=== PATIENT | female | born 1945 | race Caucasian/White ===

== ENCOUNTER 2020-10-11 10:13 | Outpatient (REF) | payer MEDICARE, SELFPAY ==
[2020-10-11 10:51] LABS: MANUAL DIFF FLAG NO
[2020-10-11 10:55] LABS: Basophils Absolute Auto 0.1 X10*3/uL (0.0-0.2); Eosinophils Absolute Auto 0.8 X10*3/uL (0.0-0.4); Eosinophils Percent Auto 13.7 % (0-4); Hematocrit 35.3 % (37-47); Hemoglobin 10.9 g/dl (12.0-16.0); Imm Gran Abs Auto 0.01 X10*3/uL (0.00-0.03); Imm Gran Pct Auto 0.2 % (0.0-0.4); Lymphocytes Absolute Auto 1.3 X10*3/uL (1.2-4.9); Lymphocytes Percent Auto 21.6 % (20-40); Mean Corpuscular HGB Conc 30.9 g/dl (31.0-35.0); Mean Corpuscular Hemoglobin 29.8 pg (27.0-33.0); Mean Corpuscular Volume 96.4 fL (80-98); Mean Platelet Volume 10.7 fL (9.4-12.3); Monocytes Absolute Auto 0.5 X10*3/uL (0.1-1.2); Neutrophils Absolute Auto 3.3 X10*3/uL (2.0-8.3); Neutrophils Percent Auto 55.5 % (45-73); Platelet Count 317 X10*3/uL (160-400); Red Blood Count 3.66 X10*6/uL (4.20-5.50)
[2020-10-11 11:16] LABS: Estimated Average Glucose 131 mg/dL; Hemoglobin A1c % 6.2 %
[2020-10-11 11:54] LABS: Alanine Aminotransferase 11 U/L (0-31); Albumin Level 4.2 g/dL (3.5-5.0); Alkaline Phosphatase 26 U/L (39-117); Anion Gap 15 (12-20); Aspartate Amino Transferase 14 U/L (5-31); Bilirubin Direct 0.2 mg/dL (0.0-0.5); Bilirubin Total 0.4 mg/dL (0.0-1.0); Blood Urea Nitrogen 42 mg/dL (9-16); Carbon Dioxide 32 mmol/L (22-29); Chloride 99 mmol/L (96-108); Estimated Glomerular Filt Rate 32; Glucose Random 95 mg/dL (60-115); Potassium 5.2 mmol/l (3.3-5.1); Sodium 141 mmol/L (135-145); Total Protein 6.9 g/dL (6.5-8.0)
[2020-10-11 11:59] LABS: TSH reflex Free T4 1.69 mIU/mL (0.32-4.0)
[2020-10-11 12:01] LABS: Creatinine Urine 69.08 mg/dL; Microalbum/Creatinine Ratio Ur 11.5 ug/mg cr
[2020-10-11 12:15] LABS: Syphilis Screen Nonreactive (Nonreactive)
[2020-10-12 13:02] LABS: Absolute CD3 Count 889 cells/uL (840-3060); Absolute CD4 Count 614 cells/uL (490-1740); Absolute CD8 Count 286 cells/uL (180-1170); Absolute Lymphocytes 1379 cells/uL (850-3900); CD4 CD8 Ratio 2.15 (0.86-5.00); Percent CD3 Cells 64 % (57-85); Percent CD4 Cells 45 % (30-61); Percent CD8 Cells 21 % (12-42)
== END 2020-10-11 10:14 | disposition home or self-care (01) ==
LOC: HO.LAB 10:13
PROVIDERS: PCP Pediatrics; Visit Provider Pediatrics
DX: D64.9 Anemia, unspecified (principal); E11.22 Type 2 diabetes mellitus with diabetic chronic kidney disease; E78.5 Hyperlipidemia, unspecified; I10 Essential (primary) hypertension; I48.0 Paroxysmal atrial fibrillation
CPT/HCPCS: 36415; 80053; 80076; 82043; 82248; 83036; 84443; 85025; 86359; 86360; 86780

== ENCOUNTER → 2020-11-27 13:59 | Outpatient (BNVA) | payer MEDICARE, SELFPAY | PROVIDERS: PCP Pediatrics; Visit Provider Internal Medicine | DX: I42.8 Other cardiomyopathies (principal); I48.0 Paroxysmal atrial fibrillation; I10 Essential (primary) hypertension; R55 Syncope and collapse; E11.8 Type 2 diabetes mellitus with unspecified complications | CPT/HCPCS: 93005; 99212 ==

== ENCOUNTER 2021-01-03 15:37 | Outpatient (REF) | payer MEDICARE, SELFPAY ==
--- NOTE | ~2021-01-03 | XR_ITS ---
EXAMINATION: XR BILATERAL HIPS WITH AP PELVIS CLINICAL INFORMATION: Bilateral hip pain COMPARISON: Left hip x-ray October 2018 TECHNIQUE: AP view of the pelvis and single views of each hip were obtained. FINDINGS: Bone alignment is normal. No fracture or dislocation is seen. There is moderate bilateral hip arthritis with joint space narrowing and osteophyte formation. There is a soft tissue calcification adjacent to the right greater trochanter. Bones of the pelvis are normal. There are degenerative changes of the spine. There is evidence of atherosclerotic disease. XR/XR hip BI w PEL1V IMPRESSION: Moderate bilateral hip arthritis.
== END 2021-01-03 15:38 | disposition home or self-care (01) ==
LOC: HO.XRAY 15:37
PROVIDERS: PCP Pediatrics; Visit Provider Pediatrics
DX: M25.551 Pain in right hip (principal); M25.552 Pain in left hip
CPT/HCPCS: 73521

== ENCOUNTER 2021-01-22 12:26 | Outpatient (REF) | payer MEDICARE, SELFPAY ==
--- NOTE | ~2021-01-22 | MM_ITS ---
EXAMINATION: MM DIAGNOSTIC DIGITAL BREAST TOMOSYNTHESIS, BILATERAL CLINICAL INFORMATION: Probable benign bilateral calcifications. Due for yearly. The lifetime risk of breast cancer based on the Tyrer-Cuzick Model is 2%. COMPARISON: Mammography: 11/04/2019, 10/30/2018, 04/29/2018, 10/29/2017, 10/23/2017 (new baseline). TECHNIQUE: Digital breast tomosynthesis is performed in both the craniocaudal and mediolateral oblique views along with computer-aided detection (CAD). Synthesized 2D images are generated from the tomosynthesis. FINDINGS: There are scattered areas of fibroglandular density (ACR BI-RADS breast composition Category b). Parenchymal pattern is similar to prior studies. There is no developing density or interval mass or architectural abnormality. Again, there are multiple bilateral vascular and coarse calcifications. The grouped coarse calcifications central 1:00 left breast and central 3:00 right breast are bilaterally similar, predominantly coarse and likely fibroadenomatous changes. There are no suspicious changes. The axilla and skin contours are unremarkable. Results are provided to the patient at time of visit by the technologist. MM/MM tomosynthesis diagnostic BI IMPRESSION: No significant changes from prior exams. ASSESSMENT: BI-RADS 2: Benign RECOMMENDATION: Routine annual mammography screening. This patient's information was entered into a reminder system with a target due date for their next mammogram.
== END 2021-01-22 12:27 | disposition home or self-care (01) ==
LOC: HO.MAMMO 12:26
PROVIDERS: Visit Provider Pediatrics
DX: R92.1 Mammographic calcification found on diagnostic imaging of breast (principal)
CPT/HCPCS: 77062; 77066

== ENCOUNTER 2021-04-18 10:45 | Outpatient (REF) | payer MEDICARE, SELFPAY ==
[2021-04-18 11:38] LABS: MANUAL DIFF FLAG NO
[2021-04-18 11:44] LABS: Basophils Percent Auto 0.4 % (0-2); Eosinophils Absolute Auto 0.8 X10*3/uL (0.0-0.4); Eosinophils Percent Auto 13.5 % (0-4); Hemoglobin 11.1 g/dl (12.0-16.0); Imm Gran Abs Auto 0.01 X10*3/uL (0.00-0.03); Imm Gran Pct Auto 0.2 % (0.0-0.4); Lymphocytes Absolute Auto 1.4 X10*3/uL (1.2-4.9); Lymphocytes Percent Auto 24.5 % (20-40); Mean Corpuscular HGB Conc 30.8 g/dl (31.0-35.0); Mean Corpuscular Hemoglobin 29.9 pg (27.0-33.0); Mean Platelet Volume 10.4 fL (9.4-12.3); Monocytes Absolute Auto 0.4 X10*3/uL (0.1-1.2); Monocytes Percent Auto 7.6 % (2-11); Neutrophils Percent Auto 53.8 % (45-73); Platelet Count 278 X10*3/uL (160-400); Red Blood Count 3.71 X10*6/uL (4.20-5.50); Red Cell Distribution Width 15.6 % (11.0-16.0); White Blood Count 5.6 X10*3/uL (4.8-10.8)
[2021-04-18 12:10] LABS: Alanine Aminotransferase 6 U/L (0-31); Alkaline Phosphatase 32 U/L (39-117); Anion Gap 13 (12-20); Aspartate Amino Transferase 13 U/L (5-31); Bilirubin Total 0.4 mg/dL (0.0-1.0); Blood Urea Nitrogen 46 mg/dL (9-16); Calcium 9.4 mg/dL (8.4-10.2); Carbon Dioxide 31 mmol/L (22-29); Chloride 103 mmol/L (96-108); Cholesterol 259 mg/dL; Estimated Glomerular Filt Rate 27; Glucose Random 81 mg/dL (60-115); HDL Cholesterol 57 mg/dL; LDL Cholesterol Calculated 179 mg/dl; Potassium 5.2 mmol/L (3.3-5.1); Sodium 142 mmol/L (135-145); Total Protein 6.9 g/dL (6.5-8.0); Triglycerides 118 mg/dL
[2021-04-18 12:24] LABS: TSH reflex Free T4 1.81 uIU/mL (0.32-4.0)
[2021-04-18 12:28] LABS: Vitamin B12 1244 pg/mL (200-900)
[2021-04-18 12:38] LABS: Erythrocyte Sedimentation Rate 21 MM/HR (0-20)
[2021-04-18 13:21] LABS: Creatinine Urine 86.81 mg/dL; Microalbum/Creatinine Ratio Ur 18.4 ug/mg cr
== END 2021-04-18 10:46 | disposition home or self-care (01) ==
LOC: HO.LAB 10:45
PROVIDERS: PCP Pediatrics; Visit Provider Pediatrics
DX: I48.0 Paroxysmal atrial fibrillation (principal); I10 Essential (primary) hypertension; E78.5 Hyperlipidemia, unspecified; E11.9 Type 2 diabetes mellitus without complications; D64.9 Anemia, unspecified; D63.8 Anemia in other chronic diseases classified elsewhere
CPT/HCPCS: 36415; 80053; 80061; 82043; 82306; 82550; 82607; 84443; 85025; 85652

== ENCOUNTER → 2021-08-06 15:06 | Outpatient (BNVA) | payer MEDICARE, SELFPAY | PROVIDERS: PCP Pediatrics; Referring Provider Pediatrics; Visit Provider Internal Medicine | DX: I42.8 Other cardiomyopathies (principal); I48.0 Paroxysmal atrial fibrillation; I10 Essential (primary) hypertension; E11.8 Type 2 diabetes mellitus with unspecified complications; R55 Syncope and collapse | CPT/HCPCS: 99212 ==

== ENCOUNTER 2021-12-24 14:50 | Outpatient (REF) | payer OTHER, SELFPAY ==
--- NOTE | 2021-12-24 | PFT_ITS ---
Post test, the patient is unable to complete maneuvers, both the spirometry, could not complete the lung volume maneuvers, and also could not complete the diffusion capacity maneuvers. The patient was very tired throughout the test. Therefore, the numbers cannot be interpreted correctly. Also to note, the patient became very dizzy after attempting the maneuvers. Therefore, I would not recommend the patient try to undergo pulmonary function studies again. This study was suboptimal. MD SHELBIE [place]/LIAM / [phone]
== END 2021-12-24 14:51 | disposition home or self-care (01) ==
LOC: HO.RESP 14:50
PROVIDERS: PCP Pediatrics; Visit Provider Internal Medicine
DX: Z13.89 Encounter for screening for other disorder (principal)

== ENCOUNTER 2022-01-28 02:27 | Emergency (ER) | payer OTHER, SELFPAY ==
--- NOTE | ~2022-01-28 | XR_ITS ---
EXAMINATION: XR CHEST CLINICAL INFORMATION: Wheezing, dyspnea, rule out pneumonia or CHF COMPARISON: 06/07/2020 TECHNIQUE: Frontal view of the chest was obtained. FINDINGS: Lung volumes are symmetric. No focal consolidation is seen. Central peribronchial thickening is noted. No evidence of pneumothorax, significant pleural effusion, or overt pulmonary edema. The cardiomediastinal contour is unremarkable. No acute osseous findings are seen. XR/XR chest 1V IMPRESSION: No focal consolidation or overt edema. Central peribronchial thickening suggesting airways disease which may be chronic.
[2022-01-28 02:38] VITALS: BP 198/75; PULSE 77; RESP 20; TEMP 36; O2SAT 98; BMI 32.8
[2022-01-28 02:58] LABS: Hematocrit 33.7 % (37.0-47.0); Hemoglobin 10.3 g/dl (12.0-16.0); Mean Corpuscular HGB Conc 30.6 g/dl (31.0-35.0); Mean Corpuscular Hemoglobin 28.8 pg (27.0-33.0); Mean Corpuscular Volume 94.1 fL (80.0-98.0); Mean Platelet Volume 10.8 fL (9.4-12.3); Platelet Count 288 X10*3/uL (160-400); Red Blood Count 3.58 X10*6/uL (4.20-5.50); Red Cell Distribution Width 15.9 % (11.0-16.0); White Blood Count 7.7 X10*3/uL (4.8-10.8)
--- NOTE | 2022-01-28 03:06 | ECG_ITS ---
Test Reason : SOB Blood Pressure : / mmHG Vent. Rate : 077 BPM Atrial Rate : 000 BPM P-R Int : 000 ms QRS Dur : 074 ms QT Int : 426 ms P-R-T Axes : 000 058 085 degrees QTc Int : 482 ms Normal sinus rhythm Normal ECG When compared with ECG of 26-SEP-2019 16:25, No significant changes seen Referred By: Jeronimo Landis Electronically Signed By:MARQUES BELLE MD
--- NOTE | 2022-01-28 03:06 | ED.ASTHMA ---
HPI - Asthma General Chief Complaint: Asthma Stated Complaint: COPD, wheeze/cough Time Seen by Provider: 01/28/22 02:55 Source: patient and family (Granddaughter) Mode of arrival: ambulatory Limitations: language barrier (Patient speaks Tristanian, granddaughter speaks Tristanian and Kittitian, lamp stack developer was used) History of Present Illness HPI Narrative: 76-year-old female who was brought to the emergency department by her granddaughter for evaluation of shortness of breath and wheezing. According to the daughter, they had a very long day today celebrating mother's Day. The patient did eat ice cream and cake as well as other food at home. When the granddaughter was getting ready to put the patient to bed she noted that the patient was wheezing and appeared to be short of breath. This concerned the granddaughter and she brought the patient to the emergency department for evaluation. The patient has had a slight cough which is occasionally productive of white phlegm. She denied headache, nausea, vomiting, chest pain, abdominal pain, change in bowel movements, frequency, urgency, dysuria. She does feel short of breath and states she does feel short of breath when she walks around. MD complaint: wheezing Onset (ago): hour(s) (3) Severity: moderate Context: none known Associated symptoms: dry cough (The occasional nonproductive) and leg edema (Unchanged from baseline) Asthma History: other (History of asthma and COPD) Related Data Current Asthma Therapy: inhaled bronchodilator Home Medications Medication Instructions Recorded Confirmed acetaminophen 300 mg-codeine 30 mg 1 tab PO DAILY PRN 11/27/20 08/06/21 tablet alendronate 70 mg tablet 70 mg PO QWEEK 11/27/20 08/06/21 amlodipine 10 mg tablet 10 mg PO DAILY 11/27/20 08/06/21 atorvastatin 40 mg tablet 40 mg PO BEDTIME 11/27/20 08/06/21 candesartan 16 mg tablet 16 mg PO DAILY 11/27/20 08/06/21 cholecalciferol (vitamin D3) 50 50 mcg PO DAILY 11/27/20 08/06/21 mcg (2,000 unit) tablet docusate sodium 100 mg capsule 100 mg PO BID PRN 11/27/20 08/06/21 duloxetine 60 mg capsule,delayed 60 mg PO DAILY 11/27/20 08/06/21 release ferrous sulfate 325 mg (65 mg 325 mg PO TID 11/27/20 08/06/21 iron) tablet gabapentin 100 mg capsule 100 mg PO DAILY 11/27/20 08/06/21 hydralazine 25 mg tablet 25 mg PO BID 11/27/20 08/06/21 insulin glargine 100 unit/mL 15 unit SUBCUT BEDTIME 11/27/20 08/06/21 subcutaneous solution lidocaine-prilocaine 2.5 %-2.5 % 2.5 g TOPICAL DAILY 11/27/20 08/06/21 topical cream metformin 1,000 mg tablet 1,000 mg PO BID 11/27/20 08/06/21 omega-3 fatty acids-fish oil 340 1 cap PO BID 11/27/20 08/06/21 mg-1,000 mg capsule pantoprazole 40 mg tablet,delayed 40 mg PO DAILY 11/27/20 08/06/21 release simethicone 180 mg capsule 180 mg PO TID PRN 11/27/20 08/06/21 glipizide 10 mg tablet 10 mg PO BID 08/06/21 08/06/21 Previous Rx's Medication Instructions Recorded furosemide 40 mg tablet 40 mg PO DAILY #90 tab 01/23/21 apixaban 5 mg tablet (Eliquis) 5 mg PO BID #180 tab 08/06/21 metoprolol tartrate 50 mg tablet 50 mg PO BID 90 Days #180 tab 08/06/21 Allergies Allergy/AdvReac Type Severity Reaction Status Date / Time faviola [FAVIOLA] AdvReac Intermediate NAUSEA & Verified 08/06/21 15:34 VOMITING Penicillins [PENICILLINS] AdvReac Unknown NAUSEA & Verified 08/06/21 15:34 VOMITING YUCA Allergy Unknown NAUSEA & Uncoded 08/06/21 15:34 VOMITING SARDINES AdvReac Intermediate NAUSEA & Uncoded 08/06/21 15:34 VOMITING Review of Systems Review of Systems: Yes all other systems are reviewed and are negative [facility] Past Medical History [facility] Narrative: Social history: The patient lives at home with her daughter. She does not smoke cigarettes. She does not drink alcohol. She does not use drugs. Medical History Cardiomyopathy Essential hypertension PAF (paroxysmal atrial fibrillation) Type 2 diabetes mellitus with unspecified complications Vasovagal syncope Surgical History No pertinent past surgical history Family History Family History Father No problems noted. Mother No problems noted. Social History Social History Alcohol intake: never Patient Tobacco Use Status: Never used Tobacco Use of substances other than those prescribed or required for medical reasons: No Advance Directives: No Advance Directives Information Provided: Yes Physical Exam Vital Signs: Vital Signs: Last Vital Signs Temp 97.9 F 01/28/22 03:08 Pulse 77 01/28/22 03:08 Resp 15 01/28/22 03:08 BP 174/68 H 01/28/22 03:08 Pulse Ox 99 01/28/22 03:08 BMI result Body Mass Index 32.8 Const: Other: Awake, alert, female patient, she is very pleasant and cooperative, she does not appear to be in distress. HEENT: Head: Yes normal to inspection, Yes normocephalic and Yes atraumatic Ears: external ears normal General nose exam: Normal external nose present Face and sinus: Yes normal facial exam Mouth: Normal oral and palatal mucosa present Throat: Yes posterior oropharynx normal Eyes: General: appearance normal, both eyes and all related structures Pupils: Equal, round and reactive pupils present Neck: Neck: Yes normal visual inspection, Yes no lymphadenopathy, Yes trachea midline and Yes supple Chest: Chest palpation & inspection: normal inspection of the chest and normal palpation of entire chest wall Resp: Effort & Inspection: normal respiratory effort and able to speak in complete sentences Auscultation: wheezes (Diffuse wheezing) Cardio: Rate: regular rate Rhythm: regular rhythm Heart sounds: S1 normal heart sound present, S2 normal heart sound present and no murmurs GI: Inspection: Yes normal to inspection Palpation (GI): Soft to palpation, nontender and no guarding Auscultation: normal bowel sounds : General: Yes no CVA tenderness Back/Spine/Pelvis: Back: no CVA tenderness Skin: General skin exam: no rashes or lesions noted Neuro: Cranial nerves: Yes CN's II-XII intact bilaterally and Yes Equal, round and reactive pupils present Cognition (Neuro): normal cognition Motor exam (neuro): 5/5 motor strength present throughout Extrem: Other: Trace to 1+ pitting edema, bilaterally symmetric Psych: Appearance: grossly normal Speech and movement: Normal speech and movement present Affect: normal affect Attitude: cooperative Thought process: Normal thought process present Thought content: Normal thought content present Course Course Course Narrative: 76-year-old female brought emergency department by her family for evaluation of wheezing, shortness of breath and a cough which is mainly nonproductive occasionally productive of white phlegm. Patient does have a history asthma, COPD, cardiomyopathy. Vital signs revealed an elevated systolic blood pressure of 174/68 otherwise unremarkable. Examination did reveal diffuse wheezing and trace to 1+ lower extremity pitting edema which is symmetric. Differential includes but is not limited to COPD exacerbation, bronchitis with bronchospasm, pulmonary edema, pneumonia. I did order laboratory evaluation includes CBC, CMP, troponin, BNP. I will check a chest x-ray and EKG on the patient as well. Patient was ordered to get a DuoNeb for her wheezing. 0454: Laboratory evaluation: Anemia I H&H of 10.3 and 33.7, chronic. Elevated BUN and creatinine of 48 and 1.84, chronic. High sensitivity troponin I was detectable but not elevated at 6.7. BNP was elevated 237. Radiology evaluation: Chest x-ray revealed no congestive heart failure or pneumonia. Impression is that the patient may be slightly fluid overloaded causing her to have wheezing and possibly an asthma exacerbation as well. The patient did get improvement with the DuoNeb and she has only slight expiratory wheezing at the bases. The patient was given furosemide 80 mg IV and discharged home. I did discuss this plan with the patient's granddaughter and the patient as well. Patient is to restrict fluid today and then resume her normal dose of Lasix tomorrow. MDM - Asthma Lab Data Result diagrams: 01/28/22 02:53 01/28/22 02:53 Labs: Lab Results 01/28/22 01/28/22 01/28/22 Range/Units 02:53 02:53 02:53 WBC 7.7 (4.8-10.8) X10*3/uL RBC 3.58 L (4.20-5.50) X10*6/uL Hgb 10.3 L (12.0-16.0) g/dl Hct 33.7 L (37.0-47.0) % MCV 94.1 (80.0-98.0) fL MCH 28.8 (27.0-33.0) pg MCHC 30.6 L (31.0-35.0) g/dl RDW 15.9 (11.0-16.0) % Plt Count 288 (160-400) X10*3/uL MPV 10.8 (9.4-12.3) fL Absolute Nucleated RBC 0.000 (0.0-0.012) X10*3/uL Nucleated RBC % (auto) 0.0 (0.0-0.2) /100WBC Sodium 142 (135-145) mmol/L Potassium 4.8 (3.3-5.1) mmol/L Chloride 104 (96-108) mmol/L Carbon Dioxide 26 (22-29) mmol/L Anion Gap 17 (12-20) BUN 48 H (9-16) mg/dL Creatinine 1.89 H (0.5-1.4) mg/dL Estim Creat Clear Calc 25.5 Estimated GFR 26 Random Glucose 170 H (60-115) mg/dL Calcium 9.4 (8.4-10.2) mg/dL Total Bilirubin 0.2 (0.0-1.0) mg/dL AST 21 D (5-31) U/L ALT 11 (0-31) U/L Alkaline Phosphatase 34 L (39-117) U/L Troponin I High Sens 6.7 (<3.5-17.0) ng/L B-Natriuretic Peptide 237 H (<100) pg/mL Total Protein 7.0 (6.5-8.0) g/dL Albumin 4.1 (3.5-5.0) g/dL ECG Data Attestation: I personally reviewed and interpreted this ECG as follows: Interpretation: 0310: Normal sinus rhythm with a rate of 77, normal DC, QRS and QTC intervals, no ST segment elevation, no ST segment depression, no significant T-wave abnormalities, no PVCs, no PACs. Discharge Plan Discharge Clinical Impression: Pulmonary edema Qualifiers: Chronicity: acute Qualified Code(s): J81.0 - Acute pulmonary edema Asthma exacerbation Qualifiers: Asthma severity: mild Patient Disposition: Home, Self-Care Instructions: Fluid Restriction (ED) Additional Instructions: Your chest x-ray was unremarkable, there was no pneumonia and there was no evidence for a large amount of fluid in your lungs (congestive heart failure). Your high sensitivity troponin I (marker for heart damage) was not elevated. Your BNP (marker of fluid in the lung) is was elevated at 237 (less than 100 is normal). Given these findings I believe that you may have drank too much fluid yesterday and you now have some small amount of fluid in your lungs that are making you short of breath and this is also causing you to have an asthma exacerbation. Your given Lasix (furosemide) 80 mg IV prior to being discharged from the emergency department. This should make you urinate approximately 1-2 L and hopefully will improve your symptoms. You should restrict the amount of fluid that you drink today. Take your next dose of oral Lasix (furosemide) tomorrow. Follow-up with your doctor in 2 days. Please return to the emergency department if your symptoms get worse or if you develop any symptoms that are concerning to you. Prescriptions: No Action furosemide 40 mg tablet 40 mg PO DAILY Qty: 90 3RF duloxetine 60 mg capsule,delayed release(DR/EC) 60 mg PO DAILY 0RF amlodipine 10 mg tablet 10 mg PO DAILY 0RF lidocaine-prilocaine 2.5-2.5 % cream 2.5 g topical DAILY 0RF gabapentin 100 mg capsule 100 mg PO DAILY 0RF pantoprazole 40 mg tablet,delayed release (DR/EC) 40 mg PO DAILY 0RF hydralazine 25 mg tablet 25 mg PO BID 0RF candesartan 16 mg tablet 16 mg PO DAILY 0RF Fish Oil 340-1,000 mg capsule 1 cap PO BID 0RF docusate sodium 100 mg capsule 100 mg PO BID PRN (Reason: constipation) 0RF alendronate 70 mg tablet 70 mg PO QWEEK 0RF atorvastatin 40 mg tablet 40 mg PO BEDTIME 0RF ferrous sulfate 325 mg (65 mg iron) tablet 325 mg PO TID 0RF simethicone 180 mg capsule 180 mg PO TID PRN (Reason: Constipation) 0RF Lantus U-100 Insulin 100 unit/mL solution 15 unit subcut BEDTIME 0RF metformin 1,000 mg tablet 1,000 mg PO BID 0RF acetaminophen-codeine 300-30 mg tablet 1 tab PO DAILY PRN (Reason: Pain) 0RF cholecalciferol (vitamin D3) 50 mcg (2,000 unit) tablet 50 mcg PO DAILY 0RF glipizide 10 mg tablet 10 mg PO BID 0RF Eliquis 5 mg tablet 5 mg PO BID Qty: 180 3RF metoprolol tartrate 50 mg tablet 50 mg PO BID 90 Days Qty: 180 3RF
[2022-01-28 03:08] VITALS: BP 174/68; PULSE 77; RESP 15; TEMP 36.6; O2SAT 99
[2022-01-28 03:21] LABS: Alanine Aminotransferase 11 U/L (0-31); Albumin Level 4.1 g/dL (3.5-5.0); Alkaline Phosphatase 34 U/L (39-117); Anion Gap 17 (12-20); Aspartate Amino Transferase 21 U/L (5-31); Bilirubin Total 0.2 mg/dL (0.0-1.0); Blood Urea Nitrogen 48 mg/dL (9-16); Calcium 9.4 mg/dL (8.4-10.2); Carbon Dioxide 26 mmol/L (22-29); Chloride 104 mmol/L (96-108); Creatinine Clr Calc Pharmacy 25.5; Estimated Glomerular Filt Rate 26; Glucose Random 170 mg/dL (60-115); Potassium 4.8 mmol/L (3.3-5.1); Sodium 142 mmol/L (135-145)
[2022-01-28 03:32] LABS: B Type Natriuretic Peptide 237 pg/mL (<100); Troponin-I High Sensitivity 6.7 ng/L (<3.5-17.0)
[2022-01-28] MEDS: Furosemide 100 MG/10 ML VIAL 80 MG IVPUSH (05:12)
== END 2022-01-28 05:32 | disposition home or self-care (01) ==
PROVIDERS: Emergency Provider Emergency Medicine Emergency Medical Services
DX: J45.901 Unspecified asthma with (acute) exacerbation (principal); J81.0 Acute pulmonary edema; R06.02 Shortness of breath; I48.0 Paroxysmal atrial fibrillation; I10 Essential (primary) hypertension; E11.9 Type 2 diabetes mellitus without complications
CPT/HCPCS: 36415; 71045; 80053; 83880; 84484; 85027; 93005; 96374; 99284; 99285; J1940

== ENCOUNTER → 2022-02-04 15:50 | Outpatient (BNVA) | payer OTHER, SELFPAY | PROVIDERS: PCP Pediatrics; Referring Provider Pediatrics; Visit Provider Internal Medicine | DX: I48.0 Paroxysmal atrial fibrillation (principal); I11.0 Hypertensive heart disease with heart failure; I50.33 Acute on chronic diastolic (congestive) heart failure; R55 Syncope and collapse; E11.8 Type 2 diabetes mellitus with unspecified complications | CPT/HCPCS: 99212 ==

== ENCOUNTER → 2022-03-12 09:39 | Outpatient (REF) | payer OTHER, SELFPAY ==
--- NOTE | ~2022-03-12 | NM_ITS ---
Myocardial perfusion study Indication: Diastolic heart failure to evaluate for myocardial ischemia Technique: The patient was brought in for a Lexiscan perfusion study on 03/12/2022. Patient performed low-level exercise and was injected 0.4 mg of Lexiscan intravenously. Within a minute of injection, 30 mCi of sestamibi was given intravenously. Images were obtained using the SPECT gamma camera interlaced with the gating device. Images were obtained in supine position. Resting perfusion study was performed on 03/13/2022. Patient was administered 30 mCi of sestamibi intravenously at rest. Images were then obtained in supine position. Images obtained with and without CT attenuation. Total DLP 136 mGy-cm. Images were processed with the software and compared side to side in short axis, horizontal long axis and vertical long axis views. Findings: The stress perfusion study showed non attenuated images show mildly reduced uptake in the basal septum of the LV myocardium. Remainder of the LV myocardium is normally perfused. Attenuation corrected images show minimally reduced/thinning of the apical septal wall of the LV myocardium. The gated study shows low normal LV systolic function with calculated LVEF of 51%. LV cavity is normal in size. The gated study shows normal systolic wall thickening and contraction of segments. Resting study shows no significant change in perfusion pattern compared to stress perfusion study. Gating at rest reveals normal systolic wall motion with ejection fraction at 46%. The findings are consistent with no clear reversible defect suggestive of ischemia. NM/NM cardiolite stress test Impression: 1. Myocardial perfusion imaging study shows likely normal myocardial perfusion 2. Gated LVEF is 51% 3. Transient ischemic dilatation not present EKG is nondiagnostic for ischemia
--- NOTE | 2022-03-12 09:42 | CA_ITS ---
Acquisition Time: 2022-03-12 10:17:16 Total Exercise Time: 00:02:00 Test Indications: Syncope HEART FAILURE Medications: SEE H Protocol: LEXISCAN Max HR: 096 BPM 67% of Pred: 143 BPM Max BP: 146/072 mmHG Max Work Load: 1.0 METS Pharmacological stress test with Lexiscan injection, while sitting and moving left arm, with mild sob, no chest discomfort, with isolated PVC, with normotensive response to injection, with nondiagnostic EKG for ischemia. In recovery she reported abdominal discomfort and was treated with Aminophylline 75mg IVP to reverse Lexiscan with resolution of symptom. Nuclear images pending. Test reviewed with Dr Vaughan. Referred By: Josemanuel Wheeler Overread By: PADMAJA ALATORRE
== END ==
LOC: HO.CARD 09:39
PROVIDERS: Visit Provider Internal Medicine
DX: I50.33 Acute on chronic diastolic (congestive) heart failure (principal)
CPT/HCPCS: 78452; 93017; A9500; J0280; J2785

== ENCOUNTER → 2022-04-12 07:15 | Outpatient (REF) | payer OTHER, SELFPAY ==
--- NOTE | 2022-04-12 07:22 | CA_ITS ---
Transthoracic Echocardiogram Patient (Last, First, Middle): Belen Lemus, Gender: Female Date of : 1945 Age: 76 Procedure Date: 04/12/2022 Procedure Type: Transthoracic Echocardiogram Location: OP Height: 154.94 cm Weight: 84.37 kg BSA: 1.83 m2 Heart Rate: 76 bpm BP: 152 / 76 mmHg Business Intern: SB Referring MD: Josemanuel Wheeler MD Symptoms: I50.33 - Acute on chronic diastolic (congestive) heart fa... Study Quality: Adequate ECG Rhythm: Sinus Conclusions: - Normal left ventricular size, thickness, and systolic function. The visually estimated ejection fraction is between 55-60%. - Mildly increased right ventricular cavity size. There is normal right ventricular systolic function. - Moderately elevated right atrial pressure. Severe pulmonary hypertension is present. Findings Left Ventricle Normal left ventricular size, thickness, and systolic function. The visually estimated ejection fraction is between 55-60%. There is no evidence of regional wall motion abnormalities. Abnormal diastolic function is noted. Spectral Doppler is indicative of a pseudonormal filling pattern. E/E prime ratio is >15, consistent with elevated filling pressures. Right Ventricle Mildly increased right ventricular cavity size. There is normal right ventricular systolic function. Atria The left atrium is mildly dilated. Aortic Valve There is a normal trileaflet aortic valve. There is no aortic valve stenosis. There is no aortic valve regurgitation. Mitral Valve There is mild mitral annular calcification. There is no mitral valve regurgitation. There is no mitral valve stenosis. Pulmonic Valve Normal pulmonic valve structure and function. There is trace pulmonic valve regurgitation. Tricuspid Valve Normal tricuspid valve structure and function. There is trace tricuspid valve regurgitation. Moderately elevated right atrial pressure. Severe pulmonary hypertension is present. Great Vessels All visible segments of the aorta are normal in size. The visualized portions of the pulmonary artery and branches are normal. Venous The inferior vena cava is dilated and collapses less than 50% with inspiration. Pericardium/Pleural There is no evidence of pericardial effusion. Prior Study Comparison Changes noted compared to prior study dated: 10/25/2019. RV mildly dilated. Severe pulmonary hypertension. Measurements 2D Linear Measurements IVSd: 1.04 0.6-0.9/0.6-1.0 cm LVIDd: 4.36 3.9-5.3/4.2-5.9 cm LVIDd Index: 2.38 2.4-3.2/2.2-3.1 cm/m2 LVIDs: 2.92 2.0-3.6 cm LVPWd: 0.88 0.7-1.1 cm LA Diam: 3.90 2.7-3.8/3.0-4.0 cm LAIDs Index: 2.13 1.5-2.3 cm/m2 LV Mass: 171.14 67-162/88-224 g LV Mass Index: 93.52 43-95/49-115 g/m2 LVOT Diam: 2.20 3.0+(-)1.3 cm 2D Systolic Function EF 4C: 50.00 >55% EF 2C: 47.80 >55% EF BiP: 48.80 >55% Mitral Valve MV Pk E: 1.48 MV PK A: 0.81 MV Decel Time: 199.00 E/A: 1.80 E'Lateral: 6.15 E'Medial: 4.58 E/E' Med: 32.30 E/E' Lat: 24.10 PHT: 58.00 MVA PHT: 3.79 Decel [place]: 7.45 Aortic Valve AoV Pk Son: 1.21 AoV Mn Son: 0.83 AoV VTI: 0.27 AoV Pk Grad: 6.00 Aov Mn Grad: 3.00 GERSON Cont.VTI: 2.62 LVOT LVOT Pk Son: 0.84 LVOT Mn Son: 0.62 LVOT VTI: 0.18 LVOT Pk Grad: 3.00 LVOT Mn Grad: 2.00 LVOT Diam: 2.20 LVOT Area: 3.80 Diastolic Function MV Pk E: 1.48 MV Pk A: 0.81 E/A: 1.80 E'Medial: 4.58 E/E' Med: 32.30 E' Laterial: 6.15 E/E' Lat: 24.10 Right Ventricle TAPSE (mm): 17.40 TVS' Son: 9.17 Tricuspid Valve TR Pk Son: 4.09 TR Pk Grad: 67.00 RA Press: 8.00 RVSP: 75.00 Great Vessels Aorta Sinus of Valsalva: 2.60 2.0-3.5 cm Ao Asc: 3.10 2.1-3.4 cm Pulmonary Veins Pulm Vein S/D 0.80 Pulmonary Valve PV Pk Son: 0.91 Peak PV Grad: 3.00 Updated in Other Vendor System with Status of Final Pee Borges MD electronically signed on 04/13/2022 8:42:03 PM with status of Final
== END ==
LOC: HO.CARD 07:15
PROVIDERS: Visit Provider Internal Medicine
DX: I50.33 Acute on chronic diastolic (congestive) heart failure (principal)
CPT/HCPCS: 93306

== ENCOUNTER → 2022-05-14 13:04 | Outpatient (BNVA) | payer OTHER, SELFPAY | PROVIDERS: PCP Pediatrics; Visit Provider Hospitalist | DX: I27.20 Pulmonary hypertension, unspecified (principal); J45.909 Unspecified asthma, uncomplicated; G47.33 Obstructive sleep apnea (adult) (pediatric) | CPT/HCPCS: 99202 ==

== ENCOUNTER → 2022-05-20 14:42 | Outpatient (BNVA) | payer OTHER, SELFPAY | PROVIDERS: PCP Pediatrics; Referring Provider Pediatrics; Visit Provider Internal Medicine | DX: I11.0 Hypertensive heart disease with heart failure (principal); I50.32 Chronic diastolic (congestive) heart failure; I48.0 Paroxysmal atrial fibrillation; I27.20 Pulmonary hypertension, unspecified; E11.8 Type 2 diabetes mellitus with unspecified complications | CPT/HCPCS: 93005; 99212 ==

== ENCOUNTER → 2022-06-03 13:31 | Outpatient (REF) | payer OTHER, SELFPAY | LOC: HO.SL 13:31 | PROVIDERS: PCP Pediatrics; Visit Provider Hospitalist | DX: G47.33 Obstructive sleep apnea (adult) (pediatric) (principal); I27.20 Pulmonary hypertension, unspecified | CPT/HCPCS: 95806 ==

== ENCOUNTER → 2022-06-06 13:50 | Outpatient (REF) | payer OTHER, SELFPAY ==
--- NOTE | ~2022-06-06 | NM_ITS ---
EXAMINATION: PULMONARY PERFUSION STUDY CLINICAL INFORMATION: Pulmonary hypertension, cardiomyopathy. COMPARISON: No previous lung scan is available for comparison. Radiographs of the chest dated 06/06/2022, the same date as this lung scan, are available for comparison. TECHNIQUE: Following the intravenous injection of 1.0 mCi Tc-99m MAA, the lungs were imaged in the anterior and posterior, left and right lateral and PAKISTANI, LEBRON, LPO, and RPO projections using a gamma scintillation camera. FINDINGS: No segmental perfusion defects are present. There is mild heterogeneity present bilaterally. There are no focal anatomic appearing perfusion defects present. NM/NM pul perfusion IMPRESSION: Very low probability of pulmonary embolism.
--- NOTE | ~2022-06-06 | XR_ITS ---
EXAMINATION: XR CHEST 2 VIEWS CLINICAL INFORMATION: Hypertension. COMPARISON: Prior chest radiographs, most recently 01/28/2022. TECHNIQUE: Frontal and lateral views of the chest were obtained. FINDINGS: The heart, great vessels, pulmonary vasculature and mediastinum are normal. The lungs show no focal infiltrate, effusion or pneumothorax. There is no acute osseous abnormality. There is a mild thoracic dextroscoliosis. There is multi-level thoracic spondylosis. XR/XR chest 2V IMPRESSION: No active cardiopulmonary disease.
== END ==
LOC: HO.NUCMED 13:50
PROVIDERS: Visit Provider Hospitalist
DX: I27.20 Pulmonary hypertension, unspecified (principal)
CPT/HCPCS: 71046; 78580; A9540

== ENCOUNTER → 2022-07-29 14:51 | Outpatient (REF) | payer OTHER, SELFPAY ==
--- NOTE | 2022-07-29 14:53 | CA_ITS ---
Transthoracic Echocardiogram Patient (Last, First, Middle): Belen Lemus, Gender: Female Date of : 1945 Age: 76 Procedure Date: 07/29/2022 Procedure Type: Transthoracic Echocardiogram Location: OP Height: 154. cm Weight: 84. kg BSA: 1.82 m2 Heart Rate: 79 bpm BP: 130 / 64 mmHg Roller Shop Utility Worker: CHELSEA Referring MD: Josemanuel Wheeler MD Metal Smelter: Skyler Vaughan MD Symptoms: I27.20 - Pulmonary hypertension, unspecified Study Quality: Adequate ECG Rhythm: Sinus Conclusions: - Moderately elevated right ventricular systolic pressure Findings Left Ventricle Normal left ventricular size, thickness, and systolic function. The visually estimated ejection fraction is between 55-60%. Tricuspid Valve Normal right atrial pressure. Moderate pulmonary hypertension is present. Venous The inferior vena cava is normal in size and collapses greater than 50% with inspiration. Pericardium/Pleural There is no evidence of pericardial effusion. Prior Study Comparison Changes noted compared to prior study dated: 04/12/2022. RV systolic pressure has improved Measurements 2D Linear Measurements IVSd: 1.11 0.6-0.9/0.6-1.0 cm LVIDd: 4.43 3.9-5.3/4.2-5.9 cm LVIDd Index: 2.43 2.4-3.2/2.2-3.1 cm/m2 LVIDs: 3.28 2.0-3.6 cm LVPWd: 0.88 0.7-1.1 cm LV Mass: 184.91 67-162/88-224 g LV Mass Index: 101.60 43-95/49-115 g/m2 Tricuspid Valve TR Pk Son: 3.56 TR Pk Grad: 51.00 RA Press: 3.00 RVSP: 54.00 Updated in Other Vendor System with Status of Final Skyler Vaughan MD electronically signed on 07/29/2022 3:53:47 PM with status of Final
== END ==
LOC: HO.CARD 14:51
PROVIDERS: Visit Provider Internal Medicine
DX: I27.20 Pulmonary hypertension, unspecified (principal)
CPT/HCPCS: 93308

== ENCOUNTER → 2022-08-14 14:13 | Outpatient (BNVA) | payer OTHER, SELFPAY | PROVIDERS: PCP Pediatrics; Referring Provider Pediatrics; Visit Provider Internal Medicine | DX: I11.0 Hypertensive heart disease with heart failure (principal); I50.32 Chronic diastolic (congestive) heart failure; I48.0 Paroxysmal atrial fibrillation; I27.20 Pulmonary hypertension, unspecified; E11.8 Type 2 diabetes mellitus with unspecified complications | CPT/HCPCS: 99212 ==

== ENCOUNTER → 2022-08-19 13:01 | Outpatient (BNVA) | payer OTHER, SELFPAY | PROVIDERS: Visit Provider Hospitalist | DX: J45.909 Unspecified asthma, uncomplicated (principal); G47.33 Obstructive sleep apnea (adult) (pediatric); I27.20 Pulmonary hypertension, unspecified | CPT/HCPCS: Q3014 ==

== ENCOUNTER → 2023-01-29 13:13 | Outpatient (REF) | payer OTHER, SELFPAY ==
--- NOTE | 2023-01-29 13:16 | CA_ITS ---
Transthoracic Echocardiogram Patient (Last, First, Middle): Belen Lemus, Gender: Female Date of : 1945 Age: 77 Procedure Date: 01/29/2023 Procedure Type: Transthoracic Echocardiogram Location: OP Height: 154.94 cm Weight: 85.28 kg BSA: 1.84 m2 Heart Rate: 72 bpm BP: 150 / 65 mmHg Field Advisor: DUNG Referring MD: Josemanuel Wheeler MD Symptoms: I27.20 - Pulmonary hypertension, unspecified Study Quality: Adequate ECG Rhythm: Atrial Fibrillation Conclusions: - The left ventricular systolic function is normal. The calculated ejection fraction is 55% by biplane method. - Evidence suggests grade II (moderate) diastolic dysfunction. - The basal inferior segment is hypokinetic. - No obvious valvular pathology seen on this study. - There is no evidence of pulmonary hypertension. Findings Left Ventricle Normal left ventricular cavity size. There is normal left ventricular wall thickness. The left ventricular systolic function is normal. The calculated ejection fraction is 55% by biplane method. E/E prime ratio is >15, consistent with elevated filling pressures. Evidence suggests grade II (moderate) diastolic dysfunction. LV peak GLS -12.4%. Wall Motion Rest Echo Findings The basal inferior segment is hypokinetic. Right Ventricle Normal right ventricular cavity size and systolic function. Atria The left atrium is mildly dilated. The right atrium is normal in size. Aortic Valve There is a normal trileaflet aortic valve. There is no aortic valve stenosis. There is no aortic valve regurgitation. Mitral Valve There is mild mitral annular calcification. There is trace mitral valve regurgitation. There is no mitral valve stenosis. Pulmonic Valve The pulmonic valve is likely normal. Tricuspid Valve There is trace tricuspid valve regurgitation. There is no evidence of pulmonary hypertension. Great Vessels The asc aorta is normal in size. Small plaque is seen in the sino tubular ridge. Venous The inferior vena cava is mildly dilated and collapses greater than 50% with inspiration. Pericardium/Pleural There is no evidence of pericardial effusion. Prior Study Comparison Changes noted compared to prior study dated: 07/29/2022. Improved RVSP. Recommendations, Care & Conclusions No obvious valvular pathology seen on this study. Measurements 2D Linear Measurements IVSd: 0.84 0.6-0.9/0.6-1.0 cm LVIDd: 4.60 3.9-5.3/4.2-5.9 cm LVIDd Index: 2.50 2.4-3.2/2.2-3.1 cm/m2 LVIDs: 3.50 2.0-3.6 cm LVPWd: 1.16 0.7-1.1 cm LA Diam: 3.90 2.7-3.8/3.0-4.0 cm LAIDs Index: 2.12 1.5-2.3 cm/m2 LV Mass: 198.31 67-162/88-224 g LV Mass Index: 107.78 43-95/49-115 g/m2 LVOT Diam: 2.20 3.0+(-)1.3 cm 2D Systolic Function EF 4C: 51.30 >55% EF 2C: 56.90 >55% EF BiP: 54.60 >55% Mitral Valve MV Pk E: 1.44 MV PK A: 0.84 MV Decel Time: 230.00 E/A: 1.70 E'Lateral: 6.92 E'Medial: 5.26 E/E' Med: 27.40 E/E' Lat: 20.80 PHT: 67.00 MVA PHT: 3.28 Decel [place]: 6.28 Aortic Valve AoV Pk Son: 1.27 AoV Mn Son: 0.93 AoV VTI: 0.32 AoV Pk Grad: 6.00 Aov Mn Grad: 4.00 GERSON Cont.VTI: 2.69 LVOT LVOT Pk Son: 1.01 LVOT Mn Son: 0.68 LVOT VTI: 0.23 LVOT Pk Grad: 4.00 LVOT Mn Grad: 2.00 LVOT Diam: 2.20 LVOT Area: 3.80 Diastolic Function MV Pk E: 1.44 MV Pk A: 0.84 E/A: 1.70 E'Medial: 5.26 E/E' Med: 27.40 E' Laterial: 6.92 E/E' Lat: 20.80 Right Ventricle TAPSE (mm): 21.70 TVS' Son: 9.14 Tricuspid Valve TR Pk Son: 2.22 TR Pk Grad: 20.00 RA Press: 8.00 RVSP: 28.00 Great Vessels Aorta Sinus of Valsalva: 3.20 2.0-3.5 cm Ao Asc: 3.00 2.1-3.4 cm Pulmonary Valve PV Pk Son: 0.81 Peak PV Grad: 3.00 Updated in Other Vendor System with Status of Final Josemanuel Wheeler MD electronically signed on 01/31/2023 2:40:21 PM with status of Final
== END ==
LOC: HO.CARD 13:13
PROVIDERS: PCP Pediatrics; Visit Provider Internal Medicine
DX: I27.20 Pulmonary hypertension, unspecified (principal)
CPT/HCPCS: 93306; 93356

== ENCOUNTER 2023-02-11 15:24 | Outpatient (REF) | payer OTHER, SELFPAY ==
[2023-02-11 16:50] LABS: MANUAL DIFF FLAG NO
[2023-02-11 18:49] LABS: Basophils Percent Auto 0.8 % (0-2); Eosinophils Absolute Auto 0.5 X10*3/uL (0.0-0.4); Eosinophils Percent Auto 10.4 % (0-4); Hematocrit 35.5 % (37.0-47.0); Imm Gran Abs Auto 0.02 X10*3/uL (0.00-0.03); Imm Gran Pct Auto 0.4 % (0.0-0.4); Lymphocytes Absolute Auto 0.9 X10*3/uL (1.2-4.9); Lymphocytes Percent Auto 18.3 % (20-40); Mean Corpuscular Hemoglobin 29.1 pg (27.0-33.0); Mean Corpuscular Volume 93.9 fL (80.0-98.0); Mean Platelet Volume 11.3 fL (9.4-12.3); Monocytes Absolute Auto 0.4 X10*3/uL (0.1-1.2); Monocytes Percent Auto 7.7 % (2-11); Neutrophils Absolute Auto 3.1 x10*3/uL (2.0-8.3); Neutrophils Percent Auto 62.4 % (45-73); Platelet Count 244 X10*3/uL (160-400); Red Blood Count 3.78 X10*6/uL (4.20-5.50); Red Cell Distribution Width 14.8 % (11.0-16.0); White Blood Count 4.9 X10*3/uL (4.8-10.8)
[2023-02-11 19:07] LABS: Alanine Aminotransferase 8 U/L (0-31); Alkaline Phosphatase 30 U/L (39-117); Anion Gap 15 (12-20); Aspartate Amino Transferase 13 U/L (5-31); Bilirubin Total 0.4 mg/dL (0.0-1.0); Blood Urea Nitrogen 36 mg/dL (9-16); Carbon Dioxide 26 mmol/L (22-29); Chloride 104 mmol/L (96-108); Estimated Glomerular Filt Rate 29; Glucose Random 129 mg/dL (60-115); Potassium 4.2 mmol/L (3.3-5.1); Sodium 141 mmol/L (135-145); Total Protein 6.8 g/dL (6.5-8.0)
[2023-02-11 19:09] LABS: B Type Natriuretic Peptide 524 pg/mL (<100)
== END 2023-02-11 15:25 | disposition home or self-care (01) ==
LOC: HO.LAB 15:24
PROVIDERS: PCP Pediatrics; Referring Provider Pediatrics; Visit Provider Nurse Practitioner Family
DX: I50.32 Chronic diastolic (congestive) heart failure (principal); I27.20 Pulmonary hypertension, unspecified; I48.0 Paroxysmal atrial fibrillation; I42.9 Cardiomyopathy, unspecified; G47.33 Obstructive sleep apnea (adult) (pediatric); J45.909 Unspecified asthma, uncomplicated; R07.89 Other chest pain; E11.9 Type 2 diabetes mellitus without complications; Z79.84 Long term (current) use of oral hypoglycemic drugs; Z79.899 Other long term (current) drug therapy
CPT/HCPCS: 36415; 80053; 83880; 85025; 93005; 99212

== ENCOUNTER 2023-03-21 15:54 | Outpatient (REF) | payer OTHER, SELFPAY ==
[2023-03-21 16:50] LABS: Anion Gap 16 (12-20); Blood Urea Nitrogen 35 mg/dL (9-16); Calcium 9.6 mg/dL (8.4-10.2); Carbon Dioxide 22 mmol/L (22-29); Chloride 108 mmol/L (96-108); Estimated Glomerular Filt Rate 28; Glucose Random 179 mg/dL (60-115); Potassium 4.4 mmol/L (3.3-5.1); Sodium 142 mmol/L (135-145)
== END 2023-03-21 15:55 | disposition home or self-care (01) ==
LOC: HO.LAB 15:54
PROVIDERS: Visit Provider Nurse Practitioner Family
DX: R06.02 Shortness of breath (principal)
CPT/HCPCS: 36415; 80048

== ENCOUNTER 2023-04-01 15:02 | Outpatient (AMB) | payer OTHER, SELFPAY ==
--- NOTE | 2023-04-01 15:10 | A.OFFVIS_ITS ---
Intake Vital Signs 04/01/23 15:12 Height 5 ft 2 in Weight 176 lb 5.917 oz BMI 32.3 BP 160/60 H Blood Pressure Location Lt brachial Position Sitting Pulse 79 Pulse Oximetry (%) 96 Intake Visit Reasons: 6-8 WEEK FUP PER DC Intake Note: 6- 8 week f/u per dc Box Blank Machine Feeder Required: No Information Interpreted: clinical only Grain Mill Products Inspector: Grain Mill Products Inspector Present Accompanied by: Grand Child Allergies faviola [FAVIOLA] Adverse Reaction (Intermediate, Verified 04/01/23 15:20) NAUSEA & VOMITING Penicillins [PENICILLINS] Adverse Reaction (Unknown, Verified 04/01/23 15:20) NAUSEA & VOMITING [facility] Allergy (Unknown, Uncoded 02/11/23 15:40) NAUSEA & VOMITING SARDINES Adverse Reaction (Intermediate, Uncoded 02/11/23 15:40) NAUSEA & VOMITING Medication List - Last Reconciled 04/01/23 by Rebeca Ortiz CONSUMER LOAN OFFICER-C acetaminophen-codeine 300-30 mg 1 tab PO DAILY PRN albuterol sulfate 90 mcg/actuation (Ventolin HFA) 2 puffs inhalation Q4H PRN albuterol sulfate 2.5 mg (3 mL) inhalation Q4H PRN alendronate 70 mg PO QWEEK amlodipine 10 mg PO DAILY apixaban (Eliquis) 5 mg PO BID atorvastatin 40 mg PO BEDTIME candesartan 16 mg PO DAILY cholecalciferol (vitamin D3) 50 mcg PO DAILY dexlansoprazole (Dexilant) 60 mg PO DAILY docusate sodium 100 mg PO BID PRN duloxetine 60 mg PO DAILY ferrous sulfate 325 mg PO TID fluticasone propionate 220 mcg/actuation (Flovent HFA) 2 puffs inhalation BID jwlbhovpxxi-ouqhjcbqi-aqnlwkhy 100-62.5-25 mcg (Trelegy Ellipta) 1 inh inhalation DAILY 30 days furosemide 40 mg PO DAILY furosemide (Lasix) 20 mg PO .PRN gabapentin 100 mg PO DAILY glipizide 10 mg PO BID hydralazine 50 mg PO TID 90 days inhalational spacing device (Vortex Holding Chamber) As directed lidocaine-prilocaine 2.5-2.5 % 2.5 grams topical DAILY metformin 1,000 mg PO BID metoprolol tartrate 50 mg PO BID omega-3 fatty acids-fish oil 340-1,000 mg 1 cap PO BID pantoprazole 40 mg PO DAILY prednisone 20 mg PO BID sildenafil (pulm.hypertension) 20 mg PO TID 30 days simethicone 180 mg PO TID PRN HPI 6-8 WEEK FUP PER NC HPI Details Belen is a 77-year-old female past medical history diabetes, pulmonary hypertension, paroxysmal AFib, cardiomyopathy, diastolic heart failure, obstructive sleep apnea who presents for follow-up. Today she presents with her granddaughter who assists with Pakistani Interpretation at their request. Patient is sitting in a wheelchair. She reports chronic issues with daily pain mostly in her back, upper chest and legs. This causes her to breathe shallow. She has history of fibromyalgia and her body as well as these areas are very tender to touch. She is very sedentary at home. No clear PND, orthopnea. She has trace lower leg edema at present. No report of heart palpitations, presyncope, syncope, falls. Taking all meds as directed. Periodic home blood pressure checks obtained. Hydralazine mid day dose is taken if blood pressure is elevated. [facility] Medical History Asthma Cardiomyopathy Essential hypertension ANKIT (obstructive sleep apnea) PAF (paroxysmal atrial fibrillation) Pulmonary hypertension Type 2 diabetes mellitus with unspecified complications Vasovagal syncope Surgical History No pertinent past surgical history Family History Father No problems noted. Mother No problems noted. Social History Alcohol intake: never Patient Tobacco Use Status: Never used Tobacco Review of Systems Const Details: constant pain, currently back, chest, legs Reports body aches and Reports fatigue Resp Details: pain with taking a deep inspiration Denies chest congestion and Denies cough GI Reports belching Musc Reports as per HPI and Reports back pain Psych Details: seems appropriate, granddaughter reports dementia Endo Reports fatigue Physical Exam Vital Signs: Last Vital Signs Pulse 79 04/01/23 15:12 BP 160/60 H 04/01/23 15:12 Pulse Ox 96 04/01/23 15:12 BMI result Body Mass Index 32.3 Const Other: sitting in wheelchair moaning, tenderness to palpation of most areas on body, worse with back, chest, legs General: no acute distress Orientation/consciousness: patient oriented x3 Neck Neck: Yes normal visual inspection Resp Effort & Inspection: normal respiratory effort Auscultation: clear to auscultation bilaterally, no rales, no rhonchi and no wheezes Cardio Jugular venous distension: no JVD Rate: regular rate Rhythm: regular rhythm Heart sounds: S1 normal heart sound present, S2 normal heart sound present, no murmurs and no rubs GI Inspection: Yes normal to inspection Neuro General: patient oriented x3 Extrem General: Yes normal to inspection Psych Appearance: grossly normal Mental Status: mental status grossly normal Speech and movement: Normal speech and movement present Assessment & Plan Assessment & Plan (1) Chronic diastolic (congestive) heart failure: Code(s): I50.32 - Chronic diastolic (congestive) heart failure Plan: History of diastolic heart failure. Last echocardiogram done 01/29/2023 showed normal EF, 55% with grade 2 diastolic dysfunction, basal inferior hypokinetic. Nuclear stress test done 03/13/2022 showed normal myocardial perfusion imaging. today she is reporting chronic pain and soreness with deep inspiration. Because of this she has been breathing shallow. She has a pulmonary evaluation tomorrow. Her back, chest and legs are very tender to palpation. This symptom could be related to her underlying fibromyalgia. No wheezes or rales noted on examination, no evidence of fluid overload noted. She will continue on current Lasix. signs and symptoms of heart failure reviewed with her and granddaughter. Granddaughter reports patient has increasing dementia. Card f/u in 4 mo sooner if needed (2) Shortness of breath: Code(s): R06.02 - Shortness of breath (3) PAF (paroxysmal atrial fibrillation): Code(s): I48.0 - Paroxysmal atrial fibrillation Plan: History of paroxysmal atrial fibrillation. No reports of heart palpitations in recent months. EKG done last visit showing normal sinus rhythm, rate 73. pulse is regular on examination today without concern for AFib. She is on metoprolol for heart rate control. She is on Eliquis for anticoagulation. labs done 03/21/2023 shows crit 3. For her age and weight the dose of 5 mg b.i.d. is appropriate. she is reported to have dementia. She is not ambulating independently at home. She is mostly sedentary and no falls reported. (4) Pulmonary hypertension: Code(s): I27.20 - Pulmonary hypertension, unspecified Plan: RVSP improved on last echo (5) ANKIT (obstructive sleep apnea): Code(s): G47.33 - Obstructive sleep apnea (adult) (pediatric) Plan: Moderate to severe obstructive sleep apnea. Following with Dr. Johnson (6) Essential hypertension: Code(s): I10 - Essential (primary) hypertension Plan: Blood pressure elevated today. granddaughter states she is due for her mid day dose of hydralazine. She does have significant discomfort noted with any movement in her wheelchair. Pain is likely contributing to her elevated blood pressure readings. Meds reviewed but no changes made. (7) Chest discomfort: Code(s): R07.89 - Other chest pain Plan: Very Atypical sounding chest discomfort, worse with palpation, with frequent belching. Echocardiogram does mention basal inferior hypokinesis. Nuclear stress test last year was normal. In the absence of anginal sounding symptoms no further cardiac testing will be performed at this time. Coding Level of Care Code Est Pt Level 4 (81170) Diagnoses Chronic diastolic (congestive) heart failure I50.32 Shortness of breath R06.02 PAF (paroxysmal atrial fibrillation) I48.0 Pulmonary hypertension I27.20 ANKIT (obstructive sleep apnea) G47.33 Essential hypertension I10 Chest discomfort R07.89 Time Spent (min) 28 Comment chart review, documentation, interview, assessment
[2023-04-01 15:12] VITALS: BP 160/60; PULSE 79; O2SAT 96; BMI 32.3
== END 2023-04-01 15:52 | disposition home or self-care (01) ==
PROVIDERS: Visit Provider Nurse Practitioner Family
DX: I50.32 Chronic diastolic (congestive) heart failure (principal); R06.02 Shortness of breath; I48.0 Paroxysmal atrial fibrillation; I27.20 Pulmonary hypertension, unspecified; G47.33 Obstructive sleep apnea (adult) (pediatric); I10 Essential (primary) hypertension; R07.89 Other chest pain
CPT/HCPCS: 99214

== ENCOUNTER → 2023-04-01 15:02 | Outpatient (BNVA) | payer OTHER, SELFPAY | PROVIDERS: Visit Provider Nurse Practitioner Family | DX: I11.0 Hypertensive heart disease with heart failure (principal); I50.32 Chronic diastolic (congestive) heart failure; I48.0 Paroxysmal atrial fibrillation; I27.20 Pulmonary hypertension, unspecified; R06.02 Shortness of breath; R07.89 Other chest pain; G47.33 Obstructive sleep apnea (adult) (pediatric) | CPT/HCPCS: 99212 ==

== ENCOUNTER 2023-04-02 10:45 | Outpatient (AMB) | payer OTHER, SELFPAY ==
--- NOTE | 2023-04-02 10:55 | A.OFFVIS_ITS ---
Intake Vital Signs 04/02/23 10:56 Height 5 ft 1 in Weight 180 lb BMI 34.0 Pulse 76 Pulse Source Pulse Oximeter Pulse Oximetry (%) 96 Oxygen Delivery Method Room Air Intake Visit Reasons: Difficulty Breathing Selvage Machine Operator Required: No Allergies faviola [FAVIOLA] Adverse Reaction (Intermediate, Verified 04/02/23 10:56) NAUSEA & VOMITING Penicillins [PENICILLINS] Adverse Reaction (Unknown, Verified 04/02/23 10:56) NAUSEA & VOMITING [facility] Allergy (Unknown, Uncoded 04/02/23 10:56) NAUSEA & VOMITING SARDINES Adverse Reaction (Intermediate, Uncoded 04/02/23 10:56) NAUSEA & VOMITING HPI HPI Comments History of Present Illness Details The patient is a 77-year-old woman with a known history of cardiomyopathy and diastolic dysfunction. She continues to have significant shortness of breath. Moderate to severe. Today she did come in with her daughter but we did have to get her wheelchair to go back to the car because her shortness of breath. The patient also feels very fatigued. She has daytime drowsiness and sleeps throughout the day. She typically sleeps on the sofa because she feels she is more comfortable when she is has not choked up so much. Her [place] score is elevated 16/24. The patient has not had a sleep study. Will have to request a home sleep study at this time. In the meantime the patient had an echocardiogram and I did review the family. It appears that she has a severely dilated right ventricle and severe pulmonary hypertension. In part this is likely due to her diastolic dysfunction. However, additional testing is warranted. Will go ahead and request blood work in addition to a V/Q scan to rule out thromboembolic disease and also a sleep study. the patient does take Eliquis for anticoagulation. However, chronic thromboembolic disease is still in differential. 08/19/2022 the visit. The patient overall is doing well overall. She still having dyspnea on exertion. Moderate severity. She recently was started on sildenafil for pulmonary hypertension. She continues to have daytime drowsiness with an elevated [place] score of 12/24. She did have a sleep study done which we requested. Demonstrates that her AHI is elevated at 21 and oxygen did desaturate down to about 78% the lowest. Therefore the patient has moderate to severe sleep apnea. She has other cardiovascular risk factors. At this point she needs to start PAP therapy as soon as possible. I did talk to the patient also her daughter about using CPAP at nighttime. Her daughter also uses CPAP sure she will be able to help her mother get use to get her oriented on the therapy. The patient will come back to see me in 3 months and we will have her bring the machine in to downloaded into adjusted accordingly. 04/02/2023 the patient is here for a pulmonary follow-up visit. The patient has been complaining of increasing dyspnea on exertion. She has been getting more short of breath. She did respond well to the sildenafil when she continues use it. She also has been using her CPAP. The CPAP therapy continues to be affecting beneficial. She does have a hard time trying to get used to it but she is trying to use it at least 4 hours a night. She understand that is helping heart and her lungs overall. In the meantime the patient did have a brief walking oximetry. The patient maintain a pulse ox of 95% although she was visibly dyspneic with a dyspnea score of 7/10. she does have diminished breath sounds. I have her get a chest x-ray at this time. I will call her with the results. [facility] Medical History Asthma Cardiomyopathy Essential hypertension ANKIT (obstructive sleep apnea) PAF (paroxysmal atrial fibrillation) Pulmonary hypertension Type 2 diabetes mellitus with unspecified complications Vasovagal syncope Surgical History No pertinent past surgical history Family History Father No problems noted. Mother No problems noted. Social History Alcohol intake: never Patient Tobacco Use Status: Never used Tobacco Review of Systems Const Denies chills, Denies fatigue, Denies fever(s), Denies frequent falls and Denies weakness ENT Denies dizziness Card Denies chest pain, Denies leg edema, Denies lightheadedness, Denies palpitations, Reports dyspnea on exertion, Reports orthopnea and Denies other (Loss of consciousness) Resp Denies cough and Reports dyspnea on exertion GI Denies hematochezia and Denies change in bowel habits Musc Denies abnormal gait, Denies muscle weakness, Denies numbness, Denies radiating pain into limb and Denies tingling Neuro Denies abnormal gait, Denies dizziness, Denies frequent falls, Denies numbness, Denies tingling and Denies weakness Endo Denies fatigue and Denies palpitations Physical Exam Vital Signs: Last Vital Signs Pulse 76 04/02/23 10:56 Pulse Ox 96 04/02/23 10:56 Oxygen Delivery Method Room Air 04/02/23 10:56 BMI result Body Mass Index 34.0 Const General: comfortable and tired appearing Orientation/consciousness: patient oriented x3 HEENT Other: Unremarkable Head: Yes normal to inspection Eyes General: appearance normal, both eyes and all related structures Neck Neck: Yes normal visual inspection Chest Chest palpation & inspection: normal inspection of the chest Resp Auscultation: no crackles, no wheezes and diminished lung sounds Cardio Jugular venous distension: no JVD Palpation: normal PMI Heart sounds: S1 normal heart sound present, S2 normal heart sound present, no gallops, no murmurs and no rubs GI Palpation (GI): Soft to palpation Back/Spine/Pelvis Other: unremarkable Skin General skin exam: no rashes or lesions noted Neuro General: patient oriented x3 Extrem General: Yes no clubbing, cyanosis or edema Psych Mental Status: mental status grossly normal Assessment & Plan Assessment & Plan (1) Pulmonary hypertension: Code(s): I27.20 - Pulmonary hypertension, unspecified (2) ANKIT (obstructive sleep apnea): Code(s): G47.33 - Obstructive sleep apnea (adult) (pediatric) (3) Asthma: Code(s): J45.909 - Unspecified asthma, uncomplicated (4) Shortness of breath: Code(s): R06.02 - Shortness of breath Plan continue APAP continue Sildanefil CXR today continue diuresis as tolerated continue Trelegy 1 inhalation daily follow-up in 3-4 weeks Orders: Orders XR chest 2V Today R06.02 - Shortness of breath, R07.89 - Other chest pain Coding Level of Care Code Est Pt Level 4 (28486) Diagnoses Pulmonary hypertension I27.20 ANKIT (obstructive sleep apnea) G47.33 Asthma J45.909 Shortness of breath R06.02 Time Spent (min) 19
[2023-04-02 10:56] VITALS: PULSE 76; O2SAT 96; BMI 34.0
== END 2023-04-02 11:14 | disposition home or self-care (01) ==
PROVIDERS: PCP Pediatrics; Visit Provider Hospitalist
DX: I27.20 Pulmonary hypertension, unspecified (principal); G47.33 Obstructive sleep apnea (adult) (pediatric); J45.909 Unspecified asthma, uncomplicated; R06.02 Shortness of breath
CPT/HCPCS: 99214

== ENCOUNTER 2023-04-02 10:45 | Outpatient (REF) | payer OTHER, SELFPAY ==
--- NOTE | ~2023-04-02 | XR_ITS ---
EXAMINATION: XR CHEST CLINICAL INFORMATION: Shortness of breath COMPARISON: None available. TECHNIQUE: 2 views of the chest were obtained. FINDINGS: Cardiac silhouette is prominent. Aortic calcifications are seen. Vascularity is prominent. No consolidations or effusions. Degenerative changes. XR/XR chest 2V IMPRESSION: Mild vascular congestion.
== END 2023-04-02 10:46 | disposition home or self-care (01) ==
LOC: HO.HMGCX 10:45
PROVIDERS: PCP Pediatrics; Visit Provider Hospitalist
DX: R07.89 Other chest pain (principal); I27.20 Pulmonary hypertension, unspecified; R06.02 Shortness of breath; J45.909 Unspecified asthma, uncomplicated
CPT/HCPCS: 71046; 99212

== ENCOUNTER 2023-04-21 14:53 | Outpatient (REF) | payer OTHER, SELFPAY ==
[2023-04-21 16:10] LABS: MANUAL DIFF FLAG NO
[2023-04-21 16:19] LABS: Basophils Absolute Auto 0.1 X10*3/uL (0.0-0.2); Basophils Percent Auto 0.9 % (0-2); Eosinophils Absolute Auto 0.6 X10*3/uL (0.0-0.4); Eosinophils Percent Auto 10.8 % (0-4); Hematocrit 36.4 % (37.0-47.0); Hemoglobin 11.1 g/dl (12.0-16.0); Imm Gran Abs Auto 0.02 X10*3/uL (0.00-0.03); Imm Gran Pct Auto 0.4 % (0.0-0.4); Lymphocytes Absolute Auto 0.8 X10*3/uL (1.2-4.9); Lymphocytes Percent Auto 14.1 % (20-40); Mean Corpuscular HGB Conc 30.5 g/dl (31.0-35.0); Mean Corpuscular Hemoglobin 28.6 pg (27.0-33.0); Mean Corpuscular Volume 93.8 fL (80.0-98.0); Mean Platelet Volume 11.5 fL (9.4-12.3); Monocytes Absolute Auto 0.4 X10*3/uL (0.1-1.2); Monocytes Percent Auto 8.1 % (2-11); Neutrophils Absolute Auto 3.6 x10*3/uL (2.0-8.3); Neutrophils Percent Auto 65.7 % (45-73); Platelet Count 275 X10*3/uL (160-400); Red Blood Count 3.88 X10*6/uL (4.20-5.50); Red Cell Distribution Width 15.9 % (11.0-16.0); White Blood Count 5.5 X10*3/uL (4.8-10.8)
[2023-04-21 16:45] LABS: B Type Natriuretic Peptide 224 pg/mL (<100)
[2023-04-21 16:47] LABS: Anion Gap 21 (12-20); Blood Urea Nitrogen 43 mg/dL (9-16); Calcium 9.3 mg/dL (8.4-10.2); Carbon Dioxide 24 mmol/L (22-29); Chloride 104 mmol/L (96-108); Estimated Glomerular Filt Rate 22; Glucose Random 164 mg/dL (60-115); Magnesium 1.8 mg/dL (1.6-2.6); Potassium 4.3 mmol/L (3.3-5.1); Sodium 145 mmol/L (135-145)
== END 2023-04-21 14:54 | disposition home or self-care (01) ==
LOC: HO.HMGCLDS 14:53
PROVIDERS: PCP Pediatrics; Visit Provider Hospitalist
DX: I50.32 Chronic diastolic (congestive) heart failure (principal)
CPT/HCPCS: 36415; 80048; 83735; 83880; 85025

== ENCOUNTER 2023-04-30 12:00 | Outpatient (REF) | payer OTHER, SELFPAY ==
[2023-04-30 13:05] LABS: Anion Gap 16 (12-20); Blood Urea Nitrogen 42 mg/dL (9-16); Calcium 9.1 mg/dL (8.4-10.2); Carbon Dioxide 26 mmol/L (22-29); Chloride 105 mmol/L (96-108); Estimated Glomerular Filt Rate 22; Glucose Random 140 mg/dL (60-115); Potassium 3.9 mmol/L (3.3-5.1); Sodium 143 mmol/L (135-145)
== END 2023-04-30 12:01 | disposition home or self-care (01) ==
LOC: HO.LAB 12:00
PROVIDERS: Visit Provider Hospitalist
DX: R06.02 Shortness of breath (principal)
CPT/HCPCS: 36415; 80048

== ENCOUNTER 2023-05-09 14:23 | Outpatient (AMB) | payer OTHER, SELFPAY ==
[2023-05-09 14:27] VITALS: PULSE 75; O2SAT 94; BMI 31.2
--- NOTE | 2023-05-09 14:27 | A.OFFVIS_ITS ---
Intake Vital Signs 05/09/23 14:27 Height 5 ft 1 in Weight 165 lb BMI 31.2 Pulse 75 Pulse Source Pulse Oximeter Pulse Oximetry (%) 94 Oxygen Delivery Method Room Air Intake Visit Reasons: ankit Predictive Maintenance Specialist Required: No Allergies faviola [FAVIOLA] Adverse Reaction (Intermediate, Verified 05/09/23 14:28) NAUSEA & VOMITING Penicillins [PENICILLINS] Adverse Reaction (Unknown, Verified 05/09/23 14:28) NAUSEA & VOMITING [facility] Allergy (Unknown, Uncoded 05/09/23 14:28) NAUSEA & VOMITING SARDINES Adverse Reaction (Intermediate, Uncoded 05/09/23 14:28) NAUSEA & VOMITING HPI HPI Comments History of Present Illness Details The patient is a 77-year-old woman with a known history of cardiomyop athy and diastolic dysfunction. She continues to have significant shortness of breath. Moderate to severe. Today she did come in with her daughter but we did have to get her wheelchair to go back to the car because her shortness of breath. The patient also feels very fatigued. She has daytime drowsiness and sleeps throughout the day. She typically sleeps on the sofa because she feels she is more comfortable when she is has not choked up so much. Her [place] score is elevated 16/24. The patient has not had a sleep study. Will have to request a home sleep study at this time. In the meantime the patient had an echocardiogram and I did review the family. It appears that she has a severely dilated right ventricle and severe pulmonary hypertension. In part this is likely due to her diastolic dysfunction. However, additional testing is warranted. Will go ahead and request blood work in addition to a V/Q scan to rule out thromboembolic disease and also a sleep study. the patient does take Eliquis for anticoagulation. However, chronic thromboembolic disease is still in differential. 08/19/2022 the visit. The patient overall is doing well overall. She still having dyspnea on exertion. Moderate severity. She recently was started on sildenafil for pulmonary hypertension. She continues to have daytime drowsiness with an elevated [place] score of 12/24. She did have a sleep study done which we requested. Demonstrates that her AHI is elevated at 21 and oxygen did desaturate down to about 78% the lowest. Therefore the patient has moderate to severe sleep apnea. She has other cardiovascular risk factors. At this point she needs to start PAP therapy as soon as possible. I did talk to the patient also her daughter about using CPAP at nighttime. Her daughter also uses CPAP sure she will be able to help her mother get use to get her oriented on the therapy. The patient will come back to see me in 3 months and we will have her bring the machine in to downloaded into adjusted accordingly. 04/02/2023 the patient is here for a pulmonary follow-up visit. The patient has been complaining of increasing dyspnea on exertion. She has been getting more short of breath. She did respond well to the sildenafil when she continues use it. She also has been using her CPAP. The CPAP therapy continues to be affecting beneficial. She does have a hard time trying to get used to it but she is trying to use it at least 4 hours a night. She understand that is helping heart and her lungs overall. In the meantime the patient did have a brief walking oximetry. The patient maintain a pulse ox of 95% although she was visibly dyspneic with a dyspnea score of 7/10. she does have diminished breath sounds. I have her get a chest x-ray at this time. I will call her with the results. 05/09/2023 the patient is here for pulmonary follow-up visit. The patient is feeling better. She did respond well to the additional diuresis. Although her renal function is slightly worse. I did send her laboratory data out to her primary care doctor. she has started to get lower extremity edema again. She started to have worsening shortness of breath. I did review her last chest x- ray demonstrating mild pulmonary vascular congestion. [facility] Medical History Asthma Cardiomyopathy Essential hypertension ANKIT (obstructive sleep apnea) PAF (paroxysmal atrial fibrillation) Pulmonary hypertension Type 2 diabetes mellitus with unspecified complications Vasovagal syncope Surgical History No pertinent past surgical history Family History Father No problems noted. Mother No problems noted. Social History Alcohol intake: never Patient Tobacco Use Status: Never used Tobacco Review of Systems Const Denies chills, Denies fatigue, Denies fever(s), Denies frequent falls and Denies weakness ENT Denies dizziness Card Denies chest pain, Denies leg edema, Denies lightheadedness, Denies palpitations, Reports dyspnea on exertion, Reports orthopnea and Denies other (Loss of consciousness) Resp Denies cough and Reports dyspnea on exertion GI Denies hematochezia and Denies change in bowel habits Musc Denies abnormal gait, Denies muscle weakness, Denies numbness, Denies radiating pain into limb and Denies tingling Neuro Denies abnormal gait, Denies dizziness, Denies frequent falls, Denies numbness, Denies tingling and Denies weakness Endo Denies fatigue and Denies palpitations Physical Exam Vital Signs: Last Vital Signs Pulse 75 05/09/23 14:27 Pulse Ox 94 05/09/23 14:27 Oxygen Delivery Method Room Air 05/09/23 14:27 BMI result Body Mass Index 31.2 Const General: comfortable and tired appearing Orientation/consciousness: patient oriented x3 HEENT Other: Unremarkable Head: Yes normal to inspection Eyes General: appearance normal, both eyes and all related structures Neck Neck: Yes normal visual inspection Chest Chest palpation & inspection: normal inspection of the chest Resp Auscultation: no crackles, no wheezes and diminished lung sounds Cardio Jugular venous distension: no JVD Palpation: normal PMI Heart sounds: S1 normal heart sound present, S2 normal heart sound present, no gallops, no murmurs and no rubs GI Palpation (GI): Soft to palpation Back/Spine/Pelvis Other: unremarkable Skin General skin exam: no rashes or lesions noted Neuro General: patient oriented x3 Extrem General: Yes no clubbing, cyanosis or edema Psych Mental Status: mental status grossly normal Results Reviewed Results Reviewed: [facility] [address] [place] [address] XRay Report Signed Patient: Belen Lemus MR#: [id number] : 1945 Acct:[id number] Age/Sex: 77 / F ADM Date: 04/02/23 Loc: HO.HMGCX Attending Dr: Alexandre Johnson MD Ordering Physician: Alexandre Johnson MD Date of Service: 04/02/23 Procedure(s): XR chest 2V Accession Number(s): [id number] cc: Alexandre Johnson MD~ EXAMINATION: XR CHEST CLINICAL INFORMATION: Shortness of breath COMPARISON: None available. TECHNIQUE: 2 views of the chest were obtained. FINDINGS: Cardiac silhouette is prominent. Aortic calcifications are seen. Vascularity is prominent. No consolidations or effusions. Degenerative changes. XR/XR chest 2V IMPRESSION: Mild vascular congestion. Dictated By: Angela Rizzo MD Signed By: <Electronically signed by Angela Rizzo MD in OV> 04/02/23 1423 DD/ 1321 TD/TT:? 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
== END 2023-05-09 14:56 | disposition home or self-care (01) ==
PROVIDERS: PCP Pediatrics; Visit Provider Hospitalist
DX: I27.20 Pulmonary hypertension, unspecified (principal); G47.33 Obstructive sleep apnea (adult) (pediatric); J45.909 Unspecified asthma, uncomplicated; R06.02 Shortness of breath
CPT/HCPCS: 99214

== ENCOUNTER → 2023-05-09 14:23 | Outpatient (BNVA) | payer OTHER, SELFPAY | PROVIDERS: PCP Pediatrics; Visit Provider Hospitalist | DX: R06.02 Shortness of breath (principal); J45.909 Unspecified asthma, uncomplicated; G47.33 Obstructive sleep apnea (adult) (pediatric); I27.20 Pulmonary hypertension, unspecified; R60.0 Localized edema | CPT/HCPCS: 99212 ==

== ENCOUNTER 2023-08-04 14:14 | Emergency (ER) | payer OTHER, SELFPAY ==
--- NOTE | ~2023-08-04 | CT_ITS ---
EXAMINATION: CT ABDOMEN AND PELVIS WITHOUT CONTRAST CLINICAL INFORMATION: Epigastric pain with question of pancreatitis or gallstones COMPARISON: Abdominal ultrasound 05/04/2019, MRI abdomen 02/26/2018 TECHNIQUE: Multidetector volumetric imaging was performed from the superior aspect of the liver through the pubic symphysis. Sagittal and coronal reformatted images were obtained on the technologist's workstation. This CT examination was performed using dose optimization techniques as appropriate, variously including the following: *Automated exposure control *Adjustment of mA and/or kV according to patient size (this includes techniques or standardized protocols for targeted exams where dose is matched to indication/reason for exam; i.e. extremities or head) *Use of iterative reconstruction technique DLP: 829 mGy-cm FINDINGS: LUNG BASES: The visualized lung bases are unremarkable. LIVER, GALLBLADDER, AND BILIARY TREE: The liver is normal in size, shape, and attenuation. No focal hepatic lesion or biliary ductal dilatation is present. The gallbladder is unremarkable with no evidence of radiopaque gallstones, gallbladder wall thickening, or obvious pericholecystic inflammatory changes. PANCREAS: Unremarkable. SPLEEN: Unremarkable. ADRENAL GLANDS: Unremarkable. KIDNEYS AND URETERS: The kidneys are normal in size, shape, and attenuation. No hydronephrosis, hydroureter, or calculi seen. No perinephric stranding. BLADDER: Unremarkable. GASTROINTESTINAL TRACT: The small and large bowel are unremarkable. The appendix is unremarkable. ABDOMINAL WALL: No significant hernia is appreciated. LYMPH NODES: No retroperitoneal lymphadenopathy. VASCULAR: Calcific plaque present in the aorta and iliofemoral vessels without aneurysm. PELVIC VISCERA: An anteverted uterus is present. There is a 3.4 x 2.7 x 2.8 cm cyst involving the left ovary which also contains some punctate calcifications. The right ovary is unremarkable. No free pelvic fluid is seen. OSSEOUS STRUCTURES: Degenerative changes are present spine most marked at L3-L4. No bony destructive lesions. CT/CT abdomen pelvis wo IV con IMPRESSION: 1. A cause for the patient's epigastric pain has not been found. 2. No evidence of pancreatitis. 3. Left ovarian 3.4 cm cyst. Given the patient's postmenopausal state, the recommendation for a simple appearing cyst between 3.1- 9.9 cm is a follow-up ultrasound in 6-12 months. 4. Degenerative changes in the spine. Fleischner guidelines were followed.
--- NOTE | 2023-08-04 14:16 | ED.GENADULT ---
HPI - General Adult General Chief complaint: Nausea/Vomiting/Diarrhea Stated complaint: Severe acid reflux Time Seen by Provider: 08/04/23 16:36 Source: patient Mode of arrival: ambulatory Limitations: no limitations History of Present Illness HPI narrative: 77 yold female with pmh of CKD, DM, HTN, and GERD presents to the ED for acid burning sensation in epigastric area raditing to the esophagus for 2 days withi nausea. patient states no lower abdominal pain, fever, chills, shortness of breath, chest pain, hematuria, or dysuria. Related Data Home Medications Medication Instructions Recorded Confirmed acetaminophen 300 mg-codeine 30 mg 1 tab PO DAILY PRN Pain 11/27/20 08/05/23 tablet alendronate 70 mg tablet 70 mg PO QWEEK 11/27/20 08/05/23 atorvastatin 40 mg tablet 40 mg PO BEDTIME 11/27/20 08/05/23 cholecalciferol (vitamin D3) 50 50 mcg PO DAILY 11/27/20 08/05/23 mcg (2,000 unit) tablet docusate sodium 100 mg capsule 100 mg PO BID PRN constipation 11/27/20 08/05/23 duloxetine 60 mg capsule,delayed 60 mg PO DAILY 11/27/20 08/05/23 release ferrous sulfate 325 mg (65 mg 325 mg PO TID 11/27/20 08/05/23 iron) tablet gabapentin 100 mg capsule 100 mg PO DAILY 11/27/20 08/05/23 lidocaine-prilocaine 2.5 %-2.5 % 2.5 g topical DAILY 11/27/20 08/05/23 topical cream metformin 1,000 mg tablet 1,000 mg PO BID 11/27/20 08/05/23 omega-3 fatty acids-fish oil 340 1 cap PO BID 11/27/20 08/05/23 mg-1,000 mg capsule pantoprazole 40 mg tablet,delayed 40 mg PO DAILY 11/27/20 08/05/23 release simethicone 180 mg capsule 180 mg PO TID PRN Constipation 11/27/20 08/05/23 glipizide 10 mg tablet 10 mg PO BID 08/06/21 08/05/23 albuterol sulfate 90 mcg/actuation 2 puff inhalation Q4H PRN 05/14/22 08/05/23 aerosol inhaler (Ventolin HFA) dexlansoprazole 60 mg 60 mg PO DAILY 05/14/22 08/05/23 capsule,biphase delayed release (Dexilant) fluticasone propionate 220 2 puff inhalation BID 05/14/22 08/05/23 mcg/actuation HFA aerosol inhaler (Flovent HFA) nebulizers 04/02/23 08/05/23 Previous Rx's Medication Instructions Recorded furosemide 40 mg tablet 40 mg PO DAILY #90 tabs 01/23/21 fluticasone fur. 100 mcg-umeclid 1 inh inhalation DAILY 30 days #60 05/15/22 62.5 mcg-vilant 25 mcg ea inhalat.powder (Trelegy Ellipta) inhalational spacing device #1 ea 06/18/22 (Vortex Holding Chamber) apixaban 5 mg tablet (Eliquis) 5 mg PO BID #180 tabs 07/02/22 metoprolol tartrate 50 mg tablet 50 mg PO BID #180 tabs 08/12/22 amlodipine 10 mg tablet 10 mg PO DAILY #90 tabs 09/30/22 albuterol sulfate 2.5 mg/3 mL 2.5 mg (3 mL) inhalation Q4H PRN 11/18/22 (0.083 %) solution for nebulization for wheezing #180 mL hydralazine 50 mg tablet 50 mg PO TID 90 days #270 tabs 02/11/23 furosemide 20 mg tablet (Lasix) 20 mg PO DAILY PRN weight gain 14 05/09/23 days #14 tabs candesartan 16 mg tablet 16 mg PO DAILY 90 days #90 tabs 07/08/23 sildenafil (pulm.hypertension) 20 20 mg PO TID 90 days #270 tabs 07/21/23 mg tablet famotidine 20 mg tablet (Pepcid) 20 mg PO BID 10 days #20 tabs 08/04/23 Allergies Allergy/AdvReac Type Severity Reaction Status Date / Time faviola [FAVIOLA] AdvReac Intermediate NAUSEA & Verified 08/05/23 13:40 VOMITING Penicillins [PENICILLINS] AdvReac Unknown NAUSEA & Verified 08/05/23 13:40 VOMITING YUCA Allergy Unknown NAUSEA & Uncoded 05/09/23 14:28 VOMITING SARDINES AdvReac Intermediate NAUSEA & Uncoded 05/09/23 14:28 VOMITING Review of Systems Review of Systems: acid burning epigastric pain Yes all other systems are reviewed and are negative [facility] Past Medical History Medical History Chest discomfort Shortness of breath ANKIT (obstructive sleep apnea) Asthma Pulmonary hypertension Vasovagal syncope Type 2 diabetes mellitus with unspecified complications Essential hypertension PAF (paroxysmal atrial fibrillation) Cardiomyopathy Surgical History No pertinent past surgical history Family History Family History Father No problems noted. Mother No problems noted. Social History Social History Alcohol intake: never Patient Tobacco Use Status: Never used Tobacco Physical Exam ED Vital Signs: Vital Signs - 24 hr 08/04/23 14:17 08/04/23 16:39 08/04/23 18:28 Temperature 98.6 F 97.8 F Pulse Rate 83 69 67 Respiratory Rate 18 23 H 16 Blood Pressure 121/71 129/49 L 157/63 H Pulse Oximetry 96 98 98 Oxygen Delivery Method Room Air Room Air Room Air BMI result Body Mass Index 32.1 Const General: cooperative, healthy appearing, comfortable, no acute distress, well developed, alert, awake and Physically active Orientation/consciousness: oriented to person, oriented to place, oriented to time and patient oriented x3 HENMT Head: Yes normal to inspection, Yes No palpable skull fracture present, Yes normocephalic and Yes atraumatic Eyes General: appearance normal, both eyes and all related structures Neck Neck: Yes normal visual inspection, Yes full ROM, Yes no lymphadenopathy, Yes no meningeal signs, Yes trachea midline, Yes supple, No anterior neck swelling and No tender Chest Chest palpation & inspection: normal inspection of the chest and normal palpation of entire chest wall Resp Effort & Inspection: normal respiratory effort and able to speak in complete sentences Auscultation: clear to auscultation bilaterally Cardio Jugular venous distension: no JVD Heart sounds: S1 normal heart sound present and S2 normal heart sound present GI Inspection: Yes normal to inspection and No abdominal wall ecchymosis Palpation (GI): Soft to palpation, not firm, Tenderness to palpation present (GI) in the epigastrum, no guarding and not rigid General: No CVA tenderness and Yes no CVA tenderness Back/Spine/Pelvis Back: no CVA tenderness, No CVA tenderness and No back tenderness Skin General skin exam: no rashes or lesions noted, elasticity normal and turgor normal Neuro General: oriented to person, oriented to place, oriented to time, patient oriented x3, gait normal, tone normal, moves all extremities, Normal light touch and pain sensation, no meningeal signs, no focal motor deficits, CN's II-XI intact bilaterally and normal sensation to monofilament Extrem General: Yes normal to inspection and Yes full ROM Psych Appearance: grossly normal, well kempt and not disheveled Course Course Course Narrative: RME performed by Linda Adan PA-C. Patient is a 77 year old assigned female at presenting to the emergency department with acid reflux. Labs, imaging, and swabs ordered. Patient placed back in the waiting room pending room availability and results. Medications Administered Discontinued Medications Generic Name Dose Route Start Last Admin Trade Name Freq PRN Reason Stop Dose Admin Al Hydroxide/Mg Hydroxide 30 ml 08/04/23 17:25 08/04/23 18:19 Magnesium Hydrox/Alum Hydrox 30 Ml Oral.Susp PO 08/04/23 17:26 30 ml ONCE ONE Administration Belladonna Alkaloids/Phenobarbital 10 ml 08/04/23 17:25 08/04/23 18:18 Phenobarb/Hyoscy/Atropine/Scop 10 Ml Elixir PO 08/04/23 17:26 10 ml ONCE ONE Administration Famotidine 20 mg 08/04/23 17:25 08/04/23 18:19 Famotidine 20 Mg Tablet PO 08/04/23 17:26 20 mg ONCE ONE Administration Lidocaine HCl 15 ml 08/04/23 17:25 08/04/23 18:19 Lidocaine Hcl Viscous 2 % 15 Ml Solution MUCOUS MEM 08/04/23 17:26 15 ml ONCE ONE Administration Medical Decision Making Medical Decision Making [facility] Narrative: 75 yold femalae with pmh of GERD, DM, HTN, CKD presents to the ED for epigastric pain. described as acid burning sensation. Patient deneies any lower abdominal pain. Patietn states no symptoms. Labs ordered. patient sent for Dry CT scan. 8:49pm: 2nd troponin came back negative. EKG negative STEMI. Abdominal CT scan negative for any acute abdominal etiology. Patient and daughter informed to follow-up with primary care provided for GERD exacerbation. Patient informed to continue taking pantoprazole for acid reflux. Differential Diagnosis Differential Diagnoses: The differential diagnosis associated with the presentation includes ( NV, pancreatitis, cholecystitis, acid reflux) Admission/Observation Consideration of admission/observation: Escalation of care including admission/observation considered Lab Data MDM Lab Attestation statement: I reviewed the patient's lab results. 08/04/23 14:56 08/04/23 14:56 Labs: Lab Results 08/04/23 08/04/23 08/04/23 Range/Units 14:56 17:50 18:26 WBC 4.4 L (4.8-10.8) X10*3/uL RBC 3.59 L (4.20-5.50) X10*6/uL Hgb 10.9 L (12.0-16.0) g/dl Hct 34.3 L (37.0-47.0) % MCV 95.5 (80.0-98.0) fL MCH 30.4 (27.0-33.0) pg MCHC 31.8 (31.0-35.0) g/dl RDW 14.4 (11.0-16.0) % Plt Count 254 (160-400) X10*3/uL MPV 11.3 (9.4-12.3) fL Immature Gran % (Auto) 0.5 H (0.0-0.4) % Neut % (Auto) 65.8 (45-73) % Lymph % (Auto) 16.5 L (20-40) % Edgar % (Auto) 6.8 (2-11) % Eos % (Auto) 9.5 H (0-4) % Baso % (Auto) 0.9 (0-2) % Lymph # (Auto) 0.7 L (1.2-4.9) X10*3/uL Edgar # (Auto) 0.3 (0.1-1.2) X10*3/uL Eos # (Auto) 0.4 (0.0-0.4) X10*3/uL Baso # (Auto) 0.0 (0.0-0.2) X10*3/uL Abs Immat Gran (auto) 0.02 (0.00-0.03) X10*3/uL Absolute Neuts (auto) 2.9 (2.0-8.3) x10*3/uL Absolute Nucleated RBC 0.000 (0.0-0.012) X10*3/uL Nucleated RBC % (auto) 0.0 (0.0-0.2) /100WBC PT 12.1 (11.1-13.3) SEC INR 1.0 (0.9-1.1) APTT 30.1 (26.0-36.4) SEC Sodium 136 (135-145) mmol/L Potassium 4.5 (3.3-5.1) mmol/L Chloride 96 (96-108) mmol/L Carbon Dioxide 29 (22-29) mmol/L Anion Gap 16 (12-20) BUN 89 H (9-16) mg/dL Creatinine 2.66 H (0.5-1.4) mg/dL Estim Creat Clear Calc 16.3 Estimated GFR 17 Random Glucose 267 H (60-115) mg/dL Calcium 9.7 D (8.4-10.2) mg/dL Magnesium 2.0 (1.6-2.6) mg/dL Total Bilirubin 0.3 (0.0-1.0) mg/dL AST 10 (5-31) U/L ALT 5 (0-31) U/L Alkaline Phosphatase 27 L (39-117) U/L Troponin I High Sens 8.0 8.1 (<3.5-17.0) ng/L B-Natriuretic Peptide 154 H (<100) pg/mL Total Protein 6.7 (6.5-8.0) g/dL Albumin 3.8 (3.5-5.0) g/dL Lipase 37 (8-78) U/L Urine Color Yellow Urine Appearance Clear Urine pH 5.5 (5.0-9.0) Ur Specific [place] 1.010 (1.005-1.025) Urine Protein Negative (Neg-Trace) mg/dL Urine Glucose (UA) Negative (Negative) mg/dL Urine Ketones Negative (Negative) mg/dL Urine Blood Negative (Negative) Urine Nitrite Negative (Negative) Ur Leukocyte Esterase Moderate (2+) H (Negative) Urine RBC 0-2 (0-2) /HPF Urine WBC 0-5 (0-5) /HPF Ur Squamous Epith Cells 0-2 (0-2) /HPF Urine Bacteria None Seen (None Seen) Hyaline Casts 0-2 (0-2) /LPF Influenza Type A (PCR) NEGATIVE (Negative) Influenza Type B (PCR) NEGATIVE (Negative) RSV RNA Qual (PCR) NEGATIVE (Negative) SARS-CoV-2 RNA (RT-PCR) NEGATIVE (Negative) Independent Interpretation I performed an independent interpretation of an: EKG ( normal sinus rhythm. Negative STEMI) and CT Scan Radiology Impression Discussion of test interpretation with radiology: I have reviewed the radiologist's reading. Independent Historian Clinical information obtained from an independent historian. History obtained from or confirmed by: Other ( granddaughter) External Record Review External record reviewed: Other ( prior visit) Prescription Management I considered prescription management with: Other ( Pepcid) Discharge Plan Discharge Clinical Impression: Gastroesophageal reflux disease Patient Disposition: Home, Self-Care Instructions: Gastroesophageal Reflux Disease (ED) Additional Instructions: your EKG and blood work came back negative for heart attack. CT scan came back negative for any life-threatening or emergent abdominal etiology. CT scan abdomen pelvis does show left ovarian cyst which will need re-evaluation in 6 months as per radiologist. Return to the ED immediately for any worsening abdominal pain, nausea, vomiting, vomiting blood, rectal bleeding, flank pain, fever, chills, dysuria, hematuria, chest pain, shortness of breath, or any other concerning symptoms. 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 Wright electrocardiograma y an?lisis de luke resultaron negativos para un ataque card?aco. La tomograf?a computarizada result? negativa para cualquier etiolog?a abdominal emergente o potencialmente mortal. La tomograf?a computarizada del abdomen y la pelvis muestra un quiste de ovario ingrid que necesitar? zarina reevaluaci?n en 6 meses seg?n el radi?logo. Regrese al servicio de urgencias de inmediato si el dolor abdominal, n?useas, v?mitos, v?mitos con luke, sangrado rectal, dolor en el costado, fiebre, escalofr?os, disuria, hematuria, dolor en el pecho, dificultad para respirar o cualquier otro s?ntoma preocupante empeoran. Por favor rick seguimiento con wright proveedor de atenci?n primaria y gastroenter?logo. Prescriptions: New famotidine [Pepcid] 20 mg tablet 20 mg PO BID 10 Days Qty: 20 0RF No Action furosemide 40 mg tablet 40 mg PO DAILY Qty: 90 3RF (DME) Vortex Holding Chamber Spacer See Rx Instructions .Route Qty: 1 0RF Rx Instructions: As directed Eliquis 5 mg tablet 5 mg PO BID Qty: 180 3RF metoprolol tartrate 50 mg tablet 50 mg PO BID Qty: 180 3RF amlodipine 10 mg tablet 10 mg PO DAILY Qty: 90 2RF albuterol sulfate 2.5 mg /3 mL (0.083 %) solution for nebulization 2.5 mg inhalation Q4H PRN (Reason: for wheezing) Qty: 180 0RF hydralazine 50 mg tablet 50 mg PO TID 90 Days Qty: 270 3RF candesartan 16 mg tablet 16 mg PO DAILY 90 Days Qty: 90 3RF sildenafil (pulm.hypertension) 20 mg tablet 20 mg PO TID 90 Days Qty: 270 3RF Rx Instructions: administer doses at least 4-6 hours apart duloxetine 60 mg capsule,delayed release(DR/EC) 60 mg PO DAILY lidocaine-prilocaine 2.5-2.5 % cream 2.5 g topical DAILY gabapentin 100 mg capsule 100 mg PO DAILY pantoprazole 40 mg tablet,delayed release (DR/EC) 40 mg PO DAILY Fish Oil 340-1,000 mg capsule 1 cap PO BID docusate sodium 100 mg capsule 100 mg PO BID PRN (Reason: constipation) alendronate 70 mg tablet 70 mg PO QWEEK atorvastatin 40 mg tablet 40 mg PO BEDTIME ferrous sulfate 325 mg (65 mg iron) tablet 325 mg PO TID simethicone 180 mg capsule 180 mg PO TID PRN (Reason: Constipation) metformin 1,000 mg tablet 1,000 mg PO BID acetaminophen-codeine 300-30 mg tablet 1 tab PO DAILY PRN (Reason: Pain) cholecalciferol (vitamin D3) 50 mcg (2,000 unit) tablet 50 mcg PO DAILY glipizide 10 mg tablet 10 mg PO BID dexlansoprazole [Dexilant] 60 mg capsule,biphase delayed releas 60 mg PO DAILY fluticasone propionate [Flovent HFA] 220 mcg/actuation HFA aerosol inhaler 2 puff inhalation BID albuterol sulfate [Ventolin HFA] 90 mcg/actuation HFA aerosol inhaler 2 puff inhalation Q4H PRN Trelegy Ellipta 100-62.5-25 mcg blister with device 1 inh inhalation DAILY 30 Days Qty: 60 11RF furosemide [Lasix] 20 mg tablet 20 mg PO DAILY PRN (Reason: weight gain) 14 Days Qty: 14 0RF (DME) nebulizers Misc See Rx Instructions .Route Rx Instructions: As directed Interventions: ED Discharge Assessment Last Done: 08/04/23 21:03 Discharge Date/Time: 08/04/23 21:04 Print Language: Hebrew
[2023-08-04 14:17] VITALS: BP 121/71; PULSE 83; RESP 18; TEMP 37; O2SAT 96; BMI 32.1
--- NOTE | 2023-08-04 14:17 | ECG_ITS ---
Test Reason : epigastric pain Blood Pressure : / mmHG Vent. Rate : 072 BPM Atrial Rate : 072 BPM P-R Int : 166 ms QRS Dur : 082 ms QT Int : 418 ms P-R-T Axes : 090 054 095 degrees QTc Int : 457 ms Normal sinus rhythm Normal ECG When compared with ECG of 28-JAN-2022 03:10, No significant change was found Referred By: Linda Adan Electronically Signed By:MARKELL GERMAN MD
[2023-08-04 15:02] LABS: MANUAL DIFF FLAG NO
[2023-08-04 15:10] LABS: Prothrombin Time 12.1 SEC (11.1-13.3)
[2023-08-04 15:11] LABS: Basophils Percent Auto 0.9 % (0-2); Eosinophils Absolute Auto 0.4 X10*3/uL (0.0-0.4); Eosinophils Percent Auto 9.5 % (0-4); Hematocrit 34.3 % (37.0-47.0); Hemoglobin 10.9 g/dl (12.0-16.0); Imm Gran Abs Auto 0.02 X10*3/uL (0.00-0.03); Imm Gran Pct Auto 0.5 % (0.0-0.4); Lymphocytes Absolute Auto 0.7 X10*3/uL (1.2-4.9); Lymphocytes Percent Auto 16.5 % (20-40); Mean Corpuscular HGB Conc 31.8 g/dl (31.0-35.0); Mean Corpuscular Hemoglobin 30.4 pg (27.0-33.0); Mean Corpuscular Volume 95.5 fL (80.0-98.0); Mean Platelet Volume 11.3 fL (9.4-12.3); Monocytes Absolute Auto 0.3 X10*3/uL (0.1-1.2); Monocytes Percent Auto 6.8 % (2-11); Neutrophils Absolute Auto 2.9 x10*3/uL (2.0-8.3); Neutrophils Percent Auto 65.8 % (45-73); Platelet Count 254 X10*3/uL (160-400); Red Blood Count 3.59 X10*6/uL (4.20-5.50); Red Cell Distribution Width 14.4 % (11.0-16.0); White Blood Count 4.4 X10*3/uL (4.8-10.8)
[2023-08-04 15:13] LABS: Partial Thromboplastin Time 30.1 SEC (26.0-36.4)
[2023-08-04 15:19] LABS: Alanine Aminotransferase 5 U/L (0-31); Albumin Level 3.8 g/dL (3.5-5.0); Alkaline Phosphatase 27 U/L (39-117); Anion Gap 16 (12-20); Aspartate Amino Transferase 10 U/L (5-31); Bilirubin Total 0.3 mg/dL (0.0-1.0); Blood Urea Nitrogen 89 mg/dL (9-16); Calcium 9.7 mg/dL (8.4-10.2); Carbon Dioxide 29 mmol/L (22-29); Chloride 96 mmol/L (96-108); Creatinine Clr Calc Pharmacy 16.3; Estimated Glomerular Filt Rate 17; Glucose Random 267 mg/dL (60-115); Potassium 4.5 mmol/L (3.3-5.1); Sodium 136 mmol/L (135-145); Total Protein 6.7 g/dL (6.5-8.0)
[2023-08-04 15:24] LABS: B Type Natriuretic Peptide 154 pg/mL (<100)
[2023-08-04 15:41] LABS: Influenza A PCR NEGATIVE (Negative); Influenza B PCR NEGATIVE (Negative); Resp Syncy Virus RNA Qual PCR NEGATIVE (Negative); SARS COV2 PCR INHOUSE NEGATIVE (Negative)
[2023-08-04 16:39] VITALS: BP 129/49; PULSE 69; RESP 23; TEMP 36.6; O2SAT 98
[2023-08-04 16:52] LABS: Lipase 37 U/L (8-78)
[2023-08-04 18:15] LABS: Troponin-I High Sensitivity 8.1 ng/L (<3.5-17.0)
[2023-08-04] MEDS: PHENobarb/Hyoscy/Atropine/Scop 10 ML ELIXIR PO (18:18)
[2023-08-04] MEDS: Lidocaine HCl Viscous 2 % 15 ML SOLUTION MUCOUS MEM (18:19)
[2023-08-04] MEDS: Famotidine 20 MG TABLET PO (18:19)
[2023-08-04] MEDS: Magnesium Hydrox/Alum Hydrox 30 ML ORAL.SUSP PO (18:19)
[2023-08-04 18:28] VITALS: BP 157/63; PULSE 67; RESP 16; O2SAT 98
--- NOTE | 2023-08-04 18:29 | PC.NURSE ---
pt has remained comfortable for mostnof her stay. pt reports increased epigastric pain when she swallows water, this discomfort resolves on its own. pt has remained in ns in lead [address] report and repeatb trop.
[2023-08-04 18:33] LABS: Appearance Urine Clear; Color Urine Yellow; Glucose Urine UA Negative (Negative); Leukocyte Esterase Urine Moderate (2+) (Negative); Nitrite Urine Negative (Negative); PH 5.5 (5.0-9.0); UMIC TRIGGER UACC YES; Urine Blood Negative (Negative); Urine Ketones Negative (Negative); Urine Protein Negative (Neg-Trace)
[2023-08-04 18:48] LABS: Bacteria Urine None Seen (None Seen); Hyaline Casts Urine 0-2 /LPF (0-2); RBC Urine 0-2 /HPF (0-2); Squamous Epithelial Cell Urine 0-2 /HPF (0-2); WBC Urine 0-5 /HPF (0-5)
== END 2023-08-04 21:04 | disposition home or self-care (01) ==
PROVIDERS: Physician Assistant; Physician Assistant Medical; Emergency Provider Internal Medicine; PCP Pediatrics
DX: K21.9 Gastro-esophageal reflux disease without esophagitis (principal); R11.0 Nausea; E11.22 Type 2 diabetes mellitus with diabetic chronic kidney disease; I12.9 Hypertensive chronic kidney disease with stage 1 through stage 4 chronic kidney disease, or unspecified chronic kidney disease; N18.9 Chronic kidney disease, unspecified; R20.8 Other disturbances of skin sensation; Z20.822 Contact with and (suspected) exposure to COVID-19; Z20.828 Contact with and (suspected) exposure to other viral communicable diseases
CPT/HCPCS: 0241U; 36415; 74176; 80053; 81001; 83690; 83735; 83880; 84484; 85025; 85610; 85730; 93005; 99284

== ENCOUNTER 2023-08-05 13:34 | Outpatient (AMB) | payer OTHER, SELFPAY ==
[2023-08-05 13:36] VITALS: BP 114/62; BMI 31.4
--- NOTE | 2023-08-05 13:36 | A.OFFVIS_ITS ---
Intake Vital Signs 08/05/23 13:36 Height 5 ft 1 in Weight 166 lb 3.657 oz BMI 31.4 BP 114/62 Blood Pressure Location Lt brachial Position Sitting Intake Visit Reasons: 4 mth f/up Brush Material Preparer Required: Yes Brush Material Preparer Language: Heat And Frost Insulator Helper Name: dyllan todd [id number] Geographic Information Systems Engineer: Geographic Information Systems Engineer Present Accompanied by: hija Allergies faviola [FAVIOLA] Adverse Reaction (Intermediate, Verified 08/05/23 13:40) NAUSEA & VOMITING Penicillins [PENICILLINS] Adverse Reaction (Unknown, Verified 08/05/23 13:40) NAUSEA & VOMITING [facility] Allergy (Unknown, Uncoded 05/09/23 14:28) NAUSEA & VOMITING SARDINES Adverse Reaction (Intermediate, Uncoded 05/09/23 14:28) NAUSEA & VOMITING Medication List - Last Reconciled 08/05/23 by Rebeca Ortiz UNDERGROUND CONDUIT INSTALLER-C acetaminophen-codeine 300-30 mg 1 tab PO DAILY PRN albuterol sulfate 90 mcg/actuation (Ventolin HFA) 2 puffs inhalation Q4H PRN albuterol sulfate 2.5 mg (3 mL) inhalation Q4H PRN alendronate 70 mg PO QWEEK amlodipine 10 mg PO DAILY apixaban (Eliquis) 5 mg PO BID atorvastatin 40 mg PO BEDTIME candesartan 16 mg PO DAILY 90 days cholecalciferol (vitamin D3) 50 mcg PO DAILY dexlansoprazole (Dexilant) 60 mg PO DAILY docusate sodium 100 mg PO BID PRN duloxetine 60 mg PO DAILY famotidine (Pepcid) 20 mg PO BID 10 days ferrous sulfate 325 mg PO TID fluticasone propionate 220 mcg/actuation (Flovent HFA) 2 puffs inhalation BID gpmyygzolza-fwjstkpkg-bpogxytw 100-62.5-25 mcg (Trelegy Ellipta) 1 inh inhalation DAILY 30 days furosemide 40 mg PO DAILY furosemide (Lasix) 20 mg PO DAILY PRN 14 days gabapentin 100 mg PO DAILY glipizide 10 mg PO BID hydralazine 50 mg PO TID 90 days inhalational spacing device (Vortex Holding Chamber) As directed lidocaine-prilocaine 2.5-2.5 % 2.5 grams topical DAILY metformin 1,000 mg PO BID metoprolol tartrate 50 mg PO BID nebulizers As directed omega-3 fatty acids-fish oil 340-1,000 mg 1 cap PO BID pantoprazole 40 mg PO DAILY sildenafil (pulm.hypertension) 20 mg PO TID 90 days simethicone 180 mg PO TID PRN HPI 4 mth f/up HPI Details Belen is a 77-year-old female past medical history diabetes, pulmonary hypertension, paroxysmal AFib, cardiomyopathy, diastolic heart failure, obstructive sleep apnea who presents for follow-up. Today she reports that she does have some shortness of breath with activity which is not new. She follows with Dr. Johnson for pulmonary hypertension. She denies any chest discomfort brought on by activity. No concerning heart palpitations. No presyncope, syncope, falls. No PND, orthopnea or edema. She does have fibromyalgia and various muscle and joint discomfort. She is mostly sedentary. Daughter is present. 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 Mother No problems noted. Social History Alcohol intake: never Patient Tobacco Use Status: Never used Tobacco Review of Systems Const All systems reviewed & are unremarkable except as noted in HPI and below ENT Denies dizziness Card Denies chest pain, Denies chest pain at rest, Denies chest pain with activity, Denies rapid heart rate, Denies pedal edema, Denies edema, Denies leg edema, Denies lightheadedness, Denies palpitations, Denies dyspnea, Denies dyspnea on exertion and Denies orthopnea Resp Denies cough, Denies dyspnea and Denies dyspnea on exertion GI Details: GERD Denies hematochezia and Denies change in stool character Musc Reports abnormal gait, Denies limited range of motion, Denies muscle cramps, Denies muscle weakness, Denies numbness, Denies radiating pain into limb, Denies stiffness and Denies tingling Neuro Reports abnormal gait, Denies dizziness, Denies numbness and Denies tingling Endo Denies palpitations Physical Exam Vital Signs: Last Vital Signs BP 114/62 08/05/23 13:36 BMI result Body Mass Index 31.4 Const General: cooperative, comfortable and no acute distress Orientation/consciousness: patient oriented x3 Neck Neck: Yes normal visual inspection Resp Effort & Inspection: normal respiratory effort Auscultation: clear to auscultation bilaterally, no rales, no rhonchi and no wheezes Cardio Jugular venous distension: no JVD Rate: regular rate Rhythm: regular rhythm Heart sounds: S1 normal heart sound present, S2 normal heart sound present, no murmurs and no rubs Neuro General: patient oriented x3 Extrem General: Yes normal to inspection and No no pedal edema Psych Appearance: grossly normal Mental Status: mental status grossly normal Speech and movement: Normal speech and movement present Assessment & Plan Assessment & Plan (1) Chronic diastolic (congestive) heart failure: Code(s): I50.32 - Chronic diastolic (congestive) heart failure Plan: History of diastolic heart failure. Last echocardiogram done 01/29/2023 showed normal EF, 55% with grade 2 diastolic dysfunction, basal inferior hypokinetic. Nuclear stress test done 03/13/2022 showed normal myocardial perfusion imaging. Today she reports shortness of breath with activity which is not new. She also has chronic pain which causes her breathing to be shallow. She follows with Dr. Johnson for pulmonology. She has known pulmonary hypertension. No evidence of fluid overloaded on examination. She will continue on current Lasix. Signs and symptoms of heart failure reviewed with her and daughter. Cardiology follow-up in 4 months, sooner if needed (2) Shortness of breath: Code(s): R06.02 - Shortness of breath (3) PAF (paroxysmal atrial fibrillation): Code(s): I48.0 - Paroxysmal atrial fibrillation Plan: History of paroxysmal atrial fibrillation. No reports of heart palpitations in recent months. Last EKG showing normal sinus rhythm, rate 73. pulse is regular on examination today without concern for AFib. She is on metoprolol for heart rate control. She is on Eliquis for anticoagulation. Labs done 08/04/2023 shows creatinine 2.66. She has a known history of chronic kidney disease. This result is mildly higher than last known creatinine. She has note no recent cardiac medication changes. For her age and weight the Eliquis dose of 5 mg b.i.d. is appropriate. she is reported to have dementia. She is not ambulating independently at home. She is mostly sedentary and no falls reported. (4) Pulmonary hypertension: Code(s): I27.20 - Pulmonary hypertension, unspecified Plan: Following with Dr. Johnson (5) ANKIT (obstructive sleep apnea): Code(s): G47.33 - Obstructive sleep apnea (adult) (pediatric) Plan: Moderate to severe obstructive sleep apnea. Following with Dr. Johnson (6) Essential hypertension: Code(s): I10 - Essential (primary) hypertension Plan: Blood pressure normal range today. Continue current med management. (7) Chest discomfort: Code(s): R07.89 - Other chest pain Plan: On last visit she had Very Atypical sounding chest discomfort, worse with palpation, with frequent belching. Echocardiogram does mention basal inferior hypokinesis. Nuclear stress test last year was normal. In the absence of anginal sounding symptoms no further cardiac testing was be performed at this time. She was seen in the emergency room yesterday for epigastric type discomfort. She ruled out for ACS. She was determined to have GERD. She was referred back to GI. Coding Level of Care Code Est Pt Level 4 (84506) Diagnoses Chronic diastolic (congestive) heart failure I50.32 Shortness of breath R06.02 PAF (paroxysmal atrial fibrillation) I48.0 Pulmonary hypertension I27.20 ANKIT (obstructive sleep apnea) G47.33 Essential hypertension I10 Chest discomfort R07.89 Time Spent (min) 26
== END 2023-08-05 14:06 | disposition home or self-care (01) ==
PROVIDERS: PCP Pediatrics; Visit Provider Nurse Practitioner Family
DX: I50.32 Chronic diastolic (congestive) heart failure (principal); R06.02 Shortness of breath; I48.0 Paroxysmal atrial fibrillation; I27.20 Pulmonary hypertension, unspecified; G47.33 Obstructive sleep apnea (adult) (pediatric); I10 Essential (primary) hypertension; R07.89 Other chest pain
CPT/HCPCS: 99214

== ENCOUNTER → 2023-08-05 13:34 | Outpatient (BNVA) | payer OTHER, SELFPAY | PROVIDERS: PCP Pediatrics; Visit Provider Nurse Practitioner Family | DX: I11.0 Hypertensive heart disease with heart failure (principal); I50.32 Chronic diastolic (congestive) heart failure; I48.0 Paroxysmal atrial fibrillation; I27.20 Pulmonary hypertension, unspecified; G47.33 Obstructive sleep apnea (adult) (pediatric); R06.02 Shortness of breath; R07.89 Other chest pain | CPT/HCPCS: 99212 ==

== ENCOUNTER 2023-08-08 14:10 | Outpatient (AMB) | payer OTHER, SELFPAY ==
[2023-08-08 14:15] VITALS: PULSE 71; O2SAT 97; BMI 50.8
--- NOTE | 2023-08-08 14:15 | A.OFFVIS_ITS ---
Intake Vital Signs 08/08/23 14:15 Height 5 ft 1 in Weight 269 lb BMI 50.8 Pulse 71 Pulse Source Pulse Oximeter Pulse Oximetry (%) 97 Oxygen Delivery Method Room Air Intake Visit Reasons: ankit Marketing Intelligence Analyst Required: No Allergies faviola [FAVIOLA] Adverse Reaction (Intermediate, Verified 08/08/23 14:16) NAUSEA & VOMITING Penicillins [PENICILLINS] Adverse Reaction (Unknown, Verified 08/08/23 14:16) NAUSEA & VOMITING [facility] Allergy (Unknown, Uncoded 08/08/23 14:16) NAUSEA & VOMITING SARDINES Adverse Reaction (Intermediate, Uncoded 08/08/23 14:16) NAUSEA & VOMITING HPI HPI Comments History of Present Illness Details The patient is a 77-year-old woman with a known history of cardiomyop athy and diastolic dysfunction. She continues to have significant shortness of breath. Moderate to severe. Today she did come in with her daughter but we did have to get her wheelchair to go back to the car because her shortness of breath. The patient also feels very fatigued. She has daytime drowsiness and sleeps throughout the day. She typically sleeps on the sofa because she feels she is more comfortable when she is has not choked up so much. Her [place] score is elevated 16/24. The patient has not had a sleep study. Will have to request a home sleep study at this time. In the meantime the patient had an echocardiogram and I did review the family. It appears that she has a severely dilated right ventricle and severe pulmonary hypertension. In part this is likely due to her diastolic dysfunction. However, additional testing is warranted. Will go ahead and request blood work in addition to a V/Q scan to rule out thromboembolic disease and also a sleep study. the patient does take Eliquis for anticoagulation. However, chronic thromboembolic disease is still in differential. 08/19/2022 the visit. The patient overa ll is doing well overall. She still having dyspnea on exertion. Moderate severity. She recently was started on sildenafil for pulmonary hypertension. She continues to have daytime drowsiness with an elevated [place] score of 12/24. She did have a sleep study done which we requested. Demonstrates that her AHI is elevated at 21 and oxygen did desaturate down to about 78% the lowest. Therefore the patient has moderate to severe sleep apnea. She has other cardiovascular risk factors. At this point she needs to start PAP therapy as soon as possible. I did talk to the patient also her daughter about using CPAP at nighttime. Her daughter also uses CPAP sure she will be able to help her mother get use to get her oriented on the therapy. The patient will come back to see me in 3 months and we will have her bring the machine in to downloaded into adjusted accordingly. 04/02/2023 the patient is here for a pulmonary follow-up visit. The patient has been complaining of increasing dyspnea on exertion. She has been getting more short of breath. She did respond well to the sildenafil when she continues use it. She also has been using her CPAP. The CPAP therapy continues to be affecting beneficial. She does have a hard time trying to get used to it but she is trying to use it at least 4 hours a night. She understand that is helping heart and her lungs overall. In the meantime the patient did have a brief walking oximetry. The patient maintain a pulse ox of 95% although she was visibly dyspneic with a dyspnea score of 7/10. she does have diminished breath sounds. I have her get a chest x-ray at this time. I will call her with the results. 05/09/2023 the patient is here for pulmonary follow-up visit. The patient is feeling better. She did respond well to the additional diuresis. Although her renal function is slightly worse. I did send her laboratory data out to her primary care doctor. she has started to get lower extremity edema again. She started to have worsening shortness of breath. I did review her last chest x- ray demonstrating mild pulmonary vascular congestion. 08/08/2023 the patient is here for a pulmonary follow-up visit. The patient is very groggy this morning. Her daughter's states that she is been sleeping a lot during the daytime. The patient feels tired right now. She has been using her respiratory medications. In addition to that she has been using her positive airway pressure therapy. She is reluctant to use it but her daughter helps her with the and she does use it for more than 4 hours a night. She continues with diuresis. Will go ahead and request additional blood work in addition to a blood gas to assess her CO2 to make sure that she is not developing hypercapnia. [facility] Medical History Chest discomfort Shortness of breath ANKIT (obstructive sleep apnea) Asthma Pulmonary hypertension Vasovagal syncope Type 2 diabetes mellitus with unspecified complications Essential hypertension PAF (paroxysmal atrial fibrillation) Cardiomyopathy Surgical History No pertinent past surgical history Family History Father No problems noted. Mother No problems noted. Social History Alcohol intake: never Patient Tobacco Use Status: Never used Tobacco Review of Systems Const Denies chills, Reports daytime sleepiness, Reports fatigue, Denies fever(s), Denies frequent falls and Reports weakness ENT Denies dizziness Card Denies chest pain, Denies leg edema, Denies lightheadedness, Denies palpitations, Reports dyspnea on exertion, Reports orthopnea and Denies other (Loss of consciousness) Resp Denies cough and Reports dyspnea on exertion GI Denies hematochezia and Denies change in bowel habits Musc Reports abnormal gait, Denies muscle weakness, Denies numbness, Denies radiating pain into limb and Denies tingling Neuro Reports abnormal gait, Denies dizziness, Denies frequent falls, Denies numbness, Denies tingling and Reports weakness Endo Reports fatigue and Denies palpitations Physical Exam Vital Signs: Last Vital Signs Pulse 71 08/08/23 14:15 Pulse Ox 97 08/08/23 14:15 Oxygen Delivery Method Room Air 08/08/23 14:15 BMI result Body Mass Index 50.8 Const General: comfortable and tired appearing Orientation/consciousness: patient oriented x3 HEENT Other: Unremarkable Head: Yes normal to inspection Eyes General: appearance normal, both eyes and all related structures Neck Neck: Yes normal visual inspection Chest Chest palpation & inspection: normal inspection of the chest Resp Auscultation: no crackles, no wheezes and diminished lung sounds Cardio Jugular venous distension: no JVD Palpation: normal PMI Heart sounds: S1 normal heart sound present, S2 normal heart sound present, no gallops, no murmurs and no rubs GI Palpation (GI): Soft to palpation Back/Spine/Pelvis Other: unremarkable Skin General skin exam: no rashes or lesions noted Neuro General: patient oriented x3 Extrem General: Yes no clubbing, cyanosis or edema Psych Mental Status: mental status grossly normal Assessment & Plan Assessment & Plan (1) Pulmonary hypertension: Code(s): I27.20 - Pulmonary hypertension, unspecified (2) ANKIT (obstructive sleep apnea): Code(s): G47.33 - Obstructive sleep apnea (adult) (pediatric) (3) Asthma: Code(s): J45.909 - Unspecified asthma, uncomplicated Qualifiers: Asthma severity: moderate Asthma persistence: persistent Asthma complication type: uncomplicated Qualified Code(s): J45.40 - Moderate persistent asthma, uncomplicated (4) Shortness of breath: Code(s): R06.02 - Shortness of breath Plan continue APAP continue Sildanefil continue diuresis as tolerated bloodwork and bloodgas continue Trelegy 1 inhalation daily F/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 follow-up in 3-4 months Orders: Orders Erythrocyte Sedimentation Rate 08/08/23 I27.20 - Pulmonary hypertension, unspecified, J45.909 - Unspecified asthma, uncomplicated DAYANARA Reflex Titer and Pattern 08/08/23 I27.20 - Pulmonary hypertension, unspecified, J45.909 - Unspecified asthma, uncomplicated Complete Blood Count Auto Diff 08/08/23 I27.20 - Pulmonary hypertension, unspecified, J45.909 - Unspecified asthma, uncomplicated Basic Metabolic Panel 08/08/23 I27.20 - Pulmonary hypertension, unspecified, J45.909 - Unspecified asthma, uncomplicated Cyclic Citrullinated Peptide 08/08/23 I27.20 - Pulmonary hypertension, unspecified, J45.909 - Unspecified asthma, uncomplicated Venous Blood Gas 08/08/23 I27.20 - Pulmonary hypertension, unspecified, J45.909 - Unspecified asthma, uncomplicated Coding Level of Care Code Est Pt Level 4 (55176) Diagnoses Pulmonary hypertension I27.20 ANKIT (obstructive sleep apnea) G47.33 Moderate persistent asthma without complication J45.40 Asthma severity: moderate Asthma persistence: persistent Asthma complication type: uncomplicated Shortness of breath R06.02 Time Spent (min) 16
== END 2023-08-08 14:54 | disposition home or self-care (01) ==
PROVIDERS: PCP Pediatrics; Visit Provider Hospitalist
DX: I27.20 Pulmonary hypertension, unspecified (principal); G47.33 Obstructive sleep apnea (adult) (pediatric); J45.40 Moderate persistent asthma, uncomplicated; R06.02 Shortness of breath
CPT/HCPCS: 99214

== ENCOUNTER → 2023-08-08 14:10 | Outpatient (BNVA) | payer OTHER, SELFPAY | PROVIDERS: PCP Pediatrics; Visit Provider Hospitalist | DX: J45.40 Moderate persistent asthma, uncomplicated (principal); G47.33 Obstructive sleep apnea (adult) (pediatric); I27.20 Pulmonary hypertension, unspecified; R06.02 Shortness of breath | CPT/HCPCS: 99212 ==

== ENCOUNTER 2023-08-20 13:43 | Outpatient (REF) | payer OTHER, SELFPAY ==
[2023-08-20 13:56] LABS: MANUAL DIFF FLAG NO
[2023-08-20 14:02] LABS: Basophils Percent Auto 0.9 % (0-2); Eosinophils Absolute Auto 0.3 X10*3/uL (0.0-0.4); Eosinophils Percent Auto 6.9 % (0-4); Hematocrit 35.1 % (37.0-47.0); Imm Gran Abs Auto 0.01 X10*3/uL (0.00-0.03); Imm Gran Pct Auto 0.2 % (0.0-0.4); Lymphocytes Absolute Auto 0.5 X10*3/uL (1.2-4.9); Lymphocytes Percent Auto 10.8 % (20-40); Mean Corpuscular HGB Conc 31.3 g/dl (31.0-35.0); Mean Corpuscular Hemoglobin 30.3 pg (27.0-33.0); Mean Corpuscular Volume 96.7 fL (80.0-98.0); Mean Platelet Volume 10.5 fL (9.4-12.3); Monocytes Absolute Auto 0.2 X10*3/uL (0.1-1.2); Neutrophils Absolute Auto 3.5 x10*3/uL (2.0-8.3); Neutrophils Percent Auto 76.2 % (45-73); Platelet Count 255 X10*3/uL (160-400); Red Blood Count 3.63 X10*6/uL (4.20-5.50); Red Cell Distribution Width 14.6 % (11.0-16.0); White Blood Count 4.6 X10*3/uL (4.8-10.8)
[2023-08-20 14:14] LABS: VBG Base Excess -1.8 mmol/L; VBG HCO3 23 mmol/L (22-26); VBG pCO2 43 mmHg; VBG pH 7.34 (7.32-7.43); VBG pO2 54 mmHg
[2023-08-20 14:15] LABS: Venous Blood Gas Refer to POC result
[2023-08-20 14:30] LABS: Anion Gap 14 (12-20); Blood Urea Nitrogen 48 mg/dL (9-16); Calcium 9.2 mg/dL (8.4-10.2); Carbon Dioxide 23 mmol/L (22-29); Chloride 104 mmol/L (96-108); Estimated Glomerular Filt Rate 19; Glucose Random 234 mg/dL (60-115); Potassium 5.1 mmol/L (3.3-5.1); Sodium 136 mmol/L (135-145)
[2023-08-20 14:43] LABS: Erythrocyte Sedimentation Rate 25 MM/HR (0-20)
[2023-08-21 13:43] LABS: Cyclic Citrullinated Peptide <16 UNITS
[2023-08-25 15:38] LABS: Anti Nuclear Antibody Pattern Nuclear, Homogeneous; Anti Nuclear Antibody Screen POSITIVE (NEGATIVE)
== END 2023-08-20 13:44 | disposition home or self-care (01) ==
LOC: HO.LAB 13:43
PROVIDERS: PCP Pediatrics; Visit Provider Hospitalist
DX: I27.20 Pulmonary hypertension, unspecified (principal); J45.909 Unspecified asthma, uncomplicated
CPT/HCPCS: 36415; 80048; 82803; 85025; 85652; 86038; 86039; 86200

== ENCOUNTER 2023-10-13 15:27 | Outpatient (REF) | payer OTHER, SELFPAY ==
[2023-10-13 15:57] LABS: MANUAL DIFF FLAG NO
[2023-10-13 16:46] LABS: Basophils Absolute Auto 0.1 X10*3/uL (0.0-0.2); Basophils Percent Auto 0.8 % (0-2); Eosinophils Absolute Auto 0.6 X10*3/uL (0.0-0.4); Eosinophils Percent Auto 9.6 % (0-4); Hematocrit 35.7 % (37.0-47.0); Hemoglobin 11.4 g/dl (12.0-16.0); Imm Gran Abs Auto 0.01 X10*3/uL (0.00-0.03); Imm Gran Pct Auto 0.2 % (0.0-0.4); Lymphocytes Absolute Auto 0.9 X10*3/uL (1.2-4.9); Lymphocytes Percent Auto 14.5 % (20-40); Mean Corpuscular HGB Conc 31.9 g/dl (31.0-35.0); Mean Corpuscular Hemoglobin 30.7 pg (27.0-33.0); Mean Corpuscular Volume 96.2 fL (80.0-98.0); Mean Platelet Volume 11.3 fL (9.4-12.3); Monocytes Absolute Auto 0.3 X10*3/uL (0.1-1.2); Monocytes Percent Auto 4.4 % (2-11); Neutrophils Absolute Auto 4.2 x10*3/uL (2.0-8.3); Neutrophils Percent Auto 70.5 % (45-73); Platelet Count 237 X10*3/uL (160-400); Red Blood Count 3.71 X10*6/uL (4.20-5.50); Red Cell Distribution Width 13.5 % (11.0-16.0); White Blood Count 5.9 X10*3/uL (4.8-10.8)
[2023-10-13 16:47] LABS: Appearance Urine Clear; Color Urine Yellow; Glucose Urine UA Negative (Negative); Leukocyte Esterase Urine Trace (Negative); Nitrite Urine Negative (Negative); UMIC TRIGGER UA YES; Urine Blood Negative (Negative); Urine Ketones Negative (Negative); Urine Protein Negative (Neg-Trace)
[2023-10-13 16:54] LABS: Bacteria Urine None Seen (None Seen); Hyaline Casts Urine 0-2 /LPF (0-2); RBC Urine 0-2 /HPF (0-2); Squamous Epithelial Cell Urine 0-2 /HPF (0-2); WBC Urine 0-5 /HPF (0-5)
[2023-10-13 18:07] LABS: Alanine Aminotransferase 8 U/L (0-31); Alkaline Phosphatase 24 U/L (39-117); Anion Gap 20 (12-20); Aspartate Amino Transferase 10 U/L (5-31); Bilirubin Total 0.3 mg/dL (0.0-1.0); Blood Urea Nitrogen 84 mg/dL (9-16); Calcium 9.7 mg/dL (8.4-10.2); Carbon Dioxide 26 mmol/L (22-29); Chloride 102 mmol/L (96-108); Estimated Glomerular Filt Rate 16; Glucose Random 175 mg/dL (60-115); Iron 80 mcg/dL (30-160); Percent Iron Saturation 47 % (15-50); Sodium 143 mmol/L (135-145); Total Iron Binding Capacity 169 mcg/dL (228-428); Total Protein 7.1 g/dL (6.5-8.0); Unsaturated Iron Binding 89 ug/dL
[2023-10-13 18:22] LABS: TSH reflex Free T4 1.75 uIU/mL (0.32-4.0)
[2023-10-13 18:35] LABS: Folate 17.4 ng/mL (> or = 4.0); Vitamin B12 751 pg/mL (200-900)
== END 2023-10-13 15:28 | disposition home or self-care (01) ==
LOC: HO.LAB 15:27
PROVIDERS: Absent Provider Pediatrics; PCP Pediatrics; Visit Provider Internal Medicine
DX: I10 Essential (primary) hypertension (principal)
CPT/HCPCS: 36415; 80053; 81001; 82607; 82746; 83540; 84443; 85025

== ENCOUNTER 2023-11-21 14:18 | Outpatient (REF) | payer OTHER, SELFPAY ==
[2023-11-21 15:24] LABS: Hematocrit 32.9 % (37.0-47.0); Hemoglobin 10.4 g/dl (12.0-16.0); Mean Corpuscular HGB Conc 31.6 g/dl (31.0-35.0); Mean Corpuscular Hemoglobin 30.8 pg (27.0-33.0); Mean Corpuscular Volume 97.3 fL (80.0-98.0); Mean Platelet Volume 11.2 fL (9.4-12.3); Platelet Count 239 X10*3/uL (160-400); Red Blood Count 3.38 X10*6/uL (4.20-5.50); Red Cell Distribution Width 13.3 % (11.0-16.0); White Blood Count 6.6 X10*3/uL (4.8-10.8)
[2023-11-21 15:42] LABS: Parathyroid Hormone Intact 122.2 pg/mL (8.7-77.1)
[2023-11-21 15:45] LABS: Anion Gap 17 (12-20); Blood Urea Nitrogen 74 mg/dL (9-16); Calcium 9.3 mg/dL (8.4-10.2); Carbon Dioxide 26 mmol/L (22-29); Chloride 103 mmol/L (96-108); Estimated Glomerular Filt Rate 18; Iron 69 mcg/dL (30-160); Percent Iron Saturation 43 % (15-50); Phosphorus 3.9 mg/dL (2.7-4.5); Potassium 4.5 mmol/L (3.3-5.1); Sodium 141 mmol/L (135-145); Total Iron Binding Capacity 161 mcg/dL (228-428); Unsaturated Iron Binding 92 ug/dL
[2023-11-21 16:01] LABS: Ferritin 374 ng/mL (10-250)
== END 2023-11-21 14:19 | disposition home or self-care (01) ==
LOC: HO.LAB 14:18
PROVIDERS: PCP Pediatrics; Visit Provider Internal Medicine Nephrology
DX: E11.22 Type 2 diabetes mellitus with diabetic chronic kidney disease (principal); D63.1 Anemia in chronic kidney disease; N18.32 Chronic kidney disease, stage 3b; E61.1 Iron deficiency
CPT/HCPCS: 36415; 80051; 82310; 82565; 82728; 83540; 83970; 84100; 84520; 85027

== ENCOUNTER 2023-11-26 15:47 | Outpatient (REF) | payer OTHER, SELFPAY ==
[2023-11-26 16:24] LABS: Appearance Urine Clear; Color Urine Yellow; Glucose Urine UA Negative (Negative); Leukocyte Esterase Urine Small (1+) (Negative); Nitrite Urine Negative (Negative); PH 6.5 (5.0-9.0); UMIC TRIGGER UA YES; Urine Blood Negative (Negative); Urine Ketones Negative (Negative); Urine Protein Negative (Neg-Trace)
[2023-11-26 16:34] LABS: Creatinine Urine 40.62 mg/dL; Total Protein Urine Random < 7 mg/dL (<12)
[2023-11-26 16:39] LABS: Bacteria Urine None Seen (None Seen); Hyaline Casts Urine 0-2 /LPF (0-2); RBC Urine 0-2 /HPF (0-2); WBC Urine 0-5 /HPF (0-5)
== END 2023-11-26 15:48 | disposition home or self-care (01) ==
LOC: HO.LNP 15:47
PROVIDERS: Visit Provider Internal Medicine Nephrology
DX: E11.22 Type 2 diabetes mellitus with diabetic chronic kidney disease (principal); N18.32 Chronic kidney disease, stage 3b; D63.1 Anemia in chronic kidney disease; E61.1 Iron deficiency
CPT/HCPCS: 81001; 82570; 84156

== ENCOUNTER 2023-12-02 15:08 | Outpatient (AMB) | payer OTHER, SELFPAY ==
--- NOTE | 2023-12-02 15:14 | A.OFFVIS_ITS ---
Intake Vital Signs 12/02/23 15:15 Height 5 ft 1 in Weight 162 lb 11.218 oz BMI 30.7 BP 166/70 H Blood Pressure Location Rt brachial Position Sitting Pulse 72 Pulse Source Pulse Oximeter Intake Visit Reasons: chronic gastritis w/o hemorrhage Intake Note: Pt presents to the office today for chronic gastritis w/o hemorrage. Pts daughter states she has been having issues with stomach pain, nausea, vomiting, and diarrhea for years. Allergies faviola [FAVIOLA] Adverse Reaction (Intermediate, Verified 12/02/23 15:17) NAUSEA & VOMITING Penicillins [PENICILLINS] Adverse Reaction (Unknown, Verified 12/02/23 15:17) NAUSEA & VOMITING [facility] Allergy (Unknown, Uncoded 12/02/23 15:17) NAUSEA & VOMITING SARDINES Adverse Reaction (Intermediate, Uncoded 12/02/23 15:17) NAUSEA & VOMITING HPI chronic gastritis w/o hemorrhage HPI Details 77-year-old female with past medical his tory of chronic diastolic heart failure, ANKIT, asthma, pulmonary hypertension, anemia, PAF, cardiomyopathy, CKD, diabetes is here today for initial consultation. Patient was sent to us by her PCP for ongoing GI symptoms that are getting worse. Patient reports to for epigastric discomfort postprandially. Patient reports feeling nauseous occasionally no vomiting. Patient is taking Dexilant at bedtime and reports that she continues to have symptoms. Patient used to take Nexium as well as pantoprazole. Patient does not remember if it worked or not. Patient is having these symptoms for few years. Patient reports coming from [place] about a year ago or so, however she states that she has had these symptoms before coming here. Patient reports that she has postprandial diarrhea, however she does not feel like she empties her bowels completely. Patient denies any melena, hematochezia, unintentional weight loss or ribbon like stools. Patient mostly eats [place] food is not on any particular diet. Patient is not eating much of fiber. Patient continues to have worsening kidney function. 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 Patient also has cardiomyopathy with chronic diastolic heart failure and pulmonary hypertension. Patient had colonoscopy about 5 years ago or so in [facility]. Will ask for report. [facility] Medical History Chest discomfort Shortness of breath ANKIT (obstructive sleep apnea) Asthma Pulmonary hypertension Vasovagal syncope Type 2 diabetes mellitus with unspecified complications Essential hypertension PAF (paroxysmal atrial fibrillation) Cardiomyopathy Surgical History No pertinent past surgical history Family History Father No problems noted. Mother No problems noted. Social History Alcohol intake: never Patient Tobacco Use Status: Never used Tobacco Review of Systems Const Denies weight gain and Denies weight loss ENT Reports no additional complaints, Denies dysphagia and Denies odynophagia Card Reports no additional complaints Resp Reports no additional complaints GI Reports abdominal pain (epigastric), Denies belching, Denies melena, Reports bloating, Denies change in bowel habits, Reports constipation, Denies dysphagia, Denies excessive flatus, Reports dyspepsia, Reports heartburn, Denies diarrhea, Reports loose stools, Denies nausea, Denies odynophagia and Denies vomiting Reports no additional complaints Musc Reports no additional complaints Neuro Reports no additional complaints Psych Reports no additional complaints Endo Reports no additional complaints Physical Exam Vital Signs: Last Vital Signs Pulse 72 12/02/23 15:15 BP 166/70 H 12/02/23 15:15 BMI result Body Mass Index 30.7 Const General: healthy appearing, no acute distress and well developed Nutritional Appearance: obese Orientation/consciousness: patient oriented x3 Resp Effort & Inspection: normal respiratory effort, able to speak in complete sentences, no tracheal deviation and symmetric chest movement Auscultation: clear to auscultation bilaterally Cardio Rate: regular rate GI Inspection: Yes normal to inspection, No distended and Yes obesity Palpation (GI): Soft to palpation, not firm, nontender and No hepatosplenomegaly present Auscultation: normal bowel sounds General: Yes no CVA tenderness Back/Spine/Pelvis Back: no CVA tenderness Skin General skin exam: elasticity normal, turgor normal and dry skin Neuro General: patient oriented x3 Psych Appearance: grossly normal Mental Status: mental status grossly normal Assessment & Plan Assessment & Plan (1) Postprandial epigastric pain: Code(s): R10.13 - Epigastric pain (2) GERD (gastroesophageal reflux disease): Code(s): K21.9 - Gastro-esophageal reflux disease without esophagitis Qualifiers: Esophagitis presence: esophagitis presence not specified Qualified Code(s): K21.9 - Gastro-esophageal reflux disease without esophagitis (3) IBS (irritable bowel syndrome): Code(s): K58.9 - Irritable bowel syndrome without diarrhea Qualifiers: Irritable bowel syndrome type: with both diarrhea and constipation Qualified Code(s): K58.2 - Mixed irritable bowel syndrome Plan Patient will start taking pantoprazole in the morning and sucralfate at bedtime. Patient was encouraged to avoid dietary triggers and late night snacking. Staying upright for minimum 3 hours after meals discussed with patient. Will check for H pylori, transglutaminase and lipase. We will rule out pancreatic insufficiency. Patient will be sent for abdominal ultrasound. Patient does reports right upper quadrant and left upper quadrant pain. Patient will take Citrucel to help her bulk her stools. I will see patient in 3 weeks, sooner on as needed basis. We will get the records from [facility] last colonoscopy. Patient has lot of comorbidities and we will hold off on sending her for procedure at this time. We will re-evaluate and discussed with patient and her daughter next visit. Both patient and her daughter are agreeable to plan of care and verbalizes understanding of instructions. They were given the opportunity to ask questions and all questions answered. Thank you for allowing me to participate in her care Orders: Orders H pylori Ag Stool Today K21.9 - Gastro-esophageal reflux disease without esophagitis Transglutaminase Ab IgG Today R10.9 - Unspecified abdominal pain TSH reflex Free T4 Today K59.00 - Constipation, unspecified Lipase Today R10.9 - Unspecified abdominal pain US abdomen complete Today R10.9 - Unspecified abdominal pain Pancreatic Elastase-1 Today R10.9 - Unspecified abdominal pain Transglutaminase IgA Today R10.9 - Unspecified abdominal pain Medications: New pantoprazole 40 mg PO DAILY 30 tabs 2RF methylcellulose (laxative) (Citrucel) 500 mg PO DAILY 30 tabs 2RF K59.00 - Constipation, unspecified sucralfate 1 g PO BEDTIME 30 tabs 4RF R19.7 - Diarrhea, unspecified Discontinued famotidine (Pepcid) Discontinued Reason: Doctor's Order 20 mg PO BID 10 days 20 tabs 0RF Patient Instructions: Deje de debbi Dexilant antes de acostarse. Comenzar? a debbi pantoprazol 40 mg media hora antes del desayuno. A la hora de acostarse puedes debbi sucralfato. Puedes triturar ralph medicamento y un poco de agua y beberlo maryann antes de ir a dormir. Despu?s del desayuno debbi Citrucel 500 mg con agua. Despu?s de la second mate, tome 2 comprimidos de sen cada noche. Coding Level of Care Code New Pt Level 4 (00537) Diagnoses Postprandial epigastric pain R10.13 Gastroesophageal reflux disease, unspecified whether esophagitis present K21.9 Esophagitis presence: esophagitis presence not specified Irritable bowel syndrome with both constipation and diarrhea K58.2 Irritable bowel syndrome type: with both diarrhea and constipation Time Spent (min) 45 Comment 30 minutes spent with patient and additional 15 minutes spent reviewing her records
[2023-12-02 15:15] VITALS: BP 166/70; PULSE 72; BMI 30.7
== END 2023-12-02 16:03 | disposition home or self-care (01) ==
PROVIDERS: PCP Pediatrics; Visit Provider Nurse Practitioner Family
DX: R10.13 Epigastric pain (principal); K21.9 Gastro-esophageal reflux disease without esophagitis; K58.2 Mixed irritable bowel syndrome
CPT/HCPCS: 99204

== ENCOUNTER → 2023-12-02 15:08 | Outpatient (BNVA) | payer OTHER, SELFPAY | PROVIDERS: PCP Pediatrics; Visit Provider Nurse Practitioner Family | DX: R10.13 Epigastric pain (principal); K21.9 Gastro-esophageal reflux disease without esophagitis; K58.2 Mixed irritable bowel syndrome | CPT/HCPCS: 99202 ==

== ENCOUNTER 2023-12-04 13:50 | Outpatient (REF) | payer OTHER, SELFPAY ==
[2023-12-04 16:11] LABS: Lipase 31 U/L (8-78)
[2023-12-04 16:29] LABS: Free T4 (Free Thyroxine) 1.26 ng/dL (0.71-1.85); Thyroid Stimulating Hormone 1.35 uIU/mL (0.32-4.0)
[2023-12-05 14:08] LABS: Transglutaminase Ab IgG <1.0 U/mL; Transglutaminase IgA <1.0 U/mL
== END 2023-12-04 13:51 | disposition home or self-care (01) ==
LOC: HO.LAB 13:50
PROVIDERS: Absent Provider Nurse Practitioner Family; PCP Pediatrics; Visit Provider Nurse Practitioner Family
DX: R10.9 Unspecified abdominal pain (principal); K59.00 Constipation, unspecified; I27.20 Pulmonary hypertension, unspecified; I48.0 Paroxysmal atrial fibrillation; I42.9 Cardiomyopathy, unspecified; I11.0 Hypertensive heart disease with heart failure; I50.32 Chronic diastolic (congestive) heart failure; G47.33 Obstructive sleep apnea (adult) (pediatric); Z79.899 Other long term (current) drug therapy
CPT/HCPCS: 36415; 83690; 84439; 84443; 86364; 93005; 99212

== ENCOUNTER 2023-12-04 13:50 | Outpatient (AMB) | payer OTHER, SELFPAY ==
[2023-12-04 13:53] VITALS: BP 140/68; PULSE 79; BMI 31.2
--- NOTE | 2023-12-04 13:53 | A.OFFVIS_ITS ---
Intake Vital Signs 12/04/23 13:53 Height 5 ft 1 in Weight 165 lb 5.547 oz BMI 31.2 BP 140/68 H Blood Pressure Location Lt brachial Position Sitting Pulse 79 Pulse Source Pulse Oximeter Intake Visit Reasons: 4 mth f/up Hydraulic Plumber Helper Required: Yes Hydraulic Plumber Helper Language: Blind Eyeletter Name: dyllan delarosa [id number] Signaling Design Engineer: Signaling Design Engineer Present Allergies faviola [FAVIOLA] Adverse Reaction (Intermediate, Verified 12/04/23 13:57) NAUSEA & VOMITING Penicillins [PENICILLINS] Adverse Reaction (Unknown, Verified 12/04/23 13:57) NAUSEA & VOMITING [facility] Allergy (Unknown, Uncoded 12/04/23 13:57) NAUSEA & VOMITING SARDINES Adverse Reaction (Intermediate, Uncoded 12/04/23 13:57) NAUSEA & VOMITING Medication List - Last Reconciled 12/04/23 by Rebeca Ortiz CHAINSTITCH TUNNEL ELASTIC OPERATOR-C acetaminophen-codeine 300-30 mg 1 tab PO DAILY PRN albuterol sulfate 90 mcg/actuation (Ventolin HFA) 2 puffs inhalation Q4H PRN albuterol sulfate 2.5 mg (3 mL) inhalation Q4H PRN alendronate 70 mg PO QWEEK amlodipine 10 mg PO DAILY ammonium lactate 12% 1 appl topical DAILY apixaban (Eliquis) 5 mg PO BID atorvastatin 40 mg PO BEDTIME candesartan 16 mg PO DAILY 90 days cholecalciferol (vitamin D3) 50 mcg PO DAILY cholecalciferol (vitamin D3) 50 mcg PO DAILY docusate sodium 100 mg PO BID PRN duloxetine 60 mg PO DAILY ferrous sulfate 325 mg PO TID fluticasone propionate 220 mcg/actuation (Flovent HFA) 2 puffs inhalation BID [id number]-kymqbgdgu-jysvvalq 100-62.5-25 mcg (Trelegy Ellipta) 1 inh inhalation DAILY 30 days furosemide 40 mg PO DAILY furosemide (Lasix) 20 mg PO DAILY PRN 14 days gabapentin 100 mg PO DAILY glipizide 10 mg PO BID hydralazine 50 mg PO TID 90 days inhalational spacing device (Vortex Holding Chamber) As directed lidocaine-prilocaine 2.5-2.5 % 2.5 grams topical DAILY meclizine 25 mg PO DAILY PRN metformin 1,000 mg PO BID methylcellulose (laxative) (Citrucel) 500 mg PO DAILY metoprolol tartrate 50 mg PO BID 90 days nebulizers As directed omega 8-ood-ase-fish oil 300 mg (120 mg- 180mg)-1,000 mg caps PO omega-3 fatty acids-fish oil 340-1,000 mg 1 cap PO BID pantoprazole 40 mg PO DAILY peg [id number]-xltvnvpk 1-0.2-0.2 % (Artificial Tears ([id number])) drps ophthalmic (eye) sildenafil (pulm.hypertension) 20 mg PO TID 90 days simethicone 180 mg PO TID PRN sucralfate 1 g PO BEDTIME HPI 4 mth f/up HPI Details Belen is a 77-year-old female with past medical history of diabetes, pulmonary hypertension, paroxysmal atrial fibrillation, cardiomyopathy, diastolic heart failure, obstructive sleep apnea who presents for follow-up. Today she reports that she has been experiencing much fatigue. She is actually falling asleep at this visit. Her daughter is present tells me she has not been wearing her CPAP mask consistently. She does not like the way it fits. She does have shortness of breath with activity which is not new. She does follow with pulmonology. She does have some intermittent epigastric discomfort and she describes a pain in the chest that occurs randomly. She is mostly sedentary. No PND, orthopnea or edema. No palpitations, presyncope, syncope, falls. Taking meds as directed. Certified pyrometer operator used. [facility] Medical History Chest discomfort Shortness of breath ANKIT (obstructive sleep apnea) Asthma Pulmonary hypertension Vasovagal syncope Type 2 diabetes mellitus with unspecified complications Essential hypertension PAF (paroxysmal atrial fibrillation) Cardiomyopathy Surgical History No pertinent past surgical history Family History Father No problems noted. Mother No problems noted. Social History Alcohol intake: never Patient Tobacco Use Status: Never used Tobacco Review of Systems Const All systems reviewed & are unremarkable except as noted in HPI and below ENT Denies dizziness Card Reports chest pain, Denies chest pain at rest, Denies chest pain with activity, Denies rapid heart rate, Denies pedal edema, Denies edema, Denies leg edema, Denies lightheadedness, Denies palpitations, Reports dyspnea, Reports dyspnea on exertion and Denies orthopnea Resp Denies cough, Reports dyspnea and Reports dyspnea on exertion GI Denies hematochezia and Denies change in stool character Musc Denies abnormal gait, Denies limited range of motion, Denies muscle cramps, Denies muscle weakness, Denies numbness, Denies radiating pain into limb, Denies stiffness and Denies tingling Neuro Denies abnormal gait, Denies dizziness, Denies numbness and Denies tingling Endo Denies palpitations Physical Exam Vital Signs: Last Vital Signs Pulse 79 12/04/23 13:53 BP 140/68 H 12/04/23 13:53 BMI result Body Mass Index 31.2 Const General: cooperative, healthy appearing, comfortable and no acute distress Orientation/consciousness: patient oriented x3 Neck Neck: Yes normal visual inspection Resp Effort & Inspection: normal respiratory effort Auscultation: clear to auscultation bilaterally, no crackles, no rales, no rhonchi and no wheezes Cardio Jugular venous distension: no JVD Rate: regular rate Rhythm: regular rhythm Heart sounds: S1 normal heart sound present, S2 normal heart sound present, no murmurs and no rubs Neuro General: patient oriented x3 Extrem General: Yes normal to inspection, No no pedal edema and No calf tenderness Psych Appearance: grossly normal Mental Status: mental status grossly normal Speech and movement: Normal speech and movement present Office Procedures EKG Details: Today, read by me, normal sinus rhythm, no acute ST or T-wave abnormalities, rate 72, QTC 455 milliseconds [id number], Complete Assessment & Plan Assessment & Plan (1) Chronic diastolic (congestive) heart failure: Code(s): I50.32 - Chronic diastolic (congestive) heart failure Plan: History of diastolic heart failure. Last echocardiogram done 01/29/2023 showed normal EF, 55% with grade 2 diastolic dysfunction, basal inferior hypokinetic. Nuclear stress test done 03/13/2022 showed normal myocardial perfusion imaging. Today she reports shortness of breath with activity which is not new. She also has chronic pain which causes her breathing to be shallow and random discomfort in the chest. She follows with Dr. Johnson for pulmonology. She has known pulmonary hypertension. No evidence of fluid overloaded on examination. EKG done today showing normal sinus rhythm with no acute ST or T-wave abnormalities, rate 72. Instructed to call if chest discomfort is occurring with activity or worsens. Nuclear stress test could be repeated at that time. Overall sounds atypical for angina. She will continue on current Lasix. Signs and symptoms of heart failure reviewed with her and daughter. Cardiology follow-up in 4 months, sooner if needed (2) Shortness of breath: Code(s): R06.02 - Shortness of breath Plan: As above (3) PAF (paroxysmal atrial fibrillation): Code(s): I48.0 - Paroxysmal atrial fibrillation Plan: History of paroxysmal atrial fibrillation. No reports of heart palpitations in recent months. EKG today confirms sinus rhythm, rate 72. She is on metoprolol for heart rate control. She is on Eliquis for anticoagulation. Labs done 11/21/2023 shows creatinine 2.56, hematocrit 32.6. She has a known history of chronic kidney disease. For her age and weight the Eliquis dose of 5 mg b.i.d. is appropriate. She is reported to have dementia. She ambulates with a walker. No recent falls reported. (4) Pulmonary hypertension: Code(s): I27.20 - Pulmonary hypertension, unspecified Plan: Following with Dr. Johnson (5) ANKIT (obstructive sleep apnea): Code(s): G47.33 - Obstructive sleep apnea (adult) (pediatric) Plan: Moderate to severe obstructive sleep apnea. She tells me she has not been wearing her mask consistently. I do see her falling asleep at this visit. She is reporting much fatigue in the daytime. She currently has a nasal mask and does not like the way it fits. Will forward this message to Dr. Johnson for his review. (6) Essential hypertension: Code(s): I10 - Essential (primary) hypertension Plan: Blood pressure initially 140/68, recheck done by me 120/52. Continue current meds without change. (7) Chest discomfort: Code(s): R07.89 - Other chest pain Plan: Atypical sounding chest discomfort previously reported and again reported today. EKG done today is normal. Also reporting epigastric area discomfort. Previously determined to have GERD and has been evaluated by GI. She has no known history of CAD. Echocardiogram does mention basal inferior hypokinesis. Nuclear stress test last year was normal. Her current symptom does not sound anginal. Signs and symptoms of angina reviewed with her and daughter. If symptoms change, worsen then nuclear stress test can be repeated. Emergency care if needed for symptoms. Continue atorvastatin, metoprolol, amlodipine. Plan Time spent on chart review, documentation, interview and assessment Coding Level of Care Code Est Pt Level 4 (02589) Diagnoses Chronic diastolic (congestive) heart failure I50.32 Shortness of breath R06.02 PAF (paroxysmal atrial fibrillation) I48.0 Pulmonary hypertension I27.20 ANKIT (obstructive sleep apnea) G47.33 Essential hypertension I10 Chest discomfort R07.89 CPT Codes EKG - CPT: [id number], Complete ([id number]) Time Spent (min) 28
== END 2023-12-04 14:31 | disposition home or self-care (01) ==
PROVIDERS: PCP Pediatrics; Visit Provider Nurse Practitioner Family
DX: I50.32 Chronic diastolic (congestive) heart failure (principal); R06.02 Shortness of breath; I48.0 Paroxysmal atrial fibrillation; I27.20 Pulmonary hypertension, unspecified; G47.33 Obstructive sleep apnea (adult) (pediatric); I10 Essential (primary) hypertension; R07.89 Other chest pain
CPT/HCPCS: 93010; 99214

== ENCOUNTER 2023-12-12 11:37 | Outpatient (REF) | payer OTHER, SELFPAY ==
[2023-12-19 01:44] LABS: Pancreatic Elastase-1 66 mcg/g
== END 2023-12-12 11:38 | disposition home or self-care (01) ==
LOC: HO.LNP 11:37
PROVIDERS: Visit Provider Nurse Practitioner Family
DX: R10.9 Unspecified abdominal pain (principal); K21.9 Gastro-esophageal reflux disease without esophagitis
CPT/HCPCS: 82656; 87338

== ENCOUNTER 2023-12-17 08:17 | Outpatient (REF) | payer OTHER, SELFPAY ==
--- NOTE | ~2023-12-17 | US_ITS ---
EXAMINATION: US ABDOMEN COMPLETE CLINICAL INFORMATION: Unspecified abdominal pain. COMPARISON: CT abdomen and pelvis 08/04/2023. Ultrasound abdomen complete 05/04/2019. X-ray KUB 11/18/2018. MRI abdomen 02/26/2018. Renal ultrasound 02/04/2018. TECHNIQUE: Real-time imaging of the abdominal viscera. Limited visualization due to bowel gas. FINDINGS: PANCREAS: Limited visualization of pancreatic tail and head. Imaged portion of pancreatic body is unremarkable. ABDOMINAL AORTA: Nonaneurysmal. INFERIOR VENA CAVA: Visualized portions are normal. LIVER: Hepatomegaly, 17.9 cm. Increased hepatic parenchymal heterogeneity and echogenicity could be associated with hepatocellular disease/hepatic steatosis and substantially limits visualization. Correlation with liver function tests and clinical exam recommended to determine further management. GALLBLADDER: No gallbladder wall thickening. No gallstones. COMMON BILE DUCT: Normal in caliber measuring 0.5 cm in diameter. RIGHT KIDNEY: Increased renal echogenicity. No hydronephrosis. No renal calculi. Severely limited visualization. The kidney measures 8.6 cm in maximum dimension. LEFT KIDNEY: Increased renal echogenicity. No hydronephrosis. No renal calculi. Severely limited visualization. The kidney measures 9.6 cm in maximum dimension. SPLEEN: Normal. The spleen measures 7.4 cm in maximum dimension. FREE FLUID: None. US/US abdomen complete IMPRESSION: 1. Hepatomegaly, 17.9 cm. Increased hepatic parenchymal heterogeneity and echogenicity could be associated with hepatocellular disease/hepatic steatosis and substantially limits visualization. Correlation with liver function tests and clinical exam recommended to determine further management. 2. Bilateral increased renal echogenicity is characteristic of medical renal disease.
== END 2023-12-17 08:18 | disposition home or self-care (01) ==
LOC: HO.US 08:17
PROVIDERS: PCP Pediatrics; Visit Provider Nurse Practitioner Family
DX: R10.9 Unspecified abdominal pain (principal)
CPT/HCPCS: 76700

== ENCOUNTER 2023-12-31 11:50 | Outpatient (REF) | payer OTHER, SELFPAY ==
[2023-12-31 14:38] LABS: MANUAL DIFF FLAG NO
[2023-12-31 14:46] LABS: Basophils Percent Auto 0.4 % (0-2); Eosinophils Absolute Auto 0.4 X10*3/uL (0.0-0.4); Eosinophils Percent Auto 7.6 % (0-4); Hematocrit 32.6 % (37.0-47.0); Hemoglobin 10.2 g/dl (12.0-16.0); Imm Gran Abs Auto 0.02 X10*3/uL (0.00-0.03); Imm Gran Pct Auto 0.4 % (0.0-0.4); Lymphocytes Absolute Auto 1.1 X10*3/uL (1.2-4.9); Lymphocytes Percent Auto 22.7 % (20-40); Mean Corpuscular HGB Conc 31.3 g/dl (31.0-35.0); Mean Corpuscular Hemoglobin 30.7 pg (27.0-33.0); Mean Corpuscular Volume 98.2 fL (80.0-98.0); Mean Platelet Volume 11.6 fL (9.4-12.3); Monocytes Absolute Auto 0.4 X10*3/uL (0.1-1.2); Neutrophils Percent Auto 60.9 % (45-73); Platelet Count 211 X10*3/uL (160-400); Red Blood Count 3.32 X10*6/uL (4.20-5.50); Red Cell Distribution Width 13.5 % (11.0-16.0)
[2023-12-31 15:10] LABS: Alanine Aminotransferase 6 U/L (0-31); Albumin Level 3.9 g/dL (3.5-5.0); Alkaline Phosphatase 25 U/L (39-117); Anion Gap 17 (12-20); Aspartate Amino Transferase 11 U/L (5-31); Bilirubin Direct 0.1 mg/dL (0.0-0.5); Bilirubin Total 0.3 mg/dL (0.0-1.0); Blood Urea Nitrogen 64 mg/dL (9-16); Calcium 8.9 mg/dL (8.4-10.2); Carbon Dioxide 24 mmol/L (22-29); Chloride 107 mmol/L (96-108); Estimated Glomerular Filt Rate 21; Glucose Fasting 119 mg/dL (60-99); Potassium 4.4 mmol/L (3.3-5.1); Sodium 144 mmol/L (135-145); Total Protein 6.8 g/dL (6.5-8.0)
== END 2023-12-31 11:51 | disposition home or self-care (01) ==
LOC: HO.CHCLDS 11:50
PROVIDERS: Visit Provider Pediatrics
DX: R17 Unspecified jaundice (principal)
CPT/HCPCS: 36415; 80048; 80076; 85025

== ENCOUNTER 2024-01-01 14:02 | Outpatient (AMB) | payer OTHER, SELFPAY ==
[2024-01-01 14:07] VITALS: BMI 32.0
--- NOTE | 2024-01-01 14:07 | MHC.OFFVIS ---
Vital Signs 01/01/24 14:07 Height 5 ft 1 in Weight 169 lb 5.04 oz BMI 32.0 Intake Visit Reasons: 3 week follow up GERD, abd. pain Intake Note: Patient in office today in follow up of labs and US. CC: Patient's daughter states that Pt's PCP d/c'd the pantoprazole yesterday because the patient's skin was getting yellowish. PCP recommended to find medications that do not affect PT's kidneys or pancreas. She states that Belen's kidney function is on a 10%. Patient c/o really bad acid reflux . Manager Of Financial Required: Yes Accompanied by: Daughter Allergies faviola [FAVIOLA] Adverse Reaction (Intermediate, Verified 01/01/24 14:13) NAUSEA & VOMITING Penicillins [PENICILLINS] Adverse Reaction (Unknown, Verified 01/01/24 14:13) NAUSEA & VOMITING [facility] Allergy (Unknown, Uncoded 12/04/23 13:57) NAUSEA & VOMITING SARDINES Adverse Reaction (Intermediate, Uncoded 12/04/23 13:57) NAUSEA & VOMITING HPI HPI 3 week follow up GERD, abd. pain: Details: LAST VISIT Postprandial epigastric pain GERD (gastroesophageal reflux disease) IBS (irritable bowel syndrome) Plan Patient will start taking pantoprazole in the morning and sucralfate at bedtime. Patient was encouraged to avoid dietary triggers and late night snacking. Staying upright for minimum 3 hours after meals discussed with patient. Will check for H pylori, transglutaminase and lipase. We will rule out pancreatic insufficiency. Patient will be sent for abdominal ultrasound. Patient does reports right upper quadrant and left upper quadrant pain. Patient will take Citrucel to help her bulk her stools. I will see patient in 3 weeks, sooner on as needed basis. We will get the records from [facility] last colonoscopy. Patient has lot of comorbidities and we will hold off on sending her for procedure at this time. We will re-evaluate and discussed with patient and her daughter next visit. Both patient and her daughter are agreeable to plan of care and verbalizes understanding of instructions. They were given the opportunity to ask questions and all questions answered. ? Thank you for allowing me to participate in her care Orders Orders H pylori Ag Stool Today K21.9 Transglutaminase Ab IgG Today R10.9 TSH reflex Free T4 Today K59.00 Lipase Today R10.9 US abdomen complete Today R10.9 Pancreatic Elastase-1 Today R10.9 Transglutaminase IgA Today R10.9 Medications New pantoprazole 40 mg PO DAILY 30 tabs 2RF methylcellulose (laxative) (Citrucel) 500 mg PO DAILY 30 tabs 2RF K59.00 sucralfate 1 g PO BEDTIME 30 tabs 4RF R19.7 Discontinued famotidine (Pepcid) Discontinued Reason: Doctor's Order 20 mg PO BID 10 days 20 tabs 0RF TODAY'S VISIT Patient is here today for follow-up and to discuss lab results. Patient had normal lipase and normal liver function tests. Abdominal ultrasound showed increased echogenicity of the liver as well as bilateral kidney. CKD and pantoprazole was stopped. Patient continues to have epigastric discomfort postprandially. Reports postprandial abdominal bloating. Pancreatic insufficiency found and patient was started on enzymes. Will increase enzymes today as patient reports that she is tolerating them and reports that her symptoms are better specially after eating. Patient denies any nausea or vomiting. Denies any dyspepsia, dysphagia or odynophagia. Denies melena, hematochezia, unintentional weight loss or ribbon like stools. [facility] Medical History (Updated 01/12/24 @ 21:17 by Nani Elkins [facility]) Exocrine pancreatic insufficiency Chest discomfort Shortness of breath ANKIT (obstructive sleep apnea) Asthma Pulmonary hypertension Vasovagal syncope Type 2 diabetes mellitus with unspecified complications Essential hypertension PAF (paroxysmal atrial fibrillation) Cardiomyopathy Surgical History No pertinent past surgical history Family History Father No problems noted. Mother No problems noted. Social History Alcohol intake: never Patient Tobacco Use Status: Never used Tobacco Review of Systems Const Denies weight gain and Denies weight loss ENT Reports no additional complaints, Denies dysphagia and Denies odynophagia Card Reports no additional complaints Resp Reports no additional complaints GI Reports abdominal pain (epigastric), Reports belching, Denies melena, Reports bloating, Denies change in bowel habits, Denies dysphagia, Denies excessive flatus, Denies dyspepsia, Reports heartburn, Denies diarrhea, Denies loose stools, Reports nausea, Denies odynophagia and Denies vomiting Reports no additional complaints Musc Reports no additional complaints Neuro Reports no additional complaints Psych Reports no additional complaints Endo Reports no additional complaints Physical Exam Vital Signs: BMI result Body Mass Index 32.0 Const General: healthy appearing, no acute distress and well developed Nutritional Appearance: obese Orientation/consciousness: patient oriented x3 Resp Effort & Inspection: normal respiratory effort, able to speak in complete sentences, no tracheal deviation and symmetric chest movement Auscultation: clear to auscultation bilaterally Cardio Rate: regular rate GI Inspection: Yes normal to inspection, No distended and Yes obesity Palpation (GI): Soft to palpation, not firm, nontender and No hepatosplenomegaly present Auscultation: normal bowel sounds General: Yes no CVA tenderness Back/Spine/Pelvis Back: no CVA tenderness Skin General skin exam: elasticity normal, turgor normal and dry skin Neuro General: patient oriented x3 Psych Appearance: grossly normal Mental Status: mental status grossly normal Results Reviewed Results Reviewed: Laboratory Tests 12/04/23 12/12/23 15:24 10:00 Lipase 31 TSH 1.35 Free T4 1.26 Stool Pancreat Elastase 66 L Assessment & Plan Assessment & Plan (1) Exocrine pancreatic insufficiency: Code(s): K86.81 - Exocrine pancreatic insufficiency Category: Medical (2) Postprandial epigastric pain: Code(s): R10.13 - Epigastric pain (3) GERD (gastroesophageal reflux disease): Code(s): K21.9 - Gastro-esophageal reflux disease without esophagitis Qualifiers: Esophagitis presence: esophagitis presence not specified Qualified Code(s): K21.9 - Gastro-esophageal reflux disease without esophagitis (4) IBS (irritable bowel syndrome): Code(s): K58.9 - Irritable bowel syndrome without diarrhea Qualifiers: Irritable bowel syndrome type: without diarrhea Qualified Code(s): K58.9 - Irritable bowel syndrome without diarrhea Plan Continue avoiding dietary triggers. Continue avoiding late night snacking. Staying upright for minimum 3 hours after meals discussed with patient. Will increase Creon and patient is to take with meals. Meds reviewed with patient and her daughter. Patient's daughter believes that she is no longer taking alendronate if she is patient should probably stop taking it and start alternative treatment for osteoporosis. Please request colonoscopy report from [facility]. I will see patient in 4 weeks, sooner on as needed basis. Patient is agreeable to this plan and verbalizes understanding of instructions. She was given the opportunity to ask questions and all questions answered. Thank you for allowing me to participate in her care Medications: New csohvx-yxwlzyjr-[id number] 36,000-114,000- 180,000 unit (Creon) administer with meals and/or snacks 1 cap PO QID 120 caps 3RF K86.89 - Other specified diseases of pancreas
== END 2024-01-01 15:17 | disposition home or self-care (01) ==
PROVIDERS: PCP Pediatrics; Visit Provider Nurse Practitioner Family
DX: K86.81 Exocrine pancreatic insufficiency (principal); R10.13 Epigastric pain; K21.9 Gastro-esophageal reflux disease without esophagitis; K58.9 Irritable bowel syndrome, unspecified
CPT/HCPCS: 99214

== ENCOUNTER → 2024-01-01 14:02 | Outpatient (BNVA) | payer OTHER, SELFPAY | PROVIDERS: PCP Pediatrics; Visit Provider Nurse Practitioner Family | DX: K86.81 Exocrine pancreatic insufficiency (principal); K21.9 Gastro-esophageal reflux disease without esophagitis; K58.9 Irritable bowel syndrome, unspecified; R10.13 Epigastric pain | CPT/HCPCS: 99212 ==

== ENCOUNTER 2024-02-09 14:09 | Outpatient (AMB) | payer OTHER, SELFPAY ==
--- NOTE | 2024-02-09 14:16 | A.OFFVIS_ITS ---
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 She continues to have significant shortness of breath. Moderate to severe. Today she did come in with her daughter but we did have to get her wheelchair to go back to the car because her shortness of breath. The patient also feels very fatigued. She has daytime drowsiness and sleeps throughout the day. She typically sleeps on the sofa because she feels she is more comfortable when she is has not choked up so much. Her [place] score is elevated . The patient has not had a sleep study. Will have to request a home sleep study at this time. In the meantime the patient had an echocardiogram and I did review the family. It appears that she has a severely dilated right ventricle and severe pulmonary hypertension. In part this is likely due to her diastolic dysfunction. However, additional testing is warranted. Will go ahead and request blood work in addition to a V/Q scan to r ule out thromboembolic disease and also a sleep study. the patient does take Eliquis for anticoagulation. However, chronic thromboembolic disease is still in differential. 08/08/2023 the patient is here for a pulmonary follow-up visit. The patient is very groggy this morning. Her daughter's states that she is been sleeping a lot during the daytime. The patient feels tired right now. She has been using her respiratory medications. In addition to that she has been using her positive airway pressure therapy. She is reluctant to use it but her daughter helps her with the and she does use it for more than 4 hours a night. She continues with diuresis. Will go ahead and request additional blood work in addition to a blood gas to assess her CO2 to make sure that she is not developing hypercapnia. 02/09/2024 the patient is here for a pulmonary follow-up visit. She is complaining of significant sinus congestion and nasal congestion. She has a hard time using her CPAP because of the significant sinus and nasal passage obstruction. She has been sick now for about 3 days. The patient also has been having significant allergies. She has been taking allergy medications [id number]. She also has diabetes so therefore prednisone it is difficult for her to tolerate. I did provide her with a different mask see if she did tolerate the CPAP a little better once her nasal congestion this better, N30i small. Hopefully she tolerates this better. In addition to that patient be using the Afrin nasal spray. 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 She can also start doxycycline to treat her for sinusitis. [facility] Medical History (Updated 02/09/24 @ 23:01 by Alexandre Johnson MD) Exocrine pancreatic insufficiency Chest discomfort Shortness of breath ANKIT (obstructive sleep apnea) Asthma Pulmonary hypertension Vasovagal syncope Type 2 diabetes mellitus with unspecified complications Essential hypertension PAF (paroxysmal atrial fibrillation) Cardiomyopathy Surgical History No pertinent past surgical history Family History Father No problems noted. Mother No problems noted. Social History Alcohol intake: never Patient Tobacco Use Status: Never used Tobacco Review of Systems Const Denies chills, Reports daytime sleepiness, Reports fatigue, Denies fever(s), Denies frequent falls and Reports weakness ENT Denies dizziness, Reports nasal congestion, Reports nasal discharge, Reports nasal obstruction and Reports sinus pressure Card Denies chest pain, Denies leg edema, Denies lightheadedness, Denies palpitations, Reports dyspnea on exertion, Reports orthopnea and Denies other (Loss of consciousness) Resp Denies cough and Reports dyspnea on exertion GI Denies hematochezia and Denies change in bowel habits Musc Reports abnormal gait, Denies muscle weakness, Denies numbness, Denies radiating pain into limb and Denies tingling Neuro Reports abnormal gait, Denies dizziness, Denies frequent falls, Denies numbness, Denies tingling and Reports weakness Endo Reports fatigue and Denies palpitations Physical Exam Vital Signs: Last Vital Signs Pulse 71 02/09/24 14:21 Pulse Ox 97 02/09/24 14:21 Oxygen Delivery Method Room Air 02/09/24 14:21 BMI result Body Mass Index 31.2 Const General: comfortable and tired appearing Orientation/consciousness: patient oriented x3 HEENT Other: Unremarkable Head: Yes normal to inspection Eyes General: appearance normal, both eyes and all related structures Neck Neck: Yes normal visual inspection Chest Chest palpation & inspection: normal inspection of the chest Resp Effort & Inspection: normal respiratory effort Auscultation: no crackles, no wheezes and diminished lung sounds Cardio Jugular venous distension: no JVD Palpation: normal PMI Heart sounds: S1 normal heart sound present, S2 normal heart sound present, no gallops, no murmurs and no rubs GI Palpation (GI): Soft to palpation Back/Spine/Pelvis Other: unremarkable Skin General skin exam: no rashes or lesions noted Neuro General: patient oriented x3 Extrem General: Yes no clubbing, cyanosis or edema Psych Mental Status: mental status grossly normal Assessment & Plan Assessment & Plan (1) Pulmonary hypertension: Code(s): I27.20 - Pulmonary hypertension, unspecified Category: Medical (2) ANKIT (obstructive sleep apnea): Code(s): G47.33 - Obstructive sleep apnea (adult) (pediatric) Category: Medical (3) Asthma: Code(s): J45.909 - Unspecified asthma, uncomplicated Category: Medical Qualifiers: Asthma complication type: uncomplicated Asthma persistence: persistent Asthma severity: moderate Qualified Code(s): J45.40 - Moderate persistent asthma, uncomplicated (4) Shortness of breath: Code(s): R06.02 - Shortness of breath Category: Medical (5) Sinusitis: Code(s): J32.9 - Chronic sinusitis, unspecified Category: Medical Qualifiers: Sinusitis location: other Chronicity: subacute Qualified Code(s): J01.80 - Other acute sinusitis Plan continue APAP, trial N30i mask continue Sildanefil continue diuresis as tolerated continue Trelegy 1 inhalation daily start Doxycycline Afrin x 3-5 days follow-up in 6-8 months Coding Level of Care Code Est Pt Level 4 (81464) Diagnoses Pulmonary hypertension I27.20 ANKIT (obstructive sleep apnea) G47.33 Moderate persistent asthma without complication J45.40 Asthma complication type: uncomplicated Asthma persistence: persistent Asthma severity: moderate Shortness of breath R06.02 Other subacute sinusitis J01.80 Sinusitis location: other Chronicity: subacute Time Spent (min) 17
[2024-02-09 14:21] VITALS: PULSE 71; O2SAT 97; BMI 31.2
== END 2024-02-09 14:37 | disposition home or self-care (01) ==
PROVIDERS: PCP Pediatrics; Visit Provider Hospitalist
DX: I27.20 Pulmonary hypertension, unspecified (principal); G47.33 Obstructive sleep apnea (adult) (pediatric); J45.40 Moderate persistent asthma, uncomplicated; R06.02 Shortness of breath; J01.80 Other acute sinusitis
CPT/HCPCS: 99214

== ENCOUNTER → 2024-02-09 14:09 | Outpatient (BNVA) | payer OTHER, SELFPAY | PROVIDERS: PCP Pediatrics; Visit Provider Hospitalist | DX: I27.20 Pulmonary hypertension, unspecified (principal); G47.33 Obstructive sleep apnea (adult) (pediatric); J45.40 Moderate persistent asthma, uncomplicated; R06.02 Shortness of breath; J01.80 Other acute sinusitis | CPT/HCPCS: 99212 ==

== ENCOUNTER 2024-03-16 15:10 | Outpatient (REF) | payer OTHER, SELFPAY ==
--- NOTE | ~2024-03-16 | XR_ITS ---
EXAMINATION: XR SHOULDER, RIGHT CLINICAL INFORMATION: Pain after falling COMPARISON: None available. TECHNIQUE: AP external rotation, Grashey, scapular Y, and axillary views of the right shoulder. FINDINGS: There is advanced degenerative change at the first AC joint and spurring along the undersurface of the acromion. No evidence though for fracture, dislocation or destructive process. XR/XR shoulder RT min 2V IMPRESSION: Degenerative changes observed. No fracture.
--- NOTE | ~2024-03-16 | XR_ITS ---
EXAMINATION: XR BILATERAL HIPS WITH AP PELVIS CLINICAL INFORMATION: Pain after falling COMPARISON: None available. TECHNIQUE: AP view of the pelvis and single views of each hip were obtained. FINDINGS: Pelvis intact. SI joints symmetric. Advanced degenerative change in the lumbar spine. The hips are intact. No fracture or destructive process. Productive calcification projects off of the right greater trochanter. There is acetabular subchondral cystic change in both hips right greater than left. Vascular calcifications are observed. XR/XR hip BI w PEL1V IMPRESSION: Multifocal arthritic change but no acute findings or fracture.
== END 2024-03-16 15:11 | disposition home or self-care (01) ==
LOC: HO.XRAY 15:10
PROVIDERS: PCP Pediatrics; Visit Provider Pediatrics
DX: M25.511 Pain in right shoulder (principal); M25.551 Pain in right hip; M25.552 Pain in left hip; Z91.81 History of falling
CPT/HCPCS: 73030; 73521

== ENCOUNTER 2024-03-17 15:00 | Outpatient (REF) | payer OTHER, SELFPAY ==
[2024-03-17 16:45] LABS: Ammonia 31 umol/L (13-55)
[2024-03-17 17:41] LABS: Hematocrit 33.5 % (37.0-47.0); Hemoglobin 10.9 g/dl (12.0-16.0); Mean Corpuscular HGB Conc 32.5 g/dl (31.0-35.0); Mean Corpuscular Hemoglobin 30.9 pg (27.0-33.0); Mean Corpuscular Volume 94.9 fL (80.0-98.0); Mean Platelet Volume 11.2 fL (9.4-12.3); Platelet Count 251 X10*3/uL (160-400); Red Blood Count 3.53 X10*6/uL (4.20-5.50); White Blood Count 5.8 X10*3/uL (4.8-10.8)
[2024-03-17 18:28] LABS: Alanine Aminotransferase 10 U/L (0-31); Albumin Level 3.9 g/dL (3.5-5.0); Alkaline Phosphatase 27 U/L (39-117); Anion Gap 20 (12-20); Aspartate Amino Transferase 23 U/L (5-31); Bilirubin Total 0.2 mg/dL (0.0-1.0); Blood Urea Nitrogen 71 mg/dL (9-16); Calcium 9.5 mg/dL (8.4-10.2); Carbon Dioxide 19 mmol/L (22-29); Chloride 105 mmol/L (96-108); Estimated Glomerular Filt Rate 15; Glucose Random 208 mg/dL (60-115); Iron 85 mcg/dL (30-160); Percent Iron Saturation 50 % (15-50); Potassium 5.9 mmol/L (3.3-5.1); Sodium 138 mmol/L (135-145); Total Iron Binding Capacity 170 mcg/dL (228-428); Total Protein 7.5 g/dL (6.5-8.0); Unsaturated Iron Binding 85 ug/dL
[2024-03-17 18:41] LABS: Ferritin 542 ng/mL (10-250)
== END 2024-03-17 15:01 | disposition home or self-care (01) ==
LOC: HO.LAB 15:00
PROVIDERS: PCP Pediatrics; Visit Provider Nurse Practitioner Family
DX: K21.9 Gastro-esophageal reflux disease without esophagitis (principal); K58.2 Mixed irritable bowel syndrome; R10.13 Epigastric pain; K86.81 Exocrine pancreatic insufficiency; N18.9 Chronic kidney disease, unspecified; R74.8 Abnormal levels of other serum enzymes; D64.9 Anemia, unspecified; R53.1 Weakness; R53.83 Other fatigue
CPT/HCPCS: 36415; 80053; 82140; 82728; 83540; 85027; 99212

== ENCOUNTER 2024-03-17 15:00 | Outpatient (AMB) | payer OTHER, SELFPAY ==
--- NOTE | 2024-03-17 15:04 | MHC.OFFVIS ---
Vital Signs 03/17/24 15:12 Height 5 ft 1 in Weight 163 lb 2.273 oz BMI 30.8 BP 134/62 Blood Pressure Location Rt brachial Position Sitting Pulse 76 Pulse Source Pulse Oximeter Pulse Oximetry (%) 97 Oxygen Delivery Method Room Air Intake Visit Reasons: 4 week follow up GERD, epigastric pain Intake Note: Belen presents in office today for a scheduled 4 week FUV. CC; Belen was rx'd Creon at her last visit. Pt had been taking the rx'd medication but has stopped because they did not feel that the medication was therapeutic for their sx. Pt has been having constant reflux and has noticed it has been slightly worse since her last visit. 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 Continue avoiding late night snacking. Staying upright for minimum 3 hours after meals discussed with patient. Will increase Creon and patient is to take with meals. Meds reviewed with patient and her daughter. Patient's daughter believes that she is no longer taking alendronate if she is patient should probably stop taking it and start alternative treatment for osteoporosis. Please request colonoscopy report from [facility]. I will see patient in 4 weeks, sooner on as needed basis. Patient is agreeable to this plan and verbalizes understanding of instructions. She was given the opportunity to ask questions and all questions answered. ? Thank you for allowing me to participate in her care Medications New mqffdt-uztknssk-mcdcfrg 36,000-114,000- 180,000 unit (Creon) administer with meals and/or snacks 1 cap PO QID 120 caps 3RF K86.89 TODAY'S VISIT: Patient is here today for follow-up. Patient reports that she started taking Creon, however she stopped it because she did feel like it was helping her. Patient reports that there was no change in her diet. She continue to eat same food. Patient reports postprandial epigastric pain and abdominal bloating. Patient states that she is moving her bowels better now that she is taking senna. Lab work from December showed high BUN and creatinine. Patient reports that she does not remember following up with Nephrology. Will send referral. Patient denies any nausea or vomiting. Denies any dyspepsia, dysphagia or odynophagia. Denies any melena, hematochezia, unintentional weight loss or ribbon like stools. [facility] Medical History Exocrine pancreatic insufficiency Chest discomfort Shortness of breath ANKIT (obstructive sleep apnea) Asthma Pulmonary hypertension Vasovagal syncope Type 2 diabetes mellitus with unspecified complications Essential hypertension PAF (paroxysmal atrial fibrillation) Cardiomyopathy Surgical History No pertinent past surgical history Family History Father No problems noted. Mother No problems noted. Social History Alcohol intake: never Patient Tobacco Use Status: Never used Tobacco Review of Systems Const Denies weight gain and Denies weight loss ENT Reports no additional complaints, Denies dysphagia and Denies odynophagia Card Reports no additional complaints Resp Reports no additional complaints GI Reports abdominal pain (epigastric), Denies belching, Denies melena, Reports bloating, Denies change in bowel habits, Denies dysphagia, Denies excessive flatus, Denies dyspepsia, Reports heartburn, Denies diarrhea, Denies loose stools, Denies nausea, Denies odynophagia and Denies vomiting Musc Reports no additional complaints Neuro Reports no additional complaints Psych Reports no additional complaints Endo Reports no additional complaints Physical Exam Vital Signs: Last Vital Signs Pulse 76 03/17/24 15:12 BP 134/62 03/17/24 15:12 Pulse Ox 97 03/17/24 15:12 Oxygen Delivery Method Room Air 03/17/24 15:12 BMI result Body Mass Index 30.8 Const General: healthy appearing, no acute distress and well developed Nutritional Appearance: obese Orientation/consciousness: patient oriented x3 Resp Effort & Inspection: normal respiratory effort, able to speak in complete sentences, no tracheal deviation and symmetric chest movement Auscultation: clear to auscultation bilaterally Cardio Rate: regular rate GI Inspection: Yes normal to inspection, No distended and Yes obesity Palpation (GI): Soft to palpation, not firm, nontender and No hepatosplenomegaly present Auscultation: normal bowel sounds General: Yes no CVA tenderness Back/Spine/Pelvis Back: no CVA tenderness Skin General skin exam: elasticity normal, turgor normal and dry skin Neuro General: patient oriented x3 Psych Appearance: grossly normal Mental Status: mental status grossly normal Assessment & Plan Assessment & Plan (1) Exocrine pancreatic insufficiency: Code(s): K86.81 - Exocrine pancreatic insufficiency Category: Medical (2) Postprandial epigastric pain: Code(s): R10.13 - Epigastric pain (3) GERD (gastroesophageal reflux disease): Code(s): K21.9 - Gastro-esophageal reflux disease without esophagitis Qualifiers: Esophagitis presence: esophagitis presence not specified Qualified Code(s): K21.9 - Gastro-esophageal reflux disease without esophagitis (4) IBS (irritable bowel syndrome): Code(s): K58.9 - Irritable bowel syndrome without diarrhea Qualifiers: Irritable bowel syndrome type: with both diarrhea and constipation Qualified Code(s): K58.2 - Mixed irritable bowel syndrome (5) CKD (chronic kidney disease): Code(s): N18.9 - Chronic kidney disease, unspecified Category: Medical Qualifiers: Chronic kidney disease stage: unspecified stage Qualified Code(s): N18.9 - Chronic kidney disease, unspecified Plan Referral to Nephrology. History of anemia, will repeat lab work, CBC, CMP, ferritin, iron profile. Patient was encouraged to avoid dietary triggers and late night snacking. Staying upright for minimum 3 hours discussed with patient. Patient will continue taking Creon before meals. Patient was taking the medication after meals. I will see patient in 4 weeks, sooner on as needed basis. Patient is agreeable to this plan and verbalizes understanding of instructions. She was given the opportunity to ask questions and all questions answered. Thank you for allowing me to participate in her care Orders: Orders Ferritin 03/17/24 R74.8 - Abnormal levels of other serum enzymes IRON PROFILE 03/17/24 D64.9 - Anemia, unspecified Complete Blood Count no Diff 03/17/24 K21.9 - Gastro-esophageal reflux disease without esophagitis Comprehensive Met. Panel 03/17/24 K21.9 - Gastro-esophageal reflux disease without esophagitis Ammonia 03/17/24 R53.1 - Weakness, R53.83 - Other fatigue Referrals Nephrology Referral N18.9 - Chronic kidney disease, unspecified Medications: Discontinued sucralfate Discontinued Reason: Duplicate 1 g PO BEDTIME 30 tabs 4RF R19.7 - Diarrhea, unspecified Coding Level of Care Code Est Pt Level 4 (70710) Diagnoses Exocrine pancreatic insufficiency K86.81 Postprandial epigastric pain R10.13 Gastroesophageal reflux disease, unspecified whether esophagitis present K21.9 Esophagitis presence: esophagitis presence not specified Irritable bowel syndrome with both constipation and diarrhea K58.2 Irritable bowel syndrome type: with both diarrhea and constipation Chronic kidney disease, unspecified CKD stage N18.9 Chronic kidney disease stage: unspecified stage Time Spent (min) 35 Comment 20 minutes spent with patient and additional 15 minutes spent reviewing her records
[2024-03-17 15:12] VITALS: BP 134/62; PULSE 76; O2SAT 97; BMI 30.8
== END 2024-03-17 16:03 | disposition home or self-care (01) ==
PROVIDERS: PCP Pediatrics; Visit Provider Nurse Practitioner Family
DX: K86.81 Exocrine pancreatic insufficiency (principal); R10.13 Epigastric pain; K21.9 Gastro-esophageal reflux disease without esophagitis; K58.2 Mixed irritable bowel syndrome; N18.9 Chronic kidney disease, unspecified
CPT/HCPCS: 99214

== ENCOUNTER 2024-03-29 15:51 | Outpatient (AMB) | payer OTHER, SELFPAY ==
[2024-03-29 15:55] VITALS: BP 132/62; PULSE 79; O2SAT 98; BMI 31.4
--- NOTE | 2024-03-29 15:55 | HO.NEPHOV ---
Vital Signs 03/29/24 15:55 Height 5 ft 1 in Weight 166 lb 2 oz BMI 31.4 BP 132/62 Blood Pressure Location Lt brachial Position Sitting Pulse 79 Pulse Source Pulse Oximeter Pulse Oximetry (%) 98 Oxygen Delivery Method Room Air Intake Visit Reasons: CKD Store Sales Manager Required: Yes Store Sales Manager Services: Store Sales Manager Present Store Sales Manager Name: Afshin [id number] Accompanied by: Daughter Allergies faviola [FAVIOLA] Adverse Reaction (Intermediate, Verified 03/29/24 15:58) NAUSEA & VOMITING Penicillins [PENICILLINS] Adverse Reaction (Unknown, Verified 03/29/24 15:58) NAUSEA & VOMITING [facility] Allergy (Unknown, Uncoded 02/09/24 14:16) NAUSEA & VOMITING SARDINES Adverse Reaction (Intermediate, Uncoded 02/09/24 14:16) NAUSEA & VOMITING HPI Comments Details: . Elderly woman with a history of longstanding hypertension along with diabetes mellitus , pancreatic insufficiency, moderate to severe obstructive sleep apnea and chronic kidney disease with a baseline creatinine about 2.5 mg/dL. She was previously seen by another research and development director but has been lost to follow-up. She was recently found to have serum creatinine of more than 3 with a potassium of 5.6. Kayexalate has been prescribed by Gastroenterology and she would and referred for further evaluation and management. Today she was accompanied by her daughter. No specific complaints like difficulty urination or hematuria. No nausea or vomiting. No shortness of breath. She has asthma but uses inhalers regularly. [facility], [facility] Medical History Exocrine pancreatic insufficiency Chest discomfort Shortness of breath ANKIT (obstructive sleep apnea) Asthma Pulmonary hypertension Vasovagal syncope Type 2 diabetes mellitus with unspecified complications Essential hypertension PAF (paroxysmal atrial fibrillation) Cardiomyopathy Surgical History No pertinent past surgical history Family History Father No problems noted. Mother No problems noted. Social History Alcohol intake: never Patient Tobacco Use Status: Never used Tobacco Physical Exam Vital Signs: Last Vital Signs Pulse 79 03/29/24 15:55 BP 132/62 03/29/24 15:55 Pulse Ox 98 03/29/24 15:55 Oxygen Delivery Method Room Air 03/29/24 15:55 BMI result Body Mass Index 31.4 Const General: comfortable; No acute distress Orientation/consciousness: patient oriented x3 Eyes General: appearance normal, both eyes and all related structures Visual Mckeon: normal visual mckeon by confrontation Neck Neck: Yes supple and Yes no JVD Resp Effort & Inspection: normal respiratory effort and respiratory effort not decreased Auscultation: rhonchi Cardio Palpation: no palpable S3 and no palpable S4 Heart sounds: no rubs GI Inspection: Yes normal to inspection Palpation (GI): Soft to palpation Percussion: Yes normal to percussion Auscultation: normal bowel sounds General: Yes no CVA tenderness Back/Spine/Pelvis Back: no CVA tenderness Skin General skin exam: no petechiae and no purpura Neuro General: patient oriented x3 and no focal motor deficits Extrem General: No clubbing and No edema Results Reviewed Nephrology Results: Hgb 10.9 g/dl (12.0-16.0) L 03/17/24 WBC 5.8 X10*3/uL (4.8-10.8) 03/17/24 Plt Count 251 X10*3/uL (160-400) 03/17/24 Sodium 138 mmol/L (135-145) 03/17/24 Potassium 5.9 mmol/L (3.3-5.1) H 03/17/24 Chloride 105 mmol/L (96-108) 03/17/24 Carbon Dioxide 19 mmol/L (22-29) L 03/17/24 BUN 71 mg/dL (9-16) H 03/17/24 Creatinine 3.00 mg/dL (0.5-1.4) H 03/17/24 Calcium 9.5 mg/dL (8.4-10.2) 03/17/24 Assessment & Plan Assessment & Plan (1) CKD (chronic kidney disease): Code(s): N18.9 - Chronic kidney disease, unspecified Category: Medical (2) Chronic diastolic (congestive) heart failure: Code(s): I50.32 - Chronic diastolic (congestive) heart failure Category: Medical (3) Anemia: Code(s): D64.9 - Anemia, unspecified Category: Medical (4) Essential hypertension: Code(s): I10 - Essential (primary) hypertension Category: Medical (5) Type 2 diabetes mellitus with unspecified complications: Code(s): E11.8 - Type 2 diabetes mellitus with unspecified complications Category: Medical Plan Elderly woman with stage IV CKD most likely due to longstanding hypertension and diabetes mellitus. She has no significant proteinuria at this time. No clinical evidence of obstruction. Based on the bland urine sediments I do not believe she is any active glomerular nephritis or interstitial disease at this time. She is significant hyperkalemia. This is probably due to decreased potassium excretion in the setting of advanced CKD. Hypertension blood pressure is well controlled. Anemia multifactorial. Erythropoietin deficiency could be playing a significant role. Recommendations Low-potassium diet I have discussed this with the patient and her daughter. Agree with Kayexalate. Recheck potassium levels. Obtain renal ultrasonogram to check echogenicity of the kidneys and to rule out hydronephrosis. No changes made to the antihypertensive medications. She she has no significant proteinuria I will hold off on using any MORGAN inhibitors or ARB use especially since she has hyperkalemia. Goal is to slow the progression of disease Continue overt nephrotoxic agents including NSAIDs. She will follow along with the team. Orders: Orders Protein, 24 Hr Urine Group 03/29/24 N18.9 - Chronic kidney disease, unspecified Parathyroid Hormone Intact 03/29/24 N18.9 - Chronic kidney disease, unspecified Creatinine, 24 Hr Group 03/29/24 N18.9 - Chronic kidney disease, unspecified Phosphorus 03/29/24 N18.9 - Chronic kidney disease, unspecified Basic Metabolic Panel 2 Weeks N18.9 - Chronic kidney disease, unspecified Coding Level of Care Code New Pt Level 5 (57751) Diagnoses CKD (chronic kidney disease) N18.9 Chronic diastolic (congestive) heart failure I50.32 Anemia D64.9 Essential hypertension I10 Type 2 diabetes mellitus with unspecified complications E11.8
== END 2024-03-29 16:14 | disposition home or self-care (01) ==
PROVIDERS: PCP Pediatrics; Referring Provider Pediatrics; Visit Provider Internal Medicine Hypertension Specialist
DX: I13.0 Hypertensive heart and chronic kidney disease with heart failure and stage 1 through stage 4 chronic kidney disease, or unspecified chronic kidney disease (principal); I50.32 Chronic diastolic (congestive) heart failure; E11.22 Type 2 diabetes mellitus with diabetic chronic kidney disease; N18.4 Chronic kidney disease, stage 4 (severe); D63.1 Anemia in chronic kidney disease
CPT/HCPCS: 99204

== ENCOUNTER → 2024-03-29 15:51 | Outpatient (BNVA) | payer OTHER, SELFPAY | PROVIDERS: PCP Pediatrics; Referring Provider Pediatrics; Visit Provider Internal Medicine Hypertension Specialist | DX: E11.22 Type 2 diabetes mellitus with diabetic chronic kidney disease (principal); I13.0 Hypertensive heart and chronic kidney disease with heart failure and stage 1 through stage 4 chronic kidney disease, or unspecified chronic kidney disease; N18.4 Chronic kidney disease, stage 4 (severe); I50.32 Chronic diastolic (congestive) heart failure; D63.1 Anemia in chronic kidney disease | CPT/HCPCS: 99202 ==

== ENCOUNTER 2024-03-31 18:07 | Outpatient (REF) | payer OTHER, SELFPAY ==
[2024-03-31 19:13] LABS: Creatinine, mg/dL 47.22
[2024-03-31 19:22] LABS: Creatinine, mg/dL 47.37; Protein mg/dL < 7 mg/dL
[2024-03-31 19:53] LABS: Creatinine, 24Hr Urine 0.9 G/Day (1.0-2.0)
[2024-03-31 19:54] LABS: Creatinine, 24Hr Urine 0.9 G/Day (1.0-2.0); Protein 24 Hr Urine < 128 mg/Day (<150); Total Volume 24 Hour Urine 1825 mL
== END 2024-03-31 18:08 | disposition home or self-care (01) ==
LOC: HO.LNP 18:07
PROVIDERS: Visit Provider Internal Medicine Hypertension Specialist
DX: N18.9 Chronic kidney disease, unspecified (principal)
CPT/HCPCS: 82570; 84156

== ENCOUNTER 2024-04-06 13:57 | Outpatient (AMB) | payer OTHER, SELFPAY ==
--- NOTE | 2024-04-06 14:02 | MHC.OFFVIS ---
Vital Signs 04/06/24 14:03 Height 5 ft 1 in Weight 168 lb 6.931 oz BMI 31.8 BP 142/64 H Blood Pressure Location Lt brachial Position Sitting Pulse 75 Pulse Source Monitor Intake Visit Reasons: 4 month fu + clear for endo/colonoscopy Automatic Grinder Operator Required: Yes Automatic Grinder Operator Language: Ceramic Coater Name: hima [id number] 0rlando Nuclear Medicine Chief Technologist: Nuclear Medicine Chief Technologist Present Allergies faviola [FAVIOLA] Adverse Reaction (Intermediate, Verified 04/06/24 14:06) NAUSEA & VOMITING Penicillins [PENICILLINS] Adverse Reaction (Unknown, Verified 04/06/24 14:06) NAUSEA & VOMITING [facility] Allergy (Unknown, Uncoded 04/06/24 14:06) NAUSEA & VOMITING SARDINES Adverse Reaction (Intermediate, Uncoded 04/06/24 14:06) NAUSEA & VOMITING Medication List - Last Reconciled 04/06/24 by Rebeca Ortiz WRAPPER SELECTOR-C albuterol sulfate 90 mcg/actuation (Ventolin HFA) 2 puffs inhalation Q4H PRN albuterol sulfate 2.5 mg (3 mL) inhalation Q4H PRN alendronate 70 mg PO QWEEK amlodipine 10 mg PO DAILY ammonium lactate 12% 1 appl topical DAILY apixaban (Eliquis) 5 mg PO BID atorvastatin 40 mg PO BEDTIME candesartan 16 mg PO DAILY 90 days cholecalciferol (vitamin D3) 50 mcg PO DAILY cyanocobalamin (vitamin B-12) 1,000 mcg PO DAILY dexlansoprazole (Dexilant) 60 mg PO DAILY docusate sodium 100 mg PO BID PRN duloxetine 60 mg PO DAILY famotidine 20 mg PO DAILY ferrous sulfate 325 mg PO DAILY fluticasone propionate 220 mcg/actuation (Flovent HFA) 2 puffs inhalation BID wxuwznknsys-wnbmwaoif-hhhfbwzc 100-62.5-25 mcg (Trelegy Ellipta) 1 inh inhalation DAILY 30 days furosemide 40 mg PO DAILY gabapentin 100 mg PO DAILY glipizide 10 mg PO DAILY hydralazine 50 mg PO TID 90 days inhalational spacing device (Vortex Holding Chamber) As directed ketorolac 0.5% drps ophthalmic (eye) lidocaine-prilocaine 2.5-2.5 % 2.5 grams topical DAILY iewuae-nabpdddi-tuowvzi 36,000-114,000- 180,000 unit (Creon) 1 cap PO QID meclizine 25 mg PO DAILY PRN metformin 1,000 mg PO BID methylcellulose (laxative) (Citrucel) 500 mg PO DAILY metoprolol tartrate 50 mg PO BID 90 days nebulizers As directed omega 4-gei-cma-fish oil 300 mg (120 mg- 180mg)-1,000 mg caps PO peg 211-nukkoockxcmd-rgpyrwzn 1-0.2-0.2 % (Artificial Tears ([id number])) drps ophthalmic (eye) sennosides (senna) 17.2 mg PO DAILY sildenafil (pulm.hypertension) 20 mg PO TID 90 days simethicone 180 mg PO TID PRN sitagliptin phosphate (Januvia) 25 mg PO DAILY sodium polystyrene sulfonate 15 grams PO DAILY witch james 50% (Medi-Pads) pad topical HPI HPI 4 month fu + clear for endo/colonoscopy: Details: Belen is a 78-year-old female with past medical history of diabetes, pulmonary hypertension, paroxysmal atrial fibrillation, cardiomyopathy, diastolic heart failure, obstructive sleep apnea who presents for follow-up. Today she reports that she has been experiencing discomfort in her chest which occurs randomly. She recalls it happening yesterday. It is not brought on by physical activity. She finds that if she belches she will feel better. She is not aware of any food items that affect her symptoms. She does have a history of reflux which can contribute to this symptom. She does have issues with fatigue. She is not wearing her CPAP mask and states that she will not due to claustrophobia. She has some shortness of breath with activity but admits to being mostly sedentary. She ambulates only short distances with a walker. No PND, orthopnea or edema. No palpitations, presyncope, syncope, falls. Taking meds as directed. Daughter is present. Certified interpreter deaf used. [facility] Medical History (Updated 04/06/24 @ 16:38 by DENILSON Palma) Chest discomfort Exocrine pancreatic insufficiency Shortness of breath ANKIT (obstructive sleep apnea) Asthma Pulmonary hypertension Vasovagal syncope Type 2 diabetes mellitus with unspecified complications Essential hypertension PAF (paroxysmal atrial fibrillation) Cardiomyopathy Surgical History No pertinent past surgical history Family History Father No problems noted. Mother No problems noted. Social History Alcohol intake: never Patient Tobacco Use Status: Never used Tobacco Review of Systems Const All systems reviewed & are unremarkable except as noted in HPI and below Reports fatigue ENT Denies dizziness Card Reports chest pain (pressure from gas that improves with belching), Denies chest pain at rest, Denies chest pain with activity, Denies rapid heart rate, Denies pedal edema, Denies edema, Denies leg edema, Denies lightheadedness, Denies palpitations, Denies dyspnea, Denies dyspnea on exertion and Denies orthopnea Resp Denies cough, Denies dyspnea and Denies dyspnea on exertion GI Denies hematochezia and Denies change in stool character Musc Details: using walker Reports abnormal gait, Reports limited range of motion, Denies muscle cramps, Denies muscle weakness, Denies numbness, Denies radiating pain into limb, Denies stiffness and Denies tingling Neuro Reports abnormal gait, Denies dizziness, Denies numbness and Denies tingling Endo Reports fatigue and Denies palpitations Physical Exam Vital Signs: Last Vital Signs Pulse 75 04/06/24 14:03 BP 142/64 H 04/06/24 14:03 BMI result Body Mass Index 31.8 Const General: cooperative, healthy appearing, comfortable and no acute distress Orientation/consciousness: patient oriented x3 Neck Neck: Yes normal visual inspection Resp Effort & Inspection: normal respiratory effort Auscultation: clear to auscultation bilaterally, no crackles, no rales, no rhonchi and no wheezes Cardio Jugular venous distension: no JVD Rate: regular rate Rhythm: regular rhythm Heart sounds: S1 normal heart sound present, S2 normal heart sound present, no murmurs and no rubs Neuro General: patient oriented x3 Extrem General: Yes normal to inspection, No no pedal edema and No calf tenderness Psych Appearance: grossly normal Mental Status: mental status grossly normal Speech and movement: Normal speech and movement present Office Procedures EKG Details: Today, read by me, normal sinus rhythm, no acute ST or T-wave abnormalities, rate 75, QTC 464 milliseconds [id number], Complete Assessment & Plan Assessment & Plan (1) Chest discomfort: Code(s): R07.89 - Other chest pain Category: Medical Plan: Atypical sounding chest discomfort previously reported and again reported today. EKG done today is normal. Also has reported epigastric area discomfort in the past.. Previously determined to have GERD and has been evaluated by GI. She has no known history of CAD. Last Echocardiogram does mention basal inferior hypokinesis. Nuclear stress test 2 years ago was normal. Her current symptom continues to be atypical sounding however with her cardiac risk factors of hypertension, diabetes, chronic kidney disease, age -will re-evaluate for ischemia with a pharmacological nuclear stress test. She has a follow-up with GI next week. Will ask that they also evaluate her symptoms. Signs and symptoms of angina reviewed with her and daughter. Emergency care if needed. Continue atorvastatin, metoprolol, amlodipine. Cardiology follow-up in 2 months, sooner if needed (2) Chronic diastolic (congestive) heart failure: Code(s): I50.32 - Chronic diastolic (congestive) heart failure Category: Medical Plan: History of diastolic heart failure. Last echocardiogram done 01/29/2023 showed normal EF, 55% with grade 2 diastolic dysfunction, basal inferior hypokinetic. Nuclear stress test done 03/13/2022 showed normal myocardial perfusion imaging. Today she reports some shortness of breath with activity which is not new. She also reports discomfort in her chest which occurs randomly and does have improvement with belching. She is mostly sedentary and is not noticing exertional symptoms. EKG done today showing normal sinus rhythm with no acute ST or T-wave abnormalities, rate 75. She follows with Dr. Johnson for pulmonology. She has known pulmonary hypertension. No evidence of fluid overloaded on examination. Will continue on current Lasix. Signs and symptoms of heart failure reviewed with her and daughter. (3) Shortness of breath: Code(s): R06.02 - Shortness of breath Category: Medical Plan: As above (4) PAF (paroxysmal atrial fibrillation): Code(s): I48.0 - Paroxysmal atrial fibrillation Category: Medical Plan: History of paroxysmal atrial fibrillation. No reports of heart palpitations in recent months. EKG today confirms sinus rhythm, rate 75. She is on metoprolol for heart rate control. She is on Eliquis for anticoagulation. Labs done today shows creatinine 2.55.. She has a known history of chronic kidney disease and follows with Nephrology.. For her age and weight the Eliquis dose of 5 mg b.i.d. is appropriate. She is reported to have dementia. She ambulates with a walker. No recent falls reported. (5) Pulmonary hypertension: Code(s): I27.20 - Pulmonary hypertension, unspecified Category: Medical Plan: Following with Dr. Johnson (6) ANKIT (obstructive sleep apnea): Code(s): G47.33 - Obstructive sleep apnea (adult) (pediatric) Category: Medical Plan: Moderate to severe obstructive sleep apnea. She tells me she has not been wearing her mask . She is reporting much fatigue in the daytime. She follows with Dr. Johnson. Encouraged her to wear mask and reviewed the risks of untreated sleep apnea. (7) Essential hypertension: Code(s): I10 - Essential (primary) hypertension Category: Medical Plan: Blood pressure 142/64. Mildly elevated. Recent labs do show creatinine up to 3 and potassium 5.9. Has been seen by Nephrology. Recommends that all [place]/arbs be stopped. Will have her stop her candesartan and will increase hydralazine to 100 mg b.i.d.. Unclear if she is actually taking the current dose of 50 mg t.i.d. or if she is using it b.i.d.. Enter to the lab today. Labs are available prior to the completion of this note and showed potassium 5.0, creatinine 2.55. Will forward this note to Dr. Mccartney. Plan Time spent on chart review, documentation, interview and assessment Orders: Orders NM cardiolite stress test Today R07.89 - Other chest pain CA lexiscan stress w nyla Today R07.89 - Other chest pain Medications: New hydralazine dose change 100 mg PO BID 60 tabs 5RF Discontinued hydralazine Discontinued Reason: Doctor's Order 50 mg PO TID 90 days 270 tabs 2RF candesartan Discontinued Reason: Doctor's Order 16 mg PO DAILY 90 days 90 tabs 3RF Coding Level of Care Code Est Pt Level 4 (37800) Diagnoses Chest discomfort R07.89 Chronic diastolic (congestive) heart failure I50.32 Shortness of breath R06.02 PAF (paroxysmal atrial fibrillation) I48.0 Pulmonary hypertension I27.20 ANKIT (obstructive sleep apnea) G47.33 Essential hypertension I10 CPT Codes EKG - CPT: 36870-[id number], Complete ([id number]) Time Spent (min) 30
[2024-04-06 14:03] VITALS: BP 142/64; PULSE 75; BMI 31.8
== END 2024-04-06 14:42 | disposition home or self-care (01) ==
PROVIDERS: PCP Pediatrics; Visit Provider Nurse Practitioner Family
DX: R07.89 Other chest pain (principal); I50.32 Chronic diastolic (congestive) heart failure; R06.02 Shortness of breath; I48.0 Paroxysmal atrial fibrillation; I27.20 Pulmonary hypertension, unspecified; G47.33 Obstructive sleep apnea (adult) (pediatric); I10 Essential (primary) hypertension
CPT/HCPCS: 93010; 99214

== ENCOUNTER 2024-04-06 13:57 | Outpatient (REF) | payer OTHER, SELFPAY ==
[2024-04-06 16:13] LABS: INTERNATIONAL NORM RATIO 1.2 (0.9-1.1); Prothrombin Time 14.6 SEC (11.1-13.3)
[2024-04-06 16:36] LABS: Anion Gap 16 (12-20); Blood Urea Nitrogen 54 mg/dL (9-16); Calcium 9.6 mg/dL (8.4-10.2); Carbon Dioxide 27 mmol/L (22-29); Chloride 103 mmol/L (96-108); Estimated Glomerular Filt Rate 18; Glucose Random 198 mg/dL (60-115); Magnesium 2.1 mg/dL (1.6-2.6); Phosphorus 3.1 mg/dL (2.7-4.5); Sodium 141 mmol/L (135-145)
[2024-04-07 06:06] LABS: Parathyroid Hormone Intact 76.9 pg/mL (8.7-77.1)
== END 2024-04-06 13:58 | disposition home or self-care (01) ==
LOC: HO.LAB 13:57
PROVIDERS: Absent Provider Nurse Practitioner Family; PCP Pediatrics; Referring Provider Internal Medicine Hypertension Specialist; Visit Provider Nurse Practitioner Family
DX: I13.0 Hypertensive heart and chronic kidney disease with heart failure and stage 1 through stage 4 chronic kidney disease, or unspecified chronic kidney disease (principal); N18.9 Chronic kidney disease, unspecified; I50.32 Chronic diastolic (congestive) heart failure; R74.8 Abnormal levels of other serum enzymes; R79.89 Other specified abnormal findings of blood chemistry; R07.89 Other chest pain; R06.02 Shortness of breath; I48.0 Paroxysmal atrial fibrillation; I27.20 Pulmonary hypertension, unspecified; G47.33 Obstructive sleep apnea (adult) (pediatric)
CPT/HCPCS: 36415; 80048; 83735; 83970; 84100; 85610; 93005; 99212

== ENCOUNTER 2024-04-13 16:10 | Outpatient (AMB) | payer OTHER, SELFPAY ==
--- NOTE | 2024-04-13 16:21 | MHC.OFFVIS ---
Vital Signs 04/13/24 16:24 Height 5 ft 1 in Weight 168 lb 6.931 oz BMI 31.8 BP 138/60 Blood Pressure Location Lt brachial Position Sitting Pulse 66 Pulse Source Pulse Oximeter Pulse Oximetry (%) 98 Oxygen Delivery Method Room Air Intake Visit Reasons: 4 week follow up Intake Note: Belen presents to the office today for a scheduled 4 week progress FUV. CC; Pt reports that they are feeling more or less stable since their last visit. Pt denies any new concerns or sx at this time. Electrical Technology Instructor Required: Yes Electrical Technology Instructor Services: Electrical Technology Instructor Offered & Declined Information Interpreted: non-clinical & clinical Accompanied by: Family/Other Allergies faviola [FAVIOLA] Adverse Reaction (Intermediate, Verified 04/19/24 14:00) NAUSEA & VOMITING Penicillins [PENICILLINS] Adverse Reaction (Unknown, Verified 04/19/24 14:00) NAUSEA & VOMITING [facility] Allergy (Unknown, Uncoded 04/06/24 14:06) NAUSEA & VOMITING SARDINES Adverse Reaction (Intermediate, Uncoded 04/06/24 14:06) NAUSEA & VOMITING HPI HPI 4 week follow up: Details: LAST VISIT: Exocrine pancreatic insufficiency Postprandial epigastric pain GERD (gastroesophageal reflux disease) IBS (irritable bowel syndrome) CKD (chronic kidney disease) Plan Referral to Nephrology. History of anemia, will repeat lab work, CBC, CMP, ferritin, iron profile. Patient was encouraged to avoid dietary triggers and late night snacking. Staying upright for minimum 3 hours discussed with patient. Patient will continue taking Creon before meals. Patient was taking the medication after meals. I will see patient in 4 weeks, sooner on as needed basis. Patient is agreeable to this plan and verbalizes understanding of instructions. She was given the opportunity to ask questions and all questions answered. ? Thank you for allowing me to participate in her care Orders Orders Ferritin 03/17/24 R74.8 IRON PROFILE 03/17/24 D64.9 Complete Blood Count no Diff 03/17/24 K21.9 Comprehensive Met. Panel 03/17/24 K21.9 Ammonia 03/17/24 R53.1, R53.83 Referrals Nephrology Referral N18.9 Medications Discontinued sucralfate Discontinued Reason: Duplicate 1 g PO BEDTIME 30 tabs 4RF TODAY'S VISIT Patient is here today for follow-up. Patient is accompanied by her daughter who will interpret for us per patient's request. Refusal of continuing education dean paperwork signed by patient, myself and the daughter. Patient reports that she has been feeling little better. Moves her bowels well, however she continues to have abdominal bloating. Patient reports that the bloating is very uncomfortable, often feels her stomach very distended like she is having trouble taking a breath. Saw Nephrology after being referred and patient will be monitor. Patient reports that she is taking senna and her symptoms are better. Patient is taking Creon before meals. Denies dyspepsia, dysphagia or odynophagia. Occasional acid reflux as postprandial abdominal bloating [facility] Medical History Chest discomfort Exocrine pancreatic insufficiency Shortness of breath ANKIT (obstructive sleep apnea) Asthma Pulmonary hypertension Vasovagal syncope Type 2 diabetes mellitus with unspecified complications Essential hypertension PAF (paroxysmal atrial fibrillation) Cardiomyopathy Surgical History No pertinent past surgical history Family History Father No problems noted. Mother No problems noted. Social History Alcohol intake: never Patient Tobacco Use Status: Never used Tobacco Review of Systems Const Denies weight gain and Denies weight loss ENT Reports no additional complaints, Denies dysphagia and Denies odynophagia Card Reports no additional complaints Resp Reports no additional complaints GI Denies abdominal pain, Denies belching, Denies melena, Denies bloating, Denies change in bowel habits, Reports constipation (Improved), Denies dysphagia, Denies excessive flatus, Denies dyspepsia, Reports heartburn, Denies diarrhea, Denies loose stools, Denies nausea, Denies odynophagia and Denies vomiting Reports no additional complaints Musc Reports no additional complaints Neuro Reports no additional complaints Psych Reports no additional complaints Endo Reports no additional complaints Physical Exam Vital Signs: Last Vital Signs Pulse 66 04/13/24 16:24 BP 138/60 04/13/24 16:24 Pulse Ox 98 04/13/24 16:24 Oxygen Delivery Method Room Air 04/13/24 16:24 BMI result Body Mass Index 31.8 Const General: healthy appearing, no acute distress and well developed Nutritional Appearance: obese Orientation/consciousness: patient oriented x3 Resp Effort & Inspection: normal respiratory effort, able to speak in complete sentences, no tracheal deviation and symmetric chest movement Auscultation: clear to auscultation bilaterally Cardio Rate: regular rate GI Inspection: Yes normal to inspection, No distended and Yes obesity Palpation (GI): Soft to palpation, not firm, nontender and No hepatosplenomegaly present Auscultation: normal bowel sounds General: Yes no CVA tenderness Back/Spine/Pelvis Back: no CVA tenderness Skin General skin exam: elasticity normal, turgor normal and dry skin Neuro General: patient oriented x3 Psych Appearance: grossly normal Mental Status: mental status grossly normal Assessment & Plan Assessment & Plan (1) Exocrine pancreatic insufficiency: Code(s): K86.81 - Exocrine pancreatic insufficiency Category: Medical (2) CKD (chronic kidney disease): Code(s): N18.9 - Chronic kidney disease, unspecified Category: Medical Qualifiers: Chronic kidney disease stage: unspecified stage Qualified Code(s): N18.9 - Chronic kidney disease, unspecified (3) Postprandial epigastric pain: Code(s): R10.13 - Epigastric pain (4) GERD (gastroesophageal reflux disease): Code(s): K21.9 - Gastro-esophageal reflux disease without esophagitis Qualifiers: Esophagitis presence: esophagitis presence not specified Qualified Code(s): K21.9 - Gastro-esophageal reflux disease without esophagitis (5) IBS (irritable bowel syndrome): Code(s): K58.9 - Irritable bowel syndrome without diarrhea Qualifiers: Irritable bowel syndrome type: without diarrhea Qualified Code(s): K58.9 - Irritable bowel syndrome without diarrhea Plan Patient can take lansoprazole will check magnesium and calcium levels. We will watch carefully her kidney functions if they increase will stop lansoprazole and put her on Dexilant. Patient was encouraged to avoid dietary triggers. Continue Creon before meals. Ideally you would like to send patient for upper endoscopy and colonoscopy, however she will be going for nuclear stress test with Lexiscan. Cardiology will is following with her. Potassium levels are being followed by Nephrology. Cardiology and nephrology notes reviewed, lab work reviewed. Patient will return in 4 weeks, sooner on as needed basis. She is agreeable to this plan and verbalizes understanding of instructions. She was given the opportunity to ask questions and all questions answered. Thank you for allowing me to participate in her care Orders: Orders Magnesium 04/19/24 N18.9 - Chronic kidney disease, unspecified Calcium 04/19/24 K21.9 - Gastro-esophageal reflux disease without esophagitis, R10.13 - Epigastric pain Medications: New lansoprazole 30 mg PO DAILY 30 caps 3RF K21.9 - Gastro-esophageal reflux disease without esophagitis Coding Level of Care Code Est Pt Level 4 (22435) Diagnoses Exocrine pancreatic insufficiency K86.81 Chronic kidney disease, unspecified CKD stage N18.9 Chronic kidney disease stage: unspecified stage Postprandial epigastric pain R10.13 Gastroesophageal reflux disease, unspecified whether esophagitis present K21.9 Esophagitis presence: esophagitis presence not specified Irritable bowel syndrome without diarrhea K58.9 Irritable bowel syndrome type: without diarrhea Time Spent (min) 35 Comment 20 minutes spent with patient and additional 15 minutes spent reviewing her records
[2024-04-13 16:24] VITALS: BP 138/60; PULSE 66; O2SAT 98; BMI 31.8
== END 2024-04-13 17:10 | disposition home or self-care (01) ==
PROVIDERS: PCP Pediatrics; Visit Provider Nurse Practitioner Family
DX: K86.81 Exocrine pancreatic insufficiency (principal); N18.9 Chronic kidney disease, unspecified; R10.13 Epigastric pain; K21.9 Gastro-esophageal reflux disease without esophagitis; K58.9 Irritable bowel syndrome, unspecified
CPT/HCPCS: 99214

== ENCOUNTER → 2024-04-13 16:10 | Outpatient (BNVA) | payer OTHER, SELFPAY | PROVIDERS: PCP Pediatrics; Visit Provider Nurse Practitioner Family | DX: K86.81 Exocrine pancreatic insufficiency (principal); N18.9 Chronic kidney disease, unspecified; R10.13 Epigastric pain; K21.9 Gastro-esophageal reflux disease without esophagitis; K58.9 Irritable bowel syndrome, unspecified | CPT/HCPCS: 99212 ==

== ENCOUNTER 2024-04-19 13:54 | Outpatient (AMB) | payer OTHER, SELFPAY ==
[2024-04-19 13:57] VITALS: BP 164/60; PULSE 75; O2SAT 95; BMI 31.9
--- NOTE | 2024-04-19 13:57 | HO.NEPHOV ---
Vital Signs 04/19/24 13:57 04/19/24 14:11 Height 5 ft 1 in Weight 169 lb BMI 31.9 BP 164/60 H 150/60 H Blood Pressure Location Lt brachial Lt brachial Position Sitting Sitting Pulse 75 Pulse Source Pulse Oximeter Pulse Oximetry (%) 95 Oxygen Delivery Method Room Air Intake Visit Reasons: 3 wks follow up Cassandra Architect Required: Yes Cassandra Architect Name: [id number] Accompanied by: Daughter Allergies faviola [FAVIOLA] Adverse Reaction (Intermediate, Verified 04/19/24 14:00) NAUSEA & VOMITING Penicillins [PENICILLINS] Adverse Reaction (Unknown, Verified 04/19/24 14:00) NAUSEA & VOMITING [facility] Allergy (Unknown, Uncoded 04/06/24 14:06) NAUSEA & VOMITING SARDINES Adverse Reaction (Intermediate, Uncoded 04/06/24 14:06) NAUSEA & VOMITING HPI Comments Details: . Elderly woman with a history of longstanding hypertension along with diabetes mellitus , pancreatic insufficiency, moderate to severe obstructive sleep apnea and chronic kidney disease with a baseline creatinine about 2.5 mg/dL. She was previously seen by another accountant supervisor but has been lost to follow-up. She was recently found to have serum creatinine of more than 3 with a potassium of 5.6. Kayexalate has been prescribed by Gastroenterology and she would and referred for further evaluation and management. Today she was accompanied by her daughter. No specific complaints like difficulty urination or hematuria. No nausea or vomiting. No shortness of breath. She has asthma but uses inhalers regularly. 04/19/24 Feels better Blood sugars in 200s Still on Metformin On Kayexalate daily [facility] Medical History Chest discomfort Exocrine pancreatic insufficiency Shortness of breath ANKIT (obstructive sleep apnea) Asthma Pulmonary hypertension Vasovagal syncope Type 2 diabetes mellitus with unspecified complications Essential hypertension PAF (paroxysmal atrial fibrillation) Cardiomyopathy Surgical History No pertinent past surgical history Family History Father No problems noted. Mother No problems noted. Social History Alcohol intake: never Patient Tobacco Use Status: Never used Tobacco Physical Exam Vital Signs: Last Vital Signs Pulse 75 04/19/24 13:57 BP 150/60 H 04/19/24 14:11 Pulse Ox 95 04/19/24 13:57 Oxygen Delivery Method Room Air 04/19/24 13:57 BMI result Body Mass Index 31.9 Const General: comfortable; No acute distress Orientation/consciousness: patient oriented x3 Eyes General: appearance normal, both eyes and all related structures Visual Lion: normal visual lion by confrontation Neck Neck: Yes supple and Yes no JVD Resp Effort & Inspection: normal respiratory effort and respiratory effort not decreased Auscultation: rhonchi Cardio Palpation: no palpable S3 and no palpable S4 Heart sounds: no rubs GI Inspection: Yes normal to inspection Palpation (GI): Soft to palpation Percussion: Yes normal to percussion Auscultation: normal bowel sounds General: Yes no CVA tenderness Back/Spine/Pelvis Back: no CVA tenderness Skin General skin exam: no petechiae and no purpura Neuro General: patient oriented x3 and no focal motor deficits Extrem General: No clubbing and No edema Results Reviewed Nephrology Results: Hgb 10.9 g/dl (12.0-16.0) L 03/17/24 WBC 5.8 X10*3/uL (4.8-10.8) 03/17/24 Plt Count 251 X10*3/uL (160-400) 03/17/24 Sodium 141 mmol/L (135-145) 04/06/24 Potassium 5.0 mmol/L (3.3-5.1) 04/06/24 Chloride 103 mmol/L (96-108) 04/06/24 Carbon Dioxide 27 mmol/L (22-29) 04/06/24 BUN 54 mg/dL (9-16) H 04/06/24 Creatinine 2.55 mg/dL (0.5-1.4) H 04/06/24 Calcium 9.6 mg/dL (8.4-10.2) 04/06/24 Phosphorus 3.1 mg/dL (2.7-4.5) 04/06/24 PTH Intact 76.9 pg/mL (8.7-77.1) 04/06/24 Assessment & Plan Assessment & Plan (1) CKD (chronic kidney disease): Code(s): N18.9 - Chronic kidney disease, unspecified Category: Medical Qualifiers: Chronic kidney disease stage: unspecified stage Qualified Code(s): N18.9 - Chronic kidney disease, unspecified (2) Chronic diastolic (congestive) heart failure: Code(s): I50.32 - Chronic diastolic (congestive) heart failure Category: Medical (3) Anemia: Code(s): D64.9 - Anemia, unspecified Category: Medical (4) Essential hypertension: Code(s): I10 - Essential (primary) hypertension Category: Medical (5) Type 2 diabetes mellitus with unspecified complications: Code(s): E11.8 - Type 2 diabetes mellitus with unspecified complications Category: Medical Plan Elderly woman with stage IV CKD most likely due to longstanding hypertension and diabetes mellitus. She has no significant proteinuria at this time. No clinical evidence of obstruction. Based on the bland urine sediments I do not believe she is any active glomerular nephritis or interstitial disease at this time. She is a h/o significant hyperkalemia. This is probably due to decreased potassium excretion in the setting of advanced CKD. Hypertension blood pressure is well controlled. Anemia multifactorial. Erythropoietin deficiency could be playing a significant role. Recommendations Low-potassium diet I have discussed this with the patient and her daughter. Agree with Kayexalate. Recheck potassium levels today and adjust dose No changes made to the antihypertensive medications. She she has no significant proteinuria I will hold off on using any MORGAN inhibitors or ARB use especially since she has hyperkalemia. Goal is to slow the progression of disease Continue to avoid nephrotoxic agents including NSAIDs. Give the eGFR of 18 ml/mt, would recommend to discontinue MEtformin due the risk of lactice acidosis Orders: Orders Basic Metabolic Panel Today N18.9 - Chronic kidney disease, unspecified US renal BI Today N18.9 - Chronic kidney disease, unspecified Coding Level of Care Code Est Pt Level 4 (60434) Diagnoses Chronic kidney disease, unspecified CKD stage N18.9 Chronic kidney disease stage: unspecified stage Chronic diastolic (congestive) heart failure I50.32 Anemia D64.9 Essential hypertension I10 Type 2 diabetes mellitus with unspecified complications E11.8
[2024-04-19 14:11] VITALS: BP 150/60
== END 2024-04-19 14:22 | disposition home or self-care (01) ==
PROVIDERS: PCP Pediatrics; Visit Provider Internal Medicine Hypertension Specialist
DX: I12.9 Hypertensive chronic kidney disease with stage 1 through stage 4 chronic kidney disease, or unspecified chronic kidney disease (principal); N18.9 Chronic kidney disease, unspecified; I50.32 Chronic diastolic (congestive) heart failure; D64.9 Anemia, unspecified; E11.8 Type 2 diabetes mellitus with unspecified complications
CPT/HCPCS: 99214

== ENCOUNTER 2024-04-19 13:54 | Outpatient (REF) | payer OTHER, SELFPAY ==
[2024-04-19 16:12] LABS: Anion Gap 17 (12-20); Blood Urea Nitrogen 55 mg/dL (9-16); Calcium 9.8 mg/dL (8.4-10.2); Carbon Dioxide 31 mmol/L (22-29); Chloride 105 mmol/L (96-108); Estimated Glomerular Filt Rate 17; Glucose Random 195 mg/dL (60-115); Magnesium 1.8 mg/dL (1.6-2.6); Potassium 4.5 mmol/L (3.3-5.1); Sodium 148 mmol/L (135-145)
== END 2024-04-19 13:55 | disposition home or self-care (01) ==
LOC: HO.LAB 13:54
PROVIDERS: Absent Provider Nurse Practitioner Family; PCP Pediatrics; Visit Provider Internal Medicine Hypertension Specialist
DX: I13.0 Hypertensive heart and chronic kidney disease with heart failure and stage 1 through stage 4 chronic kidney disease, or unspecified chronic kidney disease (principal); E11.22 Type 2 diabetes mellitus with diabetic chronic kidney disease; N18.9 Chronic kidney disease, unspecified; I50.32 Chronic diastolic (congestive) heart failure; D64.9 Anemia, unspecified
CPT/HCPCS: 36415; 80048; 83735; 99212

== ENCOUNTER 2024-04-30 13:16 | Outpatient (REF) | payer OTHER, SELFPAY ==
--- NOTE | ~2024-04-30 | US_ITS ---
EXAMINATION: US RETROPERITONEAL COMPLETE (RENAL) CLINICAL INFORMATION: Chronic kidney disease. COMPARISON: Abdominal ultrasound December 17, 2023 TECHNIQUE: Real-time imaging of the kidneys and bladder. FINDINGS: RIGHT KIDNEY: 8.9 x 3.1 x 4.5 cm (SAG x AP x TRV). Renal cortical thickness is normal. No calculi or focal parenchymal lesions. No hydronephrosis. LEFT KIDNEY: 9.6 x 4.6 x 4.3 cm (SAG x AP x TRV). Renal cortical thickness is normal. No calculi or focal parenchymal lesions. No hydronephrosis. US/US renal BI IMPRESSION: Unremarkable sonographic imaging of the kidneys. Specifically, no renal calculi or hydronephrosis bilaterally. Electronically signed by: Dillon Espinosa MD 05/20/2024 07:03 AM EDT
== END 2024-04-30 13:17 | disposition home or self-care (01) ==
LOC: HO.US 13:16
PROVIDERS: PCP Pediatrics; Visit Provider Internal Medicine Hypertension Specialist
DX: N18.9 Chronic kidney disease, unspecified (principal)
CPT/HCPCS: 76775

== ENCOUNTER → 2024-05-06 07:54 | Outpatient (REF) | payer OTHER, SELFPAY ==
--- NOTE | ~2024-05-06 | NM_ITS ---
Lexiscan Myocardial perfusion study Indication: Chest pain Technique: The patient was brought in for a Lexiscan perfusion study on 05/06/2024 and was injected 0.4 mg of Lexiscan intravenously. Within a minute of this injection 25 mCi of sestamibi was given intravenously. Images were obtained using the SPECT gamma camera interlaced with the gating device. Images were obtained in supine position. Resting perfusion study was performed on 05/07/2024. Patient was administered 25 mCi of sestamibi intravenously at rest. Images were then obtained in supine position. Images were processed with the software and compared side to side in short axis, horizontal long axis and vertical long axis views. Total DLP 132mGy-cm. Findings: Raw acquisition reviewed. Arms by the patient's side. The stress perfusion study showed no significant perfusion abnormality. Both uncorrected as well as CT attenuation corrected images were reviewed. The gated study shows normal LV systolic function with calculated LVEF of 59%. LV cavity is normal in size. The gated study shows normal wall thickening and contraction of segments. Resting study shows no significant perfusion abnormality. Gating at rest reveals normal wall motion with ejection fraction at 58%. The findings are consistent with no reversible or fixed perfusion abnormality. NM/NM cardiolite stress test Impression: 1. Myocardial perfusion imaging study shows normal myocardial perfusion. 2. Gated LVEF is 59% during stress and 58% during rest. 3. Transient ischemic dilatation not present. EKG component of the test reported separately.
--- NOTE | 2024-05-06 08:02 | CA_ITS ---
Acquisition Time: 2024-05-06 08:04:22 Total Exercise Time: 00:02:00 Test Indications: Dyspnea CP Medications: SEE H Protocol: LEXISCAN Max HR: 107 BPM 75% of Pred: 141 BPM Max BP: 134/070 mmHG Max Work Load: 1.0 METS Pharmacological stress test with Lexiscan injection, with moderate SOB, no chest discomfort, without arrhythmais, with normotensive response to injection, with nondiagnoistic EKGs. Aminophylline 75mg IVP given to reverse Lexiscan. Breathing returned to baseline. Nuclear images pending. Test reviewed with Dr. Wheeler. Referred By: Rebeca Ortiz Overread By: Akanksha Apple
== END ==
LOC: HO.CARD 07:54
PROVIDERS: PCP Pediatrics; Visit Provider Nurse Practitioner Family
DX: R07.89 Other chest pain (principal)
CPT/HCPCS: 78452; 93017; A9500; J0280; J2785

== ENCOUNTER → 2024-05-06 08:02 | Outpatient (BNV) | payer OTHER, SELFPAY | PROVIDERS: PCP Pediatrics; Visit Provider Nurse Practitioner | DX: R07.9 Chest pain, unspecified (principal) | CPT/HCPCS: 78452; 93016; 93018 ==

== ENCOUNTER 2024-05-10 15:06 | Outpatient (AMB) | payer OTHER, SELFPAY ==
--- NOTE | 2024-05-10 15:09 | A.OFFVIS_ITS ---
Vital Signs 05/10/24 15:11 Height 5 ft 1 in Weight 167 lb 8.821 oz BMI 31.7 BP 154/80 H Blood Pressure Location Lt brachial Position Sitting Pulse 78 Pulse Source Pulse Oximeter Pulse Oximetry (%) 97 Oxygen Delivery Method Room Air Intake Visit Reasons: 4 week follow uip Intake Note: Belen presents in office today for a scheduled 4 week FUV. CC; Pt reports that they are still regular since their last visit. Pt reports that they are still experiencing frequent diarrhea. Pt also still reports having epigastric pain. Pt states that it is stable but not improved. Pt is having concerns about the effect of their metformin on their system and had requested that their provider change the medication, however; the medication was not changed at that time. Pt states that they have another appt coming up with that provider and they are going to request that it be changed again. Informatics Physician Liaison Required: Yes Accompanied by: Family/Other Allergies faviola [FAVIOLA] Adverse Reaction (Intermediate, Verified 05/10/24 15:10) NAUSEA & VOMITING Penicillins [PENICILLINS] Adverse Reaction (Unknown, Verified 05/10/24 15:10) NAUSEA & VOMITING [facility] Allergy (Unknown, Uncoded 04/06/24 14:06) NAUSEA & VOMITING SARDINES Adverse Reaction (Intermediate, Uncoded 04/06/24 14:06) NAUSEA & VOMITING HPI HPI 4 week follow uip: Details: LAST VISIT Exocrine pancreatic insufficiency CKD (chronic kidney disease) Postprandial epigastric pain GERD (gastroesophageal reflux disease) IBS (irritable bowel syndrome) Plan Patient can take lansoprazole will check magnesium and calcium levels. We will watch carefully her kidney functions if they increase will stop lansoprazole and put her on Dexilant. Patient was encouraged to avoid dietary triggers. Continue Creon before meals. Ideally you would like to send patient for upper endoscopy and colonoscopy, however she will be going for nuclear stress test with Lexiscan. Cardiology will is following with her. Potassium levels are being foll owed by Nephrology. Cardiology and nephrology notes reviewed, lab work reviewed. Patient will return in 4 weeks, sooner on as needed basis. She is agreeable to this plan and verbalizes understanding of instructions. She was given the opportunity to ask questions and all questions answered. ? Thank you for allowing me to participate in her care Orders Orders Magnesium 04/19/24 N18.9 Calcium 04/19/24 K21.9, R10.13 Medications New lansoprazole 30 mg PO DAILY 30 caps 3RF K21.9 TODAY'S VISIT Patient is here today for follow-up. Patient's daughter answered most of her questions for her. sales outfitter used during this appointment. Patient continues to have loose stools. Reports that lansoprazole is helpful. Patient takes it in the morning. Denies dyspepsia, dysphagia or odynophagia. Postprandial loose stools. Patient continues to drink milk. No change in her diet. Patient's daughter reports that patient is very stopping when it comes to food. Patient has been eating mostly [place] food, however is trying to incorporate more vegetables. Patient is taking fiber supplement daily. Kidney functions are monitored by her oracle drm consultant as well as potassium levels. Patient had Radha scan test and came back normal. Has appointment with her psych therapist next month. Patient denies any nausea or vomiting. Denies melena, hematochezia, unintentional weight loss or ribbon like stools. [facility] Medical History Chest discomfort Exocrine pancreatic insufficiency Shortness of breath ANKIT (obstructive sleep apnea) Asthma Pulmonary hypertension Vasovagal syncope Type 2 diabetes mellitus with unspecified complications Essential hypertension PAF (paroxysmal atrial fibrillation) Cardiomyopathy Surgical History No pertinent past surgical history Family History Father No problems noted. Mother No problems noted. Social History Alcohol intake: never Patient Tobacco Use Status: Never used Tobacco Review of Systems Const Denies weight gain and Denies weight loss ENT Reports no additional complaints, Denies dysphagia and Denies odynophagia Card Reports no additional complaints Resp Reports no additional complaints GI Denies abdominal pain, Denies belching, Denies melena, Denies bloating, Denies change in bowel habits, Denies constipation, Denies dysphagia, Denies excessive flatus, Denies dyspepsia, Reports heartburn, Denies diarrhea, Reports loose stools, Denies nausea, Denies odynophagia and Denies vomiting Reports no additional complaints Musc Reports no additional complaints Neuro Reports no additional complaints Psych Reports no additional complaints Endo Reports no additional complaints Physical Exam Vital Signs: Last Vital Signs Pulse 78 05/10/24 15:11 BP 154/80 H 05/10/24 15:11 Pulse Ox 97 05/10/24 15:11 Oxygen Delivery Method Room Air 05/10/24 15:11 BMI result Body Mass Index 31.7 Const General: healthy appearing and no acute distress Nutritional Appearance: obese Orientation/consciousness: patient oriented x3 Resp Effort & Inspection: normal respiratory effort, able to speak in complete sentences, no tracheal deviation and symmetric chest movement Auscultation: clear to auscultation bilaterally Cardio Rate: regular rate GI Inspection: Yes normal to inspection, No distended and Yes obesity Palpation (GI): Soft to palpation, not firm, nontender and No hepatosplenomegaly present Auscultation: normal bowel sounds General: Yes no CVA tenderness Back/Spine/Pelvis Back: no CVA tenderness Skin General skin exam: elasticity normal, turgor normal and dry skin Neuro General: patient oriented x3 Psych Appearance: grossly normal Mental Status: mental status grossly normal Assessment & Plan Assessment & Plan (1) Exocrine pancreatic insufficiency: Code(s): K86.81 - Exocrine pancreatic insufficiency Category: Medical (2) CKD (chronic kidney disease): Code(s): N18.9 - Chronic kidney disease, unspecified Category: Medical Qualifiers: Chronic kidney disease stage: stage 4 (severe) Qualified Code(s): N18.4 - Chronic kidney disease, stage 4 (severe) (3) Postprandial epigastric pain: Code(s): R10.13 - Epigastric pain (4) GERD (gastroesophageal reflux disease): Code(s): K21.9 - Gastro-esophageal reflux disease without esophagitis Qualifiers: Esophagitis presence: esophagitis presence not specified Qualified Code(s): K21.9 - Gastro-esophageal reflux disease without esophagitis (5) IBS (irritable bowel syndrome): Code(s): K58.9 - Irritable bowel syndrome without diarrhea Qualifiers: Irritable bowel syndrome type: with diarrhea Qualified Code(s): K58.0 - Irritable bowel syndrome with diarrhea Plan Patient will increase fiber. Continue taking lansoprazole for now. Patient had normal stress test and has appointment with Cardiology in May. Await for final clearance. Patient continues with loose stools postprandially. Will send to check GI panel. Avoid dietary triggers and late night snacking. Discussed with patient avoiding milk. Again discussed with patient and her daughter low FODMAP diet. List of food recommended given to her again. Patient will return in 3 months to discuss going for colonoscopy and upper endoscopy. Orders: Orders GI Panel Today R19.7 - Diarrhea, unspecified Coding Level of Care Code Est Pt Level 4 (60387) Diagnoses Exocrine pancreatic insufficiency K86.81 Stage 4 chronic kidney disease N18.4 Chronic kidney disease stage: stage 4 (severe) Postprandial epigastric pain R10.13 Gastroesophageal reflux disease, unspecified whether esophagitis present K21.9 Esophagitis presence: esophagitis presence not specified Irritable bowel syndrome with diarrhea K58.0 Irritable bowel syndrome type: with diarrhea Time Spent (min) 35 Comment 20 minutes spent with patient and additional 15 minutes spent reviewing her records
[2024-05-10 15:11] VITALS: BP 154/80; PULSE 78; O2SAT 97; BMI 31.7
== END 2024-05-10 16:02 | disposition home or self-care (01) ==
PROVIDERS: PCP Pediatrics; Visit Provider Nurse Practitioner Family
DX: K86.81 Exocrine pancreatic insufficiency (principal); N18.4 Chronic kidney disease, stage 4 (severe); R10.13 Epigastric pain; K21.9 Gastro-esophageal reflux disease without esophagitis; K58.0 Irritable bowel syndrome with diarrhea
CPT/HCPCS: 99214

== ENCOUNTER → 2024-05-10 15:06 | Outpatient (BNVA) | payer OTHER, SELFPAY | PROVIDERS: PCP Pediatrics; Visit Provider Nurse Practitioner Family | DX: K21.9 Gastro-esophageal reflux disease without esophagitis (principal); K58.0 Irritable bowel syndrome with diarrhea; K86.81 Exocrine pancreatic insufficiency; R10.13 Epigastric pain | CPT/HCPCS: 99212 ==

== ENCOUNTER → 2024-05-27 14:31 | Outpatient (RCR) | payer MEDICARE, SELFPAY ==
[2021-03-12 16:07] VITALS: BP 142/74; PULSE 73; RESP 14; TEMP 36.7; O2SAT 97
--- NOTE | 2021-03-12 16:07 | PM.HEMONCPN ---
Medical Summary - Medical Summary Date of Service: 03/12/21 Chief complaint: Follow-up Medical Summary: Diagnosis chronic anemia, chronic kidney disease stage 3 Hemoglobin ranging from 8.8-12 gram/dL dating back to 2017. Mild iron deficiency in 2017 with a transferrin saturation of 12%. Normal vitamin B12, folate, TSH, negative serum immunofixation in the past. Followed by planning supervisor and is on Procrit. Interval History Interval history: Patient is here in follow-up. Her main complaint today is left shoulder pain, this has been ongoing for about 2 weeks. She has difficulty lifting her arm above her shoulder. She is going to see her PCP in a few days. She is not sure if she hurt it. There is no swelling. She denies excess fatigue, no fever or chills. She has routine follow-up with her planning supervisor. She was supposed to get Procrit a few weeks ago but that was deferred as she could not make it for the appointment. Review of Systems - Constitutional Reports as per HPI, Reports no additional constitutional complaints [facility] Medical History: Medical History (Last Updated 11/27/20 @ 16:26 by Josemanuel Wheeler MD) Cardiomyopathy Essential hypertension PAF (paroxysmal atrial fibrillation) Type 2 diabetes mellitus with unspecified complications Vasovagal syncope Family History: Family History (Last Updated 11/27/20 @ 14:06 by BELLE Landeros) Father No problems noted. Mother No problems noted. Surgical History: Surgical History (Last Updated 11/27/20 @ 14:06 by BELLE Landeros) No pertinent past surgical history Social History: Social History (Last Updated 03/12/21 @ 16:10 by Nabila Celeste) Alcohol History: Alcohol intake: former Alcohol History Details: Alcohol intake frequency: does not drink Tobacco History: Patient Tobacco Use Status: Never used Tobacco Substance Use History: Use of substances other than those prescribed or required for medical reasons: No Home Medications and Allergies Home Medications Medication Instructions Recorded Confirmed Type acetaminophen 300 mg-codeine 30 mg 1 tab PO DAILY PRN 11/27/20 03/12/21 History tablet alendronate 70 mg tablet 70 mg PO QWEEK 11/27/20 03/12/21 History amlodipine 10 mg tablet 10 mg PO DAILY 11/27/20 03/12/21 History atorvastatin 40 mg tablet 40 mg PO BEDTIME 11/27/20 03/12/21 History candesartan 16 mg tablet 16 mg PO DAILY 11/27/20 03/12/21 History cholecalciferol (vitamin D3) 50 50 mcg PO DAILY 11/27/20 03/12/21 History mcg (2,000 unit) tablet docusate sodium 100 mg capsule 100 mg PO BID PRN 11/27/20 03/12/21 History duloxetine 60 mg capsule,delayed 60 mg PO DAILY 11/27/20 03/12/21 History release ferrous sulfate 325 mg (65 mg 325 mg PO TID 11/27/20 03/12/21 History iron) tablet gabapentin 100 mg capsule 100 mg PO DAILY 11/27/20 03/12/21 History hydralazine 25 mg tablet 25 mg PO BID 11/27/20 03/12/21 History insulin glargine 100 unit/mL 15 unit SUBCUT BEDTIME 11/27/20 03/12/21 History subcutaneous solution lidocaine-prilocaine 2.5 %-2.5 % 2.5 g TOPICAL DAILY 11/27/20 03/12/21 History topical cream metformin 1,000 mg tablet 1,000 mg PO BID 11/27/20 03/12/21 History omega-3 fatty acids-fish oil 340 1 cap PO BID 11/27/20 03/12/21 History mg-1,000 mg capsule pantoprazole 40 mg tablet,delayed 40 mg PO DAILY 11/27/20 03/12/21 History release simethicone 180 mg capsule 180 mg PO TID PRN 11/27/20 03/12/21 History Allergies Allergy/AdvReac Type Severity Reaction Status Date / Time faviola [FAVIOLA] AdvReac Intermediate NAUSEA & Verified 11/27/20 14:06 VOMITING Penicillins [PENICILLINS] AdvReac Unknown NAUSEA & Verified 11/27/20 14:06 VOMITING YUCA Allergy Unknown NAUSEA & Uncoded 11/27/20 14:06 VOMITING SARDINES AdvReac Intermediate NAUSEA & Uncoded 11/27/20 14:06 VOMITING Exam Vital signs: Vital Signs Temp Pulse Resp BP Pulse Ox 03/12/21 16:07 98.0 F 73 14 142/74 H 97 Intake and Output 03/12/21 03/13/21 03/13/21 22:59 06:59 14:59 Other: Weight 72.1 kg Weight in Grams 36077 - Constitutional Present: no acute distress - Routine HEENT Exam Head: Present: normal inspection Eye: Present: EOMI - Routine Neck Exam Present: normal inspection - Routine Respiratory Exam Present: CTAB - Routine Cardiovascular Exam Cardiovascular: Present: S1, S2 Data - Labs CBC & Chem 7: 03/12/21 16:32 03/12/21 16:32 Progress Note: A/P (1) Anemia Status: Chronic Assessment and plan: 1. This is a 75-year-old woman with chronic normocytic anemia and peripheral blood eosinophilia. Anemia is related to chronic kidney disease. She is on iron supplementation as well as HAZEL therapy. S Workup for peripheral blood eosinophilia showed negative flow cytometry, BCR-ABL, serum protein electrophoresis and immunofixation. She has vitamin B12 deficiency based on elevated methylmalonic acid levels and normal vitamin B12. Her folate levels is over 20. She is on oral vitamin B12 supplementation. She was encouraged to follow-up with her planning supervisor to receive her Procrit dose. Follow-up in 6 months. - Time Spent With Patient 15 - 24 minutes
[2021-03-12 16:36] LABS: MANUAL DIFF FLAG NO
[2021-03-12 16:44] LABS: Basophils Absolute Auto 0.1 X10*3/uL (0.0-0.2); Basophils Percent Auto 0.9 % (0-2); Eosinophils Absolute Auto 1.7 X10*3/uL (0.0-0.4); Hematocrit 33.8 % (37-47); Hemoglobin 10.5 g/dl (12.0-16.0); Imm Gran Abs Auto 0.01 X10*3/uL (0.00-0.03); Imm Gran Pct Auto 0.1 % (0.0-0.4); Lymphocytes Absolute Auto 1.6 X10*3/uL (1.2-4.9); Lymphocytes Percent Auto 23.8 % (20-40); Mean Corpuscular HGB Conc 31.1 g/dl (31.0-35.0); Mean Corpuscular Hemoglobin 29.2 pg (27.0-33.0); Mean Corpuscular Volume 94.2 fL (80-98); Monocytes Absolute Auto 0.4 X10*3/uL (0.1-1.2); Neutrophils Percent Auto 44.2 % (45-73); Platelet Count 238 X10*3/uL (160-400); Red Blood Count 3.59 X10*6/uL (4.20-5.50); Red Cell Distribution Width 15.1 % (11.0-16.0); White Blood Count 6.7 X10*3/uL (4.8-10.8)
[2021-03-12 17:21] LABS: Alanine Aminotransferase 11 U/L (0-31); Albumin Level 4.1 g/dL (3.5-5.0); Alkaline Phosphatase 34 U/L (39-117); Anion Gap 13 (12-20); Aspartate Amino Transferase 16 U/L (5-31); Bilirubin Total 0.3 mg/dL (0.0-1.0); Blood Urea Nitrogen 63 mg/dL (9-16); Calcium 9.2 mg/dL (8.4-10.2); Carbon Dioxide 30 mmol/L (22-29); Chloride 104 mmol/L (96-108); Creatinine Clr Calc Pharmacy 22.4; Estimated Glomerular Filt Rate 25; Glucose Random 147 mg/dL (60-115); Potassium 5.1 mmol/L (3.3-5.1); Sodium 142 mmol/L (135-145); Total Protein 6.8 g/dL (6.5-8.0)
== END | disposition home or self-care (01) ==
LOC: HO.ONC 03-12 16:03
PROVIDERS: PCP Pediatrics; Visit Provider Internal Medicine
DX: N18.30 Chronic kidney disease, stage 3 unspecified (principal); D63.1 Anemia in chronic kidney disease; D72.10 Eosinophilia, unspecified; E53.8 Deficiency of other specified B group vitamins; Z79.899 Other long term (current) drug therapy
CPT/HCPCS: 36415; 80053; 85025; 99213

== ENCOUNTER 2024-06-08 15:11 | Outpatient (AMB) | payer OTHER, SELFPAY ==
[2024-06-08 15:19] VITALS: BP 134/52; PULSE 67; BMI 31.7
--- NOTE | 2024-06-08 15:19 | MHC.OFFVIS ---
Vital Signs 06/08/24 15:19 Height 5 ft 1 in Weight 167 lb 8.821 oz BMI 31.7 BP 134/52 L Blood Pressure Location Lt brachial Position Sitting Pulse 67 Pulse Source Pulse Oximeter Intake Visit Reasons: 8 wk f/up labs/ nuc Training And Development Professional Required: No Training And Development Professional Services: Training And Development Professional Offered & Declined Training And Development Professional Name: Jony Belt Maker: Belt Maker Present Accompanied by: Grand Child Allergies faviola [FAVIOLA] Adverse Reaction (Intermediate, Verified 06/08/24 15:22) NAUSEA & VOMITING Penicillins [PENICILLINS] Adverse Reaction (Unknown, Verified 06/08/24 15:22) NAUSEA & VOMITING [facility] Allergy (Unknown, Uncoded 06/08/24 15:22) NAUSEA & VOMITING SARDINES Adverse Reaction (Intermediate, Uncoded 06/08/24 15:22) NAUSEA & VOMITING Medication List - Last Reconciled 06/08/24 by DENILSON Palma acetaminophen mg PO albuterol sulfate 90 mcg/actuation (Ventolin HFA) 2 puffs inhalation Q4H PRN albuterol sulfate 2.5 mg (3 mL) inhalation Q4H PRN alendronate 70 mg PO QWEEK amlodipine 10 mg PO DAILY ammonium lactate 12% 1 appl topical DAILY apixaban (Eliquis) 5 mg PO BID atorvastatin 40 mg PO BEDTIME blood sugar diagnostic (FreeStyle Lite Strips) As directed calcium polycarbophil (Fiber (calcium polycarbophil)) mg PO cholecalciferol (vitamin D3) 50 mcg PO DAILY cyanocobalamin (vitamin B-12) 1,000 mcg PO DAILY docusate sodium 100 mg PO BID PRN duloxetine 60 mg PO DAILY famotidine 20 mg PO DAILY ferrous sulfate 325 mg PO DAILY fluticasone propionate 220 mcg/actuation (Flovent HFA) 2 puffs inhalation BID fagkbmgpsem-ebmwttowo-qntugous 100-62.5-25 mcg (Trelegy Ellipta) 1 inh inhalation DAILY 30 days furosemide 40 mg PO DAILY gabapentin 100 mg PO DAILY glipizide 10 mg PO DAILY hydralazine 100 mg PO BID inhalational spacing device (Vortex Holding Chamber) As directed ketorolac 0.5% drps ophthalmic (eye) lansoprazole 30 mg PO DAILY lidocaine-prilocaine 2.5-2.5 % 2.5 grams topical DAILY wbgdse-makaxzmm-fcgvddu 36,000-114,000- 180,000 unit (Creon) 1 cap PO QID meclizine 25 mg PO DAILY PRN metformin 1,000 mg PO BID methylcellulose (laxative) (Citrucel) 500 mg PO DAILY metoprolol tartrate 50 mg PO BID 90 days nebulizers As directed omega 3-iyi-vzt-fish oil 300 mg (120 mg- 180mg)-1,000 mg caps PO peg [id number]-vibhcamichqu-szpcykrg 1-0.2-0.2 % (Artificial Tears ([id number])) drps ophthalmic (eye) polyethylene glycol 3350 (Miralax) 17 grams PO BID PRN 30 days sennosides (senna) 17.2 mg PO DAILY sildenafil (pulm.hypertension) 20 mg PO TID 90 days simethicone 180 mg PO TID PRN sitagliptin phosphate (Januvia) 25 mg PO DAILY sodium polystyrene sulfonate 15 grams PO DAILY sucralfate PO DAILY witch james 50% (Medi-Pads) pad topical HPI HPI 8 wk f/up labs/ nuc: Details: Belen is a 78-year-old female with past medical history of diabetes, pulmonary hypertension, paroxysmal atrial fibrillation, cardiomyopathy, diastolic heart failure, obstructive sleep apnea who reported chest discomfort last visit and underwent a nuclear stress test. She now presents for follow-up. Today she reports that she still gets discomfort in her chest which occurs randomly. This symptom is not getting any worse and is not brought on by physical activity. She still finds that if she belches she will feel better. She is not aware of any food items that affect her symptoms. She does have a history of reflux which can contribute to this symptom. She does have issues with fatigue. She is not wearing her CPAP mask and states that she will not due to claustrophobia. She has some shortness of breath with activity but admits to being mostly sedentary. Granddaughter is present tells me that she is in bed 20 hours a day. She ambulates only short distances with a walker. No palpitations, presyncope, syncope, falls. Taking meds as directed. Granddaughter is assisting with translation at their request. [facility] [place] Medical History Chest discomfort Exocrine pancreatic insufficiency Shortness of breath ANKIT (obstructive sleep apnea) Asthma Pulmonary hypertension Vasovagal syncope Type 2 diabetes mellitus with unspecified complications Essential hypertension PAF (paroxysmal atrial fibrillation) Cardiomyopathy Surgical History No pertinent past surgical history Family History Father No problems noted. Mother No problems noted. Social History Alcohol intake: never Patient Tobacco Use Status: Never used Tobacco Review of Systems Const All systems reviewed & are unremarkable except as noted in HPI and below Reports fatigue ENT Denies dizziness Card Reports chest pain, Denies chest pain at rest, Denies chest pain with activity, Denies rapid heart rate, Denies pedal edema, Denies edema, Denies leg edema, Denies lightheadedness, Denies palpitations, Denies dyspnea, Reports dyspnea on exertion and Denies orthopnea Resp Denies cough, Denies dyspnea and Reports dyspnea on exertion GI Denies hematochezia and Denies change in stool character Musc Denies abnormal gait (Needs support and assistance), Denies limited range of motion, Denies muscle cramps, Reports muscle weakness, Denies numbness, Denies radiating pain into limb, Denies stiffness and Denies tingling Neuro Denies abnormal gait (Needs support and assistance), Denies dizziness, Denies numbness and Denies tingling Endo Reports fatigue and Denies palpitations Physical Exam Vital Signs: Last Vital Signs Pulse 67 06/08/24 15:19 BP 134/52 L 06/08/24 15:19 BMI result Body Mass Index 31.7 Const General: cooperative, healthy appearing, comfortable and no acute distress Orientation/consciousness: patient oriented x3 Neck Neck: Yes normal visual inspection Resp Effort & Inspection: normal respiratory effort Auscultation: clear to auscultation bilaterally, no crackles, no rales, no rhonchi and no wheezes Cardio Jugular venous distension: no JVD Rate: regular rate Rhythm: regular rhythm Heart sounds: S1 normal heart sound present, S2 normal heart sound present, no murmurs and no rubs Neuro General: patient oriented x3 Extrem General: Yes normal to inspection, No no pedal edema and No calf tenderness Psych Appearance: grossly normal Mental Status: mental status grossly normal Speech and movement: Normal speech and movement present Assessment & Plan Assessment & Plan (1) Chest discomfort: Code(s): R07.89 - Other chest pain Category: Medical Plan: Atypical sounding chest discomfort. She has no known history of CAD. EKG done last visit was normal. Last Echocardiogram does mention basal inferior hypokinesis. Nuclear stress test 2 years ago was normal. Her current symptom was atypical sounding however with her cardiac risk factors of hypertension, diabetes, chronic kidney disease, age I did repeat a nuclear stress test on her. She underwent [facility] nuclear stress test on 05/07/2024 again showing normal myocardial perfusion imaging. Spent time reviewing results with her and explaining that even though she has discomfort in her chest region there is no evidence that it is cardiac in nature. Her symptom could be GI related. She has a history of GERD and does follow with GI. Continue atorvastatin, metoprolol, amlodipine. (2) Chronic diastolic (congestive) heart failure: Code(s): I50.32 - Chronic diastolic (congestive) heart failure Category: Medical Plan: History of diastolic heart failure. Last echocardiogram done 01/29/2023 showed normal EF, 55% with grade 2 diastolic dysfunction, basal inferior hypokinetic. Nuclear stress test just repeated is normal. Today she reports some shortness of breath with activity which is not new. She is very sedentary and this likely contributes to her symptom. He does not appear fluid overloaded on examination today. She follows with Dr. Johnson for pulmonology. She has known pulmonary hypertension. Will continue on current Lasix. Signs and symptoms of heart failure reviewed with her and grand daughter. (3) PAF (paroxysmal atrial fibrillation): Code(s): I48.0 - Paroxysmal atrial fibrillation Category: Medical Plan: History of paroxysmal atrial fibrillation. No reports of heart palpitations in recent months. EKG last visit confirmed sinus rhythm, rate 75. Pulse is very regular on exam today, clinically in sinus rhythm. She is on metoprolol for heart rate control. She is on Eliquis for anticoagulation. Labs done 04/19/2024 shows creatinine 2.68.. She has a known history of chronic kidney disease and follows with Nephrology. For her age and weight the Eliquis dose of 5 mg b.i.d. is appropriate. If her weight drops below 60 kg or when she turns 79 her dose should be reduced down to 2.5 mg b.i.d.. She is reported to have dementia. No recent falls reported. (4) Pulmonary hypertension: Code(s): I27.20 - Pulmonary hypertension, unspecified Category: Medical Plan: Following with Dr. Johnson (5) ANKIT (obstructive sleep apnea): Code(s): G47.33 - Obstructive sleep apnea (adult) (pediatric) Category: Medical Plan: Moderate to severe obstructive sleep apnea. She tells me she has not been wearing her mask . She is reporting much fatigue in the daytime. She follows with Dr. Johnson. Encouraged her to wear mask and reviewed the risks of untreated sleep apnea. (6) Essential hypertension: Code(s): I10 - Essential (primary) hypertension Category: Medical Plan: Blood pressure 134/52. No med changes made. Plan Time spent on chart review, documentation, interview and assessment Coding Level of Care Code Est Pt Level 4 (98223) Diagnoses Chest discomfort R07.89 Chronic diastolic (congestive) heart failure I50.32 PAF (paroxysmal atrial fibrillation) I48.0 Pulmonary hypertension I27.20 ANKIT (obstructive sleep apnea) G47.33 Essential hypertension I10 Time Spent (min) 28
== END 2024-06-08 15:48 | disposition home or self-care (01) ==
PROVIDERS: PCP Pediatrics; Visit Provider Nurse Practitioner Family
DX: R07.89 Other chest pain (principal); I50.32 Chronic diastolic (congestive) heart failure; I48.0 Paroxysmal atrial fibrillation; I27.20 Pulmonary hypertension, unspecified; G47.33 Obstructive sleep apnea (adult) (pediatric); I10 Essential (primary) hypertension
CPT/HCPCS: 99214

== ENCOUNTER → 2024-06-08 15:11 | Outpatient (BNVA) | payer OTHER, SELFPAY | PROVIDERS: PCP Pediatrics; Visit Provider Nurse Practitioner Family | DX: I11.0 Hypertensive heart disease with heart failure (principal); I50.32 Chronic diastolic (congestive) heart failure; I27.20 Pulmonary hypertension, unspecified; R07.89 Other chest pain; I48.0 Paroxysmal atrial fibrillation; I42.9 Cardiomyopathy, unspecified; G47.33 Obstructive sleep apnea (adult) (pediatric) | CPT/HCPCS: 99212 ==

== ENCOUNTER 2024-06-14 15:19 | Outpatient (AMB) | payer OTHER, SELFPAY ==
[2024-06-14 15:20] VITALS: BP 136/52; PULSE 68; O2SAT 98; BMI 32.5
--- NOTE | 2024-06-14 15:20 | HO.NEPHOV ---
Vital Signs 06/14/24 15:20 Height 5 ft 1 in Weight 172 lb BMI 32.5 BP 136/52 L Blood Pressure Location Lt brachial Position Sitting Pulse 68 Pulse Source Pulse Oximeter Pulse Oximetry (%) 98 Oxygen Delivery Method Room Air Intake Visit Reasons: 2 mo fu w/labs/ Conf It Support Technician Required: Yes It Support Technician Name: [id number] laura Accompanied by: Daughter Allergies faviola [FAVIOLA] Adverse Reaction (Intermediate, Verified 06/14/24 15:23) NAUSEA & VOMITING Penicillins [PENICILLINS] Adverse Reaction (Unknown, Verified 06/14/24 15:23) NAUSEA & VOMITING [facility] Allergy (Unknown, Uncoded 06/08/24 15:22) NAUSEA & VOMITING SARDINES Adverse Reaction (Intermediate, Uncoded 06/08/24 15:22) NAUSEA & VOMITING Medication List - Last Reviewed 06/14/24 by BELLE Mathis acetaminophen mg PO albuterol sulfate 90 mcg/actuation (Ventolin HFA) 2 puffs inhalation Q4H PRN albuterol sulfate 2.5 mg (3 mL) inhalation Q4H PRN alendronate 70 mg PO QWEEK amlodipine 10 mg PO DAILY ammonium lactate 12% 1 appl topical DAILY apixaban (Eliquis) 5 mg PO BID atorvastatin 40 mg PO BEDTIME blood sugar diagnostic (FreeStyle Lite Strips) As directed calcium polycarbophil (Fiber (calcium polycarbophil)) mg PO cholecalciferol (vitamin D3) 50 mcg PO DAILY cyanocobalamin (vitamin B-12) 1,000 mcg PO DAILY docusate sodium 100 mg PO BID PRN duloxetine 60 mg PO DAILY famotidine 20 mg PO DAILY ferrous sulfate 325 mg PO DAILY fluticasone propionate 220 mcg/actuation (Flovent HFA) 2 puffs inhalation BID hinxsebjblw-ptnalykmb-drdzbmap 100-62.5-25 mcg (Trelegy Ellipta) 1 inh inhalation DAILY 30 days furosemide 40 mg PO DAILY gabapentin 100 mg PO DAILY glipizide 10 mg PO DAILY hydralazine 100 mg PO BID inhalational spacing device (Vortex Holding Chamber) As directed insulin aspart U-100 (Novolog FlexPen U-100 Insulin aspart) subcut ketorolac 0.5% drps ophthalmic (eye) lansoprazole 30 mg PO DAILY lidocaine-prilocaine 2.5-2.5 % 2.5 grams topical DAILY ecoxeo-xernzilq-rgtogln 36,000-114,000- 180,000 unit (Creon) 1 cap PO QID meclizine 25 mg PO DAILY PRN metformin 1,000 mg PO BID methylcellulose (laxative) (Citrucel) 500 mg PO DAILY metoprolol tartrate 50 mg PO BID 90 days nebulizers As directed omega 4-ytx-rwq-fish oil 300 mg (120 mg- 180mg)-1,000 mg caps PO peg [id number]-mshxclrg 1-0.2-0.2 % (Artificial Tears ([id number])) drps ophthalmic (eye) polyethylene glycol 3350 (Miralax) 17 grams PO BID PRN 30 days sennosides (senna) 17.2 mg PO DAILY sildenafil (pulm.hypertension) 20 mg PO TID 90 days simethicone 180 mg PO TID PRN sitagliptin phosphate (Januvia) 25 mg PO DAILY sodium polystyrene sulfonate 15 grams PO DAILY sucralfate PO DAILY witch james 50% (Medi-Pads) pad topical HPI Comments Details: . Elderly woman with a history of longstanding hypertension along with diabetes mellitus , pancreatic insufficiency, moderate to severe obstructive sleep apnea and chronic kidney disease with a baseline creatinine about 2.5 mg/dL. She was previously seen by another slate mixer but has been lost to follow-up. She was recently found to have serum creatinine of more than 3 with a potassium of 5.6. Kayexalate has been prescribed by Gastroenterology and she would and referred for further evaluation and management. Today she was accompanied by her daughter. No specific complaints like difficulty urination or hematuria. No nausea or vomiting. No shortness of breath. She has asthma but uses inhalers regularly. 04/19/24 Feels better Blood sugars in 200s; Still on Metformin On Kayexalate daily 06/14/24 c/o weakness c/o Asthma [facility] Medical History Chest discomfort Exocrine pancreatic insufficiency Shortness of breath ANKIT (obstructive sleep apnea) Asthma Pulmonary hypertension Vasovagal syncope Type 2 diabetes mellitus with unspecified complications Essential hypertension PAF (paroxysmal atrial fibrillation) Cardiomyopathy Surgical History No pertinent past surgical history Family History Father No problems noted. Mother No problems noted. Social History Alcohol intake: never Patient Tobacco Use Status: Never used Tobacco Physical Exam Vital Signs: Last Vital Signs Pulse 68 06/14/24 15:20 BP 136/52 L 06/14/24 15:20 Pulse Ox 98 06/14/24 15:20 Oxygen Delivery Method Room Air 06/14/24 15:20 BMI result Body Mass Index 32.5 Results Reviewed Nephrology Results: Sodium 148 mmol/L (135-145) H 04/19/24 Potassium 4.5 mmol/L (3.3-5.1) 04/19/24 Chloride 105 mmol/L (96-108) 04/19/24 Carbon Dioxide 31 mmol/L (22-29) H 04/19/24 BUN 55 mg/dL (9-16) H 04/19/24 Creatinine 2.68 mg/dL (0.5-1.4) H 04/19/24 Calcium 9.8 mg/dL (8.4-10.2) 04/19/24 Phosphorus 3.1 mg/dL (2.7-4.5) 04/06/24 PTH Intact 76.9 pg/mL (8.7-77.1) 04/06/24 Renal US 04/30/24 Assessment & Plan Assessment & Plan (1) CKD (chronic kidney disease): Code(s): N18.9 - Chronic kidney disease, unspecified Category: Medical Qualifiers: Chronic kidney disease stage: stage 4 (severe) Qualified Code(s): N18.4 - Chronic kidney disease, stage 4 (severe) (2) Chronic diastolic (congestive) heart failure: Code(s): I50.32 - Chronic diastolic (congestive) heart failure Category: Medical (3) Anemia: Code(s): D64.9 - Anemia, unspecified Category: Medical (4) Essential hypertension: Code(s): I10 - Essential (primary) hypertension Category: Medical (5) Type 2 diabetes mellitus with unspecified complications: Code(s): E11.8 - Type 2 diabetes mellitus with unspecified complications Category: Medical Plan Elderly woman with stage IV CKD most likely due to longstanding hypertension and diabetes mellitus. She has no significant proteinuria at this time. No clinical evidence of obstruction. Based on the bland urine sediments I do not believe she is any active glomerular nephritis or interstitial disease at this time. She is a h/o significant hyperkalemia. This is probably due to decreased potassium excretion in the setting of advanced CKD. Hypertension blood pressure is well controlled. Anemia multifactorial. Erythropoietin deficiency could be playing a significant role. Recommendations Low-potassium diet I have discussed this with the patient and her daughter. Agree with Kayexalate. Recheck potassium levels today and adjust dose No changes made to the antihypertensive medications. She she has no significant proteinuria I will hold off on using any MORGAN inhibitors or ARB use especially since she has hyperkalemia. Goal is to slow the progression of disease Continue to avoid nephrotoxic agents including NSAIDs. Orders: Orders Complete Blood Count Auto Diff Today N18.4 - Chronic kidney disease, stage 4 (severe) Phosphorus Today N18.4 - Chronic kidney disease, stage 4 (severe) Basic Metabolic Panel Today N18.4 - Chronic kidney disease, stage 4 (severe) Parathyroid Hormone Intact Today N18.4 - Chronic kidney disease, stage 4 (severe) Coding Level of Care Code Est Pt Level 4 (61131) Diagnoses Stage 4 chronic kidney disease N18.4 Chronic kidney disease stage: stage 4 (severe) Chronic diastolic (congestive) heart failure I50.32 Anemia D64.9 Essential hypertension I10 Type 2 diabetes mellitus with unspecified complications E11.8
== END 2024-06-14 15:44 | disposition home or self-care (01) ==
PROVIDERS: PCP Pediatrics; Visit Provider Internal Medicine Hypertension Specialist
DX: I13.0 Hypertensive heart and chronic kidney disease with heart failure and stage 1 through stage 4 chronic kidney disease, or unspecified chronic kidney disease (principal); E11.22 Type 2 diabetes mellitus with diabetic chronic kidney disease; N18.4 Chronic kidney disease, stage 4 (severe); I50.32 Chronic diastolic (congestive) heart failure; D63.1 Anemia in chronic kidney disease
CPT/HCPCS: 99214

== ENCOUNTER 2024-06-14 15:19 | Outpatient (REF) | payer OTHER, SELFPAY ==
[2024-06-14 16:15] LABS: MANUAL DIFF FLAG NO
[2024-06-14 16:26] LABS: Basophils Absolute Auto 0.1 X10*3/uL (0.0-0.2); Basophils Percent Auto 0.9 % (0-2); Eosinophils Absolute Auto 0.4 X10*3/uL (0.0-0.4); Eosinophils Percent Auto 7.1 % (0-4); Hematocrit 28.5 % (37.0-47.0); Hemoglobin 8.7 g/dl (12.0-16.0); Imm Gran Abs Auto 0.02 X10*3/uL (0.00-0.03); Imm Gran Pct Auto 0.4 % (0.0-0.4); Lymphocytes Absolute Auto 0.8 X10*3/uL (1.2-4.9); Mean Corpuscular HGB Conc 30.5 g/dl (31.0-35.0); Mean Corpuscular Hemoglobin 30.4 pg (27.0-33.0); Mean Corpuscular Volume 99.7 fL (80.0-98.0); Mean Platelet Volume 10.3 fL (9.4-12.3); Monocytes Absolute Auto 0.4 X10*3/uL (0.1-1.2); Monocytes Percent Auto 7.1 % (2-11); Neutrophils Absolute Auto 3.8 x10*3/uL (2.0-8.3); Neutrophils Percent Auto 70.5 % (45-73); Platelet Count 221 X10*3/uL (160-400); Red Blood Count 2.86 X10*6/uL (4.20-5.50); Red Cell Distribution Width 14.9 % (11.0-16.0); White Blood Count 5.4 X10*3/uL (4.8-10.8)
[2024-06-14 17:21] LABS: Parathyroid Hormone Intact 101.2 pg/mL (8.7-77.1)
[2024-06-14 17:50] LABS: Anion Gap 15 (12-20); Blood Urea Nitrogen 60 mg/dL (9-16); Calcium 9.2 mg/dL (8.4-10.2); Carbon Dioxide 25 mmol/L (22-29); Chloride 109 mmol/L (96-108); Estimated Glomerular Filt Rate 12; Glucose Random 136 mg/dL (60-115); Phosphorus 5.1 mg/dL (2.7-4.5); Potassium 6.1 mmol/L (3.3-5.1); Sodium 143 mmol/L (135-145)
== END 2024-06-14 15:20 | disposition home or self-care (01) ==
LOC: HO.LAB 15:19
PROVIDERS: PCP Pediatrics; Visit Provider Internal Medicine Hypertension Specialist
DX: N18.4 Chronic kidney disease, stage 4 (severe) (principal); I50.32 Chronic diastolic (congestive) heart failure; D64.9 Anemia, unspecified; I10 Essential (primary) hypertension; E11.8 Type 2 diabetes mellitus with unspecified complications
CPT/HCPCS: 36415; 80048; 83970; 84100; 85025; 99212

== ENCOUNTER 2024-06-16 14:40 | Outpatient (REF) | payer OTHER, SELFPAY ==
[2024-06-16 16:25] LABS: Calcium 9.4 mg/dL (8.4-10.2)
[2024-06-16 16:36] LABS: Anion Gap 16 (12-20); Blood Urea Nitrogen 61 mg/dL (9-16); Calcium 9.2 mg/dL (8.4-10.2); Carbon Dioxide 24 mmol/L (22-29); Chloride 106 mmol/L (96-108); Estimated Glomerular Filt Rate 13; Glucose Random 210 mg/dL (60-115); Iron 49 mcg/dL (30-160); Percent Iron Saturation 28 % (15-50); Potassium 5.7 mmol/L (3.3-5.1); Sodium 140 mmol/L (135-145); Total Iron Binding Capacity 178 mcg/dL (228-428); Unsaturated Iron Binding 129 ug/dL
[2024-06-16 16:52] LABS: Ferritin 355 ng/mL (10-250)
== END 2024-06-16 14:41 | disposition home or self-care (01) ==
LOC: HO.LAB 14:40
PROVIDERS: Nurse Practitioner Family; PCP Pediatrics; Visit Provider Internal Medicine Hypertension Specialist
DX: N18.4 Chronic kidney disease, stage 4 (severe) (principal); D64.9 Anemia, unspecified; K21.9 Gastro-esophageal reflux disease without esophagitis; R10.13 Epigastric pain
CPT/HCPCS: 36415; 80048; 82310; 82728; 83540

== ENCOUNTER 2024-07-02 13:21 | Outpatient (AMB) | payer OTHER, SELFPAY ==
--- NOTE | 2024-07-02 13:24 | HO.NEPHOV_ITS ---
Vital Signs 07/02/24 13:27 Height 5 ft 1 in Weight 181 lb 8 oz BMI 34.3 BP 114/50 L Blood Pressure Location Rt brachial Position Sitting Pulse 65 Pulse Source Pulse Oximeter Pulse Oximetry (%) 95 Oxygen Delivery Method Room Air Intake Visit Reasons: Retacrit/ Conf Caseworker Required: Yes Caseworker Language: Technician'S Helper Services: Caseworker Offered & Declined [place] [place] Pt accompanied by daughter Iris) Accompanied by: Daughter Allergies faviola [FAVIOLA] Adverse Reaction (Intermediate, Verified 07/02/24 13:30) NAUSEA & VOMITING Penicillins [PENICILLINS] Adverse Reaction (Unknown, Verified 07/02/24 13:30) NAUSEA & VOMITING [facility] Allergy (Unknown, Uncoded 06/08/24 15:22) NAUSEA & VOMITING SARDINES Adverse Reaction (Intermediate, Uncoded 06/08/24 15:22) NAUSEA & VOMITING Medication List - Last Reconciled 07/02/24 by Sergio Mccartney MD acetaminophen mg PO albuterol sulfate 90 mcg/actuation (Ventolin HFA) 2 puffs inhalation Q4H PRN albuterol sulfate 2.5 mg (3 mL) inhalation Q4H PRN alendronate 70 mg PO QWEEK amlodipine 10 mg PO DAILY ammonium lactate 12% 1 appl topical DAILY apixaban (Eliquis) 5 mg PO BID atorvastatin 40 mg PO BEDTIME blood sugar diagnostic (FreeStyle Lite Strips) As directed calcium polycarbophil (Fiber (calcium polycarbophil)) mg PO cholecalciferol (vitamin D3) 50 mcg PO DAILY cyanocobalamin (vitamin B-12) 1,000 mcg PO DAILY docusate sodium 100 mg PO BID PRN duloxetine 60 mg PO DAILY famotidine 20 mg PO DAILY ferrous sulfate 325 mg PO DAILY fluticasone propionate 220 mcg/actuation (Flovent HFA) 2 puffs inhalation BID horzpkbkmdh-llersrpoq-yysgntsp 100-62.5-25 mcg (Trelegy Ellipta) 1 inh inhalation DAILY 30 days furosemide 40 mg PO DAILY gabapentin 100 mg PO DAILY glipizide 10 mg PO DAILY hydralazine 100 mg PO BID inhalational spacing device (Vortex Holding Chamber) As directed insulin aspart U-100 (Novolog FlexPen U-100 Insulin aspart) subcut ketorolac 0.5% drps ophthalmic (eye) lansoprazole 30 mg PO DAILY lidocaine-prilocaine 2.5-2.5 % 2.5 grams topical DAILY lfycka-jsopcypr-qesmdla 36,000-114,000- 180,000 unit (Creon) 1 cap PO QID meclizine 25 mg PO DAILY PRN methylcellulose (laxative) (Citrucel) 500 mg PO DAILY metoprolol tartrate 50 mg PO BID 90 days nebulizers As directed omega 3-rvb-eyr-fish oil 300 mg (120 mg- 180mg)-1,000 mg caps PO peg [id number]-raqskxyw 1-0.2-0.2 % (Artificial Tears ([id number])) drps ophthalmic (eye) polyethylene glycol 3350 (Miralax) 17 grams PO BID PRN 30 days sennosides (senna) 17.2 mg PO DAILY sildenafil (pulm.hypertension) 20 mg PO TID 90 days simethicone 180 mg PO TID PRN sitagliptin phosphate (Januvia) 25 mg PO DAILY sodium polystyrene sulfonate 15 grams PO DAILY sucralfate PO DAILY witch james 50% (Medi-Pads) pad topical HPI Comments Details: . Elderly woman with a history of longstanding hypertension along with diabetes mellitus , pancreatic insufficiency, moderate to severe obstructive sleep apnea and chronic kidney disease with a baseline creatinine about 2.5 mg/dL. She was previously seen by another curam developer but has been lost to follow-up. She was recently found to have serum creatinine of more than 3 with a potassium of 5.6. Kayexalate has been prescribed by Gastroenterology and she would and referred for further evaluation and management. Today she was accompanied by her daughter. No specific complaints like difficulty urination or hematuria. No nausea or vomiting. No shortness of breath. She has asthma but uses inhalers regularly. 04/19/24 Feels better Blood sugars in 200s; Still on Metformin On Kayexalate daily 06/14/24 c/o weakness ;c/o Asthma [facility] Medical History Chest discomfort Exocrine pancreatic insufficiency Shortness of breath ANKIT (obstructive sleep apnea) Asthma Pulmonary hypertension Vasovagal syncope Type 2 diabetes mellitus with unspecified complications Essential hypertension PAF (paroxysmal atrial fibrillation) Cardiomyopathy Surgical History No pertinent past surgical history Family History Father No problems noted. Mother No problems noted. Social History Alcohol intake: never Patient Tobacco Use Status: Never used Tobacco Physical Exam Vital Signs: Last Vital Signs Pulse 65 07/02/24 13:27 BP 114/50 L 07/02/24 13:27 Pulse Ox 95 07/02/24 13:27 Oxygen Delivery Method Room Air 07/02/24 13:27 BMI result Body Mass Index 34.3 Const General: comfortable; No acute distress Orientation/consciousness: patient oriented x3 Eyes General: appearance normal, both eyes and all related structures Visual Lion: normal visual lion by confrontation Neck Neck: Yes supple and Yes no JVD Resp Effort & Inspection: normal respiratory effort and respiratory effort not decreased Auscultation: rhonchi Cardio Palpation: no palpable S3 and no palpable S4 Heart sounds: no rubs GI Inspection: Yes normal to inspection Palpation (GI): Soft to palpation Percussion: Yes normal to percussion Auscultation: normal bowel sounds General: Yes no CVA tenderness Back/Spine/Pelvis Back: no CVA tenderness Skin General skin exam: no petechiae and no purpura Neuro General: patient oriented x3 and no focal motor deficits Extrem General: No clubbing and No edema Office Meds epoetin alesia-epbx 20,000 unit/mL injection solution Performing Provider: Sergio Mccartney MD [place] [facility] [place] [facility] Administered by: Sergio Mccartney MD on 07/02/24 13:36 Dose Route Admin Location Dispensed Lot Number Expiration Date [facility] [place] [employer] Super[employer] 20,000 unit subcut right arm 1 mL [id number] 08/22/25 5487-4387-08 [employer] Results Reviewed Nephrology Results: Hgb 8.7 g/dl (12.0-16.0) L 06/14/24 WBC 5.4 X10*3/uL (4.8-10.8) 06/14/24 Plt Count 221 X10*3/uL (160-400) 06/14/24 Sodium 140 mmol/L (135-145) 06/16/24 Potassium 5.7 mmol/L (3.3-5.1) H 06/16/24 Chloride 106 mmol/L (96-108) 06/16/24 Carbon Dioxide 24 mmol/L (22-29) 06/16/24 BUN 61 mg/dL (9-16) H 06/16/24 Creatinine 3.46 mg/dL (0.5-1.4) H 06/16/24 Calcium 9.2 mg/dL (8.4-10.2) 06/16/24 Phosphorus 5.1 mg/dL (2.7-4.5) H 06/14/24 PTH Intact 101.2 pg/mL (8.7-77.1) H 06/14/24 Renal US 04/30/24 Assessment & Plan Assessment & Plan (1) CKD (chronic kidney disease): Code(s): N18.9 - Chronic kidney disease, unspecified Category: Medical Qualifiers: Chronic kidney disease stage: stage 4 (severe) Qualified Code(s): N18.4 - Chronic kidney disease, stage 4 (severe) (2) Chronic diastolic (congestive) heart failure: Code(s): I50.32 - Chronic diastolic (congestive) heart failure Category: Medical (3) Anemia: Code(s): D64.9 - Anemia, unspecified Category: Medical (4) Essential hypertension: Code(s): I10 - Essential (primary) hypertension Category: Medical (5) Type 2 diabetes mellitus with unspecified complications: Code(s): E11.8 - Type 2 diabetes mellitus with unspecified complications Category: Medical Plan Elderly woman with stage IV CKD most likely due to longstanding hypertension and diabetes mellitus. She has no significant proteinuria at this time. No clinical evidence of obstruction. Based on the bland urine sediments I do not believe she is any active glomerular nephritis or interstitial disease at this time. She is a h/o significant hyperkalemia. This is probably due to decreased potassium excretion in the setting of advanced CKD. Hypertension blood pressure is well controlled. Recommendations Low-potassium diet I have discussed this with the patient and her daughter. Agree with Kayexalate daily Recheck potassium levels today and adjust dose No changes made to the antihypertensive medications. She she has no significant proteinuria I will hold off on using any MORGAN inhibitors or ARB use especially since she has hyperkalemia. Goal is to slow the progression of disease Continue to avoid nephrotoxic agents including NSAIDs. 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 Administered Retacrit 84663 units subcutaneously injury tolerated well. Next dose has been 3-4 weeks Orders: Orders Total Protein Urine Random 3 Weeks N18.4 - Chronic kidney disease, stage 4 (severe) Creatinine Urine 3 Weeks N18.4 - Chronic kidney disease, stage 4 (severe) Basic Metabolic Panel 3 Weeks N18.4 - Chronic kidney disease, stage 4 (severe) Complete Blood Count Auto Diff 3 Weeks N18.4 - Chronic kidney disease, stage 4 (severe) UA and rflx microscopic 3 Weeks N18.4 - Chronic kidney disease, stage 4 (severe) AMB Epoetin Injection Practice Supplied Today N40.1 - Benign prostatic hy perplasia with lower urinary tract symptoms Protein Electrophoresis, Serum 3 Weeks N18.4 - Chronic kidney disease, stage 4 (severe) Coding Level of Care Code Est Pt Level 4 (08397) Diagnoses Stage 4 chronic kidney disease N18.4 Chronic kidney disease stage: stage 4 (severe) Chronic diastolic (congestive) heart failure I50.32 Anemia D64.9 Essential hypertension I10 Type 2 diabetes mellitus with unspecified complications E11.8
[2024-07-02 13:27] VITALS: BP 114/50; PULSE 65; O2SAT 95; BMI 34.3
== END 2024-07-02 13:41 | disposition home or self-care (01) ==
PROVIDERS: PCP Pediatrics; Visit Provider Internal Medicine Hypertension Specialist
DX: I13.0 Hypertensive heart and chronic kidney disease with heart failure and stage 1 through stage 4 chronic kidney disease, or unspecified chronic kidney disease (principal); E11.22 Type 2 diabetes mellitus with diabetic chronic kidney disease; N18.4 Chronic kidney disease, stage 4 (severe); I50.32 Chronic diastolic (congestive) heart failure; D63.1 Anemia in chronic kidney disease; N40.1 Benign prostatic hyperplasia with lower urinary tract symptoms
CPT/HCPCS: 99214

== ENCOUNTER → 2024-07-02 13:21 | Outpatient (BNVA) | payer OTHER, SELFPAY | PROVIDERS: PCP Pediatrics; Visit Provider Internal Medicine Hypertension Specialist | DX: I13.0 Hypertensive heart and chronic kidney disease with heart failure and stage 1 through stage 4 chronic kidney disease, or unspecified chronic kidney disease (principal); E11.22 Type 2 diabetes mellitus with diabetic chronic kidney disease; N18.4 Chronic kidney disease, stage 4 (severe); I50.32 Chronic diastolic (congestive) heart failure; D63.1 Anemia in chronic kidney disease; K86.89 Other specified diseases of pancreas | CPT/HCPCS: 96372; 99212; Q5106 ==

== ENCOUNTER 2024-07-09 09:51 | Outpatient (REF) | payer OTHER, SELFPAY ==
[2024-07-09 10:22] LABS: MANUAL DIFF FLAG NO
[2024-07-09 10:55] LABS: Basophils Percent Auto 0.7 % (0-2); Eosinophils Absolute Auto 0.5 X10*3/uL (0.0-0.4); Eosinophils Percent Auto 11.1 % (0-4); Hematocrit 27.1 % (37.0-47.0); Hemoglobin 8.1 g/dl (12.0-16.0); Imm Gran Abs Auto 0.02 X10*3/uL (0.00-0.03); Imm Gran Pct Auto 0.5 % (0.0-0.4); Lymphocytes Absolute Auto 0.4 X10*3/uL (1.2-4.9); Lymphocytes Percent Auto 9.3 % (20-40); Mean Corpuscular HGB Conc 29.9 g/dl (31.0-35.0); Mean Corpuscular Hemoglobin 30.3 pg (27.0-33.0); Mean Corpuscular Volume 101.5 fL (80.0-98.0); Mean Platelet Volume 10.4 fL (9.4-12.3); Monocytes Absolute Auto 0.3 X10*3/uL (0.1-1.2); Monocytes Percent Auto 6.3 % (2-11); Neutrophils Absolute Auto 3.2 x10*3/uL (2.0-8.3); Neutrophils Percent Auto 72.1 % (45-73); Platelet Count 211 X10*3/uL (160-400); Red Blood Count 2.67 X10*6/uL (4.20-5.50); White Blood Count 4.4 X10*3/uL (4.8-10.8)
[2024-07-09 10:58] LABS: Appearance Urine Clear; Color Urine Yellow; Glucose Urine UA Negative (Negative); Leukocyte Esterase Urine Trace (Negative); Nitrite Urine Negative (Negative); PH 7.5 (5.0-9.0); UMIC TRIGGER UA YES; Urine Blood Negative (Negative); Urine Ketones Negative (Negative); Urine Protein Trace mg/dL (Neg-Trace)
[2024-07-09 11:01] LABS: Bacteria Urine None Seen (None Seen); Hyaline Casts Urine 0-2 /LPF (0-2); RBC Urine 0-2 /HPF (0-2); Squamous Epithelial Cell Urine 0-2 /HPF (0-2); WBC Urine 0-5 /HPF (0-5)
[2024-07-09 11:34] LABS: Anion Gap 18 (12-20); Blood Urea Nitrogen 60 mg/dL (9-16); Calcium 8.8 mg/dL (8.4-10.2); Carbon Dioxide 29 mmol/L (22-29); Chloride 103 mmol/L (96-108); Estimated Glomerular Filt Rate 14; Glucose Random 132 mg/dL (60-115); Potassium 4.2 mmol/L (3.3-5.1); Sodium 146 mmol/L (135-145)
[2024-07-09 12:16] LABS: Creatinine Urine 58.32 mg/dL; Total Protein Urine Random 15 mg/dL (<12)
[2024-07-12 22:04] LABS: Prot Elec - Alpha1 0.3 g/dL (0.2-0.3); Prot Elec - Alpha2 0.6 g/dL (0.5-0.9); Prot Elec - Beta 1 0.3 g/dL (0.4-0.6); Prot Elec - Beta 2 0.3 g/dL (0.2-0.5); Prot Elec - Total Protein 6.5 g/dL (6.1-8.1)
== END 2024-07-09 09:52 | disposition home or self-care (01) ==
LOC: HO.LAB 09:51
PROVIDERS: Absent Provider Internal Medicine Hypertension Specialist; PCP Pediatrics; Visit Provider Student in an Organized Health Care Education/Training Program
DX: N18.4 Chronic kidney disease, stage 4 (severe) (principal)
CPT/HCPCS: 36415; 80048; 81001; 82570; 84156; 84165; 85025

== ENCOUNTER 2024-07-12 14:26 | Outpatient (AMB) | payer OTHER, SELFPAY ==
--- NOTE | 2024-07-12 14:29 | HO.NEPHOV ---
Vital Signs 07/12/24 14:31 Height 5 ft 1 in Weight 180 lb BMI 34.0 BP 142/58 H Blood Pressure Location Lt brachial Position Sitting Pulse 72 Pulse Source Pulse Oximeter Pulse Oximetry (%) 90 L Oxygen Delivery Method Room Air Intake Visit Reasons: edema on legs/feet/face PCP ask for pt to be seen [employer] Required: Yes [employer] Name: paco [id number] Accompanied by: Daughter Allergies faviola [FAVIOLA] Adverse Reaction (Intermediate, Verified 07/12/24 14:34) NAUSEA & VOMITING Penicillins [PENICILLINS] Adverse Reaction (Unknown, Verified 07/12/24 14:34) NAUSEA & VOMITING [facility] Allergy (Unknown, Uncoded 06/08/24 15:22) NAUSEA & VOMITING SARDINES Adverse Reaction (Intermediate, Uncoded 06/08/24 15:22) NAUSEA & VOMITING Medication List - Last Reconciled 07/12/24 by Sergio Mccartney MD acetaminophen mg PO albuterol sulfate 90 mcg/actuation (Ventolin HFA) 2 puffs inhalation Q4H PRN albuterol sulfate 2.5 mg (3 mL) inhalation Q4H PRN alendronate 70 mg PO QWEEK amlodipine 10 mg PO DAILY ammonium lactate 12% 1 appl topical DAILY apixaban (Eliquis) 5 mg PO BID atorvastatin 40 mg PO BEDTIME blood sugar diagnostic (FreeStyle Lite Strips) As directed calcium polycarbophil (Fiber (calcium polycarbophil)) mg PO cholecalciferol (vitamin D3) 50 mcg PO DAILY cyanocobalamin (vitamin B-12) 1,000 mcg PO DAILY docusate sodium 100 mg PO BID PRN duloxetine 60 mg PO DAILY famotidine 20 mg PO DAILY ferrous sulfate 325 mg PO DAILY fluticasone propionate 220 mcg/actuation (Flovent HFA) 2 puffs inhalation BID hwwyrjvzifd-sznvwqflu-nykzoytv 100-62.5-25 mcg (Trelegy Ellipta) 1 inh inhalation DAILY 30 days furosemide 40 mg PO DAILY furosemide 20 mg PO DAILY gabapentin 100 mg PO DAILY glipizide 10 mg PO DAILY hydralazine 100 mg PO BID inhalational spacing device (Vortex Holding Chamber) As directed insulin aspart U-100 (Novolog FlexPen U-100 Insulin aspart) subcut ketorolac 0.5% drps ophthalmic (eye) lansoprazole 30 mg PO DAILY lidocaine-prilocaine 2.5-2.5 % 2.5 grams topical DAILY hhsdpa-rntheqpr-nyvosdy 36,000-114,000- 180,000 unit (Creon) 1 cap PO QID meclizine 25 mg PO DAILY PRN methylcellulose (laxative) (Citrucel) 500 mg PO DAILY metoprolol tartrate 50 mg PO BID 90 days nebulizers As directed omega 0-dkk-qld-fish oil 300 mg (120 mg- 180mg)-1,000 mg caps PO peg [id number]-zpddoxwf 1-0.2-0.2 % (Artificial Tears ([id number])) drps ophthalmic (eye) polyethylene glycol 3350 (Miralax) 17 grams PO BID PRN 30 days sennosides (senna) 17.2 mg PO DAILY sildenafil (pulm.hypertension) 20 mg PO TID 90 days simethicone 180 mg PO TID PRN sitagliptin phosphate (Januvia) 25 mg PO DAILY sucralfate PO DAILY witch james 50% (Medi-Pads) pad topical HPI Comments Details: . Elderly woman with a history of longstanding hypertension along with diabetes mellitus , pancreatic insufficiency, moderate to severe obstructive sleep apnea and chronic kidney disease with a baseline creatinine about 2.5 mg/dL. She was previously seen by another finishing range feeder but has been lost to follow-up. She was recently found to have serum creatinine of more than 3 with a potassium of 5.6. Kayexalate has been prescribed by Gastroenterology and she would and referred for further evaluation and management. Today she was accompanied by her daughter. No specific complaints like difficulty urination or hematuria. No nausea or vomiting. No shortness of breath. She has asthma but uses inhalers regularly. 04/19/24 Feels better Blood sugars in 200s; Still on Metformin On Kayexalate daily 06/14/24 c/o weakness ;c/o Asthma 07/12/24 Comes in with increasing edema and shortness of breath Gained 13 lbs in 1 month On LAsix 40 mg QD and additional 20mg has been added PFSH Medical History Chest discomfort Exocrine pancreatic insufficiency Shortness of breath ANKIT (obstructive sleep apnea) Asthma Pulmonary hypertension Vasovagal syncope Type 2 diabetes mellitus with unspecified complications Essential hypertension PAF (paroxysmal atrial fibrillation) Cardiomyopathy Surgical History No pertinent past surgical history Family History Father No problems noted. Mother No problems noted. Social History Alcohol intake: never Patient Tobacco Use Status: Never used Tobacco Physical Exam Vital Signs: Last Vital Signs Pulse 72 07/12/24 14:31 BP 142/58 H 07/12/24 14:31 Pulse Ox 90 L 07/12/24 14:31 Oxygen Delivery Method Room Air 07/12/24 14:31 BMI result Body Mass Index 34.0 Results Reviewed Nephrology Results: Hgb 8.1 g/dl (12.0-16.0) L 07/09/24 WBC 4.4 X10*3/uL (4.8-10.8) L 07/09/24 Plt Count 211 X10*3/uL (160-400) 07/09/24 Sodium 146 mmol/L (135-145) H 07/09/24 Potassium 4.2 mmol/L (3.3-5.1) 07/09/24 Chloride 103 mmol/L (96-108) 07/09/24 Carbon Dioxide 29 mmol/L (22-29) 07/09/24 BUN 60 mg/dL (9-16) H 07/09/24 Creatinine 3.10 mg/dL (0.5-1.4) H 07/09/24 Calcium 8.8 mg/dL (8.4-10.2) 07/09/24 Phosphorus 5.1 mg/dL (2.7-4.5) H 06/14/24 PTH Intact 101.2 pg/mL (8.7-77.1) H 06/14/24 Urine Protein Trace mg/dL (Neg-Trace) 07/09/24 Urine Creatinine 58.32 mg/dL 07/09/24 Renal US 04/30/24 Assessment & Plan Assessment & Plan (1) CKD (chronic kidney disease): Code(s): N18.9 - Chronic kidney disease, unspecified Category: Medical Qualifiers: Chronic kidney disease stage: stage 4 (severe) Qualified Code(s): N18.4 - Chronic kidney disease, stage 4 (severe) (2) Chronic diastolic (congestive) heart failure: Code(s): I50.32 - Chronic diastolic (congestive) heart failure Category: Medical (3) Anemia: Code(s): D64.9 - Anemia, unspecified Category: Medical (4) Essential hypertension: Code(s): I10 - Essential (primary) hypertension Category: Medical (5) Type 2 diabetes mellitus with unspecified complications: Code(s): E11.8 - Type 2 diabetes mellitus with unspecified complications Category: Medical Plan Elderly woman with stage IV CKD most likely due to longstanding hypertension and diabetes mellitus. She has no significant proteinuria at this time. No clinical evidence of obstruction. Based on the bland urine sediments I do not believe she is any active glomerular nephritis or interstitial disease at this time. She is a h/o significant hyperkalemia. This is probably due to decreased potassium excretion in the setting of advanced CKD. Hypertension blood pressure is well controlled. Recommendations Low-potassium diet I have discussed this with the patient and her daughter. HOLD Kayexalate due to mild Hypernatremia and ramiro Keep LASIX 40 mg QD Add Metalozone 2.5 mg QOD for 5 doses She she has no significant proteinuria I will hold off on using any MORGAN inhibitors or ARB use especially since she has hyperkalemia. Goal is to slow the progression of disease Continue to avoid nephrotoxic agents including NSAIDs. 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 Retacrit 15528 PRN for anemia Orders: Orders Basic Metabolic Panel 2 Weeks N18.4 - Chronic kidney disease, stage 4 (severe) Complete Blood Count Auto Diff 2 Weeks N18.4 - Chronic kidney disease, stage 4 (severe) Medications: New metolazone 2.5 mg PO Q OTHER DAY 5 tabs 0RF Discontinued sodium polystyrene sulfonate Discontinued Reason: Doctor's Order 15 grams PO DAILY 15 grams 0RF Hyperkalemia E87.5 - Hyperkalemia Coding Level of Care Code Est Pt Level 4 (89823) Diagnoses Stage 4 chronic kidney disease N18.4 Chronic kidney disease stage: stage 4 (severe) Chronic diastolic (congestive) heart failure I50.32 Anemia D64.9 Essential hypertension I10 Type 2 diabetes mellitus with unspecified complications E11.8
[2024-07-12 14:31] VITALS: BP 142/58; PULSE 72; O2SAT 90; BMI 34.0
== END 2024-07-12 14:52 | disposition home or self-care (01) ==
PROVIDERS: PCP Pediatrics; Visit Provider Internal Medicine Hypertension Specialist
DX: I13.0 Hypertensive heart and chronic kidney disease with heart failure and stage 1 through stage 4 chronic kidney disease, or unspecified chronic kidney disease (principal); E11.22 Type 2 diabetes mellitus with diabetic chronic kidney disease; N18.4 Chronic kidney disease, stage 4 (severe); I50.32 Chronic diastolic (congestive) heart failure; D63.1 Anemia in chronic kidney disease
CPT/HCPCS: 99214

== ENCOUNTER → 2024-07-12 14:26 | Outpatient (BNVA) | payer OTHER, SELFPAY | PROVIDERS: PCP Pediatrics; Visit Provider Internal Medicine Hypertension Specialist | DX: E11.22 Type 2 diabetes mellitus with diabetic chronic kidney disease (principal); I13.0 Hypertensive heart and chronic kidney disease with heart failure and stage 1 through stage 4 chronic kidney disease, or unspecified chronic kidney disease; I50.32 Chronic diastolic (congestive) heart failure; N18.4 Chronic kidney disease, stage 4 (severe); D63.1 Anemia in chronic kidney disease; R60.0 Localized edema | CPT/HCPCS: 99212 ==

== ENCOUNTER 2024-07-27 15:19 | Outpatient (REF) | payer OTHER, SELFPAY ==
[2024-07-27 15:46] LABS: Basophils Absolute Auto 0.1 X10*3/uL (0.0-0.2); Eosinophils Absolute Auto 1.2 X10*3/uL (0.0-0.4); Hematocrit 30.5 % (37.0-47.0); Hemoglobin 9.5 g/dl (12.0-16.0); Imm Gran Abs Auto 0.01 X10*3/uL (0.00-0.03); Imm Gran Pct Auto 0.2 % (0.0-0.4); Lymphocytes Absolute Auto 0.8 X10*3/uL (1.2-4.9); Lymphocytes Percent Auto 15.2 % (20-40); MANUAL DIFF FLAG SCAN; Mean Corpuscular HGB Conc 31.1 g/dl (31.0-35.0); Mean Corpuscular Volume 96.2 fL (80.0-98.0); Mean Platelet Volume 10.7 fL (9.4-12.3); Monocytes Absolute Auto 0.5 X10*3/uL (0.1-1.2); Monocytes Percent Auto 9.8 % (2-11); Neutrophils Absolute Auto 2.5 x10*3/uL (2.0-8.3); Neutrophils Percent Auto 49.8 % (45-73); Platelet Count 255 X10*3/uL (160-400); Red Blood Count 3.17 X10*6/uL (4.20-5.50); Red Cell Distribution Width 14.7 % (11.0-16.0); SCAN SMEAR FLAG 1
[2024-07-27 16:04] LABS: SLIDE REVIEW VERIFIED
[2024-07-27 16:21] LABS: Anion Gap 17 (12-20); Blood Urea Nitrogen 108 mg/dL (9-16); Calcium 9.1 mg/dL (8.4-10.2); Carbon Dioxide 21 mmol/L (22-29); Chloride 107 mmol/L (96-108); Estimated Glomerular Filt Rate 11; Glucose Random 192 mg/dL (60-115); Potassium 5.1 mmol/L (3.3-5.1); Sodium 140 mmol/L (135-145)
== END 2024-07-27 15:20 | disposition home or self-care (01) ==
LOC: HO.LAB 15:19
PROVIDERS: PCP Pediatrics; Visit Provider Internal Medicine Hypertension Specialist
DX: N18.4 Chronic kidney disease, stage 4 (severe) (principal)
CPT/HCPCS: 36415; 80048; 85025

== ENCOUNTER 2024-07-28 12:32 | Outpatient (REF) | payer OTHER, SELFPAY ==
[2024-07-28 14:57] LABS: Cholesterol 177 mg/dL (<200); HDL Cholesterol 52 mg/dL (>40); LDL Cholesterol Calculated 115 mg/dL (<100); Triglycerides 52 mg/dL (<150)
[2024-07-28 16:55] LABS: Appearance Urine Clear; Color Urine Yellow; Glucose Urine UA Negative (Negative); Leukocyte Esterase Urine Trace (Negative); Nitrite Urine Negative (Negative); PH 5.5 (5.0-9.0); UMIC TRIGGER UA YES; Urine Blood Negative (Negative); Urine Ketones Negative (Negative); Urine Protein Negative (Neg-Trace)
[2024-07-28 17:02] LABS: Bacteria Urine None Seen (None Seen); Hyaline Casts Urine 0-2 /LPF (0-2); RBC Urine 0-2 /HPF (0-2); Squamous Epithelial Cell Urine 0-2 /HPF (0-2); WBC Urine 0-5 /HPF (0-5)
== END 2024-07-28 12:33 | disposition home or self-care (01) ==
LOC: HO.CHCLDS 12:32
PROVIDERS: Internal Medicine Hypertension Specialist; Visit Provider Pediatrics
DX: E78.5 Hyperlipidemia, unspecified (principal)
CPT/HCPCS: 36415; 80061; 81001

== ENCOUNTER 2024-08-02 13:34 | Outpatient (AMB) | payer OTHER, SELFPAY ==
--- NOTE | 2024-08-02 12:04 | HO.NEPHOV ---
Intake Visit Reasons: Acute kidney failure/ Conf Allergies faviola [FAVIOLA] Adverse Reaction (Intermediate, Verified 07/12/24 14:34) NAUSEA & VOMITING Penicillins [PENICILLINS] Adverse Reaction (Unknown, Verified 07/12/24 14:34) NAUSEA & VOMITING [facility] Allergy (Unknown, Uncoded 06/08/24 15:22) NAUSEA & VOMITING SARDINES Adverse Reaction (Intermediate, Uncoded 06/08/24 15:22) NAUSEA & VOMITING HPI Comments Details: Elderly woman with a history of longstanding hypertension along with diabetes mellitus, pancreatic insufficiency, moderate to severe ANKIT, afib, cardiomyopathy, CHF and chronic kidney disease with a baseline creatinine about 2.5 mg/dL. She was found to have serum creatinine of more than 3 with a potassium of 5.6 in February 2024 Kayexalate has been prescribed by Gastroenterology and she would and referred for further evaluation and management. accompanied by her daughter. No specific complaints like difficulty urination or hematuria. No nausea or vomiting. No shortness of breath. She has asthma but uses inhalers regularly. 04/19/24 Feels better Blood sugars in 200s; Still on Metformin On Kayexalate daily 06/14/24 c/o weakness ;c/o Asthma 07/12/24 Comes in with increasing edema and shortness of breath Gained 13 lbs in 1 month On Lasix 40 mg QD and additional 20mg has been added 08/02/24 taking amlodipine 10mg daily, furosemide 40mg daily, hydralazine 100mg PO BID, metolazone 5mg PO BID, metoprolol 50mg PO BID for blood pressure control creatinine 3.90 on 07/27, previously 3.1 on 07/09 (06/16 3.46, 06/14 3.55, 04/19 2.68) UA on 07/27 negative for protein, blood, WBCs. trace leukocyte esterace. renal ultrasound on 04/30/24 unremarkable without cortical thinning/increased echogenicity, no hydronephrosis/calculi. [facility] Medical History Chest discomfort Exocrine pancreatic insufficiency Shortness of breath ANKIT (obstructive sleep apnea) Asthma Pulmonary hypertension Vasovagal syncope Type 2 diabetes mellitus with unspecified complications Essential hypertension PAF (paroxysmal atrial fibrillation) Cardiomyopathy Surgical History No pertinent past surgical history Family History Father No problems noted. Mother No problems noted. Social History Alcohol intake: never Patient Tobacco Use Status: Never used Tobacco Results Reviewed Nephrology Results: Hgb 9.5 g/dl (12.0-16.0) L 07/27/24 WBC 5.0 X10*3/uL (4.8-10.8) 07/27/24 Plt Count 255 X10*3/uL (160-400) 07/27/24 Sodium 140 mmol/L (135-145) 07/27/24 Potassium 5.1 mmol/L (3.3-5.1) 07/27/24 Chloride 107 mmol/L (96-108) 07/27/24 Carbon Dioxide 21 mmol/L (22-29) L 07/27/24 BUN 108 mg/dL (9-16) H 07/27/24 Creatinine 3.90 mg/dL (0.5-1.4) H 07/27/24 Calcium 9.1 mg/dL (8.4-10.2) 07/27/24 Phosphorus 5.1 mg/dL (2.7-4.5) H 06/14/24 PTH Intact 101.2 pg/mL (8.7-77.1) H 06/14/24 Urine Protein Negative mg/dL (Neg-Trace) 07/28/24 Urine Creatinine 58.32 mg/dL 07/09/24 Assessment & Plan Assessment & Plan (1) CKD (chronic kidney disease): Code(s): N18.9 - Chronic kidney disease, unspecified Category: Medical Qualifiers: Chronic kidney disease stage: stage 4 (severe) Qualified Code(s): N18.4 - Chronic kidney disease, stage 4 (severe) (2) Chronic diastolic (congestive) heart failure: Code(s): I50.32 - Chronic diastolic (congestive) heart failure Category: Medical (3) Anemia: Code(s): D64.9 - Anemia, unspecified Category: Medical (4) Essential hypertension: Code(s): I10 - Essential (primary) hypertension Category: Medical (5) Type 2 diabetes mellitus with unspecified complications: Code(s): E11.8 - Type 2 diabetes mellitus with unspecified complications Category: Medical Plan Elderly woman with stage IV CKD most likely due to longstanding hypertension and diabetes mellitus. She has no significant proteinuria at this time. No clinical evidence of obstruction. Based on the bland urine sediments I do not believe she is any active glomerular nephritis or interstitial disease at this time. She is a h/o significant hyperkalemia. This is probably due to decreased potassium excretion in the setting of advanced CKD. Hypertension blood pressure is well controlled. Recommendations Low-potassium diet I have discussed this with the patient and her daughter. HOLD Kayexalate due to mild Hypernatremia and edema Keep LASIX 40 mg QD Add Metalozone 2.5 mg QOD for 5 doses She she has no significant proteinuria I will hold off on using any MORGAN inhibitors or ARB use especially since she has hyperkalemia. Goal is to slow the progression of disease Continue to avoid nephrotoxic agents including NSAIDs. 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 Retacrit 42761 PRN for anemia Coding Diagnoses Stage 4 chronic kidney disease N18.4 Chronic kidney disease stage: stage 4 (severe) Chronic diastolic (congestive) heart failure I50.32 Anemia D64.9 Essential hypertension I10 Type 2 diabetes mellitus with unspecified complications E11.8
--- NOTE | 2024-08-02 13:34 | HO.NEPHOV_ITS ---
Vital Signs 08/02/24 13:35 Height 5 ft 1 in Weight 171 lb BMI 32.3 BP 140/52 H Blood Pressure Location Lt brachial Position Sitting Pulse 69 Pulse Source Pulse Oximeter Pulse Oximetry (%) 97 Oxygen Delivery Method Room Air Intake Visit Reasons: Acute kidney failure/ Conf Position Classification Manager Required: Yes Position Classification Manager Name: Tiffanie [id number] Accompanied by: Daughter Allergies faviola [FAVIOLA] Adverse Reaction (Intermediate, Verified 08/02/24 13:38) NAUSEA & VOMITING Penicillins [PENICILLINS] Adverse Reaction (Unknown, Verified 08/02/24 13:38) NAUSEA & VOMITING [facility] Allergy (Unknown, Uncoded 06/08/24 15:22) NAUSEA & VOMITING SARDINES Adverse Reaction (Intermediate, Uncoded 06/08/24 15:22) NAUSEA & VOMITING Medication List - Last Reconciled 08/02/24 by Sergio Mccartney MD acetaminophen mg PO albuterol sulfate 90 mcg/actuation (Ventolin HFA) 2 puffs inhalation Q4H PRN albuterol sulfate 2.5 mg (3 mL) inhalation Q4H PRN alendronate 70 mg PO QWEEK amlodipine 10 mg PO DAILY ammonium lactate 12% 1 appl topical DAILY apixaban (Eliquis) 5 mg PO BID atorvastatin 40 mg PO BEDTIME blood sugar diagnostic (FreeStyle Lite Strips) As directed calcium polycarbophil (Fiber (calcium polycarbophil)) mg PO cholecalciferol (vitamin D3) 50 mcg PO DAILY cyanocobalamin (vitamin B-12) 1,000 mcg PO DAILY docusate sodium 100 mg PO BID PRN duloxetine 60 mg PO DAILY famotidine 20 mg PO DAILY ferrous sulfate 325 mg PO DAILY fluticasone propionate 220 mcg/actuation (Flovent HFA) 2 puffs inhalation BID dointhocbiz-xlnlrdjgn-xgnioczg 100-62.5-25 mcg (Trelegy Ellipta) 1 inh inhalation DAILY 30 days furosemide 40 mg PO DAILY gabapentin 100 mg PO DAILY glipizide 10 mg PO DAILY hydralazine 100 mg PO BID inhalational spacing device (Vortex Holding Chamber) As directed insulin aspart U-100 (Novolog FlexPen U-100 Insulin aspart) subcut ketorolac 0.5% drps ophthalmic (eye) lansoprazole 30 mg PO DAILY lidocaine-prilocaine 2.5-2.5 % 2.5 grams topical DAILY blmlfe-audxeoxf-jopywdq 36,000-114,000- 180,000 unit (Creon) 1 cap PO QID meclizine 25 mg PO DAILY PRN methylcellulose (laxative) (Citrucel) 500 mg PO DAILY metolazone 2.5 mg PO Q OTHER DAY metoprolol tartrate 50 mg PO BID 90 days nebulizers As directed omega 3-rsx-rlu-fish oil 300 mg (120 mg- 180mg)-1,000 mg caps PO peg [id number]-buyabhhg 1-0.2-0.2 % (Artificial Tears ([id number])) drps ophthalmic (eye) polyethylene glycol 3350 (Miralax) 17 grams PO BID PRN 30 days sennosides (senna) 17.2 mg PO DAILY sildenafil (pulm.hypertension) 20 mg PO TID 90 days simethicone 180 mg PO TID PRN sitagliptin phosphate (Januvia) 25 mg PO DAILY sucralfate PO DAILY witch james 50% (Medi-Pads) pad topical HPI Comments Details: . Elderly woman with a history of longstanding hypertension along with diabetes mellitus , pancreatic insufficiency, moderate to severe obstructive sleep apnea and chronic kidney disease with a baseline creatinine about 2.5 mg/dL. She was previously seen by another latex caster but has been lost to follow-up. She was recently found to have serum creatinine of more than 3 with a potassium of 5.6. Kayexalate has been prescribed by Gastroenterology and she would and referred for further evaluation and management. Today she was accompanied by her daughter. No specific complaints like difficulty urination or hematuria. No nausea or vomiting. No shortness of breath. She has asthma but uses inhalers regularly. 04/19/24 Feels better Blood sugars in 200s; Still on Metformin On Kayexalate daily 06/14/24 c/o weakness ;c/o Asthma 07/12/24 Comes in with increasing edema and shortness of breath Gained 13 lbs in 1 month On Lasix 40 mg QD and additional 20mg has been added 08/02/24 Lost 10 lbs with additional diuretics Still tired and dyspneic on exertion BUN and creatinine of significantly increased. [facility] Medical History Chest discomfort Exocrine pancreatic insufficiency Shortness of breath ANKIT (obstructive sleep apnea) Asthma Pulmonary hypertension Vasovagal syncope Type 2 diabetes mellitus with unspecified complications Essential hypertension PAF (paroxysmal atrial fibrillation) Cardiomyopathy Surgical History No pertinent past surgical history Family History Father No problems noted. Mother No problems noted. Social History Alcohol intake: never Patient Tobacco Use Status: Never used Tobacco Physical Exam Vital Signs: Last Vital Signs Pulse 69 08/02/24 13:35 BP 140/52 H 08/02/24 13:35 Pulse Ox 97 08/02/24 13:35 Oxygen Delivery Method Room Air 08/02/24 13:35 BMI result Body Mass Index 32.3 Results Reviewed Nephrology Results: Hgb 9.5 g/dl (12.0-16.0) L 07/27/24 WBC 5.0 X10*3/uL (4.8-10.8) 07/27/24 Plt Count 255 X10*3/uL (160-400) 07/27/24 Sodium 140 mmol/L (135-145) 07/27/24 Potassium 5.1 mmol/L (3.3-5.1) 07/27/24 Chloride 107 mmol/L (96-108) 07/27/24 Carbon Dioxide 21 mmol/L (22-29) L 07/27/24 BUN 108 mg/dL (9-16) H 07/27/24 Creatinine 3.90 mg/dL (0.5-1.4) H 07/27/24 Calcium 9.1 mg/dL (8.4-10.2) 07/27/24 Phosphorus 5.1 mg/dL (2.7-4.5) H 06/14/24 PTH Intact 101.2 pg/mL (8.7-77.1) H 06/14/24 Urine Protein Negative mg/dL (Neg-Trace) 07/28/24 Urine Creatinine 58.32 mg/dL 07/09/24 Assessment & Plan Assessment & Plan (1) CKD (chronic kidney disease): Code(s): N18.9 - Chronic kidney disease, unspecified Category: Medical Qualifiers: Chronic kidney disease stage: stage 4 (severe) Qualified Code(s): N18.4 - Chronic kidney disease, stage 4 (severe) (2) Chronic diastolic (congestive) heart failure: Code(s): I50.32 - Chronic diastolic (congestive) heart failure Category: Medical (3) Anemia: Code(s): D64.9 - Anemia, unspecified Category: Medical (4) Essential hypertension: Code(s): I10 - Essential (primary) hypertension Category: Medical (5) Type 2 diabetes mellitus with unspecified complications: Code(s): E11.8 - Type 2 diabetes mellitus with unspecified complications Category: Medical Plan Elderly woman with advanced CKD approaching end stage renal disease most likely due to longstanding hypertension and diabetes mellitus. Currently with significant fluid overload She has no significant proteinuria at this time. No clinical evidence of obstruction. Based on the bland urine sediments I do not believe she is any active glomerular nephritis or interstitial disease at this time. She is a h/o significant hyperkalemia. This is probably due to decreased potassium excretion in the setting of advanced CKD. Hypertension blood pressure is well controlled. Recommendations Daily has advanced renal failure approaching end-stage renal disease. With high dose of Lasix renal function has worsened. She is still has fluid overload. I believe she has reached end stage renal disease. I have discussed this with the patient and her daughter. And her granddaughter over the phone. I will suggested to come into the hospital for further management. Plan would be to hold Eliquis and transition to heparin prior to inserting dialysis catheter. While in hospital we will attempt IV diuretics to see if there is any improvement in respiratory status. She she has no significant proteinuria I will hold off on using any MORGAN inhibitors or ARB use especially since she has hyperkalemia. Continue to avoid nephrotoxic agents including NSAIDs. 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 Retacrit [id number] PRN for anemia Coding Level of Care Code Est Pt Level 4 (93009) Diagnoses Stage 4 chronic kidney disease N18.4 Chronic kidney disease stage: stage 4 (severe) Chronic diastolic (congestive) heart failure I50.32 Anemia D64.9 Essential hypertension I10 Type 2 diabetes mellitus with unspecified complications E11.8
[2024-08-02 13:35] VITALS: BP 140/52; PULSE 69; O2SAT 97; BMI 32.3
== END 2024-08-02 14:16 | disposition home or self-care (01) ==
PROVIDERS: PCP Pediatrics; Visit Provider Nurse Practitioner Family
DX: I13.0 Hypertensive heart and chronic kidney disease with heart failure and stage 1 through stage 4 chronic kidney disease, or unspecified chronic kidney disease (principal); E11.22 Type 2 diabetes mellitus with diabetic chronic kidney disease; N18.4 Chronic kidney disease, stage 4 (severe); I50.32 Chronic diastolic (congestive) heart failure; D63.1 Anemia in chronic kidney disease
CPT/HCPCS: 99214

== ENCOUNTER → 2024-08-02 13:34 | Outpatient (BNVA) | payer OTHER, SELFPAY | PROVIDERS: PCP Pediatrics; Visit Provider Nurse Practitioner Family | DX: I13.0 Hypertensive heart and chronic kidney disease with heart failure and stage 1 through stage 4 chronic kidney disease, or unspecified chronic kidney disease (principal); E11.22 Type 2 diabetes mellitus with diabetic chronic kidney disease; N18.4 Chronic kidney disease, stage 4 (severe); I50.32 Chronic diastolic (congestive) heart failure; D63.1 Anemia in chronic kidney disease | CPT/HCPCS: 99212 ==

== ENCOUNTER 2024-08-03 10:46 | Inpatient (IN) | payer OTHER, SELFPAY ==
--- NOTE | ~2024-08-03 | XR_ITS ---
EXAMINATION: XR CHEST CLINICAL INFORMATION: Chest pain COMPARISON: 04/02/2023 TECHNIQUE: 2 views of the chest were obtained. FINDINGS: Mildly prominent cardiac silhouette. Aortic calcifications. Mediastinum within normal limits. No gross vascular congestion. Linear atelectasis in the right upper lobe. No consolidations or effusions. Demineralization and degenerative changes. XR/XR chest 2V IMPRESSION: Right upper lobe atelectasis. Electronically signed by: Angela Rizzo MD 08/03/2024 11:58 AM [facility]
--- NOTE | ~2024-08-03 | IR_ITS ---
CLINICAL HISTORY: End-stage renal disease. The patient presents to interventional radiology for placement of a tunneled central venous catheter for hemodialysis. PROCEDURES: 1. Real-time ultrasound-guided access into the right internal jugular vein after documentation of selected vessel patency, and permanent imaging storing in the patient record. 2. Placement of a 14.5 fr 23 cm tunneled, dual-lumen hemodialysis catheter. Clinician: Julien Oleary PA-C MEDICATIONS: -Fentanyl 25 mcg, Lidocaine 1% 10 mL SQ. -Antibiotics: Ancef -For additional details, please see nursing flowsheet. COMPLICATIONS: None. ESTIMATED BLOOD LOSS: <5 ml SPECIMENS: None FLUOROSCOPY TIME: 0.8 min PROCEDURE NOTE: The procedure, risks, benefits, and alternatives were carefully explained to patient's granddaughter, and informed consent was obtained. The patient was placed supine on the fluoroscopy table. A timeout was performed. The right neck and chest was prepped and draped in usual sterile fashion. Local anesthesia was administered to the access site with lidocaine. Under ultrasound guidance, the right internal jugular vein was accessed with a 5 Fr micropuncture set. A 0.035 in wire was advanced to the IVC to maintain access during the tunneling process. Next, subcutaneous lidocaine was administered to the chest. Using blunt dissection, a subcutaneous tunnel was created that connects from the upper chest to the venotomy site. The dialysis catheter was pulled through the tunnel. The tract in the vein was dilated and a peel-away sheath was advanced over the wire. The catheter was advanced through the sheath, which was subsequently peeled away. The catheter was tested, flushed, and sutured to the skin with its tip in the high right atrium. A permanent fluoroscopic image of the chest was saved to PACS. The catheter ports were packed with heparin per routine protocol. FINDINGS: 1. Patent right internal jugular vein. 2. Placement of a tunneled, dual-lumen hemodialysis catheter as above. 3. Catheter flushes and aspirates very well with a 10 mL syringe. No pneumothorax. IR/IR cvc insert central tunnel IMPRESSION: Placement of a tunneled hemodialysis catheter in the right internal jugular vein. PLAN: -The catheter may be used immediately. This procedure was performed by Julien Oleary PA-C, and directly supervised by Dr. Alvarado. Electronically signed by: Sanket Alvarado MD 08/05/2024 01:29 PM EST
--- NOTE | ~2024-08-03 | IR_ITS ---
CLINICAL HISTORY: End-stage renal disease. The patient presents to interventional radiology for placement of a tunneled central venous catheter for hemodialysis. PROCEDURES: 1. Real-time ultrasound-guided access into the right internal jugular vein after documentation of selected vessel patency, and permanent imaging storing in the patient record. 2. Placement of a 14.5 fr 23 cm tunneled, dual-lumen hemodialysis catheter. Clinician: Julien Oleary PA-C MEDICATIONS: -Fentanyl 25 mcg, Lidocaine 1% 10 mL SQ. -Antibiotics: Ancef -For additional details, please see nursing flowsheet. COMPLICATIONS: None. ESTIMATED BLOOD LOSS: <5 ml SPECIMENS: None FLUOROSCOPY TIME: 0.8 min PROCEDURE NOTE: The procedure, risks, benefits, and alternatives were carefully explained to patient's granddaughter, and informed consent was obtained. The patient was placed supine on the fluoroscopy table. A timeout was performed. The right neck and chest was prepped and draped in usual sterile fashion. Local anesthesia was administered to the access site with lidocaine. Under ultrasound guidance, the right internal jugular vein was accessed with a 5 Fr micropuncture set. A 0.035 in wire was advanced to the IVC to maintain access during the tunneling process. Next, subcutaneous lidocaine was administered to the chest. Using blunt dissection, a subcutaneous tunnel was created that connects from the upper chest to the venotomy site. The dialysis catheter was pulled through the tunnel. The tract in the vein was dilated and a peel-away sheath was advanced over the wire. The catheter was advanced through the sheath, which was subsequently peeled away. The catheter was tested, flushed, and sutured to the skin with its tip in the high right atrium. A permanent fluoroscopic image of the chest was saved to PACS. The catheter ports were packed with heparin per routine protocol. FINDINGS: 1. Patent right internal jugular vein. 2. Placement of a tunneled, dual-lumen hemodialysis catheter as above. 3. Catheter flushes and aspirates very well with a 10 mL syringe. No pneumothorax. IR/IR us guide venous access IMPRESSION: Placement of a tunneled hemodialysis catheter in the right internal jugular vein. PLAN: -The catheter may be used immediately. This procedure was performed by Julien Oleary PA-C, and directly supervised by Dr. Alvarado. Electronically signed by: Sanket Alvarado MD 08/05/2024 01:29 PM [facility]
[2024-08-03 10:54] VITALS: BP 136/95; PULSE 66; RESP 18; TEMP 36.7; O2SAT 99; BMI 32.2
--- NOTE | 2024-08-03 11:05 | ED.GENADULT ---
HPI - General Adult General Chief complaint: General Medical Stated complaint: sent for dialysis Time Seen by Provider: 08/03/24 18:16 Source: family Mode of arrival: wheelchair Limitations: altered mental status History of Present Illness ED Provider: Bev Fry NP HPI narrative: Patient is a 78-year-old female history of dementia, patient's granddaughter at bedside provides majority of history. Patient's daughter is in fact healthcare proxy. Patient has been having increasing fatigue, decreased urinary output. Per the granddaughter she Was advised by textile colorist dyer that she should come to the [facility] [place] [facility] to have a dialysis catheter placed in that she may receive her first dialysis treatment. She states that patient was recently oral Lasix but was discontinued. Related Data Home Medications ?Medication ?Instructions ?Recorded ?Confirmed alendronate 70 mg tablet 70 mg PO MO 11/27/20 08/03/24 atorvastatin 40 mg tablet 40 mg PO BEDTIME 11/27/20 08/03/24 docusate sodium 100 mg capsule 100 mg PO BID PRN constipation 11/27/20 08/03/24 gabapentin 100 mg capsule 200 mg PO BEDTIME 11/27/20 08/03/24 simethicone 180 mg capsule 180 mg PO TID PRN Constipation 11/27/20 08/03/24 albuterol sulfate 90 mcg/actuation 2 puff inhalation Q4H PRN 05/14/22 08/03/24 aerosol inhaler (Ventolin HFA) Wheezing/SOB nebulizers 04/02/23 08/02/24 ammonium lactate 12 % topical cream 1 appl topical DAILY 12/02/23 08/03/24 meclizine 25 mg tablet 25 mg PO DAILY PRN Dizziness 12/02/23 08/03/24 peg [id number]-[id number]-[id number] 1 1 drp ophthalmic (eye) DAILY PRN 12/02/23 08/03/24 %-0.2 %-0.2 % eye drops Dry Eye(S) (Artificial Tears ([id number])) cholecalciferol (vitamin D3) 50 50 mcg PO DAILY 12/04/23 08/03/24 mcg (2,000 unit) capsule omega-3 300 mg-dha 120 mg-epa 180 1 cap PO DAILY 12/04/23 08/03/24 mg-fish oil 1,000 mg capsule famotidine 20 mg tablet 20 mg PO DAILY 01/01/24 08/03/24 sennosides 8.6 mg tablet (senna) 8.6 - 17.2 mg PO DAILY 01/01/24 08/03/24 cyanocobalamin (vitamin B-12) 1,000 mcg PO DAILY 02/09/24 08/03/24 1,000 mcg tablet ketorolac 0.5 % eye drops 1 drp ophthalmic (eye) DAILY PRN 02/09/24 08/03/24 Dry Eye(S) ferrous sulfate 325 mg (65 mg 325 mg PO DAILY 03/29/24 08/03/24 iron) tablet acetaminophen 325 mg tablet 650 mg PO DAILY PRN Pain (Scale 04/13/24 08/03/24 Score 1-3) blood sugar diagnostic (FreeStyle #10 ea 04/13/24 08/02/24 Lite Strips) calcium polycarbophil 625 mg 625 mg PO DAILY 04/13/24 08/03/24 tablet (Fiber (calcium polycarbophil)) sucralfate 1 gram tablet 1 g PO DAILY 04/13/24 08/03/24 insulin aspart U-100 100 unit/mL See Protocol subcut .TIDPC 06/14/24 08/03/24 (3 mL) subcutaneous pen (Novolog FlexPen U-100 Insulin aspart) hydrocortisone 1 % topical ointment 1 appl topical DAILY PRN itch 08/03/24 08/03/24 [id number]-ukgbmsas-hssidar 2 cap PO DAILY 08/03/24 08/03/24 36,000-114,000-180,000 unit capsule,delay rel (Creon) metolazone 2.5 mg tablet 2.5 mg PO DAILY PRN Dizziness 08/03/24 08/03/24 multivitamin-ferrous 1 tab PO DAILY 08/03/24 08/03/24 fumarate-folic acid 18 mg-400 mcg tablet (Centrum Women) sitagliptin phosphate 50 mg tablet 50 mg DAILY 08/03/24 08/03/24 (Januvia) sodium polystyrene sulfonate 15 g PO BEDTIME PRN Hyperkalemia 08/03/24 08/03/24 vit C 250 mg-E 90 mg-zinc 40 1 tab PO BID 08/03/24 08/03/24 mg-copper 1 nx-gjehgv-xgposz chew tablet (PreserVision AREDS-2) Previous Rx's ?Medication ?Instructions ?Recorded furosemide 40 mg tablet 40 mg PO DAILY #90 tabs 01/23/21 fluticasone fur. 100 mcg-umeclid 1 inh inhalation DAILY 30 days #60 05/15/22 62.5 mcg-vilant 25 mcg ea inhalat.powder (Trelegy Ellipta) inhalational spacing device #1 ea 06/18/22 (Vortex Holding Chamber) apixaban 5 mg tablet (Eliquis) 5 mg PO BID #180 tabs 07/02/22 amlodipine 10 mg tablet 10 mg PO DAILY #90 tabs 09/30/22 albuterol sulfate 2.5 mg/3 mL 2.5 mg (3 mL) inhalation Q4H PRN 11/18/22 (0.083 %) solution for nebulization for wheezing #180 mL sildenafil (pulm.hypertension) 20 20 mg PO TID 90 days #270 tabs 07/21/23 mg tablet metoprolol tartrate 50 mg tablet 50 mg PO BID 90 days #180 tabs 10/23/23 hydralazine 100 mg tablet 100 mg PO BID #60 tabs 04/06/24 lansoprazole 30 mg capsule,delayed 30 mg PO DAILY #30 caps 04/13/24 release polyethylene glycol 3350 17 17 g PO BID PRN constipation 30 05/21/24 gram/dose oral powder (Miralax) days #1,020 grams Allergies Allergy/AdvReac Type Severity Reaction Status Date / Time faviola [FAVIOLA] AdvReac Intermediate NAUSEA & Verified 08/03/24 10:55 VOMITING Penicillins [PENICILLINS] AdvReac Unknown NAUSEA & Verified 08/03/24 10:55 VOMITING YUCA Allergy Unknown NAUSEA & Uncoded 06/08/24 15:22 VOMITING SARDINES AdvReac Intermediate NAUSEA & Uncoded 06/08/24 15:22 VOMITING Review of Systems Review of Systems: Yes Unobtainable due to mental status PMFSH Past Medical History Attestation statement: The following information was validated with the patient. Source: old records reviewed Medical History Chest discomfort Exocrine pancreatic insufficiency Shortness of breath ANKIT (obstructive sleep apnea) Asthma Pulmonary hypertension Vasovagal syncope Type 2 diabetes mellitus with unspecified complications Essential hypertension PAF (paroxysmal atrial fibrillation) Cardiomyopathy Surgical History No pertinent past surgical history Family History Family History Father No problems noted. Mother No problems noted. Social History Social History Alcohol intake: never Patient Tobacco Use Status: Never used Tobacco Advance Directives: No Advance Directives Information Provided: Yes Do you have a plan to hurt others: No Plan Physical Exam ED Vital Signs: Vital Signs - 24 hr 08/03/24 10:54 08/03/24 19:25 Temperature 98.1 F 97.6 F Pulse Rate 66 63 Respiratory Rate 18 16 Blood Pressure 136/95 H 171/62 H Pulse Oximetry 99 97 Oxygen Delivery Method Room Air Room Air BMI result Body Mass Index 32.2 Appearance: Alert.? No acute distress.?Normal affect. Eyes: Pupils equal, round and reactive to light.? ENT: Pharynx normal.?? Neck: Normal inspection.? Neck supple.?? CVS: Heart sounds normal. Normal heart rate and rhythm.? Pulses normal.?? Respiratory: No respiratory distress.? Lung sounds rales bilaterally Abdomen: Soft and non-tender. Normoactive bowel sounds. Skin: Skin warm and dry.? Normal skin color.? Extremities: No lower extremity edema.? No calf ttp? Neuro: Moves all extremities spontaneously. Sensation intact bilaterally. No focal neuro deficits. Course Course Course Narrative: This is a rapid medical exam performed by Jagdeep Acosta NP: Additional HPI, ROS, PE not included below will be deferred to primary provider. Patient is a 78-year-old Ukrainian speaking female with history of CKD, T2DM, paroxysmal afib on Eliquis, exocrine pancreatic insufficiency, CHF, asthma, ANKIT, pulmonary HTN, anemia, HTN, cardiomyopathy presenting to the ED stating the she was referred by at yesterday's visit. She complains of chronic chest pain and fatigue. Dr. Mccartney called ED, states patient is fluid overloaded, needs IV lasix before dialysis, he cannot manage outpt. Call or tiger text him when she is in a room. Plan: EKG, labs, CXR Reevaluation(s) Reevaluation #1: I spoke with patient's textile colorist dyer, Dr. Mccartney who advises that patient has advancing chronic kidney disease and clinically appears significantly fluid volume overloaded, unfortunately she has failed outpatient diuretic she is making minimal urinary output. He felt that she would be best suited to come into the hospital so that she can receive IV diuresis while her Eliquis is on hold, a dialysis catheter may be placed and she will have her 1st few dialysis treatment so that she may be monitored closely. He advises that she also received Epogen tomorrow as the granddaughter expressed concern that she missed her dosing today. All the above information was discussed with granddaughter who was at bedside as well as her healthcare proxy Mckenna Hobbs by phone with use of the field underwriter. All questions were answered. Time: 18:46 Medications Administered Generic Name Dose Route Start Last Admin Trade Name Freq PRN Reason Stop Dose Admin Enoxaparin Sodium 80 mg 08/03/24 21:00 08/03/24 21:31 Enoxaparin Sodium 80 Mg/0.8 Ml Syringe 1 mg/kg (80 mg) 80 mg SUBCUT Administration Q24H [facility] Insulin Human Lispro 0 unit 08/03/24 21:00 08/03/24 21:27 Insulin Lispro 100 Unit/Ml 3 Ml Vial SUBCUT 4 unit QIDACHS [facility] Administration Protocol Discontinued Medications Generic Name Dose Route Start Last Admin Trade Name Freq PRN Reason Stop Dose Admin Furosemide 40 mg 08/03/24 19:04 08/03/24 19:52 Furosemide 40 Mg/4 Ml Vial IVPUSH 08/03/24 19:05 40 mg ONCE ONE Administration Protocol Furosemide 40 mg 08/03/24 20:14 08/03/24 21:30 Furosemide 40 Mg/4 Ml Vial IVPUSH 08/03/24 20:15 40 mg ONCE ONE Administration Protocol Medical Decision Making Medical Decision Making [facility] Narrative: Patient is a 78-year-old Ukrainian speaking female with history of CKD, T2DM, paroxysmal afib on Eliquis, exocrine pancreatic insufficiency, CHF, asthma, ANKIT, pulmonary HTN, anemia, HTN, cardiomyopathy who presents emergency department for evaluation as per HPI. Overall she appears fatigued, she answers some basic questions but majority of history is provided by her granddaughter who is at bedside. Will obtain CBC to evaluate for leukocytosis/ anemia, CMP and lipase to evaluate for abnormal electrolytes /abnormal renal function/ abnormal hepatic/biliary function, BNP, Chest x-ray to evaluate for consolidation/ infiltrate/ mass/ pulmonary congestion and Urinalysis. Differential Diagnosis Differential Diagnoses: The differential diagnosis associated with the presentation includes (See narrative above and course narrative for further detail) Admission/Observation Consideration of admission/observation: Escalation of care including admission/observation considered Consult Healthcare Provider Management of the patient was discussed with: Hospitalist (Dr. Loera who accepts patient for admission to medicine service) and Chief Catalyst Operator (See course narrative) Lab Data MDM Lab Attestation statement: I reviewed the patient's lab results. No leukocytosis, chronic anemia, no thrombocytopenia. Hyperkalemia 5.5, DENI on CKD, up trending BNP; 516. Urinalysis without evidence of infection. Viral serologies negative. 08/03/24 11:43 08/03/24 11:43 Labs: Lab Results 08/03/24 08/03/24 Range/Units 11:43 15:58 WBC 5.1 (4.8-10.8) X10*3/uL RBC 3.10 L (4.20-5.50) X10*6/uL Hgb 9.1 L (12.0-16.0) g/dl Hct 30.0 L (37.0-47.0) % MCV 96.8 (80.0-98.0) fL MCH 29.4 (27.0-33.0) pg MCHC 30.3 L (31.0-35.0) g/dl RDW 14.9 (11.0-16.0) % Plt Count 206 (160-400) X10*3/uL MPV 10.8 (9.4-12.3) fL Immature Gran % (Auto) 0.2 (0.0-0.4) % Neut % (Auto) 51.2 (45-73) % Lymph % (Auto) 14.8 L (20-40) % [place] % (Auto) 5.9 (2-11) % Eos % (Auto) 27.1 H (0-4) % Baso % (Auto) 0.8 (0-2) % Lymph # (Auto) 0.8 L (1.2-4.9) X10*3/uL [place] # (Auto) 0.3 (0.1-1.2) X10*3/uL Eos # (Auto) 1.4 H (0.0-0.4) X10*3/uL Baso # (Auto) 0.0 (0.0-0.2) X10*3/uL Abs Immat Gran (auto) 0.01 (0.00-0.03) X10*3/uL Absolute Neuts (auto) 2.6 (2.0-8.3) x10*3/uL Absolute Nucleated RBC 0.000 (0.0-0.012) X10*3/uL Nucleated RBC % (auto) 0.0 (0.0-0.2) /100WBC Smear Tech's Comments VERIFIED PT 12.9 H (10.9-12.4) SEC INR 1.1 (0.9-1.1) APTT 35.1 (26.0-36.8) SEC Sodium 140 (135-145) mmol/L Potassium 5.5 H (3.3-5.1) mmol/L Chloride 108 (96-108) mmol/L Carbon Dioxide 22 (22-29) mmol/L Anion Gap 16 (12-20) BUN 115 H (9-16) mg/dL Creatinine 3.78 H (0.5-1.4) mg/dL Estim Creat Clear Calc 11.3 Estimated GFR 12 POC Glucose 102 (60-115) mg/dL Random Glucose 264 H (60-115) mg/dL Calcium 9.6 (8.4-10.2) mg/dL Magnesium 2.9 H (1.6-2.6) mg/dL Total Bilirubin 0.3 (0.0-1.0) mg/dL AST 15 (5-31) U/L ALT 10 (0-31) U/L Alkaline Phosphatase 43 (39-117) U/L Troponin I High Sens 8.6 (<3.5-17.0) ng/L B-Natriuretic Peptide 516 H (<100) pg/mL Total Protein 7.3 (6.5-8.0) g/dL Albumin 4.0 (3.5-5.0) g/dL Influenza Type A (PCR) NEGATIVE (Negative) Influenza Type B (PCR) NEGATIVE (Negative) RSV RNA Qual (PCR) NEGATIVE (Negative) SARS-CoV-2 RNA (RT-PCR) NEGATIVE (Negative) Independent Interpretation I performed an independent interpretation of an: EKG and Plain X-Ray (No Pleural effusions or pulmonary vascular congestion) Interpretation: EKG reveals a normal sinus rhythm with ventricular rate of 63, QTC 458, no ST elevation, no ST depression, no acute ischemic changes. Radiology Impression Discussion of test interpretation with radiology: I have reviewed the radiologist's reading. Radiologist Impression: XR/XR chest 2V IMPRESSION: Right upper lobe atelectasis. Independent Historian Clinical information obtained from an independent historian. History obtained from or confirmed by: Other (Daughter and granddaughter) External Record Review External record reviewed: Outpatient record Chronic Conditions Patient?s care impacted by: Other (See narrative above) Discharge Plan Discharge Clinical Impression: Chronic kidney disease, Congestive heart failure Patient Disposition: Admitted As Inpatient
--- NOTE | 2024-08-03 11:13 | ECG_ITS ---
Test Reason : chest pain Blood Pressure : / mmHG Vent. Rate : 063 BPM Atrial Rate : 063 BPM P-R Int : 180 ms QRS Dur : 082 ms QT Int : 448 ms P-R-T Axes : 080 056 073 degrees QTc Int : 458 ms Normal sinus rhythm with sinus arrhythmia Cannot rule out Anterior infarct , age undetermined Abnormal ECG When compared with ECG of 04-AUG-2023 14:46, No significant change was found Referred By: Maricel Acosta Electronically Signed By:Pee Borges
[2024-08-03 11:57] LABS: Basophils Percent Auto 0.8 % (0-2); Eosinophils Absolute Auto 1.4 X10*3/uL (0.0-0.4); Eosinophils Percent Auto 27.1 % (0-4); Hemoglobin 9.1 g/dl (12.0-16.0); Imm Gran Abs Auto 0.01 X10*3/uL (0.00-0.03); Imm Gran Pct Auto 0.2 % (0.0-0.4); Lymphocytes Absolute Auto 0.8 X10*3/uL (1.2-4.9); Lymphocytes Percent Auto 14.8 % (20-40); MANUAL DIFF FLAG SCAN; Mean Corpuscular HGB Conc 30.3 g/dl (31.0-35.0); Mean Corpuscular Hemoglobin 29.4 pg (27.0-33.0); Mean Corpuscular Volume 96.8 fL (80.0-98.0); Mean Platelet Volume 10.8 fL (9.4-12.3); Monocytes Absolute Auto 0.3 X10*3/uL (0.1-1.2); Monocytes Percent Auto 5.9 % (2-11); Neutrophils Absolute Auto 2.6 x10*3/uL (2.0-8.3); Neutrophils Percent Auto 51.2 % (45-73); Platelet Count 206 X10*3/uL (160-400); Red Cell Distribution Width 14.9 % (11.0-16.0); SCAN SMEAR FLAG 1; White Blood Count 5.1 X10*3/uL (4.8-10.8)
[2024-08-03 12:04] LABS: INTERNATIONAL NORM RATIO 1.1 (0.9-1.1); Prothrombin Time 12.9 SEC (10.9-12.4)
[2024-08-03 12:07] LABS: Partial Thromboplastin Time 35.1 SEC (26.0-36.8)
[2024-08-03 12:09] LABS: Alanine Aminotransferase 10 U/L (0-31); Alkaline Phosphatase 43 U/L (39-117); Anion Gap 16 (12-20); Aspartate Amino Transferase 15 U/L (5-31); Bilirubin Total 0.3 mg/dL (0.0-1.0); Blood Urea Nitrogen 115 mg/dL (9-16); Calcium 9.6 mg/dL (8.4-10.2); Carbon Dioxide 22 mmol/L (22-29); Chloride 108 mmol/L (96-108); Creatinine Clr Calc Pharmacy 11.3; Estimated Glomerular Filt Rate 12; Glucose Random 264 mg/dL (60-115); Magnesium 2.9 mg/dL (1.6-2.6); Potassium 5.5 mmol/L (3.3-5.1); Sodium 140 mmol/L (135-145); Total Protein 7.3 g/dL (6.5-8.0)
[2024-08-03 12:14] LABS: B Type Natriuretic Peptide 516 pg/mL (<100)
[2024-08-03 12:16] LABS: Troponin-I High Sensitivity 8.6 ng/L (<3.5-17.0)
[2024-08-03 12:20] LABS: SLIDE REVIEW VERIFIED
[2024-08-03 12:43] LABS: Influenza A PCR NEGATIVE (Negative); Influenza B PCR NEGATIVE (Negative); Resp Syncy Virus RNA Qual PCR NEGATIVE (Negative); SARS COV2 PCR INHOUSE NEGATIVE (Negative)
[2024-08-03 16:05] LABS: Glucose, Whole Blood 102 mg/dL (60-115)
[2024-08-03 19:25] VITALS: BP 171/62; PULSE 63; RESP 16; TEMP 36.4; O2SAT 97
--- NOTE | 2024-08-03 19:41 | P.HPHOSP_ITS ---
History of Present Illness Date of Service: 08/03/24 Chief Complaint: Dyspnea This is a 78-year-old female with pertinent history of advanced CKD approaching ESRD, hypertension, mixed hyperlipidemia, mood disorder, insulin-dependent diabetes mellitus, gastroesophageal reflux disease, chronic pancreatic insufficiency, paroxysmal atrial fibrillation on Eliquis, pulmonary hypertension, congestive heart failure with preserved ejection fraction who was sent to the emergency department from supervisor brine's office for IV diuresis. History obtained with the help of heating and cooling technician. Patient does have mild cognitive impairment and history obtained with the help of granddaughter at bedside. Patient has been following up with outpatient Nephrology and continues to have dyspnea which is worse with exertion. Also admits orthopnea. Her outpatient p.o. Lasix dosage increased but her symptoms continue. Also noted to have worsening of her creatinine and BUN. Patient was sent to the ER for IV diuresis and possible need for dialysis. No fever, chills, chest pain, palpitations, abdominal pain, changes in bowel habits. In the emergency department, BNP found to be elevated and patient was initiated on IV diuresis. Review of Systems 2 Constitutional: Constitutional: Reports fatigue, Reports malaise and Reports weakness Cardiovascular: Cardiovascular: Reports dyspnea on exertion and Reports orthopnea Respiratory: Respiratory: Reports dyspnea on exertion Gastrointestinal: Gastrointestinal: Reports no additional gastrointestinal complaints Genitourinary: Genitourinary: Reports no additional female genitourinary complaints Neurologic: Reports weakness Endocrine: Endocrine: Reports fatigue [facility] Medical History Chest discomfort Exocrine pancreatic insufficiency Shortness of breath ANKIT (obstructive sleep apnea) Asthma Pulmonary hypertension Vasovagal syncope Type 2 diabetes mellitus with unspecified complications Essential hypertension PAF (paroxysmal atrial fibrillation) Cardiomyopathy Family History Father No problems noted. Mother No problems noted. Surgical History No pertinent past surgical history Social History Alcohol intake: never Patient Tobacco Use Status: Never used Tobacco Advance Directives: No Advance Directives Information Provided: Yes Do you have a plan to hurt others: No Plan Meds Allergies Allergy/AdvReac Type Severity Reaction Status Date / Time faviola [FAVIOLA] AdvReac Intermediate NAUSEA & Verified 08/03/24 10:55 VOMITING Penicillins [PENICILLINS] AdvReac Unknown NAUSEA & Verified 08/03/24 10:55 VOMITING YUCA Allergy Unknown NAUSEA & Uncoded 06/08/24 15:22 VOMITING SARDINES AdvReac Intermediate NAUSEA & Uncoded 06/08/24 15:22 VOMITING Home Medications ?Medication ?Instructions ?Recorded ?Confirmed ?Last Taken ?Type alendronate 70 mg tablet 70 mg PO QWEEK 11/27/20 08/02/24 Unknown History atorvastatin 40 mg tablet 40 mg PO BEDTIME 11/27/20 08/02/24 Unknown History docusate sodium 100 mg capsule 100 mg PO BID PRN constipation 11/27/20 08/02/24 Unknown History duloxetine 60 mg capsule,delayed 60 mg PO DAILY 11/27/20 08/02/24 Unknown History release gabapentin 100 mg capsule 100 mg PO DAILY 11/27/20 08/02/24 Unknown History lidocaine-prilocaine 2.5 %-2.5 % 2.5 g topical DAILY 11/27/20 08/02/24 Unknown History topical cream simethicone 180 mg capsule 180 mg PO TID PRN Constipation 11/27/20 08/02/24 Unknown History albuterol sulfate 90 mcg/actuation 2 puff inhalation Q4H PRN 05/14/22 08/02/24 Unknown History aerosol inhaler (Ventolin HFA) fluticasone propionate 220 2 puff inhalation BID 05/14/22 08/02/24 Unknown History mcg/actuation HFA aerosol inhaler (Flovent HFA) nebulizers 04/02/23 08/02/24 Unknown History ammonium lactate 12 % topical cream 1 appl topical DAILY 12/02/23 08/02/24 Unknown History meclizine 25 mg tablet 25 mg PO DAILY PRN 12/02/23 08/02/24 Unknown History peg [id number]-[id number]-fdkiswak 1 drp ophthalmic (eye) 12/02/23 08/02/24 Unknown History %-0.2 %-0.2 % eye drops (Artificial Tears ([id number])) cholecalciferol (vitamin D3) 50 50 mcg PO DAILY 12/04/23 08/02/24 Unknown History mcg (2,000 unit) capsule omega-3 300 mg-dha 120 mg-epa 180 cap PO 12/04/23 08/02/24 Unknown History mg-fish oil 1,000 mg capsule famotidine 20 mg tablet 20 mg PO DAILY 01/01/24 08/02/24 Unknown History sennosides 8.6 mg tablet (senna) 17.2 mg PO DAILY 01/01/24 08/02/24 Unknown History cyanocobalamin (vitamin B-12) 1,000 mcg PO DAILY 02/09/24 08/02/24 Unknown History 1,000 mcg tablet ketorolac 0.5 % eye drops drp ophthalmic (eye) 02/09/24 08/02/24 Unknown History sitagliptin phosphate 25 mg tablet 25 mg PO DAILY 02/09/24 08/02/24 Unknown History (Januvia) witch james 50 % topical pads pad topical 02/09/24 08/02/24 Unknown History (Medi-Pads) ferrous sulfate 325 mg (65 mg 325 mg PO DAILY 03/29/24 08/02/24 Unknown History iron) tablet glipizide 10 mg tablet 10 mg PO DAILY 03/29/24 08/02/24 Unknown History acetaminophen 325 mg tablet mg PO 04/13/24 08/02/24 Unknown History blood sugar diagnostic (FreeStyle #10 ea 04/13/24 08/02/24 Unknown History Lite Strips) calcium polycarbophil 625 mg mg PO 04/13/24 08/02/24 Unknown History tablet (Fiber (calcium polycarbophil)) sucralfate 1 gram tablet PO DAILY 04/13/24 08/02/24 Unknown History insulin aspart U-100 100 unit/mL subcut 06/14/24 08/02/24 Unknown History (3 mL) subcutaneous pen (Novolog FlexPen U-100 Insulin aspart) Physical Exam 2 Vital Signs and Narrative: Vital Signs: Last Vital Signs Temp 97.6 F 08/03/24 19:25 Pulse 63 08/03/24 19:25 Resp 16 08/03/24 19:25 BP 171/62 H 08/03/24 19:25 Pulse Ox 97 08/03/24 19:25 O2 Del Method Room Air 08/03/24 19:25 BMI result Body Mass Index 32.2 Elderly female lying in bed in mild distress Neck supple, no JVD Regular rate and rhythm, S1-S2 heard Bilateral crackles appreciated Abdomen soft nontender, no guarding, no rigidity Patient is awake, alert and oriented to self, place, disoriented to time and person ; no focal motor deficit Psych: Normal mood No pedal edema Results Labs 08/03/24 11:43 08/03/24 11:43 Labs: Laboratory Results - last 24 hr 08/03/24 08/03/24 11:43 15:58 MCV 96.8 MCH 29.4 MCHC 30.3 L RDW 14.9 Plt Count 206 MPV 10.8 Immature Gran % (Auto) 0.2 Neut % (Auto) 51.2 Lymph % (Auto) 14.8 L [place] % (Auto) 5.9 Eos % (Auto) 27.1 H Baso % (Auto) 0.8 Lymph # (Auto) 0.8 L [place] # (Auto) 0.3 Eos # (Auto) 1.4 H Baso # (Auto) 0.0 Abs Immat Gran (auto) 0.01 Absolute Neuts (auto) 2.6 Absolute Nucleated RBC 0.000 Nucleated RBC % (auto) 0.0 Smear Tech's Comments VERIFIED PT 12.9 H INR 1.1 APTT 35.1 Anion Gap 16 Estim Creat Clear Calc 11.3 Estimated GFR 12 POC Glucose 102 Random Glucose 264 H Calcium 9.6 Magnesium 2.9 H Total Bilirubin 0.3 AST 15 ALT 10 Alkaline Phosphatase 43 Troponin I High Sens 8.6 B-Natriuretic Peptide 516 H Total Protein 7.3 Albumin 4.0 Influenza Type A (PCR) NEGATIVE Influenza Type B (PCR) NEGATIVE RSV RNA Qual (PCR) NEGATIVE SARS-CoV-2 RNA (RT-PCR) NEGATIVE Imaging Radiologist's Impressions: Impressions Chest X-Ray 08/03/24 11:13 IMPRESSION: Right upper lobe atelectasis. Electronically signed by: Angela Rizzo MD 08/03/2024 11:58 AM [facility] Assessment and Plan (1) Congestive heart failure: Status: Acute (2) Acute kidney injury: Status: Acute Plan This is a 78-year-old female with pertinent history of advanced CKD approaching ESRD, hypertension, mixed hyperlipidemia, mood disorder, insulin-dependent diabetes mellitus, gastroesophageal reflux disease, chronic pancreatic insufficiency, paroxysmal atrial fibrillation on Eliquis, pulmonary hypertension, congestive heart failure with preserved ejection fraction who was sent to the emergency department from supervisor brine's office for IV diuresis. #. Acute on chronic congestive heart failure with preserved ejection fraction: Will admit patient with IV diuresis. Strict I's and O's. Low-salt diet. #. Acute kidney injury on advanced CKD: In the setting of above. Monitor creatinine urine output with IV diuresis. May need possible dialysis, hold Eliquis and transition to therapeutic Lovenox in case patient needs dialysis catheter. Consulted Nephrology, appreciate assistance #. Anemia of chronic kidney disease #. Hypertension: Continue home antihypertensives #. Mixed hyperlipidemia: On statin #. Mood disorder: Continue home mood stabilizers #. Insulin-dependent diabetes mellitus with hyperglycemia: Initiating Accu- Cheks with sliding scale insulin #. Gastroesophageal reflux disease: On PPI #. Chronic pancreatic insufficiency: On enzyme supplementation Med rec pending DVT prophylaxis: Lovenox Full code Admit as inpatient and will require two night minimum hospital stay for IV diuresis, monitoring of kidney function (as above), which is not possible in a lesser acute setting. Specialist consult pending Quality Stroke Does the patient have a stroke diagnosis?: No VTE Prior VTE?: No VTE Risk Level:: Medical - moderate - high VTE Device Contraindication: N/A - Device Ordered VTE Drug Contraindication: Treatment Not Indicated
[2024-08-03] MEDS: Furosemide 40 MG/4 ML VIAL IVPUSH ×2 (19:52→21:30)
[2024-08-03 19:58] LABS: Appearance Urine Clear; Color Urine Yellow; Glucose Urine UA Negative (Negative); Leukocyte Esterase Urine Negative (Negative); Nitrite Urine Negative (Negative); Urine Blood Negative (Negative); Urine Ketones Negative (Negative); Urine Protein Negative (Neg-Trace)
[2024-08-03 21:25] LABS: Glucose, Whole Blood 205 mg/dL (60-115)
[2024-08-03] MEDS: Insulin Lispro 100 UNIT/ML 3 ML VIAL SUBCUT (21:27)
--- NOTE | 2024-08-03 21:29 | PHA.MEDREC ---
Addendum entered by Sanket Garza RPh 08/03/24 22:07: Med rec reviewed Original Note: Pharmacy Consult ? Medication Reconciliation Pharmacy has completed the medication reconciliation. Confirmed medications with patient granddaughter and list brought from home. Patient granddaughter confirmed her Novolog and states it is per a sliding scale but her grandmother doesn't take it that much unless her sugar levels are off. The granddaughter stated they gave it to the patient this morning at 10:21. They confirmed the patient Dr just stopped the Duloxetine 60mg tabs yesterday after her appointment. They confirmed she gets an Alendronate 70mg tablet once a week and she confirmed her grandmother takes it on Mondays and she took it last Thursday 08/02. they confirmed the grandmother takes her Creon 2 tabs BID since its easier to take it like that instead of QID. The granddaughter confirmed her grandmother took her morning medications this morning.
[2024-08-03] MEDS: Enoxaparin Sodium 80 MG/0.8 ML SYRINGE SUBCUT (21:31)
[2024-08-03 22:55] VITALS: BP 136/60; PULSE 58; RESP 14; O2SAT 98
--- NOTE | 2024-08-04 04:50 | PC.NURSE ---
pt had no output via purewick and stated has no urge to urinate. no incontinence noted. bladder scan obtained at >776 mL. pt helped to bedside commode. able to urinate 900mL clear yellow urine. pt felt slightly sob with exertion, educated to use bed farrell next time and pt in agreement. pt helped back to stretcher 98% on RA. daughter at bedside. call clark within reach.
[2024-08-04 04:54] VITALS: BP 135/57; PULSE 61; RESP 18; TEMP 36.4; O2SAT 98
[2024-08-04 06:28] LABS: Basophils Percent Auto 0.9 % (0-2); Eosinophils Absolute Auto 1.3 X10*3/uL (0.0-0.4); Eosinophils Percent Auto 29.8 % (0-4); Hemoglobin 9.1 g/dl (12.0-16.0); Imm Gran Abs Auto 0.01 X10*3/uL (0.00-0.03); Imm Gran Pct Auto 0.2 % (0.0-0.4); Lymphocytes Absolute Auto 0.7 X10*3/uL (1.2-4.9); MANUAL DIFF FLAG SCAN; Mean Corpuscular HGB Conc 30.3 g/dl (31.0-35.0); Mean Corpuscular Hemoglobin 29.2 pg (27.0-33.0); Mean Corpuscular Volume 96.2 fL (80.0-98.0); Mean Platelet Volume 10.6 fL (9.4-12.3); Monocytes Absolute Auto 0.4 X10*3/uL (0.1-1.2); Monocytes Percent Auto 8.8 % (2-11); Neutrophils Percent Auto 45.3 % (45-73); Platelet Count 206 X10*3/uL (160-400); Red Blood Count 3.12 X10*6/uL (4.20-5.50); Red Cell Distribution Width 14.8 % (11.0-16.0); SCAN SMEAR FLAG 1; White Blood Count 4.3 X10*3/uL (4.8-10.8)
[2024-08-04 06:38] LABS: Anion Gap 17 (12-20); Blood Urea Nitrogen 112 mg/dL (9-16); Calcium 9.5 mg/dL (8.4-10.2); Carbon Dioxide 21 mmol/L (22-29); Chloride 107 mmol/L (96-108); Creatinine Clr Calc Pharmacy 10.5; Estimated Glomerular Filt Rate 11; Glucose Random 99 mg/dL (60-115); Potassium 5.3 mmol/L (3.3-5.1); Sodium 140 mmol/L (135-145)
[2024-08-04 07:21] LABS: Glucose, Whole Blood 101 mg/dL (60-115)
[2024-08-04] MEDS: 0.9 % Sodium Chloride Flush 3 ML SYRINGE IVFLUSH ×2 (08:18→17:51)
[2024-08-04 08:20] VITALS: BP 141/54
[2024-08-04] MEDS: Furosemide 100 MG/10 ML VIAL 80 MG IVPUSH (08:20)
[2024-08-04 08:45] LABS: SLIDE REVIEW VERIFIED
--- NOTE | 2024-08-04 10:13 | PM.CNNEP ---
History of Present Illness Reason for Consult Consult date: 08/04/24 Chief Complaint Chief complaint: Dyspnea History of Present Illness Narrative: 78 y/o female with HTN, DMII, pancreatic insufficiency, ANKIT, afib, CHF, CKD, pulmonary hypertension, asthma. Followed by Dr Mccartney, Nephrology, as outpatient, whom recommended admission due to advanced renal failure approaching end-stage renal disease, renal function worsened despite high dose lasix, and remained fluid-overloaded as outpatient- had discussed HD inpatient with patient, daughter and granddaughter as outpatient. Eliquis has been held (last dose Friday morning, 08/02 per granddaughter). Plan for IV diuretics to see if improvement in respiratory status Plan for permacath placement Patient reports she is short of breath intermittently has some mild lower extremity swelling, ongoing denies abdominal pain, chest pain denies flank pain denies dysuria, reports she is voiding comfortably/easily denies other concerns Review of Systems Constitutional: Reports fatigue, Denies headache(s) and Reports weakness Denies dizziness and Denies headache(s) Cardiovascular: Denies chest pain, Reports leg edema, Denies lightheadedness and Reports dyspnea Respiratory: Denies cough and Reports dyspnea Gastrointestinal: Denies abdominal pain, Denies constipation, Denies diarrhea, Denies nausea and Denies vomiting Genitourinary: Denies hematuria, Denies difficulty voiding, Denies dysuria, Denies flank pain and Denies urinary incontinence Musculoskeletal: Denies arthralgias and Reports muscle cramps (reports lower extremity muscle cramping ongoing) Skin/Breast: Denies rash Denies dizziness, Denies headache(s) and Reports weakness Endocrine: Reports fatigue PMFSH Past Medical History Medical History (Updated 08/04/24 @ 10:30 by Leanne Rubio, SHAI, POSTBED STITCHER-BC) Shortness of breath Chest discomfort Exocrine pancreatic insufficiency ANKIT (obstructive sleep apnea) Asthma Pulmonary hypertension Vasovagal syncope Type 2 diabetes mellitus with unspecified complications Essential hypertension PAF (paroxysmal atrial fibrillation) Cardiomyopathy Family History Family History Father No problems noted. Mother No problems noted. Surgical History Surgical History No pertinent past surgical history Social History Social History Alcohol intake: never Patient Tobacco Use Status: Never used Tobacco Smoked in Last 30 Days: No Use of substances other than those prescribed or required for medical reasons: No Advance Directives: No Advance Directives Information Provided: Yes Do you have a plan to hurt others: No Plan Nutrition Risks: No Nutritional Risk Meds Allergies Allergy/AdvReac Type Severity Reaction Status Date / Time faviola [FAVIOLA] AdvReac Intermediate NAUSEA & Verified 08/03/24 10:55 VOMITING Penicillins [PENICILLINS] AdvReac Unknown NAUSEA & Verified 08/03/24 10:55 VOMITING YUCA Allergy Unknown NAUSEA & Uncoded 06/08/24 15:22 VOMITING SARDINES AdvReac Intermediate NAUSEA & Uncoded 06/08/24 15:22 VOMITING Active Medications: Current Medications Acetaminophen (Acetaminophen 325 Mg Tablet) 650 mg PO Q6H PRN PRN Reason: Pain, Mild (Pain Scale 1-3), fever or headache Acetaminophen (Acetaminophen 325 Mg Tablet) 650 mg PO DAILY PRN PRN Reason: Pain (Scale Score 1-3) Albuterol Sulfate (Albuterol Sulfate 90 Mcg 8 Gm Inhaler) 2 puff INHALE Q4H PRN PRN Reason: Wheezing/SOB Albuterol Sulfate (Albuterol Sulfate (0.083%) 2.5 Mg/3 Ml Vial.Neb) 2.5 mg INHALE Q4H PRN PRN Reason: for wheezing Lipase/Protease/Amylase (Lipase/Prot/Amylase 24/76/120k [address]Dr) 3 cap PO DAILY PATRICIA Artificial Tears (Artificial Tears 15 Ml Drops) 1 drop EYE-BOTH DAILY PRN PRN Reason: Dry Eye(S) Atorvastatin Calcium (Atorvastatin Calcium 40 Mg Tablet) 40 mg PO BEDTIME PATRICIA Calcium Carbonate (Calcium Carbonate 750 Mg Tab.Chew) 750 mg PO Q4H PRN PRN Reason: Heartburn Calcium Polycarbophil (Calcium Polycarbophil Tablet) 2 tab PO DAILY PATRICIA Cyanocobalamin (Cyanocobalamin (Vitamin B-12) 1,000 Mcg Tablet) 1,000 mcg PO DAILY PATRICIA Docusate Sodium (Docusate Sodium 100 Mg Capsule) 100 mg PO BID PRN PRN Reason: constipation Enoxaparin Sodium (Enoxaparin Sodium 80 Mg/0.8 Ml Syringe) 80 mg 1 mg/kg (80 mg) SUBCUT Q24H [facility] Last Admin: 08/03/24 21:31 Dose: 80 mg Famotidine (Famotidine 20 Mg Tablet) 20 mg PO DAILY [facility] Fluticasone/Umeclidinium/Vilanterol (Fluticasone/Umeclidinium/Vilanterol 100/62.5/25 Blst.W.Dev) 1 puff INHALE RDAILY [facility] Furosemide (Furosemide 100 Mg/10 Ml Vial) 120 mg IVPUSH BID@0900,1800 [facility]; Protocol Gabapentin (Gabapentin 100 Mg Capsule) 200 mg PO BEDTIME [facility] Glucose (Glucose Gel 15 Gm Gel..Gram.) 15 gm PO Q15M PRN; Protocol PRN Reason: per Hypoglycemia Standing Ord. Dextrose (D10) 250 mls @ 750 mls/hr IV Q15M PRN; Protocol PRN Reason: per Hypoglycemia Standing Ord. Insulin Human Lispro (Insulin Lispro 100 Unit/Ml 3 Ml Vial) 0 unit SUBCUT QIDACHS [facility]; Protocol Last Admin: 08/04/24 07:32 Dose: Not Given Magnesium Hydroxide (Milk Of Magnesia 30 Ml Oral.Susp) 30 ml PO DAILY PRN PRN Reason: Constipation Meclizine HCl (Meclizine Hcl 25 Mg Tablet) 25 mg PO DAILY PRN PRN Reason: Dizziness Melatonin (Melatonin 3 Mg Tablet) 6 mg PO BEDTIME PRN PRN Reason: Insomnia Metoprolol Tartrate (Metoprolol Tartrate 50 Mg Tablet) 50 mg PO BID [facility]; Protocol Ondansetron HCl (Ondansetron Hcl 4 Mg/2 Ml Vial) 4 mg IVPUSH Q8H PRN PRN Reason: Nausea and Vomiting Polyethylene Glycol (Polyethylene Glycol 3350 17 Gm Powd.Pack) 17 gm PO BID PRN PRN Reason: constipation Senna (Sennosides 8.6 Mg Tablet) 8.6 - 17.2 mg PO DAILY [facility] Sodium Chloride (0.9 % Sodium Chloride Flush 3 Ml Syringe) 3 ml IVFLUSH QSHIFT [facility] Last Admin: 08/04/24 08:18 Dose: 3 ml Sucralfate (Sucralfate 1 Gm Tablet) 1 gm PO DAILY [facility] Vitamin D (Cholecalciferol (Vitamin D3) 25 Mcg Tablet) 50 mcg PO DAILY [facility] Home Medications ?Medication ?Instructions ?Recorded ?Confirmed ?Last Taken ?Type alendronate 70 mg tablet 70 mg PO MO 11/27/20 08/03/24 08/02/24 History atorvastatin 40 mg tablet 40 mg PO BEDTIME 11/27/20 08/03/24 08/02/24 History docusate sodium 100 mg capsule 100 mg PO BID PRN constipation 11/27/20 08/03/24 Unknown History gabapentin 100 mg capsule 200 mg PO BEDTIME 11/27/20 08/03/24 08/03/24 10:21 History simethicone 180 mg capsule 180 mg PO TID PRN Constipation 11/27/20 08/03/24 Unknown History albuterol sulfate 90 mcg/actuation 2 puff inhalation Q4H PRN 05/14/22 08/03/24 Unknown History aerosol inhaler (Ventolin HFA) Wheezing/SOB nebulizers 04/02/23 08/02/24 Unknown History ammonium lactate 12 % topical cream 1 appl topical DAILY 12/02/23 08/03/24 08/03/24 10:21 History meclizine 25 mg tablet 25 mg PO DAILY PRN Dizziness 12/02/23 08/03/24 Unknown History peg [id number] 1 1 drp ophthalmic (eye) DAILY PRN 12/02/23 08/03/24 Unknown History %-0.2 %-0.2 % eye drops Dry Eye(S) (Artificial Tears ([id number])) cholecalciferol (vitamin D3) 50 50 mcg PO DAILY 12/04/23 08/03/24 08/03/24 10:21 History mcg (2,000 unit) capsule omega-3 300 mg-dha 120 mg-epa 180 1 cap PO DAILY 12/04/23 08/03/24 08/03/24 10:21 History mg-fish oil 1,000 mg capsule famotidine 20 mg tablet 20 mg PO DAILY 01/01/24 08/03/24 08/03/24 10:21 History sennosides 8.6 mg tablet (senna) 8.6 - 17.2 mg PO DAILY 01/01/24 08/03/24 08/03/24 10:21 History cyanocobalamin (vitamin B-12) 1,000 mcg PO DAILY 02/09/24 08/03/24 08/03/24 10:21 History 1,000 mcg tablet ketorolac 0.5 % eye drops 1 drp ophthalmic (eye) DAILY PRN 02/09/24 08/03/24 Unknown History Dry Eye(S) ferrous sulfate 325 mg (65 mg 325 mg PO DAILY 03/29/24 08/03/24 08/03/24 10:21 History iron) tablet acetaminophen 325 mg tablet 650 mg PO DAILY PRN Pain (Scale 04/13/24 08/03/24 Unknown History Score 1-3) blood sugar diagnostic (FreeStyle #10 ea 04/13/24 08/02/24 Unknown History Lite Strips) calcium polycarbophil 625 mg 625 mg PO DAILY 04/13/24 08/03/24 08/03/24 10:21 History tablet (Fiber (calcium polycarbophil)) sucralfate 1 gram tablet 1 g PO DAILY 04/13/24 08/03/24 08/03/24 10:21 History insulin aspart U-100 100 unit/mL See Protocol subcut .TIDPC 06/14/24 08/03/24 08/03/24 10:21 History (3 mL) subcutaneous pen (Novolog FlexPen U-100 Insulin aspart) hydrocortisone 1 % topical ointment 1 appl topical DAILY PRN itch 08/03/24 08/03/24 Unknown History [id number]-[id number]-[id number] 2 cap PO DAILY 08/03/24 08/03/24 08/03/24 10:21 History 36,000-114,000-180,000 unit capsule,delay rel (Creon) metolazone 2.5 mg tablet 2.5 mg PO DAILY PRN Dizziness 08/03/24 08/03/24 Unknown History multivitamin-ferrous 1 tab PO DAILY 08/03/24 08/03/24 Unknown History fumarate-folic acid 18 mg-400 mcg tablet (Centrum Women) sitagliptin phosphate 50 mg tablet 50 mg DAILY 08/03/24 08/03/24 08/03/24 History (Januvia) sodium polystyrene sulfonate 15 g PO BEDTIME PRN Hyperkalemia 08/03/24 08/03/24 Unknown History vit C 250 mg-E 90 mg-zinc 40 1 tab PO BID 08/03/24 08/03/24 08/03/24 10:21 History mg-copper 1 [id number] chew tablet (PreserVision AREDS-2) Physical Exam Vital Signs: Last Vital Signs Temp 97.6 F 08/04/24 04:54 Pulse 61 08/04/24 04:54 Resp 18 08/04/24 04:54 BP 141/54 H 08/04/24 08:20 Pulse Ox 98 08/04/24 04:54 O2 Del Method Room Air 08/04/24 04:54 BMI result Body Mass Index 32.2 Const Other: pt poor historian; discusses with her daughter at bedside who also provides history (wheelchair van operator first responder utilized as both are primarily Khmer-speaking). General: no acute distress, alert and awake Orientation/consciousness: oriented to person, oriented to place and No oriented to time Resp Effort & Inspection: normal respiratory effort, able to speak in complete sentences and no cough Auscultation: crackles Cardio Jugular venous distension: no JVD Rate: regular rate Rhythm: regular rhythm Heart sounds: S1 normal heart sound present and S2 normal heart sound present GI Palpation (GI): Soft to palpation and nontender General: Yes no CVA tenderness Back/Spine/Pelvis Back: no CVA tenderness Skin Rashes: no rashes Neuro General: oriented to person, oriented to place, No oriented to time and other (oriented vaguely to situation- states she is in hospital for her kidneys) Extrem General: Yes edema (trace/+1 BLE pitting edema) Results Lab Results 08/04/24 06:03 08/04/24 06:03 Lab results: Chemistry 08/03/24 08/04/24 11:43 06:03 Sodium 140 140 Potassium 5.5 H 5.3 H Carbon Dioxide 22 21 L BUN 115 H 112 H Creatinine 3.78 H 4.05 H* Calcium 9.6 9.5 Hematology 08/03/24 08/04/24 11:43 06:03 WBC 5.1 4.3 L Hgb 9.1 L 9.1 L Plt Count 206 206 Urinalysis 08/03/24 19:45 Urine Color Yellow Urine Appearance Clear Urine pH 5.0 Ur Specific [place] 1.010 Urine Protein Negative Urine Glucose (UA) Negative Urine Ketones Negative Urine Blood Negative Urine Nitrite Negative Ur Leukocyte Esterase Negative Assessment and Plan (1) Renal failure: Qualifiers: Acute renal failure type: unspecified Chronic kidney disease stage: stage 5, not on chronic dialysis Renal failure chronicity: acute on chronic Qualified Code(s): N17.9 - Acute kidney failure, unspecified; N18.5 - Chronic kidney disease, stage 5 Status: Acute (2) Volume overload: Qualifiers: Hypervolemia type: other Qualified Code(s): E87.79 - Other fluid overload Status: Acute (3) Essential hypertension: Status: Acute (4) Shortness of breath: Status: Acute Plan Advanced renal failure approaching end-stage renal disease worsening labs reviewed- renal function worsened despite high dose lasix outpatient remains hypervolemic recommend IVP furosemide 120mg BID - Plan for IV diuresis to see if improvement in respiratory status; will place permacath 08/05 for anticipation of HD Eliquis has been held (last dose Friday morning, 08/02 per granddaughter). ordered DDAVP 08/05 morning to prevent bleeding given blood urea over 100 to prevent uremic bleeding from perm cath insertion site Continue to monitor blood pressures continue to avoid nephrotoxic substances will continue to follow Discussed with Dr Julien Robins Date of Service Date of Service: 08/04/24
[2024-08-04] MEDS: calcium polycarbophiL TABLET 2 TAB PO (11:55)
[2024-08-04] MEDS: Lipase/Prot/Amylase 24/76/120K 1 CAP CAPSULE.DR 3 CAP PO (11:55)
[2024-08-04] MEDS: polyethylene glycoL 3350 17 GM POWD.PACK PO (11:59)
[2024-08-04] MEDS: Docusate Sodium 100 MG CAPSULE PO (11:59)
[2024-08-04] MEDS: Acetaminophen 325 MG TABLET 650 MG PO (12:02)
[2024-08-04 12:21] LABS: Glucose, Whole Blood 149 mg/dL (60-115)
--- NOTE | 2024-08-04 14:54 | MHC.CM.PN ---
PT LIVES WITH [facility] HAS A HOTEL ASSISTANT MANAGER FAMILY TO TRANSPORT HOME
--- NOTE | 2024-08-04 17:12 | P.PNIM_ITS ---
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 Review of Systems As per granddaughter all other system reviewed and are negative. Physical Exam 2 Vital Signs: Vital Signs: Last Vital Signs Temp 97.6 F 08/04/24 04:54 Pulse 61 08/04/24 04:54 Resp 18 08/04/24 04:54 BP 141/54 H 08/04/24 08:20 Pulse Ox 98 08/04/24 04:54 O2 Del Method Room Air 08/04/24 04:54 BMI result Body Mass Index 32.2 Const: Other: General awake alert in no acute distress Neck supple, no JVD Regular rate and rhythm, S1-S2 heard Lungs diminished with Bilateral crackles Abdomen soft, non tender, no guarding, no rigidity Neuro awake, alert and oriented to self, place, disoriented to time and person, no focal motor deficit Extremities no edema Psych: Normal mood Skin no rash Objective Data Active Medications Acetaminophen (Acetaminophen 325 Mg Tablet) 650 mg PO Q6H PRN PRN Reason: Pain, Mild (Pain Scale 1-3), fever or headache Acetaminophen (Acetaminophen 325 Mg Tablet) 650 mg PO DAILY PRN PRN Reason: Pain (Scale Score 1-3) Last Admin: 08/04/24 12:02 Dose: 650 mg Documented By: SEVERIANO Albuterol Sulfate (Albuterol Sulfate 90 Mcg 8 Gm Inhaler) 2 puff INHALE Q4H PRN PRN Reason: Wheezing/SOB Albuterol Sulfate (Albuterol Sulfate (0.083%) 2.5 Mg/3 Ml Vial.Neb) 2.5 mg INHALE Q4H PRN PRN Reason: for wheezing Lipase/Protease/Amylase (Lipase/Prot/Amylase 24/76/120k 1 Cap Capsule.) 3 cap PO DAILY [facility] Last Admin: 08/04/24 11:55 Dose: 3 cap Documented By: SEVERIANO Artificial Tears (Artificial Tears 15 Ml Drops) 1 drop EYE-BOTH DAILY PRN PRN Reason: Dry Eye(S) Atorvastatin Calcium (Atorvastatin Calcium 40 Mg Tablet) 40 mg PO BEDTIME [facility] Calcium Carbonate (Calcium Carbonate 750 Mg Tab.Chew) 750 mg PO Q4H PRN PRN Reason: Heartburn Calcium Polycarbophil (Calcium Polycarbophil Tablet) 2 tab PO DAILY [facility] Last Admin: 08/04/24 11:55 Dose: 2 tab Documented By: SEVERIANO Cyanocobalamin (Cyanocobalamin (Vitamin B-12) 1,000 Mcg Tablet) 1,000 mcg PO DAILY [facility] Docusate Sodium (Docusate Sodium 100 Mg Capsule) 100 mg PO BID PRN PRN Reason: constipation Last Admin: 08/04/24 11:59 Dose: 100 mg Documented By: SEVERIANO Enoxaparin Sodium (Enoxaparin Sodium 80 Mg/0.8 Ml Syringe) 80 mg 1 mg/kg (80 mg) SUBCUT Q24H [facility] Last Admin: 08/03/24 21:31 Dose: 80 mg Documented By: EDDIETOMILLIE Famotidine (Famotidine 20 Mg Tablet) 20 mg PO DAILY [facility] Fluticasone/Umeclidinium/Vilanterol (Fluticasone/Umeclidinium/Vilanterol 100/62.5/25 Blst.W.Dev) 1 puff INHALE RDAILY [facility] Furosemide (Furosemide 100 Mg/10 Ml Vial) 120 mg IVPUSH BID@0900,1800 [facility]; Protocol Gabapentin (Gabapentin 100 Mg Capsule) 200 mg PO BEDTIME [facility] Glucose (Glucose Gel 15 Gm Gel..Gram.) 15 gm PO Q15M PRN; Protocol PRN Reason: per Hypoglycemia Standing Ord. Dextrose (D10) 250 mls @ 750 mls/hr IV Q15M PRN; Protocol PRN Reason: per Hypoglycemia Standing Ord. Desmopressin Acetate 20 mcg/ (Sodium Chloride) 55 mls @ 100 mls/hr IV ONCE ONE Stop: 08/05/24 07:32 Insulin Human Lispro (Insulin Lispro 100 Unit/Ml 3 Ml Vial) 0 unit SUBCUT QIDACHS [facility]; Protocol Last Admin: 08/04/24 13:13 Dose: Not Given Documented By: SEVERIANO Non-Admin Reason: [id number] Magnesium Hydroxide (Milk Of Magnesia 30 Ml Oral.Susp) 30 ml PO DAILY PRN PRN Reason: Constipation Meclizine HCl (Meclizine Hcl 25 Mg Tablet) 25 mg PO DAILY PRN PRN Reason: Dizziness Melatonin (Melatonin 3 Mg Tablet) 6 mg PO BEDTIME PRN PRN Reason: Insomnia Metoprolol Tartrate (Metoprolol Tartrate 50 Mg Tablet) 50 mg PO BID [facility]; Protocol Ondansetron HCl (Ondansetron Hcl 4 Mg/2 Ml Vial) 4 mg IVPUSH Q8H PRN PRN Reason: Nausea and Vomiting Polyethylene Glycol (Polyethylene Glycol 3350 17 Gm Powd.Pack) 17 gm PO BID PRN PRN Reason: constipation Last Admin: 08/04/24 11:59 Dose: 17 gm Documented By: SEVERIANO Senna (Sennosides 8.6 Mg Tablet) 8.6 - 17.2 mg PO DAILY [facility] Sodium Chloride (0.9 % Sodium Chloride Flush 3 Ml Syringe) 3 ml IVFLUSH QSHIFT [facility] Last Admin: 08/04/24 08:18 Dose: 3 ml Documented By: SEVERIANO Sucralfate (Sucralfate 1 Gm Tablet) 1 gm PO DAILY [facility] Vitamin D (Cholecalciferol (Vitamin D3) 25 Mcg Tablet) 50 mcg PO DAILY [facility] Labs 08/04/24 06:03 08/04/24 06:03 Labs: Laboratory Results - last 24 hr 08/03/24 08/03/24 08/03/24 15:58 19:45 21:20 MCV MCH MCHC RDW Plt Count MPV Immature Gran % (Auto) Neut % (Auto) Lymph % (Auto) Blaine % (Auto) Eos % (Auto) Baso % (Auto) Lymph # (Auto) Blaine # (Auto) Eos # (Auto) Baso # (Auto) Abs Immat Gran (auto) Absolute Neuts (auto) Absolute Nucleated RBC Nucleated RBC % (auto) Smear Tech's Comments Anion Gap Estim Creat Clear Calc Estimated GFR POC Glucose 102 205 H Random Glucose Calcium Urine Color Yellow Urine Appearance Clear Urine pH 5.0 Ur Specific Valdez 1.010 Urine Protein Negative Urine Glucose (UA) Negative Urine Ketones Negative Urine Blood Negative Urine Nitrite Negative Ur Leukocyte Esterase Negative 08/04/24 08/04/24 08/04/24 06:03 07:18 12:18 MCV 96.2 MCH 29.2 MCHC 30.3 L RDW 14.8 Plt Count 206 MPV 10.6 Immature Gran % (Auto) 0.2 Neut % (Auto) 45.3 Lymph % (Auto) 15.0 L Blaine % (Auto) 8.8 Eos % (Auto) 29.8 H Baso % (Auto) 0.9 Lymph # (Auto) 0.7 L Blaine # (Auto) 0.4 Eos # (Auto) 1.3 H Baso # (Auto) 0.0 Abs Immat Gran (auto) 0.01 Absolute Neuts (auto) 2.0 Absolute Nucleated RBC 0.000 Nucleated RBC % (auto) 0.0 Smear Tech's Comments VERIFIED Anion Gap 17 Estim Creat Clear Calc 10.5 Estimated GFR 11 POC Glucose 101 149 H Random Glucose 99 Calcium 9.5 Urine Color Urine Appearance Urine pH Ur Specific Valdez Urine Protein Urine Glucose (UA) Urine Ketones Urine Blood Urine Nitrite Ur Leukocyte Esterase Assessment and Plan (1) Volume overload: Status: Acute (2) Renal failure: Status: Acute Plan 78-year-old female with pertinent history of advanced CKD approaching ESRD, hypertension, mixed hyperlipidemia, mood disorder, insulin-dependent diabetes mellitus, gastroesophageal reflux disease, chronic pancreatic insufficiency, paroxysmal atrial fibrillation on Eliquis, pulmonary hypertension, congestive heart failure with preserved ejection fraction sent 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 #. Acute on chronic congestive heart failure with preserved ejection fraction: Likely due to volume overload from worsening kidney disease Case discussed with Nephrology will increase Lasix to 120 mg b.i.d. follow Strict I's and O's, daily weight and Low-salt diet. #. Acute kidney injury on advanced CKD stage 5: Renal functioning worsening despite high-dose Lasix outpatient, patient appears hypervolemic case discussed with Nephrology they recommend Lasix 120 mg b.i.d. PermCath scheduled for 08/05 for anticipation of hemodialysis hold Eliquis for dialysis catheter. DDAVP scheduled for tomorrow morning to prevent uremic bleeding Follow BMP #. Chronic normocytic anemia due to chronic kidney disease stable H&H #. Hypertension: On amlodipine 10 mg, hydralazine 100 mg b.i.d., metoprolol 50 mg b.i.d. and Viagra 20 mg t.i.d. for pulmonary hypertension Will resume metoprolol 50 mg b.i.d. and hold all other home medications , follow BP and resume medications as needed #. Mixed hyperlipidemia: Continue Lipitor #. Neuropathy continue gabapentin # paroxysmal atrial fibrillation hold Eliquis, resume metoprolol 50 mg b.i.d. #. Insulin-dependent diabetes mellitus with hyperglycemia: Initiating Accu- Cheks with sliding scale insulin #. Gastroesophageal reflux disease: On PPI #. Chronic pancreatic insufficiency: On enzyme supplementation DVT prophylaxis: Hold Eliquis/Lovenox placed on compression boots. Full code Patient will require continued inpatient hospitalization for IV diuresis, monitoring of kidney function (as above), which is not possible in a lesser acute setting and for PermCath placement. Quality Stroke Does the patient have a stroke diagnosis?: No VTE Prior VTE?: No VTE Risk Level:: Medical - moderate - high VTE Device Contraindication: N/A - Device Ordered VTE Drug Contraindication: Treatment Not Indicated
[2024-08-04 17:57] LABS: Glucose, Whole Blood 166 mg/dL (60-115)
[2024-08-04] MEDS: Furosemide 100 MG/10 ML VIAL 120 MG IVPUSH (18:11)
[2024-08-04 18:12] VITALS: BP 170/82; PULSE 68; RESP 18; TEMP 36.7; O2SAT 97
[2024-08-04] MEDS: Insulin Lispro 100 UNIT/ML 3 ML VIAL SUBCUT (18:12)
[2024-08-04 20:14] VITALS: BP 141/75; PULSE 75; RESP 18; TEMP 36.6; O2SAT 97
[2024-08-04 20:24] LABS: Glucose, Whole Blood 146 mg/dL (60-115)
[2024-08-04 22:06] VITALS: BMI 32.2
[2024-08-04 22:41] VITALS: BP 169/73; PULSE 77
[2024-08-04 22:45] VITALS: BP 169/73; PULSE 77
[2024-08-04] MEDS: Atorvastatin Calcium 40 MG TABLET PO (22:45)
[2024-08-04] MEDS: Gabapentin 100 MG CAPSULE 200 MG PO (22:45)
[2024-08-04] MEDS: Simethicone 80 MG TAB.CHEW 160 MG PO (22:45)
[2024-08-04] MEDS: Metoprolol Tartrate 50 MG TABLET PO (22:45)
[2024-08-05] VITALS (14 sets, daily range): BP systolic 118–179; BP diastolic 48–74; PULSE 67–95; RESP 12–21; TEMP 36–36.5; O2SAT 93–100
[2024-08-05 07:37] LABS: Glucose, Whole Blood 143 mg/dL (60-115)
[2024-08-05] MEDS: Desmopressin Acetate 20 MCG in 0.9 % Sodium Chloride 50 ML 100 MCG IV (08:35)
--- NOTE | 2024-08-05 08:35 | PM.PNNEP ---
Subjective Subjective Date of Service: 08/05/24 Interval history: 78 y/o female with HTN, DMII, pancreatic insufficiency, ANKIT, afib, CHF, CKD, pulmonary hypertension, asthma. Followed by Dr Mccartney, Nephrology, as outpatient, whom recommended admission due to advanced renal failure approaching end-stage renal disease, renal function worsened despite high dose lasix, and remained fluid-overloaded as outpatient- had discussed HD inpatient with patient, daughter and granddaughter as outpatient. Eliquis has been held (last dose Friday morning, 08/02 per granddaughter). Plan for IV diuretics to see if improvement in respiratory status Plan for permacath placement Patient reports she has been short of breath all night and this a.m. has some mild lower extremity swelling, ongoing reports she has some nausea but thinks it is from the breakfast she ate reports muscle cramping mostly in lower extremities denies tremors/abnormal movements denies abdominal pain, chest pain denies flank pain denies dysuria, reports she is voiding comfortably/easily denies other concerns Physical Exam Vital Signs: Vital Signs: Last Vital Signs Temp 97.7 F 08/05/24 07:23 Pulse 71 08/05/24 09:55 Resp 14 08/05/24 09:55 BP 118/49 L 08/05/24 09:55 Pulse Ox 97 08/05/24 09:55 O2 Del Method Room Air 08/05/24 09:55 BMI result Body Mass Index 32.2 Const: Other: pt poor historian; discusses with her daughter at bedside who also provides history (educational sign language interpreter utilized as both are primarily [place] Citizen-speaking). General: no acute distress, alert and awake Orientation/consciousness: oriented to person, oriented to place and No oriented to time Resp: Effort & Inspection: normal respiratory effort, able to speak in complete sentences and no cough Auscultation: crackles Cardio: Jugular venous distension: no JVD Rate: regular rate Rhythm: regular rhythm Heart sounds: S1 normal heart sound present and S2 normal heart sound present GI: Palpation (GI): Soft to palpation and nontender : General: Yes no CVA tenderness Back/Spine/Pelvis: Back: no CVA tenderness Skin: Rashes: no rashes Neuro: General: oriented to person, oriented to place, No oriented to time and other (oriented vaguely to situation- states she is in hospital for her kidneys) Extrem: General: Yes edema (trace/+1 BLE pitting edema) Objective Data Labs 08/04/24 06:03 08/05/24 08:19 Labs: Laboratory Results - last 24 hr 08/04/24 08/04/24 08/04/24 12:18 17:53 20:16 Hold Purple Top Sodium Potassium Chloride Carbon Dioxide Anion Gap BUN Creatinine Estim Creat Clear Calc Estimated GFR POC Glucose 149 H 166 H 146 H Random Glucose Calcium 08/05/24 08/05/24 07:26 08:19 Hold Purple Top SEE NOTE Sodium 139 Potassium 5.7 H Chloride 102 Carbon Dioxide 25 Anion Gap 18 BUN 117 H Creatinine 4.00 H* Estim Creat Clear Calc 10.7 Estimated GFR 11 POC Glucose 143 H Random Glucose 150 H Calcium 9.0 Procedures Date of Service Date of Service: 08/05/24 Assessment & Plan Assessment and plan (1) Renal failure: Status: Acute (2) Volume overload: Status: Acute (3) Shortness of breath: Status: Acute Plan Advanced renal failure approaching end-stage renal disease worsening labs reviewed- renal function worsened despite high dose lasix outpatient pateint remains hypervolemic, symptomatic with complaints of dyspnea at rest potassium is elevated at 5.7 today; BUN 117 permacath placement planned for today (DDAVP prior to insertion to reduce risk of uremic bleeding at catheter site with BUN>100)- pt uremic symptoms, hyperkalemia and volume overloaded with inadequate response to diuresis plan for HD today after catheter placement, will also plan for Friday and Friday, then HD break on Friday. Will re-evaluation on Friday discussed plan with patient and family (granddaughter present on facetime phone call with daughter/patient in room), they are all agreeable to this plan Continue IVP 120mg BID lasix as ordered Continue to monitor blood pressures continue to avoid nephrotoxic substances will continue to follow Discussed with Dr Victoria Time Spent With Patient Time: Total time managing care of this patient today ____ minutes. Progress Note: Quality Stroke Does the patient have a stroke diagnosis?: No
[2024-08-05 09:37] LABS: Anion Gap 18 (12-20); Blood Urea Nitrogen 117 mg/dL (9-16); Carbon Dioxide 25 mmol/L (22-29); Chloride 102 mmol/L (96-108); Creatinine Clr Calc Pharmacy 10.7; Estimated Glomerular Filt Rate 11; Glucose Random 150 mg/dL (60-115); Potassium 5.7 mmol/L (3.3-5.1); Sodium 139 mmol/L (135-145)
[2024-08-05] MEDS: fentaNYL citrate/PF 100 MCG/2 ML VIAL 25 MCG IVPUSH (09:42)
--- NOTE | 2024-08-05 10:08 | PM.PROC ---
Brief Operative Note Date of procedure: 08/05/24 Pre-op diagnosis: ESRD Post-op diagnosis: same Procedure: Right IJ 23 cm Permacath placed using US and FL. Tip in right atrium. OK for use. Anesthesia: local
[2024-08-05] MEDS: 0.9 % Sodium Chloride Flush 3 ML SYRINGE IVFLUSH ×3 (10:55→21:35)
[2024-08-05] MEDS: Acetaminophen 325 MG TABLET 650 MG PO ×2 (11:03→16:24)
[2024-08-05 11:07] LABS: Glucose, Whole Blood 248 mg/dL (60-115)
--- NOTE | 2024-08-05 14:38 | HO.PM.IMPN ---
Subjective Subjective Date of Service: 08/05/24 Interval History: Seen and examined this morning Follow-up for DENI Got PermCath this morning history obtained with assistance of daughter at the bedside Review of Systems Review of Systems: Yes all other systems are reviewed and are negative Constitutional Constitutional: Denies fever(s) Cardiovascular Cardiovascular: Denies chest pain Gastrointestinal Gastrointestinal: Denies abdominal pain Physical Exam Vital Signs: Vital Signs: Last Vital Signs Temp 96.8 F 08/05/24 10:58 Pulse 71 08/05/24 10:58 Resp 16 08/05/24 10:58 BP 179/74 H 08/05/24 10:58 Pulse Ox 97 08/05/24 10:58 O2 Del Method Room Air 08/05/24 10:58 BMI result Body Mass Index 32.2 Const: General: comfortable, alert and awake Nutritional Appearance: overweight Chest: Other: right side permcath in place Resp: Effort & Inspection: normal respiratory effort, able to speak in complete sentences, no respiratory distress and no use of accessory muscles Cardio: Rate: regular rate GI: Inspection: No distended Palpation (GI): Soft to palpation Neuro: General: moves all extremities and CN's II-XI intact bilaterally Extrem: General: Yes no pedal edema Objective Data Active Medications Acetaminophen (Acetaminophen 325 Mg Tablet) 650 mg PO Q6H PRN PRN Reason: Pain, Mild (Pain Scale 1-3), fever or headache Last Admin: 08/05/24 11:03 Dose: 650 mg Documented By: JOHNY Albuterol Sulfate (Albuterol Sulfate 90 Mcg 8 Gm Inhaler) 2 puff INHALE Q4H PRN PRN Reason: Wheezing/SOB Albuterol Sulfate (Albuterol Sulfate (0.083%) 2.5 Mg/3 Ml Vial.Neb) 2.5 mg INHALE Q4H PRN PRN Reason: for wheezing Lipase/Protease/Amylase (Lipase/Prot/Amylase 24/76/120k 1 Cap Capsule.) 3 cap PO DAILY [facility] Last Admin: 08/05/24 10:56 Dose: Not Given Documented By: JOHNY Non-Admin Reason: NPO Artificial Tears (Artificial Tears 15 Ml Drops) 1 drop EYE-BOTH DAILY PRN PRN Reason: Dry Eye(S) Atorvastatin Calcium (Atorvastatin Calcium 40 Mg Tablet) 40 mg PO BEDTIME [facility] Last Admin: 08/04/24 22:45 Dose: 40 mg Documented By: EARLENE Calcium Carbonate (Calcium Carbonate 750 Mg Tab.Chew) 750 mg PO Q4H PRN PRN Reason: Heartburn Calcium Polycarbophil (Calcium Polycarbophil Tablet) 2 tab PO DAILY [facility] Last Admin: 08/05/24 10:55 Dose: Not Given Documented By: JOHNY Non-Admin Reason: NPO Cyanocobalamin (Cyanocobalamin (Vitamin B-12) 1,000 Mcg Tablet) 1,000 mcg PO DAILY [facility] Last Admin: 08/05/24 10:55 Dose: Not Given Documented By: JOHNY Non-Admin Reason: NPO Docusate Sodium (Docusate Sodium 100 Mg Capsule) 100 mg PO BID PRN PRN Reason: constipation Last Admin: 08/04/24 11:59 Dose: 100 mg Documented By: SEVERIANO Famotidine (Famotidine 20 Mg Tablet) 20 mg PO DAILY [facility] Last Admin: 08/05/24 10:56 Dose: Not Given Documented By: JOHNY Non-Admin Reason: NPO Fluticasone/Umeclidinium/Vilanterol (Fluticasone/Umeclidinium/Vilanterol 100/62.5/25 Blst.W.Dev) 1 puff INHALE RDAILY [facility] Last Admin: 08/05/24 09:03 Dose: Not Given Documented By: MILI Non-Admin Reason: See Note Furosemide (Furosemide 100 Mg/10 Ml Vial) 120 mg IVPUSH BID@0900,1800 [facility]; Protocol Last Admin: 08/05/24 10:56 Dose: Not Given Documented By: JOHNY Non-Admin Reason: dialysis Gabapentin (Gabapentin 100 Mg Capsule) 200 mg PO BEDTIME [facility] Last Admin: 08/04/24 22:45 Dose: 200 mg Documented By: EARLENE Glucose (Glucose Gel 15 Gm Gel..Gram.) 15 gm PO Q15M PRN; Protocol PRN Reason: per Hypoglycemia Standing Ord. Heparin Sodium (Porcine) (Heparin Sodium,Porcine 5,000 Unit/Ml Vial) 5,000 unit INTRACATH ONCE ONE Stop: 08/06/24 13:01 Heparin Sodium (Porcine) (Heparin Sodium,Porcine 5,000 Unit/Ml Vial) 5,000 unit INTRACATH ONCE ONE Stop: 08/07/24 13:01 Dextrose (D10) 250 mls @ 750 mls/hr IV Q15M PRN; Protocol PRN Reason: per Hypoglycemia Standing Ord. Insulin Human Lispro (Insulin Lispro 100 Unit/Ml 3 Ml Vial) 0 unit SUBCUT QIDACHS [facility]; Protocol Last Admin: 08/05/24 12:01 Dose: Not Given Documented By: JOHNY Non-Admin Reason: npo. went to dialysis. Magnesium Hydroxide (Milk Of Magnesia 30 Ml Oral.Susp) 30 ml PO DAILY PRN PRN Reason: Constipation Meclizine HCl (Meclizine Hcl 25 Mg Tablet) 25 mg PO DAILY PRN PRN Reason: Dizziness Melatonin (Melatonin 3 Mg Tablet) 6 mg PO BEDTIME PRN PRN Reason: Insomnia Metoprolol Tartrate (Metoprolol Tartrate 50 Mg Tablet) 50 mg PO BID [facility]; Protocol Last Admin: 08/05/24 10:56 Dose: Not Given Documented By: JOHNY Non-Admin Reason: NPO Ondansetron HCl (Ondansetron Hcl 4 Mg/2 Ml Vial) 4 mg IVPUSH Q8H PRN PRN Reason: Nausea and Vomiting Polyethylene Glycol (Polyethylene Glycol 3350 17 Gm Powd.Pack) 17 gm PO BID PRN PRN Reason: constipation Last Admin: 08/04/24 11:59 Dose: 17 gm Documented By: SEVERIANO Senna (Sennosides 8.6 Mg Tablet) 8.6 - 17.2 mg PO DAILY [facility] Last Admin: 08/05/24 10:56 Dose: Not Given Documented By: JOHNY Non-Admin Reason: NPO Simethicone (Simethicone 80 Mg Tab.Chew) 160 mg PO QIDWMHS PRN PRN Reason: Gas Last Admin: 08/04/24 22:45 Dose: 160 mg Documented By: EARLENE Sodium Chloride (0.9 % Sodium Chloride Flush 3 Ml Syringe) 3 ml IVFLUSH QSHIFT [facility] Last Admin: 08/05/24 10:55 Dose: 3 ml Documented By: JOHNY Sucralfate (Sucralfate 1 Gm Tablet) 1 gm PO DAILY [facility] Last Admin: 08/05/24 10:56 Dose: Not Given Documented By: JOHNY Non-Admin Reason: NPO Vitamin D (Cholecalciferol (Vitamin D3) 25 Mcg Tablet) 50 mcg PO DAILY [facility] Last Admin: 08/05/24 10:55 Dose: Not Given Documented By: JOHNY Non-Admin Reason: NPO Labs 08/04/24 06:03 08/05/24 08:19 Labs: Laboratory Results - last 24 hr 08/04/24 08/04/24 08/05/24 17:53 20:16 07:26 Hold Purple Top Anion Gap Estim Creat Clear Calc Estimated GFR POC Glucose 166 H 146 H 143 H Random Glucose Calcium 08/05/24 08/05/24 08:19 11:03 Hold Purple Top SEE NOTE Anion Gap 18 Estim Creat Clear Calc 10.7 Estimated GFR 11 POC Glucose 248 H Random Glucose 150 H Calcium 9.0 Assessment and Plan (1) Renal failure: Status: Acute Plan 78-year-old female with pertinent history of advanced CKD approaching ESRD, hypertension, mixed hyperlipidemia, mood disorder, insulin-dependent diabetes mellitus, gastroesophageal reflux disease, chronic pancreatic insufficiency, paroxysmal atrial fibrillation on Eliquis, pulmonary hypertension, congestive heart failure with preserved ejection fraction sent to the 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 Acute on chronic congestive heart failure with preserved ejection fraction: due to volume overload from worsening kidney disease Case discussed with Nephrology, continue Lasix to 120 mg b.i.d. follow Strict I's and O's, daily weight and Low-salt diet. Acute kidney injury on advanced CKD stage 5: Renal functioning worsening despite high-dose Lasix outpatient, patient appears hypervolemic case discussed with Nephrology they recommend Lasix 120 mg b.i.d. PermCath placed 08/05, plan for HD today, tomorrow and Friday Eliquis on hold for dialysis catheter placement, will discuss with IR when safe to resume s/p DDAVP to prevent uremic bleeding Follow BMP Hyperkalemia due to above plan for dialysis today follow BMP Chronic normocytic anemia due to chronic kidney disease stable H&H Hypertension: At baseline, On amlodipine 10 mg, hydralazine 100 mg b.i.d., metoprolol 50 mg b.i.d. and Viagra 20 mg t.i.d. for pulmonary hypertension continue metoprolol 50 mg b.i.d. and hold all other home medications , follow BP and resume medications as needed Mixed hyperlipidemia: Continue Lipitor Neuropathy continue gabapentin paroxysmal atrial fibrillation hold Eliquis, continue metoprolol 50 mg b.i.d. Insulin-dependent diabetes mellitus with hyperglycemia: Initiating Accu-Cheks with sliding scale insulin Gastroesophageal reflux disease: On PPI Chronic pancreatic insufficiency: On enzyme supplementation DVT prophylaxis: Hold Eliquis/Lovenox placed on compression boots. Full code Patient requires continued inpatient hospitalization for IV diuresis, monitoring of kidney function (as above), placement of PermCath and initiation of hemodialysis Quality Stroke Does the patient have a stroke diagnosis?: No VTE Prior VTE?: No VTE Risk Level:: Medical - moderate - high VTE Device Contraindication: N/A - Device Ordered VTE Drug Contraindication: Treatment Not Indicated
[2024-08-05 15:17] LABS: Glucose, Whole Blood 209 mg/dL (60-115)
[2024-08-05] MEDS: Insulin Lispro 100 UNIT/ML 3 ML VIAL SUBCUT ×2 (16:25→21:35)
[2024-08-05] MEDS: Furosemide 100 MG/10 ML VIAL 120 MG IVPUSH (16:25)
[2024-08-05] MEDS: Simethicone 80 MG TAB.CHEW 160 MG PO (16:31)
[2024-08-05 20:16] LABS: Glucose, Whole Blood 208 mg/dL (60-115)
[2024-08-05] MEDS: Metoprolol Tartrate 50 MG TABLET PO (21:34)
[2024-08-05] MEDS: Apixaban 5 MG TABLET PO (21:35)
[2024-08-05] MEDS: Atorvastatin Calcium 40 MG TABLET PO (21:35)
[2024-08-05] MEDS: Gabapentin 100 MG CAPSULE 200 MG PO (21:35)
[2024-08-06 03:11] VITALS: BP 130/61; PULSE 76; RESP 18; TEMP 37.3; O2SAT 92
[2024-08-06] MEDS: Acetaminophen 325 MG TABLET 650 MG PO (04:24)
[2024-08-06 07:07] LABS: Anion Gap 16 (12-20); Blood Urea Nitrogen 85 mg/dL (9-16); Calcium 8.6 mg/dL (8.4-10.2); Carbon Dioxide 23 mmol/L (22-29); Chloride 101 mmol/L (96-108); Creatinine Clr Calc Pharmacy 12.8; Estimated Glomerular Filt Rate 13; Glucose Random 157 mg/dL (60-115); Potassium 5.1 mmol/L (3.3-5.1); Sodium 135 mmol/L (135-145)
[2024-08-06 07:18] VITALS: BP 148/69; PULSE 75; RESP 16; TEMP 37.2; O2SAT 93
[2024-08-06 07:20] LABS: Hematocrit 28.6 % (37.0-47.0); Hemoglobin 9.1 g/dl (12.0-16.0); Mean Corpuscular HGB Conc 31.8 g/dl (31.0-35.0); Mean Corpuscular Hemoglobin 29.8 pg (27.0-33.0); Mean Corpuscular Volume 93.8 fL (80.0-98.0); Mean Platelet Volume 11.9 fL (9.4-12.3); Platelet Count 135 X10*3/uL (160-400); Red Blood Count 3.05 X10*6/uL (4.20-5.50); Red Cell Distribution Width 14.7 % (11.0-16.0); White Blood Count 8.1 X10*3/uL (4.8-10.8)
[2024-08-06 07:26] LABS: Glucose, Whole Blood 147 mg/dL (60-115)
--- NOTE | 2024-08-06 08:30 | P.PNNP_ITS ---
Subjective Subjective Date of Service: 08/06/24 Interval history: 78 y/o female with HTN, DMII, pancreatic insufficiency, ANKIT, afib, CHF, CKD, pulmonary hypertension, asthma. Followed by Dr Mccartney, Nephrology, as outpatient, whom recommended admission due to advanced renal failure approaching ESRD had permcath placed 08/05 received short HD session 08/05, per HD RN had some hypotensive episodes during dialysis so was unable to remove fluid 08/06 potassium normalized to 5.1, creatinine improved to 3.36, BUN improved to 85 pt reports her breathing feels better today compared to yesterday she reports ongoing bilateral leg pain, states the compression devices on her legs are uncomfortable denies nausea, vomiting denies pruritis denies tremors/abnormal movements denies abdominal pain, chest pain denies flank pain denies dysuria, reports she is voiding comfortably/easily denies other concerns Physical Exam 2 Vital Signs: Vital Signs: Last Vital Signs Temp 98.9 F 08/06/24 07:18 Pulse 75 08/06/24 07:18 Resp 16 08/06/24 07:18 BP 155/64 H 08/06/24 08:35 Pulse Ox 93 08/06/24 07:18 O2 Del Method Room Air 08/06/24 07:18 BMI result Body Mass Index 32.2 Const: Other: pt poor historian; discusses with her daughter at bedside who also provides history (hourly sign language interpreter utilized as both are primarily Swazi-speaking). General: no acute distress, alert and awake Orientation/consciousness: o riented to person, oriented to place and No oriented to time Resp: Effort & Inspection: normal respiratory effort, able to speak in complete sentences and no cough Auscultation: crackles Cardio: Jugular venous distension: no JVD Rate: regular rate Rhythm: r egular rhythm Heart sounds: S1 normal heart sound present and S2 normal heart sound present GI: Palpation (GI): Soft to palpation and nontender : General: Yes no CVA tenderness Back/Spine/Pelvis: Back: no CVA tenderness Skin: Rashes: no rashes Neuro: General: oriented to person, oriented to place, No oriented to time and other (oriented vaguely to situation- states she is in hospital for her kidneys) Extrem: General: No edema Objective Data Labs 08/06/24 05:28 08/06/24 05:28 Labs: Laboratory Results - last 24 hr 08/05/24 08/05/24 08/05/24 11:03 14:07 15:13 WBC RBC Hgb Hct MCV MCH MCHC RDW Plt Count MPV Absolute Nucleated RBC Nucleated RBC % (auto) Hold Purple Top Sodium Potassium Chloride Carbon Dioxide Anion Gap BUN Creatinine Estim Creat Clear Calc Estimated GFR POC Glucose 248 H 209 H Random Glucose Calcium Hep Bs Antigen Negative Hep Bs Antibody REACTIVE Hep B Core Total Ab Nonreactive 08/05/24 08/06/24 08/06/24 20:10 05:28 07:22 WBC 8.1 RBC 3.05 L Hgb 9.1 L Hct 28.6 L MCV 93.8 MCH 29.8 MCHC 31.8 RDW 14.7 Plt Count 135 L D MPV 11.9 Absolute Nucleated RBC 0.000 Nucleated RBC % (auto) 0.0 Hold Purple Top SEE NOTE Sodium 135 Potassium 5.1 Chloride 101 Carbon Dioxide 23 Anion Gap 16 BUN 85 H Creatinine 3.36 H Estim Creat Clear Calc 12.8 Estimated GFR 13 POC Glucose 208 H 147 H Random Glucose 157 H Calcium 8.6 Hep Bs Antigen Hep Bs Antibody Hep B Core Total Ab Procedures Date of Service Date of Service: 08/06/24 Assessment & Plan Assessment and plan (1) Renal failure: Status: Acute (2) Volume overload: Status: Acute (3) Shortness of breath: Status: Acute Plan Advanced renal failure approaching end-stage renal disease improving labs reviewed- pt remains hypervolemic patient remains hypervolemic, symptomatic with complaints of dyspnea at rest potassium, BUN significantly improved after first HD session yesterday No uremic symptoms today H&H 9.1 and 28- 20,000 units of epoeitin administered 08/04 calcium normal at 8.6; will check PTH, phosphorous blood pressures acceptable for now non-oliguric at present right IJ permcath in place plan for HD today, as well as 08/07, then HD break on Friday. Will re-evaluation on Friday Continue IVP 120mg BID lasix as ordered Continue to monitor blood pressures continue to avoid nephrotoxic substances will continue to follow Discussed with Dr Victoria Time Spent With Patient Time: Total time managing care of this patient today ____ minutes. Progress Note: Quality Stroke Does the patient have a stroke diagnosis?: No
[2024-08-06] MEDS: 0.9 % Sodium Chloride Flush 3 ML SYRINGE IVFLUSH ×3 (08:33→20:54)
[2024-08-06 08:35] VITALS: BP 155/64
[2024-08-06 08:35] LABS: HBS Num1 76.53 mIU/mL (0-7.99); HBc Num1 0.19 S/CO (0.00-0.79); HBsAGNum1 0.28 S/CO (0.00-0.99); Hepatitis B Core Antibody Nonreactive (Nonreactive); Hepatitis B Surface Antigen Negative (Negative); ~Hepatitis B Surface Antibody REACTIVE (Nonreactive)
[2024-08-06] MEDS: Furosemide 100 MG/10 ML VIAL 120 MG IVPUSH ×2 (08:35→16:42)
[2024-08-06] MEDS: calcium polycarbophiL TABLET 2 TAB PO (08:40)
[2024-08-06] MEDS: Sucralfate 1 GM TABLET PO (08:41)
[2024-08-06] MEDS: Lipase/Prot/Amylase 24/76/120K 1 CAP CAPSULE.DR 3 CAP PO (08:41)
[2024-08-06] MEDS: Metoprolol Tartrate 50 MG TABLET PO ×2 (08:41→20:55)
[2024-08-06] MEDS: Cyanocobalamin (Vitamin B-12) 1,000 MCG TABLET 1000 MCG PO (08:42)
[2024-08-06] MEDS: Cholecalciferol (Vitamin D3) 25 MCG TABLET 50 MCG PO (08:42)
[2024-08-06] MEDS: Sennosides 8.6 MG TABLET PO (08:42)
[2024-08-06] MEDS: Famotidine 20 MG TABLET PO (08:42)
[2024-08-06 11:45] LABS: Glucose, Whole Blood 146 mg/dL (60-115)
[2024-08-06] MEDS: ondansetron HCL 4 MG/2 ML VIAL IVPUSH (13:01)
[2024-08-06] MEDS: Apixaban 5 MG TABLET PO ×2 (13:01→20:55)
--- NOTE | 2024-08-06 14:17 | HO.PM.IMPN ---
Subjective Subjective Date of Service: 08/06/24 Interval History: Seen and examined this morning Follow-up for DENI/CHF History obtained with the assistance of a systems engineering manager Feels improvement in breathing, no overnight events Review of Systems Review of Systems: Yes all other systems are reviewed and are negative Constitutional Constitutional: Denies chills and Denies fever(s) Physical Exam Vital Signs: Vital Signs: Last Vital Signs Temp 98.9 F 08/06/24 07:18 Pulse 75 08/06/24 07:18 Resp 16 08/06/24 07:18 BP 155/64 H 08/06/24 08:35 Pulse Ox 93 08/06/24 07:18 O2 Del Method Room Air 08/06/24 07:18 BMI result Body Mass Index 32.2 Const: General: comfortable, alert and awake Nutritional Appearance: overweight Chest: Other: right side permcath in place Resp: Effort & Inspection: normal respiratory effort, able to speak in complete sentences, no respiratory distress and no use of accessory muscles Cardio: Rate: regular rate GI: Inspection: No distended Palpation (GI): Soft to palpation Neuro: General: moves all extremities and CN's II-XI intact bilaterally Extrem: General: Yes no pedal edema Objective Data Active Medications Acetaminophen (Acetaminophen 325 Mg Tablet) 650 mg PO Q6H PRN PRN Reason: Pain, Mild (Pain Scale 1-3), fever or headache Last Admin: 08/06/24 04:24 Dose: 650 mg Documented By: DANIELLA Albuterol Sulfate (Albuterol Sulfate 90 Mcg 8 Gm Inhaler) 2 puff INHALE Q4H PRN PRN Reason: Wheezing/SOB Albuterol Sulfate (Albuterol Sulfate (0.083%) 2.5 Mg/3 Ml Vial.Neb) 2.5 mg INHALE Q4H PRN PRN Reason: for wheezing Lipase/Protease/Amylase (Lipase/Prot/Amylase 24/76/120k 1 Cap Capsule.) 3 cap PO DAILY [facility] Last Admin: 08/06/24 08:41 Dose: 3 cap Documented By: VICK Apixaban (Apixaban 5 Mg Tablet) 5 mg PO BID [facility] Last Admin: 08/06/24 13:01 Dose: 5 mg Documented By: VICK Artificial Tears (Artificial Tears 15 Ml Drops) 1 drop EYE-BOTH DAILY PRN PRN Reason: Dry Eye(S) Atorvastatin Calcium (Atorvastatin Calcium 40 Mg Tablet) 40 mg PO BEDTIME [facility] Last Admin: 08/05/24 21:35 Dose: 40 mg Documented By: DANIELLA Calcium Carbonate (Calcium Carbonate 750 Mg Tab.Chew) 750 mg PO Q4H PRN PRN Reason: Heartburn Calcium Polycarbophil (Calcium Polycarbophil Tablet) 2 tab PO DAILY [facility] Last Admin: 08/06/24 08:40 Dose: 2 tab Documented By: VICK Cyanocobalamin (Cyanocobalamin (Vitamin B-12) 1,000 Mcg Tablet) 1,000 mcg PO DAILY [facility] Last Admin: 08/06/24 08:42 Dose: 1,000 mcg Documented By: VICK Docusate Sodium (Docusate Sodium 100 Mg Capsule) 100 mg PO BID PRN PRN Reason: constipation Last Admin: 08/04/24 11:59 Dose: 100 mg Documented By: SEVERIANO Famotidine (Famotidine 20 Mg Tablet) 20 mg PO DAILY [facility] Last Admin: 08/06/24 08:42 Dose: 20 mg Documented By: VICK Fluticasone/Umeclidinium/Vilanterol (Fluticasone/Umeclidinium/Vilanterol 100/62.5/25 Blst.W.Dev) 1 puff INHALE RDAILY [facility] Last Admin: 08/06/24 07:53 Dose: Not Given Documented By: JOSE LUIS Non-Admin Reason: Patient Asleep Furosemide (Furosemide 100 Mg/10 Ml Vial) 120 mg IVPUSH BID@0900,1800 [facility]; Protocol Last Admin: 08/06/24 08:35 Dose: 120 mg Documented By: VICK Gabapentin (Gabapentin 100 Mg Capsule) 200 mg PO BEDTIME [facility] Last Admin: 08/05/24 21:35 Dose: 200 mg Documented By: DANIELLA Glucose (Glucose Gel 15 Gm Gel..Gram.) 15 gm PO Q15M PRN; Protocol PRN Reason: per Hypoglycemia Standing Ord. Heparin Sodium (Porcine) (Heparin Sodium,Porcine 5,000 Unit/Ml Vial) 5,000 unit INTRACATH ONCE ONE Stop: 08/07/24 13:01 Dextrose (D10) 250 mls @ 750 mls/hr IV Q15M PRN; Protocol PRN Reason: per Hypoglycemia Standing Ord. Insulin Human Lispro (Insulin Lispro 100 Unit/Ml 3 Ml Vial) 0 unit SUBCUT QIDACHS [facility]; Protocol Last Admin: 08/06/24 11:58 Dose: Not Given Documented By: VICK Non-Admin Reason: No Insulin Coverage Magnesium Hydroxide (Milk Of Magnesia 30 Ml Oral.Susp) 30 ml PO DAILY PRN PRN Reason: Constipation Meclizine HCl (Meclizine Hcl 25 Mg Tablet) 25 mg PO DAILY PRN PRN Reason: Dizziness Melatonin (Melatonin 3 Mg Tablet) 6 mg PO BEDTIME PRN PRN Reason: Insomnia Metoprolol Tartrate (Metoprolol Tartrate 50 Mg Tablet) 50 mg PO BID [facility]; Protocol Last Admin: 08/06/24 08:41 Dose: 50 mg Documented By: VICK Ondansetron HCl (Ondansetron Hcl 4 Mg/2 Ml Vial) 4 mg IVPUSH Q8H PRN PRN Reason: Nausea and Vomiting Last Admin: 08/06/24 13:01 Dose: 4 mg Documented By: VICK Polyethylene Glycol (Polyethylene Glycol 3350 17 Gm Powd.Pack) 17 gm PO BID PRN PRN Reason: constipation Last Admin: 08/04/24 11:59 Dose: 17 gm Documented By: CABRAEGAN Senna (Sennosides 8.6 Mg Tablet) 8.6 - 17.2 mg PO DAILY [facility] Last Admin: 08/06/24 08:42 Dose: 8.6 mg Documented By: VICK Simethicone (Simethicone 80 Mg Tab.Chew) 160 mg PO QIDWMHS PRN PRN Reason: Gas Last Admin: 08/05/24 16:31 Dose: 160 mg Documented By: JOHNY Sodium Chloride (0.9 % Sodium Chloride Flush 3 Ml Syringe) 3 ml IVFLUSH QSHIFT [facility] Last Admin: 08/06/24 08:33 Dose: 3 ml Documented By: VICK Sucralfate (Sucralfate 1 Gm Tablet) 1 gm PO DAILY [facility] Last Admin: 08/06/24 08:41 Dose: 1 gm Documented By: VICK Vitamin D (Cholecalciferol (Vitamin D3) 25 Mcg Tablet) 50 mcg PO DAILY [facility] Last Admin: 08/06/24 08:42 Dose: 50 mcg Documented By: VICK Labs 08/06/24 05:28 08/06/24 05:28 Labs: Laboratory Results - last 24 hr 08/05/24 08/05/24 08/05/24 14:07 15:13 20:10 MCV MCH MCHC RDW Plt Count MPV Absolute Nucleated RBC Nucleated RBC % (auto) Hold Purple Top Anion Gap Estim Creat Clear Calc Estimated GFR POC Glucose 209 H 208 H Random Glucose Calcium Hep Bs Antigen Negative Hep Bs Antibody REACTIVE Hep B Core Total Ab Nonreactive 08/06/24 08/06/24 08/06/24 05:28 07:22 11:41 MCV 93.8 MCH 29.8 MCHC 31.8 RDW 14.7 Plt Count 135 L D MPV 11.9 Absolute Nucleated RBC 0.000 Nucleated RBC % (auto) 0.0 Hold Purple Top SEE NOTE Anion Gap 16 Estim Creat Clear Calc 12.8 Estimated GFR 13 POC Glucose 147 H 146 H Random Glucose 157 H Calcium 8.6 Hep Bs Antigen Hep Bs Antibody Hep B Core Total Ab Assessment and Plan (1) Acute kidney injury: Status: Acute (2) Congestive heart failure: Status: Acute Plan 78-year-old female with pertinent history of advanced CKD approaching ESRD, hypertension, mixed hyperlipidemia, mood disorder, insulin-dependent diabetes mellitus, gastroesophageal reflux disease, chronic pancreatic insufficiency, paroxysmal atrial fibrillation on Eliquis, pulmonary hypertension, congestive heart failure with preserved ejection fraction sent to the emergency department from financial associate's office for IV diuresis. Acute on chronic congestive heart failure with preserved ejection fraction: due to volume overload from worsening kidney disease Case discussed with Nephrology, continue Lasix to 120 mg b.i.d. follow Strict I's and O's, daily weight and Low-salt diet. Acute kidney injury on advanced CKD stage 5: Renal functioning worsening despite high-dose Lasix outpatient, patient appears hypervolemic case discussed with Nephrology -continue Lasix 120 mg b.i.d. PermCath placed 08/05, short HD 08/05, plan for HD today and Friday Hyperkalemia resolved thrombocytopenia follow CBC Chronic normocytic anemia due to chronic kidney disease stable H&H Hypertension: At baseline, On amlodipine 10 mg, hydralazine 100 mg b.i.d., metoprolol 50 mg b.i.d. and Viagra 20 mg t.i.d. for pulmonary hypertension continue metoprolol 50 mg b.i.d. and hold all other home medications , follow BP and resume medications as needed Mixed hyperlipidemia: Continue Lipitor Neuropathy continue gabapentin paroxysmal atrial fibrillation Eliquis, continue metoprolol 50 mg b.i.d. Insulin-dependent diabetes mellitus with hyperglycemia: hold januvua Continue SSI, POCs Gastroesophageal reflux disease: On PPI Chronic pancreatic insufficiency: On enzyme supplementation DVT prophylaxis: Eliquis Full code Patient requires continued inpatient hospitalization for IV diuresis, monitoring of kidney function (as above), initiation of hemodialysis Quality Stroke Does the patient have a stroke diagnosis?: No VTE Prior VTE?: No VTE Risk Level:: Medical - moderate - high VTE Device Contraindication: N/A - Device Ordered VTE Drug Contraindication: Treatment Not Indicated
[2024-08-06 15:51] VITALS: BP 129/64; PULSE 79; RESP 16; TEMP 36.8; O2SAT 98
--- NOTE | 2024-08-06 16:19 | MHC.CM.PN ---
PER MD ROUNDS, PT WILL LIKELY REMAIN OVER THE WEEKEND DCP: HOME RESUME FAMILY SUPPORT VIA [facility] TRAN[facility]
[2024-08-06 16:29] LABS: Glucose, Whole Blood 156 mg/dL (60-115)
[2024-08-06] MEDS: Simethicone 80 MG TAB.CHEW 160 MG PO (16:40)
[2024-08-06] MEDS: Insulin Lispro 100 UNIT/ML 3 ML VIAL SUBCUT ×2 (16:41→20:54)
[2024-08-06 19:34] VITALS: BP 162/60; PULSE 71; RESP 18; TEMP 36.5; O2SAT 92
[2024-08-06 20:02] LABS: Glucose, Whole Blood 165 mg/dL (60-115)
[2024-08-06 20:55] VITALS: BP 162/70; PULSE 71
[2024-08-06] MEDS: Gabapentin 100 MG CAPSULE 200 MG PO (20:55)
[2024-08-06] MEDS: Atorvastatin Calcium 40 MG TABLET PO (20:55)
[2024-08-07] VITALS (8 sets, daily range): BP systolic 139–182; BP diastolic 65–75; PULSE 67–78; RESP 14–18; TEMP 36.2–37.2; O2SAT 93–97
[2024-08-07] MEDS: Acetaminophen 325 MG TABLET 650 MG PO ×3 (05:38→19:53)
[2024-08-07 07:43] LABS: Glucose, Whole Blood 121 mg/dL (60-115)
[2024-08-07] MEDS: Fluticasone/Umeclidinium/Vilanterol 100/62.5/25 BLST.W.DEV 1 PUFF INHALE (07:53)
[2024-08-07 08:00] LABS: Hematocrit 30.7 % (37.0-47.0); Hemoglobin 9.8 g/dl (12.0-16.0); Mean Corpuscular HGB Conc 31.9 g/dl (31.0-35.0); Mean Corpuscular Hemoglobin 29.7 pg (27.0-33.0); Platelet Count 110 X10*3/uL (160-400); Red Cell Distribution Width 14.5 % (11.0-16.0); White Blood Count 6.6 X10*3/uL (4.8-10.8)
[2024-08-07 08:23] LABS: Parathyroid Hormone Intact 207.9 pg/mL (8.7-77.1)
[2024-08-07 08:26] LABS: Anion Gap 12 (12-20); Blood Urea Nitrogen 53 mg/dL (9-16); Calcium 8.7 mg/dL (8.4-10.2); Carbon Dioxide 24 mmol/L (22-29); Chloride 102 mmol/L (96-108); Creatinine Clr Calc Pharmacy 13.8; Estimated Glomerular Filt Rate 14; Glucose Random 127 mg/dL (60-115); Phosphorus 4.9 mg/dL (2.7-4.5); Sodium 133 mmol/L (135-145)
[2024-08-07] MEDS: 0.9 % Sodium Chloride Flush 3 ML SYRINGE IVFLUSH ×3 (08:52→19:54)
[2024-08-07 11:48] LABS: Glucose, Whole Blood 139 mg/dL (60-115)
[2024-08-07] MEDS: ondansetron HCL 4 MG/2 ML VIAL IVPUSH (14:16)
[2024-08-07] MEDS: Lipase/Prot/Amylase 24/76/120K 1 CAP CAPSULE.DR 3 CAP PO (14:20)
[2024-08-07] MEDS: calcium polycarbophiL TABLET 2 TAB PO (14:20)
[2024-08-07] MEDS: Famotidine 20 MG TABLET PO (14:21)
[2024-08-07] MEDS: Sucralfate 1 GM TABLET PO (14:21)
[2024-08-07] MEDS: Cyanocobalamin (Vitamin B-12) 1,000 MCG TABLET 1000 MCG PO (14:21)
[2024-08-07] MEDS: Sennosides 8.6 MG TABLET PO (14:21)
[2024-08-07] MEDS: Cholecalciferol (Vitamin D3) 25 MCG TABLET 50 MCG PO (14:22)
--- NOTE | 2024-08-07 15:46 | P.PNIM_ITS ---
Subjective Subjective Date of Service: 08/07/24 Interval History: seen and examined this morning follow up for worsening renal failure, s/p permcath, started on HD history obtained with assistance of spanish medical interpreter no overnight events [facility] Review of Systems Review of Systems: Yes all other systems are reviewed and are negative Constitutional Constitutional: Denies chills and Denies fever(s) Physical Exam 2 Vital Signs: Vital Signs: Last Vital Signs Temp 98.4 F 08/07/24 15:07 Pulse 68 08/07/24 15:07 Resp 16 08/07/24 15:07 BP 182/75 H 08/07/24 15:07 Pulse Ox 96 08/07/24 15:07 O2 Del Method Room Air 08/07/24 15:07 O2 Flow Rate 2.0 08/06/24 15:51 BMI result Body Mass Index 32.2 Const: General: comfortable, alert and awake Nutritional Appearance: o verweight Chest: Other: right side permcath in place Resp: Effort & Inspection: normal respiratory effort, able to speak in complete sentences, no respiratory distress and no use of accessory muscles Cardio: Rate: regular rate GI: Inspection: No distended Palpation (GI): Soft to palpation Neuro: General: moves all extremities and CN's II-XI intact bilaterally Extrem: General: Yes no pedal edema Objective Data Active Medications Acetaminophen (Acetaminophen 325 Mg Tablet) 650 mg PO Q6H PRN PRN Reason: Pain, Mild (Pain Scale 1-3), fever or headache Last Admin: 08/07/24 14:21 Dose: 650 mg Documented By: JOANNA Albuterol Sulfate (Albuterol Sulfate 90 Mcg 8 Gm Inhaler) 2 puff INHALE Q4H PRN PRN Reason: Wheezing/SOB Albuterol Sulfate (Albuterol Sulfate (0.083%) 2.5 Mg/3 Ml Vial.Neb) 2.5 mg INHALE Q4H PRN PRN Reason: for wheezing Amlodipine Besylate (Amlodipine Besylate 5 Mg Tablet) 5 mg PO DAILY [facility]; Protocol Lipase/Protease/Amylase (Lipase/Prot/Amylase 24/76/120k [address] Capsule.Dr) 3 cap PO DAILY [facility] Last Admin: 08/07/24 14:20 Dose: 3 cap Documented By: JOANNA Apixaban (Apixaban 5 Mg Tablet) 5 mg PO BID [facility] Last Admin: 08/07/24 14:08 Dose: Not Given Documented By: JOANNA Non-Admin Reason: Off unit: Dialysis Artificial Tears (Artificial Tears 15 Ml Drops) 1 drop EYE-BOTH DAILY PRN PRN Reason: Dry Eye(S) Atorvastatin Calcium (Atorvastatin Calcium 40 Mg Tablet) 40 mg PO BEDTIME [facility] Last Admin: 08/06/24 20:55 Dose: 40 mg Documented By: DANIELLA Calcium Carbonate (Calcium Carbonate 750 Mg Tab.Chew) 750 mg PO Q4H PRN PRN Reason: Heartburn Calcium Polycarbophil (Calcium Polycarbophil Tablet) 2 tab PO DAILY [facility] Last Admin: 08/07/24 14:20 Dose: 2 tab Documented By: JOANNA Comments: pt. was in Dialysis Cyanocobalamin (Cyanocobalamin (Vitamin B-12) 1,000 Mcg Tablet) 1,000 mcg PO DAILY [facility] Last Admin: 08/07/24 14:21 Dose: 1,000 mcg Documented By: JOANNA Docusate Sodium (Docusate Sodium 100 Mg Capsule) 100 mg PO BID PRN PRN Reason: constipation Last Admin: 08/04/24 11:59 Dose: 100 mg Documented By: SEVERIANO Famotidine (Famotidine 20 Mg Tablet) 20 mg PO DAILY [facility] Last Admin: 08/07/24 14:21 Dose: 20 mg Documented By: JOANNA Fluticasone/Umeclidinium/Vilanterol (Fluticasone/Umeclidinium/Vilanterol 100/62.5/25 Blst.W.Dev) 1 puff INHALE RDAILY [facility] Last Admin: 08/07/24 07:53 Dose: 1 puff Documented By: KAMILA Furosemide (Furosemide 100 Mg/10 Ml Vial) 120 mg IVPUSH BID@0900,1800 [facility]; Protocol Last Admin: 08/07/24 14:07 Dose: Not Given Documented By: JOANNA Non-Admin Reason: Off unit: Dialysis Gabapentin (Gabapentin 100 Mg Capsule) 200 mg PO BEDTIME [facility] Last Admin: 08/06/24 20:55 Dose: 200 mg Documented By: DANIELLA Glucose (Glucose Gel 15 Gm Gel..Gram.) 15 gm PO Q15M PRN; Protocol PRN Reason: per Hypoglycemia Standing Ord. Dextrose (D10) 250 mls @ 750 mls/hr IV Q15M PRN; Protocol PRN Reason: per Hypoglycemia Standing Ord. Insulin Human Lispro (Insulin Lispro 100 Unit/Ml 3 Ml Vial) 0 unit SUBCUT QIDACHS [facility]; Protocol Last Admin: 08/07/24 12:09 Dose: Not Given Documented By: JOANNA Non-Admin Reason: No Insulin Coverage Magnesium Hydroxide (Milk Of Magnesia 30 Ml Oral.Susp) 30 ml PO DAILY PRN PRN Reason: Constipation Meclizine HCl (Meclizine Hcl 25 Mg Tablet) 25 mg PO DAILY PRN PRN Reason: Dizziness Melatonin (Melatonin 3 Mg Tablet) 6 mg PO BEDTIME PRN PRN Reason: Insomnia Metoprolol Tartrate (Metoprolol Tartrate 50 Mg Tablet) 50 mg PO BID [facility]; Protocol Last Admin: 08/07/24 14:08 Dose: Not Given Documented By: JOANNA Non-Admin Reason: Off unit: Dialysis Ondansetron HCl (Ondansetron Hcl 4 Mg/2 Ml Vial) 4 mg IVPUSH Q8H PRN PRN Reason: Nausea and Vomiting Last Admin: 08/07/24 14:16 Dose: 4 mg Documented By: JOANNA Polyethylene Glycol (Polyethylene Glycol 3350 17 Gm Powd.Pack) 17 gm PO BID PRN PRN Reason: constipation Last Admin: 08/04/24 11:59 Dose: 17 gm Documented By: CABGINNYBE Senna (Sennosides 8.6 Mg Tablet) 8.6 - 17.2 mg PO DAILY [facility] Last Admin: 08/07/24 14:21 Dose: 8.6 mg Documented By: JOANNA Simethicone (Simethicone 80 Mg Tab.Chew) 160 mg PO QIDWMHS PRN PRN Reason: Gas Last Admin: 08/06/24 16:40 Dose: 160 mg Documented By: VICK Sodium Chloride (0.9 % Sodium Chloride Flush 3 Ml Syringe) 3 ml IVFLUSH QSHIFT [facility] Last Admin: 08/07/24 08:52 Dose: 3 ml Documented By: JOANNA Sucralfate (Sucralfate 1 Gm Tablet) 1 gm PO DAILY [facility] Last Admin: 08/07/24 14:21 Dose: 1 gm Documented By: JOANNA Vitamin D (Cholecalciferol (Vitamin D3) 25 Mcg Tablet) 50 mcg PO DAILY [facility] Last Admin: 08/07/24 14:22 Dose: 50 mcg Documented By: JOANNA Labs 08/07/24 07:30 08/07/24 07:30 Labs: Laboratory Results - last 24 hr 08/06/24 08/06/24 08/07/24 16:25 19:55 07:12 MCV MCH MCHC RDW Plt Count MPV Absolute Nucleated RBC Nucleated RBC % (auto) Anion Gap Estim Creat Clear Calc Estimated GFR POC Glucose 156 H 165 H 121 H Random Glucose Calcium Phosphorus PTH Intact 08/07/24 08/07/24 07:30 11:43 MCV 93.0 MCH 29.7 MCHC 31.9 RDW 14.5 Plt Count 110 L MPV 11.0 Absolute Nucleated RBC 0.000 Nucleated RBC % (auto) 0.0 Anion Gap 12 Estim Creat Clear Calc 13.8 Estimated GFR 14 POC Glucose 139 H Random Glucose 127 H Calcium 8.7 Phosphorus 4.9 H PTH Intact 207.9 H Assessment and Plan (1) Renal failure: Status: Acute (2) Volume overload: Status: Acute Plan 78-year-old female with pertinent history of advanced CKD approaching ESRD, hypertension, mixed hyperlipidemia, mood disorder, insulin-dependent diabetes mellitus, gastroesophageal reflux disease, chronic pancreatic insufficiency, paroxysmal atrial fibrillation on Eliquis, pulmonary hypertension, congestive heart failure with preserved ejection fraction sent to the emergency department from cut off saw set up operator's office for IV diuresis. Acute on chronic congestive heart failure with preserved ejection fraction: due to volume overload from worsening kidney disease Case discussed with Nephrology, continue Lasix to 120 mg b.i.d. follow Strict I's and O's, daily weight and Low-salt diet. Acute kidney injury on advanced CKD stage 5: Renal functioning worsening despite high-dose Lasix outpatient, patient appears hypervolemic case discussed with Nephrology -continue Lasix 120 mg b.i.d. PermCath placed 08/05, short HD 08/05, and HD Friday. plan for off day on Friday and re-evaluation on Friday Hyperkalemia resolved thrombocytopenia trending down follow CBC Chronic normocytic anemia due to chronic kidney disease stable H&H Hypertension: At baseline, On amlodipine 10 mg, hydralazine 100 mg b.i.d., metoprolol 50 mg b.i.d. and Viagra 20 mg t.i.d. for pulmonary hypertension continue metoprolol 50 mg b.i.d. bp trending up, will resume norvasc at lower dose hold hydralazine, viagra for now follow bp closely Mixed hyperlipidemia: Continue Lipitor Neuropathy continue gabapentin paroxysmal atrial fibrillation Eliquis, continue metoprolol 50 mg b.i.d. Insulin-dependent diabetes mellitus with hyperglycemia: hold januvua Continue SSI, POCs Gastroesophageal reflux disease: On PPI Chronic pancreatic insufficiency: On enzyme supplementation DVT prophylaxis: Eliquis Full code Patient requires continued inpatient hospitalization for IV diuresis, monitoring of kidney function (as above), initiation of hemodialysis Quality Stroke Does the patient have a stroke diagnosis?: No VTE Prior VTE?: No VTE Risk Level:: Medical - moderate - high VTE Device Contraindication: N/A - Device Ordered VTE Drug Contraindication: Treatment Not Indicated
[2024-08-07] MEDS: amLODIPine Besylate 5 MG TABLET PO (15:52)
[2024-08-07 16:15] LABS: Glucose, Whole Blood 172 mg/dL (60-115)
[2024-08-07] MEDS: Insulin Lispro 100 UNIT/ML 3 ML VIAL SUBCUT ×2 (16:51→19:53)
[2024-08-07] MEDS: Furosemide 100 MG/10 ML VIAL 120 MG IVPUSH (16:56)
[2024-08-07] MEDS: Apixaban 5 MG TABLET PO (19:54)
[2024-08-07] MEDS: Gabapentin 100 MG CAPSULE 200 MG PO (19:54)
[2024-08-07] MEDS: Atorvastatin Calcium 40 MG TABLET PO (19:54)
[2024-08-07] MEDS: Metoprolol Tartrate 50 MG TABLET PO (19:54)
[2024-08-07 20:29] LABS: Glucose, Whole Blood 142 mg/dL (60-115)
[2024-08-08] VITALS (8 sets, daily range): BP systolic 120–169; BP diastolic 58–72; PULSE 68–74; RESP 16; TEMP 36–37.3; O2SAT 94–96
[2024-08-08] MEDS: Simethicone 80 MG TAB.CHEW 160 MG PO ×2 (00:15→20:56)
[2024-08-08] MEDS: oxyCODONE HCl Immed Release 5 MG TABLET 2.5 MG PO (00:15)
[2024-08-08 07:32] LABS: Glucose, Whole Blood 115 mg/dL (60-115)
[2024-08-08 08:15] LABS: Anion Gap 15 (12-20); Blood Urea Nitrogen 30 mg/dL (9-16); Calcium 8.4 mg/dL (8.4-10.2); Carbon Dioxide 21 mmol/L (22-29); Chloride 99 mmol/L (96-108); Creatinine Clr Calc Pharmacy 14.4; Estimated Glomerular Filt Rate 15; Glucose Random 116 mg/dL (60-115); Potassium 4.4 mmol/L (3.3-5.1); Sodium 131 mmol/L (135-145)
[2024-08-08] MEDS: Sennosides 8.6 MG TABLET PO (08:33)
[2024-08-08] MEDS: calcium polycarbophiL TABLET 2 TAB PO (08:33)
[2024-08-08] MEDS: Sucralfate 1 GM TABLET PO (08:34)
[2024-08-08] MEDS: Metoprolol Tartrate 50 MG TABLET PO ×2 (08:34→20:57)
[2024-08-08] MEDS: Lipase/Prot/Amylase 24/76/120K 1 CAP CAPSULE.DR 3 CAP PO (08:40)
[2024-08-08] MEDS: Cholecalciferol (Vitamin D3) 25 MCG TABLET 50 MCG PO (08:40)
[2024-08-08] MEDS: Famotidine 20 MG TABLET PO (08:40)
[2024-08-08] MEDS: amLODIPine Besylate 5 MG TABLET PO (08:41)
[2024-08-08] MEDS: Apixaban 5 MG TABLET PO ×2 (08:41→20:58)
[2024-08-08] MEDS: Furosemide 100 MG/10 ML VIAL 120 MG IVPUSH ×2 (08:50→17:44)
[2024-08-08] MEDS: 0.9 % Sodium Chloride Flush 3 ML SYRINGE IVFLUSH ×3 (08:51→20:58)
[2024-08-08] MEDS: Cyanocobalamin (Vitamin B-12) 1,000 MCG TABLET 1000 MCG PO (09:01)
--- NOTE | 2024-08-08 10:35 | HO.PM.IMPN ---
Subjective Subjective Date of Service: 08/08/24 Interval History: seen and examined this morning follow up for worsening renal failure, s/p permcath placement and initiation of HD history obtained with diplomatic interpreter no overnight events reporting some b/l leg discomfort - improved after taking off pneumoboots denies sob Review of Systems Review of Systems: Yes all other systems are reviewed and are negative Constitutional Constitutional: Denies chills and Denies fever(s) Cardiovascular Cardiovascular: Denies chest pain, Denies palpitations and Denies dyspnea Respiratory Respiratory: Denies cough and Denies dyspnea Gastrointestinal Gastrointestinal: Denies abdominal pain Endocrine Endocrine: Denies palpitations Physical Exam Vital Signs: Vital Signs: Last Vital Signs Temp 98.5 F 08/08/24 07:23 Pulse 68 08/08/24 08:34 Resp 16 08/08/24 07:23 BP 153/67 H 08/08/24 08:41 Pulse Ox 95 08/08/24 07:23 O2 Del Method Room Air 08/08/24 07:23 O2 Flow Rate 2.0 08/06/24 15:51 BMI result Body Mass Index 32.2 Const: General: cooperative, comfortable, well developed, alert and awake Nutritional Appearance: overweight Orientation/consciousness: oriented to person and oriented to place Chest: Other: right side permcath in place Resp: Effort & Inspection: normal respiratory effort, able to speak in complete sentences, no respiratory distress and no use of accessory muscles Auscultation: no crackles and no wheezes Cardio: Rate: regular rate GI: Inspection: No distended Palpation (GI): Soft to palpation and nontender Neuro: General: oriented to person, oriented to place, moves all extremities and CN's II-XI intact bilaterally Extrem: General: Yes no pedal edema Objective Data Active Medications Acetaminophen (Acetaminophen 325 Mg Tablet) 650 mg PO Q6H PRN PRN Reason: Pain, Mild (Pain Scale 1-3), fever or headache Last Admin: 08/07/24 19:53 Dose: 650 mg Documented By: GABRIELA Albuterol Sulfate (Albuterol Sulfate 90 Mcg 8 Gm Inhaler) 2 puff INHALE Q4H PRN PRN Reason: Wheezing/SOB Albuterol Sulfate (Albuterol Sulfate (0.083%) 2.5 Mg/3 Ml Vial.Neb) 2.5 mg INHALE Q4H PRN PRN Reason: for wheezing Amlodipine Besylate (Amlodipine Besylate 5 Mg Tablet) 5 mg PO DAILY [facility]; Protocol Last Admin: 08/08/24 08:41 Dose: 5 mg Documented By: JOANNA Lipase/Protease/Amylase (Lipase/Prot/Amylase /120k 1 Cap Capsule.Dr) 3 cap PO DAILY [facility] Last Admin: 08/08/24 08:40 Dose: 3 cap Documented By: JOANNA Apixaban (Apixaban 5 Mg Tablet) 5 mg PO BID [facility] Last Admin: 08/08/24 08:41 Dose: 5 mg Documented By: JOANNA Artificial Tears (Artificial Tears 15 Ml Drops) 1 drop EYE-BOTH DAILY PRN PRN Reason: Dry Eye(S) Atorvastatin Calcium (Atorvastatin Calcium 40 Mg Tablet) 40 mg PO BEDTIME [facility] Last Admin: 08/07/24 19:54 Dose: 40 mg Documented By: GABRIELA Calcium Carbonate (Calcium Carbonate 750 Mg Tab.Chew) 750 mg PO Q4H PRN PRN Reason: Heartburn Calcium Polycarbophil (Calcium Polycarbophil Tablet) 2 tab PO DAILY [facility] Last Admin: 08/08/24 08:33 Dose: 2 tab Documented By: JOANNA Cyanocobalamin (Cyanocobalamin (Vitamin B-12) 1,000 Mcg Tablet) 1,000 mcg PO DAILY [facility] Last Admin: 08/08/24 09:01 Dose: 1,000 mcg Documented By: JOANNA Docusate Sodium (Docusate Sodium 100 Mg Capsule) 100 mg PO BID PRN PRN Reason: constipation Last Admin: 08/04/24 11:59 Dose: 100 mg Documented By: SEVERIANO Famotidine (Famotidine 20 Mg Tablet) 20 mg PO DAILY [facility] Last Admin: 08/08/24 08:40 Dose: 20 mg Documented By: JOANNA Fluticasone/Umeclidinium/Vilanterol (Fluticasone/Umeclidinium/Vilanterol 100/62.5/25 Blst.W.Dev) 1 puff INHALE RDAILY [facility] Last Admin: 08/08/24 08:20 Dose: Not Given Documented By: KAMILA Non-Admin Reason: med unavail pharmacy called Furosemide (Furosemide 100 Mg/10 Ml Vial) 120 mg IVPUSH BID@0900,1800 [facility]; Protocol Last Admin: 08/08/24 08:50 Dose: 120 mg Documented By: JOANNA Gabapentin (Gabapentin 100 Mg Capsule) 200 mg PO BEDTIME [facility] Last Admin: 08/07/24 19:54 Dose: 200 mg Documented By: GABRIELA Glucose (Glucose Gel 15 Gm Gel..Gram.) 15 gm PO Q15M PRN; Protocol PRN Reason: per Hypoglycemia Standing Ord. Dextrose (D10) 250 mls @ 750 mls/hr IV Q15M PRN; Protocol PRN Reason: per Hypoglycemia Standing Ord. Insulin Human Lispro (Insulin Lispro 100 Unit/Ml 3 Ml Vial) 0 unit SUBCUT QIDACHS [facility]; Protocol Last Admin: 08/08/24 08:18 Dose: Not Given Documented By: JOANNA Non-Admin Reason: No Insulin Coverage Magnesium Hydroxide (Milk Of Magnesia 30 Ml Oral.Susp) 30 ml PO DAILY PRN PRN Reason: Constipation Meclizine HCl (Meclizine Hcl 25 Mg Tablet) 25 mg PO DAILY PRN PRN Reason: Dizziness Melatonin (Melatonin 3 Mg Tablet) 6 mg PO BEDTIME PRN PRN Reason: Insomnia Metoprolol Tartrate (Metoprolol Tartrate 50 Mg Tablet) 50 mg PO BID [facility]; Protocol Last Admin: 08/08/24 08:34 Dose: 50 mg Documented By: JOANNA Ondansetron HCl (Ondansetron Hcl 4 Mg/2 Ml Vial) 4 mg IVPUSH Q8H PRN PRN Reason: Nausea and Vomiting Last Admin: 08/07/24 14:16 Dose: 4 mg Documented By: JOANNA Polyethylene Glycol (Polyethylene Glycol 3350 17 Gm Powd.Pack) 17 gm PO BID PRN PRN Reason: constipation Last Admin: 08/04/24 11:59 Dose: 17 gm Documented By: CABGINNYBE Senna (Sennosides 8.6 Mg Tablet) 8.6 mg PO DAILY [facility] Last Admin: 08/08/24 08:33 Dose: 8.6 mg Documented By: JOANNA Simethicone (Simethicone 80 Mg Tab.Chew) 160 mg PO QIDWMHS PRN PRN Reason: Gas Last Admin: 08/08/24 00:15 Dose: 160 mg Documented By: GABRIELA Sodium Chloride (0.9 % Sodium Chloride Flush 3 Ml Syringe) 3 ml IVFLUSH QSHIFT [facility] Last Admin: 08/08/24 08:51 Dose: 3 ml Documented By: JOANNA Sucralfate (Sucralfate 1 Gm Tablet) 1 gm PO DAILY [facility] Last Admin: 08/08/24 08:34 Dose: 1 gm Documented By: JOANNA Vitamin D (Cholecalciferol (Vitamin D3) 25 Mcg Tablet) 50 mcg PO DAILY [facility] Last Admin: 08/08/24 08:40 Dose: 50 mcg Documented By: JOANNA Labs 08/07/24 07:30 08/08/24 07:05 Labs: Laboratory Results - last 24 hr 08/07/24 08/07/24 08/07/24 11:43 16:11 20:20 Anion Gap Estim Creat Clear Calc Estimated GFR POC Glucose 139 H 172 H 142 H Random Glucose Calcium 08/08/24 08/08/24 07:05 07:26 Anion Gap 15 Estim Creat Clear Calc 14.4 Estimated GFR 15 POC Glucose 115 Random Glucose 116 H Calcium 8.4 Assessment and Plan (1) Renal failure: Status: Acute (2) Volume overload: Status: Acute Plan 78-year-old female with pertinent history of advanced CKD approaching ESRD, hypertension, mixed hyperlipidemia, mood disorder, insulin-dependent diabetes mellitus, gastroesophageal reflux disease, chronic pancreatic insufficiency, paroxysmal atrial fibrillation on Eliquis, pulmonary hypertension, congestive heart failure with preserved ejection fraction sent to the emergency department from ui architect's office for IV diuresis. Acute on chronic congestive heart failure with preserved ejection fraction: due to volume overload from worsening kidney disease Case discussed with Nephrology, continue Lasix to 120 mg b.i.d. follow Strict I's and O's, daily weight and Low-salt diet. Acute kidney injury on advanced CKD stage 5: Renal functioning worsening despite high-dose Lasix outpatient, patient appears hypervolemic case discussed with Nephrology -continue Lasix 120 mg b.i.d. PermCath placed 08/05, short HD 08/05, and HD 08/06, 08/07. plan for off day 08/08 and re-evaluation on Friday looking for [facility] dialysis chair Hyperkalemia resolved thrombocytopenia trending down follow CBC Chronic normocytic anemia due to chronic kidney disease stable H&H Hypertension: At baseline, On amlodipine 10 mg, hydralazine 100 mg b.i.d., metoprolol 50 mg b.i.d. and Viagra 20 mg t.i.d. for pulmonary hypertension continue metoprolol 50 mg b.i.d. bp trending up, resumed norvasc 5 mg hold hydralazine, viagra for now follow bp closely Mixed hyperlipidemia: Continue Lipitor Neuropathy continue gabapentin paroxysmal atrial fibrillation in NSR Eliquis, metoprolol 50 mg b.i.d. Insulin-dependent diabetes mellitus with hyperglycemia: hold januvua Continue SSI, POCs Gastroesophageal reflux disease: On PPI Chronic pancreatic insufficiency: On enzyme supplementation DVT prophylaxis: Eliquis Full code Patient requires continued inpatient hospitalization for IV diuresis, monitoring of kidney function (as above), initiation of hemodialysis Quality Stroke Does the patient have a stroke diagnosis?: No VTE Prior VTE?: No VTE Risk Level:: Medical - moderate - high VTE Device Contraindication: N/A - Device Ordered VTE Drug Contraindication: Treatment Not Indicated
[2024-08-08 11:17] LABS: Glucose, Whole Blood 195 mg/dL (60-115)
[2024-08-08] MEDS: Insulin Lispro 100 UNIT/ML 3 ML VIAL SUBCUT ×2 (12:44→21:12)
[2024-08-08 16:27] LABS: Glucose, Whole Blood 124 mg/dL (60-115)
[2024-08-08] MEDS: Acetaminophen 325 MG TABLET 650 MG PO (20:55)
[2024-08-08] MEDS: Gabapentin 100 MG CAPSULE 200 MG PO (20:56)
[2024-08-08] MEDS: Atorvastatin Calcium 40 MG TABLET PO (20:58)
[2024-08-08 21:13] LABS: Glucose, Whole Blood 216 mg/dL (60-115)
[2024-08-09] VITALS (9 sets, daily range): BP systolic 119–148; BP diastolic 58–70; PULSE 66–77; RESP 16–18; TEMP 36–36.8; O2SAT 93–97
[2024-08-09 07:25] LABS: Hematocrit 35.9 % (37.0-47.0); Hemoglobin 11.5 g/dl (12.0-16.0); Mean Corpuscular Volume 93.7 fL (80.0-98.0); Platelet Count 134 X10*3/uL (160-400); Red Blood Count 3.83 X10*6/uL (4.20-5.50); Red Cell Distribution Width 14.1 % (11.0-16.0); White Blood Count 7.6 X10*3/uL (4.8-10.8)
[2024-08-09 07:39] LABS: Glucose, Whole Blood 124 mg/dL (60-115)
[2024-08-09] MEDS: Fluticasone/Umeclidinium/Vilanterol 100/62.5/25 BLST.W.DEV 1 PUFF INHALE (08:28)
[2024-08-09] MEDS: Furosemide 100 MG/10 ML VIAL 120 MG IVPUSH ×2 (08:32→20:57)
[2024-08-09] MEDS: Sucralfate 1 GM TABLET PO (08:35)
[2024-08-09] MEDS: Cholecalciferol (Vitamin D3) 25 MCG TABLET 50 MCG PO (08:35)
[2024-08-09] MEDS: Lipase/Prot/Amylase 24/76/120K 1 CAP CAPSULE.DR 3 CAP PO (08:35)
[2024-08-09] MEDS: Sennosides 8.6 MG TABLET PO (08:35)
[2024-08-09] MEDS: Metoprolol Tartrate 50 MG TABLET PO ×2 (08:35→20:56)
[2024-08-09] MEDS: calcium polycarbophiL TABLET 2 TAB PO (08:35)
[2024-08-09] MEDS: Famotidine 20 MG TABLET PO (08:35)
--- NOTE | 2024-08-09 08:35 | P.PNNP_ITS ---
Subjective Subjective Date of Service: 08/09/24 Interval history: 78 y/o female with HTN, DMII, pancreatic insufficiency, ANKIT, afib, CHF, CKD, pulmonary hypertension, asthma. Followed by Dr Mccartney, Nephrology, as outpatient, whom recommended admission due to advanced renal failure approaching ESRD had permcath placed 08/05 and recieved HD 08/05, 08/06, 08/07, with plan for HD today pt reports her breathing is ok she reports ongoing bilateral leg pain, states from the compression devices that were on her legs denies nausea, vomiting denies pruritis denies tremors/abnormal movements denies abdominal pain, chest pain denies flank pain denies dysuria, reports she is voiding comfortably/easily denies other concerns Physical Exam 2 Vital Signs: Vital Signs: Last Vital Signs Temp 98 F 08/09/24 14:00 Pulse 66 08/09/24 14:00 Resp 18 08/09/24 14:00 BP 136/63 08/09/24 14:00 Pulse Ox 97 08/09/24 14:00 O2 Del Method Room Air 08/09/24 14:00 O2 Flow Rate 2.0 08/06/24 15:51 BMI result Body Mass Index 32.2 Const: Other: pt poor historian; discusses with her daughter at bedside who also provides history (american sign language interpreter utilized as both are primarily Polish-speaking). General: no acute distress, alert and awake Orientation/consciousness: o riented to person, oriented to place and No oriented to time Resp: Effort & Inspection: normal respiratory effort, able to speak in complete sentences and no cough Auscultation: crackles Cardio: Jugular venous distension: no JVD Rate: regular rate Rhythm: r egular rhythm Heart sounds: S1 normal heart sound present and S2 normal heart sound present GI: Palpation (GI): Soft to palpation and nontender : General: Yes no CVA tenderness Back/Spine/Pelvis: Back: no CVA tenderness Skin: Rashes: no rashes Neuro: General: oriented to person, oriented to place, No oriented to time and other (oriented vaguely to situation- states she is in hospital for her kidneys) Extrem: General: No edema Objective Data Labs 08/09/24 05:36 08/09/24 08:41 Labs: Laboratory Results - last 24 hr 08/08/24 08/08/24 08/09/24 16:13 21:01 05:36 WBC 7.6 RBC 3.83 L Hgb 11.5 L Hct 35.9 L MCV 93.7 MCH 30.0 MCHC 32.0 RDW 14.1 Plt Count 134 L MPV 12.0 Absolute Nucleated RBC 0.000 Nucleated RBC % (auto) 0.0 Sodium Potassium Chloride Carbon Dioxide Anion Gap BUN Creatinine Estim Creat Clear Calc Estimated GFR POC Glucose 124 H 216 H Random Glucose Calcium 08/09/24 08/09/24 08/09/24 07:25 08:41 11:19 WBC RBC Hgb Hct MCV MCH MCHC RDW Plt Count MPV Absolute Nucleated RBC Nucleated RBC % (auto) Sodium 130 L Potassium 5.4 H D Chloride 97 Carbon Dioxide 22 Anion Gap 16 BUN 61 H Creatinine 4.80 H* Estim Creat Clear Calc TNP Estimated GFR 9 POC Glucose 124 H 168 H Random Glucose 136 H Calcium 9.6 D Procedures Date of Service Date of Service: 08/09/24 Assessment & Plan Assessment and plan (1) Renal failure: Status: Acute (2) Volume overload: Status: Acute (3) Shortness of breath: Status: Acute Plan ESRD on HD stable plan to receive HD today No uremic symptoms today H&H 9.1 and 28- 20,000 units of epoeitin administered 08/04 calcium normal at 9.6; 08/07 phos 4.9, PTH 08/07 207 blood pressures acceptable for now oliguric at present pt euvolemic on exam today right IJ permcath in place Continue IVP 120mg BID lasix as ordered working on outpatient placement at [facility], pt has placement for (will be , , Sat HD) Continue to monitor blood pressures continue to avoid nephrotoxic substances will continue to follow Discussed with Dr Mccartney Time Spent With Patient Time: Total time managing care of this patient today ____ minutes. Progress Note: Quality Stroke Does the patient have a stroke diagnosis?: No
[2024-08-09] MEDS: Apixaban 5 MG TABLET PO ×2 (08:36→20:56)
[2024-08-09] MEDS: amLODIPine Besylate 5 MG TABLET PO (08:36)
[2024-08-09] MEDS: Cyanocobalamin (Vitamin B-12) 1,000 MCG TABLET 1000 MCG PO (08:36)
[2024-08-09] MEDS: 0.9 % Sodium Chloride Flush 3 ML SYRINGE IVFLUSH ×2 (08:39→20:57)
[2024-08-09 09:30] LABS: Anion Gap 16 (12-20); Blood Urea Nitrogen 61 mg/dL (9-16); Calcium 9.6 mg/dL (8.4-10.2); Carbon Dioxide 22 mmol/L (22-29); Chloride 97 mmol/L (96-108); Estimated Glomerular Filt Rate 9; Glucose Random 136 mg/dL (60-115); Potassium 5.4 mmol/L (3.3-5.1); Sodium 130 mmol/L (135-145)
[2024-08-09] MEDS: Heparin Sodium,Porcine 5,000 UNIT/ML VIAL 5000 UNIT INTRACATH (10:53)
--- NOTE | 2024-08-09 11:15 | P.PNIM_ITS ---
Subjective Subjective Date of Service: 08/09/24 Interval History: follow up for worsening renal failure, s/p permcath placement and initiation of HD no overnight events denies sob Review of Systems Review of Systems: Yes all other systems are reviewed and are negative Constitutional Constitutional: Denies chills and Denies fever(s) Cardiovascular Cardiovascular: Denies chest pain, Denies palpitations and Denies dyspnea Respiratory Respiratory: Denies cough and Denies dyspnea Gastrointestinal Gastrointestinal: Denies abdominal pain Endocrine Endocrine: Denies palpitations Physical Exam 2 Vital Signs: Vital Signs: Last Vital Signs Temp 97.7 F 08/09/24 08:00 Pulse 69 08/09/24 08:30 Resp 18 08/09/24 08:30 BP 121/70 08/09/24 08:00 Pulse Ox 96 08/09/24 08:00 O2 Del Method Room Air 08/09/24 08:00 O2 Flow Rate 2.0 08/06/24 15:51 BMI result Body Mass Index 32.2 Appearing in no acute distress lung sounds are clear to auscultation heart regular rate rhythm, clear S1, S2 positive bowel sounds, abdomen is soft, nontender neuro patient is alert x3, no focal deficits Objective Data Active Medications Acetaminophen (Acetaminophen 325 Mg Tablet) 650 mg PO Q6H PRN PRN Reason: Pain, Mild (Pain Scale 1-3), fever or headache Last Admin: 08/08/24 20:55 Dose: 650 mg Documented By: GARRY Albuterol Sulfate (Albuterol Sulfate 90 Mcg 8 Gm Inhaler) 2 puff INHALE Q4H PRN PRN Reason: Wheezing/SOB Albuterol Sulfate (Albuterol Sulfate (0.083%) 2.5 Mg/3 Ml Vial.Neb) 2.5 mg INHALE Q4H PRN PRN Reason: for wheezing Lipase/Protease/Amylase (Lipase/Prot/Amylase 24/76/120k 1 Cap Capsule.) 3 cap PO DAILY [facility] Last Admin: 08/09/24 08:35 Dose: 3 cap Documented By: NOEMY Apixaban (Apixaban 5 Mg Tablet) 5 mg PO BID [facility] Last Admin: 08/09/24 08:36 Dose: 5 mg Documented By: NOEMY Artificial Tears (Artificial Tears 15 Ml Drops) 1 drop EYE-BOTH DAILY PRN PRN Reason: Dry Eye(S) Atorvastatin Calcium (Atorvastatin Calcium 40 Mg Tablet) 40 mg PO BEDTIME [facility] Last Admin: 08/08/24 20:58 Dose: 40 mg Documented By: GARRY Calcium Carbonate (Calcium Carbonate 750 Mg Tab.Chew) 750 mg PO Q4H PRN PRN Reason: Heartburn Calcium Polycarbophil (Calcium Polycarbophil Tablet) 2 tab PO DAILY [facility] Last Admin: 08/09/24 08:35 Dose: 2 tab Documented By: NOEMY Cyanocobalamin (Cyanocobalamin (Vitamin B-12) 1,000 Mcg Tablet) 1,000 mcg PO DAILY [facility] Last Admin: 08/09/24 08:36 Dose: 1,000 mcg Documented By: NOEMY Docusate Sodium (Docusate Sodium 100 Mg Capsule) 100 mg PO BID PRN PRN Reason: constipation Last Admin: 08/04/24 11:59 Dose: 100 mg Documented By: CABRAEGAN Famotidine (Famotidine 20 Mg Tablet) 20 mg PO DAILY [facility] Last Admin: 08/09/24 08:35 Dose: 20 mg Documented By: NOEMY Fluticasone/Umeclidinium/Vilanterol (Fluticasone/Umeclidinium/Vilanterol 100/62.5/25 Blst.W.Dev) 1 puff INHALE RDAILY [facility] Last Admin: 08/09/24 08:28 Dose: 1 puff Documented By: ANNELISE Furosemide (Furosemide 100 Mg/10 Ml Vial) 120 mg IVPUSH BID@0900,1800 [facility]; Protocol Last Admin: 08/09/24 08:32 Dose: 120 mg Documented By: NOEMY Gabapentin (Gabapentin 100 Mg Capsule) 200 mg PO BEDTIME [facility] Last Admin: 08/08/24 20:56 Dose: 200 mg Documented By: GARRY Glucose (Glucose Gel 15 Gm Gel..Gram.) 15 gm PO Q15M PRN; Protocol PRN Reason: per Hypoglycemia Standing Ord. Dextrose (D10) 250 mls @ 750 mls/hr IV Q15M PRN; Protocol PRN Reason: per Hypoglycemia Standing Ord. Insulin Human Lispro (Insulin Lispro 100 Unit/Ml 3 Ml Vial) 0 unit SUBCUT QIDACHS [facility]; Protocol Last Admin: 08/09/24 07:47 Dose: Not Given Documented By: NOEMY Non-Admin Reason: No Insulin Coverage Magnesium Hydroxide (Milk Of Magnesia 30 Ml Oral.Susp) 30 ml PO DAILY PRN PRN Reason: Constipation Meclizine HCl (Meclizine Hcl 25 Mg Tablet) 25 mg PO DAILY PRN PRN Reason: Dizziness Melatonin (Melatonin 3 Mg Tablet) 6 mg PO BEDTIME PRN PRN Reason: Insomnia Metoprolol Tartrate (Metoprolol Tartrate 50 Mg Tablet) 50 mg PO BID [facility]; Protocol Last Admin: 08/09/24 08:35 Dose: 50 mg Documented By: NOEMY Ondansetron HCl (Ondansetron Hcl 4 Mg/2 Ml Vial) 4 mg IVPUSH Q8H PRN PRN Reason: Nausea and Vomiting Last Admin: 08/07/24 14:16 Dose: 4 mg Documented By: JOANNA Polyethylene Glycol (Polyethylene Glycol 3350 17 Gm Powd.Pack) 17 gm PO BID PRN PRN Reason: constipation Last Admin: 08/04/24 11:59 Dose: 17 gm Documented By: MAGOBE Senna (Sennosides 8.6 Mg Tablet) 8.6 mg PO DAILY [facility] Last Admin: 08/09/24 08:35 Dose: 8.6 mg Documented By: NOEMY Simethicone (Simethicone 80 Mg Tab.Chew) 160 mg PO QIDWMHS PRN PRN Reason: Gas Last Admin: 08/08/24 20:56 Dose: 160 mg Documented By: GARRY Sodium Chloride (0.9 % Sodium Chloride Flush 3 Ml Syringe) 3 ml IVFLUSH QSHIFT [facility] Last Admin: 08/09/24 08:39 Dose: 3 ml Documented By: NOEMY Sucralfate (Sucralfate 1 Gm Tablet) 1 gm PO DAILY [facility] Last Admin: 08/09/24 08:35 Dose: 1 gm Documented By: NOEMY Vitamin D (Cholecalciferol (Vitamin D3) 25 Mcg Tablet) 50 mcg PO DAILY [facility] Last Admin: 08/09/24 08:35 Dose: 50 mcg Documented By: NOEMY Labs 08/09/24 05:36 08/09/24 08:41 Labs: Laboratory Results - last 24 hr 08/08/24 08/08/24 08/08/24 11:11 16:13 21:01 MCV MCH MCHC RDW Plt Count MPV Absolute Nucleated RBC Nucleated RBC % (auto) Anion Gap Estim Creat Clear Calc Estimated GFR POC Glucose 195 H 124 H 216 H Random Glucose Calcium 08/09/24 08/09/24 08/09/24 05:36 07:25 08:41 MCV 93.7 MCH 30.0 MCHC 32.0 RDW 14.1 Plt Count 134 L MPV 12.0 Absolute Nucleated RBC 0.000 Nucleated RBC % (auto) 0.0 Anion Gap 16 Estim Creat Clear Calc 8.9 Estimated GFR 9 POC Glucose 124 H Random Glucose 136 H Calcium 9.6 D Assessment and Plan (1) Renal failure: Status: Acute (2) Volume overload: Status: Acute Plan 78-year-old female with pertinent history of advanced CKD approaching ESRD, hypertension, mixed hyperlipidemia, mood disorder, insulin-dependent diabetes mellitus, gastroesophageal reflux disease, chronic pancreatic insufficiency, paroxysmal atrial fibrillation on Eliquis, pulmonary hypertension, congestive heart failure with preserved ejection fraction sent to the emergency department from quality associate's office for IV diuresis. Acute on chronic congestive heart failure with preserved ejection fraction due to volume overload from worsening kidney disease Case discussed with Nephrology>continue Lasix to 120 mg b.i.d. follow Strict I's and O's, daily weight and Low-salt diet. Acute kidney injury now ESRD on dialysis Renal functioning worsening despite high-dose Lasix outpatient, patient appears hypervolemic case discussed with Nephrology -continue Lasix 120 mg b.i.d. PermCath placed 08/05, HD 08/05, 08/06, 08/07. plan for off day 08/08 dialysis today looking for oupatient dialysis chair Hyperkalemia 5.4, recheck after dialysis Hyponatremia mild, follow labs after dialysis thrombocytopenia trending down follow CBC Chronic normocytic anemia due to chronic kidney disease stable H&H Hypertension At baseline, On amlodipine 10 mg, hydralazine 100 mg b.i.d., metoprolol 50 mg b.i.d. and Viagra 20 mg t.i.d. for pulmonary hypertension continue metoprolol 50 mg b.i.d. bp trending up, resumed norvasc 5 mg hold hydralazine, viagra for now follow bp closely Mixed hyperlipidemia: Continue Lipitor Neuropathy continue gabapentin paroxysmal atrial fibrillation in NSR Elikeyla, metoprolol 50 mg b.i.d. Insulin-dependent diabetes mellitus with hyperglycemia: hold januvua Continue SSI, POCs Gastroesophageal reflux disease: On PPI Chronic pancreatic insufficiency: On enzyme supplementation DVT prophylaxis: Juan Daniel Attending Dr. [place] Full code Patient requires continued inpatient hospitalization for IV diuresis, monitoring of kidney function (as above), initiation of hemodialysis Quality Stroke Does the patient have a stroke diagnosis?: No VTE Prior VTE?: No VTE Risk Level:: Medical - moderate - high VTE Device Contraindication: N/A - Device Ordered VTE Drug Contraindication: Treatment Not Indicated
[2024-08-09 11:28] LABS: Glucose, Whole Blood 168 mg/dL (60-115)
[2024-08-09] MEDS: Insulin Lispro 100 UNIT/ML 3 ML VIAL SUBCUT ×2 (11:43→21:53)
[2024-08-09] MEDS: Gabapentin 100 MG CAPSULE 200 MG PO (20:56)
[2024-08-09] MEDS: Atorvastatin Calcium 40 MG TABLET PO (20:56)
[2024-08-09 21:22] LABS: Glucose, Whole Blood 164 mg/dL (60-115)
[2024-08-09] MEDS: Simethicone 80 MG TAB.CHEW 160 MG PO (21:56)
[2024-08-10] MEDS: Acetaminophen 325 MG TABLET 650 MG PO ×2 (04:13→12:26)
[2024-08-10 07:27] LABS: Glucose, Whole Blood 128 mg/dL (60-115)
[2024-08-10 08:00] VITALS: BP 115/55; PULSE 73; RESP 18; TEMP 37.1; O2SAT 93
[2024-08-10] MEDS: Fluticasone/Umeclidinium/Vilanterol 100/62.5/25 BLST.W.DEV 1 PUFF INHALE (08:14)
[2024-08-10 08:16] VITALS: PULSE 73; RESP 16; O2SAT 91
--- NOTE | 2024-08-10 08:30 | P.PNNP_ITS ---
Subjective Subjective Date of Service: 08/10/24 Interval history: 78 y/o female with HTN, DMII, pancreatic insufficiency, ANKIT, afib, CHF, CKD, pulmonary hypertension, asthma. Followed by Dr Mccartney, Nephrology, as outpatient, whom recommended admission due to advanced renal failure approaching ESRD had permcath placed 08/05 and recieved HD 08/05, 08/06, 08/07, 08/09 pt reports her breathing is ok continues with ongoing bilateral leg pain, states from the compression devices that were on her legs denies nausea, vomiting denies pruritis denies tremors/abnormal movements denies abdominal pain, chest pain denies flank pain denies dysuria, reports she is voiding comfortably/easily denies other concerns Physical Exam 2 Vital Signs: Vital Signs: Last Vital Signs Temp 98.7 F 08/10/24 08:00 Pulse 73 08/10/24 09:23 Resp 16 08/10/24 08:16 BP 115/55 L 08/10/24 08:00 Pulse Ox 93 08/10/24 08:00 O2 Del Method Room Air 08/10/24 08:00 O2 Flow Rate 2.0 08/06/24 15:51 BMI result Body Mass Index 32.2 Const: Other: pt poor historian; discusses with her daughter at bedside who also provides history (diplomatic interpreter/translator utilized as both are primarily Cook Islander-speaking). General: no acute distress, alert and awake Orientation/consciousness: o riented to person, oriented to place and No oriented to time Resp: Effort & Inspection: normal respiratory effort, able to speak in complete sentences and no cough Auscultation: clear to auscultation bilaterally Cardio: Jugular venous distension: no JVD Rate: regular rate Rhythm: r egular rhythm Heart sounds: S1 normal heart sound present and S2 normal heart sound present GI: Palpation (GI): Soft to palpation and nontender : General: Yes no CVA tenderness Back/Spine/Pelvis: Back: no CVA tenderness Skin: Rashes: no rashes Neuro: General: oriented to person, oriented to place, No oriented to time and other (oriented vaguely to situation- states she is in hospital for her kidneys) Extrem: General: No edema Objective Data Labs 08/09/24 05:36 08/10/24 07:36 Labs: Laboratory Results - last 24 hr 1108/09/24 08/09/24 08:41 11:19 21:02 Sodium Potassium Chloride Carbon Dioxide Anion Gap BUN Creatinine 4.80 H* Estim Creat Clear Calc TNP Estimated GFR POC Glucose 168 H 164 H Random Glucose Calcium Phosphorus 08/10/24 08/10/24 07:24 07:36 Sodium 137 Potassium 3.9 D Chloride 97 Carbon Dioxide 26 Anion Gap 18 BUN 36 H Creatinine 3.77 H Estim Creat Clear Calc 11.3 Estimated GFR 12 POC Glucose 128 H Random Glucose 132 H Calcium 9.3 Phosphorus 5.1 H Procedures Date of Service Date of Service: 08/10/24 Assessment & Plan Assessment and plan (1) Renal failure: Status: Acute (2) Volume overload: Status: Acute (3) Shortness of breath: Status: Acute Plan ESRD on HD stable plan to receive HD today No uremic symptoms today H&H 11.5 and 35- 20,000 units of epoeitin administered 08/04 calcium normal at 9.3; 08/10 phos 5.1, PTH 08/07 207 blood pressures acceptable oliguric at present pt euvolemic on exam today right IJ permcath in place May discontinue IVP 120mg BID lasix - will continue to manage fluid with HD working on outpatient placement at [facility], pt has placement for (will be , , Sat HD) Continue to monitor blood pressures continue to avoid nephrotoxic substances will continue to follow Discussed with Dr Mccartney Time Spent With Patient Time: Total time managing care of this patient today ____ minutes. Progress Note: Quality Stroke Does the patient have a stroke diagnosis?: No
[2024-08-10] MEDS: Sucralfate 1 GM TABLET PO (08:57)
[2024-08-10] MEDS: Lipase/Prot/Amylase 24/76/120K 1 CAP CAPSULE.DR 3 CAP PO (08:57)
[2024-08-10] MEDS: Furosemide 100 MG/10 ML VIAL 120 MG IVPUSH (08:57)
[2024-08-10] MEDS: Calcium Carbonate 750 MG TAB.CHEW PO (08:57)
[2024-08-10] MEDS: Sennosides 8.6 MG TABLET PO (08:58)
[2024-08-10] MEDS: Apixaban 5 MG TABLET PO ×2 (08:58→19:59)
[2024-08-10] MEDS: calcium polycarbophiL TABLET 2 TAB PO (08:58)
[2024-08-10] MEDS: Cholecalciferol (Vitamin D3) 25 MCG TABLET 50 MCG PO (08:58)
[2024-08-10] MEDS: Famotidine 20 MG TABLET PO (08:58)
[2024-08-10] MEDS: Metoprolol Tartrate 50 MG TABLET PO ×2 (08:58→19:59)
[2024-08-10] MEDS: 0.9 % Sodium Chloride Flush 3 ML SYRINGE IVFLUSH ×3 (08:59→19:59)
[2024-08-10] MEDS: Simethicone 80 MG TAB.CHEW 160 MG PO (08:59)
[2024-08-10 09:03] LABS: Anion Gap 18 (12-20); Blood Urea Nitrogen 36 mg/dL (9-16); Calcium 9.3 mg/dL (8.4-10.2); Carbon Dioxide 26 mmol/L (22-29); Chloride 97 mmol/L (96-108); Creatinine Clr Calc Pharmacy 11.3; Estimated Glomerular Filt Rate 12; Glucose Random 132 mg/dL (60-115); Phosphorus 5.1 mg/dL (2.7-4.5); Potassium 3.9 mmol/L (3.3-5.1); Sodium 137 mmol/L (135-145)
--- NOTE | 2024-08-10 09:18 | HO.PM.IMPN ---
Subjective Subjective Date of Service: 08/10/24 Interval History: follow up for worsening renal failure, s/p permcath placement and initiation of HD no overnight events denies sob Review of Systems Review of Systems: Yes all other systems are reviewed and are negative Constitutional Constitutional: Denies chills and Denies fever(s) Cardiovascular Cardiovascular: Denies chest pain, Denies palpitations and Denies dyspnea Respiratory Respiratory: Denies cough and Denies dyspnea Gastrointestinal Gastrointestinal: Denies abdominal pain Endocrine Endocrine: Denies palpitations Physical Exam Vital Signs: Vital Signs: Last Vital Signs Temp 98.7 F 08/10/24 08:00 Pulse 73 08/10/24 08:16 Resp 16 08/10/24 08:16 BP 115/55 L 08/10/24 08:00 Pulse Ox 93 08/10/24 08:00 O2 Del Method Room Air 08/10/24 08:00 O2 Flow Rate 2.0 08/06/24 15:51 BMI result Body Mass Index 32.2 Appearing in no acute distress head is normocephalic atraumatic eyes pupils are PERRLA sclera is anicteric mouth throat mucous membranes are intact and moist neck is supple no lymphadenopathy, no JVD noted lung sounds are clear to auscultation heart regular rate rhythm, clear S1, S2 positive bowel sounds, abdomen is soft, nontender neuro patient is alert x3, no focal deficits Objective Data Active Medications Acetaminophen (Acetaminophen 325 Mg Tablet) 650 mg PO Q6H PRN PRN Reason: Pain, Mild (Pain Scale 1-3), fever or headache Last Admin: 08/10/24 04:13 Dose: 650 mg Documented By: BRIGHT Albuterol Sulfate (Albuterol Sulfate 90 Mcg 8 Gm Inhaler) 2 puff INHALE Q4H PRN PRN Reason: Wheezing/SOB Albuterol Sulfate (Albuterol Sulfate (0.083%) 2.5 Mg/3 Ml Vial.Neb) 2.5 mg INHALE Q4H PRN PRN Reason: for wheezing Lipase/Protease/Amylase (Lipase/Prot/Amylase 24/76/120k 1 Cap Capsule.) 3 cap PO DAILY [facility] Last Admin: 08/10/24 08:57 Dose: 3 cap Documented By: JOANNA Apixaban (Apixaban 5 Mg Tablet) 5 mg PO BID [facility] Last Admin: 08/10/24 08:58 Dose: 5 mg Documented By: JOANNA Artificial Tears (Artificial Tears 15 Ml Drops) 1 drop EYE-BOTH DAILY PRN PRN Reason: Dry Eye(S) Atorvastatin Calcium (Atorvastatin Calcium 40 Mg Tablet) 40 mg PO BEDTIME [facility] Last Admin: 08/09/24 20:56 Dose: 40 mg Documented By: BRIGHT Calcium Carbonate (Calcium Carbonate 750 Mg Tab.Chew) 750 mg PO Q4H PRN PRN Reason: Heartburn Last Admin: 08/10/24 08:57 Dose: 750 mg Documented By: JOANNA Calcium Polycarbophil (Calcium Polycarbophil Tablet) 2 tab PO DAILY [facility] Last Admin: 08/10/24 08:58 Dose: 2 tab Documented By: JOANNA Cyanocobalamin (Cyanocobalamin (Vitamin B-12) 1,000 Mcg Tablet) 1,000 mcg PO DAILY [facility] Last Admin: 08/09/24 08:36 Dose: 1,000 mcg Documented By: GRAZCJ Docusate Sodium (Docusate Sodium 100 Mg Capsule) 100 mg PO BID PRN PRN Reason: constipation Last Admin: 08/04/24 11:59 Dose: 100 mg Documented By: SEVERIANO Famotidine (Famotidine 20 Mg Tablet) 20 mg PO DAILY [facility] Last Admin: 08/10/24 08:58 Dose: 20 mg Documented By: JOANNA Fluticasone/Umeclidinium/Vilanterol (Fluticasone/Umeclidinium/Vilanterol 100/62.5/25 Blst.W.Dev) 1 puff INHALE RDAILY [facility] Last Admin: 08/10/24 08:14 Dose: 1 puff Documented By: MILI Furosemide (Furosemide 100 Mg/10 Ml Vial) 120 mg IVPUSH BID@0900,1800 [facility]; Protocol Last Admin: 08/10/24 08:57 Dose: 120 mg Documented By: JOANNA Gabapentin (Gabapentin 100 Mg Capsule) 200 mg PO BEDTIME [facility] Last Admin: 08/09/24 20:56 Dose: 200 mg Documented By: BRIGHT Glucose (Glucose Gel 15 Gm Gel..Gram.) 15 gm PO Q15M PRN; Protocol PRN Reason: per Hypoglycemia Standing Ord. Dextrose (D10) 250 mls @ 750 mls/hr IV Q15M PRN; Protocol PRN Reason: per Hypoglycemia Standing Ord. Insulin Human Lispro (Insulin Lispro 100 Unit/Ml 3 Ml Vial) 0 unit SUBCUT QIDACHS [facility]; Protocol Last Admin: 08/10/24 08:03 Dose: Not Given Documented By: JOANNA Non-Admin Reason: No Insulin Coverage Magnesium Hydroxide (Milk Of Magnesia 30 Ml Oral.Susp) 30 ml PO DAILY PRN PRN Reason: Constipation Meclizine HCl (Meclizine Hcl 25 Mg Tablet) 25 mg PO DAILY PRN PRN Reason: Dizziness Melatonin (Melatonin 3 Mg Tablet) 6 mg PO BEDTIME PRN PRN Reason: Insomnia Metoprolol Tartrate (Metoprolol Tartrate 50 Mg Tablet) 50 mg PO BID [facility]; Protocol Last Admin: 08/10/24 08:58 Dose: 50 mg Documented By: JOANNA Ondansetron HCl (Ondansetron Hcl 4 Mg/2 Ml Vial) 4 mg IVPUSH Q8H PRN PRN Reason: Nausea and Vomiting Last Admin: 08/07/24 14:16 Dose: 4 mg Documented By: JOANNA Polyethylene Glycol (Polyethylene Glycol 3350 17 Gm Powd.Pack) 17 gm PO BID PRN PRN Reason: constipation Last Admin: 08/04/24 11:59 Dose: 17 gm Documented By: CABANBE Senna (Sennosides 8.6 Mg Tablet) 8.6 mg PO DAILY [facility] Last Admin: 08/10/24 08:58 Dose: 8.6 mg Documented By: JOANNA Simethicone (Simethicone 80 Mg Tab.Chew) 160 mg PO QIDWMHS PRN PRN Reason: Gas Last Admin: 08/10/24 08:59 Dose: 160 mg Documented By: JOANNA Sodium Chloride (0.9 % Sodium Chloride Flush 3 Ml Syringe) 3 ml IVFLUSH QSHIFT [facility] Last Admin: 08/10/24 08:59 Dose: 3 ml Documented By: JOANNA Sucralfate (Sucralfate 1 Gm Tablet) 1 gm PO DAILY [facility] Last Admin: 08/10/24 08:57 Dose: 1 gm Documented By: JOANNA Vitamin D (Cholecalciferol (Vitamin D3) 25 Mcg Tablet) 50 mcg PO DAILY [facility] Last Admin: 08/10/24 08:58 Dose: 50 mcg Documented By: JOANNA Labs 08/09/24 05:36 08/10/24 07:36 Labs: Laboratory Results - last 24 hr 08/09/24 08/09/24 08/09/24 08:41 11:19 21:02 Anion Gap 16 Estim Creat Clear Calc TNP Estimated GFR 9 POC Glucose 168 H 164 H Random Glucose 136 H Calcium 9.6 D Phosphorus 08/10/24 08/10/24 07:24 07:36 Anion Gap 18 Estim Creat Clear Calc 11.3 Estimated GFR 12 POC Glucose 128 H Random Glucose 132 H Calcium 9.3 Phosphorus 5.1 H Assessment and Plan (1) Renal failure: Status: Acute (2) Volume overload: Status: Acute Plan 78-year-old female with pertinent history of advanced CKD approaching ESRD, hypertension, mixed hyperlipidemia, mood disorder, insulin-dependent diabetes mellitus, gastroesophageal reflux disease, chronic pancreatic insufficiency, paroxysmal atrial fibrillation on Eliquis, pulmonary hypertension, congestive heart failure with preserved ejection fraction sent to the emergency department from doorperson or luggage porter's office for IV diuresis. Acute on chronic congestive heart failure with preserved ejection fraction due to volume overload from worsening kidney disease Case discussed with Nephrology>stop IV lasix , plan for op dialysis at [facility]. follow Strict I's and O's, daily weight and Low-salt diet. Acute kidney injury now ESRD on dialysis s/p IV lasix PermCath placed 08/05, HD 08/05, 08/06, 08/07, 08/09 outpatient dialysis chair at [facility] Hyperkalemia. Resolved after dialysis Hyponatremia Resolved thrombocytopenia trending down follow CBC Chronic normocytic anemia due to chronic kidney disease stable H&H Hypertension At baseline, On amlodipine 10 mg, hydralazine 100 mg b.i.d., metoprolol 50 mg b.i.d. and Viagra 20 mg t.i.d. for pulmonary hypertension continue metoprolol 50 mg b.i.d. bp trending up, resumed norvasc 5 mg hold hydralazine, viagra for now follow bp closely Mixed hyperlipidemia Continue Lipitor Neuropathy continue gabapentin paroxysmal atrial fibrillation in NSR Eliquis, metoprolol 50 mg b.i.d. Insulin-dependent diabetes mellitus with hyperglycemia: hold januvua Continue SSI, POCs Gastroesophageal reflux disease: On PPI Chronic pancreatic insufficiency: On enzyme supplementation DVT prophylaxis: Juan Daniel Attending Dr. Tapia Full code Patient requires continued inpatient hospitalization for IV diuresis, monitoring of kidney function (as above), initiation of hemodialysis Quality Stroke Does the patient have a stroke diagnosis?: No VTE Prior VTE?: No VTE Risk Level:: Medical - moderate - high VTE Device Contraindication: N/A - Device Ordered VTE Drug Contraindication: Treatment Not Indicated
[2024-08-10 09:23] VITALS: PULSE 73
[2024-08-10] MEDS: Cyanocobalamin (Vitamin B-12) 1,000 MCG TABLET 1000 MCG PO (09:48)
--- NOTE | 2024-08-10 10:24 | MHC.CM.PN ---
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
[2024-08-10 11:22] LABS: Glucose, Whole Blood 263 mg/dL (60-115)
[2024-08-10] MEDS: Insulin Lispro 100 UNIT/ML 3 ML VIAL SUBCUT ×2 (12:25→20:06)
[2024-08-10] MEDS: Meclizine HCl 25 MG TABLET PO (14:32)
[2024-08-10 15:27] VITALS: BP 115/56; PULSE 71; RESP 17; TEMP 36.6; O2SAT 95
[2024-08-10 16:29] LABS: Glucose, Whole Blood 86 mg/dL (60-115)
[2024-08-10 19:59] VITALS: BP 147/69; PULSE 77
[2024-08-10] MEDS: Gabapentin 100 MG CAPSULE 200 MG PO (19:59)
[2024-08-10] MEDS: Atorvastatin Calcium 40 MG TABLET PO (19:59)
[2024-08-10 20:05] LABS: Glucose, Whole Blood 246 mg/dL (60-115)
[2024-08-10 23:43] VITALS: BP 130/63; PULSE 75; RESP 16; TEMP 36.5; O2SAT 94
--- NOTE | 2024-08-11 07:28 | P.DS_ITS ---
DS: Providers Provider Date of Service: 08/11/24 Date of admission: 08/03/24 19:40 Primary care physician: Juany Rodriguez MD Consults: 08/03/24 19:40 Consult to Nephrology Routine Consulting Provider: [facility] Reason for consultation: DENI on CKD DS: Diagnosis Discharge Diagnosis (1) Renal failure: Status: Acute (2) Volume overload: Status: Acute DS: Summary Hospital Course Hospital Course: History and physical as per admitting provider. This is a 78-year-old female with pertinent history of advanced CKD approaching ESRD, hypertension, mixed hyperlipidemia, mood disorder, insulin-dependent diabetes mellitus, gastroesophageal reflux disease, chronic pancreatic insufficiency, paroxysmal atrial fibrillation on Eliquis, pulmonary hypertension, congestive heart failure with preserved ejection fraction who was sent to the emergency department from pest control applicator's office for IV diuresis. History obtained with the help of director of student aid. Patient does have mild cognitive impairment and history obtained with the help of granddaughter at bedside. Patient has been following up with outpatient Nephrology and continues to have dyspnea which is worse with exertion. Also admits orthopnea. Her outpatient p.o. Lasix dosage increased but her symptoms continue. Also noted to have worsening of her creatinine and BUN. Patient was sent to the ER for IV diuresis and possible need for dialysis. No fever, chills, chest pain, palpitations, abdominal pain, changes in bowel habits. In the emergency department, BNP found to be elevated and patient was initiated on IV diuresis. Acute on chronic congestive heart failure with preserved ejection fraction . due to volume overload from worsening kidney disease. Treated with IV Lasix and dialysis. Continue oral Lasix and metolazone. Acute kidney injury now ESRD on dialysis s/p IV lasix. PermCath placed 08/05, HD 08/05, 08/06, 08/07, 08/09. outpatient dialysis chair at [facility] Hyperkalemia. Resolved after dialysis Hyponatremia Resolved thrombocytopenia. baseline Chronic normocytic anemia due to chronic kidney disease stable H&H Hypertension At baseline, On amlodipine 10 mg, hydralazine 100 mg b.i.d., metoprolol 50 mg b.i.d. and Viagra 20 mg t.i.d. for pulmonary hypertension. Had some episodes of low blood pressure and hydralazine and Viagra were held. Hydralazine is stopped, continue amlodipine, metoprolol and Viagra Mixed hyperlipidemia Continue Lipitor Neuropathy continue gabapentin paroxysmal atrial fibrillation normal sinus rhythm during hospitalization. Continue Eliquis and metoprolol Insulin-dependent diabetes mellitus with hyperglycemia: Continue home medications Gastroesophageal reflux disease: On PPI Chronic pancreatic insufficiency On enzyme supplementation Time Attestation Discharge Coordination Time (in mins): 35 Quality: Safe Use of Opioids Does Pt have an Active Cancer Diagnosis on the Problem List?: No Quality: Stroke Does the patient have a stroke diagnosis?: No Physical Exam Vital Signs: Vital Signs: Last Vital Signs Temp 97.7 F 08/10/24 23:43 Pulse 75 08/10/24 23:43 Resp 16 08/10/24 23:43 BP 130/63 08/10/24 23:43 Pulse Ox 94 08/10/24 23:43 O2 Del Method Room Air 08/10/24 23:43 O2 Flow Rate 2.0 08/06/24 15:51 BMI result Body Mass Index 32.2 Appearing in no acute distress head is normocephalic atraumatic eyes pupils are PERRLA sclera is anicteric mouth throat mucous membranes are intact and moist neck is supple no lymphadenopathy, no JVD noted lung sounds are clear to auscultation heart regular rate rhythm, clear S1, S2 positive bowel sounds, abdomen is soft, nontender neuro patient is alert x3, no focal deficits DS: Data Data Completed and Pending Labs on day of discharge: Laboratory Results - last 24 hr 08/10/24 08/10/24 08/10/24 07:24 07:36 11:10 Sodium 137 Potassium 3.9 D Chloride 97 Carbon Dioxide 26 Anion Gap 18 BUN 36 H Creatinine 3.77 H Estim Creat Clear Calc 11.3 Estimated GFR 12 POC Glucose 128 H 263 H Random Glucose 132 H Calcium 9.3 Phosphorus 5.1 H 08/10/24 08/10/24 16:22 20:01 Sodium Potassium Chloride Carbon Dioxide Anion Gap BUN Creatinine Estim Creat Clear Calc Estimated GFR POC Glucose 86 246 H Random Glucose Calcium Phosphorus Discharge Plan Discharge Anticipated Discharge Date/Time: 08/11/24 07:18 Patient Disposition: Home, Self-Care Discharge Diagnosis: Acute on chronic congestive heart failure with preserved ejection fraction DENI End-stage renal disease on dialysis Hyperkalemia Hyponatremia Thrombocytopenia Referrals: hvns [Other] - 1 Week Sergio Mccartney MD [Physician] - 1 Week Juany Rodriguez MD [Primary Care Provider] - 1 Week Discharge Medications: Continued furosemide 40 mg tablet 40 mg PO DAILY Qty: 90 3RF (DME) Vortex Holding Chamber Spacer See Rx Instructions .Route Qty: 1 0RF Rx Instructions: As directed Eliquis 5 mg tablet 5 mg PO BID Qty: 180 3RF amlodipine 10 mg tablet 10 mg PO DAILY Qty: 90 2RF albuterol sulfate 2.5 mg /3 mL (0.083 %) solution for nebulization 2.5 mg inhalation Q4H PRN (Reason: for wheezing) Qty: 180 0RF sildenafil (pulm.hypertension) 20 mg tablet 20 mg PO TID 90 Days Qty: 270 3RF Rx Instructions: administer doses at least 4-6 hours apart metoprolol tartrate 50 mg tablet 50 mg PO BID 90 Days Qty: 180 3RF polyethylene glycol 3350 [Miralax] 17 gram/dose powder 17 g PO BID PRN (Reason: constipation) 30 Days Qty: 1020 0RF PreserVision AREDS-2 250-90-40-1 mg Tablet,Chewable 1 tab PO BID metolazone 2.5 mg tablet 2.5 mg PO DAILY PRN (Reason: Dizziness) Creon 36,000-114,000- 180,000 unit capsule,delayed release(DR/EC) 2 cap PO DAILY Rx Instructions: administer with meals and/or snacks hydrocortisone 1 % ointment 1 appl topical DAILY PRN (Reason: itch) sodium polystyrene sulfonate Powder 15 g PO BEDTIME PRN (Reason: Hyperkalemia) Centrum Women 18-400 mg-mcg Tablet 1 tab PO DAILY Januvia 50 mg tablet 50 mg DAILY gabapentin 100 mg capsule 200 mg PO BEDTIME docusate sodium 100 mg capsule 100 mg PO BID PRN (Reason: constipation) alendronate 70 mg tablet 70 mg PO MO atorvastatin 40 mg tablet 40 mg PO BEDTIME simethicone 180 mg capsule 180 mg PO TID PRN (Reason: Constipation) ferrous sulfate 325 mg (65 mg iron) tablet 325 mg PO DAILY albuterol sulfate [Ventolin HFA] 90 mcg/actuation HFA aerosol inhaler 2 puff inhalation Q4H PRN (Reason: Wheezing/SOB) Trelegy Ellipta 100-62.5-25 mcg blister with device 1 inh inhalation DAILY 30 Days Qty: 60 11RF cholecalciferol (vitamin D3) 50 mcg (2,000 unit) capsule 50 mcg PO DAILY omega 7-yat-wsb-fish oil 300 mg (120 mg- 180mg)-1,000 mg capsule 1 cap PO DAILY sennosides [senna] 8.6 mg tablet 8.6 - 17.2 mg PO DAILY famotidine 20 mg tablet 20 mg PO DAILY (DME) nebulizers Misc See Rx Instructions .Route Rx Instructions: As directed ketorolac 0.5 % drops 1 drp ophthalmic (eye) DAILY PRN (Reason: Dry Eye(S)) cyanocobalamin (vitamin B-12) 1,000 mcg tablet 1,000 mcg PO DAILY meclizine 25 mg tablet 25 mg PO DAILY PRN (Reason: Dizziness) Artificial Tears(au-ftyi-agox) 1-0.2-0.2 % drops 1 drp ophthalmic (eye) DAILY PRN (Reason: Dry Eye(S)) ammonium lactate 12 % cream 1 appl topical DAILY calcium polycarbophil [Fiber (calcium polycarbophil)] 625 mg tablet 625 mg PO DAILY acetaminophen 325 mg tablet 650 mg PO DAILY PRN (Reason: Pain (Scale Score 1-3)) sucralfate 1 gram tablet 1 g PO DAILY (DME) FreeStyle Lite Strips Strip See Rx Instructions .ROUTE .MEDSUPPLY Qty: 10 Rx Instructions: As directed lansoprazole 30 mg capsule,delayed release(DR/EC) 30 mg PO DAILY Qty: 30 3RF insulin aspart U-100 [Novolog FlexPen U-100 Insulin] 100 unit/mL (3 mL) insulin pen See Protocol subcut .[facility] Protocol: Insulin Correction Scale Less than or equal to 110 ---- Give (units): 0 111 to 150 Give (units): 0 151 to 200 Give (units): 2 201 to 250 Give (units): 4 251 to 300 Give (units): 6 301 to 350 Give (units): 8 Greater than 350 Give (units): 10 Call MD if Blood Glucose > : 350 Discontinued hydralazine 100 mg tablet 100 mg PO BID Qty: 60 5RF Rx Instructions: dose change Discharge Orders: Discharge Order (Routine); Ordered 08/11/24 Ordered By: Iqra Johnson Diet: Advance to usual diet Activity on Discharge: As tolerated Stand Alone Forms: Patient Portal Discharge page Print Language: Tristanian Care Plan Goals: He will be having dialysis at [facility]. Your dialysis days will be Friday, and Friday. Your 1st dialysis session is scheduled for 08/12/2024 Health Concerns: Acute on chronic congestive heart failure with preserved ejection fraction DENI End-stage renal disease on dialysis Hyperkalemia Hyponatremia Thrombocytopenia Plan of Treatment: Follow-up with primary care provider as needed Take all medications as prescribed Assessment: See discharge summary
[2024-08-11 07:44] VITALS: BP 134/65; PULSE 68; RESP 16; TEMP 36.2; O2SAT 92
[2024-08-11 07:51] LABS: Glucose, Whole Blood 149 mg/dL (60-115)
[2024-08-11] MEDS: Fluticasone/Umeclidinium/Vilanterol 100/62.5/25 BLST.W.DEV 1 PUFF INHALE (08:02)
[2024-08-11 08:03] VITALS: PULSE 71; RESP 16; O2SAT 93
--- NOTE | 2024-08-11 08:10 | P.PNNP_ITS ---
Subjective Subjective Date of Service: 08/11/24 Interval history: 78 y/o female with HTN, DMII, pancreatic insufficiency, ANKIT, afib, CHF, CKD, pulmonary hypertension, asthma. Followed by Dr Mccartney, Nephrology, as outpatient, whom recommended admission due to advanced renal failure approaching ESRD had permcath placed 08/05 and recieved HD 08/05, 08/06, 08/07, 08/09 plan for HD today, then plan for HD outpatient at [facility] starting 08/12 pt reports her breathing is ok continues with ongoing bilateral leg pain, states from the compression devices that were on her legs denies nausea, vomiting denies pruritis denies tremors/abnormal movements denies abdominal pain, chest pain denies flank pain denies dysuria, reports she is voiding comfortably/easily denies other concerns Physical Exam 2 Vital Signs: Vital Signs: Last Vital Signs Temp 97.1 F 08/11/24 07:44 Pulse 71 08/11/24 08:03 Resp 16 08/11/24 08:03 BP 130/65 08/11/24 09:02 Pulse Ox 92 08/11/24 07:44 O2 Del Method Room Air 08/11/24 07:44 O2 Flow Rate 2.0 08/06/24 15:51 BMI result Body Mass Index 32.2 Const: Other: pt poor historian; discusses with her daughter at bedside who also provides history (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 General: no acute distress, alert and awake Orientation/consciousness: o riented to person, oriented to place and No oriented to time Resp: Effort & Inspection: normal respiratory effort, able to speak in complete sentences and no cough Auscultation: clear to auscultation bilaterally Cardio: Jugular venous distension: no JVD Rate: regular rate Rhythm: r egular rhythm Heart sounds: S1 normal heart sound present and S2 normal heart sound present GI: Palpation (GI): Soft to palpation and nontender : General: Yes no CVA tenderness Back/Spine/Pelvis: Back: no CVA tenderness Skin: Rashes: no rashes Neuro: General: oriented to person, oriented to place, No oriented to time and other (oriented vaguely to situation- states she is in hospital for her kidneys) Extrem: General: No edema Objective Data Labs 11/18/24 05:36 08/10/24 07:36 Labs: Laboratory Results - last 24 hr 08/10/24 08/10/24 08/10/24 11:10 16:22 20:01 POC Glucose 263 H 86 246 H 08/11/24 07:47 POC Glucose 149 H Procedures Date of Service Date of Service: 08/11/24 Assessment & Plan Assessment and plan (1) Renal failure: Status: Acute (2) Volume overload: Status: Acute (3) Shortness of breath: Status: Acute Plan ESRD on HD stable plan to receive HD today No uremic symptoms today H&H 11.5 and 35- 20,000 units of epoeitin administered 08/04 calcium normal at 9.3; 08/10 phos 5.1, PTH 08/07 207 blood pressures acceptable oliguric at present pt euvolemic on exam today right IJ permcath in place [facility]- pt has placement for 08/12 (will be Tu, , Sat HD) Continue to monitor blood pressures continue to avoid nephrotoxic substances will continue to follow Discussed with Dr Victoria Time Spent With Patient Time: Total time managing care of this patient today ____ minutes. Progress Note: Quality Stroke Does the patient have a stroke diagnosis?: No
[2024-08-11] MEDS: Cholecalciferol (Vitamin D3) 25 MCG TABLET 50 MCG PO (09:01)
[2024-08-11] MEDS: Cyanocobalamin (Vitamin B-12) 1,000 MCG TABLET 1000 MCG PO (09:01)
[2024-08-11] MEDS: 0.9 % Sodium Chloride Flush 3 ML SYRINGE IVFLUSH (09:01)
[2024-08-11 09:02] VITALS: BP 130/65
[2024-08-11] MEDS: calcium polycarbophiL TABLET 2 TAB PO (09:02)
[2024-08-11] MEDS: Sennosides 8.6 MG TABLET PO (09:02)
[2024-08-11] MEDS: Metoprolol Tartrate 50 MG TABLET PO (09:02)
[2024-08-11] MEDS: Lipase/Prot/Amylase 24/76/120K 1 CAP CAPSULE.DR 3 CAP PO (09:02)
[2024-08-11] MEDS: Sucralfate 1 GM TABLET PO (09:04)
[2024-08-11] MEDS: Apixaban 5 MG TABLET PO (09:04)
[2024-08-11] MEDS: Famotidine 20 MG TABLET PO (09:04)
--- NOTE | 2024-08-11 09:18 | W.MHC.F2F ---
Service Date Service Date: 08/11/24 Encounter Date of encounter: 08/11/24 Reasons for Services Signs and symptoms assessed: Acute on chronic congestive heart failure with preserved ejection fraction End-stage renal disease on dialysis Reason for mcfp: CV/CP assess and/or care Reason for physical therapy: home safety and mobility Homebound: Leaving the home is medically contraindicated at this time without the asist of a device and/or another person due th the listed conditions above and below. Reason homebound: weakness related to hospital stay Certification: Based on the above findings, I certify that this patient is confined to the home and needs intermittent mcfp care, physical therapy and/or speech therapy, or continues to need occupational therapy. The patient is under my care, and I have initiated the establishment of the plan of care. The patient will be followed by a physician who will periodically review the plan of care. Time Spent With Patient Time: Total time managing care of this patient today ____ minutes.
--- NOTE | 2024-08-13 17:49 | PC.NURSE ---
Pt c/o of general pain 4 out of 10 on 08/07/24, requested tylenol despite the pain level of 4.
== END 2024-08-11 10:41 | disposition home health service (06) | DRG 291 ==
LOC: HO.ED 19:25 → HO.EDOVER 19:51 → HO.S3 08-04 18:52
PROVIDERS: Hospitalist; Nurse Practitioner Family; Physician Assistant Medical; Physician Assistant Surgical; Registered Nurse Emergency; Admitting Provider Student in an Organized Health Care Education/Training Program; Emergency Provider Emergency Medicine; PCP Pediatrics; Visit Provider Nurse Practitioner Acute Care
DX: I13.2 Hypertensive heart and chronic kidney disease with heart failure and with stage 5 chronic kidney disease, or end stage renal disease (principal); I50.33 Acute on chronic diastolic (congestive) heart failure; N18.6 End stage renal disease; N17.9 Acute kidney failure, unspecified; E87.1 Hypo-osmolality and hyponatremia; E11.65 Type 2 diabetes mellitus with hyperglycemia; D63.1 Anemia in chronic kidney disease; E78.2 Mixed hyperlipidemia; E87.5 Hyperkalemia; I48.0 Paroxysmal atrial fibrillation; K21.9 Gastro-esophageal reflux disease without esophagitis; K86.89 Other specified diseases of pancreas; E11.40 Type 2 diabetes mellitus with diabetic neuropathy, unspecified; Z99.2 Dependence on renal dialysis; D69.6 Thrombocytopenia, unspecified; G47.33 Obstructive sleep apnea (adult) (pediatric); I27.20 Pulmonary hypertension, unspecified; F03.90 Unspecified dementia, unspecified severity, without behavioral disturbance, psychotic disturbance, mood disturbance, and anxiety; E11.22 Type 2 diabetes mellitus with diabetic chronic kidney disease; Z20.822 Contact with and (suspected) exposure to COVID-19; Z79.4 Long term (current) use of insulin; Z79.01 Long term (current) use of anticoagulants; Z79.899 Other long term (current) drug therapy
CPT/HCPCS: 0241U; 36415; 36558; 71046; 76937; 80048; 80053; 81003; 82947; 83735; 83880; 83970; 84100; 84484; 85025; 85027; 85610; 85730; 86704; 86706; 87340; 90999; 93005; 94640; 97162; 99212; 99285; C1750; C1769; J0885; J1644; J1650; J1940; J2405; J2597; J3010

== ENCOUNTER → 2024-08-03 11:13 | Outpatient (BNV) | payer OTHER, SELFPAY | PROVIDERS: PCP Pediatrics; Visit Provider Internal Medicine Cardiovascular Disease | DX: I49.9 Cardiac arrhythmia, unspecified (principal) | CPT/HCPCS: 93010 ==

== ENCOUNTER 2024-08-03 19:40 | Outpatient (BNV) | payer OTHER, SELFPAY | END 2024-08-05 15:40 | PROVIDERS: Admitting Provider Student in an Organized Health Care Education/Training Program; Emergency Provider Emergency Medicine; PCP Pediatrics; Visit Provider Physician Assistant Surgical | DX: N18.5 Chronic kidney disease, stage 5 (principal) | CPT/HCPCS: 36558; 76937 ==

== ENCOUNTER → 2024-08-03 19:40 | Outpatient (BNV) | payer OTHER, SELFPAY | PROVIDERS: Admitting Provider Student in an Organized Health Care Education/Training Program; Emergency Provider Emergency Medicine; PCP Pediatrics; Visit Provider Student in an Organized Health Care Education/Training Program | DX: N17.9 Acute kidney failure, unspecified (principal); N18.5 Chronic kidney disease, stage 5; E87.79 Other fluid overload | CPT/HCPCS: 99223; 99232; 99233; 99239; G0180 ==

== ENCOUNTER → 2024-08-03 19:40 | Outpatient (BNV) | payer OTHER, SELFPAY | PROVIDERS: Admitting Provider Student in an Organized Health Care Education/Training Program; Emergency Provider Emergency Medicine; PCP Pediatrics; Visit Provider Nurse Practitioner Family | DX: N17.9 Acute kidney failure, unspecified (principal); N18.5 Chronic kidney disease, stage 5; E87.79 Other fluid overload; R06.02 Shortness of breath | CPT/HCPCS: 90935; 99222; 99232 ==

== ENCOUNTER → 2024-10-23 | Outpatient (BNV) | payer OTHER, SELFPAY | PROVIDERS: PCP Pediatrics; Visit Provider Internal Medicine Hypertension Specialist | DX: N18.6 End stage renal disease (principal) | CPT/HCPCS: 90961 ==

== ENCOUNTER → 2024-11-20 | Outpatient (BNV) | payer OTHER, SELFPAY | PROVIDERS: PCP Pediatrics; Visit Provider Internal Medicine Hypertension Specialist | DX: N18.6 End stage renal disease (principal) | CPT/HCPCS: 90961 ==

== ENCOUNTER 2024-11-30 12:35 | Outpatient (REF) | payer OTHER, SELFPAY ==
--- OUTSIDE RECORDS SUMMARY | 2024-11-30 15:10 | XMS_ITS | Data Portability ---
Author Organization [employer] Address [address] [place] [address] Care Team Providers Care Director Biology Name Role Phone [facility] Referring Provider [phone] [facility] Referring Provider Assessment Encounter Date Assessment Date Assessment LastModified by Organization Details LastModified Time 06/14/2022 06/14/2022 I have reviewed and agree with the Assessment and Plan as documented by the Escrow Agent. I provided real -time medical direction via phone for this encounter, and was available for additional phone based assistance as needed. Patient given the opportunity to ask questions. D/w patient & family the use of prednisone- BS already sl elevated 4 hrs post prandial- She states BS goes to high 300's on prednisone. Is no longer on insulin - is only on metformin and glipizide. No wheezing s/p 1 neb- will try increased nebs prior to initiation of po prednisone. Is also on Trelegy ellipta already- pat instructed not to use that as rescue inhaler- only once per day. Pat could benefit from having compression stockings ordered by care team! advise to limit salt intake/ elevate legs. She has f/u appt w/ pulmonology 07/12- advised important to keep appt. Also, needs to call pcp on Friday as this is Fri evening. Further advised if develops CP/ worsening SOB or cyanosis starts/ hi fever or syncope to call 911. Daughter and grand daughter present. patient verbalized understanding Pat and family state they have not gotten results of CTA chest performed 06/06/22- I advised that if it was positive she should have heard already. If CP could pls f/u with patient re results( as I do not have access to them), it would reassure her. [email or web address] Not available 06/14/2022 18:40:48 Plan of Treatment Reminders Order Date Submit Date Provider Last Modified By Organization Details Last Modified Time Details Appointments None recorded. Lab glucose, fingerstick , blood 2021 [email or web address] 0 [facility], [address] [place] [address], [id number], 17:51:12 rapid SARS CoV 2 Ag, QL IA, respiratory specimen 2021 [email or web address] 0 [facility], [address] [place] [address], [phone], 17:51:12 Referral None recorded. Procedures None recorded. Surgeries None recorded. Imaging None recorded. Medication Orders ipratropium 0.5 mg-albutero l 3 mg (2.5 mg base)/3 mL nebulizatio n soln 2021 [email or web address] Not available 17:21:20 albuterol sulfate 2.5 mg/3 mL (0.083 %) solution for nebulizatio n 2021 [facility], [address], [place], [place], [phone], 18:01:10 Patient TargetsNo targets recorded. Patient InstructionsNo instructions recorded. Reason for Referral None Reported. Results Created Date Observation Date Name Description Value Unit Range Abnormal Flag Note LastModifiedBy Organization Detail LastModifiedTime 06/14/2006/14/2022 gluco senikko rstic k, blood Blood Glucose: mg/dl 249 Not Available [facility] [address] [place] [address], [phone], 06/14/2022 17:29:35 06/14/20 22 06/14/2022 rapid SARS CoV 2 Ag, QL IA, respi rator y speci men rapid SARS CoV 2 Ag, QL IA, respiratory specimen negati ve Not Available Main - [facility] ed [address] [place] [address], [phone], 06/14/2022 17:27:03 Result Notes None recorded. Medical Equipment None Reported. Allergies Allergen ID Allergen Name Allergen Category Reaction Reaction Severity Criticality Documentation Date Start Date Code Code System Note Provider Name and Address Organization Details Recorded Time 1097 Product containin g penicilli n (product) medicatio n Not available Not available Not available 06/14/2022 91301 8001 SNOMED Not Available [facility] - production 4 03:49:25 Medications Name Sig Start Date Stop Date Status Note LastModified by Organization Details LastModified Time pulmoneb comp/neb syst 3655lt USE DIRECTED EVERY 6 HOURS NEEDED active Not Available Not Available No t Available furosemide 40 mg tablet TAKE ONE TABLET DAILY active Not Available Not Available No t Available atorvastatin 40 mg tablet TAKE ONE TABLET AT BEDTIME active Not Available Not Available No t Available acetaminophe n 325 mg tablet TAKE TWO TABLETS EVERY 6 HOURS NEEDED active Not Available Not Available No t Available ipratropium 0.5 mg-albuterol 3 mg (2.5 mg base)/3 mL nebulization soln 1 uni dose now for wheezing 2021 active Not Available Not Available Not Avai lable albuterol sulfate 2.5 mg/3 mL (0.083 %) solution for nebulization INHALE ONE AMPULE USING A NEBULIZER FOUR TIMES DAILY. MAY INCREASE TO SIX TIMES DAILY (EVERY 4 HOURS) NEEDED FOR WHEEZING active Not Available Not Available No t Available glipizide 10 mg tablet TAKE ONE TABLET BY MOUTH TWICE DAILY WITH FOOD. active Not Available Not Available No t Available prednisone 20 mg tablet TAKE ONE TABLET BY MOUTH TWICE DAILY FOR 5 DAYS active Not Available Not Available No t Available alendronate 70 mg tablet TAKE 1 TABLET ONCE A WEEK WITH 6 TO 8 OZ OF WATER 30 MINUTES BEFORE FIRST FOOD OF THE DAY. DO NOT LIE DOWN FOR 30 MINUTES. active Not Available Not Available No t Available hydralazine 25 mg tablet TAKE ONE TABLET BY MOUTH TWICE DAILY. active Not Available Not Available No t Available Deep Sea Nasal 0.65 % spray aerosol USE NEEDED FOR sequedad nasal active Not Available Not Available No t Available pantoprazole 40 mg tablet,delay ed release TAKE ONE TABLET DAILY active Not Available Not Available No t Available metformin 1,000 mg tablet TAKE ONE TABLET BY MOUTH TWICE DAILY. active Not Available Not Available No t Available candesartan 16 mg tablet TAKE TABLET BY MOUTH EVERY DAY active Not Available Not Available No t Available metoprolol tartrate 50 mg tablet TAKE ONE TABLET TWICE DAILY active Not Available Not Available Not Available docusate sodium 100 mg capsule TAKE ONE CAPSULE TWICE DAILY NEEDED FOR CONSTIPATIO N active Not Available Not Available No t Available hydralazine 50 mg tablet TAKE ONE TABLET BY MOUTH THREE TIMES DAILY active Not Available Not Available Not Available gabapentin 100 mg capsule TAKE ONE CAPSULE BY MOUTH EVERY EVENING active Not Available Not Available No t Available Ventolin HFA 90 mcg/actuatio n aerosol inhaler INHALE TWO PUFFS EVERY 4 HOURS NEEDED active Not Available Not Available No t Available Gas Relief (simethicone ) 180 mg capsule TAKE ONE CAPSULE BY MOUTH THREE TIMES DAILY WITH MEALS NEEDED FOR hinchazon active Not Available Not Available No t Available duloxetine 60 mg capsule,chinyere yed release TAKE ONE CAPSULE DAILY active Not Available Not Available No t Available Flovent HFA 110 mcg/actuatio n aerosol inhaler INHALE TWO PUFFS TWICE DAILY. RINSE MOUTH AFTER USE active Not Available Not Available No t Available Flovent HFA 220 mcg/actuatio n aerosol inhaler INHALE TWO PUFFS BY MOUTH TWICE DAILY active Not Available Not Available No t Available sildenafil (pulmonary hypertension ) 20 mg tablet TAKE ONE TABLET THREE TIMES DAILY, TAKE DOSES FOUR TO SIX HOURS APART active Not Available Not Available Not Available Fish Oil 340 mg-1,000 mg capsule TAKE ONE CAPSULE TWICE DAILY active Not Available Not Available Not Available FreeStyle Lite Strips TEST BLOOD SUGAR THREE TIMES DAILY active Not Available Not Available Not Available FeroSul 325 mg (65 mg iron) tablet TAKE ONE TABLET BY MOUTH THREE TIMES DAILY active Not Available Not Available Not Available cholecalcife rol (vitamin D3) 50 mcg (2,000 unit) capsule TAKE ONE CAPSULE BY MOUTH ONCE DAILY active Not Available Not Available No t Available [facility] spacer USE DIRECTED active Not Available Not Available No t Available Eliquis 5 mg tablet TAKE ONE TABLET TWICE DAILY active Not Available Not Available Not Available Trelegy Ellipta 100 mcg-62.5 mcg-25 mcg powder for inhalation INHALE ONE PUFF DAILY active Not Available Not Available N ot Available omega-3 300 mg-dha 120 mg-epa 180 mg-fish oil 1,000 mg capsule TAKE ONE CAPSULE TWICE DAILY active Not Available Not Available Not Available Vitals Date Recorded Oxygen saturation Oxygen saturation in Arterial blood by Pulse oximetry Respiratory rate Body temperature Heart rate Body weight Body temperature Heart rate Respiratory rate Oxygen saturation Oxygen saturation in Arterial blood by Pulse oximetry Systolic blood pressure Diastolic blood pressure Systolic blood pressure Diastolic blood pressure Provider Name and Address Organization Details Last Updated DateTime 2 95 % 95 % 22 /min 98.3 [degF] 85 /min 05270.3 36 g 98.3 [degF] 85 /min 22 /min 95 % 95 % 150 mm[Hg] 79 mm[Hg] 150 mm[Hg] 79 mm[Hg] Not Available [facility] - production 2 18:41:26 Date Recorded Body weight Provider Name an d Address Organization Details Last Updated DateTime 06/14/2022 87776.63 g Aurelia Roberts [address] [place] [address],[address], [place], [address], [place] - [facility] 06/14/2022 17:19:02 Social History None recorded. Functional Status None recorded. Mental Status None recorded. Family History Nothing Reported. Medical History No medical history recorded. Gynecological HistoryNo gynecological history recorded. Obstetrics History GPAL:G 0 P 0 0 0 0 Past Encounters Encounter ID Performer Location Encounter Start Date Encounter Closed Date Diagnosis/Indication Diagnosis SNOMED-CT Code Diagnosis ICD10 Code Diagnosis Note [id number] Leanne Giron MD [facility] [address] [place] [phone] 06/14/2022 17:14:21 06/24/2022 13:48:28 Acute exacerbation of chronic obstructive pulmonary disease 542832330 J44.1 increase nebs to 4 x per day may go as high as q 4 hr- if needs more consider ER Type 2 melida betes mellitus 86743300 E11.9 Health Concerns Section Related Observation LastModified by Organization Detai ls LastModified Time None Recorded Concern Status LastModified by Organization Details LastModified Time None Recorded Advance Directives Directive None Recorded Payers Encounter Date Sequence Insurance Name Policy Number Policy Burton Covered Member ID Burton Member ID Guarantor Name 06/14/2022 1 [facility] - DOS PRIOR TO 2022 - DUAL ELIGIBLE (MEDICARE REPLACEMENT/ADV ANTAGE - HMO) Belen Stone [id number] Belen Stone Notes Date Note Type Note Provider Name and Address Organization Details Recorded Time 06/14/2022 text/html HPI: Patient daughter called in reporting pt having some wheezing, SOB on exertion and cough. Also reports some abdominal pain. Pt using albuterol with nebulizer with mild relief. No fever. No COVID-19 testing. No appts left in office. Agrees to [facility] referral for assessment. .................. .................. .................. .................. .................. .................. .................. ............... CRC Nursing Assessment: Comments: CRC RN DID NOT NEED FURTHER INFO SEGMD: Pat reports 1 yr hx wheezing- GALAVIZ-nothing acute/ dry cough- saw pcp and then Urgent Care about 3 months ago told to increase mdi and neb- only using 2 x per day. Denies fever/ chills/ productive cough/sore throat or CP. Has chronic LE edema unchanged from baseline. Has pmh: fibromyalgia/ DM2- off lantus/ HTN/ COPD. Saw Urology to day who noticed patient was wheezy- told her to call pcp- she did- they had no appts so [facility] sent to home. Pat started on sildenafil by cardiology 06/04/22. Saw Pulmonary 06/05- had CT A chest to rule out PE- has not heard results........... .................. .................. .................. .................. .................. .................. .................. ..... Escrow Agent Note: Sent to evaluate pt c/o wheeze+sob. Upon arrival, family states that pt was seen by urologist today and found to have wheezing, dry cough, and GALAVIZ. Urologist told family to call PCP office to discuss. PCP office did not have appts tonight and zelda was called. Family states that this has been pt's baseline x1 year now and is no worse than normal. Lung sounds are tight with insp/exp wheezing, ambulatory sp02 drops to 93% from 95% at rest. Pt has +GALAVIZ that resolves with rest. Last neb x3 hours ago and pt takes BID nebs. BGL 249. Consulted [facility] who ordered duoneb and rapid covid test. Rapid covid -, reassessment of lung sounds post neb are clear with better air movement. [facility] orders nebs to be increased to QID, up to Q4 PRN. Pt has pulm appt next month that she was encouraged to keep. Pt to call PCP on Friday. Went over red flags and there were no further questions or concerns at this time. .................. .................. .................. .................. .................. .................. .................. ............... Disposition: Fulfilled Leanne Giron MD [address] [facility],[address], [place], [phone], [facility] 06/14/2022 23:24:03 OBGyn Episode No OBEpisode recorded.
--- OUTSIDE RECORDS SUMMARY | 2024-11-30 15:10 | XMS_ITS | Encounter Summary ---
Author Organization [employer] Address [address] [place] [address] Care Team Providers Care Coal Washer Name Role Phone Juany Rodriguez MD Primary Care Provider [phone] Reason for Visit * Reason Onset Date Comments Medication Question 05/28/2024 Encounter Details Date Type Department Care Team ([facility] st Contact Info) Description 05/28/[address] [facility] MEDICINE [address] [place] [address] Juany Rodriguez MD [address] [facility] [place] [phone] Medication Question Social History Tobacco Use Types Packs/Day Years Used Date Smoking Tobacco: Never Passive Smoke Exposure: Never Smokeless Tobacco: Never Alcohol Use Standard Drinks/Week Comments Never 0 (1 standard drink = 0.6 oz pur e alcohol) Housing Stability Answer Date Recorded What is your housing situation today? I have tiago alicea 12/31/[address] you li ve. Do you have problems with any of the following? None of the above 12/31/2023 Food Insecurity Answer Date Recorded Within the past 12 months, y ou worried that your food would run out before you got money to buy more: Never True 12/31/2023 Within the past 12 months,th e food you bought just didn't last and you didn't have enough money to get more: Never True 06/2024 Transportation Answer Date Recorded In the past 12 months, has l ack of transportation kept you from medical appts, meetings, work or from getting things needed for daily living? No 12/31/2023 Utilities Answer Date Recorded In the past 12 months, has t he electric, gas, oil or water company threatened to shut off services in your home? No 12/31/2023 Comments Unknown Sex and Gender Information Value Date Recorded Sex Assigned at Female 07/22/2022 10:32 AM EDT Legal Sex Female 10:32 AM EDT Gender Identity Female 07/22/2022 10:32 AM EDT Sexual Orientation Straight 03/19/2024 3: 38 PM EDT documented as of this encounter Miscellaneous Notes * Telephone Encounter - Tc Johnson - 05/31/2024 2:35 PM EDT Tc from daughter calling in regards to message prior stating they're all set seems to be miscommunication. * Telephone Encounter - Almaz Rodriguez RN - 05/31/2024 2:14 PM EDT Telephone call returned to patient in regards to below message. Pts daughter stating it is on a sliding scale so she gives it based on the blood sugar. She tests 4 times a day so based on the slidingscale she injects novolog 4 times a day. Patient's daughter would like refill as patient is unable to black pickler 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 Patient verbalized understanding and denied having any further questions or concerns at this time. * Telephone Encounter - Quinn Lovelace - 05/28/2024 3:49 PM EDT TC from daughter states pt is out of insulin aspart FlexPen (NovoLOG) 100 UNIT/ML pen and unable toget a refill due to being too early for insurance to cover . Due on 06/18. Before I can ask how many units patient is utilizing / caller disconnected. documented in this encounter Plan of Treatment Upcoming Encounters Date Type Department Care Team (Late st Contact Info) Description 03/09/2025 11:00 AM EDT Office Visit [facility] [address] [place] [address] Juany Rodriguez MD [address] [place] [address] documented as of this encounter Visit Diagnoses Not on filedocumented in this encounter Care Teams Coal Washer Relationship Specialty Start Date End Date Juany Rodriguez MD [address] [place] [address] PCP - General Family Medicine 09/01/17 Dirk DENNISON 08/13/24 documented as of this encounter
--- OUTSIDE RECORDS SUMMARY | 2024-11-30 15:10 | XMS_ITS | Encounter Summary ---
Author Organization [employer] Address [address] [facility] [address] [place] [address] Care Team Providers Care Curtains And Draperies Salesperson Name Role Phone Juany Rodriguez MD Primary Care Provider [phone] Reason for Visit * Reason Comments Med Refill Encounter Details Date Type Department Care Team ([facility] st Contact Info) Description 11/29/2024 Refill [facility] [address] [facility] [place], [place] [phone] Juany Rodriguez MD [address] [place], [place] [phone] Social History Tobacco Use Types Packs/Day Years Used Date Smoking Tobacco: Never Passive Smoke Exposure: Never Smokeless Tobacco: Never Alcohol Use Standard Drinks/Week Comments Never 0 (1 standard drink = 0.6 oz pur e alcohol) Depression Answer Date Recorded Patient Health Questionnaire-9 Score 8 11/30/2024 Patient Health Questionnaire-9 Score 8 11/30/2024 Last PHQ-9: Questionnaire Data Not on file 0 11/30/2024 Housing Stability Answer Date Recorded What is [...] off services in your home? No 12/31/2023 Depression Answer Date Recorded Patient Health Questionnaire-2 Score 4 11/30/2024 Comments Unknown Sex and Gender Information Value Date Recorded Sex Assigned at Female 07/22/2022 10:32 AM EDT Legal Sex Female 10:32 AM EDT Gender Identity Female 07/22/2022 10:32 AM EDT Sexual Orientation Straight 03/19/2024 3: 38 PM EDT documented as of this encounter Plan of Treatment Upcoming Encounters Date Type Department Care Team (Late st Contact Info) Description 03/09/2025 11:00 AM EDT Office Visit [facility] MED & PEDS [address] [place] [address] Juany Rodriguez MD [address] [place] [address] documented as of this encounter Visit Diagnoses Not on filedocumented in this encounter Care Teams Curtains And Draperies Salesperson Relationship Specialty Start Date End Date Juany Rodriguez MD [address] [place] [address] PCP - General Family Medicine 09/01/17 Dirk DENNISON 08/13/24 documented as of this encounter
--- OUTSIDE RECORDS SUMMARY | 2024-11-30 15:10 | XMS_ITS | Encounter Summary ---
Author Organization [employer] Address [address] [facility] 7t [place] [address] Care Team Providers Care Documentation Spec Name Role Phone Juany Rodriguez MD Primary Care Provider [phone] Encounter Details Date Type Department Care Team (Latest Contact Info) Description 05/07/2022 Abstract [facility] CONVERSIONS Dental, Provider, DDS Social History Tobacco Use Types Packs/Day Years Used Date Smoking Tobacco: Never Assessed Comments Unknown Sex and Gender Information Value [...] Description 03/09/2025 11:00 AM EDT Office Visit [facility] CHC MED & PEDS [address] [place] [address] Juany Rodriguez MD [address] [place] [address] documented as of this encounter Visit Diagnoses Not on filedocumented in this encounter Care Teams Documentation Spec Relationship Specialty Start Date End Date Juany Rodriguez MD [address] [place] [address] PCP - General Family Medicine 09/01/17 Dirk DENNISON 08/13/24 documented as of this encounter
--- OUTSIDE RECORDS SUMMARY | 2024-11-30 15:10 | XMS_ITS | Encounter Summary ---
Author Organization [employer] Address [address] [facility] 7t [place] [address] Care Team Providers Care Staff Services Manager Name Role Phone Juany Rodriguez MD Primary Care Provider [phone] Reason for Referral * Medications - Closed Specialty Diagnoses / Procedures Referred By Contac t Referred To Contact Diagnoses Type 2 diabetes mellitus with hyperglycemia, with long-term current use of insulin (CMS/HCC) Rashmi Marquez MD [address] [place] [address] Phone: tel: fax: Referral ID Status Reason Start Date Expiration Date Visits Re quested Visits Authorized [id number] Closed 1 1 Encounter Details Date Type Department Care Team (Late st Contact Info) Description 05/14/2024 Orders Only [facility] [address] [place] [phone] Rashmi Marquez MD [address] [place] [address] Type 2 diabetes mellitus with hyperglycemia, with long-term current use of insulin (CMS/HCC) (Primary Dx) Social History Tobacco Use Types Packs/Day Years [...] Description 03/09/2025 11:00 AM EDT Office Visit [facility] CHC MED & PEDS [address] [place] [address] Juany Rodriguez MD [address] [place] [address] documented as of this encounter Visit Diagnoses Diagnosis Type 2 diabetes mellitus with hyperglycemia, with long-term current use of insulin ([facility])- Primary documented in this encounter Care Teams Staff Services Manager Relationship Specialty Start Date End Date Juany Rodriguez MD [address] [place] [address] PCP - General Family Medicine 09/01/17 Dirk DENNISON 08/13/24 documented as of this encounter
--- OUTSIDE RECORDS SUMMARY | 2024-11-30 15:10 | XMS_ITS | Encounter Summary ---
Author Organization [employer] Address [address] [facility] 7[address] [place] [address] Care Team Providers Care Mud Jack Nozzleman Name Role Phone Juany Rodriguez MD Primary Care Provider [phone] Reason for Visit * Reason Comments Med Refill Encounter Details Date Type Department Care Team (Late st Contact Info) Description 02/03/2023 Refill [facility] MED & PEDS [address] [place], [place] [phone] Juany Rodriguez MD [address] [place], [place] [phone] Severe pulmonary hypertension (CMS/HCC) Social History Tobacco Use Types Packs/Day Years [...] Encounters Date Type Department Care Team (Late Contact Info) Description 03/09/2025 11:00 AM EDT Office Visit [facility] MED & PEDS [address] [place], [place] [phone] Juany Rodriguez MD [address] [place], [place] [phone] documented as of this encounter Visit Diagnoses Diagnosis Severe pulmonary hypertension (CMS/HCC) documented in this encounter Care Teams Mud Jack Nozzleman Relationship Specialty Start Date End Date Juany Rodriguez MD [address] [place] [address] PCP - General Family Medicine 09/01/17 Dirk DENNISON 08/13/24 documented as of this encounter
--- OUTSIDE RECORDS SUMMARY | 2024-11-30 15:10 | XMS_ITS | Encounter Summary ---
Author Organization [employer] Address [address] [facility] [address] 7[address] [place] [address] Care Team Providers Care Special Events Director Name Role Phone Juany Rodriguez MD Primary Care Provider [phone] Reason for Visit * Reason Onset Date Comments Appointment Request 07/06/2024 Encounter Details Date Type Department Care Team ([facility] st Contact Info) Description 07/06/2024 Telephone [facility] MEDICINE [address] [place] [address] Juany Rodriguez MD [address] [facility] [place] [phone] Appointment Request Social History Tobacco Use Types Packs/Day Years [...] encounter Miscellaneous Notes * Telephone Encounter - Marissa Echevarria RN - 07/06/2024 3:20 PM EDT Triage call with [employer] hand cooper helper jaimie Carrasco. Pt daughter had called requesting rescheduled apt . Pt had loose stools and wasn't able to leave house. New apt scheduled for 07/09/24 @ 845am with Dr. Clifford. Eufemiax bilateral pedal edema/hand swelling. [facility] was offered for today but, declined. * Telephone Encounter - Tc Johnson - 07/06/2024 2:45 PM EDT Tc from Daughter stating pt was unable to make it to today's visit and is requesting to reschedule. documented in this encounter Plan of Treatment Upcoming Encounters Date Type Department Care Team (Late st Contact Info) Description 03/09/2025 11:00 AM EDT Office Visit [facility] CHC MED & PEDS [address] [place] [address] Juany Rodriguez MD [address] [place] [address] documented as of this encounter Visit Diagnoses Not on filedocumented in this encounter Care Teams Special Events Director Relationship Specialty Start Date End Date Juany Rodriguez MD [address] [place] [address] PCP - General Family Medicine 09/01/17 Dirk DENNISON 08/13/24 documented as of this encounter
--- OUTSIDE RECORDS SUMMARY | 2024-11-30 15:10 | XMS_ITS | Clinical Summary ---
Author Organization [facility] Address [address] [place] [address] Care Team Providers Care Casting House Laborer Name Role Phone Unavailable Primary Care Provider Unavailabl e Allergies Active Allergy Reactions Criticality Noted Date Comments Aspirin Hives 02/13/2023 Penicillins Hives,Other (See Comments),Rash Low 03/2017 Medications Medication Sig Dispensed Refills Start Date End Date Status acetaminophen (TYLENOL) 325 MG tablet TAKE ONE TABLET EVERY 8 HOURS NEEDED FOR PAIN 0 01/07/2023 Active albuterol (PROVENTIL) (2.5 MG/3ML) 0.083% nebulizer solution INHALE ONE AMPULE USING A NEBULIZER EVERY 4 HOURS NEEDED 0 02/03/2023 Active Ventolin HFA 108 (90 Base) MCG/ACT inhaler INHALE TWO PUFFS EVERY 4 HOURS NEEDED 0 01/30/2023 Active alendronate (FOSAMAX) tablet 70 mg TAKE 1 TABLET ONCE A WEEK WITH 6 TO 8 OZ OF WATER 30 MINUTES BEFORE FIRST FOOD OF THE DAY. DO NOT LIE DOWN FOR 30 MINUTES. 0 01/30/2023 Active amLODIPine (NORVASC) tablet 10 mg take 1 Tablet by Oral route once 0 02/07/2020 Active apixaban (ELIQUIS) 5 MG TABS tablet take 1 tablet by oral route 2 times every day 0 10/26/2019 Active atorvastatin (LIPITOR) tablet 40 mg Take 1 tablet (40 mg total) by mouth every night at bedtime. 0 01/30/2023 Active candesartan (ATACAND) 16 MG tablet Take 1 tablet (16 mg total) by mouth. 0 03/13/2021 Active Cholecalciferol 50 MCG (2000 UT) TABS Take 1 tablet by mouth daily. 0 01/28/2020 Active vitamin B-12 (CYANOCOBALAMIN) tablet 1000 mcg Take 1 tablet (1,000 mcg total) by mouth daily. 0 01/30/2023 Active cycloSPORINE (RESTASIS) 0.05 % ophthalmic emulsion instill 1 drop by ophthalmic route every 12 hours into affected eye(s) 0 11/23/2019 Active dexlansoprazole (DEXILANT) 60 MG capsule Take 1 capsule (60 mg total) by mouth. 0 Active docusate sodium (COLACE) 100 MG capsule TAKE ONE CAPSULE TWICE DAILY NEEDED FOR CONSTIPATION 0 01/30/2023 Active DULoxetine (CYMBALTA) DR capsule 60 mg Take 1 capsule (60 mg total) by mouth daily. 0 01/30/2023 Active FeroSul 325 (65 Fe) MG tablet TAKE ONE TABLET THREE TIMES DAILY 0 11/18/2022 Active fluticasone (Flovent HFA) 220 MCG/ACT inhaler Inhale 2 puffs into the lungs. 0 01/29/2023 Active Trelegy Ellipta 100-62.5-25 MCG/ACT AEPB INHALE ONE PUFF EVERY MORNING 0 01/30/2023 Active furosemide (LASIX) 40 MG tablet Take 1 tablet (40 mg total) by mouth every morning. 0 02/05/2023 Active gabapentin (NEURONTIN) 100 MG capsule 0 02/12/2023 Active Artificial Tears 0.2-0.2-1 % SOLN ophthalmic soln PLACE ONE DROP IN EACH EYE TWICE DAILY 0 12/19/2022 Active hydrALAZINE (APRESOLINE) 50 MG tablet 0 02/11/2023 Active metFORMIN (GLUCOPHAGE) tablet 1000 mg take 1 Tablet by Oral route 2 times every day 0 08/06/2017 Active metoprolol tartrate (LOPRESSOR) 50 MG tablet TAKE ONE TABLET TWICE DAILY 0 01/30/2023 Active Multiple Vitamins-Minerals (PreserVision AREDS 2) CAPS Take 1 capsule by mouth 2 (two) times a day. 0 12/19/2022 Active Hughson-3 Fatty Acids (Fish Oil) 1000 MG CAPS Take 1 capsule by mouth 2 (two) times a day. 0 01/30/2023 Active pantoprazole (PROTONIX) 40 MG tablet 0 02/12/2023 Active senna (SENOKOT) 8.6 MG TABS tablet TAKE TWO TABLETS DAILY NEEDED FOR CONSTIPATION 0 01/30/2023 Active sildenafil (REVATIO) 20 MG tablet TAKE ONE TABLET THREE TIMES DAILY, TAKE DOSES FOUR TO SIX HOURS APART 0 01/30/2023 Active Simethicone Ultra Strength 180 MG capsule TAKE TWO CAPSULES THREE TIMES DAILY 0 01/30/2023 Active Januvia 25 MG tablet Take 1 tablet (25 mg total) by mouth every morning. 0 01/30/2023 Active sucralfate (CARAFATE) 1 GM/10ML suspension TAKE 10 ML BY MOUTH EVERY SIX HOURS 0 11/19/2022 Active Active Problems Problem Noted Date Diagnosed Date Anemia 02/12/2023 Social History Tobacco Use Types Packs/Day Years Used Date Smoking Tobacco: Never Assessed Sex and Gender Information Value Date Recorded Sex Assigned at Female 02/07/2023 10:02 AM EDT Gender Identity Not on file Sexual Orientation Not on file Job Start Date Occupation Industry Not on file Not on file Not on file Last Filed Vital Signs Vital Sign Reading Time Taken Comments Blood Pressure 170/61 02/13/2023 3:35 PM EDT Pulse 67 02/13/2023 3:35 PM EDT Temperature 36.2 ??C (97.2 ??F) 02/13/2023 2:19 PM ED T Respiratory Rate - - Oxygen Saturation 100% 02/13/2023 3:35 PM EDT Inhaled Oxygen Concentration - - Weight - - Height - - Body Mass Index - - Plan of Treatment Health Maintenance Due Date Last Done Comments Hepatitis C Screening 1944 COVID-19 Vaccine (#1) 06/17/1945 Depression Screening 1956 Preventative Health Evaluation 1962 DTap / Tdap / Td (1 - Tdap) 12/16/1963 Shingrix-Zoster Vaccine (1 o f 2) 1994 Fall Risk Assessment 2009 Osteoporosis Screening (DEXA Scan) 2009 Pneumococcal Vaccine (2 of 2 - PPSV23 or PCV20) 11/13/2019 11/13/2018 RSV Adult > 60+ Yrs or (1 - 1-dose 75+ series) 12/16/2019 Influenza Vaccine (#1) 2024 07/22/2022 Hepatitis B Vaccines Completed 05/30/2022, 01/02/2022, 12/05/2021 RSV Ped < 20 months Aged Out No longe r eligible based on patient's age to complete this topic
--- OUTSIDE RECORDS SUMMARY | 2024-11-30 15:10 | XMS_ITS | Encounter Summary ---
Author Organization [email or web address] Address [address] [facility] 7t [place] [address] Care Team Providers Care Case Managers Name Role Phone Juany Rodriguez MD Primary Care Provider Reason for Visit * Reason Comments Med Refill Encounter Details Date Type Department Care Team ([facility] st Contact Info) Description 11/01/2024 Refill [facility] CHC MED & PEDS [address] [place], [place] [phone] Juany Rodriguez MD [address] [place], [place] [phone] Social History Tobacco Use Types Packs/Day Years [...] Description 03/09/2025 11:00 AM EDT Office Visit [facility] MED & PEDS [address] [place] [address] Juany Rodriguez MD [address] [place] [address] documented as of this encounter Visit Diagnoses Not on filedocumented in this encounter Care Teams Case Managers Relationship Specialty Start Date End Date Juany Rodriguez MD [address] [place] [address] PCP - General Family Medicine 09/01/17 Dirk DENNISON 08/13/24 documented as of this encounter
--- OUTSIDE RECORDS SUMMARY | 2024-11-30 15:10 | XMS_ITS | Encounter Summary ---
Author Organization [employer] Address [address] [facility] 7t [place] [address] Care Team Providers Care Table Operator Name Role Phone Juany Rodriguez MD Primary Care Provider [phone] Encounter Details Date Type Department Care Team (Late st Contact Info) Description 03/27/[address] [facility] CHC MED & PEDS [address] [facility] [place] [phone] Juany Rodriguez MD [address] [place], [place] [phone] Social History Tobacco Use Types Packs/Day Years Used Date Smoking Tobacco: Never Assessed Comments Unknown Sex and Gender Information Value Date Recorded Sex Assigned at Female 07/22/2022 10:32 AM EDT Legal Sex Female 10:32 AM EDT Gender Identity Female 07/22/2022 10:32 AM EDT Sexual Orientation Straight 03/19/2024 3: 38 PM EDT COVID-19 Exposure Response Date Recorded In the last 10 days, have yo u been in contact with someone who was confirmed or suspected to have Coronavirus/COVID-19? No / Unsure 03/27/2023 2:05 PM EDT documented as of this encounter Plan of Treatment Upcoming Encounters Date Type Department Care Team (Late st Contact Info) Description 03/09/2025 11:00 AM EDT Office Visit [facility] MED & PEDS [address] [place], [place] [phone] Juany Rodriguez MD [address] [place], [place] [phone] documented as of this encounter Visit Diagnoses Not on filedocumented in this encounter Care Teams Table Operator Relationship Specialty Start Date End Date Juany Rodriguez MD [address] [place] [address] PCP - General Family Medicine 09/01/17 Dirk DENNISON 08/13/24 documented as of this encounter
--- OUTSIDE RECORDS SUMMARY | 2024-11-30 15:10 | XMS_ITS | Encounter Summary ---
Author Organization [employer] Address [address] [facility] 7t [place] [address] Care Team Providers Care Hot Strip Finisher Name Role Phone Juany Rodriguez MD Primary Care Provider [phone] Reason for Visit * Reason Onset Date Comments Nurse Triage 08/20/2023 Encounter Details Date Type Department Care Team ([facility] st Contact Info) Description 08/20/2023 Telephone [facility] MEDICINE [address] [place] [address] Juany Rodriguez MD [address] [place] [address] Nurse Triage Social History Tobacco Use Types Packs/Day Years [...] Telephone Encounter - Marissa Echevarria RN - 08/20/2023 1:24 PM EST Telephone call to update Jefry with Instead visit in motion. Grand daughter agrees. * Telephone Encounter - Marissa Echevarria RN - 08/20/2023 10:38 AM EST Triage call Pt Juliet garciabeth SEAN Dinh, reports for last 2 days Pt has been halucinating. Pt reports pictures falling off the wall, curtains falling which are not actually occurring. PtBP is 183/95 at time of call, continues with lopresser 50mg po. Pt denies urinary symptoms. Neg forfever or ZEV sx. Pt is going for blood draw at 100pm today. Declines to come to [facility] at [facility]. No aptsavailable in [place] today will obtain insted visit with [facility] insurance present. Tish agrees to this plan and disposition. Agrees to in home visit. Protocol Used: Confusion - Delirium (Adult) Protocol-Based Disposition: See in Office or Video Visit Today Override (Final) Disposition: See in Office or Video Visit Today or Tomorrow Override Reason: No appointments available Positive Triage Questions: * Brief confusion (now gone) * Patient wants to be seen (or caregiver requests) * All higher-acuity triage questions were negative * Telephone Encounter - Ludmila Galvan - 08/20/2023 9:54 AM EST Symptom: Medication Reaction Outcome: Schedule an urgent appointment (within 1 hour) or talk to a nurse or provider soon Reason: Tish (grandchild) states pt is acting confuse since start new meds. The caller accepted this outcome Please contact Tish [phone] documented in this encounter Plan of Treatment Upcoming Encounters Date Type Department Care Team (Late st Contact Info) Description 03/09/2025 11:00 AM EDT Office Visit [facility] CHC MED & PEDS [address] [place] [address] Juany Rodriguez MD [address] [place] [address] documented as of this encounter Visit Diagnoses Not on filedocumented in this encounter Care Teams Hot Strip Finisher Relationship Specialty Start Date End Date Juany Rodriguez MD [address] [place] [address] PCP - General Family Medicine 09/01/17 Dirk DENNISON 08/13/24 documented as of this encounter
--- OUTSIDE RECORDS SUMMARY | 2024-11-30 15:10 | XMS_ITS | Encounter Summary ---
Author Organization [employer] Address [address] [facility] 7t [place] [address] Care Team Providers Care Needle Loom Operator Name Role Phone Juany Rodriguez MD Primary Care Provider [phone] Reason for Visit * Reason Onset Date Comments Paperwork/Forms 07/08/2023 Encounter Details Date Type Department Care Team ([facility] st Contact Info) Description 07/08/[address] [facility] MEDICINE [address] [place] [address] Jauny Rodriguez MD [address] [place], [place] [phone] Paperwork/Forms Social History Tobacco Use Types Packs/Day Years Used Date Smoking Tobacco: Never Assessed Comments Unknown Sex and Gender Information Value Date Recorded Sex Assigned at Female 07/22/2022 10:32 AM EDT Legal Sex Female 10:32 AM EDT Gender Identity Female 07/22/2022 10:32 AM EDT Sexual Orientation Straight 03/19/2024 3: 38 PM EDT documented as of this encounter Miscellaneous Notes * Telephone Encounter - Maude uGtierrez LPN - 07/11/2023 9:58 AM EDT Pa generated Via pending decision * Telephone Encounter - Negrita Yen - 07/08/2023 3:25 PM EDT Tc from [place] stated pt need a PA for medication sildenafil (Revatio) 20 MG tablet. Pt has no meds left. PCP DR. Rodriguez documented in this encounter Plan of Treatment Upcoming Encounters Date Type Department Care Team (Late st Contact Info) Description 03/09/2025 11:00 AM EDT Office Visit [facility] MED & PEDS [address] [place] [address] Juany Rodriguez MD [address] [place] [address] documented as of this encounter Visit Diagnoses Not on filedocumented in this encounter Care Teams Needle Loom Operator Relationship Specialty Start Date End Date Juany Rodriguez MD [address] [place] [address] PCP - General Family Medicine 09/01/17 Dirk DENNISON 08/13/24 documented as of this encounter
--- OUTSIDE RECORDS SUMMARY | 2024-11-30 15:10 | XMS_ITS | Clinical Summary ---
Author Organization [employer] Address [address] [facility] [address] [place] [address] Care Team Providers Care Building Consultant Name Role Phone Juany Rodriguez MD Primary Care Provider [phone] Allergies Active Allergy Reactions Criticality Noted Date Comments Aspirin Hives 02/13/2023 Penicillins Hives,Rash Low 08/28/2017 Medications ammonium lactate (Lac-Hydrin) 12 % lotion use 2 x day 020 Active ascorbic acid (Vitamin C) 500 MG tablet take 1 tablet by Oral route every day Active biotin 1 MG capsule as needed OTC Active Multiple Vitamins-Mineral s (PreserVision AREDS 2) capsule take 1 tablet by oral route daily Active pantoprazole (ProtoNix) 40 MG EC tabletIndication s:Other chronic gastritis without hemorrhage TAKE ONE TABLET TWICE DAILY 60 tablet 3 023 Active cycloSPORINE (Restasis) 0.05 % ophthalmic emulsion instill 1 drop by ophthalmic route every 12 hours into affected eye(s) 10 mL 023 Active Flovent HFA 220 MCG/ACT inhaler Inhale 2 puffs 2 times daily. 12 g 11 023 Active alendronate (Fosamax) 70 MG tabletIndication s:Age-related osteoporosis without current pathological fracture TAKE 1 TABLET ONCE A WEEK WITH 6 TO 8 OZ OF WATER 30 MINUTES BEFORE FIRST FOOD OF THE DAY. DO NOT LIE DOWN FOR 30 MINUTES. 4 tablet 11 023 Active hydrALAZINE (Apresoline) 25 MG tablet take 1 tablet by oral route 2 times every day with food 60 tablet 3 023 Active Neomycin-Polymyx in-HC 1 % solution Administer 3 drops into affected ear(s) 4 times daily. 10 mL 023 Active ipratropium-albu terol (Duo-Neb) 0.5-2.5 mg/3 mL nebulizer solution 1 uni dose now for wheezing 022 Active gabapentin (Neurontin) 100 MG capsule Take 2 capsules orally at bedtime for neuropathy 60 capsule 11 024 Active albuterol (Ventolin HFA) 108 (90 Base) MCG/ACT inhalerIndicatio ns:Moderate persistent asthma without complication INHALE TWO PUFFS EVERY 4 HOURS NEEDED 18 g 3 024 Active ferrous sulfate (FeroSul) 325 (65 Fe) MG tabletIndication s:Iron deficiency anemia, unspecified iron deficiency anemia type TAKE ONE TABLET THREE TIMES DAILY 270 tablet 5 024 Active atorvastatin (Lipitor) 40 MG tabletIndication s:Type 2 diabetes mellitus without complication, without long-term current use of insulin ([facility]),Severe pulmonary hypertension ([facility]) TAKE ONE TABLET AT BEDTIME 90 tablet 3 024 Active omega-3 (Fish Oil) 1000 MG capsule TAKE 1 CAPSULE BY MOUTH TWICE DAILY 180 capsule 024 Active SITagliptin (Januvia) 50 MG tablet Take 1 tablet (50 mg) by mouth Once per day. 30 tablet 024 2024 Active Respiratory Therapy Supplies (Nebulizer/Tubin g/Mouthpiece) kitIndications:M ild persistent asthma without complication To be used with Nebulizer 1 kit 2 024 Active insulin aspart FlexPen (NovoLOG) 100 UNIT/ML pen Give 2 units subcutaneously if sugars 150-200, 4 units if 201-250, 6 units if 251-300, 8 units if 301-350, 10 units if 350-400.Call MD if BS above 400 range 1 each 024 Active Alcohol Swabs (Alcohol Prep) padsIndications: Type 2 diabetes mellitus without complication, without long-term current use of insulin ([facility]) Use tid prn insulin injections 100 each Active pen needle 31G x 5 mm miscIndications: Type 2 diabetes mellitus without complication, without long-term current use of insulin ([facility]) Use as instructed tid 100 each 024 2024 Active glucose blood test stripIndications :Type 2 diabetes mellitus with hyperglycemia, with long-term current use of insulin ([facility]) 1 each by Other route 3 times daily. 100 each Active albuterol (2.5 MG/3ML) 0.083% nebulizer solutionIndicati ons:Severe pulmonary hypertension (CMS/HCC) INHALE ONE AMPULE USING A NEBULIZER EVERY 4 HOURS NEEDED 90 mL 3 Active glucose blood (FREESTYLE LITE) test strip TEST BLOOD SUGAR 4 TIMES A DAY 100 strip Active sildenafil (Revatio) 20 MG tablet TAKE ONE TABLET THREE TIMES DAILY FOUR TO SIX HOURS APART 90 tablet 3 024 Active furosemide (Lasix) 20 MG tablet Take 1 tablet (20 mg) by mouth Once per day for 10 days. 10 tablet Active cyanocobalamin (Vitamin B-12) 1000 MCG tablet TAKE ONE TABLET DAILY 90 tablet 024 Active hydrocortisone 1 % ointment APPLY TO THE AFFECTED AREA(S) TWICE DAILY IN THE MORNING AND AT BEDTIME NEEDED FOR ITCHING OR FOR PAIN RECTAL 28 g 11 024 Active furosemide (Lasix) 40 MG tabletIndication s:Type 2 diabetes mellitus without complications (CMS/HCC),Pulmon hany hypertension, unspecified ([facility]) TAKE ONE TABLET TWICE DAILY 60 tablet 024 Active simethicone (Simethicone Ultra Strength) 180 MG capsuleIndicatio ns:Type 2 diabetes mellitus without complication, without long-term current use of insulin ([facility]),Severe pulmonary hypertension (CMS/HCC) TAKE TWO CAPSULES THREE TIMES DAILY 180 capsule 3 024 Active senna (Senokot) 8.6 MG tablet TAKE TWO TABLETS DAILY NEEDED FOR CONSTIPATION 60 tablet 3 024 Active acetaminophen (Tylenol) 325 MG tabletIndication s:Pain TAKE TWO TABLETS EVERY 8 HOURS NEEDED FOR PAIN 180 tablet 1 025 Active apixaban (Eliquis) 5 MG tablet TAKE ONE TABLET TWICE DAILY 60 tablet 3 025 Active amLODIPine (Norvasc) 10 MG tablet TAKE ONE TABLET DAILY 30 tablet 3 025 Active meclizine (Antivert) 25 MG tablet TAKE 1 TABLET BY MOUTH THREE TIMES DAILY IN THE MORNING, AT NOON AND AT BEDTIME NEEDED FOR DIZZINESS 30 tablet Active metoprolol tartrate (Lopressor) 50 MG tablet TAKE ONE TABLET TWICE DAILY 60 tablet 025 Active docusate sodium (Colace) 100 MG capsule TAKE ONE CAPSULE TWICE DAILY NEEDED FOR CONSTIPATION 180 capsule 025 Active cholecalciferol VITAMIN D (Vitamin D-3) 50 MCG (1999) capsule TAKE ONE CAPSULE EVERY MORNING 90 capsule Active Trelegy Ellipta 100-62.5-25 MCG/ACT aerosol powder INHALE ONE PUFF EVERY MORNING, RINSE MOUTH AFTER USE 28 each Active Witch Stacey (Medi-Pads) 50 % pads APPLY TO THE AFFECTED AREA(S) NEEDED FOR DISCOMFORT 100 each Active Blood Pressure Monitoring (Comfort Touch BP Cuff/Medium) [facility] Needs another BP cuff please to check BP 1 each Active Docusate Sodium (DSS) 100 MG capsule TAKE 1 CAPSULE BY MOUTH TWICE DAILY IF NEEDED FOR CONSTIPATION 180 capsule 024 2024 Discontinued Witch Stacey (Medi-Pads) 50 % pads APPLY TO THE AFFECTED AREA(S) NEEDED DISCOMFORT 100 each 5 024 2024 Discontinued Trelegy Ellipta 100-62.5-25 MCG/ACT aerosol powder INHALE ONE PUFF EVERY MORNING 60 each 024 2024 Discontinued amLODIPine (Norvasc) 10 MG tablet TAKE ONE TABLET DAILY 30 tablet 3 024 2024 Discontinued apixaban (Eliquis) 5 MG tablet TAKE ONE TABLET TWICE DAILY 60 tablet 3 024 2024 Discontinued meclizine (Antivert) 25 MG tablet TAKE 1 TABLET BY MOUTH THREE TIMES DAILY IN THE MORNING, AT NOON AND AT BEDTIME NEEDED FOR DIZZINESS 30 tablet 024 2024 Discontinued(R naomie (will not trigger notification to Pharmacy)) cholecalciferol (Vitamin D-3) 50 MCG (1999 UT) capsule TAKE 1 CAPSULE BY MOUTH EVERY MORNING 90 capsule 024 2024 Discontinued metoprolol tartrate (Lopressor) 50 MG tablet TAKE ONE TABLET TWICE DAILY 60 tablet 025 2024 Discontinued(R eorder (will not trigger notification to Pharmacy)) Active Problems Problem Noted Date Diagnosed Date Chronic right shoulder pain 03/19/2024 Assessment & Plan (05/09/2024 10:15 PM EDT): No recent trauma, had a xray done recently, pending results, continue home remedies, if pain not improved and results available could consider cortisone injection Mental status, decreased 10/13/2023 Iron deficiency anemia 12/27/2022 Severe pulmonary hypertension 10/16/2022 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 Anemia in chronic kidney disease 09/06/2019 CKD (chronic kidney disease), stage III 05/13/20 18 Overview (10/16/2022): Update for Diagnosis Load Dyslipidemia 03/04/2018 Benign essential hypertension 08/06/2017 Chronic depression 08/06/2017 Type 2 diabetes mellitus 08/06/2017 Asthma 08/06/2017 Encounters Date Type Department Care Team Description 11/30/2024 11:30 AM EDT Office Visit [facility] [address] [place] [address] Juany Rodriguez MD Type 2 diabetes mellitus without complication, without long-term current use of insulin ([facility]) 11/30/2024 Travel 11/29/2024 Refill [facility] [address] [place] [address] Juany Rodriguez MD 11/25/2024 Refill [facility] [address] [place] [address] Juany Rodriguez MD 11/18/2024 Refill [facility] [address] [place] [address] Quentin Ruelas MD 11/05/2024 Refill [facility] [address] [place] [address] Juany Rodriguez MD 11/01/2024 Refill [facility] [address] [place] [address] Juany Rodriguez MD 10/12/2024 Refill [facility] [address] [place] [address] Juany Rodriguez MD Pain 10/08/2024 Refill [facility] [address] [place] [address] Juany Rodriguez MD 09/09/2024 Telephone [facility] [address] [place] [address] Juany Rodriguez MD Appointment Request 09/01/2024 Refill [facility] [address] [place] [address] Juany Rodriguez MD from Last 3 Months Immunizations Name Administration Dates Next Due Hep B, adult 05/30/2022,01/02/2022,12/05/2021 INFLUENZA VACCINE QUADRIVALE NT RECOMBINANT PRESERVATIVE FREE RIV4 07/22/2022 Influenza injectable quadriv alent preservative free 10/29/2023 Influenza, High Dose Seasona l, Preservative Free 07/08/2024,09/01/2018 Pneumococcal Conjugate PCV 13 11/13/2018 Tdap 09/01/2018 Zoster, Recombinant 04/20/2019 Zoster, live 06/08/2019 Social History Tobacco Use Types Packs/Day Years Used Date Smoking Tobacco: Never Passive Smoke Exposure: Never Smokeless Tobacco: Never Tobacco Cessation:Counseling Given: Not Answered Alcohol Use Standard Drinks/Week Comments Never 0 [...] Orientation Straight 03/19/2024 3: 38 PM EDT Last Filed Vital Signs Vital Sign Reading Time Taken Comments Blood Pressure 108/49 11/30/2024 11:30 AM EDT Pulse 63 11/30/2024 11:30 AM EDT Temperature 36.1 ??C (97 ??F) 11/30/2024 11:30 AM EDT Respiratory Rate 20 11/30/2024 11:30 AM EDT Oxygen Saturation 96% 11/30/2024 11:30 AM EDT Inhaled Oxygen Concentration - - Weight 77.6 kg (171 lb) 11/30/2024 11:30 AM EDT Height 154.9 cm (5' 1 ) 11/30/2024 11:30 AM EDT Body Mass Index 32.31 11/30/2024 11:30 AM EDT Plan of Treatment Upcoming Encounters Date Type Department Care Team ([facility] st Contact Info) Description 03/09/2025 11:00 AM EDT Office Visit [facility] [address] [facility] [place] [place] [address] Juany Rodriguez MD [address] [place] [address] Health Maintenance Due Date Last Done Comments Eye Exam 1955 Hepatitis C Screening 1963 Zoster Vaccines (2 of 2) 08/03/2019 06/08/2019, 03/24 RSV Patients and Patients Aged 60 years or older (1 - 1-dose 75+ series) 12/16/2019 COVID-19 Vaccine ( season) 2024 08/30/2021, 02/08/2021, 01/11/2021 Diabetes: Foot Exam 12/30/2024 12/31/2023, 12/31/2023, 12/31/2023, Additional history exists SDOH Screening 12/30/2024 12/31/2023 Diabetes: Hemoglobin A1C 06/02/2025 025, 05/12/2024, 10/29/2023, Additional history exists Lipid Panel 07/28/2025 07/28/2024 Alcohol/Substance Use Screening 11/30/2025 11/30/2024 Depression Screening 11/30/2025 11/30/2024, 12/01/19 Tobacco Screening 11/30/2025 11/30/2024 DTaP/Tdap/Td Vaccines (2 - Td or Tdap) 09/01/2028 09/01/2018 Hepatitis B Vaccines Completed 05/30/2022, 01/02/2022, 12/05/2021 Influenza Vaccine Completed 07/08/2024, , 07/22/2022, Additional history exists Pneumococcal Vaccine: 50+ Years Completed 09/03/2024, 11/13/2018 HIB Vaccines Aged Out No longer eligi ble based on patient's age to complete this topic HPV Vaccines Aged Out No longer eligi ble based on patient's age to complete this topic Hepatitis A Vaccines Aged Out No long er eligible based on patient's age to complete this topic IPV Vaccines Aged Out No longer eligi ble based on patient's age to complete this topic Meningococcal Vaccine Aged Out No carlin petey eligible based on patient's age to complete this topic RSV under 20 months Aged Out No longe r eligible based on patient's age to complete this topic Rotavirus Vaccines Aged Out No longer eligible based on patient's age to complete this topic Procedures Procedure Name Priority Date/Time Associated Diagnosis Comments POCT GLYCATED HEMOGLOBIN, TOTAL Routine 11/30/2024 11:59 AM EDT Type 2 diabetes mellitus without complication, without long-term current use of insulin ([facility]) POCT GLUCOSE Routine 11/30/2024 11:37 AM EDT Type 2 diabetes mellitus without complication, without long-term current use of insulin ([facility]) LIPID PANEL, STANDARD Routine 07/28/2024 12:33 PM EST Dyslipidemia from Last 3 Months or Most Recently Relevant to Health Maintenance Results * (ABNORMAL) POCT HGB A1C (11/30/2024 11:59 AM EDT) Hemoglobin A1C 6.1(A) 4.0 - 6.0 % QC Media Lot # [id number] Lot# Expiration Date 11426 Blood 11/30/2024 11:5 9 AM EDT Juany Rodriguez MD POINT OF CARE TEST ENTER/EDIT ORDERABLES Final Result * (ABNORMAL) POCT Glucose (11/30/2024 11:37 AM EDT) Glucose Blood, POC 214(A) 60 - 200 mg/dL QC Media Lot # [id number] Lot# Expiration Date 7325 Blood Capillary blood specimen / Unknown 11/30/2024 11:37 AM EDT us Juany Rodriguez MD POINT OF CARE TEST ENTER/EDIT ORDERABLES Final Result * (ABNORMAL) Lipid Panel, Standard (07/28/2024 12:33 PM EST) Triglycerides 52 <150 mg/dL [facility] Comment:Desirable Triglyceri de: less than 150 mg/dLBorderline High Triglyceride 150-199 mg/dLHigh Triglyceride: 200-499 mg/dLVery High Triglyceride: greater than or equal to 5OO mg/dL Cholesterol 177 <200 mg/dL [facility] Comment:Desirable Cholestero l: less than 200 mg/dLBorderline High Cholesterol: 200-239 mg/dLHigh Cholesterol: greater than 239 mg/dL LDL Cholesterol Calculated 115(H) <100 mg/dL [facility] Comment:Desirable LDL: less than 100 mg/dLNear Optimal/Above Optimal LDL: 110- 129 mg/dLBorderline High LDL: 130-159 mg/dLHigh LDL: 160-189 mg/dLVery High LDL: greater than or equal to 190 mg/dL HDL Cholesterol 52 >40 mg/dL [facility] Comment:Desirable HDL: great er than 40 mg/dL Note: This HDL assay may give artificially low results in patients with liver disease. Blood Venous blood specimen / Unknown 07/28/2024 12:33 PM EST 07/28/2024 2:18 PM EST us Juany Rodriguez MD LAB BLOOD ORDERABLES Final Re sult [facility] [address] [place] [address] [phone] from Last 3 Months or Most Recently Relevant to Health Maintenance Insurance [facility] Advance Directives Documents on File Type Date Recorded Patient Azure Architect Expl anation Advance Directives and Livin g Will 09/20/2024 2:37 PM HCP Care Teams Building Consultant Relationship Specialty Start Date End Date Juany Rodriguez MD [address] [place] [address] ABHIJIT Zimmerman [address] PCP - General Family Medicine 09/01/17 Dirk DENNISON 08/13/24
--- OUTSIDE RECORDS SUMMARY | 2024-11-30 15:10 | XMS_ITS | Encounter Summary ---
Author Organization [employer] Address [address] [facility] [address]t [place] [address] Care Team Providers Care Circulation Representative Name Role Phone Juany Rodriguez MD Primary Care Provider [phone] Reason for Visit * Reason Onset Date Comments Nurse Triage 03/18/2023 Encounter Details Date Type Department Care Team (Late st Contact Info) Description 03/18/2023 Telephone [facility] [address] [place] [address] Juany Rodriguez MD [address] [facility] [place] [phone] Nurse Triage Social History Tobacco Use Types [...] suspected to have Coronavirus/COVID-19? No / Unsure 03/06/2023 3:48 PM EDT documented as of this encounter Miscellaneous Notes * Telephone Encounter - Kandice Rolon RN - 03/18/2023 12:56 PM EDT Called pt daughter via [employer] engineering specialist [phone] [place]. No answer. Cordage Sales Representative left message on pt. Voicemail to call back [facility] nurses at [phone]. RE: Asthma attack. Called alternate number and granddaughter answered phone. States that grandmother did not have an asthma attack but she has a cough. No fever. Pt. Ran out of Albuteral nebulizer solution and needs refill. Cough is dry and no other sx. Did a Covid test yesterday and- Negative. Will send request for refill on Nebulizer solution and Family requests a phone call when the RX. Is sent to Pharmacy. Willsend this request to PCP or covering provider. Protocol Used: Cough (Adult) Protocol-Based Disposition: Home Care Positive Triage Question: * Cough with no complications * All higher-acuity triage questions were negative Care Advice Discussed: * Reassurance and Education - Cough * Coughing Spells * Prevent Dehydration * Avoid Tobacco Smoke * Humidifier * Telephone Encounter - Negrita Yen - 03/18/2023 11:42 AM EDT Symptom: Asthma Attack - Caller Reports Outcome: Schedule a same-day appointment or talk to a nurse or provider today Reason: Caller denied all higher acuity questions The caller accepted this outcome TAMAZIGHT SEPFABIOLA documented in this encounter Plan of Treatment Upcoming Encounters Date Type Department Care Team (Late st Contact Info) Description 03/09/2025 11:00 AM EDT Office Visit [facility] [address] [place] [address] Juany Rodriguez MD [address] [place] [address] documented as of this encounter Visit Diagnoses Diagnosis Severe pulmonary hypertension (CMS/HCC) documented in this encounter Care Teams Circulation Representative Relationship Specialty Start Date End Date Juany Rodriguez MD [address] [place] [address] PCP - General Family Medicine 09/01/17 Dirk DENNISON 08/13/24 documented as of this encounter
--- OUTSIDE RECORDS SUMMARY | 2024-11-30 15:10 | XMS_ITS | Encounter Summary ---
Author Organization [employer] Address [address] [place] [address] [address] [place] [address] Care Team Providers Care Sales Support Representative Name Role Phone Juany Rodriguez MD Primary Care Provider [phone] Encounter Details Date Type Department Care Team (Late st Contact Info) Description 10/16/2023 Abstract [employer] [address] [place], [place] [phone] Juany Rodriguez MD [address] [place], [place] [phone] Social History Tobacco Use Types Packs/Day Years [...] Description 03/09/2025 11:00 AM EDT Office Visit [facility] [address] [place], [place] [phone] Juany Rodriguez MD [address] [place], [place] [phone] documented as of this encounter Visit Diagnoses Not on filedocumented in this encounter Care Teams Sales Support Representative Relationship Specialty Start Date End Date Juany Rodriguez MD [address] [place] [id number] PCP - General Family Medicine 09/01/17 Dirk DENNISON 08/13/24 documented as of this encounter
--- OUTSIDE RECORDS SUMMARY | 2024-11-30 15:10 | XMS_ITS | Encounter Summary ---
Author Organization [employer] Address [address] [facility] 7t [place] [address] Care Team Providers Care Guide Travel Name Role Phone Juany Rodriguez MD Primary Care Provider [phone] Encounter Details Date Type Department Care Team ([facility] st Contact Info) Description 11/30/2024 11:30 AM EDT Office Visit [facility] [address] [facility] [place] [address] Juany Rodriguez MD [address] [place] [address] Type 2 diabetes mellitus without complication, without long-term current use of insulin ([facility]) Social History Tobacco Use Types Packs/Day Years [...] PM EDT documented as of this encounter Last Filed Vital Signs Vital Sign Reading [...] Mass Index 32.31 11/30/2024 11:30 AM EDT documented in this encounter Plan of Treatment Upcoming Encounters Date Type Department Care Team (Late st Contact Info) Description 03/09/2025 11:00 AM EDT Office Visit [facility] [address] [place] [address] Juany Rodriguez MD [address] [place] [address] documented as of this encounter Procedures Procedure Name Priority Date/Time Associated Diagnosis Comments POCT GLYCATED HEMOGLOBIN, TOTAL Routine 11/30/2024 11:59 AM EDT Type 2 diabetes mellitus without complication, without long-term current use of insulin ([facility]) POCT GLUCOSE Routine 11/30/2024 11:37 AM EDT Type 2 diabetes mellitus without complication, without long-term current use of insulin ([facility]) documented in this encounter Results * (ABNORMAL) POCT HGB A1C (11/30/2024 [...] Media Lot # [id number] Lot# Expiration Date 7,325 Blood Capillary blood specimen / Unknown 11/30/2024 11:37 AM EDT Juany Rodriguez MD POINT OF CARE TEST ENTER/EDIT ORDERABLES Final Result documented in this encounter Visit Diagnoses Diagnosis Type 2 diabetes mellitus without complication, without long-term current use of insulin ([facility]) documented in this encounter Additional Health Concerns Assessment Noted Time PHQ-9 Depression Total Score: 8 12/01/19 25 11:36 AM EDT documented as of this encounter Care Teams Guide Travel Relationship Specialty Start Date End Date Juany Rodriguez MD [address] [place] [id number] PCP - General Family Medicine 09/01/17 Dirk DENNISON 08/13/24 documented as of this encounter
--- OUTSIDE RECORDS SUMMARY | 2024-11-30 15:10 | XMS_ITS | Encounter Summary ---
Author Organization [employer] Address [address] [facility] [address] [place] [address] Care Team Providers Care Flake Miller Helper Name Role Phone Juany Rodriguez MD Primary Care Provider [phone] Reason for Visit * Reason Comments Med Refill Encounter Details Date Type Department Care Team ([facility] st Contact Info) Description 11/25/2024 Refill [facility]S [address] [place], [place] [phone] Juany Rodriguez MD [address] [place], [place] [phone] Social History Tobacco Use Types Packs/Day Years [...] 11:00 AM EDT Office Visit [facility] P[facility] [address] [place] [address] Juany Rodriguez MD [address] [place] [address] documented as of this encounter Visit Diagnoses Not on filedocumented in this encounter Care Teams Flake Miller Helper Relationship Specialty Start Date End Date Juany Rodriguez MD [address] [place] [address] PCP - General Family Medicine 09/01/17 Dirk DENNISON 08/13/24 documented as of this encounter
--- OUTSIDE RECORDS SUMMARY | 2024-11-30 15:10 | XMS_ITS | Encounter Summary ---
Author Organization [employer] Address [address] [facility] 7t [place] [address] Care Team Providers Care Auto Body Technician Name Role Phone Juany Rodriguez MD Primary Care Provider [phone] Encounter Details Date Type Department Care Team ([facility] st Contact Info) Description 07/12/2024 Orders Only [facility] MED & PEDS [address] [place], [place] [phone] Juany Rodriguez MD [address] [place], [place] [phone] Social History Tobacco Use Types Packs/Day Years Used Date Smoking Tobacco: Never Passive Smoke Exposure: Never Smokeless Tobacco: Never Alcohol Use Standard Drinks/Week Comments Never 0 (1 standard drink = 0.6 oz pur e alcohol) Housing Stability Answer Date Recorded What is your housing situation today? I have tiago deanne 12/31/[address] you li [...] 03/09/2025 11:00 AM EDT Office Visit [facility] MED & PEDS [address] [place] [address] Juany Rodriguez MD [address] [place] [address] documented as of this encounter Visit Diagnoses Not on filedocumented in this encounter Care Teams Auto Body Technician Relationship Specialty Start Date End Date Juany Rodriguez MD [address] [place] [address] PCP - General Family Medicine 09/01/17 Dirk DENNISON 08/13/24 documented as of this encounter
--- OUTSIDE RECORDS SUMMARY | 2024-11-30 15:10 | XMS_ITS | Encounter Summary ---
Author Organization [employer] Address [address] [facility] 7t [place] [address] Care Team Providers Care Hospice Clinical Marketer Name Role Phone Juany Rodriguez MD Primary Care Provider [phone] Reason for Visit * Reason Comments Med Refill Encounter Details Date Type Department Care Team ([facility] st Contact Info) Description 11/18/2024 Refill [facility] CH[facility] MED & PEDS [address] [place], [place] [phone] Quentin Ruelas MD [address] [place], [place] [phone] Social History Tobacco Use Types Packs/Day Years [...] Description 03/09/2025 11:00 AM EDT Office Visit [facility] MED & PEDS [address] [place] [address] Juany Rodriguez MD [address] [place] [address] documented as of this encounter Visit Diagnoses Not on filedocumented in this encounter Care Teams Hospice Clinical Marketer Relationship Specialty Start Date End Date Juany Rodriguez MD [address] [place] [address] PCP - General Family Medicine 09/01/17 Dirk DENNISON 08/13/24 documented as of this encounter
--- OUTSIDE RECORDS SUMMARY | 2024-11-30 15:10 | XMS_ITS | Encounter Summary ---
Author Organization [employer] Address [address] [facility] [address] [place] [address] Care Team Providers Care Dispatcher Tow Truck Name Role Phone Juany Rodriguez MD Primary Care Provider [phone] Reason for Visit * Reason Onset Date Comments Appointment Request 09/09/2024 Encounter Details Date Type Department Care Team ([facility] st Contact Info) Description 09/09/2024 Telephone [facility] MEDICINE [address] [place] [address] Juany Rodriguez MD 505 [facility] [place] [phone] Appointment Request Social History Tobacco Use Types [...] encounter Miscellaneous Notes * Telephone Encounter - Andreas Diallo - 09/09/2024 2:19 PM EST Tc from daughter requesting to reschedule her appointment as she missed due to not being able to come in , pt has a rough schedule as she takes dialysis and will like a callback from PCP to consult pt availability, callback [phone] documented in this encounter Plan of Treatment Upcoming Encounters Date Type Department Care Team (Late st Contact Info) Description 03/09/2025 11:00 AM EDT Office Visit [facility] MED & PEDS [address] [place] [address] Juany Rodriguez MD 505 [place] [address] documented as of this encounter Visit Diagnoses Not on filedocumented in this encounter Care Teams Dispatcher Tow Truck Relationship Specialty Start Date End Date Juany Rodriguez MD [address] [place] [address] PCP - General Family Medicine 09/01/17 Dirk DENNISON 08/13/24 documented as of this encounter
--- OUTSIDE RECORDS SUMMARY | 2024-11-30 15:10 | XMS_ITS | Encounter Summary ---
Author Organization [employer] Address [address] [facility] [address] 7[address] [place] [address] Care Team Providers Care Senior Water/Wastewater Engineer Name Role Phone Juany Rodriguez MD Primary Care Provider [phone] Encounter Details Date Type Department Care Team (Latest Contact Info) Description 11/30/2024 Travel Social History Tobacco Use Types Packs/Day Years [...] Upcoming Encounters Date Type Department Care Team ([facility] st Contact Info) Description 03/09/2025 11:00 AM EDT Office Visit [facility] MED & PEDS [address] [place] [address] Juany Rodriguez MD [address] [place] [address] documented as of this encounter Visit Diagnoses Not on filedocumented in this encounter Additional Health Concerns Assessment Noted Time PHQ-9 Depression Total Score: 8 12/01/19 25 11:36 AM EDT documented as of this encounter Care Teams Senior Water/Wastewater Engineer Relationship Specialty Start Date End Date Juany Rodriguez MD [address] [place] [address] PCP - General Family Medicine 09/01/17 Dirk DENNISON 08/13/24 documented as of this encounter
--- OUTSIDE RECORDS SUMMARY | 2024-11-30 15:10 | XMS_ITS | Encounter Summary ---
Author Organization [employer] Address [address] [facility] [place] [address] Care Team Providers Care Neurophysiologist Name Role Phone Juany Rodriguez MD Primary Care Provider [phone] Reason for Visit * Reason Onset Date Comments Med Refill 11/05/2024 Encounter Details Date Type Department Care Team (Late st Contact Info) Description 11/05/2024 Refill [facility] [address] [place], [place] [phone] Juany Rodriguez MD 505 [facility] [place] [phone] Social History Tobacco Use Types Packs/Day Years [...] encounter Miscellaneous Notes * Telephone Encounter - Enid Clark - 11/05/2024 10:29 AM EST TC from pt requesting medication refill. Medications needing refill : meclizine (Antivert) 25 MG tablet metoprolol tartrate (Lopressor) 50 MG tablet To be sent to: [facility] documented in this encounter Plan of Treatment Upcoming Encounters Date Type Department Care Team (Late st Contact Info) Description 03/09/2025 11:00 AM EDT Office Visit [facility] MED & PEDS [address] [place] [address] Juany Rodriguez MD 505 [place] [address] documented as of this encounter Visit Diagnoses Not on filedocumented in this encounter Care Teams Neurophysiologist Relationship Specialty Start Date End Date Juany Rodriguez MD 505 [place] [address] PCP - General Family Medicine 09/01/17 Dirk DENNISON 08/13/24 documented as of this encounter
--- OUTSIDE RECORDS SUMMARY | 2024-11-30 15:10 | XMS_ITS | Encounter Summary ---
Author Organization [employer] Address [address] [facility] 7t [place] [address] Care Team Providers Care Lighting Specialist Name Role Phone Juany Rodriguez MD Primary Care Provider [phone] Reason for Visit * Reason Comments Med Refill Encounter Details Date Type Department Care Team ([facility] Contact Info) Description 03/18/2023 Refill [facility] MED & PEDS 505 [facility] [place] [address] Juany Rodriguez MD 505 [facility] [place] [address] Severe pulmonary hypertension (CMS/HCC) Social History Tobacco [...] Upcoming Encounters Date Type Department Care Team ([facility] Contact Info) Description 03/09/2025 11:00 AM EDT Office Visit [facility] MED & PEDS [address] [place] [address] Juany Rodriguez MD [address] [place] [address] documented as of this encounter Visit Diagnoses Diagnosis Severe pulmonary hypertension (CMS/HCC) documented in this encounter Care Teams Lighting Specialist Relationship Specialty Start Date End Date Juany Rodriguez MD [address] [place] [address] PCP - General Family Medicine 09/01/17 Dirk DENNISON 08/13/24 documented as of this encounter
--- OUTSIDE RECORDS SUMMARY | 2024-11-30 15:10 | XMS_ITS | Encounter Summary ---
Author Organization [employer] Address [address] [facility] 7[address] [place] [address] Care Team Providers Care Attending Physician Name Role Phone Juany Rodriguez MD Primary Care Provider [phone] Reason for Visit * Reason Comments Med Refill Encounter Details Date Type Department Care Team (Late st Contact Info) Description 01/12/2023 Refill [facility] MED & PEDS [address] [place] [address] Juany Rodriguez MD 505 [place], [place] [phone] Pain Social History Tobacco Use Types Packs/Day Years [...] 11:00 AM EDT Office Visit [facility] MED & PEDS [address] [place], [place] [phone] Juany Rodriguez MD 505 [place] [address] documented as of this encounter Visit Diagnoses Diagnosis Pain Generalized pain documented in this encounter Care Teams Attending Physician Relationship Specialty Start Date End Date Juany Rodriguez MD [address] [place] [address] PCP - General Family Medicine 09/01/17 Dirk DENNISON 08/13/24 documented as of this encounter
--- OUTSIDE RECORDS SUMMARY | 2024-11-30 15:11 | XMS_ITS | Encounter Summary ---
Author Organization [employer] Address [address] [facility] [address] [facility] [address] [place] [address] Care Team Providers Care Local Truck Driver Name Role Phone Juany Rodriguez MD Primary Care Provider [phone] Reason for Visit * Reason Comments Med Refill Encounter Details Date Type Department Care Team ([facility] Contact Info) Description 08/11/2024 Refill [facility] MED & PEDS [address] [place] [phone] Araceli Clifford MD 505 [place], [place] [phone] Social History Tobacco Use Types Packs/Day Years [...] Description 03/09/2025 11:00 AM EDT Office Visit [facility] MED & PEDS [address] [place] [address] Juany Rodriguez MD 505 [place] [address] documented as of this encounter Visit Diagnoses Not on filedocumented in this encounter Care Teams Local Truck Driver Relationship Specialty Start Date End Date Juany Rodriguez MD [address] [place] [address] PCP - General Family Medicine 09/01/17 Dirk DENNISON 08/13/24 documented as of this encounter
--- OUTSIDE RECORDS SUMMARY | 2024-11-30 15:11 | XMS_ITS | Encounter Summary ---
Author Organization [employer] Address [address] [facility] 7t [place] [address] Care Team Providers Care Steel Tier Name Role Phone Juany Rodriguez MD Primary Care Provider Reason for Visit * Reason Comments Med Refill Encounter Details Date Type Department Care Team ([facility] st Contact Info) Description 08/11/2024 Refill [facility] CHC MED & PEDS [address] [place], [place] [phone] Juany Rodriguez MD [address] [place], [place] [phone] Other chronic gastritis without hemorrhage Social History Tobacco Use Types Packs/Day Years [...] encounter Miscellaneous Notes * Telephone Encounter - Bethany Schumacher - 08/11/2024 11:34 AM EST Tc from p documented in this encounter Plan of Treatment Upcoming Encounters Date Type Department Care Team ([facility] st Contact Info) Description 03/09/2025 11:00 AM EDT Office Visit [facility] CHC MED & PEDS [address] [place] [address] Juany Rodriguez MD [address] [place] [address] documented as of this encounter Visit Diagnoses Diagnosis Other chronic gastritis without hemorrhage documented in this encounter Care Teams Steel Tier Relationship Specialty Start Date End Date Juany Rodriguez MD [address] [place] [address] PCP - General Family Medicine 09/01/17 Dirk DENNISON 08/13/24 documented as of this encounter
== END 2024-11-30 12:36 | disposition home or self-care (01) ==
LOC: HO.LAB 12:35
PROVIDERS: Absent Provider Internal Medicine Hypertension Specialist; PCP Pediatrics; Visit Provider Nurse Practitioner Family
DX: Z13.89 Encounter for screening for other disorder (principal)
CPT/HCPCS: 81003

== ENCOUNTER → 2024-12-21 | Outpatient (BNV) | payer OTHER, SELFPAY | PROVIDERS: PCP Pediatrics; Visit Provider Internal Medicine Hypertension Specialist | DX: N18.6 End stage renal disease (principal) | CPT/HCPCS: 90962 ==

== ENCOUNTER 2025-01-13 14:13 | Outpatient (AMB) | payer OTHER, SELFPAY ==
--- NOTE | 2025-01-13 15:29 | A.OFFVIS_ITS ---
Vital Signs 01/13/25 15:30 Height 5 ft 1 in Weight 175 lb 14.862 oz BMI 33.2 BP 114/52 L Blood Pressure Location Rt brachial Position Sitting Pulse 59 Pulse Source Pulse Oximeter Intake Visit Reasons: 7 mth f/up Human Resources Vice President Required: Yes Human Resources Vice President Language: Concrete Pump Operator Helper Name: voice moy [id number] Senior Game Developer: Senior Game Developer Present Allergies faviola [FAVIOLA] Adverse Reaction (Intermediate, Verified 01/13/25 15:34) NAUSEA & VOMITING Penicillins [PENICILLINS] Adverse Reaction (Unknown, Verified 01/13/25 15:34) NAUSEA & VOMITING [facility] Allergy (Unknown, Uncoded 01/13/25 15:34) NAUSEA & VOMITING SARDINES Adverse Reaction (Intermediate, Uncoded 01/13/25 15:34) NAUSEA & VOMITING Medication List - Last Reconciled 01/14/25 by Rebeca Ortiz TELECOM NETWORK MANAGER-C acetaminophen 650 mg PO DAILY PRN albuterol sulfate 90 mcg/actuation (Ventolin HFA) 2 puffs inhalation Q4H PRN albuterol sulfate 2.5 mg (3 mL) inhalation Q4H PRN alendronate 70 mg PO MO amlodipine 10 mg PO DAILY ammonium lactate 12% 1 appl topical DAILY apixaban (Eliquis) 2.5 mg PO BID 90 days atorvastatin 40 mg PO BEDTIME blood sugar diagnostic (FreeStyle Lite Strips) As directed calcium polycarbophil (Fiber (calcium polycarbophil)) 625 mg PO DAILY cholecalciferol (vitamin D3) 50 mcg PO DAILY cyanocobalamin (vitamin B-12) 1,000 mcg PO DAILY docusate sodium 100 mg PO BID PRN famotidine 20 mg PO DAILY hdnygvahyit-ubkdbtukc-mcnhzywv 100-62.5-25 mcg (Trelegy Ellipta) 1 inh inhalation DAILY 30 days furosemide 40 mg PO DAILY gabapentin 200 mg PO BEDTIME hydrocortisone 1% 1 appl topical DAILY PRN inhalational spacing device (Vortex Holding Chamber) As directed insulin aspart U-100 (Novolog FlexPen U-100 Insulin aspart) See Protocol sliding scale doses subcut .TIDPC ketorolac 0.5% 1 drp ophthalmic (eye) DAILY PRN lactulose 10 grams (15 mL) PO DAILY PRN lansoprazole 30 mg PO DAILY mdkmxb-beuhlzcd-tzkjalg 36,000-114,000- 180,000 unit (Creon) 1 cap PO QID lisinopril 10 mg PO DAILY meclizine 25 mg PO DAILY PRN metoprolol tartrate 50 mg PO BID 90 days eqzqarmtmihw-puec-quxya acid 18-400 mg-mcg (Centrum Women) 1 tab PO DAILY nebulizers As directed omega 1-vxl-src-fish oil 300 mg (120 mg- 180mg)-1,000 mg 1 cap PO DAILY peg 593-dawpganppesy-ctxabfwh 1-0.2-0.2 % (Artificial Tears (oz342-ogfzdylnu-pnsrgahc)) 1 drp ophthalmic (eye) DAILY PRN polyethylene glycol 3350 (Miralax) 17 grams PO BID PRN 30 days sennosides (senna) 8.6 - 17.2 mg PO DAILY sildenafil (pulm.hypertension) 20 mg PO TID 90 days simethicone 180 mg PO TID PRN sitagliptin phosphate (Januvia) 50 mg DAILY sodium polystyrene sulfonate 15 grams PO BEDTIME PRN sucralfate 1 g PO DAILY vit C,H-Qh-ftkxn-lutein-zeaxan 250-90-40-1 mg (PreserVision AREDS-2) 1 tab PO BID HPI HPI 7 mth f/up: Details: Belen is a 79-year-old female with past medical history of diabetes, pulmonary hypertension, paroxysmal atrial fibrillation, cardiomyopathy, diastolic heart failure, obstructive sleep apnea, end-stage renal disease, now on dialysis who presents for follow-up. Today she reports that she has been doing generally well since her last visit in May. She did have a heart failure admission in July and was started on dialysis around that time. She attends dialysis 3 times weekly and tolerates it well. Her blood pressure does go low at times and she has some lightheadedness and fatigue on the dialysis days. No concerning chest discomfort. She will get short of breath when she does activities and relates this to her asthma. No PND, orthopnea or edema. No heart palpitations, lightheadedness, presyncope, syncope, falls. She is mostly sedentary. Compliant with meds. No bleeding issues with Eliquis. Daughter is present. Certified nuclear medicine physician used. [facility] Medical History Chronic kidney disease Shortness of breath Chest discomfort Exocrine pancreatic insufficiency ANKIT (obstructive sleep apnea) Asthma Pulmonary hypertension Vasovagal syncope Type 2 diabetes mellitus with unspecified complications Essential hypertension PAF (paroxysmal atrial fibrillation) Cardiomyopathy Surgical History No pertinent past surgical history Family History Father No problems noted. Mother No problems noted. Social History Household Members: Family Housing: House Do you presently have visiting nurse or other home services: Yes (model engine mechanic) Alcohol intake: never Patient Tobacco Use Status: Never used Tobacco service: No Review of Systems Const All systems reviewed & are unremarkable except as noted in HPI and below ENT Reports dizziness Card Denies chest pain, Denies chest pain at rest, Denies chest pain with activity, Denies rapid heart rate, Denies pedal edema, Denies edema, Denies leg edema, Denies lightheadedness, Denies palpitations, Denies dyspnea, Reports dyspnea on exertion and Denies orthopnea Resp Denies cough, Denies dyspnea and Reports dyspnea on exertion GI Denies hematochezia and Denies change in stool character Musc Denies abnormal gait, Denies limited range of motion, Denies muscle cramps, Denies muscle weakness, Denies numbness, Denies radiating pain into limb, Denies stiffness and Denies tingling Neuro Denies abnormal gait, Reports dizziness, Denies numbness and Denies tingling Endo Denies palpitations Physical Exam Vital Signs: Last Vital Signs Pulse 59 01/13/25 15:30 BP 114/52 L 01/13/25 15:30 BMI result Body Mass Index 33.2 Const General: cooperative, healthy appearing, comfortable and no acute distress Orientation/consciousness: patient oriented x3 Neck Neck: Yes normal visual inspection Resp Effort & Inspection: normal respiratory effort Auscultation: clear to auscultation bilaterally, no crackles, no rales, no rhonchi and no wheezes Cardio Jugular venous distension: no JVD Rate: regular rate Rhythm: regular rhythm Heart sounds: S1 normal heart sound present, S2 normal heart sound present, no murmurs and no rubs Neuro General: patient oriented x3 Extrem General: Yes normal to inspection, No no pedal edema and No calf tenderness Psych Appearance: grossly normal Mental Status: mental status grossly normal Speech and movement: Normal speech and movement present Assessment & Plan Assessment & Plan (1) Chronic diastolic (congestive) heart failure: Code(s): I50.32 - Chronic diastolic (congestive) heart failure Category: Medical Plan: History of heart failure with preserved EF. Last echocardiogram done 01/29/2023 showed normal EF, 55% with grade 2 diastolic dysfunction, basal inferior hypokinetic. Since last visit she has been started on dialysis for end-stage renal disease. At this time she does not appear fluid overloaded. She continues on Lasix and follows closely with Nephrology. Reviewed low-salt diet, signs and symptoms of heart failure. (2) PAF (paroxysmal atrial fibrillation): Code(s): I48.0 - Paroxysmal atrial fibrillation Category: Medical Plan: History of paroxysmal atrial fibrillation, currently suppressed. Last EKG 08/03/2024 shows sinus rhythm with sinus arrhythmia, rate 63. Pulse is very regular on exam today. Continue to pursue rhythm control. Continue metoprolol for heart rate control. Continue Eliquis for anticoagulation. Will reduce her dose down to 2.5 mg b.i.d. due to her age and creatinine. (3) Chest discomfort: Code(s): R07.89 - Other chest pain Category: Medical Plan: Prior reports of atypical chest discomfort. She has no known history of CAD. EKGs nonischemic. Last Echocardiogram does mention basal inferior hypokinesis. Cardiac risk factors of hypertension, diabetes, chronic kidney disease, age. She underwent pharmacological nuclear stress test on 05/07/2024 showing normal myocardial perfusion imaging. Spent time reviewing results with her and explaining that even though she has discomfort in her chest region there is no evidence that it is cardiac in nature. Her symptom could have been GI related. She has a history of GERD and does follow with GI. Continue atorvastatin, metoprolol, amlodipine. (4) Pulmonary hypertension: Code(s): I27.20 - Pulmonary hypertension, unspecified Category: Medical Plan: History of pulmonary hypertension. Has been taking sildenafil. Following with Dr. Johnson for pulmonology. Breathing currently stable. (5) ANKIT (obstructive sleep apnea): Code(s): G47.33 - Obstructive sleep apnea (adult) (pediatric) Category: Medical Plan: Moderate to severe obstructive sleep apnea. Inconsistent with CPAP. She follows with Dr. Johnson. Encouraged her to wear mask and reviewed the risks of untreated sleep apnea. (6) Essential hypertension: Code(s): I10 - Essential (primary) hypertension Category: Medical Plan: Blood pressure goal less than 130/80. Well controlled at present. No med changes made. Plan Time spent on chart review, documentation, interview and assessment Medications: New apixaban (Eliquis) 2.5 mg PO BID 90 days 180 tabs 3RF Refilled sildenafil (pulm.hypertension) administer doses at least 4-6 hours apart 20 mg PO TID 90 days 270 tabs 3RF metoprolol tartrate 50 mg PO BID 90 days 180 tabs 3RF Discontinued apixaban (Eliquis) Discontinued Reason: Doctor's Order 5 mg PO BID 180 tabs 3RF Coding Level of Care Code Est Pt Level 4 (76869) Complex EM visit Add On G2211 Diagnoses Chronic diastolic (congestive) heart failure I50.32 PAF (paroxysmal atrial fibrillation) I48.0 Chest discomfort R07.89 Pulmonary hypertension I27.20 ANKIT (obstructive sleep apnea) G47.33 Essential hypertension I10 Time Spent (min) 32
[2025-01-13 15:30] VITALS: BP 114/52; PULSE 59; BMI 33.2
--- OUTSIDE RECORDS SUMMARY | 2025-01-13 16:44 | XMS_ITS | Encounter Summary ---
Author Organization [employer] Address [address] [address] [place] [address] Care Team Providers Care Yarn Washer Name Role Phone Juany Rodriguez MD Primary Care Provider [phone] Reason for Visit * Reason Onset Date Comments Durable Medical Equipment 12/09/2024 Encounter Details Date Type Department Care Team (Late st Contact Info) Description 12/09/2024 Telephone [facility] [address] [place] [address] Juany Rodriguez MD 505 [facility] [place] [phone] Durable Medical Equipment Social History Tobacco Use Types Packs/Day Years [...] encounter Miscellaneous Notes * Telephone Encounter - Rafat Don - 12/09/2024 11:12 AM EDT Tc from pt requesting DME script for Bed pads Wipes for Washing to Shower XL Loves Diapers XL Pt granddaughter states has been waiting for a month. Contact pt radha at [phone] documented in this encounter Plan of Treatment Upcoming Encounters Date Type Department Care Team (Late st Contact Info) Description 03/09/2025 11:00 AM EDT Office Visit [facility] MED & PEDS [address] [place] [address] Juany Rodriguez MD [address] [place] [address] documented as of this encounter Visit Diagnoses Not on filedocumented in this encounter Additional Health Concerns Assessment Noted Time PHQ-9 Depression Total Score: 8 12/01/19 25 11:36 AM EDT documented as of this encounter Care Teams Yarn Washer Relationship Specialty Start Date End Date Juany Rodriguez MD [address] [place] [address] PCP - General Family Medicine 09/01/17 Dirk DENNISON 08/13/24 documented as of this encounter
--- OUTSIDE RECORDS SUMMARY | 2025-01-13 16:44 | XMS_ITS | Encounter Summary ---
Author Organization [employer] Address [address] [place] [address] 7[place], [place] [address] Care Team Providers Care Calender Wind Up Tender Name Role Phone Juany Rodriguez MD Primary Care Provider [phone] Encounter Details Date Type Department Care Team (Late st Contact Info) Description 10/16/2023 Abstract [facility] [address] [place], [place] [phone] Juany Rodriguez MD 505 [place], [place] [phone] Social History Tobacco Use Types Packs/Day Years [...] Description 03/09/2025 11:00 AM EDT Office Visit [facility] MED [facility]S 505 [place], [place] [phone] Juany Rodriguez MD 505 [place], [place] [phone] documented as of this encounter Visit Diagnoses Not on filedocumented in this encounter Care Teams Calender Wind Up Tender Relationship Specialty Start Date End Date Juany Rodriguez MD [address] [place] [address] PCP - General Family Medicine 09/01/17 Dirk DENNISON 08/13/24 documented as of this encounter
--- OUTSIDE RECORDS SUMMARY | 2025-01-13 16:44 | XMS_ITS | Encounter Summary ---
Author Organization [employer] Address 75 [facility] 7t [place] [address] Care Team Providers Care Barrel Charrer Name Role Phone Juany Rodriguez MD Primary Care Provider [phone] Reason for Visit * Reason Comments Med Refill Encounter Details Date Type Department Care Team (Late st Contact Info) Description 02/03/2023 Refill [facility] MED & PEDS 505 [place], [place] [phone] Juany Rodriguez MD 505 [place], [place] [phone] Severe pulmonary hypertension (CMS/HCC) Social History Tobacco [...] Upcoming Encounters Date Type Department Care Team ([facility] Contact Info) Description 03/09/2025 11:00 AM EDT Office Visit [facility] MED & PEDS 505 [place], [place] [phone] Juany Rodriguez MD 505 [place], [place] [phone] documented as of this encounter Visit Diagnoses Diagnosis Severe pulmonary hypertension (CMS/HCC) documented in this encounter Care Teams Barrel Charrer Relationship Specialty Start Date End Date Juany Rodriguez MD [address] [place] [address] PCP - General Family Medicine 09/01/17 Dirk DENNISON 08/13/24 documented as of this encounter
--- OUTSIDE RECORDS SUMMARY | 2025-01-13 16:44 | XMS_ITS | Encounter Summary ---
Author Organization [employer] Address 75 [facility] 7t [place] [address] Care Team Providers Care Golf Professional Name Role Phone Juany Rodriguez MD Primary Care Provider [phone] Reason for Visit * Reason Comments Med Refill Encounter Details Date Type Department Care Team (Late st Contact Info) Description 01/12/2023 Refill [facility] MED & PEDS 505 [place] [address] Juany Rodriguez MD 505 [place], [place] [phone] Pain Social History Tobacco Use Types Packs/Day [...] 11:00 AM EDT Office Visit [facility] MED [facility]EDS 505 [place], [place] [phone] Juany Rodriguez MD 505 [place] [address] documented as of this encounter Visit Diagnoses Diagnosis Pain Generalized pain documented in this encounter Care Teams Golf Professional Relationship Specialty Start Date End Date Juany Rodriguez MD [address] [place] [address] PCP - General Family Medicine 09/01/17 Dirk DENNISON 08/13/24 documented as of this encounter
--- OUTSIDE RECORDS SUMMARY | 2025-01-13 16:44 | XMS_ITS | Encounter Summary ---
Author Organization [employer] Address 75 [facility] 7t [place] [address] Care Team Providers Care Clinical Documentation Specialist Name Role Phone Juany Rodriguez MD Primary Care Provider [phone] Encounter Details Date Type Department Care Team ([facility] st Contact Info) Description 07/12/2024 Orders Only [facility] MED & PEDS 505 [place], [place] [phone] Juany Rodriguez MD 505 [place], [place] [phone] Social History Tobacco Use Types Packs/Day Years [...] Description 03/09/2025 11:00 AM EDT Office Visit [facility] MED & PEDS 505 [place] [address] Juany Rodriguez MD 505 [place] [address] documented as of this encounter Visit Diagnoses Not on filedocumented in this encounter Care Teams Clinical Documentation Specialist Relationship Specialty Start Date End Date Juany Rodriguez MD 505 [place] [address] PCP - General Family Medicine 09/01/17 Dirk DENNISON 08/13/24 documented as of this encounter
--- OUTSIDE RECORDS SUMMARY | 2025-01-13 16:44 | XMS_ITS | Encounter Summary ---
Author Organization [employer] Address [address] [facility] [address] 7t [place] [address] Care Team Providers Care Area Coordinator Name Role Phone Juany Rodriguez MD Primary Care Provider [phone] Reason for Visit * Reason Onset Date Comments Med Refill 12/03/2024 Encounter Details Date Type Department Care Team (Late st Contact Info) Description 12/03/2024 Telephone [facility] MEDICINE 230 [place] [address] Juany Rodriguez MD 505 [facility] [place] [phone] Med Refill Social History Tobacco Use Types Packs/Day Years [...] encounter Miscellaneous Notes * Telephone Encounter - Anamaria Batista LPN - 12/03/2024 11:51 AM EDT Medication pended to PCP. * Telephone Encounter - Andreas Diallo - 12/03/2024 11:48 AM EDT TC from pt requesting medication refill. Medications needing refill : meclizine (Antivert) 25 MG tablet metoprolol tartrate (Lopressor) 50 MG tablet To be sent to: [facility] - [place], [place] - [address] [place] [address] documented in this encounter Plan of Treatment Upcoming Encounters Date Type Department Care Team ([facility] st Contact Info) Description 03/09/2025 11:00 AM EDT Office Visit [facility] CH[facility] MED & PEDS [address] [place] [address] Juany Rodriguez MD 505 [place] [address] documented as of this encounter Visit Diagnoses Not on filedocumented in this encounter Additional Health Concerns Assessment Noted Time PHQ-9 Depression Total Score: 8 12/01/19 25 11:36 AM EDT documented as of this encounter Care Teams Area Coordinator Relationship Specialty Start Date End Date Juany Rodriguez MD [address] [place] [address] PCP - General Family Medicine 09/01/17 Dirk DENNISON 08/13/24 documented as of this encounter
--- OUTSIDE RECORDS SUMMARY | 2025-01-13 16:44 | XMS_ITS | Encounter Summary ---
Author Organization [employer] Address 75 [facility] 7t [place] [address] Care Team Providers Care Shop Helper Name Role Phone Juany Rodriguez MD Primary Care Provider [phone] Encounter Details Date Type Department Care Team (Latest Contact Info) Description 05/07/2022 Abstract [facility] Dental, Provider, DDS Social History [...] Description 03/09/2025 11:00 AM EDT Office Visit [facility] MED & PEDS 505 [place] [address] Juany Rodriguez MD 505 [place] [address] documented as of this encounter Visit Diagnoses Not on filedocumented in this encounter Care Teams Shop Helper Relationship Specialty Start Date End Date Juany Rodriguez MD 505 [place] [address] PCP - General Family Medicine 09/01/17 Dirk DENNISON 08/13/24 documented as of this encounter
--- OUTSIDE RECORDS SUMMARY | 2025-01-13 16:44 | XMS_ITS | Encounter Summary ---
Author Organization [employer] Address [address] [facility] 7t [place] [address] Care Team Providers Care Hardwood Finisher Name Role Phone Juany Rodriguez MD Primary Care Provider [phone] Reason for Referral * Medications - Closed Specialty Diagnoses / Procedures Referred By Contac t Referred To Contact Diagnoses Type 2 diabetes mellitus with hyperglycemia, with long-term current use of insulin (CMS/HCC) Rashmi Marquez MD 505 [place] [address] Phone: tel: fax: Referral ID Status Reason Start Date Expiration Date Visits Re quested Visits Authorized [id number] Closed 1 1 Encounter Details Date Type Department Care Team (Late st Contact Info) Description 05/14/2024 Orders Only [facility] [address] [place] [address] Rashmi Marquez MD 505 [place] [address] Type 2 diabetes mellitus with hyperglycemia, with [...] Description 03/09/2025 11:00 AM EDT Office Visit [facility] MED & PEDS 505 [place] [address] Juany Rodriguez MD 505 [place] [address] documented as of this encounter Visit Diagnoses Diagnosis Type 2 diabetes mellitus with hyperglycemia, with long-term current use of insulin ([facility])- Primary documented in this encounter Care Teams Hardwood Finisher Relationship Specialty Start Date End Date Juany Rodriguez MD 505 [place] [address] PCP - General Family Medicine 09/01/17 Dirk DENNISON 08/13/24 documented as of this encounter
--- OUTSIDE RECORDS SUMMARY | 2025-01-13 16:44 | XMS_ITS | Encounter Summary ---
Author Organization [employer] Address [address] [facility] [address] 7t [place] [address] Care Team Providers Care Dean Of Instruction Name Role Phone Juany Rodriguez MD Primary Care Provider [phone] Reason for Visit * Reason Onset Date Comments Appointment Request 07/06/2024 Encounter Details Date Type Department Care Team ([facility] st Contact Info) Description 07/06/2024 Telephone [facility] MEDICINE 230 [place] [address] Juany Rordiguez MD 505 [facility] [place] [phone] Appointment Request Social History Tobacco Use Types [...] 07/06/2024 3:20 PM EDT Triage call with [employer] machine load clerk jaimie Carrasco. Pt daughter had called requesting rescheduled apt . Pt had loose stools and wasn't able to leave house. New apt scheduled for 07/09/24 @ 845am with Dr. Clifford. Eufemiax bilateral pedal edema/hand swelling. [facility] was offered for today but, declined. * Telephone Encounter - Tc Johnson - 07/06/2024 2:45 PM EDT Tc from Daughter stating pt was unable to make it to today's visit and is requesting to reschedule. documented in this encounter Plan of Treatment Upcoming Encounters Date Type Department Care Team (Late st Contact Info) Description 03/09/2025 11:00 AM EDT Office Visit [facility] MED [facility] PEDS 505 [place] [address] Juany Rodriguez MD 505 [place] [address] documented as of this encounter Visit Diagnoses Not on filedocumented in this encounter Care Teams Dean Of Instruction Relationship Specialty Start Date End Date Juany Rodriguez MD 505 [place] [address] PCP - General Family Medicine 09/01/17 Dirk DENNISON 08/13/24 documented as of this encounter
--- OUTSIDE RECORDS SUMMARY | 2025-01-13 16:44 | XMS_ITS | Encounter Summary ---
Author Organization [employer] Address 75 [facility] 7t [place] [address] Care Team Providers Care Camera Tuning Engineer Name Role Phone Juany Rodriguez MD Primary Care Provider [phone] Reason for Visit * Reason Onset Date Comments Nurse Triage 08/20/2023 Encounter Details Date Type Department Care Team ([facility] st Contact Info) Description 08/20/2023 Telephone [facility] MEDICINE 230 [place] [address] Juany Rodriguez MD 505 [facility] [address] Nurse Triage Social History Tobacco Use Types [...] at 100pm today. Declines to come to [facility] at [facility]. No aptsavailable in [place] today will obtain insted visit with [facility] insurance present. Tish agrees to this plan [...] caller accepted this outcome Please contact Tish [phone] documented in this encounter Plan of Treatment Upcoming Encounters Date Type Department Care Team (Late st Contact Info) Description 03/09/2025 11:00 AM EDT Office Visit [facility] MED & PEDS 505 [place] [address] Juany Rodriguez MD 505 [facility] [address] documented as of this encounter Visit Diagnoses Not on filedocumented in this encounter Care Teams Camera Tuning Engineer Relationship Specialty Start Date End Date Juany Rodriguez MD 505 [place] [address] PCP - General Family Medicine 09/01/17 Dirk DENNISON 08/13/24 documented as of this encounter
--- OUTSIDE RECORDS SUMMARY | 2025-01-13 16:44 | XMS_ITS | Encounter Summary ---
Author Organization [employer] Address [address] [facility] [address] 7t [place] [address] Care Team Providers Care High Man Name Role Phone Junay Rodriguez MD Primary Care Provider [phone] Reason for Visit * Reason Comments Med Refill Encounter Details Date Type Department Care Team ([facility] Contact Info) Description 08/11/2024 Refill [facility] MED & PEDS 505 [facility] [place] [phone] Araceli Clifford MD 505 [place], [place] [phone] Social History Tobacco Use Types Packs/Day Years [...] Description 03/09/2025 11:00 AM EDT Office Visit [facility] MED & PEDS 505 [place] [address] Juany Rordiguez MD 505 [place] [address] documented as of this encounter Visit Diagnoses Not on filedocumented in this encounter Care Teams High Man Relationship Specialty Start Date End Date Juany Rodriguez MD 505 [place] [address] PCP - General Family Medicine 09/01/17 Dirk DENNISON 08/13/24 documented as of this encounter
--- OUTSIDE RECORDS SUMMARY | 2025-01-13 16:44 | XMS_ITS | Encounter Summary ---
Author Organization [employer] Address [address] [facility] [address] 7t [place] [address] Care Team Providers Care Marketing Secretary Name Role Phone Juany Rodriguez MD Primary Care Provider [phone] Reason for Visit * Reason Onset Date Comments Medication Question 05/28/2024 Encounter Details Date Type Department Care Team ([facility] st Contact Info) Description 05/28/2024 Telephone [facility] MEDICINE 230 [place] [address] Juany Rodriguez MD 505 [facility] [place] [phone] Medication Question Social History Tobacco Use Types [...] like refill as 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 Patient verbalized understanding and denied [...] Visit [facility] 505 [place] [address] Juany Rodriguez MD 505 [place] [address] documented as of this encounter Visit Diagnoses Not on filedocumented in this encounter Care Teams Marketing Secretary Relationship Specialty Start Date End Date Juany Rodriguez MD 505 [place] [address] PCP - General Family Medicine 09/01/17 Dirk DENNISON 08/13/24 documented as of this encounter
--- OUTSIDE RECORDS SUMMARY | 2025-01-13 16:44 | XMS_ITS | Encounter Summary ---
Author Organization [employer] Address 75 [facility] 7t [place] [address] Care Team Providers Care Wrist Hemmer Name Role Phone Juany Rodriguez MD Primary Care Provider [phone] Reason for Visit * Reason Comments Med Refill Encounter Details Date Type Department Care Team ([facility] st Contact Info) Description 12/28/2024 Refill [facility] CH[facility] MED & PEDS 505 [place], [place] [phone] Juany Rodriguez MD 505 [place], [place] [phone] Type 2 diabetes mellitus without complication, without long-term current use of insulin (CMS/HCC); Severe pulmonary hypertension (CMS/HCC) Social History Tobacco [...] Upcoming Encounters Date Type Department Care Team ([facility] st Contact Info) Description 03/09/2025 11:00 AM EDT Office Visit [facility] MED & PEDS 505 [place] [address] Juany Rodriguez MD 505 [place] [address] documented as of this encounter Visit Diagnoses Diagnosis Type 2 diabetes mellitus without complication, without long-term current use of insulin (CMS/HCC) Severe pulmonary hypertension (CMS/HCC) documented in this encounter Additional Health Concerns Assessment Noted Time PHQ-9 Depression Total Score: 8 12/01/19 25 11:36 AM EDT documented as of this encounter Care Teams Wrist Hemmer Relationship Specialty Start Date End Date Juany Rodriguez MD 505 [place] [address] PCP - General Family Medicine 09/01/17 Drik DENNISON 08/13/24 documented as of this encounter
--- OUTSIDE RECORDS SUMMARY | 2025-01-13 16:44 | XMS_ITS | Clinical Summary ---
Author Organization [facility] Address [address] [place] [address] Care Team Providers Care In Flight Refueling Operator Name Role Phone Unavailable Primary Care Provider [...] (two) times a day. 0 12/19/2022 Active Alfred-3 Fatty Acids (Fish Oil) 1000 MG CAPS [...] Health Maintenance Due Date Last Done Comments COVID-19 Vaccine (#1) 06/17/1946 Depression Screening 1957 [...]
--- OUTSIDE RECORDS SUMMARY | 2025-01-13 16:44 | XMS_ITS | Encounter Summary ---
Author Organization [employer] Address 75 [facility] 7t [place] [address] Care Team Providers Care Land Surveying Party Chief Name Role Phone Juany Rodriguez MD Primary Care Provider [phone] Reason for Visit * Reason Comments Med Refill Encounter Details Date Type Department Care Team ([facility] Contact Info) Description 03/18/2023 Refill [facility] MED & PEDS 505 [facility] [place] [place] [address] Juany Rodriguez MD 505 [place] [address] Severe pulmonary hypertension (CMS/HCC) Social History Tobacco [...] Upcoming Encounters Date Type Department Care Team ([facility] Contact Info) Description 03/09/2025 11:00 AM EDT Office Visit [facility] MED & PEDS 505 [place] [address] Juany Rodriguez MD 505 [place] [address] documented as of this encounter Visit Diagnoses Diagnosis Severe pulmonary hypertension (CMS/HCC) documented in this encounter Care Teams Land Surveying Party Chief Relationship Specialty Start Date End Date Juany Rodriguez MD 505 [place] [address] PCP - General Family Medicine 09/01/17 Dirk DENNISON 08/13/24 documented as of this encounter
--- OUTSIDE RECORDS SUMMARY | 2025-01-13 16:44 | XMS_ITS | Encounter Summary ---
Author Organization [employer] Address 75 [facility] 7t [place] [address] Care Team Providers Care Ui Ux Developer Name Role Phone Juany Rodriguez MD Primary Care Provider [phone] Encounter Details Date Type Department Care Team (Late st Contact Info) Description 03/27/2023 Orders Only [facility] CHC MED & PEDS 505 [facility] [place] [phone] Juany Rodriguez MD 505 [place], [place] [phone] Social History Tobacco Use Types Packs/Day Years [...] [facility] MED & PEDS 505 [place], [place] [phone] Juany Rodriguez MD 505 [place], [place] [phone] documented as of this encounter Visit Diagnoses Not on filedocumented in this encounter Care Teams Ui Ux Developer Relationship Specialty Start Date End Date Juany Rodriguez MD [address] [place] [address] PCP - General Family Medicine 09/01/17 Dirk DENNISON 08/13/24 documented as of this encounter
--- OUTSIDE RECORDS SUMMARY | 2025-01-13 16:44 | XMS_ITS | Encounter Summary ---
Author Organization [employer] Address 75 [facility] 7t [place] [address] Care Team Providers Care Airport Electrician Name Role Phone Juany Rodriguez MD Primary Care Provider [phone] Reason for Visit * Reason Onset Date Comments Nurse Triage 03/18/2023 Encounter Details Date Type Department Care Team (Late st Contact Info) Description 03/18/[address] [facility] MEDICINE [address] [place] [address] Juany Rodriguez MD 505 [facility] [place] [phone] Nurse Triage Social History Tobacco Use Types [...] 12:56 PM EDT Called pt daughter via [employer] hat liner [phone] [place]. No answer. Cleaning Team Member left message on pt. Voicemail to call back [facility] nurses at [phone]. RE: Asthma attack. Called alternate number and [...] acuity questions The caller accepted this outcome CROATIAN SEPFABIOLA documented in this encounter Plan of Treatment Upcoming Encounters Date Type Department Care Team (Late st Contact Info) Description 03/09/2025 11:00 AM EDT Office Visit [facility] CHC MED & PEDS [address] [place] [address] Juany Rodriguez MD 505 [place] [address] documented as of this encounter Visit Diagnoses Diagnosis Severe pulmonary hypertension (CMS/HCC) documented in this encounter Care Teams Airport Electrician Relationship Specialty Start Date End Date Juany Rodriguez MD 505 [place] [address] PCP - General Family Medicine 09/01/17 Dirk DENNISON 08/13/24 documented as of this encounter
--- OUTSIDE RECORDS SUMMARY | 2025-01-13 16:44 | XMS_ITS | Data Portability ---
Author Organization [email or web address] Address [address] [place] [address] Care Team Providers Care Endocrinology Specialist Name Role Phone [facility] Referring Provider [phone] [facility] Referring Provider Assessment Encounter Date Assessment Date Assessment LastModified by Organization Details LastModified Time 06/14/2022 06/14/2022 I have reviewed and agree with the Assessment and Plan as documented by the Math Tutor. I provided real -time medical direction via [...] access to them), it would reassure her. [email or web address] Not available 06/14/2022 18:40:48 Plan of Treatment Reminders Order Date Submit Date Provider Last Modified By Organization Details Last Modified Time Details Appointments None recorded. Lab glucose, fingerstick , blood 2021 [email or web address] 0 [facility], [address] [place] [address], [phone] 17:51:12 rapid SARS CoV 2 Ag, QL IA, respiratory specimen 2021 [email or web address] 0 [facility], [address] [place] [address], [phone] 17:51:12 Referral None recorded. Procedures None recorded. Surgeries None recorded. Imaging None recorded. Medication Orders ipratropium 0.5 mg-albutero l 3 mg (2.5 mg base)/3 mL nebulizatio n soln 2021 [email or web address] 0 Not available 17:21:20 albuterol sulfate 2.5 mg/3 mL (0.083 %) solution for nebulizatio n 2021 [facility], [address] [facility], [place], [place], [phone], 18:01:10 Patient TargetsNo targets recorded. Patient InstructionsNo instructions recorded. Reason for Referral None Reported. Results Created Date Observation Date Name Description Value Unit Range Abnormal Flag Note LastModifiedBy Organization Detail LastModifiedTime 06/14/2006/14/2022 gluco se, finge rstic k, blood Blood Glucose: mg/dl 249 Not Available [address], [phone] 06/14/2022 17:29:35 06/14/20 22 06/14/2022 rapid SARS CoV 2 Ag, QL IA, respi rator y speci men rapid SARS CoV 2 Ag, QL IA, respiratory specimen negati ve Not Available [facility] ed [address] [place] [address], [phone] 06/14/2022 17:27:03 Result Notes None recorded. Medical Equipment None Reported. Allergies Allergen ID Allergen Name Allergen Category Reaction Reaction Severity Criticality Documentation Date Start Date Code Code System Note Provider Name and Address Organization Details Recorded Time 1097 Product containin g penicilli n (product) medicatio n Not available Not available Not available 06/14/2022 50739 8001 SNOMED Not Available [employer] - production [...] Not Available Not Available No t Available [facility] spacer USE DIRECTED active Not [...] % 22 /min 98.3 [degF] 85 /min 58800.3 36 g 98.3 [degF] 85 /min 22 /min 95 % 95 % 150 mm[Hg] 79 mm[Hg] 150 mm[Hg] 79 mm[Hg] Not Available [employer] - production 18:41:26 Date Recorded Body weight Provider Name an d Address Organization Details Last Updated DateTime 06/14/2022 46329.63 g Aurelia Roberts [address] [place] [address],[address], [place], [phone], [facility] [employer] [facility] 06/14/2022 17:19:02 Social History None recorded. Functional Status None recorded. Mental Status None recorded. Family History Nothing Reported. Medical History No medical history recorded. Gynecological HistoryNo gynecological history recorded. Obstetrics History GPAL:G 0 P 0 0 0 0 Past Encounters Encounter ID Performer Location Encounter Start Date Encounter Closed Date Diagnosis/Indication Diagnosis SNOMED-CT Code Diagnosis ICD10 Code Diagnosis Note [id number] [facility] [address] [place] [phone] 06/14/2022 17:14:21 06/24/2022 13:48:28 Acute exacerbation of chronic obstructive pulmonary disease 498853683 J44.1 increase nebs to 4 x per day may go as high as q 4 hr- if needs more consider ER Type 2 melida betes mellitus 86173876 E11.9 Health Concerns Section Related Observation LastModified by Organization Detai ls LastModified Time None Recorded Concern Status LastModified by Organization Details LastModified Time None Recorded Advance Directives Directive None Recorded Payers Encounter Date Sequence Insurance Name Policy Number Policy Burton Covered Member ID Burton Member ID Guarantor Name 06/14/2022 1 [facility] - DOS PRIOR TO 2022 - DUAL ELIGIBLE (MEDICARE REPLACEMENT/ADV ANTAGE - HMO) Belen Stone [id number] Belen Stone Notes Date Note Type Note [...] .................. .................. .................. .................. .................. .................. ..... Math Tutor Note: Sent to evaluate pt c/o wheeze+sob. [...] pt takes BID nebs. BGL 249. [facility]ed [facility] who ordered duoneb and rapid covid test. Rapid covid -, reassessment of lung sounds post neb are clear with better air movement. [facility] orders nebs to be increased to QID, up to Q4 PRN. Pt has pulm appt next month that she was encouraged to keep. Pt to call PCP on Friday. Went over red flags and there were no further questions or concerns at this time. .................. .................. .................. .................. .................. .................. .................. ............... Disposition: Fulfilled Leanne Giron MD [address] [facility],[address], [place], [phone], [facility] 06/14/2022 23:24:03 OBGyn Episode No OBEpisode recorded.
--- OUTSIDE RECORDS SUMMARY | 2025-01-13 16:44 | XMS_ITS | Clinical Summary ---
Author Organization [employer] Address [address] [facility] [address] [place] [address] Care Team Providers Care Hammer Setter Name Role Phone Juany Rodriguez MD Primary Care Provider [phone] Allergies Active Allergy Reactions Criticality Noted Date [...] complication, without long-term current use of insulin ([facility]),Severe pulmonary hypertension ([facility]) TAKE ONE TABLET AT BEDTIME 90 tablet [...] complication, without long-term current use of insulin ([facility]) Use tid prn insulin injections 100 each Active pen needle 31G x 5 mm miscIndications: Type 2 diabetes mellitus without complication, without long-term current use of insulin ([facility]) Use as instructed tid 100 each 024 2024 Active glucose blood test stripIndications :Type 2 diabetes mellitus with hyperglycemia, with long-term current use of insulin ([facility]) 1 each by Other route 3 times daily. 100 each 024 Active albuterol (2.5 MG/3ML) 0.083% nebulizer solutionIndicati ons:Severe pulmonary hypertension ([facility]) INHALE ONE AMPULE USING A NEBULIZER EVERY 4 HOURS NEEDED 90 mL Active glucose blood (FREESTYLE LITE) test strip TEST BLOOD SUGAR 4 TIMES A DAY 100 strip Active sildenafil (Revatio) 20 MG tablet TAKE ONE TABLET THREE TIMES DAILY FOUR TO SIX HOURS APART 90 tablet 3 024 Active furosemide (Lasix) 20 MG tablet Take 1 tablet (20 mg) by mouth Once per day for 10 days. 10 tablet 024 Active cyanocobalamin (Vitamin B-12) 1000 MCG tablet TAKE ONE TABLET DAILY 90 tablet 024 Active hydrocortisone 1 % ointment APPLY TO THE AFFECTED AREA(S) TWICE DAILY IN THE MORNING AND AT BEDTIME NEEDED FOR ITCHING OR FOR PAIN RECTAL 28 g 11 024 Active furosemide (Lasix) 40 MG tabletIndication s:Type 2 diabetes mellitus without complications ([facility]),Pulmon hany hypertension, unspecified ([facility]) TAKE ONE TABLET TWICE DAILY 60 tablet 024 Active acetaminophen (Tylenol) 325 MG tabletIndication s:Pain TAKE TWO TABLETS EVERY 8 HOURS NEEDED FOR PAIN 180 tablet 1 025 Active apixaban (Eliquis) 5 MG tablet TAKE ONE TABLET TWICE DAILY 60 tablet 3 025 Active amLODIPine (Norvasc) 10 MG tablet TAKE ONE TABLET DAILY 30 tablet 3 025 Active docusate sodium (Colace) 100 MG capsule TAKE ONE CAPSULE TWICE DAILY NEEDED FOR CONSTIPATION 180 capsule 025 Active cholecalciferol VITAMIN D (Vitamin D-3) 50 MCG (2000 UT) capsule TAKE ONE CAPSULE EVERY MORNING 90 capsule 025 Active Trelegy Ellipta 100-62.5-25 MCG/ACT aerosol powder INHALE ONE PUFF EVERY MORNING, RINSE MOUTH AFTER USE 28 each 11 025 Active Witch Stacey (Medi-Pads) 50 % pads APPLY TO THE AFFECTED AREA(S) NEEDED FOR DISCOMFORT 100 each 5 025 Active Blood Pressure Monitoring (Comfort Touch BP Cuff/Medium) [facility] Needs another BP cuff please to check BP 1 each 025 Active metoprolol tartrate (Lopressor) 50 MG tablet TAKE ONE TABLET TWICE DAILY 60 tablet 3 025 Active senna (Senokot) 8.6 MG tablet TAKE TWO TABLETS DAILY NEEDED FOR CONSTIPATION 60 tablet 3 025 Active simethicone (Simethicone Ultra Strength) 180 MG capsuleIndicatio ns:Type 2 diabetes mellitus without complication, without long-term current use of insulin (CMS/HCC),Severe pulmonary hypertension (CMS/HCC) TAKE TWO CAPSULES THREE TIMES DAILY 180 capsule 3 025 Active meclizine (Antivert) 25 MG tablet TAKE ONE TABLET THREE TIMES DAILY IN THE MORNING, AT NOON, AND AT BEDTIME NEEDED FOR DIZZINESS 30 tablet Active simethicone (Simethicone Ultra Strength) 180 MG capsuleIndicatio ns:Type 2 diabetes mellitus without complication, without long-term current use of insulin (CMS/HCC),Severe pulmonary hypertension (CMS/HCC) TAKE TWO CAPSULES THREE TIMES DAILY 180 capsule 3 024 2024 Discontinued senna (Senokot) 8.6 MG tablet TAKE TWO TABLETS DAILY NEEDED FOR CONSTIPATION 60 tablet 3 024 2024 Discontinued meclizine (Antivert) 25 MG tablet TAKE ONE TABLET THREE TIMES DAILY IN THE MORNING, AT NOON, AND AT BEDTIME NEEDED FOR DIZZINESS 30 tablet 025 2024 Discontinued(R eorder (will not trigger notification to Pharmacy)) Active Problems Problem Noted Date Diagnosed Date Acute on chronic diastolic (congestive) heart fa ilure 11/30/2024 PAF (paroxysmal atrial fibrillation) 11/30/2024 Chronic right shoulder pain 03/19/2024 Assessment & [...] Encounters Date Type Department Care Team Description 01/03/2025 Refill [facility] MEDICINE [address] [place] [address] Junay Rodriguez MD 12/28/2024 Refill [facility] MED & PEDS [address] [place] [address] Juany Rodriguez MD Type 2 diabetes mellitus without complication, without long-term current use of insulin ([facility]); Severe pulmonary hypertension ([facility]/HCC) 12/09/2024 Telephone [facility] MEDICINE [address] [place] [address] Juany Rodriguez MD Durable Medical Equipment 12/03/2024 Telephone [facility] MEDICINE [address] [place] [address] Juany Rodriguez MD Med Refill 12/03/2024 Refill [facility] MED[facility] [address] [place] [address] Juany Rodriguez MD 11/30/2024 11:30 AM EDT Office Visit [facility] [address] [place] [address] Juany Rodriguez MD Acute on chronic diastolic (congestive) heart failure ([facility]/HCC) (Primary Dx); Type 2 diabetes mellitus without complication, without long-term current use of insulin ([facility]); Dietary counseling; Exercise counseling; PAF (paroxysmal atrial fibrillation) ([facility]); Primary degenerative dementia of the Alzheimer type, senile onset ([facility]); Severe pulmonary hypertension ([facility]); Anemia in chronic kidney disease, on chronic dialysis ([facility]) 11/30/2024 Travel 11/29/2024 Refill [facility] [address] [place] [address] Juany Rodriguez MD 11/25/2024 Refill [facility] [address] [place] [address] Juany Rodriguez MD 11/18/2024 Refill [facility] [address] [place] [address] DuronQuentin Hensley MD 11/05/2024 Refill [facility] MEDICINE [address] [place] [address] Juany Rodriguez MD 11/01/2024 Refill [facility] [address] [place] [address] Juany Rodriguez MD from Last 3 Months [...] Description 03/09/2025 11:00 AM EDT Office Visit [facility] MED & PEDS [address] [facility] [place] [address] Juany Rodriguez MD [address] [place] [address] Health Maintenance Due Date Last Done Comments Eye Exam 1955 Zoster Vaccines (2 of 2) 08/03/2019 06/08/2019, [...] 11/30/2025 11/30/2024 Depression Screening 11/30/2025 11/30/2024, 12/01/19 25 Tobacco Screening 11/30/2025 11/30/2024 DTaP/Tdap/Td Vaccines (2 [...] complication, without long-term current use of insulin ([facility]) POCT GLUCOSE Routine 11/30/2024 11:37 AM EDT Type 2 diabetes mellitus without complication, without long-term current use of insulin ([facility]) LIPID PANEL, STANDARD Routine 07/28/2024 12:33 PM [...] 12:33 PM EST) Triglycerides 52 <150 mg/dL [facility] Comment:Desirable Triglyceri de: less than 150 mg/dLBorderline High Triglyceride 150-199 mg/dLHigh Triglyceride: 200-499 mg/dLVery High Triglyceride: greater than or equal to 5OO mg/dL Cholesterol 177 <200 mg/dL [facility] Comment:Desirable Cholestero l: less than 200 mg/dLBorderline High Cholesterol: 200-239 mg/dLHigh Cholesterol: greater than 239 mg/dL LDL Cholesterol Calculated 115(H) <100 mg/dL [facility] Comment:Desirable LDL: less than 100 mg/dLNear Optimal/Above Optimal LDL: 110- 129 mg/dLBorderline High LDL: 130-159 mg/dLHigh LDL: 160-189 mg/dLVery High LDL: greater than or equal to 190 mg/dL HDL Cholesterol 52 >40 mg/dL [facility] Comment:Desirable HDL: great er than 40 mg/dL Note: This HDL assay may give artificially low results in patients with liver disease. Blood Venous blood specimen / Unknown 07/28/2024 12:33 PM EST 07/28/2024 2:18 PM EST us Juany Rodriguez MD LAB BLOOD ORDERABLES Final Re sult [facility] [address] [place] [phone] from Last 3 Months or Most Recently Relevant to Health Maintenance Insurance [facility] Advance Directives Documents on File Type Date Recorded Patient Bookie Expl anation Advance Directives and Livin g Will 09/20/2024 2:37 PM HCP Care Teams Hammer Setter Relationship Specialty Start Date End Date Juany Rodriguez MD [address] [facility] [place] [address] PCP - General Family Medicine 09/01/17 Dirk DENNISON 08/13/24
--- OUTSIDE RECORDS SUMMARY | 2025-01-13 16:44 | XMS_ITS | Encounter Summary ---
Author Organization [employer] Address [address] [facility] [address] [place] [address] Care Team Providers Care Cullet Trucker Name Role Phone Juany Rodriguez MD Primary Care Provider [phone] Reason for Visit * Reason Onset Date Comments Appointment Request 09/09/2024 Encounter Details Date Type Department Care Team ([facility] st Contact Info) Description 09/09/2024 Telephone [facility] MEDICINE [address] [place] [address] Juany Rodriguez MD [address] [facility] [place] [phone] Appointment Request Social History Tobacco Use Types [...] from PCP to consult pt availability, callback [phone] documented in this encounter Plan of Treatment Upcoming Encounters Date Type Department Care Team (Late st Contact Info) Description 03/09/2025 11:00 AM EDT Office Visit [facility] MED & PEDS [address] [place] [address] Juany Rodriguez MD [address] [place] [address] documented as of this encounter Visit Diagnoses Not on filedocumented in this encounter Care Teams Cullet Trucker Relationship Specialty Start Date End Date Juany Rodriguez MD [address] [place] [address] PCP - General Family Medicine 09/01/17 Dirk DENNISON 08/13/24 documented as of this encounter
--- OUTSIDE RECORDS SUMMARY | 2025-01-13 16:44 | XMS_ITS | Encounter Summary ---
Author Organization [employer] Address [address] [facility] [address] [place] [address] Care Team Providers Care Wind Turbine Mechanical Engineer Name Role Phone Juany Rodriguez MD Primary Care Provider [phone] Reason for Visit * Reason Onset Date Comments Paperwork/Forms 07/08/2023 Encounter Details Date Type Department Care Team ([facility] st Contact Info) Description 07/08/2023 Telephone [facility] [address] [place] [address] Juany Rodriguez MD [address] [place], [place] [phone] Paperwork/Forms Social History Tobacco Use Types Packs/Day [...] Miscellaneous Notes * Telephone Encounter - Maude Gutierrez LPN - 07/11/2023 9:58 AM EDT Pa [...] Description 03/09/2025 11:00 AM EDT Office Visit [facility] MED & PEDS [address] [place] [address] Juany Rodriguez MD [address] [place] [address] documented as of this encounter Visit Diagnoses Not on filedocumented in this encounter Care Teams Wind Turbine Mechanical Engineer Relationship Specialty Start Date End Date Juany Rodriguez MD [address] [place] [address] PCP - General Family Medicine 09/01/17 Dirk DENNISON 08/13/24 documented as of this encounter
--- OUTSIDE RECORDS SUMMARY | 2025-01-13 16:45 | XMS_ITS | Encounter Summary ---
Author Organization [employer] Address [address] [facility] [address] [place] [address] Care Team Providers Care Personnel Consultant Name Role Phone Juany Rodriguez MD Primary Care Provider [phone] Reason for Visit * Reason Comments Med Refill Encounter Details Date Type Department Care Team ([facility] st Contact Info) Description 08/11/2024 Refill [facility] MED & PEDS [address] [place], [place] [phone] Juany Rodriguez MD [address] [facility], [place] [phone] Other chronic gastritis without hemorrhage Social History [...] Upcoming Encounters Date Type Department Care Team ([facility] st Contact Info) Description 03/09/2025 11:00 AM EDT Office Visit [facility] MED & PEDS [address] [place] [address] Juany Rodriguez MD [address] [facility] [place] [address] documented as of this encounter Visit Diagnoses Diagnosis Other chronic gastritis without hemorrhage documented in this encounter Care Teams Personnel Consultant Relationship Specialty Start Date End Date Juany Rodriguez MD [address] [place] [address] PCP - General Family Medicine 09/01/17 Dirk DENNISON 08/13/24 documented as of this encounter
== END 2025-01-13 16:23 | disposition home or self-care (01) ==
LOC: HO.HCS 14:14
PROVIDERS: PCP Pediatrics; Visit Provider Nurse Practitioner Family
DX: I50.32 Chronic diastolic (congestive) heart failure (principal); I48.0 Paroxysmal atrial fibrillation; R07.89 Other chest pain; I27.20 Pulmonary hypertension, unspecified; G47.33 Obstructive sleep apnea (adult) (pediatric); I10 Essential (primary) hypertension
CPT/HCPCS: 99214; G2211

== ENCOUNTER → 2025-01-13 14:13 | Outpatient (BNVA) | payer OTHER, SELFPAY | PROVIDERS: PCP Pediatrics; Visit Provider Nurse Practitioner Family | DX: I27.20 Pulmonary hypertension, unspecified (principal); I48.0 Paroxysmal atrial fibrillation; I42.9 Cardiomyopathy, unspecified; I11.0 Hypertensive heart disease with heart failure; I50.32 Chronic diastolic (congestive) heart failure; R07.89 Other chest pain; G47.33 Obstructive sleep apnea (adult) (pediatric) | CPT/HCPCS: 99212 ==

== ENCOUNTER → 2025-01-20 | Outpatient (BNV) | payer OTHER, SELFPAY | PROVIDERS: PCP Pediatrics; Visit Provider Internal Medicine Hypertension Specialist | DX: N18.6 End stage renal disease (principal) | CPT/HCPCS: 90962 ==

== ENCOUNTER 2025-01-25 15:32 | Outpatient (AMB) | payer OTHER, SELFPAY ==
[2025-01-25 15:33] VITALS: BP 112/52; PULSE 69; O2SAT 100; BMI 35.0
--- NOTE | 2025-01-25 15:33 | A.OFFVIS_ITS ---
Vital Signs 01/25/25 15:33 Height 5 ft 1 in Weight 185 lb 3.013 oz BMI 35.0 BP 112/52 L Blood Pressure Location Rt brachial Position Sitting Pulse 69 Pulse Source Pulse Oximeter Pulse Oximetry (%) 100 Oxygen Delivery Method Room Air Intake Visit Reasons: ANKIT/sinusitis Allergies faviola [FAVIOLA] Adverse Reaction (Intermediate, Verified 01/25/25 15:37) NAUSEA & VOMITING Penicillins [PENICILLINS] Adverse Reaction (Unknown, Verified 01/25/25 15:37) NAUSEA & VOMITING [facility] Allergy (Unknown, Uncoded 01/13/25 15:34) NAUSEA & VOMITING SARDINES Adverse Reaction (Intermediate, Uncoded 01/13/25 15:34) NAUSEA & VOMITING HPI Comments Details: The patient is a 79-year-old woman with a known history of cardiomyopathy and diastolic dysfunction. She continues to have significant shortness of breath. Moderate to severe. Today she did come in with her daughter but we did have to get her wheelchair to go back to the car because her shortness of breath. The patient also feels very fatigued. She has daytime drowsiness and sleeps throughout the day. She typically sleeps on the sofa because she feels she is more comfortable when she is has not choked up so much. Her Vashon score is elevated 16/24. The patient has not had a sleep study. Will have to request a home sleep study at this time. In the meantime the patient had an echocardiogram and I did review the family. It appears that she has a severely dilated right ventricle and severe pulmonary hypertension. In part this is likely due to her diastolic dysfunction. However, additional testing is warranted. Will go ahead and request blood work in addition to a V/Q scan to rule out thromboembolic disease and also a sleep study. the patient does take Eliquis for anticoagulation. However, chronic thromboembolic disease is still in differential. 08/08/2023 the patient is here for a pulmonary follow-up visit. The patient is very groggy this morning. Her daughter's states that she is been sleeping a lot during the daytime. The patient feels tired right now. She has been using her respiratory medications. In addition to that she has been using her positive airway pressure therapy. She is reluctant to use it but her daughter helps her with the and she does use it for more than 4 hours a night. She continues with diuresis. Will go ahead and request additional blood work in addition to a blood gas to assess her CO2 to make sure that she is not developing hypercapnia. 02/09/2024 the patient is here for a pulmonary follow-up visit. She is complaining of significant sinus congestion and nasal congestion. She has a hard time using her CPAP because of the significant sinus and nasal passage obstruction. She has been sick now for about 3 days. The patient also has been having significant allergies. She has been taking allergy medications [id number]. She also has diabetes so therefore prednisone it is difficult for her to tolerate. I did provide her with a different mask see if she did tolerate the CPAP a little better once her nasal congestion this better, N30i small. Hopefully she tolerates this better. In addition to that patient be using the Afrin nasal spray. She will mixing picker tender some in the pharmacy. She can also start doxycycline to treat her for sinusitis. 01/25/2025 the patient is here for a pulmonary follow-up visit. The patient has been weak and also short of breath. She has multiple comorbidities though. She has not been using her CPAP. The patient does have significant shortness of breath even with minimal activity. She does have a walker that she uses. During the visit we did go for walking oximetry the patient did not desaturate. Pulse ox actually 97%. Although she was visibly dyspneic 03/31. This was with minimal activity. Will go ahead and request an overnight oximetry on room air to see if she is a candidate for oxygen at nighttime. Her now she did start dialysis in that looks like she is going to get a graft or fistula placement on the right upper extremity for her further dialysis treatments. The patient does have some wheezing. She is on Trelegy 100. Will go ahead and increase that to the 200. She also continue with her albuterol as needed. She has been on the sildenafil for the pulmonary hypertension. Will go ahead and request an echocardiogram as well. Will follow-up in 4-6 months if she has any issues prior to that she will call for an earlier assessment. [facility] Medical History Chronic kidney disease Shortness of breath Chest discomfort Exocrine pancreatic insufficiency ANKIT (obstructive sleep apnea) Asthma Pulmonary hypertension Vasovagal syncope Type 2 diabetes mellitus with unspecified complications Essential hypertension PAF (paroxysmal atrial fibrillation) Cardiomyopathy Surgical History No pertinent past surgical history Family History Father No problems noted. Mother No problems noted. Social History Household Members: Family Housing: House Do you presently have visiting nurse or other home services: Yes (cutting inspector) Alcohol intake: never Patient Tobacco Use Status: Never used Tobacco service: No Review of Systems Const Denies chills, Reports fatigue, Denies fever(s) and Reports weight gain ENT Denies dizziness Card Denies chest pain, Denies leg edema, Denies lightheadedness, Denies palpitations, Reports dyspnea, Reports dyspnea on exertion, Denies orthopnea and Denies other Resp Reports cough, Reports dyspnea, Reports dyspnea on exertion and Reports wheezing GI Denies hematochezia and Denies change in stool character Reports as per HPI Musc Reports abnormal gait, Reports myalgias, Reports atrophy, Reports muscle weaknes s, Denies numbness, Denies radiating pain into limb and Denies tingling Neuro Reports abnormal gait, Denies dizziness, Denies numbness and Denies tingling Endo Reports fatigue and Denies palpitations Gilberto/Lymph Denies lymphadenopathy Aller/Immun Reports wheezing Physical Exam Vital Signs: Last Vital Signs Pulse 69 01/25/25 15:33 BP 112/52 L 01/25/25 15:33 Pulse Ox 100 01/25/25 15:33 Oxygen Delivery Method Room Air 01/25/25 15:33 BMI result Body Mass Index 35.0 Const General: comfortable and tired appearing Orientation/consciousness: patient oriented x3 HEENT Other: Unremarkable Head: Yes normal to inspection Eyes General: appearance normal, both eyes and all related structures Neck Neck: Yes normal visual inspection Chest Chest palpation & inspection: normal inspection of the chest Resp Effort & Inspection: normal respiratory effort Auscultation: no crackles, no wheezes and diminished lung sounds Cardio Jugular venous distension: no JVD Palpation: normal PMI Heart sounds: S1 normal heart sound present, S2 normal heart sound present, no gallops, no murmurs and no rubs GI Palpation (GI): Soft to palpation Back/Spine/Pelvis Other: unremarkable Skin General skin exam: no rashes or lesions noted Neuro General: patient oriented x3 Extrem General: Yes no clubbing, cyanosis or edema Psych Mental Status: mental status grossly normal Assessment & Plan Assessment & Plan (1) Pulmonary hypertension: Code(s): I27.20 - Pulmonary hypertension, unspecified Category: Medical (2) ANKIT (obstructive sleep apnea): Code(s): G47.33 - Obstructive sleep apnea (adult) (pediatric) Category: Medical (3) Asthma: Code(s): J45.909 - Unspecified asthma, uncomplicated Category: Medical Qualifiers: Asthma complication type: uncomplicated Asthma persistence: persistent Asthma severity: moderate Qualified Code(s): J45.40 - Moderate persistent asthma, uncomplicated (4) Shortness of breath: Code(s): R06.02 - Shortness of breath Category: Medical (5) Chronic diastolic (congestive) heart failure: Code(s): I50.32 - Chronic diastolic (congestive) heart failure Category: Medical Plan continue APAP, trial N30i mask continue Sildanefil continue diuresis as tolerated ECHO Increase Trelegy 100->200mcg inhalation daily Overnight oximetry on RA follow-up in 6 months Orders: Orders CA echo transthoracic complete Today I27.20 - Pulmonary hypertension, unspecified, I50.32 - Chronic diastolic (congestive) heart failure Overnight Pulse Oximetry Today I27.20 - Pulmonary hypertension, unspecified, I50.32 - Chronic diastolic (congestive) heart failure Medications: New hfedupcbhsn-zlumcjwuk-cwyatsro 200-62.5-25 mcg (Trelegy Ellipta) 1 inh inhalation DAILY 60 ea 12RF 30 days Changed From albuterol sulfate 90 mcg/actuation (Ventolin HFA) 2 puffs inhalation Q4H PRN Wheezing/SOB To albuterol sulfate 90 mcg/actuation (Ventolin HFA) 2 puffs inhalation Q4H PRN 8.5 grams 7RF Wheezing/SOB 30 days Discontinued byigycqmtpn-xywfuvyhe-lztbnjgw 100-62.5-25 mcg (Trelegy Ellipta) Discontinued Reason: Duplicate 1 inh inhalation DAILY 30 days 60 ea 11RF I27.20 - Pulmonary hypertension, unspecified, J44.9 - Chronic obstructive pulmonary disease, unspecified Coding Level of Care Code Est Pt Level 4 (79021) Complex EM visit Add On G2211 Diagnoses Pulmonary hypertension I27.20 ANKIT (obstructive sleep apnea) G47.33 Moderate persistent asthma without complication J45.40 Asthma complication type: uncomplicated Asthma persistence: persistent Asthma severity: moderate Shortness of breath R06.02 Chronic diastolic (congestive) heart failure I50.32 Time Spent (min) 17
--- OUTSIDE RECORDS SUMMARY | 2025-01-25 16:40 | XMS_ITS | Clinical Summary ---
Author Organization [employer] Address [address] [place] [address] Care Team Providers Care Induction Coordination Power Engineer Name Role Phone Juany Rodriguez MD Primary Care Provider [phone] Allergies Active Allergy Reactions Criticality Noted Date [...] complication, without long-term current use of insulin ([facility]),Severe pulmonary hypertension (CMS/[facility]) TAKE ONE TABLET AT BEDTIME 90 tablet [...] be used with Nebulizer 1 kit 2 Active insulin aspart FlexPen (NovoLOG) 100 UNIT/ML pen Give 2 units subcutaneously if sugars 150-200, 4 units if 201-250, 6 units if 251-300, 8 units if 301-350, 10 units if 350-400.Call MD if BS above 400 range 1 each Active Alcohol Swabs (Alcohol Prep) padsIndications: Type 2 diabetes mellitus without complication, without long-term current use of insulin ([facility]) Use tid prn insulin injections 100 each Active pen needle 31G x 5 mm miscIndications: Type 2 diabetes mellitus without complication, without long-term current use of insulin (CMS/HCC) Use as instructed tid 100 each 024 2024 Active glucose blood test stripIndications :Type 2 diabetes mellitus with hyperglycemia, with long-term current use of insulin ([facility]) 1 each by Other route 3 times daily. 100 each 024 Active albuterol (2.5 MG/3ML) 0.083% nebulizer solutionIndicati ons:Severe pulmonary hypertension ([facility]) INHALE ONE AMPULE USING A NEBULIZER EVERY 4 HOURS NEEDED 90 mL 3 Active glucose blood (FREESTYLE LITE) test strip TEST BLOOD SUGAR 4 TIMES A DAY 100 strip Active furosemide (Lasix) 20 MG tablet Take 1 tablet (20 mg) by mouth Once per day for 10 days. 10 tablet 024 Active cyanocobalamin (Vitamin B-12) 1000 MCG tablet TAKE ONE TABLET DAILY 90 tablet Active hydrocortisone 1 % ointment APPLY TO THE AFFECTED AREA(S) TWICE DAILY IN THE MORNING AND AT BEDTIME NEEDED FOR ITCHING OR FOR PAIN RECTAL 28 g 024 Active furosemide (Lasix) 40 MG tabletIndication s:Type 2 diabetes mellitus without complications ([facility]),Pulmon hany hypertension, unspecified ([facility]) TAKE ONE TABLET TWICE DAILY 60 tablet 024 Active apixaban (Eliquis) 5 MG tablet TAKE ONE TABLET TWICE DAILY 60 tablet 3 025 Active amLODIPine (Norvasc) 10 MG tablet TAKE ONE TABLET DAILY 30 tablet 3 Active docusate sodium (Colace) 100 MG capsule TAKE ONE CAPSULE TWICE DAILY NEEDED FOR CONSTIPATION 180 capsule 025 Active cholecalciferol VITAMIN D (Vitamin D-3) 50 MCG (2000 UT) capsule TAKE ONE CAPSULE EVERY MORNING 90 capsule 025 Active Trelegy Ellipta 100-62.5-25 MCG/ACT aerosol powder INHALE ONE PUFF EVERY MORNING, RINSE MOUTH AFTER USE 28 each 025 Active Witch Stacey (Medi-Pads) 50 % pads APPLY TO THE AFFECTED AREA(S) NEEDED FOR DISCOMFORT 100 each 5 025 Active Blood Pressure Monitoring (Comfort Touch BP Cuff/Medium) [facility] Needs another BP cuff please to check [...] BEDTIME NEEDED FOR DIZZINESS 30 tablet 025 Active sildenafil (Revatio) 20 MG tablet TAKE ONE TABLET THREE TIMES DAILY FOUR TO SIX HOURS APART 90 tablet 3 025 Active acetaminophen (Tylenol) 325 MG tabletIndication s:Pain TAKE TWO TABLETS BY MOUTH EVERY EIGHT HOURS NEEDED FOR PAIN 180 tablet 1 025 Active sildenafil (Revatio) 20 MG tablet TAKE ONE TABLET THREE TIMES DAILY FOUR TO SIX HOURS APART 90 tablet 3 024 2024 Discontinued(R eorder (will not trigger notification to Pharmacy)) simethicone (Simethicone Ultra Strength) 180 MG capsuleIndicatio ns:Type 2 diabetes mellitus without complication, without long-term current use of insulin (CMS/HCC),Severe pulmonary hypertension (CMS/HCC) TAKE TWO CAPSULES THREE TIMES DAILY 180 capsule 3 024 2024 Discontinued senna (Senokot) 8.6 MG tablet TAKE TWO TABLETS DAILY NEEDED FOR CONSTIPATION 60 tablet 3 024 2024 Discontinued acetaminophen (Tylenol) 325 MG tabletIndication s:Pain TAKE TWO TABLETS EVERY 8 HOURS NEEDED FOR PAIN 180 tablet 1 025 2024 Discontinued meclizine (Antivert) 25 MG tablet [...] Encounters Date Type Department Care Team Description 01/22/2025 Refill [facility] [address] [place] [address] Juany Rodriguez MD Pain 01/17/2025 Refill C MEDICINE [address] [place] [address] Juany Rodriguez MD 01/03/2025 Refill C MEDICINE [address] [place] [address] Juany Rodriguez MD 12/28/2024 Refill [facility] [address] [place] [address] Juany Rodriguez MD Type 2 diabetes mellitus without complication, without long-term current use of insulin (CMS/HCC); Severe pulmonary hypertension (CMS/HCC) 12/09/2024 Telephone [facility] [address] [place] [address] Juany Rodriguez MD Durable Medical Equipment 12/03/2024 Telephone [facility] [address] [place] [address] Juany Rodriguez MD Med Refill 12/03/2024 Refill [facility] [address] [place] [address] Juany Rodriguez MD 11/30/2024 11:30 AM EDT Office Visit [facility] [address] [place] [address] Juany Rodriguez MD Acute on chronic diastolic (congestive) heart failure (CMS/HCC) (Primary Dx); Type 2 diabetes mellitus without complication, without long-term current use of insulin (CMS/HCC); Dietary counseling; Exercise counseling; PAF (paroxysmal atrial fibrillation) (CMS/HCC); Primary degenerative dementia of the Alzheimer type, senile onset (CMS/HCC); Severe pulmonary hypertension (CMS/HCC); Anemia in chronic kidney disease, on chronic dialysis (CMS/HCC) 11/30/2024 Travel 11/29/2024 Refill [facility] [address] [place] [address] Juany Rodriguez MD 11/25/2024 Refill [facility] [address] [place] [address] Juany Rodriguez MD 11/18/2024 Refill [facility] [address] [place] [address] Quentin Ruelas MD 11/05/2024 Refill [facility] [address] [place] [address] Juany Rodriguez MD 11/01/2024 Refill [facility] [address] [place], [place] [phone] Juany Rodriguez MD from Last 3 Months [...] [facility] [address] [place] [address] Juany Rodriguez MD [address] [place] [address] Health Maintenance Due Date Last Done Comments [...] complication, without long-term current use of insulin (CMS/[facility]) POCT GLUCOSE Routine 11/30/2024 11:37 AM EDT Type 2 diabetes mellitus without complication, without long-term current use of insulin (CMS/[facility]) LIPID PANEL, STANDARD Routine 07/28/2024 12:33 PM EST Dyslipidemia from Last 3 Months or Most Recently Relevant to Health Maintenance Results * (ABNORMAL) POCT HGB A1C (11/30/2024 11:59 AM EDT) Hemoglobin A1C 6.1(A) 4.0 - 6.0 % QC Media Lot # [id number] Lot# Expiration Date Blood 11/30/2024 11:5 9 AM EDT us Juany Rodriguez MD POINT OF CARE TEST ENTER/EDIT ORDERABLES Final Result * (ABNORMAL) POCT Glucose (11/30/2024 11:37 AM EDT) Glucose Blood, POC 214(A) 60 - 200 mg/dL QC Media Lot # [id number] Lot# Expiration Date Blood Capillary blood specimen / Unknown 11/30/2024 11:37 AM EDT us Juany Rodriguez MD POINT OF CARE TEST ENTER/EDIT ORDERABLES Final Result * (ABNORMAL) Lipid Panel, Standard (07/28/2024 12:33 PM EST) Triglycerides 52 <150 mg/dL [facility] Comment:Desirable Triglyceri de: less than 150 mg/dLBorderline High Triglyceride 150-199 mg/dLHigh Triglyceride: 200-499 mg/dLVery High Triglyceride: greater than or equal to 5OO mg/dL Cholesterol 177 <200 mg/dL [facility] Comment:Desirable Cholestero l: less than 200 mg/dLBorderline High Cholesterol: 200-239 mg/dLHigh Cholesterol: greater than 239 mg/dL LDL Cholesterol Calculated 115(H) <100 mg/dL [facility] Comment:Desirable LDL: less than 100 mg/dLNear Optimal/Above Optimal LDL: 110- 129 mg/dLBorderline High LDL: 130-159 mg/dLHigh LDL: 160-189 mg/dLVery High LDL: greater than or equal to 190 mg/dL HDL Cholesterol 52 >40 mg/dL [facility] Comment:Desirable HDL: great er than 40 mg/dL Note: This HDL assay may give artificially low results in patients with liver disease. Blood Venous blood specimen / Unknown 07/28/2024 12:33 PM EST 07/28/2024 2:18 PM EST us Juany Rodriguez MD LAB BLOOD ORDERABLES Final Re sult [facility] [address] [place] [address] [phone] from Last 3 Months or Most Recently Relevant to Health Maintenance Insurance [facility] OPT[employer] (HMO D-SNP) Advance Directives Documents on File Type Date Recorded Patient Specimen Collector Expl anation Advance Directives and Livin g Will 09/20/2024 2:37 PM HCP Care Teams Induction Coordination Power Engineer Relationship Specialty Start Date End Date Juany Rodriguze MD [address] [facility] [facility] [place] [address] PCP - General Family Medicine 09/01/17 [place] [facility] 08/13/24
--- OUTSIDE RECORDS SUMMARY | 2025-01-25 16:40 | XMS_ITS | Encounter Summary ---
Author Organization [employer] Address [address] [place] [address] Care Team Providers Care Suspender Cutter Name Role Phone Juany Rodriguez MD Primary Care Provider [phone] Reason for Referral * Medications - Closed Specialty Diagnoses / Procedures Referred By Conthermelindo t Referred To Contact Diagnoses Type 2 diabetes mellitus with hyperglycemia, with long-term current use of insulin (CMS/HCC) Rashmi Marquez MD [address] [place] [address] Phone: tel: fax: Referral ID Status Reason Start Date Expiration Date Visits Re quested Visits Authorized [id number] Closed 1 1 Encounter Details Date Type Department Care Team (Late st Contact Info) Description 05/14/2024 Orders Only [facility] [address] [place] [phone] Rashmi Marquez MD [address] [place] [address] Type 2 diabetes mellitus with hyperglycemia, with [...] Description 03/09/2025 11:00 AM EDT Office Visit [facility] [address] [place] [address] Juany Rodriguez MD [address] [place] [address] documented as of this encounter Visit Diagnoses Diagnosis Type 2 diabetes mellitus with hyperglycemia, with long-term current use of insulin ([facility])- Primary documented in this encounter Care Teams Suspender Cutter Relationship Specialty Start Date End Date Juany Rodriguez MD [address] [place] [address] PCP - General Family Medicine 09/01/17 Dirk DENNISON 08/13/24 documented as of this encounter
--- OUTSIDE RECORDS SUMMARY | 2025-01-25 16:40 | XMS_ITS | Encounter Summary ---
Author Organization [employer] Address [address] [place] [address] Care Team Providers Care Refractory Products Supervisor Name Role Phone Juany Rodriguez MD Primary Care Provider [phone] Reason for Visit * Reason Onset Date Comments Appointment Request 09/09/2024 Encounter Details Date Type Department Care Team ([facility] st Contact Info) Description 09/09/2024 Telephone [facility] [address] [place] [address] Juany Rodriguez MD [address] [place], [place] [phone] Appointment Request Social History Tobacco Use Types [...] from PCP to consult pt availability, callback [phone] documented in this encounter Plan of Treatment Upcoming Encounters Date Type Department Care Team (Late st Contact Info) Description 03/09/2025 11:00 AM EDT Office Visit [facility] [address] [place] [address] Juany Rodriguez MD [address] [place] [address] documented as of this encounter Visit Diagnoses Not on filedocumented in this encounter Care Teams Refractory Products Supervisor Relationship Specialty Start Date End Date Juany Rodriguez MD [address] [place] [address] PCP - General Family Medicine 09/01/17 Dirk DENNISON 08/13/24 documented as of this encounter
--- OUTSIDE RECORDS SUMMARY | 2025-01-25 16:40 | XMS_ITS | Clinical Summary ---
Author Organization [facility] [address] [facility] Address [address] [place] [address] Phone Care Team Providers Care Imcu Nurse Name Role Phone Juany Rodriguez MD Primary Care Provider [phone] Allergies Active Allergy Reactions Criticality Noted Date Comments Penicillin G Hives 01/25/2025 Medications ascorbic acid (VITAMIN C) 500 mg tablet Take 1 tablet (500 mg total) by mouth 1 (one) time each day. Active acetaminophen (TYLENOL) 325 mg tablet TAKE TWO TABLETS EVERY 8 HOURS NEEDED FOR PAIN Active Ventolin HFA 90 mcg/actuation inhaler every 4 (four) hours if needed. Active Alcohol Prep Pads pads, medicated 025 Active alendronate (FOSAMAX) 70 mg tablet Take 1 tablet (70 mg total) by mouth every 7 (seven) days. 023 Active amLODIPine (NORVASC) 10 mg tablet Take 1 tablet (10 mg total) by mouth at bedtime. 020 Active ammonium lactate (LAC-HYDRIN) 12 % lotion use 2 x day 020 Active Eliquis 2.5 mg tablet Take 1 tablet (2.5 mg total) by mouth 2 (two) times a day. Stop insulin 3 days prior Active atorvastatin (LIPITOR) 40 mg tablet Take 1 tablet (40 mg total) by mouth at bedtime. Active biotin 1 mg capsule as needed OTC Active blood pressure test kit-large kit Check blood pressure on arm as directed Active blood sugar diagnostic (FreeStyle Lite Strips) test strip USE TO TEST BLOOD SUGAR FOUR TIMES DAILY Active Fiber, calcium polycarbophil, 625 mg tablet Take 1 tablet (625 mg total) by mouth 1 (one) time each day. Active candesartan (ATACAND) 16 mg tablet Take 1 tablet (16 mg total) by mouth 1 (one) time each day. Active cholecalcifero l (VITAMIN D-3) 50 mcg (2,000 unit) capsule Take 1 capsule (2,000 Units total) by mouth 1 (one) time each day in the morning. Active cyanocobalamin (VITAMIN B-12) 1,000 mcg tablet Take 1 tablet (1,000 mcg total) by mouth 1 (one) time each day. Active cycloSPORINE (RESTASIS) 0.05 % ophthalmic emulsion 1 drop every 12 (twelve) hours. Active docusate sodium (COLACE) 100 mg capsule TAKE ONE CAPSULE TWICE DAILY NEEDED FOR CONSTIPATION Active DULoxetine (CYMBALTA) [address] capsule Take 1 capsule (60 mg total) by mouth 1 (one) time each day. Active erythromycin 5 mg/gram (0.5 %) ophthalmic ointment APPLY IN EACH EYE AND BOTH LIDS AT BEDTIME Active ferrous sulfate 325 mg (65 mg elemental iron) tablet Take 1 tablet (325 mg total) by mouth 3 times daily. Active fluticasone HFA (FLOVENT HFA) 220 mcg/actuation inhaler Inhale 2 puffs by mouth. Active Trelegy Ellipta 100-62.5-25 mcg inhaler INHALE ONE PUFF EVERY MORNING, RINSE MOUTH AFTER USE Active gabapentin (NEURONTIN) 100 mg capsule Take 2 capsules orally at bedtime for neuropathy 05/24/2 023 Active hydrocortisone 1 % ointment APPLY TO THE AFFECTED AREA(S) TWICE DAILY IN THE MORNING AND AT BEDTIME NEEDED FOR ITCHING OR FOR PAIN RECTAL Active insulin aspart (NovoLOG FlexPen) 100 unit/mL (3 mL) injection pen Give 2 units subcutaneously if sugars 150-200, 4 units if 201-250, 6 units if 251-300, 8 units if 301-350, 10 units if 350-400.Call MD if BS above 400 range 024 Active ipratropium-al buteroL (DUONEB) 0.5-2.5 mg/3 mL nebulizer solution 1 uni dose now for wheezing 022 Active ketorolac (ACULAR) 0.5 % ophthalmic solution PLACE ONE DROP IN EACH EYE TWICE DAILY Active Constulose solution Take 15 mL (10 g total) by mouth if needed. Active Creon 36,000-114,000 - 180,000 unit capsule,delaye d release(DR/EC) Take by mouth 4 (four) times a day. 025 Active lisinopriL (PRINIVIL,ZEST RIL) 10 mg tablet Take 1 tablet (10 mg total) by mouth 1 (one) time each day. 025 Active meclizine (ANTIVERT) 25 mg tablet TAKE ONE TABLET THREE TIMES DAILY IN THE MORNING, AT NOON, AND AT BEDTIME NEEDED FOR DIZZINESS 025 Active Januvia 25 mg tablet Take 1 tablet (25 mg total) by mouth 1 (one) time each day in the morning. Active witch Larissa 20 % pads, medicated APPLY TO THE AFFECTED AREA(S) NEEDED FOR DISCOMFORT 025 Active Velphoro 500 mg chewable tablet CHEW ONE TABLET THREE TIMES DAILY WITH MEALS 024 Active sucralfate (CARAFATE) 100 mg/mL suspension TAKE 10 ML BY MOUTH EVERY SIX HOURS 023 Active senna (SENOKOT) 8.6 mg tablet TAKE TWO TABLETS DAILY NEEDED FOR CONSTIPATION 023 Active lansoprazole (PREVACID SOLUTAB) 30 mg dispersible tablet Dissolve 1 tablet (30 mg total) on top of the tongue 1 (one) time each day. Dissolve on tongue before swallowing particles; do not chew, cut, break, or swallow whole. Active insulin aspart (NovoLOG) 100 unit/mL injection Inject under the skin 3 (three) times a day with meals. -Administer within 5 minutes of a meal Active acetaminophen (TYLENOL) 325 mg tablet take two tablets by mouth every eight hours as needed for pain 025 2024 Discontinued dexlansoprazol e (DEXILANT) [address] capsule Take 1 capsule (60 mg total) by mouth. 2024 Discontinued(F ormulary change) famotidine (PEPCID) 20 mg tablet Take 1 tablet (20 mg total) by mouth 1 (one) time each day. 024 2024 Discontinued(F ormulary change) lansoprazole (PREVACID) [address] capsule Take 1 capsule (30 mg total) by mouth 1 (one) time each day. 025 2024 Discontinued(F ormulary change) Active Problems Problem Noted Date Diagnosed Date ESRD (end stage renal disease) ([facility] V24, [facility] V28) 01/25/2025 Encounters Date Type Department Care Team Description 01/25/2025 9:00 AM EDT Consult General Surgery - [address] [phone] Anshul Matthews MD ESRD (end stage renal disease) ([facility] V24, [facility] V28) (Primary Dx) from Last 3 Months Surgical History Surgery Date Site/Laterality Comments OTHER SURGICAL HISTORY HERNIA REPAIR TUBAL LIGATION AV FISTULA PLACEMENT Left arm/ with coils CATARACT EXTRACTION IRIDOTOMY / IRIDECTOMY Medical History Medical History Date Comments Adverse effect of anesthesia diz zeness PONV (postoperative nausea and vomiting) COPD (chronic obstructive pu lmonary disease) ([facility] V24, [facility] V28) Hyperlipidemia Arrhythmia Hypertension Blindness cataracts,retina yopathy Diabetes mellitus ([facility] V24, [facility] V28) GERD (gastroesophageal reflux disease) Chronic kidney disease dyalisis Anemia History of transfusion Dizziness Chronic pain disorder Arthritis fibromyalgia, os teoperosis Depression dementia Social History Tobacco Use Types Packs/Day Years Used Date Smoking Tobacco: Never Tobacco Cessation:Counseling Given: Not Answered Alcohol Use Standard Drinks/Week Comments Never 0 (1 standard drink = 0.6 oz pur e alcohol) Comments Unknown Sex and Gender Information Value Date Recorded Sex Assigned at Not on file Legal Sex Female 9:13 PM EST Gender Identity Not on file Sexual Orientation Not on file Obstetrics History Last Filed Vital Signs Vital Sign Reading Time Taken Comments Blood Pressure 127/68 01/25/2025 8:56 AM EDT Pulse 76 01/25/2025 8:56 AM EDT Temperature 36.2 ??C (97.1 ??F) 01/25/2025 8:56 AM ED T Respiratory Rate - - Oxygen Saturation - - Inhaled Oxygen Concentration - - Weight 83 kg (183 lb) 01/25/2025 11:00 AM EDT Height 154.9 cm (5' 1 ) 01/25/2025 11:00 AM EDT Body Mass Index 34.58 01/25/2025 11:00 AM EDT Plan of Treatment Upcoming Encounters Date Type Department Care Team (Latest Contact Info) Description 02/01/2025 10:00 AM EDT Hospital Encounter [facility] OR [address] [place] [phone] Anshul Matthews MD [address] [address] 02/01/2025 10:00 AM EDT - 02/01/2025 12:00 PM EDT Surgery [facility] OR [address] [place] [phone] Anshul Matthews MD [address] [address] superfisicialization left arm fistula (revision) [96308 (CPT??)] Scheduled Procedures Name Priority Associated Diagnoses Date/Ti me CREATION FISTULA AV UPPER EXTREMITY ESRD (end stage renal disease) ([facility] V24, [facility] V28) 02/01/2025 10:00 AM EDT Health Maintenance Due Date Last Done Comments Diabetes: Annual GFR (Glomerular Filtration Rate) 1944 Diabetes: Annual Foot Exam 1954 Diabetes: Annual Retina Eye Exam 1954 Zoster Vaccines (2 of 2) 08/03/2019 06/08/2019, 03/24 RSV Immunization Adult Patients (1 - 1-dose 75+ series) 12/16/2019 Falls Risk Assessment 10/17/2023 Osteoporosis Screening (Bone Density Screening) 10/17/2023 Social Influencers of Health Screening 10/17/2023 COVID-19 Vaccine ( season) 2024 08/30/2021, 02/08/2021, 01/11/2021 Hypertension/CHF/CAD Annual BMP Blood Test 07/24/2024 Diabetes: Annual Urine Albumin-Creatinine Ratio (uACR) 01/25/2025 Diabetes: Blood Sugar Control Test (HGBA1C) 06/02/2025 11/30/2024 Depression Screening 11/30/2025 11/30/2024 DTaP,Tdap,and Td Vaccines (2 - Td or Tdap) 09/01/2028 09/01/2018 Cholesterol Screening (Lipid Panel) 07/28/2029 07/28/2024 Hepatitis B Vaccines Completed 05/30/2022, 01/02/2022, 12/05/2021 [...] on patient's age to complete this topic MMR Vaccines Aged Out No longer eligi ble based on patient's age to complete this topic Meningococcal ACWY Vaccine Aged Out N o longer eligible based on patient's age to complete this topic Meningococcal B Vaccine Aged Out No l onger eligible based on patient's age to complete this topic RSV Immunization Patients Under 20 months Aged Out No longer eligible based on patient's age to complete this topic Varicella Vaccines Aged Out No longer eligible based on patient's age to complete this topic Insurance [address] [facility] [id number] [facility] Member Subscriber Plan / Payer (Ef fective 2017-Present) Name:Neyda Belen Stone Relation to Subscriber:Self Name:Belen Lemus Payer ID:[id number] Group ID:[id number] Type:Not on file Address: [address] [address] Care Teams Imcu Nurse Relationship Specialty Start Date End Date Juany Rodriguez MD [address] [place] [address] PCP - General 04/22/24
--- OUTSIDE RECORDS SUMMARY | 2025-01-25 16:40 | XMS_ITS | Encounter Summary ---
Author Organization [employer] Address [address] [facility] [address] [place] [address] Care Team Providers Care Gas Distribution Plant Operator Name Role Phone Juany Rodriguez MD Primary Care Provider [phone] Reason for Visit * Reason Comments Med Refill Encounter Details Date Type Department Care Team ([facility] st Contact Info) Description 08/11/2024 Refill [facility] MED & PEDS [address] [place], [place] [phone] Araceli Clifford MD [address] [place], [place] [phone] Social History Tobacco Use Types Packs/Day Years [...] AM EDT Office Visit [facility] MED & PEDS [address] [place] [address] Juany Rodriguez MD [address] [place] [address] documented as of this encounter Visit Diagnoses Not on filedocumented in this encounter Care Teams Gas Distribution Plant Operator Relationship Specialty Start Date End Date Juany Rodriguez MD [address] [place] [address] PCP - General Family Medicine 09/01/17 Dirk DENNISON 08/13/24 documented as of this encounter
--- OUTSIDE RECORDS SUMMARY | 2025-01-25 16:40 | XMS_ITS | Encounter Summary ---
Author Organization [employer] Address [address] [facility] 7t [place] [address] Care Team Providers Care Plant Changer Name Role Phone Juany Rodriguez MD Primary Care Provider [phone] Encounter Details Date Type Department Care Team (Late Contact Info) Description 03/27/2023 Orders Only [facility] CH[facility] MED & PEDS [address] [facility] [place] [phone] Juany Rodriguez MD [address] [place], [place] [phone] Social History Tobacco Use Types Packs/Day Years [...] Description 03/09/2025 11:00 AM EDT Office Visit [facility] MED & PEDS [address] [place], [place] [phone] Juany Rodriguez MD [address] [place], [place] [phone] documented as of this encounter Visit Diagnoses Not on filedocumented in this encounter Care Teams Plant Changer Relationship Specialty Start Date End Date Juany Rodriguez MD [address] [place] [address] PCP - General Family Medicine 09/01/17 Dirk DENNISON 08/13/24 documented as of this encounter
--- OUTSIDE RECORDS SUMMARY | 2025-01-25 16:40 | XMS_ITS | Encounter Summary ---
Author Organization [employer] Address [address] [place] [address] [address] [address] Care Team Providers Care Tractor Engine Mechanic Name Role Phone Juany Rodriguez MD Primary Care Provider [phone] Encounter Details Date Type Department Care Team (Late Contact Info) Description 10/16/2023 [facility] [employer] [facility] [address] [place], [place] [phone] Juany Rodriguez MD [address] [place], [place] [phone] Social History Tobacco Use Types Packs/Day Years [...] Description 03/09/2025 11:00 AM EDT Office Visit [facility] MED & PEDS [address] [place], [place] [phone] Juany Rodriguez MD [address] [place], [place] [phone] documented as of this encounter Visit Diagnoses Not on filedocumented in this encounter Care Teams Tractor Engine Mechanic Relationship Specialty Start Date End Date Juany Rodriguez MD [address] [place], [place] [address], [place] [address] PCP - General Family Medicine 09/01/17 Dirk DENNISON 08/13/24 documented as of this encounter
--- OUTSIDE RECORDS SUMMARY | 2025-01-25 16:40 | XMS_ITS | Encounter Summary ---
Author Organization [employer] Address [address] [facility] 7t [place] [address] Care Team Providers Care Zipper Setter Lockstitch Name Role Phone Juany Rodriguez MD Primary Care Provider Encounter Details Date Type Department Care Team ([facility] st Contact Info) Description 07/12/2024 Orders Only [facility] CH[facility] MED & PEDS [address] [place], [place] [phone] Juany Rodriguez MD [address] [place], [place] [phone] Social History Tobacco Use Types Packs/Day Years Used Date Smoking Tobacco: Never Passive Smoke Exposure: Never Smokeless Tobacco: Never Alcohol Use Standard Drinks/Week Comments Never 0 (1 standard drink = 0.6 oz pur e alcohol) Housing Stability Answer Date Recorded What is your housing situation today? I have tiagotomi alicea 12/31/[address] you [...] Description 03/09/2025 11:00 AM EDT Office Visit [facility] MED & PEDS [address] [place] [address] Juany Rodriguez MD [address] [place] [address] documented as of this encounter Visit Diagnoses Not on filedocumented in this encounter Care Teams Zipper Setter Lockstitch Relationship Specialty Start Date End Date Juany Rodriguez MD [address] [place] [address] PCP - General Family Medicine 09/01/17 Dirk DENNISON 08/13/24 documented as of this encounter
--- OUTSIDE RECORDS SUMMARY | 2025-01-25 16:40 | XMS_ITS | Encounter Summary ---
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 Patient verbalized understanding and denied [...] 11:00 AM EDT Office Visit [facility] MED & PEDS [address] [place] [address] Juany Rodriguez MD [address] [place] [address] documented as of this encounter Visit Diagnoses Not on filedocumented in this encounter Care Teams Agate Setter Relationship Specialty Start Date End Date Juany Rodriguez MD [address] [place] [address] PCP - General Family Medicine 09/01/17 Dirk DENNISON 08/13/24 documented as of this encounter
--- OUTSIDE RECORDS SUMMARY | 2025-01-25 16:40 | XMS_ITS | Encounter Summary ---
Author Organization [employer] Address [address] [facility] 7t [place] [address] Care Team Providers Care Radiological Health Specialist Name Role Phone Juany Rodriguez MD Primary Care Provider [phone] Reason for Visit * Reason Onset Date Comments Paperwork/Forms 07/08/2023 Encounter Details Date Type Department Care Team ([facility] st Contact Info) Description 07/08/2023 Telephone [facility] MEDICINE [address] [place] [address] Juany Rodriguez MD [address] [place], [place] [phone] Paperwork/Forms Social History Tobacco Use Types Packs/Day [...] [facility] MED [facility]ED[facility] [address] [place] [address] Juany Rodriguez MD [address] [place] [address] documented as of this encounter Visit Diagnoses Not on filedocumented in this encounter Care Teams Radiological Health Specialist Relationship Specialty Start Date End Date Juany Rodriguez MD [address] [place] [address] PCP - General Family Medicine 09/01/17 Dirk DENNISON 08/13/24 documented as of this encounter
--- OUTSIDE RECORDS SUMMARY | 2025-01-25 16:40 | XMS_ITS | Encounter Summary ---
Author Organization [employer] Address [address] [facility] 7t [place] [address] Care Team Providers Care Noc Analyst Name Role Phone Juany Rodriguez MD Primary Care Provider [phone] Reason for Visit * Reason Onset Date Comments Appointment Request 07/06/2024 Encounter Details Date Type Department Care Team ([facility] st Contact Info) Description 07/06/2024 Telephone [facility] MEDICINE [address] [place] [address] Juany Rodriguez MD [address] [place], [place] [phone] Appointment Request Social History Tobacco Use Types [...] 07/06/2024 3:20 PM EDT Triage call with [employer] income tax advisor jaimie Carrasco. Pt daughter had called requesting rescheduled apt . Pt had loose stools and wasn't able to leave house. New apt scheduled for 07/09/24 @ 845am with Dr. Clifford. [employer] bilateral pedal edema/hand swelling. [facility] was offered for today but, declined. * Telephone Encounter - Tc Johnson - 07/06/2024 2:45 PM EDT Tc from Daughter stating pt was unable to make it to today's visit and is requesting to reschedule. documented in this encounter Plan of Treatment Upcoming Encounters Date Type Department Care Team ([facility] st Contact Info) Description 03/09/2025 11:00 AM EDT Office Visit [facility] CHC MED & PEDS [address] [place] [address] Juany Rodriguez MD [address] [place] [address] documented as of this encounter Visit Diagnoses Not on filedocumented in this encounter Care Teams Noc Analyst Relationship Specialty Start Date End Date Juany Rodriguez MD [address] [place] [address] PCP - General Family Medicine 09/01/17 Dirk DENNISON 08/13/24 documented as of this encounter
--- OUTSIDE RECORDS SUMMARY | 2025-01-25 16:40 | XMS_ITS | Encounter Summary ---
Author Organization [employer] Address [address] [place] [address] 7t [place] [address] Care Team Providers Care Hospital Carrier Name Role Phone Juany Rodriguez MD Primary Care Provider [phone] Reason for Visit * Reason Comments Med Refill Encounter Details Date Type Department Care Team ([facility] Contact Info) Description 02/03/2023 Refill [facility] MED & PEDS [address] [place], [place] [phone] Juany Rodriguez MD [address] [place], [place] [phone] Severe pulmonary hypertension (CMS/HCC) Social History Tobacco [...] Upcoming Encounters Date Type Department Care Team ([facility] Contact Info) Description 03/09/2025 11:00 AM EDT Office Visit [facility] MED & PEDS [address] [place], [place] [phone] Juany Rodriguez MD [address] [place], [place] [phone] documented as of this encounter Visit Diagnoses Diagnosis Severe pulmonary hypertension (CMS/HCC) documented in this encounter Care Teams Hospital Carrier Relationship Specialty Start Date End Date Juany Rodriguez MD [address] [place] [address] PCP - General Family Medicine 09/01/17 Dirk DENNISON 08/13/24 documented as of this encounter
--- OUTSIDE RECORDS SUMMARY | 2025-01-25 16:40 | XMS_ITS | Data Portability ---
Author Organization [employer] [place] [facility] [employer] Address [address] [place] [address] Care Team Providers Care Neurophysiology Tech Name Role Phone [facility] Referring Provider [facility] Referring Provider Assessment Encounter Date Assessment Date Assessment LastModified by Organization Details LastModified Time 06/14/2022 06/14/2022 I have reviewed and agree with the Assessment and Plan as documented by the Major Assembly Lineman. I provided real -time medical direction via [...] access to them), it would reassure her. [email or web address] Not available 06/14/2022 18:40:48 Plan of Treatment Reminders Order Date Submit Date Provider Last Modified By Organization Details Last Modified Time Details Appointments None recorded. Lab glucose, fingerstick , blood 2021 [email or web address] 0 [facility], [address] [place] [address], [phone] 17:51:12 rapid SARS CoV 2 Ag, QL IA, respiratory specimen 2021 [email or web address] 0 [facility], [address] [place] [address], [phone] 17:51:12 Referral None recorded. Procedures None recorded. Surgeries None recorded. Imaging None recorded. Medication Orders ipratropium 0.5 mg-albutero l 3 mg (2.5 mg base)/3 mL nebulizatio n soln 2021 [email or web address] 0 Not available 17:21:20 albuterol sulfate 2.5 mg/3 mL (0.083 %) solution for nebulizatio n 2021 [facility], [address] [facility], [place], [place], [phone], 18:01:10 Patient TargetsNo targets recorded. Patient InstructionsNo instructions recorded. Reason for Referral None Reported. Results Created Date Observation Date Name Description Value Unit Range Abnormal Flag Note LastModifiedBy Organization Detail LastModifiedTime 06/14/2006/14/2022 gluco se, finge rstic k, blood Blood Glucose: mg/dl 249 Not Available [address], [phone] 06/14/2022 17:29:35 06/14/20 22 06/14/2022 rapid SARS CoV 2 Ag, QL IA, respi rator y speci men rapid SARS CoV 2 Ag, QL IA, respiratory specimen negati ve Not Available [facility] - [facility] ed [address] [place] [address], [phone] 06/14/2022 17:27:03 Result Notes None recorded. Medical Equipment None Reported. Allergies Allergen ID Allergen Name Allergen Category Reaction Reaction Severity Criticality Documentation Date Start Date Code Code System Note Provider Name and Address Organization Details Recorded Time 1097 Product containin g penicilli n (product) medicatio n Not available Not available Not available 06/14/2022 44405 8001 SNOMED Not Available [employer] - production [...] Not Available Not Available No t Available [facility] spacer USE DIRECTED active Not [...] % 22 /min 98.3 [degF] 85 /min 03411.3 36 g 98.3 [degF] 85 /min 22 /min 95 % 95 % 150 mm[Hg] 79 mm[Hg] 150 mm[Hg] 79 mm[Hg] Not Available [facility] - production 18:41:26 Date Recorded Body weight Provider Name an d Address Organization Details Last Updated DateTime 06/14/2022 51143.63 g Aurelia Roberts [address] [place] [address],[address], [place], [address], [facility] Melodigram [facility] 06/14/2022 17:19:02 Social History None recorded. Functional Status None recorded. Mental Status None recorded. Family History Nothing Reported. Medical History No medical history recorded. Gynecological HistoryNo gynecological history recorded. Obstetrics History GPAL:G 0 P 0 0 0 0 Past Encounters Encounter ID Performer Location Encounter Start Date Encounter Closed Date Diagnosis/Indication Diagnosis SNOMED-CT Code Diagnosis ICD10 Code Diagnosis Note [id number] Leanne Giron MD [facility] [address] [place] [phone] 06/14/2022 17:14:21 06/24/2022 13:48:28 Acute exacerbation of chronic obstructive pulmonary disease 313282114 J44.1 increase nebs to 4 x per day may go as high as q 4 hr- if needs more consider ER Type 2 melida betes mellitus 10239103 E11.9 Health Concerns Section Related Observation LastModified by Organization Detai ls LastModified Time None Recorded Concern Status LastModified by Organization Details LastModified Time None Recorded Advance Directives Directive None Recorded Payers Encounter Date Sequence Insurance Name Policy Number Policy Burton Covered Member ID Burton Member ID Guarantor Name 06/14/2022 1 [facility] - DOS PRIOR TO 2022 - DUAL ELIGIBLE (MEDICARE REPLACEMENT/ADV ANTAGE - HMO) Belen Stone [id number] Belen Stone Notes Date Note Type Note [...] .................. .................. .................. .................. .................. .................. ..... Major Assembly Lineman Note: Sent to evaluate pt c/o wheeze+sob. [...] pt takes BID nebs. BGL 249. Consulted [facility] who ordered duoneb and rapid covid test. Rapid covid -, reassessment of lung sounds post neb are clear with better air movement. [facility] orders nebs to be increased to QID, up to Q4 PRN. Pt has pulm appt next month that she was encouraged to keep. Pt to call PCP on Friday. Went over red flags and there were no further questions or concerns at this time. .................. .................. .................. .................. .................. .................. .................. ............... Disposition: Fulfilled Leanne Giron MD [address] [facility],[address], [place], [address], [facility] [employer] 06/14/2022 23:24:03 OBGyn Episode No OBEpisode recorded.
--- OUTSIDE RECORDS SUMMARY | 2025-01-25 16:40 | XMS_ITS | Clinical Summary ---
Author Organization [facility] Address [address] [place] [address] Care Team Providers Care Supervisory Civil Engineer Name Role Phone Unavailable Primary Care Provider [...] (two) times a day. 0 12/19/2022 Active [place]-3 Fatty Acids (Fish Oil) 1000 MG CAPS [...]
--- OUTSIDE RECORDS SUMMARY | 2025-01-25 16:40 | XMS_ITS | Encounter Summary ---
Author Organization [employer] Address [address] [facility] 7t [place] [address] Care Team Providers Care Quality Assurance Manager Name Role Phone Juany Rodriguez MD Primary Care Provider [phone] Reason for Visit * Reason Onset Date Comments Med Refill 12/03/2024 Encounter Details Date Type Department Care Team (Late st Contact Info) Description 12/03/2024 Telephone [facility] MEDICINE [address] [place] [address] Juany Rodriguez MD [address] [facility] [place] [phone] Med Refill Social History Tobacco Use Types [...] 50 MG tablet To be sent to: [facility] - [place], [place] - [address] [place] [address] documented in this encounter Plan of Treatment Upcoming Encounters Date Type Department Care Team (Late st Contact Info) Description 03/09/2025 11:00 AM EDT Office Visit [facility] MED & PEDS [address] [place] [address] Juany Rodriguez MD [address] [place] [address] documented as of this encounter Visit Diagnoses Not on filedocumented in this encounter Additional Health Concerns Assessment Noted Time PHQ-9 Depression Total Score: 8 03/11/20 25 11:36 AM EDT documented as of this encounter Care Teams Quality Assurance Manager Relationship Specialty Start Date End Date Juany Rodriguez MD [address] [place] [address] PCP - General Family Medicine 09/01/17 Dirk DENNISON 08/13/24 documented as of this encounter
--- OUTSIDE RECORDS SUMMARY | 2025-01-25 16:40 | XMS_ITS | Encounter Summary ---
Author Organization [employer] Address [address] [facility] 7t [place] [address] Care Team Providers Care Undercutter Name Role Phone Juany Rodriguez MD Primary Care Provider [phone] Reason for Visit * Reason Comments Med Refill Encounter Details Date Type Department Care Team ([facility] st Contact Info) Description 12/28/2024 Refill [facility] MED & PEDS [address] [place], [place] [phone] Juany Rodriguez MD [address] [place], [place] [phone] Type 2 diabetes mellitus without complication, without [...] Upcoming Encounters Date Type Department Care Team ([facility] st Contact Info) Description 03/09/2025 11:00 AM EDT Office Visit [facility] MED & PEDS [address] [place] [address] Juany Rodriguez MD [address] [place] [address] documented as of this encounter Visit Diagnoses Diagnosis Type 2 diabetes mellitus without complication, without long-term current use of insulin (CMS/HCC) Severe pulmonary hypertension (CMS/HCC) documented in this encounter Additional Health Concerns Assessment Noted Time PHQ-9 Depression Total Score: 8 12/01/19 25 11:36 AM EDT documented as of this encounter Care Teams Undercutter Relationship Specialty Start Date End Date Juany Rodriguez MD [address] [place] [address] PCP - General Family Medicine 09/01/17 Dirk DENNISON 08/13/24 documented as of this encounter
--- OUTSIDE RECORDS SUMMARY | 2025-01-25 16:40 | XMS_ITS | Encounter Summary ---
Author Organization [employer] Address [address] [place] [address] 7[address] [place] [address] Care Team Providers Care Wine Sales Representative Name Role Phone Juany Rodriguez MD Primary Care Provider [phone] Reason for Visit * Reason Comments Med Refill Encounter Details Date Type Department Care Team (Late st Contact Info) Description 01/12/[address] [facility] MED & PEDS [address] [place] [address] Juany Rodriguez MD [address] [place], [place] [phone] Pain Social History Tobacco Use Types Packs/Day [...] 03/09/2025 11:00 AM EDT Office Visit [facility] MED & PEDS [address] [place], [place] [phone] Juany Rodriguez MD [address] [place] [address] documented as of this encounter Visit Diagnoses Diagnosis Pain Generalized pain documented in this encounter Care Teams Wine Sales Representative Relationship Specialty Start Date End Date Juany Rodriguez MD [address] [place] [address] PCP - General Family Medicine 09/01/17 Dirk DENNISON 08/13/24 documented as of this encounter
--- OUTSIDE RECORDS SUMMARY | 2025-01-25 16:40 | XMS_ITS | Encounter Summary ---
Author Organization [employer] Address [address] [place] [address] 7[address] [place] [address] Care Team Providers Care Rehab Physician Name Role Phone Juany Rodriguez MD Primary Care Provider [phone] Encounter Details Date Type Department Care Team (Latest Contact Info) Description 05/07/2022 Abstract [facility] CONVERSIONS Dental, Provider, DDS Social History [...] Upcoming Encounters Date Type Department Care Team ( st Contact Info) Description 03/09/2025 11:00 AM EDT Office Visit [facility] CHC MED & PEDS [address] [place] [address] Juany Rodriguez MD [address] [place] [address] documented as of this encounter Visit Diagnoses Not on filedocumented in this encounter Care Teams Rehab Physician Relationship Specialty Start Date End Date Juany Rodriguez MD [address] [place] [address] PCP - General Family Medicine 09/01/17 Dirk DENNISON 08/13/24 documented as of this encounter
--- OUTSIDE RECORDS SUMMARY | 2025-01-25 16:40 | XMS_ITS | Encounter Summary ---
Author Organization [employer] Address [address] [facility] 7t [place] [address] Care Team Providers Care Wax Blender Name Role Phone Juany Rodriguez MD Primary Care Provider [phone] Reason for Visit * Reason Onset Date Comments Nurse Triage 08/20/2023 Encounter Details Date Type Department Care Team ([facility] st Contact Info) Description 08/20/2023 Telephone [facility] MEDICINE [address] [place] [address] Juany Rodriguez MD [address] [place] [address] Nurse Triage Social History Tobacco Use Types [...] 08/20/2023 10:38 AM EST Triage call Pt Tish garcia HIPPA, reports for last 2 days Pt has been halucinating. Pt reports pictures falling off the wall, curtains falling which are not actually occurring. PtBP is 183/95 at time of call, continues with lopresser 50mg po. Pt denies urinary symptoms. Neg forfever or ZEV sx. Pt is going for blood draw at 100pm today. Declines to come to [facility] at [facility]. No aptsavailable in [place] today will obtain insted visit with [facility] insurance present. Tish agrees to this [...] caller accepted this outcome Please contact Tish [phone] documented in this encounter Plan of Treatment Upcoming Encounters Date Type Department Care Team (Late st Contact Info) Description 03/09/2025 11:00 AM EDT Office Visit [facility] CH[facility] MED & PEDS [address] [place] [address] Juany Rodriguez MD [address] [place] [address] documented as of this encounter Visit Diagnoses Not on filedocumented in this encounter Care Teams Wax Blender Relationship Specialty Start Date End Date Juany Rodriguez MD [address] [place] [address] PCP - General Family Medicine 09/01/17 Dirk DENNISON 08/13/24 documented as of this encounter
--- OUTSIDE RECORDS SUMMARY | 2025-01-25 16:40 | XMS_ITS | Encounter Summary ---
Author Organization [employer] Address [address] [facility] 7t [place] [address] Care Team Providers Care Converting Technician Name Role Phone Juany Rodriguez MD Primary Care Provider [phone] Reason for Visit * Reason Comments Med Refill Encounter Details Date Type Department Care Team ([facility] st Contact Info) Description 01/22/2025 Refill [facility] CHC MED & PEDS [address] [place], [place] [phone] Juany Rodriguez MD [address] [place], [place] [phone] Pain Social History Tobacco Use Types Packs/Day [...] Upcoming Encounters Date Type Department Care Team ([facility] st Contact Info) Description 03/09/2025 11:00 AM EDT Office Visit [facility] MED & PEDS [address] [place] [address] Juany Rodriguez MD [address] [place] [address] documented as of this encounter Visit Diagnoses Diagnosis Pain Generalized pain documented in this encounter Additional Health Concerns Assessment Noted Time PHQ-9 Depression Total Score: 8 12/01/19 25 11:36 AM EDT documented as of this encounter Care Teams Converting Technician Relationship Specialty Start Date End Date Juany Rodriguez MD [address] [place] [address] PCP - General Family Medicine 09/01/17 Dirk DENNISON 08/13/24 documented as of this encounter
--- OUTSIDE RECORDS SUMMARY | 2025-01-25 16:40 | XMS_ITS | Encounter Summary ---
Author Organization [employer] Address [address] [facility] 7t [place] [address] Care Team Providers Care Head Turning Machine Operator Name Role Phone Juany Rodriguez MD Primary Care Provider [phone] Reason for Visit * Reason Onset Date Comments Nurse Triage 03/18/2023 Encounter Details Date Type Department Care Team (Late st Contact Info) Description 03/18/2023 Telephone [facility] MEDICINE [address] [place] [address] Juany Rodriguez MD [address] [place], [place] [phone] Nurse Triage Social History Tobacco Use Types [...] 12:56 PM EDT Called pt daughter via [employer] language interpreter [id number] Byrd. No answer. Docking Pilot left message on pt. Voicemail to call back [facility] nurses at [phone]. RE: Asthma attack. Called alternate number and [...] acuity questions The caller accepted this outcome KHMER SEPAKER documented in this encounter Plan of Treatment Upcoming Encounters Date Type Department Care Team (Late st Contact Info) Description 03/09/2025 11:00 AM EDT Office Visit [facility] CH[facility] MED & PEDS [address] [place] [address] Juany Rodriguez MD [address] [place] [address] documented as of this encounter Visit Diagnoses Diagnosis Severe pulmonary hypertension (CMS/HCC) documented in this encounter Care Teams Head Turning Machine Operator Relationship Specialty Start Date End Date Juany Rodriguez MD [address] [place] [address] PCP - General Family Medicine 09/01/17 Dirk DENNISON 08/13/24 documented as of this encounter
--- OUTSIDE RECORDS SUMMARY | 2025-01-25 16:40 | XMS_ITS | Encounter Summary ---
Author Organization [employer] Address [address] [facility] 7t [place] [address] Care Team Providers Care Genetic Counselor Name Role Phone Juany Rodriguez MD Primary Care Provider Reason for Visit * Reason Comments Med Refill Encounter Details Date Type Department Care Team ([facility] Contact Info) Description 03/18/2023 Refill [facility] MED & PEDS [address] [facility] [place] [address] Juany Rodriguez MD [address] [place] [address] Severe pulmonary hypertension (CMS/HCC) Social History Tobacco [...] Upcoming Encounters Date Type Department Care Team ([facility] Contact Info) Description 03/09/2025 11:00 AM EDT Office Visit [facility] MED & PEDS [address] [place] [address] Juany Rodriguez MD [address] [place] [address] documented as of this encounter Visit Diagnoses Diagnosis Severe pulmonary hypertension (CMS/HCC) documented in this encounter Care Teams Genetic Counselor Relationship Specialty Start Date End Date Juany Rodriguez MD [address] [place] [address] PCP - General Family Medicine 09/01/17 Dirk DENNISON 08/13/24 documented as of this encounter
--- OUTSIDE RECORDS SUMMARY | 2025-01-25 16:41 | XMS_ITS | Encounter Summary ---
Author Organization [employer] Address [address] [place] [address] Care Team Providers Care Silver Lap Machine Tender Name Role Phone Juany Rodriguez MD Primary Care Provider [phone] Reason for Visit * Reason Comments Constipation Consult for elevatio n procedure for fistula Encounter Details Date Type Department Care Team ([facility] st Contact Info) Description 01/25/2025 9:00 AM EDT Consult General Surgery - [place] [address] [facility] [address] [place] [phone] Anshul Blanco MD [address] [facility] [address] [place], [place] [phone] ESRD (end stage renal disease) ([facility] V24, [facility] V28) (Primary Dx) Social History Tobacco Use Types [...] on file Sexual Orientation Not on file documented as of this encounter Last Filed Vital Signs Vital Sign Reading Time Taken Comments Blood Pressure 127/68 01/25/2025 8:56 AM EDT Pulse 76 01/25/2025 8:56 AM EDT Temperature 36.2 ??C (97.1 ??F) 01/25/2025 8:56 AM ED T Respiratory Rate - - Oxygen Saturation - - Inhaled Oxygen Concentration - - Weight 83.7 kg (184 lb 9.6 oz) 01/25/2025 8:56 A M EDT Height 154.9 cm (5' 1 ) 01/25/2025 8:56 AM EDT Body Mass Index 34.88 01/25/2025 8:56 AM EDT documented in this encounter Progress Notes * Anshul Blanco MD - 01/25/2025 9:00 AM EDT REFERRING PROVIDER: Mayra Anderson NP REASON FOR VISIT: Surgical evaluation for superficialization of left upper arm fistula HPI: This is a very pleasant 79 y.o.-year-old female who presents for consultation regarding malfunctioning left arm fistula. The patient is accompanied in the office by her granddaughter Tish who isalso her healthcare proxy. Patient underwent a left upper arm ellipsis percutaneous fistula creation and subsequent maturation angioplasty. She developed a mature sized fistula with adequate flow butwas noted that the fistula was too deep for cannulation. Patient presents for surgical evaluation for possible revision to superficial lysed the fistula. Patient is currently on dialysis with a tunneled central venous catheter which is working fine. Shecomplains of some mild pain at the left elbow but no hand symptoms and no additional arm complaints. She denies any chest pain or shortness of breath. She denies any fevers or chills. She is on Eliquis. She has stopped that for procedures without difficulty. Patient does have dementia and her granddaughter is her proxy and primary decision-maker. ROS The following symptom list was reviewed with the patient: GENERAL: fevers, chills, sweats, change in weight, fatigue or malaise HEENT: changes in hearing or vision, nasal problems NECK: lumps, goiter, or significant neck swelling RESPIRATORY: cough, wheezing, shortness of breath, pleuritic chest pain CARDIOVASCULAR: chest pain, leg swelling or palpitations GI: abdominal discomfort, blood in stools or black stools : dysuria, frequency or incontinence MUSCULOSKELETAL: joint pain or swelling, back pain, or muscle pain SKIN: lesions, rash or itching PSYCH: sleep disturbance or depression HEMATOLOGY: prolonged bleeding, easy bruisability or swollen nodes ENDOCRINE: cold or heat intolerance, polyuria, polydipsia or goiter NEURO: persistent headache, syncope, seizures, weakness or numbness The patient reported the following as positive: As per HPI; PAST MEDICAL HISTORY: I personally reviewed the following past medical history with the patient and updated the records as appropriate. ESRD, dementia, diabetes, hypertension, sleep apnea, pulmonary hypertension, pancreatic insufficiency, anemia, arrhythmia (on anticoagulation) asthma, arthritis PAST SURGICAL HISTORY: I personally reviewed the following past surgical history with the patient and updated the records as appropriate. Left arm percutaneous fistula. Right IJ dialysis catheter SOCIAL HISTORY: I personally reviewed the following social history with the patient and updated the records as appropriate. Social History Socioeconomic History Marital status: Single Spouse name: None Number of children: None Years of education: None Highest education level: None Occupational History None Tobacco Use Smoking status: Never Smokeless tobacco: None Substance and Sexual Activity Alcohol use: Never Drug use: Never Sexual activity: None Other Topics Concern None Social History Narrative None FAMILY HISTORY: I personally reviewed the following family medical history with the patient and updated the recordsas appropriate. No family history on file. ACTIVE MEDICATIONS: Medication list was reviewed/updated with the patient. Outpatient Medications Marked as Taking for the 01/25/25 encounter (Consult) with Anshul Blanco MD Medication Sig Dispense Refill acetaminophen (TYLENOL) 325 mg tablet TAKE TWO TABLETS EVERY 8 HOURS NEEDED FOR PAIN acetaminophen (TYLENOL) 325 mg tablet take two tablets by mouth every eight hours as needed for pain Alcohol Prep Pads pads, medicated alendronate (FOSAMAX) 70 mg tablet TAKE 1 TABLET ONCE A WEEK WITH 6 TO 8 OZ OF WATER 30 MINUTES BEFORE FIRST FOOD OF THE DAY. DO NOT LIE DOWN FOR 30 MINUTES. amLODIPine (NORVASC) 10 mg tablet Take 1 tablet (10 mg total) by mouth 1 (one) time each day. ammonium lactate (LAC-HYDRIN) 12 % lotion use 2 x day ascorbic acid (VITAMIN C) 500 mg tablet Take 1 tablet (500 mg total) by mouth 1 (one) time each day. atorvastatin (LIPITOR) 40 mg tablet Take 1 tablet (40 mg total) by mouth. biotin 1 mg capsule as needed OT blood pressure test kit-large kit Check blood pressure on arm as directed blood sugar diagnostic (FreeStyle Lite Strips) test strip USE TO TEST BLOOD SUGAR FOUR TIMES DAILY candesartan (ATACAND) 16 mg tablet Take 1 tablet (16 mg total) by mouth 1 (one) time each day. cholecalciferol (VITAMIN D-3) 50 mcg (2,000 unit) capsule Take 1 capsule (2,000 Units total) by mouth 1 (one) time each day in the morning. Constulose solution TAKE 15 ML BY MOUTH EVERY DAY NEEDED FOR CONSTIPATION Creon 36,000-114,000- 180,000 unit capsule,delayed release(DR/EC) TAKE ONE CAPSULE FOUR TIMES DAILYWITH MEALS AND SNACK cyanocobalamin (VITAMIN B-12) 1,000 mcg tablet Take 1 tablet (1,000 mcg total) by mouth 1 (one) time each day. cycloSPORINE (RESTASIS) 0.05 % ophthalmic emulsion instill 1 drop by ophthalmic route every 12 hours into affected eye(s) dexlansoprazole (DEXILANT) [address] capsule Take 1 capsule (60 mg total) by mouth. docusate sodium (COLACE) 100 mg capsule TAKE ONE CAPSULE TWICE DAILY NEEDED FOR CONSTIPATION DULoxetine (CYMBALTA) [address] capsule Take 1 capsule (60 mg total) by mouth 1 (one) time each day. Eliquis 2.5 mg tablet Take 1 tablet (2.5 mg total) by mouth 2 (two) times a day. erythromycin 5 mg/gram (0.5 %) ophthalmic ointment APPLY IN EACH EYE AND BOTH LIDS AT BEDTIME famotidine (PEPCID) 20 mg tablet Take 1 tablet (20 mg total) by mouth 1 (one) time each day. ferrous sulfate 325 mg (65 mg elemental iron) tablet Take 1 tablet (325 mg total) by mouth 3 times daily. Fiber, calcium polycarbophil, 625 mg tablet Take 1 tablet (625 mg total) by mouth 1 (one) time eachday. fluticasone HFA (FLOVENT HFA) 220 mcg/actuation inhaler Inhale 2 puffs by mouth. gabapentin (NEURONTIN) 100 mg capsule Take 2 capsules orally at bedtime for neuropathy hydrocortisone 1 % ointment APPLY TO THE AFFECTED AREA(S) TWICE DAILY IN THE MORNING AND AT BEDTIMEAS NEEDED FOR ITCHING OR FOR PAIN RECTAL insulin aspart (NovoLOG FlexPen) 100 unit/mL (3 mL) injection pen Give 2 units subcutaneously if sugars 150-200, 4 units if 201-250, 6 units if 251-300, 8 units if 301-350, 10 units if 350-400.Call MD if BS above 400 range ipratropium-albuteroL (DUONEB) 0.5-2.5 mg/3 mL nebulizer solution 1 uni dose now for wheezing Januvia 25 mg tablet Take 1 tablet (25 mg total) by mouth 1 (one) time each day in the morning. ketorolac (ACULAR) 0.5 % ophthalmic solution PLACE ONE DROP IN EACH EYE TWICE DAILY lansoprazole (PREVACID) [address] capsule Take 1 capsule (30 mg total) by mouth 1 (one) time each day. lisinopriL (PRINIVIL,ZESTRIL) 10 mg tablet Take 1 tablet (10 mg total) by mouth 1 (one) time each day. meclizine (ANTIVERT) 25 mg tablet TAKE ONE TABLET THREE TIMES DAILY IN THE MORNING, AT NOON, AND ATBEDTIME NEEDED FOR DIZZINESS senna (SENOKOT) 8.6 mg tablet TAKE TWO TABLETS DAILY NEEDED FOR CONSTIPATION sucralfate (CARAFATE) 100 mg/mL suspension TAKE 10 ML BY MOUTH EVERY SIX HOURS Trelegy Ellipta 100-62.5-25 mcg inhaler INHALE ONE PUFF EVERY MORNING, RINSE MOUTH AFTER USE Velphoro 500 mg chewable tablet CHEW ONE TABLET THREE TIMES DAILY WITH MEALS Ventolin HFA 90 mcg/actuation inhaler inhale two puffs every 4 hours as needed witch Larissa 20 % pads, medicated APPLY TO THE AFFECTED AREA(S) NEEDED FOR DISCOMFORT ALLERGIES: Allergies Allergen Reactions Penicillin G Hives PHYSICAL EXAM: Visit Vitals BP 127/68 (BP Location: Right arm, Patient Position: Sitting, BP Cuff Size: Large adult) Pulse 76 Temp 36.2 ??C (97.1 ??F) (Temporal) Ht 1.549 m (61 ) Wt 83.7 kg (184 lb 9.6 oz) BMI 34.88 kg/m?? Smoking Status Never BSA 1.83 m?? GENERAL: Awake, alert, and in no acute distress. HEAD: Normocephalic, atraumatic. EYES: Pupils equal and round. Anicteric sclera. Conjunctiva normal. NECK: Thyroid midline and without goiter, nodule, tenderness, or mass. No appreciable adenopathy. CHEST: Non-tender. LUNGS: Clear to auscultation bilaterally without wheezing, rales, or rhonchi. CARDIAC: RRR, normal S1/S2, no appreciable murmur. ABDOMEN: Soft, non-tender, non-distended. No appreciable mass. No organomegaly. No ventral or umbilical hernia noted. LYMPH NODES: Cervical and supraclavicular lymph nodes without adenopathy. EXTREMITIES: Warm, well-perfused. Trace pretibial edema. A strong thrill is palpated over the left upper arm fistula. The arm has no noticeable edema. The hand is pink and well-perfused with a weakly palpable radial pulse at the wrist. The hand is sensorimotor intact. BACK: Grossly normal range of motion. SKIN: Warm, no lesion or rash noted on visible skin. NEURO: Alert and oriented, appropriate. Motor and sensory grossly intact. LABS: Lab results, as listed below, were reviewed and discussed with the patient. No pertinent labs. IMAGING: The following images were personally reviewed, including reports and associated films. Findings were discussed with the patient. Ultrasound evaluation of the left upper arm fistula was performed today demonstrating a mature sizecephalic fistula that becomes deep (up to 2 cm deep in mid portion) and tortuous starting a short distance above the elbow. Prior ultrasound evaluation done at [facility] was also reviewed and findings were concordant with today's ultrasound with the exception being that the fistula is deeper than described (approximately 2 cm deep in the mid cephalic on my evaluation). ................................................................................ ............................................................. ASSESSMENT & PLAN: ESRD; malfunctioning left upper arm cephalic fistula (mature size, too deep) Plan: Superfiscialization left arm dialysis fistula, 02/01 Hold eliquis for 2 days prior to surgery. Details of the surgery were explained to the patient and her granddaughter. Risk of bleeding, infection, problems with anesthesia, fistula malfunction or failure to be usable for dialysis and possible need for further procedures were discussed. Patient wishes to proceed with the intended surgery. It was a pleasure seeing Belen Stone at the [facility] today. The patient has been instructed to call with any additional questions or concerns. Thank you for this referral. Anshul Blanco MD, LOCATED WITHIN [facility] General Surgery [facility] A Member of [employer] [facility] W [phone] F [phone] [place] [phone] [email or web address] cc: Mayra Anderson, ABA THERAPIST documented in this encounter Plan of Treatment Upcoming Encounters Date Type Department Care Team (Latest Contact Info) Description 02/01/2025 10:00 AM EDT Hospital Encounter [facility] OR [address] [place] [phone] Anshul Blanco MD [address] [place] [phone] 02/01/2025 10:00 AM EDT - 02/01/2025 12:00 PM EDT Surgery [facility] OR [address] [place] [phone] Anshul Blanco MD [address] [place] [id number] superfisicialization left arm fistula (revision) [19819 (CPT??)] Scheduled Procedures Name Priority Associated Diagnoses Date/Ti me CREATION FISTULA AV UPPER EXTREMITY ESRD (end stage renal disease) ([facility] V24, [facility] V28) 02/01/2025 10:00 AM EDT documented as of this encounter Visit Diagnoses Diagnosis ESRD (end stage renal disease) ([facility] V24, [facility] V28)- Primary End stage renal disease ESRD (end stage renal disease) ([facility] V24, [facility] V28)- Primary End stage renal disease ESRD (end stage renal disease) ([facility] V24, [facility] V28) End stage renal disease documented in this encounter Historical Medications * This list may reflect changes made after this encounter. senna (SENOKOT) 8.6 mg tablet TAKE TWO TABLETS DAILY NEEDED FOR CONSTIPATION 01/30/2023 sucralfate (CARAFATE) 100 mg/mL suspension TAKE 10 ML BY MOUTH EVERY SIX HOURS 11/19/2022 Velphoro 500 mg chewable tablet CHEW ONE TABLET THREE TIMES DAILY WITH MEALS 08/30/2024 witch Larissa 20 % pads, medicated APPLY TO THE AFFECTED AREA(S) NEEDED FOR DISCOMFORT 11/29/2024 Januvia 25 mg tablet Take 1 tablet (25 mg total) by mouth 1 (one) time each day in the morning. meclizine (ANTIVERT) 25 mg tablet TAKE ONE TABLET THREE TIMES DAILY IN THE MORNING, AT NOON, AND AT BEDTIME NEEDED FOR DIZZINESS 01/03/2025 lisinopriL (PRINIVIL,ZESTR IL) 10 mg tablet Take 1 tablet (10 mg total) by mouth 1 (one) time each day. 11/11/2024 Creon 36,000-114,000- 180,000 unit capsule,delayed release(DR/EC) Take by mouth 4 (four) times a day. 01/19/2025 Constulose solution Take 15 mL (10 g total) by mouth if needed. 12/14/2024 ketorolac (ACULAR) 0.5 % ophthalmic solution PLACE ONE DROP IN EACH EYE TWICE DAILY 01/19/2025 ipratropium-alb uteroL (DUONEB) 0.5-2.5 mg/3 mL nebulizer solution 1 uni dose now for wheezing 06/14/2022 insulin aspart (NovoLOG FlexPen) 100 unit/mL (3 mL) injection pen Give 2 units subcutaneously if sugars 150-200, 4 units if 201-250, 6 units if 251-300, 8 units if 301-350, 10 units if 350-400.Call MD if BS above 400 range 05/13/2024 hydrocortisone 1 % ointment APPLY TO THE AFFECTED AREA(S) TWICE DAILY IN THE MORNING AND AT BEDTIME NEEDED FOR ITCHING OR FOR PAIN RECTAL 07/26/2024 gabapentin (NEURONTIN) 100 mg capsule Take 2 capsules orally at bedtime for neuropathy 02/12/2023 Trelegy Ellipta 100-62.5-25 mcg inhaler INHALE ONE PUFF EVERY MORNING, RINSE MOUTH AFTER USE 01/30/2023 fluticasone HFA (FLOVENT HFA) 220 mcg/actuation inhaler Inhale 2 puffs by mouth. 01/29/2023 ferrous sulfate 325 mg (65 mg elemental iron) tablet Take 1 tablet (325 mg total) by mouth 3 times daily. 02/10/2024 erythromycin 5 mg/gram (0.5 %) ophthalmic ointment APPLY IN EACH EYE AND BOTH LIDS AT BEDTIME 06/21/2024 DULoxetine (CYMBALTA) [address] capsule Take 1 capsule (60 mg total) by mouth 1 (one) time each day. docusate sodium (COLACE) 100 mg capsule TAKE ONE CAPSULE TWICE DAILY NEEDED FOR CONSTIPATION 01/30/2023 cycloSPORINE (RESTASIS) 0.05 % ophthalmic emulsion 1 drop every 12 (twelve) hours. 11/23/2019 cyanocobalamin (VITAMIN B-12) 1,000 mcg tablet Take 1 tablet (1,000 mcg total) by mouth 1 (one) time each day. 01/30/2023 cholecalciferol (VITAMIN D-3) 50 mcg (2,000 unit) capsule Take 1 capsule (2,000 Units total) by mouth 1 (one) time each day in the morning. 11/25/2024 candesartan (ATACAND) 16 mg tablet Take 1 tablet (16 mg total) by mouth 1 (one) time each day. Fiber, calcium polycarbophil, 625 mg tablet Take 1 tablet (625 mg total) by mouth 1 (one) time each day. 10/07/2024 blood sugar diagnostic (FreeStyle Lite Strips) test strip USE TO TEST BLOOD SUGAR FOUR TIMES DAILY 12/28/2024 blood pressure test kit-large kit Check blood pressure on arm as directed 11/30/2024 biotin 1 mg capsule as needed OTC atorvastatin (LIPITOR) 40 mg tablet Take 1 tablet (40 mg total) by mouth at bedtime. 01/30/2023 Eliquis 2.5 mg tablet Take 1 tablet (2.5 mg total) by mouth 2 (two) times a day. Stop insulin 3 days prior 01/13/2025 ammonium lactate (LAC-HYDRIN) 12 % lotion use 2 x day 11/25/2019 amLODIPine (NORVASC) 10 mg tablet Take 1 tablet (10 mg total) by mouth at bedtime. 02/07/2020 alendronate (FOSAMAX) 70 mg tablet Take 1 tablet (70 mg total) by mouth every 7 (seven) days. 01/29/2023 Alcohol Prep Pads pads, medicated 01/24/2025 Ventolin HFA 90 mcg/actuation inhaler every 4 (four) hours if needed. acetaminophen (TYLENOL) 325 mg tablet TAKE TWO TABLETS EVERY 8 HOURS NEEDED FOR PAIN ascorbic acid (VITAMIN C) 500 mg tablet Take 1 tablet (500 mg total) by mouth 1 (one) time each day. lansoprazole (PREVACID) [address] capsule Take 1 capsule (30 mg total) by mouth 1 (one) time each day. 01/06/2025 5 famotidine (PEPCID) 20 mg tablet Take 1 tablet (20 mg total) by mouth 1 (one) time each day. 06/29/2024 5 dexlansoprazole (DEXILANT) [address] capsule Take 1 capsule (60 mg total) by mouth. 01/26/20 2 5 acetaminophen (TYLENOL) 325 mg tablet take two tablets by mouth every eight hours as needed for pain 12/28/2024 5 added in this encounter Care Teams Silver Lap Machine Tender Relationship Specialty Start Date End Date Juany Rodriguez MD [address] [place] [phone] PCP - General 04/22/24 documented as of this encounter
--- OUTSIDE RECORDS SUMMARY | 2025-01-25 16:41 | XMS_ITS | Encounter Summary ---
Author Organization [employer] Address [address] [facility] [address] [place] [address] Care Team Providers Care Elementary Education Teacher Name Role Phone Juany Rodriguez MD Primary Care Provider Reason for Visit * Reason Comments Med Refill Encounter Details Date Type Department Care Team ([facility] st Contact Info) Description 08/11/2024 Refill [facility] [address] [place], [place] [phone] Juany Rodriguez MD [address] [place], [place] [phone] Other chronic gastritis without hemorrhage Social History [...] - 08/11/2024 11:34 AM EST Tc from [facility] documented in this encounter Plan of Treatment Upcoming Encounters Date Type Department Care Team ([facility] st Contact Info) Description 03/09/2025 11:00 AM EDT Office Visit [facility] [address] [place] [address] Juany Rodriguez MD [address] [place] [address] documented as of this encounter Visit Diagnoses Diagnosis Other chronic gastritis without hemorrhage documented in this encounter Care Teams Elementary Education Teacher Relationship Specialty Start Date End Date Juany Rodriguez MD [address] [place] [address] PCP - General Family Medicine 09/01/17 Dirk DENNISON 08/13/24 documented as of this encounter
== END 2025-01-25 15:56 | disposition home or self-care (01) ==
LOC: HO.HPS 15:32
PROVIDERS: PCP Pediatrics; Visit Provider Hospitalist
DX: I27.20 Pulmonary hypertension, unspecified (principal); G47.33 Obstructive sleep apnea (adult) (pediatric); J45.40 Moderate persistent asthma, uncomplicated; R06.02 Shortness of breath; I50.32 Chronic diastolic (congestive) heart failure
CPT/HCPCS: 99214; G2211

== ENCOUNTER → 2025-01-25 15:32 | Outpatient (BNVA) | payer OTHER, SELFPAY | PROVIDERS: PCP Pediatrics; Visit Provider Hospitalist | DX: J45.40 Moderate persistent asthma, uncomplicated (principal); I27.20 Pulmonary hypertension, unspecified; I50.32 Chronic diastolic (congestive) heart failure; G47.33 Obstructive sleep apnea (adult) (pediatric); R06.02 Shortness of breath | CPT/HCPCS: 99212 ==

== ENCOUNTER → 2025-03-08 09:34 | Outpatient (REF) | payer OTHER, SELFPAY ==
--- NOTE | 2025-03-08 09:40 | CA_ITS ---
Transthoracic Echocardiogram Patient (Last, First, Middle): Belen Lemus, Gender: Female Date of : 1945 Age: 79 Procedure Date: 03/08/2025 Procedure Type: Transthoracic Echocardiogram Location: OP Height: 154.94 cm Weight: 83.92 kg BSA: 1.83 m2 Heart Rate: bpm BP: 112 / 52 mmHg Regulatory Compliance Specialist: JULIA Referring MD: Alexandre Johnson MD Symptoms: I27.20 - Pulmonary hypertension, unspecified Study Quality: Adequate ECG Rhythm: Sinus Conclusions: - The left ventricular systolic function is normal. The calculated ejection fraction is 64% by biplane method. - Evidence suggests grade II (moderate) diastolic dysfunction. - There is moderate mitral annular calcification. - The right ventricular systolic pressure is 50 mmHg. Mild pulmonary hypertension is present. Findings Left Ventricle Normal left ventricular cavity size. There is normal left ventricular wall thickness. The left ventricular systolic function is normal. The calculated ejection fraction is 64% by biplane method. There is no evidence of regional wall motion abnormalities. Evidence suggests grade II (moderate) diastolic dysfunction. Possible basal inferior wall hypokinesis. Right Ventricle Mildly increased right ventricular cavity size. There is normal right ventricular systolic function. Atria The left atrium is moderately dilated. The right atrium is mildly dilated. Aortic Valve There is a normal trileaflet aortic valve. There is no aortic valve stenosis. There is no aortic valve regurgitation. Mitral Valve There is moderate mitral annular calcification. There is trace mitral valve regurgitation. There is no mitral valve stenosis. Pulmonic Valve The pulmonic valve is likely normal. Tricuspid Valve There is trace tricuspid valve regurgitation. The right ventricular systolic pressure is 50 mmHg. Mild pulmonary hypertension is present. Great Vessels The asc aorta is normal in size. Venous The inferior vena cava is normal in size and collapses less than 50% with inspiration. Pericardium/Pleural There is no evidence of pericardial effusion. Prior Study Comparison No significant change compared to prior study dated: 01/29/2023. Measurements 2D Linear Measurements IVSd: 0.94 0.6-0.9/0.6-1.0 cm LVIDd: 4.66 3.9-5.3/4.2-5.9 cm LVIDd Index: 2.55 2.4-3.2/2.2-3.1 cm/m2 LVIDs: 3.16 2.0-3.6 cm LVPWd: 1.06 0.7-1.1 cm LA Diam: 3.40 2.7-3.8/3.0-4.0 cm LAIDs Index: 1.86 1.5-2.3 cm/m2 LV Mass: 201.29 67-162/88-224 g LV Mass Index: 109.99 43-95/49-115 g/m2 LVOT Diam: 2.00 3.0+(-)1.3 cm 2D Systolic Function EF 4C: 68.80 >55% EF 2C: 58.30 >55% EF BiP: 63.70 >55% Mitral Valve MV Pk E: 1.49 MV PK A: 0.80 MV Decel Time: 278.00 E/A: 1.90 E'Lateral: 7.07 E'Medial: 4.68 E/E' Med: 31.80 E/E' Lat: 21.10 PHT: 81.00 MVA PHT: 2.72 Decel Alcorn: 5.36 Aortic Valve AoV Pk Son: 1.40 AoV Mn Son: 0.88 AoV VTI: 0.38 AoV Pk Grad: 8.00 Aov Mn Grad: 4.00 GERSON Cont.VTI: 1.74 LVOT LVOT Pk Son: 0.92 LVOT Mn Son: 0.68 LVOT VTI: 0.21 LVOT Pk Grad: 3.00 LVOT Mn Grad: 2.00 LVOT Diam: 2.00 LVOT Area: 3.14 Diastolic Function MV Pk E: 1.49 MV Pk A: 0.80 E/A: 1.90 E'Medial: 4.68 E/E' Med: 31.80 E' Laterial: 7.07 E/E' Lat: 21.10 Right Ventricle TAPSE (mm): 24.00 TVS' Son: 10.80 Tricuspid Valve TR Pk Son: 3.24 TR Pk Grad: 42.00 RA Press: 8.00 RVSP: 50.00 Great Vessels Aorta Sinus of Valsalva: 2.81 2.0-3.[address] Ridge: 2.07 1.7-3.4 cm Ao Asc: 3.00 2.1-3.4 cm Updated in Other Vendor System with Status of Final Josemanuel Wheeler MD electronically signed on 03/10/2025 8:16:08 AM with status of Final
--- OUTSIDE RECORDS SUMMARY | 2025-03-08 10:21 | XMS_ITS | Encounter Summary ---
Author Organization [employer] Address [address] [facility] [address] [place] [address] Care Team Providers Care Crystal Lapper Name Role Phone Juany Rodriguez MD Primary Care Provider [phone] Reason for Visit * Reason Onset Date Comments Nurse Triage 08/20/2023 Encounter Details Date Type Department Care Team (Late st Contact Info) Description 08/20/2023 Telephone [facility] [address] [place] [address] Juany Rodriguez MD [address] [place] [address] Nurse Triage Social History Tobacco Use Types [...] 08/20/2023 10:38 AM EST Triage call Pt grandaughTish schwartz HIPPA, reports for last 2 days Pt has been halucinating. Pt reports pictures falling off the wall, curtains falling which are not actually occurring. PtBP is 183/95 at time of call, continues with lopresser 50mg po. Pt denies urinary symptoms. Neg forfever or ZEV sx. Pt is going for blood draw at 100pm today. Declines to come to [facility] at [facility]. No aptsavailable in [place] today will obtain insted visit with [facility] insurance present. Tish agrees to this plan [...] caller accepted this outcome Please contact Tish [phone] documented in this encounter Plan of Treatment Not on file documented as of this encounter Visit Diagnoses Not on filedocumented in this encounter Care Teams Crystal Lapper Relationship Specialty Start Date End Date Juany Rodriguez MD [address] [place] [id number] PCP - General Family Medicine 09/01/17 Dirk DENNISON 08/13/24 documented as of this encounter
== END ==
LOC: HO.CARD 09:34
PROVIDERS: PCP Pediatrics; Visit Provider Hospitalist
DX: I27.20 Pulmonary hypertension, unspecified (principal); I50.32 Chronic diastolic (congestive) heart failure
CPT/HCPCS: 93306

== ENCOUNTER → 2025-03-08 09:40 | Outpatient (BNV) | payer OTHER, SELFPAY | PROVIDERS: PCP Pediatrics; Visit Provider Internal Medicine | DX: I27.20 Pulmonary hypertension, unspecified (principal); I34.81 Nonrheumatic mitral (valve) annulus calcification; I51.89 Other ill-defined heart diseases | CPT/HCPCS: 93306 ==

== ENCOUNTER 2025-03-14 11:57 | Inpatient (IN) | payer OTHER, SELFPAY ==
[2025-03-14] VITALS (7 sets, daily range): BP systolic 108–145; BP diastolic 32–70; PULSE 59–78; RESP 16–20; TEMP 36.2–36.6; O2SAT 95–98; BMI 37.1; BMI 36.6
--- NOTE | 2025-03-14 | ECG_ITS ---
Test Reason : FALL Blood Pressure : */* mmHG Vent. Rate : 67 BPM Atrial Rate : 67 BPM P-R Int : 188 ms QRS Dur : 86 ms QT Int : 404 ms P-R-T Axes : 87 81 80 degrees QTcB Int : 426 ms Normal sinus rhythm Normal ECG When compared with ECG of 03-Aug-2024 11:29, No significant change was found Referred By: Generic ED Physician Electronically Signed By: CORRY DEL RIO
--- NOTE | ~2025-03-14 | XR_ITS ---
EXAMINATION: XR KNEE, LEFT CLINICAL INFORMATION: Fall , knee pain COMPARISON: None available. TECHNIQUE: Four views of the left knee. FINDINGS: There is mild osteopenia. No definite fracture, dislocation, or suspicious bone lesion. Moderate to severe medial compartment osteoarthrosis with subchondral sclerosis, and marginal osteophytic spurring. There is mild compensatory widening of the lateral compartment, and minimal varus angulation of the joint. There are superior and small inferior patellar enthesophytes. There is a moderate to large suprapatellar joint effusion. XR/XR knee LT 3V IMPRESSION: 1. No definite fracture or dislocation. 2. Tricompartmental osteoarthritis, moderate to severe in the medial compartment. 3. Moderate to large suprapatellar joint effusion. Electronically signed by: Kevon Apple MD 03/14/2025 03:28 PM EDT
--- NOTE | ~2025-03-14 | CT_ITS ---
EXAMINATION: CT HEAD WITHOUT CONTRAST CLINICAL INFORMATION: fall COMPARISON: September 26, 2019 TECHNIQUE: Contiguous axial imaging was performed from the skull base to vertex without intravenous administration of contrast. This CT examination was performed using dose optimization techniques as appropriate, variously including the following: *Automated exposure control *Adjustment of mA and/or kV according to patient size (this includes techniques or standardized protocols for targeted exams where dose is matched to indication/reason for exam; i.e. extremities or head) *Use of iterative reconstruction technique DLP: 774.87 mGy-cm FINDINGS: Soft tissue contusion, left forehead. No acute cortical disruption, bony calvarium or the skull base. Old traumatic deformities, nasal bones. No acute intracranial hemorrhage, mass effect, midline shift, hydrocephalus or herniation. Bilateral multifocal patchy deep periventricular white matter centrum semiovale and madrigal radiata. Focal encephalomalacia, right parietal pole likely prior vascular insult. Multifocal old lacunar infarcts, basal ganglia and extracapsular. Calcified plaques in the cavernous supracavernous segments both ICAs. Shannon-white matter differentiation is normal. Posterior cranial fossa contents demonstrated no acute intracranial hemorrhage. Sellar/suprasellar region demonstrated no gross masses. Craniocervical junction demonstrates normal position of the cerebellar tonsils. Edentulous, maxilla. CT/CT head/brain wo IV con IMPRESSION: No acute fracture, bony calvarium. No acute intracranial hemorrhage. Small vessel occlusive disease. Prior vascular insult right MCA territory. Soft tissue contusion, left forehead. Atherosclerosis disease. Electronically signed by: Osmel Montano MD 03/14/2025 02:31 PM EDT
--- NOTE | ~2025-03-14 | XR_ITS ---
EXAMINATION: XR ANKLE 1-2 VIEWS LEFT HISTORY: Fall COMPARISON: There are no prior studies available for comparison. FINDINGS: Three views of the left ankle are submitted. The bones are osteopenic. A well-corticated osseous density is noted adjacent to the tip of the medial malleolus which is likely the result of old trauma. No acute fracture or dislocation is seen. The joint spaces are preserved. There are vascular calcifications. XR/XR ankle LT 2V IMPRESSION: Osteopenia. No evidence of acute fracture of the left ankle. Electronically signed by: Jas Gramajo MD 03/14/2025 03:17 PM EDT
--- NOTE | ~2025-03-14 | CT_ITS ---
EXAMINATION: CT CERVICAL SPINE WITHOUT CONTRAST CLINICAL INFORMATION: Fall, trauma DLP: 639 mGY*cm COMPARISON: November 10, 2019 MRI TECHNIQUE: Axial imaging was performed from the base of the skull through T2 without IV contrast. Coronal and sagittal reformatted images were generated from the original axial data set. This CT examination was performed using dose optimization techniques as appropriate, variously including the following: *Automated exposure control *Adjustment of mA and/or kV according to patient size (this includes techniques or standardized protocols for targeted exams where dose is matched to indication/reason for exam; i.e. extremities or head) *Use of iterative reconstruction technique FINDINGS: Versus calcification is present in the disc spaces at C2-3, C4, C4-5, C5-6, likely pyrophosphate in nature. Facet joint space narrowing and osteophytes are present in the lower cervical spine. Is mild straightening of cervical lordosis. Degenerative endplate irregularities are present at C3-4 and C5-6. Severe degenerative changes are present at T3-4 and T4-5. There is no prevertebral edema. Right IJ central line is now completely imaged on this exam. Lung apexes are obscured by motion artifact. There is solid pulmonary nodule in the left apex measuring [address]/CT cervical spine wo IV con IMPRESSION: Multilevel degenerative disc disease and facet arthropathy. 5 x 8 mm solid pulmonary nodule in the left apex. Fleischner Society recommendation: CT chest without contrast in 6-12 months, then optional CT at 18-24 months. If high risk, then CT at 18-24 months is not optional but is recommended. High risk patients includes those with a history of smoking, first-degree relative with lung cancer, or exposure to uranium, radon, or asbestos. Electronically signed by: Cal Pathak MD 03/14/2025 02:40 PM EDT
--- NOTE | ~2025-03-14 | XR_ITS ---
EXAMINATION: XR SHOULDER 2 OR MORE VIEWS RIGHT HISTORY: Fall COMPARISON: Comparison is made with the prior examination dated 03/16/2024. FINDINGS: Three views of the right shoulder are submitted. Osseous mineralization is normal. There is a comminuted impacted fracture of the humeral neck. The greater tuberosity is a separate fragment. The glenohumeral joint is maintained. There is mild degenerative change of the AC joint. The soft tissues are unremarkable. Are submitted diagnosis catheter is noted. XR/XR shoulder RT min 2V IMPRESSION: Comminuted impacted fracture of the humeral neck. Electronically signed by: Jas Gramajo MD 03/14/2025 03:15 PM EDT
--- NOTE | 2025-03-14 12:46 | ED.FALL ---
HPI - Fall General Chief Complaint: Fall Stated Complaint: FALL WITH HEAD STRIKE Time Seen by Provider: 03/14/25 12:42 Source: patient, family (Daughter), EMS and relations director Mode of arrival: EMS Limitations: no limitations History of Present Illness ED Provider: DR. Lin HPI Narrative: 79-year-old female on Eliquis, end-stage renal dialysis on HD on her way to HD today patient sustained a mechanical fall talk causing the patient to fall off the wheelchair is down oozing superficial scratches on her face and forehead, complaining of right shoulder pain, left knee pain, left ankle pain. No LOC, no weakness, no numbness. Related Data Home Medications ?Medication ?Instructions ?Recorded ?Confirmed atorvastatin 40 mg tablet 40 mg PO BEDTIME 11/27/20 01/14/25 docusate sodium 100 mg capsule 100 mg PO BID PRN constipation 11/27/20 01/14/25 gabapentin 100 mg capsule 200 mg PO BEDTIME 11/27/20 01/14/25 simethicone 180 mg capsule 180 mg PO TID PRN Constipation 11/27/20 01/14/25 nebulizers 04/02/23 01/14/25 ammonium lactate 12 % topical cream 1 appl topical DAILY 12/02/23 01/14/25 meclizine 25 mg tablet 25 mg PO DAILY PRN Dizziness 12/02/23 01/14/25 peg [id number]-[id number] 1 1 drp ophthalmic (eye) DAILY PRN 12/02/23 01/14/25 %-0.2 %-0.2 % eye drops Dry Eye(S) (Artificial Tears ([id number])) cholecalciferol (vitamin D3) 50 50 mcg PO DAILY 12/04/23 01/14/25 mcg (2,000 unit) capsule omega-3 300 mg-dha 120 mg-epa 180 1 cap PO DAILY 12/04/23 01/14/25 mg-fish oil 1,000 mg capsule famotidine 20 mg tablet 20 mg PO DAILY 01/01/24 01/14/25 sennosides 8.6 mg tablet (senna) 8.6 - 17.2 mg PO DAILY 01/01/24 01/14/25 cyanocobalamin (vitamin B-12) 1,000 mcg PO DAILY 02/09/24 01/14/25 1,000 mcg tablet ketorolac 0.5 % eye drops 1 drp ophthalmic (eye) DAILY PRN 02/09/24 01/14/25 Dry Eye(S) acetaminophen 325 mg tablet 650 mg PO DAILY PRN Pain (Scale 04/13/24 01/14/25 Score 1-3) blood sugar diagnostic (FreeStyle #10 ea 04/13/24 01/14/25 Lite Strips) calcium polycarbophil 625 mg 625 mg PO DAILY 04/13/24 01/14/25 tablet (Fiber (calcium polycarbophil)) sucralfate 1 gram tablet 1 g PO DAILY 04/13/24 01/14/25 insulin aspart U-100 100 unit/mL See Protocol subcut .TIDPC 06/14/24 01/14/25 (3 mL) subcutaneous pen (Novolog FlexPen U-100 Insulin aspart) hydrocortisone 1 % topical ointment 1 appl topical DAILY PRN itch 08/03/24 01/14/25 multivitamin-ferrous 1 tab PO DAILY 08/03/24 01/14/25 fumarate-folic acid 18 mg-400 mcg tablet (Centrum Women) sitagliptin phosphate 50 mg tablet 50 mg DAILY 08/03/24 01/14/25 (Januvia) sodium polystyrene sulfonate 15 g PO BEDTIME PRN Hyperkalemia 08/03/24 01/14/25 vit C 250 mg-E 90 mg-zinc 40 1 tab PO BID 08/03/24 01/14/25 mg-copper 1 ub-aifglf-utecms chew tablet (PreserVision AREDS-2) Previous Rx's ?Medication ?Instructions ?Recorded furosemide 40 mg tablet 40 mg PO DAILY #90 tabs 01/23/21 inhalational spacing device #1 ea 06/18/22 (Vortex Holding Chamber) amlodipine 10 mg tablet 10 mg PO DAILY #90 tabs 09/30/22 albuterol sulfate 2.5 mg/3 mL 2.5 mg (3 mL) inhalation Q4H PRN 11/18/22 (0.083 %) solution for nebulization for wheezing #180 mL polyethylene glycol 3350 17 17 g PO BID PRN constipation 30 05/21/24 gram/dose oral powder (Miralax) days #1,020 grams lisinopril 10 mg tablet 10 mg PO DAILY #90 tabs 11/11/24 lactulose 10 gram/15 mL oral 10 g (15 mL) PO DAILY PRN 12/14/24 solution constipation #237 mL apixaban 2.5 mg tablet (Eliquis) 2.5 mg PO BID 90 days #180 tabs 01/13/25 metoprolol tartrate 50 mg tablet 50 mg PO BID 90 days #180 tabs 01/14/25 sildenafil (pulm.hypertension) 20 20 mg PO TID 90 days #270 tabs 01/14/25 mg tablet yhlqui-iuuiepbs-kgxinyn 1 cap PO QID #120 caps 01/19/25 36,000-114,000-180,000 unit capsule,delay rel (Creon) albuterol sulfate 90 mcg/actuation 2 puff inhalation Q4H PRN 01/25/25 aerosol inhaler (Ventolin HFA) Wheezing/SOB 30 days #8.5 grams fluticasone fur. 200 mcg-umeclid 1 inh inhalation DAILY 30 days #60 01/25/25 62.5 mcg-vilant 25 mcg ea inhalat.powder (Trelegy Ellipta) lansoprazole 30 mg capsule,delayed 30 mg PO DAILY #30 caps 01/31/25 release Allergies Allergy/AdvReac Type Severity Reaction Status Date / Time faviola (FAVIOLA) AdvReac Intermediate NAUSEA & Verified 03/14/25 12:13 VOMITING Penicillins (PENICILLINS) AdvReac Unknown NAUSEA & Verified 03/14/25 12:13 VOMITING YUCA Allergy Unknown NAUSEA & Uncoded 03/14/25 12:13 VOMITING SARDINES AdvReac Intermediate NAUSEA & Uncoded 03/14/25 12:13 VOMITING Review of Systems Review of Systems: All other systems are reviewed and are negative Constitutional: Reports as per HPI and Reports no additional constitutional complaints Eyes: Reports as per HPI and Reports no additional eye complaints Reports system reviewed and no additional complaints, except as documented Cardiovascular: Reports as per HPI and Reports no additional cardiovascular complaints Respiratory: Reports as per HPI and Reports no additional respiratory complaints Gastrointestinal: Reports as per HPI and Reports no additional gastrointestinal complaints Genitourinary: Reports no additional female genitourinary complaints Musculoskeletal: Reports no additional musculoskeletal complaints Skin/Breast: Reports system reviewed and no additional complaints, except as docu Psychiatric: Reports no additional psychiatric complaints Endocrine: Reports no additional endocrine complaints Hematologic/Lymphatic: Reports no additional hematologic/lymphatic complaints Allergic/Immunologic: Reports no additional allergic/immunologic complaints Reports system reviewed and no additional complaints, except as documented and Reports Abnormal speech present [facility] Past Medical History Medical History Chronic kidney disease Shortness of breath Chest discomfort Exocrine pancreatic insufficiency ANKIT (obstructive sleep apnea) Asthma Pulmonary hypertension Vasovagal syncope Type 2 diabetes mellitus with unspecified complications Essential hypertension PAF (paroxysmal atrial fibrillation) Cardiomyopathy Surgical History No pertinent past surgical history Family History Family History Father No problems noted. Mother No problems noted. Social History Social History Household Members: Family Housing: House Do you presently have visiting nurse or other home services: Yes (dredge master) Alcohol intake: never Patient Tobacco Use Status: Never used Tobacco Smoked in Last 30 Days: No Use of substances other than those prescribed or required for medical reasons: No Advance Directives: No Advance Directives Information Provided: Yes Do you have a plan to hurt others: No Plan service: No Physical Exam Vital Signs: Vital Signs: Last Vital Signs Temp 97.9 F 03/14/25 14:17 Pulse 70 03/14/25 14:52 Resp 18 03/14/25 14:52 BP 136/42 L 03/14/25 14:52 Pulse Ox 96 03/14/25 14:52 O2 Del Method Room Air 03/14/25 14:52 BMI result Body Mass Index 37.1 Vital signs have been reviewed and appear to be correct. Blood pressure elevated. Heart rate normal. Respiratory rate normal. Temperature normal. Oxygen saturation normal. Appearance: Alert. Oriented X3. No acute distress. Head: Normal external exam. Normocephalic. Atraumatic. No Kingsley signs noted. No raccoon eyes noted Eyes: PERRLA. EOMI. Conjunctiva and sclera normal. Eyelids normal. ENT: TM's Normal. Pharynx normal. Uvula midline. Moist mucous membranes. No trismus noted. No drooling noted. No muffled voice noted. Neck: Normal inspection. Neck supple. FROM. No adenopathy. Thyroid Normal. No meningeal signs. No neck mass noted. CVS: Normal heart rate and rhythm. Heart sound normal. No murmurs noted. Pulses normal throughout. Respiratory: No respiratory distress. Painless inspiration. Breath sounds normal. No wheezes/rales/rhonchi noted. Chest nontender. No accessory muscle usage noted or decreased air movement noted. Abdomen: Soft and nontender. Bowel sounds normal in all 4 quadrants. No distention noted. No organomegaly noted. No visible injury noted. Back: No CVA tenderness. Full range of motion noted. Skin: Skin warm and dry. Normal skin color. Normal skin turgor. No rashes/lesions/lacerations noted. Extremities: Right shoulder tenderness, no deformity, held in adduction position with tender abduction, neurovascularly intact. Left lower extremity exam: Lateral malleolar tenderness, left knee superficial abrasion with tenderness with no step-off. Neuro: Oriented X 3. Cranial nerve exam: II-XII are grossly intact No motor deficit. No sensory deficit. Reflexes normal. Course Reevaluation(s) Reevaluation #1: Hyperkalemia needs stat dialysis. Received insulin/calcium gluconate /bicarb. No EKG changes. Patient will be admitted and get dialyzed as an inpatient. Right shoulder comminuted fracture sling and follow-up with ortho. Will admit to medical floor for a dialysis. Head/cervical spine shows severe osteopenia with no acute fracture. Left knee/ankle x-ray shows no fracture. Medications Administered Generic Name Dose Route Start Last Admin Trade Name Freq PRN Reason Stop Dose Admin Calcium Gluconate 2 gm in 100 mls @ 50 mls/hr 03/14/25 14:03/14/25 14:41 Calcium Gluconate IV 03/14/25 16:08 50 mls/hr ONCE ONE Administration Discontinued Medications Generic Name Dose Route Start Last Admin Trade Name Freq PRN Reason Stop Dose Admin Insulin Human Regular 5 unit 03/14/25 14:03/14/25 14:41 Insulin Regular, Human 100 Unit/Ml 10 Ml Vial IVPUSH 03/14/25 14:10 5 unit ONCE ONE Administration Sodium Bicarbonate 50 meq 03/14/25 14:03/14/25 14:41 Sodium Bicarbonate 8.4% 50 Meq/50 Ml Syringe IVPUSH 03/14/25 14:10 50 meq ONCE ONE Administration Medical Decision Making Differential Diagnosis Differential Diagnoses: The differential diagnosis associated with the presentation includes (Electrolyte derangement, right shoulder fracture, left knee fracture, left ankle fracture, intracranial bleed, cervical spine fracture, hyperkalemia.) Admission/Observation Consideration of admission/observation: Escalation of care including admission/observation considered Consult Healthcare Provider Management of the patient was discussed with: Hospitalist (Dr. Covington) and Maintenance Instructor (Dr. Mccartney) Lab Data MDM Lab Attestation statement: I reviewed the patient's lab results. 03/14/25 13:20 03/14/25 13:20 Labs: Lab Results 03/14/25 03/14/25 03/14/25 Range/Units 13:20 13:23 14:40 WBC 9.5 (4.8-10.8) X10*3/uL RBC 2.88 L D (4.20-5.50) X10*6/uL Hgb 9.3 L (12.0-16.0) g/dl Hct 28.5 L D (37.0-47.0) % MCV 99.0 H (80.0-98.0) fL MCH 32.3 (27.0-33.0) pg MCHC 32.6 (31.0-35.0) g/dl RDW 15.6 (11.0-16.0) % Plt Count 117 L (160-400) X10*3/uL MPV 10.3 (9.4-12.3) fL Immature Gran % (Auto) 0.5 H (0.0-0.4) % Neut % (Auto) 84.1 H (45-73) % Lymph % (Auto) 7.0 L (20-40) % [place] % (Auto) 4.3 (2-11) % Eos % (Auto) 3.6 (0-4) % Baso % (Auto) 0.5 (0-2) % Lymph # (Auto) 0.7 L (1.2-4.9) X10*3/uL [place] # (Auto) 0.4 (0.1-1.2) X10*3/uL Eos # (Auto) 0.3 (0.0-0.4) X10*3/uL Baso # (Auto) 0.1 (0.0-0.2) X10*3/uL Abs Immat Gran (auto) 0.05 H (0.00-0.03) X10*3/uL Absolute Neuts (auto) 8.0 (2.0-8.3) x10*3/uL Absolute Nucleated RBC 0.000 (0.0-0.012) X10*3/uL Nucleated RBC % (auto) 0.0 (0.0-0.2) /100WBC PT 11.5 (10.9-12.4) SEC INR 1.0 (0.9-1.1) APTT 27.6 D (26.0-36.8) SEC Sodium 137 (135-145) mmol/L Potassium 7.6 H* D (3.3-5.1) mmol/L Chloride 101 (96-108) mmol/L Carbon Dioxide 24 (22-29) mmol/L Anion Gap 20 (12-20) BUN 123 H (9-16) mg/dL Creatinine 7.76 H* (0.5-1.4) mg/dL Estim Creat Clear Calc 5.6 Estimated GFR 5 POC Glucose 280 H 275 H (60-115) mg/dL Random Glucose 296 H (60-115) mg/dL Calcium 8.8 (8.4-10.2) mg/dL Magnesium 2.9 H (1.6-2.6) mg/dL Total Bilirubin 0.4 (0.0-1.0) mg/dL AST 13 (5-31) U/L ALT 11 (0-31) U/L Alkaline Phosphatase 65 (39-117) U/L Troponin I High Sens 8.6 (<3.5-17.0) ng/L Total Protein 6.9 (6.5-8.0) g/dL Albumin 3.9 (3.5-5.0) g/dL 03/14/25 Range/Units 15:15 WBC (4.8-10.8) X10*3/uL RBC (4.20-5.50) X10*6/uL Hgb (12.0-16.0) g/dl Hct (37.0-47.0) % MCV (80.0-98.0) fL MCH (27.0-33.0) pg MCHC (31.0-35.0) g/dl RDW (11.0-16.0) % Plt Count (160-400) X10*3/uL MPV (9.4-12.3) fL Immature Gran % (Auto) (0.0-0.4) % Neut % (Auto) (45-73) % Lymph % (Auto) (20-40) % [place] % (Auto) (2-11) % Eos % (Auto) (0-4) % Baso % (Auto) (0-2) % Lymph # (Auto) (1.2-4.9) X10*3/uL [place] # (Auto) (0.1-1.2) X10*3/uL Eos # (Auto) (0.0-0.4) X10*3/uL Baso # (Auto) (0.0-0.2) X10*3/uL Abs Immat Gran (auto) (0.00-0.03) X10*3/uL Absolute Neuts (auto) (2.0-8.3) x10*3/uL Absolute Nucleated RBC (0.0-0.012) X10*3/uL Nucleated RBC % (auto) (0.0-0.2) /100WBC PT (10.9-12.4) SEC INR (0.9-1.1) APTT (26.0-36.8) SEC Sodium (135-145) mmol/L Potassium (3.3-5.1) mmol/L Chloride (96-108) mmol/L Carbon Dioxide (22-29) mmol/L Anion Gap (12-20) BUN (9-16) mg/dL Creatinine (0.5-1.4) mg/dL Estim Creat Clear Calc Estimated GFR POC Glucose 262 H (60-115) mg/dL Random Glucose (60-115) mg/dL Calcium (8.4-10.2) mg/dL Magnesium (1.6-2.6) mg/dL Total Bilirubin (0.0-1.0) mg/dL AST (5-31) U/L ALT (0-31) U/L Alkaline Phosphatase (39-117) U/L Troponin I High Sens (<3.5-17.0) ng/L Total Protein (6.5-8.0) g/dL Albumin (3.5-5.0) g/dL Independent Interpretation I performed an independent interpretation of an: Plain X-Ray (Right shoulder/left knee/left ankle:Comminuted impacted fracture of the humeral neck. ) and CT Scan (Head/cervical spine:Multilevel degenerative disc disease and facet arthropathy. 5 x 8 mm solid pulmonary nodule in the left apex. Fleischner Society recommendation: CT chest without contrast in 6-12 months, then optional CT at 18-24 months. If high risk, then CT at 18-24 months is not option) Radiology Impression Discussion of test interpretation with radiology: I have reviewed the radiologist's reading. Chronic Conditions Patient?s care impacted by: Other ( hemodialysis) Critical Care Time Critical Care Time Critical Care Time: Yes Total Critical Care Time: 60 Attestation: The patient was critically ill with a high probability of imminent or life-threatening deterioration. I spent greater than 30 minutes of discontinuous time evaluating the patient, delivering critical care at the bedside, discussing evaluating data with consultants. Critical care time does not include time spent performing separately billable procedures or teaching. Time spent performing critical care was 60 minutes. Discharge Plan Discharge Clinical Impression: Acute hyperkalemia, Closed fracture of shoulder Patient Disposition: Admitted As Inpatient Print Language: Danish
--- NOTE | 2025-03-14 12:56 | PC.NURSE ---
Panamanian speaking. [employer] services utilized. Patient on eliquis. No BPs in left arm. + bruit/thrill. Dialysis port on right chest. C collar in place. Patient presents to ED after a fall while heading to dialysis. Dialysis --. Patient was in a wheelchair, when the wheel hit a crack and the patient fell out of the chair. +headstrike denies LOC, n/v, and vision changes. Small lacerations noted on bridge of nose and forehead, slight swelling noted on forehead. Patient also c/o of right shoulder and left ankle pain. +CMS limited ROM in right shoulder. VSS and up to date. Provider in to see patient. Plan of care on going
[2025-03-14 13:25] LABS: MANUAL DIFF FLAG NO
[2025-03-14 13:26] LABS: Glucose, Whole Blood 280 mg/dL (60-115)
[2025-03-14 13:27] LABS: Basophils Absolute Auto 0.1 X10*3/uL (0.0-0.2); Basophils Percent Auto 0.5 % (0-2); Eosinophils Absolute Auto 0.3 X10*3/uL (0.0-0.4); Eosinophils Percent Auto 3.6 % (0-4); Hematocrit 28.5 % (37.0-47.0); Hemoglobin 9.3 g/dl (12.0-16.0); Imm Gran Abs Auto 0.05 X10*3/uL (0.00-0.03); Imm Gran Pct Auto 0.5 % (0.0-0.4); Lymphocytes Absolute Auto 0.7 X10*3/uL (1.2-4.9); Mean Corpuscular HGB Conc 32.6 g/dl (31.0-35.0); Mean Corpuscular Hemoglobin 32.3 pg (27.0-33.0); Mean Platelet Volume 10.3 fL (9.4-12.3); Monocytes Absolute Auto 0.4 X10*3/uL (0.1-1.2); Monocytes Percent Auto 4.3 % (2-11); Neutrophils Percent Auto 84.1 % (45-73); Platelet Count 117 X10*3/uL (160-400); Red Blood Count 2.88 X10*6/uL (4.20-5.50); Red Cell Distribution Width 15.6 % (11.0-16.0); White Blood Count 9.5 X10*3/uL (4.8-10.8)
[2025-03-14 13:35] LABS: Prothrombin Time 11.5 SEC (10.9-12.4)
[2025-03-14 13:37] LABS: Partial Thromboplastin Time 27.6 SEC (26.0-36.8)
[2025-03-14 13:52] LABS: Troponin-I High Sensitivity 8.6 ng/L (<3.5-17.0)
[2025-03-14 14:03] LABS: Alanine Aminotransferase 11 U/L (0-31); Albumin Level 3.9 g/dL (3.5-5.0); Alkaline Phosphatase 65 U/L (39-117); Anion Gap 20 (12-20); Aspartate Amino Transferase 13 U/L (5-31); Bilirubin Total 0.4 mg/dL (0.0-1.0); Blood Urea Nitrogen 123 mg/dL (9-16); Calcium 8.8 mg/dL (8.4-10.2); Carbon Dioxide 24 mmol/L (22-29); Chloride 101 mmol/L (96-108); Creatinine Clr Calc Pharmacy 5.6; Estimated Glomerular Filt Rate 5; Glucose Random 296 mg/dL (60-115); Magnesium 2.9 mg/dL (1.6-2.6); Potassium 7.6 mmol/L (3.3-5.1); Sodium 137 mmol/L (135-145); Total Protein 6.9 g/dL (6.5-8.0)
--- NOTE | 2025-03-14 14:29 | PM.CNNEP ---
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 Presented to ED 03/14 after a fall on her way into outpatient dialysis. She and her daughter explain she was in her wheelchair and it got stuck on the curb and she fell forward and hit her head on the pavement. She states her left foot also hurts. Nephrology following for ESRD on HD management while in hospital. she states she has not missed any dialysis sessions, except for today due to fall on her way in to HD facility. states she has a headache and nausea since hitting her head, as well as foot pain since fall. She denies other new symptoms/concerns at this time. Review of Systems Constitutional: Reports headache(s) and Reports malaise Reports headache(s) and Reports neck pain Cardiovascular: Denies chest pain, Denies leg edema and Denies dyspnea Respiratory: Denies dyspnea Gastrointestinal: Denies abdominal pain, Denies constipation, Denies diarrhea, Reports nausea and Denies vomiting Genitourinary: Denies hematuria and Denies dysuria Musculoskeletal: Reports neck pain Comments: neck pain, left foot pain Comments: multiple abrasions on face- hematoma on forehead. Reports headache(s) PMFSH Past Medical History Medical History Chronic kidney disease Shortness of breath Chest discomfort Exocrine pancreatic insufficiency ANKIT (obstructive sleep apnea) Asthma Pulmonary hypertension Vasovagal syncope Type 2 diabetes mellitus with unspecified complications Essential hypertension PAF (paroxysmal atrial fibrillation) Cardiomyopathy Family History Family History Father No problems noted. Mother No problems noted. Surgical History Surgical History No pertinent past surgical history Social History Social History Household Members: Family Housing: House Do you presently have visiting nurse or other home services: Yes (analytics specialist) Alcohol intake: never Patient Tobacco Use Status: Never used Tobacco Smoked in Last 30 Days: No Use of substances other than those prescribed or required for medical reasons: No Advance Directives: No Advance Directives Information Provided: Yes Do you have a plan to hurt others: No Plan service: No Meds Allergies Allergy/AdvReac Type Severity Reaction Status Date / Time faviola (FAVIOLA) AdvReac Intermediate NAUSEA & Verified 03/14/25 12:13 VOMITING Penicillins (PENICILLINS) AdvReac Unknown NAUSEA & Verified 03/14/25 12:13 VOMITING YUCA Allergy Unknown NAUSEA & Uncoded 03/14/25 12:13 VOMITING SARDINES AdvReac Intermediate NAUSEA & Uncoded 03/14/25 12:13 VOMITING Active Medications: Current Medications Calcium Gluconate (Calcium Gluconate) 2 gm in 100 mls @ 50 mls/hr IV ONCE ONE Stop: 03/14/25 16:08 Home Medications ?Medication ?Instructions ?Recorded ?Confirmed ?Last Taken ?Type atorvastatin 40 mg tablet 40 mg PO BEDTIME 11/27/20 01/14/25 08/02/24 History docusate sodium 100 mg capsule 100 mg PO BID PRN constipation 11/27/20 01/14/25 Unknown History gabapentin 100 mg capsule 200 mg PO BEDTIME 11/27/20 01/14/25 08/03/24 10:21 History simethicone 180 mg capsule 180 mg PO TID PRN Constipation 11/27/20 01/14/25 Unknown History nebulizers 04/02/23 01/14/25 Unknown History ammonium lactate 12 % topical cream 1 appl topical DAILY 12/02/23 01/14/25 08/03/24 10:21 History meclizine 25 mg tablet 25 mg PO DAILY PRN Dizziness 12/02/23 01/14/25 Unknown History peg [id number] 1 1 drp ophthalmic (eye) DAILY PRN 12/02/23 01/14/25 Unknown History %-0.2 %-0.2 % eye drops Dry Eye(S) (Artificial Tears ([id number])) cholecalciferol (vitamin D3) 50 50 mcg PO DAILY 12/04/23 01/14/25 08/03/24 10:21 History mcg (2,000 unit) capsule omega-3 300 mg-dha 120 mg-epa 180 1 cap PO DAILY 12/04/23 01/14/25 08/03/24 10:21 History mg-fish oil 1,000 mg capsule famotidine 20 mg tablet 20 mg PO DAILY 01/01/24 01/14/25 08/03/24 10:21 History sennosides 8.6 mg tablet (senna) 8.6 - 17.2 mg PO DAILY 01/01/24 01/14/25 08/03/24 10:21 History cyanocobalamin (vitamin B-12) 1,000 mcg PO DAILY 02/09/24 01/14/25 08/03/24 10:21 History 1,000 mcg tablet ketorolac 0.5 % eye drops 1 drp ophthalmic (eye) DAILY PRN 02/09/24 01/14/25 Unknown History Dry Eye(S) acetaminophen 325 mg tablet 650 mg PO DAILY PRN Pain (Scale 04/13/24 01/14/25 Unknown History Score 1-3) blood sugar diagnostic (FreeStyle #10 ea 04/13/24 01/14/25 Unknown History Lite Strips) calcium polycarbophil 625 mg 625 mg PO DAILY 04/13/24 01/14/25 08/03/24 10:21 History tablet (Fiber (calcium polycarbophil)) sucralfate 1 gram tablet 1 g PO DAILY 04/13/24 01/14/25 08/03/24 10:21 History insulin aspart U-100 100 unit/mL See Protocol subcut .TIDPC 06/14/24 01/14/25 08/03/24 10:21 History (3 mL) subcutaneous pen (Novolog FlexPen U-100 Insulin aspart) hydrocortisone 1 % topical ointment 1 appl topical DAILY PRN itch 08/03/24 01/14/25 Unknown History multivitamin-ferrous 1 tab PO DAILY 08/03/24 01/14/25 Unknown History fumarate-folic acid 18 mg-400 mcg tablet (Centrum Women) sitagliptin phosphate 50 mg tablet 50 mg DAILY 08/03/24 01/14/25 08/03/24 History (Januvia) sodium polystyrene sulfonate 15 g PO BEDTIME PRN Hyperkalemia 08/03/24 01/14/25 Unknown History vit C 250 mg-E 90 mg-zinc 40 1 tab PO BID 08/03/24 01/14/2524 10:21 History mg-copper 1 do-brckza-opraxi chew tablet (PreserVision AREDS-2) Physical Exam Vital Signs: Last Vital Signs Temp 97.9 F 03/14/25 14:17 Pulse 73 03/14/25 14:17 Resp 16 03/14/25 14:17 BP 145/50 H 03/14/25 14:17 Pulse Ox 97 03/14/25 14:17 O2 Del Method Room Air 03/14/25 14:17 BMI result Body Mass Index 37.1 Const General: alert and awake Resp Effort & Inspection: normal respiratory effort and able to speak in complete sentences Auscultation: clear to auscultation bilaterally Cardio Rate: regular rate Rhythm: regular rhythm Heart sounds: S1 normal heart sound present and S2 normal heart sound present GI Palpation (GI): Soft to palpation and nontender Skin Trauma: abrasion (multiple abrasions on face- hematoma on forehead. ) Extrem General: No edema Results Lab Results 03/14/25 13:20 03/14/25 13:20 Lab results: Chemistry 03/14/25 13:20 Sodium 137 Potassium 7.6 H* D Carbon Dioxide 24 BUN 123 H Creatinine 7.76 H* Calcium 8.8 Hematology 03/14/25 13:20 WBC 9.5 Hgb 9.3 L Plt Count 117 L Assessment and Plan (1) ESRD on dialysis: Status: Acute Plan ESRD on HD MWF permcath in place K 7.6, will plan for HD now H&H 9.3 & 28 calcium 8.8; will check phosphorous levels patient appears euvolemic blood pressures slightly elevated, pt in pain recommend low phos, low potassium and low sodium diet recommend 1.5L fluid restriction daily electrolyte and renal function studies will continue to follow, continue supportive care Discussed with Dr Mccartney. Procedures Date of Service Date of Service: 03/14/25
--- OUTSIDE RECORDS SUMMARY | 2025-03-14 14:33 | XMS_ITS | Encounter Summary ---
Author Organization [employer] Address [address] [facility] [address] [place] [address] Care Team Providers Care Water Tanker Driver Name Role Phone Juany Rodriguez MD Primary Care Provider [phone] Reason for Visit * Reason Onset Date Comments Nurse Triage 08/20/2023 Encounter Details Date Type Department Care Team (Late st Contact Info) Description 08/20/2023 Telephone [facility] [address] [place] [address] Juany Rodriguez MD [address] [place] [address] Nurse Triage Social History Tobacco Use Types [...] at 100pm today. Declines to come to [facility] at [facility]. No aptsavailable in [place] today will obtain insted visit with [facility] insurance present. Tish agrees to this [...] caller accepted this outcome Please contact Tish [phone] documented in this encounter Plan of Treatment Not on file documented as of this encounter Visit Diagnoses Not on filedocumented in this encounter Care Teams Water Tanker Driver Relationship Specialty Start Date End Date Juany Rodriugez MD [address] [place] [id number] PCP - General Family Medicine 09/01/17 Dirk DENNISON 08/13/24 documented as of this encounter
[2025-03-14] MEDS: Sodium Bicarbonate 8.4% 50 MEQ/50 ML SYRINGE IVPUSH (14:41)
[2025-03-14] MEDS: Insulin Regular, Human 100 UNIT/ML 10 ML VIAL IVPUSH (14:41)
[2025-03-14] MEDS: Calcium Gluconate/NaCl,Iso-Osm 2 GM/100 ML PLAST..BAG IV (14:41)
[2025-03-14 14:44] LABS: Glucose, Whole Blood 275 mg/dL (60-115)
--- NOTE | 2025-03-14 14:54 | PC.NURSE ---
Patient noted to be hyperkalemic, placed on commercial lease administrator NSR. POC obtained 275 no s/sx of hyper/hypoglycemia. IV insulin 5 units pushed, will recheck POC. VSS and up to date. Granddaughter at bedside.
[2025-03-14 15:19] LABS: Glucose, Whole Blood 262 mg/dL (60-115)
--- NOTE | 2025-03-14 16:00 | PC.NURSE ---
sling applied to RUE - pt tolerated well.
--- NOTE | 2025-03-14 16:19 | PM.IMHP ---
History of Present Illness Date of Service: 03/14/25 Chief Complaint: Fall 79-year-old woman presenting to the ER after sustaining a mechanical fall on her way to dialysis. She had some complaints of right shoulder, left knee and left ankle pain. Head CT, knee and ankle x-rays negative, shoulder x-ray showing comminuted impacted fracture of the humeral neck. Patient denied chest pain, shortness breath, nausea, vomiting, diarrhea, recent illness. In the ER she received insulin, calcium gluconate, sodium bicarbonate was admitted for emergent dialysis. She will be admitted for further management of treatment of hypokalemia as well as fracture. Review of Systems Review of Systems: Denies any recent fever chills or decrease in appetite respiratory denies any shortness of breath or cough cardiovascular denied chest pain gastrointestinal denies any dysphagia abdominal pain nausea vomiting or diarrhea genitourinary denies any dysuria frequency or hematuria musculoskeletal right shoulder pain, knee and ankle pain neuropsych denies any weakness or seizures all other systems reviewed are negative [facility] Medical History Chronic kidney disease Shortness of breath Chest discomfort Exocrine pancreatic insufficiency ANKIT (obstructive sleep apnea) Asthma Pulmonary hypertension Vasovagal syncope Type 2 diabetes mellitus with unspecified complications Essential hypertension PAF (paroxysmal atrial fibrillation) Cardiomyopathy Family History Father No problems noted. Mother No problems noted. 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) Alcohol intake: never Patient Tobacco Use Status: Never used Tobacco service: No Meds Allergies Allergy/AdvReac Type Severity Reaction Status Date / Time faviola (FAVIOLA) AdvReac Intermediate NAUSEA & Verified 03/14/25 12:13 VOMITING Penicillins (PENICILLINS) AdvReac Unknown NAUSEA & Verified 03/14/25 12:13 VOMITING YUCA Allergy Unknown NAUSEA & Uncoded 03/14/25 12:13 VOMITING SARDINES AdvReac Intermediate NAUSEA & Uncoded 03/14/25 12:13 VOMITING Active Medications: Current Medications Acetaminophen (Acetaminophen 325 Mg Tablet) 650 mg PO Q6H PRN PRN Reason: Pain, Mild 1-3,fever,headache Calcium Carbonate (Calcium Carbonate 750 Mg Tab.Chew) 750 mg PO Q4H PRN PRN Reason: Heartburn Dextrose (Dextrose 50 % 25 Gm/50 Ml Syringe) 25 gm IVPUSH Q15M PRN; Protocol PRN Reason: per Hypoglycemia Standing Ord. Glucose (Glucose Gel 15 Gm Gel..Gram.) 15 gm PO Q15M PRN; Protocol PRN Reason: per Hypoglycemia Standing Ord. Insulin Human Lispro (Insulin Lispro 100 Unit/Ml 3 Ml Vial) 0 unit SUBCUT [facility]; Protocol Magnesium Hydroxide (Milk Of Magnesia 30 Ml Oral.Susp) 30 ml PO DAILY PRN PRN Reason: Constipation Melatonin (Melatonin 3 Mg Tablet) 6 mg PO BEDTIME PRN PRN Reason: Insomnia Morphine Sulfate (Morphine Sulfate 2 Mg/Ml Cartridge) 1 mg IVPUSH Q4H PRN; Protocol PRN Reason: Pain, Severe (Pain Scale 7-10) Sodium Chloride (0.9 % Sodium Chloride Flush 3 Ml Syringe) 3 ml IVFLUSH [facility] Home Medications ?Medication ?Instructions ?Recorded ?Confirmed ?Last Taken ?Type atorvastatin 40 mg tablet 40 mg PO BEDTIME 11/27/20 03/14/25 03/14/25 History docusate sodium 100 mg capsule 100 mg PO BID PRN constipation 11/27/20 03/14/25 Unknown History gabapentin 100 mg capsule 200 mg PO BEDTIME 11/27/20 03/14/25 03/14/25 History simethicone 180 mg capsule 180 mg PO TID PRN Constipation 11/27/20 03/14/25 Unknown History nebulizers 04/02/23 01/14/25 Unknown History meclizine 25 mg tablet 25 mg PO TID PRN Dizziness 12/02/23 03/14/25 03/14/25 History peg [id number] 1 1 drp ophthalmic (eye) DAILY PRN 12/02/23 03/14/25 Unknown History %-0.2 %-0.2 % eye drops Dry Eye(S) (Artificial Tears ([id number])) cholecalciferol (vitamin D3) 50 50 mcg PO DAILY 12/04/23 03/14/25 03/14/25 History mcg (2,000 unit) capsule omega-3 300 mg-dha 120 mg-epa 180 1 cap PO DAILY 12/04/23 03/14/25 03/14/25 History mg-fish oil 1,000 mg capsule sennosides 8.6 mg tablet (senna) 8.6 - 17.2 mg PO DAILY PRN 01/01/24 03/14/25 03/14/25 History Constipation cyanocobalamin (vitamin B-12) 1,000 mcg PO DAILY 02/09/24 03/14/25 03/14/25 History 1,000 mcg tablet ketorolac 0.5 % eye drops 1 drp ophthalmic (eye) DAILY PRN 02/09/24 03/14/25 03/14/25 History Dry Eye(S) acetaminophen 325 mg tablet 650 mg PO DAILY PRN Pain (Scale 04/13/24 03/14/25 03/14/25 History Score 1-3) blood sugar diagnostic (FreeStyle #10 ea 04/13/24 01/14/25 Unknown History Lite Strips) calcium polycarbophil 625 mg 625 mg PO DAILY 04/13/24 03/14/25 03/13/25 History tablet (Fiber (calcium polycarbophil)) sucralfate 1 gram tablet 1 g PO DAILY PRN Loose Stool 04/13/24 03/14/25 03/14/25 History insulin aspart U-100 100 unit/mL See Protocol subcut QIDACHS 06/14/24 03/14/25 03/14/25 History (3 mL) subcutaneous pen (Novolog FlexPen U-100 Insulin aspart) hydrocortisone 1 % topical ointment 1 appl topical DAILY PRN itch 08/03/24 03/14/25 03/14/25 History multivitamin-ferrous 1 tab PO DAILY 08/03/24 03/14/25 03/14/25 History fumarate-folic acid 18 mg-400 mcg tablet (Centrum Women) sitagliptin phosphate 50 mg tablet 50 mg DAILY 08/03/24 03/14/25 03/14/25 History (Januvia) sodium polystyrene sulfonate 15 g PO BEDTIME PRN Hyperkalemia 08/03/24 03/14/25 Unknown History vit C 250 mg-E 90 mg-zinc 40 1 tab PO BID 08/03/24 03/14/25 03/14/25 History mg-copper 1 [id number] chew tablet (PreserVision AREDS-2) erythromycin 5 mg/gram (0.5 %) eye 1 appl ophthalmic (eye) BEDTIME 03/14/25 03/14/25 03/14/25 History ointment ferrous sulfate 325 mg (65 mg 325 mg PO TID 03/14/25 03/14/25 03/14/25 History iron) tablet (FeroSul) sucroferric oxyhydroxide 500 mg 500 mg PO TID PRN Hypocalcemia 03/14/25 03/14/25 Unknown History chewable tablet (Velphoro) Physical Exam Vital Signs and Narrative: Vital Signs: Last Vital Signs Temp 97.9 F 03/14/25 14:17 Pulse 70 03/14/25 14:52 Resp 18 03/14/25 14:52 BP 136/42 L 03/14/25 14:52 Pulse Ox 96 03/14/25 14:52 O2 Del Method Room Air 03/14/25 14:52 BMI result Body Mass Index 37.1 Appearing in no acute distress head is normocephalic atraumatic eyes pupils are PERRLA sclera is anicteric mouth throat mucous membranes are intact and moist neck is supple no lymphadenopathy, no JVD noted lung sounds are clear to auscultation heart regular rate rhythm, clear S1, S2 positive bowel sounds, abdomen is soft, nontender neuro patient is alert x3, no focal deficits Results Labs 03/14/25 13:20 03/17/25 06:53 Labs: Laboratory Results - last 24 hr 03/14/25 03/14/25 03/14/25 13:20 13:23 14:40 MCV 99.0 H MCH 32.3 MCHC 32.6 RDW 15.6 Plt Count 117 L MPV 10.3 Immature Gran % (Auto) 0.5 H Neut % (Auto) 84.1 H Lymph % (Auto) 7.0 L Bollinger % (Auto) 4.3 Eos % (Auto) 3.6 Baso % (Auto) 0.5 Lymph # (Auto) 0.7 L Bollinger # (Auto) 0.4 Eos # (Auto) 0.3 Baso # (Auto) 0.1 Abs Immat Gran (auto) 0.05 H Absolute Neuts (auto) 8.0 Absolute Nucleated RBC 0.000 Nucleated RBC % (auto) 0.0 PT 11.5 INR 1.0 APTT 27.6 D Anion Gap 20 Estim Creat Clear Calc 5.6 Estimated GFR 5 POC Glucose 280 H 275 H Random Glucose 296 H Calcium 8.8 Magnesium 2.9 H Total Bilirubin 0.4 AST 13 ALT 11 Alkaline Phosphatase 65 Troponin I High Sens 8.6 Total Protein 6.9 Albumin 3.9 03/14/25 15:15 MCV MCH MCHC RDW Plt Count MPV Immature Gran % (Auto) Neut % (Auto) Lymph % (Auto) Bollinger % (Auto) Eos % (Auto) Baso % (Auto) Lymph # (Auto) Bollinger # (Auto) Eos # (Auto) Baso # (Auto) Abs Immat Gran (auto) Absolute Neuts (auto) Absolute Nucleated RBC Nucleated RBC % (auto) PT INR APTT Anion Gap Estim Creat Clear Calc Estimated GFR POC Glucose 262 H Random Glucose Calcium Magnesium Total Bilirubin AST ALT Alkaline Phosphatase Troponin I High Sens Total Protein Albumin Imaging Radiologist's Impressions: Impressions Cervical Spine CT 03/14/25 12:58 IMPRESSION: Multilevel degenerative disc disease and facet arthropathy. 5 x 8 mm solid pulmonary nodule in the left apex. Fleischner Society recommendation: CT chest without contrast in 6-12 months, then optional CT at 18-24 months. If high risk, then CT at 18-24 months is not optional but is recommended. High risk patients includes those with a history of smoking, first-degree relative with lung cancer, or exposure to uranium, radon, or asbestos. Electronically signed by: Cal Pathak MD 03/14/2025 02:40 PM EDT RP Head CT 03/14/25 12:58 IMPRESSION: No acute fracture, bony calvarium. No acute intracranial hemorrhage. Small vessel occlusive disease. Prior vascular insult right MCA territory. Soft tissue contusion, left forehead. Atherosclerosis disease. Electronically signed by: Osmel Montano MD 03/14/2025 02:31 PM EDT RP Ankle X-Ray 03/14/25 14:02 IMPRESSION: Osteopenia. No evidence of acute fracture of the left ankle. Electronically signed by: Jas Gramajo MD 03/14/2025 03:17 PM EDT RP Knee X-Ray 03/14/25 14:05 IMPRESSION: 1. No definite fracture or dislocation. 2. Tricompartmental osteoarthritis, moderate to severe in the medial compartment. 3. Moderate to large suprapatellar joint effusion. Electronically signed by: Kevon Apple MD 03/14/2025 03:28 PM EDT RP Shoulder X-Ray 03/14/25 14:10 IMPRESSION: Comminuted impacted fracture of the humeral neck. Electronically signed by: Jas Gramajo MD 03/14/2025 03:15 PM EDT RP Assessment and Plan (1) ESRD on dialysis: Status: Inactive Plan 79-year-old woman admitted after a fall found to have humeral fracture and hyperkalemia End-stage renal disease on dialysis Emergent dialysis for hyperkalemia Nephrology consultation Severe hyperkalemia Given insulin, calcium gluconate, sodium bicarbonate in the ER Emergent dialysis ordered Fall with comminuted impacted fracture of the humeral neck Sling in place Orthopedic surgery consultation Pain management Hypertension Continue home medications Monitor blood pressure closely Asthma Continue albuterol inhalers as needed Normocytic anemia No obvious bleeding Monitor closely DVT prophylaxis with pneumatic compression boots Full code Quality Stroke Does the patient have a stroke diagnosis?: No VTE Prior VTE?: No VTE Risk Level:: Medical - moderate - high VTE Device Contraindication: N/A - Device Ordered VTE Drug Contraindication: N/A - Med Ordered
--- NOTE | 2025-03-14 16:48 | PM.CNOR ---
History of Present Illness HPI Consult date: 03/14/25 Chief complaint: hyperkalemia Narrative: 79-year-old female admitted to hospital after a fall Patient fell on her way to dialysis this morning X-rays taken in the ED reveal nondisplaced, comminuted, impacted femoral neck fracture Patient complains of significant pain in the right shoulder Denies numbness or tingling in the right upper extremity Of note, patient is being admitted to the hospital for acute hyperkalemia and for dialysis Review of Systems Review of Systems: Yes all other systems are reviewed and are negative PMFSH Past Medical History Medical History Chronic kidney disease Shortness of breath Chest discomfort Exocrine pancreatic insufficiency ANKIT (obstructive sleep apnea) Asthma Pulmonary hypertension Vasovagal syncope Type 2 diabetes mellitus with unspecified complications Essential hypertension PAF (paroxysmal atrial fibrillation) Cardiomyopathy Family History Family History Father No problems noted. Mother No problems noted. 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) Alcohol intake: never Patient Tobacco Use Status: Never used Tobacco Smoked in Last 30 Days: No Use of substances other than those prescribed or required for medical reasons: No Advance Directives: No Advance Directives Information Provided: Yes Do you have a plan to hurt others: No Plan service: No Meds Allergies Allergy/AdvReac Type Severity Reaction Status Date / Time faviola (FAVIOLA) AdvReac Intermediate NAUSEA & Verified 03/14/25 12:13 VOMITING Penicillins (PENICILLINS) AdvReac Unknown NAUSEA & Verified 03/14/25 12:13 VOMITING YUCA Allergy Unknown NAUSEA & Uncoded 03/14/25 12:13 VOMITING SARDINES AdvReac Intermediate NAUSEA & Uncoded 03/14/25 12:13 VOMITING Active Medications: Current Medications Acetaminophen (Acetaminophen 325 Mg Tablet) 650 mg PO Q6H PRN PRN Reason: Pain, Mild 1-3,fever,headache Calcium Carbonate (Calcium Carbonate 750 Mg Tab.Chew) 750 mg PO Q4H PRN PRN Reason: Heartburn Dextrose (Dextrose 50 % 25 Gm/50 Ml Syringe) 25 gm IVPUSH Q15M PRN; Protocol PRN Reason: per Hypoglycemia Standing Ord. Glucose (Glucose Gel 15 Gm Gel..Gram.) 15 gm PO Q15M PRN; Protocol PRN Reason: per Hypoglycemia Standing Ord. Insulin Human Lispro (Insulin Lispro 100 Unit/Ml 3 Ml Vial) 0 unit [facility]UT [facility]; Protocol Magnesium Hydroxide (Milk Of Magnesia 30 Ml Oral.Susp) 30 ml PO DAILY PRN PRN Reason: Constipation Melatonin (Melatonin 3 Mg Tablet) 6 mg PO BEDTIME PRN PRN Reason: Insomnia Morphine Sulfate (Morphine Sulfate 2 Mg/Ml Cartridge) 1 mg IVPUSH Q4H PRN; Protocol PRN Reason: Pain, Severe (Pain Scale 7-10) Sodium Chloride (0.9 % Sodium Chloride Flush 3 Ml Syringe) 3 ml IVFSH [facility] [place] Home Medications ?Medication ?Instructions ?Recorded ?Confirmed ?Last Taken ?Type atorvastatin 40 mg tablet 40 mg PO BEDTIME 11/27/20 01/14/25 08/02/24 History docusate sodium 100 mg capsule 100 mg PO BID PRN constipation 11/27/20 01/14/25 Unknown History gabapentin 100 mg capsule 200 mg PO BEDTIME 11/27/20 01/14/25 08/03/24 10:21 History simethicone 180 mg capsule 180 mg PO TID PRN Constipation 11/27/20 01/14/25 Unknown History nebulizers 04/02/23 01/14/25 Unknown History ammonium lactate 12 % topical cream 1 appl topical DAILY 12/02/23 01/14/25 08/03/24 10:21 History meclizine 25 mg tablet 25 mg PO DAILY PRN Dizziness 12/02/23 01/14/25 Unknown History peg [id number] 1 1 drp ophthalmic (eye) DAILY PRN 12/02/23 01/14/25 Unknown History %-0.2 %-0.2 % eye drops Dry Eye(S) (Artificial Tears ([id number])) cholecalciferol (vitamin D3) 50 50 mcg PO DAILY 12/04/23 01/14/25 08/03/24 10:21 History mcg (2,000 unit) capsule omega-3 300 mg-dha 120 mg-epa 180 1 cap PO DAILY 12/04/23 01/14/25 08/03/24 10:21 History mg-fish oil 1,000 mg capsule famotidine 20 mg tablet 20 mg PO DAILY 01/01/24 01/14/25 08/03/24 10:21 History sennosides 8.6 mg tablet (senna) 17.2 mg PO DAILY 01/01/24 01/14/25 08/03/24 10:21 History cyanocobalamin (vitamin B-12) 1,000 mcg PO DAILY 02/09/24 01/14/25 08/03/24 10:21 History 1,000 mcg tablet ketorolac 0.5 % eye drops 1 drp ophthalmic (eye) DAILY PRN 02/09/24 01/14/25 Unknown History Dry Eye(S) acetaminophen 325 mg tablet 650 mg PO DAILY PRN Pain (Scale 04/13/24 01/14/25 Unknown History Score 1-3) blood sugar diagnostic (Maryyle #10 ea 04/13/24 01/14/25 Unknown History Lite Strips) calcium polycarbophil 625 mg 625 mg PO DAILY 04/13/24 01/14/25 08/03/24 10:21 History tablet (Fiber (calcium polycarbophil)) sucralfate 1 gram tablet 1 g PO DAILY 04/13/24 01/14/25 08/03/24 10:21 History insulin aspart U-100 100 unit/mL See Protocol subcut .TIDPC 06/14/24 01/14/25 08/03/24 10:21 History (3 mL) subcutaneous pen (Novolog FlexPen U-100 Insulin aspart) hydrocortisone 1 % topical ointment 1 appl topical DAILY PRN itch 08/03/24 01/14/25 Unknown History multivitamin-ferrous 1 tab PO DAILY 08/03/24 01/14/25 Unknown History fumarate-folic acid 18 mg-400 mcg tablet (Centrum Women) sitagliptin phosphate 50 mg tablet 50 mg DAILY 08/03/24 01/14/25 08/03/24 History (Januvia) sodium polystyrene sulfonate 15 g PO BEDTIME PRN Hyperkalemia 08/03/24 01/14/25 Unknown History vit C 250 mg-E 90 mg-zinc 40 1 tab PO BID 08/03/24 01/14/25 08/03/24 10:21 History mg-copper 1 se-landou-oesyqw chew tablet (PreserVision AREDS-2) ferrous sulfate 325 mg (65 mg 325 mg PO TID 03/14/25 Unknown History iron) tablet (FeroSul) Physical Exam Vital Signs: Vital Signs: Last Vital Signs Temp 97.9 F 03/14/25 14:17 Pulse 70 03/14/25 14:52 Resp 18 03/14/25 14:52 BP 136/42 L 03/14/25 14:52 Pulse Ox 96 03/14/25 14:52 O2 Del Method Room Air 03/14/25 14:52 BMI result Body Mass Index 37.1 Extrem: Other: Patient's right shoulder normal to inspection Sling in place No erythema, ecchymosis, edema noted No lacerations, abrasions, open areas No evidence of infection Patient reports significant tenderness to very gentle palpation of the right shoulder Distal sensation intact Capillary refill brisk Results Labs 03/14/25 13:20 03/14/25 13:20 Labs: Abnormal lab results 03/14/25 03/14/25 03/14/25 Range/Units 13:20 13:23 14:40 RBC 2.88 L D (4.20-5.50) X10*6/uL Hgb 9.3 L (12.0-16.0) g/dl Hct 28.5 L D (37.0-47.0) % MCV 99.0 H (80.0-98.0) fL Plt Count 117 L (160-400) X10*3/uL Immature Gran % (Auto) 0.5 H (0.0-0.4) % Neut % (Auto) 84.1 H (45-73) % Lymph % (Auto) 7.0 L (20-40) % Lymph # (Auto) 0.7 L (1.2-4.9) X10*3/uL Abs Immat Gran (auto) 0.05 H (0.00-0.03) X10*3/uL Potassium 7.6 H* D (3.3-5.1) mmol/L BUN 123 H (9-16) mg/dL Creatinine 7.76 H* (0.5-1.4) mg/dL POC Glucose 280 H 275 H (60-115) mg/dL Random Glucose 296 H (60-115) mg/dL Magnesium 2.9 H (1.6-2.6) mg/dL 03/14/25 Range/Units 15:15 RBC (4.20-5.50) X10*6/uL Hgb (12.0-16.0) g/dl Hct (37.0-47.0) % MCV (80.0-98.0) fL Plt Count (160-400) X10*3/uL Immature Gran % (Auto) (0.0-0.4) % Neut % (Auto) (45-73) % Lymph % (Auto) (20-40) % Lymph # (Auto) (1.2-4.9) X10*3/uL Abs Immat Gran (auto) (0.00-0.03) X10*3/uL Potassium (3.3-5.1) mmol/L BUN (9-16) mg/dL Creatinine (0.5-1.4) mg/dL POC Glucose 262 H (60-115) mg/dL Random Glucose (60-115) mg/dL Magnesium (1.6-2.6) mg/dL H & H 03/14/25 Range/Units 13:20 Hgb 9.3 L (12.0-16.0) g/dl Hct 28.5 L D (37.0-47.0) % Coagulation 03/14/25 Range/Units 13:20 INR 1.0 (0.9-1.1) All other labs normal. Diagnostic results Shoulder x-ray: report reviewed and image reviewed Assessment and Plan (1) Fracture of femoral neck, right, closed: Status: Acute Plan 1. Nondisplaced, comminuted right femoral neck fracture Date of injury 03/14/2025 Sling for comfort No active range of motion of the right shoulder away from the body No acute surgical intervention indicated Follow-up outpatient upon discharge for further treatment Re-consult for any acute concerns Procedures Date of Service Date of Service: 03/14/25
--- NOTE | 2025-03-14 16:51 | PC.NURSE ---
Patient moved ED11 and changed over. Patient noted to be incontinent of bowel. Patient cleaned up.
--- NOTE | 2025-03-14 18:13 | PC.NURSE ---
Patient at dialysis at this time, unable to check POC. Will check on patients return
--- NOTE | 2025-03-14 18:37 | PHA.MEDREC ---
Addendum entered by Adria Alexandre [facility] 03/14/25 18:51: MED REC CHECKED BY [facility] Original Note: Pharmacy Consult ? Medication Reconciliation Pharmacy has completed the medication reconciliation. Spoke with pt family at bedside who had a list on hand from the pt that was a bit outdated but family was able to confirm anything that did not match. Family confirmed the pt takes her Novolog per a sliding scale as needed QIDPCHS.
--- NOTE | 2025-03-14 18:45 | PC.NURSE ---
pt already up in HD upon arrival of this RN this shift
[2025-03-14 19:01] LABS: Glucose, Whole Blood 171 mg/dL (60-115)
--- NOTE | 2025-03-14 19:36 | PC.NURSE ---
ED charge Brit asked if pt can go to 444 after HD. 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 both nurses called and made aware, stated confirmation. plan for patient to go right to inpt room from HD
[2025-03-14] MEDS: Morphine Sulfate 2 MG/ML CARTRIDGE 1 MG IVPUSH (21:18)
[2025-03-14 21:23] LABS: Glucose, Whole Blood 139 mg/dL (60-115)
[2025-03-15] VITALS (10 sets, daily range): BP systolic 86–110; BP diastolic 43–54; PULSE 60–84; RESP 16–20; TEMP 36.3–37.3; O2SAT 94–97
[2025-03-15] MEDS: Morphine Sulfate 2 MG/ML CARTRIDGE 1 MG IVPUSH ×2 (01:34→10:55)
[2025-03-15] MEDS: Gabapentin 100 MG CAPSULE 200 MG PO ×2 (01:41→21:55)
[2025-03-15] MEDS: 0.9 % Sodium Chloride Flush 3 ML SYRINGE IVFLUSH ×2 (01:41→08:52)
[2025-03-15 07:22] LABS: Glucose, Whole Blood 178 mg/dL (60-115)
[2025-03-15] MEDS: Lipase/Prot/Amylase 12/38/60K CAPSULE.DR 3 CAP PO ×3 (08:51→17:10)
[2025-03-15] MEDS: calcium polycarbophiL TABLET 1 TAB PO (08:52)
[2025-03-15] MEDS: Cholecalciferol (Vitamin D3) 25 MCG TABLET 50 MCG PO (08:52)
[2025-03-15] MEDS: 0.9 % Sodium Chloride 1,000 ML 50 ML IVCONT (08:52)
[2025-03-15] MEDS: Ferrous Sulfate 324 MG TABLET.DR PO ×3 (08:52→21:55)
[2025-03-15] MEDS: Apixaban 2.5 MG TABLET PO ×2 (08:52→21:55)
[2025-03-15] MEDS: Omeprazole 20 MG CAPSULE.DR PO (08:52)
[2025-03-15] MEDS: Insulin Lispro 100 UNIT/ML 3 ML VIAL SUBCUT ×3 (08:52→21:55)
[2025-03-15] MEDS: Cyanocobalamin (Vitamin B-12) 1,000 MCG TABLET 1000 MCG PO (08:52)
--- NOTE | 2025-03-15 09:06 | MHC.CM.PN ---
CM attempted to speak with Daughter/HCP/Iris @ [phone] but per Iris' request, CM spoke with Granddaughter/Tish @ [phone] and addressed IMM with her (original will be mailed to Tish @ [facility] in [place], [address], and a copy has been placed on the chart). Patient lives in a Townhouse with Iris and mostly uses a w/c for mobility. 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 Home (DOES NOT WANT SNF)resume services and add new VNA is the tentative goal and CM has initiated and will follow for dc planning.PCP is Dr. Juany Rodriguez and Daughter will transport to home at dc.
--- NOTE | 2025-03-15 09:49 | P.PNNP_ITS ---
Subjective Subjective Date of Service: 03/15/25 Interval history: Patient here s/p fall with head strike, following for management of ESRD on HD MWF while in hospital. HD yesterday, removed ~1L. patient reports she is in pain today- forehead, right shoulder, left ankle- all areas she injured from fall. Denies chest pain, abdominal pain, back/flank pain, urinary symptoms. States she is very tired. blood pressure low this a.m., 86/53. Home blood pressure medications have been held (amlodipine, lasix, lisinopril). Per HD RN, toelrated HD well yesterday, had one drop in BP mid treatment into 80s, otherwise no issues. Physical Exam 2 Vital Signs: Vital Signs: Last Vital Signs Temp 98.5 F 03/15/25 07:05 Pulse 81 03/15/25 07:05 Resp 18 03/15/25 07:05 BP 86/53 L 03/15/25 07:43 Pulse Ox 94 03/15/25 07:05 O2 Del Method Room Air 03/15/25 07:05 BMI result Body Mass Index 36.6 Const: General: awake and lethargic Orientation/consciousness: lethargic Resp: Effort & Inspection: normal respiratory effort Auscultation: clear to auscultation bilaterally Cardio: Rate: regular rate Rhythm: regular rhythm Heart sounds: S1 normal heart sound present and S2 normal heart sound present GI: Palpation (GI): Soft to palpation and nontender Skin: Trauma: abrasion (multiple abrasions on face- hematoma on forehead. ) Extrem: General: No edema Objective Data Labs 03/14/25 13:20 03/15/25 08:48 Labs: Laboratory Results - last 24 hr 03/14/25 03/14/25 03/14/25 13:20 13:23 14:40 WBC 9.5 RBC 2.88 L D Hgb 9.3 L Hct 28.5 L D MCV 99.0 H MCH 32.3 MCHC 32.6 RDW 15.6 Plt Count 117 L MPV 10.3 Immature Gran % (Auto) 0.5 H Neut % (Auto) 84.1 H Lymph % (Auto) 7.0 L Garrett % (Auto) 4.3 Eos % (Auto) 3.6 Baso % (Auto) 0.5 Lymph # (Auto) 0.7 L Garrett # (Auto) 0.4 Eos # (Auto) 0.3 Baso # (Auto) 0.1 Abs Immat Gran (auto) 0.05 H Absolute Neuts (auto) 8.0 Absolute Nucleated RBC 0.000 Nucleated RBC % (auto) 0.0 Hold Purple Top PT 11.5 INR 1.0 APTT 27.6 D Sodium 137 Potassium 7.6 H* D Chloride 101 Carbon Dioxide 24 Anion Gap 20 BUN 123 H Creatinine 7.76 H* Estim Creat Clear Calc 5.6 Estimated GFR 5 POC Glucose 280 H 275 H Random Glucose 296 H Calcium 8.8 Magnesium 2.9 H Total Bilirubin 0.4 AST 13 ALT 11 Alkaline Phosphatase 65 Troponin I High Sens 8.6 Total Protein 6.9 Albumin 3.9 Hold Yellow Top 03/14/25 03/14/25 03/14/25 15:15 18:56 21:04 WBC RBC Hgb Hct MCV MCH MCHC RDW Plt Count MPV Immature Gran % (Auto) Neut % (Auto) Lymph % (Auto) Garrett % (Auto) Eos % (Auto) Baso % (Auto) Lymph # (Auto) Garrett # (Auto) Eos # (Auto) Baso # (Auto) Abs Immat Gran (auto) Absolute Neuts (auto) Absolute Nucleated RBC Nucleated RBC % (auto) Hold Purple Top PT INR APTT Sodium Potassium Chloride Carbon Dioxide Anion Gap BUN Creatinine Estim Creat Clear Calc Estimated GFR POC Glucose 262 H 171 H 139 H Random Glucose Calcium Magnesium Total Bilirubin AST ALT Alkaline Phosphatase Troponin I High Sens Total Protein Albumin Hold Yellow Top 03/15/25 03/15/25 07:08 07:55 WBC RBC Hgb Hct MCV MCH MCHC RDW Plt Count MPV Immature Gran % (Auto) Neut % (Auto) Lymph % (Auto) Garrett % (Auto) Eos % (Auto) Baso % (Auto) Lymph # (Auto) Garrett # (Auto) Eos # (Auto) Baso # (Auto) Abs Immat Gran (auto) Absolute Neuts (auto) Absolute Nucleated RBC Nucleated RBC % (auto) Hold Purple Top SEE NOTE PT INR APTT Sodium Potassium Chloride Carbon Dioxide Anion Gap BUN Creatinine Estim Creat Clear Calc Estimated GFR POC Glucose 178 H Random Glucose Calcium Magnesium Total Bilirubin AST ALT Alkaline Phosphatase Troponin I High Sens Total Protein Albumin Hold Yellow Top See Note Procedures Date of Service Date of Service: 03/15/25 Assessment & Plan Assessment and plan (1) ESRD on dialysis: Status: Acute Plan ESRD on HD MWF permcath in place HD yesterday- electrolytes within normal limits H&H 9.3 & 28 calcium 8.7; phosphorous 5.1, will continue to monitor (velphoro as outpatient, consider starting sevelamer as inpatient if phosphorous increases). patient appears euvolemic blood pressures low today - 5mg midodrine recommend low phos, low potassium and low sodium diet recommend 1.5L fluid restriction daily electrolyte and renal function studies will continue to follow, continue supportive care Discussed with Dr Mccartney. Time Spent With Patient Time: Total time managing care of this patient today ____ minutes.
[2025-03-15 09:51] LABS: Anion Gap 17 (12-20); Blood Urea Nitrogen 50 mg/dL (9-16); Calcium 8.7 mg/dL (8.4-10.2); Carbon Dioxide 29 mmol/L (22-29); Chloride 98 mmol/L (96-108); Creatinine Clr Calc Pharmacy 9.8; Estimated Glomerular Filt Rate 10; Glucose Random 190 mg/dL (60-115); Phosphorus 5.1 mg/dL (2.7-4.5); Sodium 139 mmol/L (135-145)
[2025-03-15] MEDS: Fluticasone/Umeclidinium/Vilanterol 200/62.5/25 BLST.W.DEV 1 PUFF INHALE (09:54)
[2025-03-15] MEDS: Midodrine HCl 5 MG TABLET PO (10:55)
[2025-03-15 11:44] LABS: Glucose, Whole Blood 215 mg/dL (60-115)
--- NOTE | 2025-03-15 13:17 | HO.PM.IMPN ---
Subjective Subjective Date of Service: 03/15/25 Review of Systems Follow up fall, hyperkalemia, end-stage renal disease Patient complaining of pain diffusely Right arm in a sling Physical Exam Vital Signs: Vital Signs: Last Vital Signs Temp 97.9 F 03/15/25 11:01 Pulse 18 L 03/15/25 11:01 Resp 18 03/15/25 11:01 BP 86/53 L 03/15/25 07:43 Pulse Ox 95 03/15/25 11:01 O2 Del Method Room Air 03/15/25 11:01 BMI result Body Mass Index 36.6 Appearing in no acute distress lung sounds are clear to auscultation heart regular rate rhythm, clear S1, S2 positive bowel sounds, abdomen is soft, nontender neuro patient is alert x3, no focal deficits Objective Data Active Medications Acetaminophen (Acetaminophen 325 Mg Tablet) 650 mg PO Q6H PRN PRN Reason: Pain, Mild 1-3,fever,headache Albuterol Sulfate (Albuterol Sulfate (0.083%) 2.5 Mg/3 Ml Vial.Neb) 2.5 mg INHALE Q4H PRN PRN Reason: for wheezing Albuterol Sulfate (Albuterol Sulfate 90 Mcg 8 Gm Inhaler) 2 puff INHALE Q4H PRN PRN Reason: Wheezing/SOB Lipase/Protease/Amylase (Lipase/Prot/Amylase /60k Capsule.) 3 cap PO TIDAC [facility] Last Admin: 03/15/25 11:54 Dose: 3 cap Documented By: JAKUB Apixaban (Apixaban 2.5 Mg Tablet) 2.5 mg PO BID [facility] Last Admin: 03/15/25 08:52 Dose: 2.5 mg Documented By: JAKUB Atorvastatin Calcium (Atorvastatin Calcium 40 Mg Tablet) 40 mg PO BEDTIME [facility] Calcium Carbonate (Calcium Carbonate 750 Mg Tab.Chew) 750 mg PO Q4H PRN PRN Reason: Heartburn Calcium Polycarbophil (Calcium Polycarbophil Tablet) 1 tab PO DAILY [facility] Last Admin: 03/15/25 08:52 Dose: 1 tab Documented By: JAKUB Cyanocobalamin (Cyanocobalamin (Vitamin B-12) 1,000 Mcg Tablet) 1,000 mcg PO DAILY [facility] Last Admin: 03/15/25 08:52 Dose: 1,000 mcg Documented By: JAKUB Dextrose (Dextrose 50 % 25 Gm/50 Ml Syringe) 25 gm IVPUSH Q15M PRN; Protocol PRN Reason: per Hypoglycemia Standing Ord. Docusate Sodium (Docusate Sodium 100 Mg Capsule) 100 mg PO BID PRN PRN Reason: Constipation Ferrous Sulfate (Ferrous Sulfate 324 Mg Tablet.) 324 mg PO TID [facility] Last Admin: 03/15/25 08:52 Dose: 324 mg Documented By: JAKUB Fluticasone/Umeclidinium/Vilanterol (Fluticasone/Umeclidinium/Vilanterol 200/62.5/25 Blst.W.Dev) 1 puff INHALE DAILY [facility] Last Admin: 03/15/25 09:54 Dose: 1 puff Documented By: JAKUB Gabapentin (Gabapentin 100 Mg Capsule) 200 mg PO BEDTIME [facility] Glucose (Glucose Gel 15 Gm Gel..Gram.) 15 gm PO Q15M PRN; Protocol PRN Reason: per Hypoglycemia Standing Ord. Sodium Chloride (Ns) 1,000 mls @ 50 mls/hr IVCONT .Q20H [facility] Last Admin: 03/15/25 08:52 Dose: 50 mls/hr Documented By: JAKUB Insulin Human Lispro (Insulin Lispro 100 Unit/Ml 3 Ml Vial) 0 unit SUBCUT QIDACHS [facility]; Protocol Last Admin: 03/15/25 11:54 Dose: 4 unit Documented By: JAKUB Ketorolac Tromethamine (Ketorolac Tromethamine 0.5% Op 5 Ml Drops) 1 drop EYE-BOTH DAILY PRN PRN Reason: Dry Eye(S) Magnesium Hydroxide (Milk Of Magnesia 30 Ml Oral.Susp) 30 ml PO DAILY PRN PRN Reason: Constipation Meclizine HCl (Meclizine Hcl 25 Mg Tablet) 25 mg PO TID PRN PRN Reason: Dizziness Melatonin (Melatonin 3 Mg Tablet) 6 mg PO BEDTIME PRN PRN Reason: Insomnia Morphine Sulfate (Morphine Sulfate 2 Mg/Ml Cartridge) 1 mg IVPUSH Q4H PRN; Protocol PRN Reason: Pain, Severe (Pain Scale 7-10) Last Admin: 03/15/25 10:55 Dose: 1 mg Documented By: JAKUB Omeprazole (Omeprazole 20 Mg Capsule.) 20 mg PO DAILY [facility] Last Admin: 03/15/25 08:52 Dose: 20 mg Documented By: JAKUB Sodium Chloride (0.9 % Sodium Chloride Flush 3 Ml Syringe) 3 ml IVFLUSH QSHIFT [facility] Last Admin: 03/15/25 08:52 Dose: 3 ml Documented By: JAKUB Sucralfate (Sucralfate 1 Gm Tablet) 1 gm PO DAILY PRN PRN Reason: Loose Stool Vitamin D (Cholecalciferol (Vitamin D3) 25 Mcg Tablet) 50 mcg PO DAILY [facility] Last Admin: 03/15/25 08:52 Dose: 50 mcg Documented By: JAKUB Labs 03/14/25 13:20 03/15/25 08:48 Labs: Laboratory Results - last 24 hr 03/14/25 03/14/25 03/14/25 13:20 13:23 14:40 MCV 99.0 H MCH 32.3 MCHC 32.6 RDW 15.6 Plt Count 117 L MPV 10.3 Immature Gran % (Auto) 0.5 H Neut % (Auto) 84.1 H Lymph % (Auto) 7.0 L Gulf % (Auto) 4.3 Eos % (Auto) 3.6 Baso % (Auto) 0.5 Lymph # (Auto) 0.7 L [place] # (Auto) 0.4 Eos # (Auto) 0.3 Baso # (Auto) 0.1 Abs Immat Gran (auto) 0.05 H Absolute Neuts (auto) 8.0 Absolute Nucleated RBC 0.000 Nucleated RBC % (auto) 0.0 Hold Purple Top PT 11.5 INR 1.0 APTT 27.6 D Anion Gap 20 Estim Creat Clear Calc 5.6 Estimated GFR 5 POC Glucose 280 H 275 H Random Glucose 296 H Calcium 8.8 Phosphorus Magnesium 2.9 H Total Bilirubin 0.4 AST 13 ALT 11 Alkaline Phosphatase 65 Troponin I High Sens 8.6 Total Protein 6.9 Albumin 3.9 Hold Yellow Top 03/14/25 03/14/25 03/14/25 15:15 18:56 21:04 MCV MCH MCHC RDW Plt Count MPV Immature Gran % (Auto) Neut % (Auto) Lymph % (Auto) Gulf % (Auto) Eos % (Auto) Baso % (Auto) Lymph # (Auto) Gulf # (Auto) Eos # (Auto) Baso # (Auto) Abs Immat Gran (auto) Absolute Neuts (auto) Absolute Nucleated RBC Nucleated RBC % (auto) Hold Purple Top PT INR APTT Anion Gap Estim Creat Clear Calc Estimated GFR POC Glucose 262 H 171 H 139 H Random Glucose Calcium Phosphorus Magnesium Total Bilirubin AST ALT Alkaline Phosphatase Troponin I High Sens Total Protein Albumin Hold Yellow Top 03/15/25 03/15/25 03/15/25 07:08 07:55 08:48 MCV MCH MCHC RDW Plt Count MPV Immature Gran % (Auto) Neut % (Auto) Lymph % (Auto) Gulf % (Auto) Eos % (Auto) Baso % (Auto) Lymph # (Auto) Gulf # (Auto) Eos # (Auto) Baso # (Auto) Abs Immat Gran (auto) Absolute Neuts (auto) Absolute Nucleated RBC Nucleated RBC % (auto) Hold Purple Top SEE NOTE PT INR APTT Anion Gap 17 Estim Creat Clear Calc 9.8 Estimated GFR 10 POC Glucose 178 H Random Glucose 190 H Calcium 8.7 Phosphorus 5.1 H Magnesium Total Bilirubin AST ALT Alkaline Phosphatase Troponin I High Sens Total Protein Albumin Hold Yellow Top See Note 03/15/25 11:40 MCV MCH MCHC RDW Plt Count MPV Immature Gran % (Auto) Neut % (Auto) Lymph % (Auto) Gulf % (Auto) Eos % (Auto) Baso % (Auto) Lymph # (Auto) Gulf # (Auto) Eos # (Auto) Baso # (Auto) Abs Immat Gran (auto) Absolute Neuts (auto) Absolute Nucleated RBC Nucleated RBC % (auto) Hold Purple Top PT INR APTT Anion Gap Estim Creat Clear Calc Estimated GFR POC Glucose 215 H Random Glucose Calcium Phosphorus Magnesium Total Bilirubin AST ALT Alkaline Phosphatase Troponin I High Sens Total Protein Albumin Hold Yellow Top Assessment and Plan (1) Renal failure: Status: Acute Plan 79-year-old woman admitted after a fall found to have humeral fracture and hyperkalemia End-stage renal disease on dialysis Emergent dialysis for hyperkalemia 03/14/25 Nephrology consultation>low BP midodrine 5 mg x1 1.5 L fl rest Severe hyperkalemia. Resolved Given insulin, calcium gluconate, sodium bicarbonate in the ER Emergent dialysis ordered on day of admission Fall with comminuted impacted fracture of the humeral neck Sling in place Orthopedic surgery consultation> nondisplaced, sling for comfort but does not have to stay on at all times, keep on with any physical activity, if sling is removed allow the arm to hang down with no active range of motion of the shoulder away from the body., no acute surgical intervention, follow up outpatient Pain management Hypertension Continue home medications Monitor blood pressure closely Asthma Continue albuterol inhalers as needed Normocytic anemia No obvious bleeding Monitor closely DVT prophylaxis with pneumatic compression boots Full code Disposition. Physical therapy and Occupational therapy consultation Quality Stroke Does the patient have a stroke diagnosis?: No VTE Prior VTE?: No VTE Risk Level:: Medical - moderate - high VTE Device Contraindication: N/A - Device Ordered VTE Drug Contraindication: N/A - Med Ordered
[2025-03-15 14:15] LABS: Glucose, Whole Blood 171 mg/dL (60-115)
--- NOTE | 2025-03-15 14:30 | P.CDIM_ITS ---
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 Please review below and update the documentation accordingly. Clinical Indicators: Nephrology note dated 03/14/25 - 79 y/o female with history of ESRD on HD MWF, HTN, DMII, Congestive heart failure. General: No edema History of Echo performed. Home medication: Furosemide 40 mg PO daily. Please provide further specificity regarding the most likely type and acuity of CHF you are evaluating, treating, or monitoring. Systolic Please specify if Acute, Chronic, or Acute on chronic, or Unable to determine Diastolic Please specify if Acute, Chronic, or Acute on chronic, or Unable to determine Combined Systolic/Diastolic Please specify if Acute, Chronic, or Acute on chronic, or Unable to determine Other (explain) Clinically unable to determine (explain) Thank you, Gisel Mary, CCS, CDIS Use of terms such as suspected, likely, concern for, or probable (associated with a specific diagnosis that is being evaluated, monitored, or treated as if it exists) are acceptable and can be coded in the inpatient setting, when documented at the time of discharge. Please use your independent medical judgment in providing your response. THIS QUERY IS PART OF THE PERMANENT MEDICAL RECORD
[2025-03-15 15:40] LABS: Glucose, Whole Blood 144 mg/dL (60-115)
[2025-03-15 20:52] LABS: Glucose, Whole Blood 161 mg/dL (60-115)
[2025-03-15] MEDS: Atorvastatin Calcium 40 MG TABLET PO (21:54)
[2025-03-15] MEDS: Acetaminophen 325 MG TABLET 650 MG PO (22:12)
[2025-03-16] VITALS (9 sets, daily range): BP systolic 102–170; BP diastolic 55–83; PULSE 69–146; RESP 18–20; TEMP 36.9–37.5; O2SAT 94–97
[2025-03-16] MEDS: 0.9 % Sodium Chloride 1,000 ML 50 ML IVCONT ×2 (04:10→20:45)
[2025-03-16] MEDS: Meclizine HCl 25 MG TABLET PO (06:16)
[2025-03-16 07:07] LABS: Glucose, Whole Blood 117 mg/dL (60-115)
--- NOTE | 2025-03-16 09:14 | ECG_ITS ---
Test Reason : rhythm change Blood Pressure : */* mmHG Vent. Rate : 146 BPM Atrial Rate : * BPM P-R Int : * ms QRS Dur : 84 ms QT Int : 318 ms P-R-T Axes : * 71 216 degrees QTcB Int : 495 ms Atrial fibrillation with rapid ventricular response Marked ST abnormality, possible inferior subendocardial injury Abnormal ECG When compared with ECG of 14-Mar-2025 12:35, Atrial fibrillation has replaced Sinus rhythm Vent. rate has increased by [address] now depressed in Inferior leads ST now depressed in Anterolateral leads T wave inversion now evident in Inferior leads T wave inversion now evident in Lateral leads Referred By: Georgia Chavez Electronically Signed By: CORRY DEL RIO
[2025-03-16] MEDS: Metoprolol Tartrate 5 MG/5 ML VIAL IVPUSH (09:26)
[2025-03-16] MEDS: 0.9 % Sodium Chloride Flush 3 ML SYRINGE IVFLUSH ×2 (09:29→20:44)
[2025-03-16] MEDS: Milk of Magnesia 30 ML ORAL.SUSP PO (10:30)
[2025-03-16] MEDS: calcium polycarbophiL TABLET 1 TAB PO (10:31)
[2025-03-16] MEDS: Ferrous Sulfate 324 MG TABLET.DR PO (10:31)
[2025-03-16] MEDS: Cyanocobalamin (Vitamin B-12) 1,000 MCG TABLET 1000 MCG PO (10:31)
[2025-03-16] MEDS: Omeprazole 20 MG CAPSULE.DR PO (10:31)
[2025-03-16] MEDS: Lipase/Prot/Amylase 12/38/60K CAPSULE.DR 3 CAP PO ×2 (10:31→16:40)
[2025-03-16] MEDS: Apixaban 2.5 MG TABLET PO ×2 (10:31→20:39)
[2025-03-16] MEDS: Cholecalciferol (Vitamin D3) 25 MCG TABLET 50 MCG PO (10:35)
--- NOTE | 2025-03-16 10:35 | MHC.CM.PN ---
Per ROUNDS discussion, Patient is not yet medically cleared for dc (AFib with RVR); PT is recommending home with 24/7 care and CM will continue to follow.
[2025-03-16] MEDS: Metoprolol Tartrate 25 MG TABLET PO ×4 (10:56→20:38)
[2025-03-16] MEDS: Midodrine HCl 5 MG TABLET PO (10:57)
[2025-03-16 11:36] LABS: Glucose, Whole Blood 176 mg/dL (60-115)
--- NOTE | 2025-03-16 11:36 | W.PM.DNNEP ---
Subjective Subjective Date of Service: 03/16/25 This patient was seen during dialysis. Interval history: Patient here s/p fall with head strike, following for management of ESRD on HD MWF while in hospital. patient reports she is in pain today- forehead, right shoulder, left ankle- all areas she injured from fall. Denies chest pain, abdominal pain, back/flank pain, urinary symptoms. States otherwise doing ok. blood pressure is improved today. Midodrine 5mg mid HD treatment as she receives outpatient. Physical Exam Vital Signs: Vital Signs: Last Vital Signs Temp 99.5 F 03/16/25 04:00 Pulse 131 H 03/16/25 10:56 Resp 20 03/16/25 04:00 BP 127/83 03/16/25 10:57 Pulse Ox 95 03/16/25 04:00 O2 Del Method Nasal Cannula 03/16/25 04:00 O2 Flow Rate 2 03/16/25 04:00 BMI result Body Mass Index 36.6 Const: General: awake and lethargic Orientation/consciousness: lethargic Resp: Effort & Inspection: normal respiratory effort Auscultation: clear to auscultation bilaterally Cardio: Rate: regular rate Rhythm: regular rhythm Heart sounds: S1 normal heart sound present and S2 normal heart sound present GI: Palpation (GI): Soft to palpation and nontender Skin: Trauma: abrasion (multiple abrasions on face- hematoma on forehead. ) Extrem: General: No edema Assessment & Plan Assessment and plan (1) ESRD on dialysis: Status: Acute Plan ESRD on HD MWF, HD this a.m. permcath in place H&H 9.3 & 28 calcium 8.7; phosphorous 5.1, will continue to monitor- continue binder. patient appears euvolemic blood pressures acceptable recommend low phos, low potassium and low sodium diet recommend 1.5L fluid restriction daily electrolyte and renal function studies will continue to follow, continue supportive care Discussed with Dr Victoria Time Spent With Patient Time: Total time managing care of this patient today ____ minutes. Procedures Date of Service Date of Service: 03/16/25
[2025-03-16] MEDS: Acetaminophen 325 MG TABLET 650 MG PO ×2 (12:41→20:38)
[2025-03-16] MEDS: Insulin Lispro 100 UNIT/ML 3 ML VIAL SUBCUT ×3 (12:54→20:46)
[2025-03-16] MEDS: Epoetin Alfa-epbx 10,000 UNIT/ML VIAL 10000 UNIT SUBCUT (14:02)
--- NOTE | 2025-03-16 14:02 | HO.PM.IMPN ---
Subjective Subjective Date of Service: 03/16/25 Interval History: Seen and evaluated this morning was in dialysis, developed Afib w RvR, ended session early reports constipation unable to participate with PT no other events Review of Systems Review of Systems: Yes all other systems are reviewed and are negative Physical Exam Vital Signs: Vital Signs: Last Vital Signs Temp 99.5 F 03/16/25 04:00 Pulse 131 H 03/16/25 10:56 Resp 20 03/16/25 04:00 BP 127/83 03/16/25 10:57 Pulse Ox 95 03/16/25 04:00 O2 Del Method Nasal Cannula 03/16/25 04:00 O2 Flow Rate 2 03/16/25 04:00 BMI result Body Mass Index 36.6 Const: Other: Constitutional : Awake, frail looking, not in distress Neck : Normal inspection, Supple Cardiovascular : RRR, no JVP, no lower extremity edema Respiratory : good bilateral air entry, no crackles, wheezes or rhonchi Gastrointestinal: soft, lax, Normal bowel sounds, Non tender Skin : Warm, Dry, left bruised eye, lacerations on nose , Extremities: Right shoulder in sling Neurological : Alert & oriented to place and time, No focal deficit Objective Data Active Medications Acetaminophen (Acetaminophen 325 Mg Tablet) 650 mg PO Q6H PRN PRN Reason: Pain, Mild 1-3,fever,headache Last Admin: 03/16/25 12:41 Dose: 650 mg Documented By: WILLIAM Albuterol Sulfate (Albuterol Sulfate (0.083%) 2.5 Mg/3 Ml Vial.Neb) 2.5 mg INHALE Q4H PRN PRN Reason: for wheezing Albuterol Sulfate (Albuterol Sulfate 90 Mcg 8 Gm Inhaler) 2 puff INHALE Q4H PRN PRN Reason: Wheezing/SOB Lipase/Protease/Amylase (Lipase/Prot/Amylase /60k Capsule.) 3 cap PO TIDAC [facility] Last Admin: 03/16/25 10:31 Dose: 3 cap Documented By: WILLIAM Apixaban (Apixaban 2.5 Mg Tablet) 2.5 mg PO BID [facility] Last Admin: 03/16/25 10:31 Dose: 2.5 mg Documented By: WILLIAM Artificial Tears (Artificial Tears 15 Ml Drops) 1 drop EYE-BOTH DAILY PRN PRN Reason: Dry Eye(S) Atorvastatin Calcium (Atorvastatin Calcium 40 Mg Tablet) 40 mg PO BEDTIME [facility] Last Admin: 03/15/25 21:54 Dose: 40 mg Documented By: [facility] Calcium Carbonate (Calcium Carbonate 750 Mg Tab.Chew) 750 mg PO Q4H PRN PRN Reason: Heartburn Calcium Polycarbophil (Calcium Polycarbophil Tablet) 1 tab PO DAILY [facility] Last Admin: 03/16/25 10:31 Dose: 1 tab Documented By: WILLIAM Cyanocobalamin (Cyanocobalamin (Vitamin B-12) 1,000 Mcg Tablet) 1,000 mcg PO DAILY [facility] Last Admin: 03/16/25 10:31 Dose: 1,000 mcg Documented By: WILLIAM Dextrose (Dextrose 50 % 25 Gm/50 Ml Syringe) 25 gm IVPUSH Q15M PRN; Protocol PRN Reason: per Hypoglycemia Standing Ord. Docusate Sodium (Docusate Sodium 100 Mg Capsule) 100 mg PO BID PRN PRN Reason: Constipation Ferrous Sulfate (Ferrous Sulfate 324 Mg Tablet.Dr) 324 mg PO TID [facility] Last Admin: 03/16/25 10:31 Dose: 324 mg Documented By: WILLIAM Fluticasone/Umeclidinium/Vilanterol (Fluticasone/Umeclidinium/Vilanterol 200/62.5/25 Blst.W.Dev) 1 puff INHALE DAILY [facility] Last Admin: 03/16/25 07:10 Dose: Not Given Documented By: ANNELISE Non-Admin Reason: pt off unit. Gabapentin (Gabapentin 100 Mg Capsule) 200 mg PO BEDTIME [facility] Last Admin: 03/15/25 21:55 Dose: 200 mg Documented By: [facility] Glucose (Glucose Gel 15 Gm Gel..Gram.) 15 gm PO Q15M PRN; Protocol PRN Reason: per Hypoglycemia Standing Ord. Sodium Chloride (Ns) 1,000 mls @ 50 mls/hr IVCONT .Q20H [facility] Last Admin: 03/16/25 04:10 Dose: 50 mls/hr Documented By: DANITA-NAYLA Insulin Human Lispro (Insulin Lispro 100 Unit/Ml 3 Ml Vial) 0 unit SUBCUT QIDACHS [facility]; Protocol Last Admin: 03/16/25 12:54 Dose: 2 unit Documented By: WILLIAM Ketorolac Tromethamine (Ketorolac Tromethamine 0.5% Op 5 Ml Drops) 1 drop EYE-BOTH DAILY PRN PRN Reason: Dry Eye(S) Magnesium Hydroxide (Milk Of Magnesia 30 Ml Oral.Susp) 30 ml PO DAILY PRN PRN Reason: Constipation Last Admin: 03/16/25 10:30 Dose: 30 ml Documented By: WILLIAM Meclizine HCl (Meclizine Hcl 25 Mg Tablet) 25 mg PO TID PRN PRN Reason: Dizziness Last Admin: 03/16/25 06:16 Dose: 25 mg Documented By: DANITA-CONNMayela Melatonin (Melatonin 3 Mg Tablet) 6 mg PO BEDTIME PRN PRN Reason: Insomnia Metoprolol Tartrate (Metoprolol Tartrate 25 Mg Tablet) 25 mg PO QID [facility]; Protocol Last Admin: 03/16/25 10:56 Dose: 25 mg Documented By: WILLIAM Morphine Sulfate (Morphine Sulfate 2 Mg/Ml Cartridge) 1 mg IVPUSH Q4H PRN; Protocol PRN Reason: Pain, Severe (Pain Scale 7-10) Last Admin: 03/15/25 10:55 Dose: 1 mg Documented By: LUCIAME Pt Own(Sucroferric Oxyhydroxide [ Velphoro] 500 Mg Tablet,Chewable) 500 mg PO BID@0900,1700 [facility] Last Admin: 03/16/25 10:35 Dose: 500 mg Documented By: WILLIAM Omeprazole (Omeprazole 20 Mg Capsule.) 20 mg PO DAILY [facility] Last Admin: 03/16/25 10:31 Dose: 20 mg Documented By: WILLIAM Sildenafil Citrate (Sildenafil Citrate 20 Mg Tablet) 20 mg PO TID [facility] Simethicone (Simethicone 80 Mg Tab.Chew) 160 mg PO TID PRN PRN Reason: Gas Sodium Chloride (0.9 % Sodium Chloride Flush 3 Ml Syringe) 3 ml IVFLUSH QSHIFT [facility] Last Admin: 03/16/25 09:29 Dose: 3 ml Documented By: WILLIAM Sucralfate (Sucralfate 1 Gm Tablet) 1 gm PO DAILY PRN PRN Reason: Loose Stool Vitamin D (Cholecalciferol (Vitamin D3) 25 Mcg Tablet) 50 mcg PO DAILY [facility] Last Admin: 03/16/25 10:35 Dose: 50 mcg Documented By: WILLIAM Labs 03/14/25 13:20 03/15/25 08:48 Labs: Laboratory Results - last 24 hr 03/15/25 03/15/25 03/15/25 14:11 15:28 20:42 POC Glucose 171 H 144 H 161 H 03/16/25 03/16/25 07:02 11:30 POC Glucose 117 H 176 H Assessment and Plan (1) Atrial fibrillation with rapid ventricular response: Status: Acute (2) ESRD on dialysis: Status: Acute (3) Acute hyperkalemia: Status: Acute Plan 79-year-old woman admitted after a fall found to have humeral fracture and hyperkalemia PAF with RvR MEtoprolol has been held since admission give IV Metoprolol restart Metoprolol 25 mg QID for now , monitor BP on Eliquis 2.5 mg bid Telemetry End-stage renal disease on dialysis continue dialysis ; did not finish session today, to repeat labs and do it tomorrow morning if needed Nephrology consultation Severe acute hyperkalemia Given insulin, calcium gluconate, sodium bicarbonate in the ER Emergent dialysis ordered Fall with comminuted impacted fracture of the humeral neck Sling in place Orthopedic surgery consultation Pain management PT eval pending Hypertension Continue home medications Monitor blood pressure closely Asthma Continue albuterol inhalers as needed Normocytic anemia No obvious bleeding Monitor closely DVT prophylaxis with pneumatic compression boots Full code The patient will need overnight hospital stay for Afib RvR treatment and telemetry monitoring, pending PT evaluation and pain control Quality Stroke Does the patient have a stroke diagnosis?: No VTE Prior VTE?: No VTE Risk Level:: Medical - moderate - high VTE Device Contraindication: N/A - Device Ordered VTE Drug Contraindication: N/A - Med Ordered
[2025-03-16 15:21] LABS: Glucose, Whole Blood 245 mg/dL (60-115)
[2025-03-16] MEDS: Sildenafil Citrate 20 MG TABLET PO ×2 (16:40→20:39)
[2025-03-16 20:18] LABS: Glucose, Whole Blood 154 mg/dL (60-115)
[2025-03-16] MEDS: Gabapentin 100 MG CAPSULE 200 MG PO (20:38)
[2025-03-16] MEDS: Atorvastatin Calcium 40 MG TABLET PO (20:39)
[2025-03-16] MEDS: Simethicone 80 MG TAB.CHEW 160 MG PO (20:44)
[2025-03-17 03:28] VITALS: BP 136/60; PULSE 75; RESP 18; TEMP 36.4; O2SAT 96
[2025-03-17 07:29] VITALS: BP 155/71; PULSE 70; RESP 18; TEMP 36.5; O2SAT 96
[2025-03-17 07:31] LABS: Iron 31 mcg/dL (30-160); Percent Iron Saturation 27 % (15-50); Total Iron Binding Capacity 114 mcg/dL (228-428); Unsaturated Iron Binding 83 ug/dL
[2025-03-17 07:33] LABS: Anion Gap 15 (12-20); Blood Urea Nitrogen 49 mg/dL (9-16); Calcium 7.8 mg/dL (8.4-10.2); Carbon Dioxide 25 mmol/L (22-29); Chloride 100 mmol/L (96-108); Creatinine Clr Calc Pharmacy 10.7; Estimated Glomerular Filt Rate 11; Glucose Random 114 mg/dL (60-115); Potassium 4.4 mmol/L (3.3-5.1); Sodium 136 mmol/L (135-145)
[2025-03-17 07:36] LABS: Glucose, Whole Blood 111 mg/dL (60-115)
[2025-03-17] MEDS: Fluticasone/Umeclidinium/Vilanterol 200/62.5/25 BLST.W.DEV 1 PUFF INHALE (08:08)
[2025-03-17 08:09] VITALS: PULSE 70; RESP 18; O2SAT 94
[2025-03-17] MEDS: Metoprolol Tartrate 25 MG TABLET PO (08:30)
[2025-03-17] MEDS: Omeprazole 20 MG CAPSULE.DR PO (08:30)
[2025-03-17] MEDS: Ferrous Sulfate 324 MG TABLET.DR PO (08:30)
[2025-03-17] MEDS: calcium polycarbophiL TABLET 1 TAB PO (08:30)
[2025-03-17] MEDS: Apixaban 2.5 MG TABLET PO (08:30)
[2025-03-17] MEDS: Cholecalciferol (Vitamin D3) 25 MCG TABLET 50 MCG PO (08:30)
[2025-03-17] MEDS: Lipase/Prot/Amylase 12/38/60K CAPSULE.DR 3 CAP PO ×2 (08:30→11:59)
[2025-03-17] MEDS: Sildenafil Citrate 20 MG TABLET PO (08:30)
[2025-03-17] MEDS: Cyanocobalamin (Vitamin B-12) 1,000 MCG TABLET 1000 MCG PO (08:30)
--- NOTE | 2025-03-17 08:30 | P.PNNP_ITS ---
Subjective Subjective Date of Service: 03/17/25 Interval history: Seen and evaluated this morning developed Afib w RvR during last 15 minutes of HD 03/16, has resolved continued pain from fall injury sites, states otherwise no complaints Physical Exam 2 Vital Signs: Vital Signs: Last Vital Signs Temp 97.7 F 03/17/25 11:25 Pulse 71 03/17/25 11:25 Resp 14 03/17/25 11:25 BP 146/59 H 03/17/25 11:25 Pulse Ox 95 03/17/25 11:25 O2 Del Method Room Air 03/17/25 11:25 O2 Flow Rate 2 03/16/25 04:00 BMI result Body Mass Index 36.6 Const: General: awake and lethargic Orientation/consciousness: lethargic Resp: Effort & Inspection: normal respiratory effort Auscultation: clear to auscultation bilaterally Cardio: Rate: regular rate Rhythm: regular rhythm Heart sounds: S1 normal heart sound present and S2 normal heart sound present GI: Palpation (GI): Soft to palpation and nontender Skin: Trauma: abrasion (multiple abrasions on face- hematoma on forehead. ) Extrem: General: No edema Objective Data Labs 03/14/25 13:20 03/17/25 06:53 Labs: Laboratory Results - last 24 hr 03/16/25 03/16/25 03/17/25 15:07 20:04 06:53 Sodium 136 Potassium 4.4 Chloride 100 Carbon Dioxide 25 Anion Gap 15 BUN 49 H Creatinine 4.04 H* Estim Creat Clear Calc 10.7 Estimated GFR 11 POC Glucose 245 H 154 H Random Glucose 114 Calcium 7.8 L D Iron 31 TIBC 114 L % Saturation 27 Unsat Iron Binding 83 03/17/25 03/17/25 07:27 11:15 Sodium Potassium Chloride Carbon Dioxide Anion Gap BUN Creatinine Estim Creat Clear Calc Estimated GFR POC Glucose 111 169 H Random Glucose Calcium Iron TIBC % Saturation Unsat Iron Binding Procedures Date of Service Date of Service: 03/17/25 Assessment & Plan Assessment and plan (1) ESRD on dialysis: Status: Acute Plan ESRD on HD MWF permcath in place H&H 9.3 & 28, procrit 10,000 units administered yesterday calcium 8.7; phosphorous 5.1, will continue to monitor- continue binder. patient appears euvolemic blood pressures acceptable recommend low phos, low potassium and low sodium diet recommend 1.5L fluid restriction continue supportive care patient will continue outpatient dialysis upon discharge Discussed with Dr Mccartney. Time Spent With Patient Time: Total time managing care of this patient today ____ minutes. Progress Note: Quality Stroke Does the patient have a stroke diagnosis?: No
[2025-03-17 11:21] LABS: Glucose, Whole Blood 169 mg/dL (60-115)
[2025-03-17 11:25] VITALS: BP 146/59; PULSE 71; RESP 14; TEMP 36.5; O2SAT 95
--- NOTE | 2025-03-17 11:46 | P.DS_ITS ---
DS: Providers Provider Date of Service: 03/17/25 Date of admission: 03/14/25 16:04 Date of discharge: 03/17/25 Primary care physician: Juany Rodriguez MD Consults: 03/14/25 16:08 Consult to Orthopedics Routine Consulting Provider: [facility] [place] [facility] Reason for consultation: Right shoulder fracture 03/14/25 16:17 Consult to Nephrology Routine Consulting Provider: [facility] Reason for consultation: hyperkalemia Attending physician on discharge: Mau Tapia Discharging clinician: Drea Lucio DS: Diagnosis Discharge Diagnosis (1) Atrial fibrillation with rapid ventricular response: Status: Acute (2) ESRD on dialysis: Status: Acute (3) Acute hyperkalemia: Status: Acute DS: Summary Hospital Course Hospital Course: From H&P on the day of admission 79-year-old woman presenting to the ER after sustaining a mechanical fall on her way to dialysis. She had some complaints of right shoulder, left knee and left ankle pain. Head CT, knee and ankle x-rays negative, shoulder x-ray showing comminuted impacted fracture of the humeral neck. Patient denied chest pain, shortness breath, nausea, vomiting, diarrhea, recent illness. In the ER she received insulin, calcium gluconate, sodium bicarbonate was admitted for emergent dialysis. She will be admitted for further management of treatment of hypokalemia as well as fracture. Mechanical Fall resulting in comminuted impacted fracture of the humeral neck Seen in consultation by Orthopedic surgery who recommended no acute surgical intervention. Sling for comfort. No active range of motion of the right shoulder away from the body. Outpatient follow-up with ortho Seen by Physical therapy who recommended short-term rehab however family has elected to take her home with home services. Discussed with daughter and family at the bedside, they understand she is currently a 2 assist, they report multiple family members at at all times. End-stage renal disease on dialysis Completed regularly scheduled dialysis on FridayMarch 16. Potassium levels normal, discussed with Nephrology no further need for dialysis today. Patient will resume regularly scheduled dialysis tomorrow (03/18) PAF with RvR Metoprolol had been held since admission. resolved with IV metoprolol. Resume baseline betablocker. Continued on baseline anticoagulation with Eliquis. Severe acute hyperkalemia On arrival potassium was 7.6. Given insulin, calcium gluconate, sodium bicarbonate in the ER and underwent emergent dialysis. Potassium has remained stable since. continue outpatient HD as above. Thrombocytopenia Appears chronic. Outpatient follow-up Time Attestation Discharge Coordination Time (in mins): 32 Quality: Safe Use of Opioids Does Pt have an Active Cancer Diagnosis on the Problem List?: No Quality: Stroke Does the patient have a stroke diagnosis?: No Physical Exam Vital Signs: Vital Signs: Last Vital Signs Temp 97.7 F 03/17/25 11:25 Pulse 71 03/17/25 11:25 Resp 14 03/17/25 11:25 BP 146/59 H 03/17/25 11:25 Pulse Ox 95 03/17/25 11:25 O2 Del Method Room Air 03/17/25 11:25 O2 Flow Rate 2 03/16/25 04:00 BMI result Body Mass Index 36.6 Const: General: cooperative, comfortable, alert and awake Nutritional Appearance: overweight Resp: Effort & Inspection: no respiratory distress and no use of accessory muscles Skin: Other: forehead abrasion; bruising around left eye Extrem: Other: sling right arm DS: Data Data Completed and Pending Completed studies during hospitalization [Text1]: Procedures Insertion of Infusion Device into Right Atrium, Percutaneous Approach (08/03/24) Insertion of Tunneled Vascular Access Device into Chest Subcutaneous Tissue and Fascia, Percutaneous Approach (08/03/24) Performance of Urinary Filtration, Intermittent, Less than 6 Hours Per Day (08/03/24) Labs on day of discharge: Laboratory Results - last 24 hr 03/16/25 03/16/25 03/17/25 15:07 20:04 06:53 Sodium 136 Potassium 4.4 Chloride 100 Carbon Dioxide 25 Anion Gap 15 BUN 49 H Creatinine 4.04 H* Estim Creat Clear Calc 10.7 Estimated GFR 11 POC Glucose 245 H 154 H Random Glucose 114 Calcium 7.8 L D Iron 31 TIBC 114 L % Saturation 27 Unsat Iron Binding 83 03/17/25 03/17/25 07:27 11:15 Sodium Potassium Chloride Carbon Dioxide Anion Gap BUN Creatinine Estim Creat Clear Calc Estimated GFR POC Glucose 111 169 H Random Glucose Calcium Iron TIBC % Saturation Unsat Iron Binding Discharge Plan Discharge Anticipated Discharge Date/Time: 03/17/25 12:00 Patient Disposition: Home Health Service Discharge Diagnosis: Right humeral neck fracture Hyperkalemia ESRD on hemodialysis Referrals: Guido Barnes PA [Physician Retail Financial Analyst, Hand Surgery] - 1 Week Juany Rodriguez MD [Primary Care Provider, Medical] - 1 Week Discharge Medications: New oxycodone 5 mg tablet 2.5 mg PO BID PRN (Reason: pain) Qty: 10 0RF Rx Instructions: Partial Fill upon patient request. Continued furosemide 40 mg tablet 40 mg PO DAILY Qty: 90 3RF (DME) Vortex Holding Chamber Spacer See Rx Instructions .Route Qty: 1 0RF Rx Instructions: As directed amlodipine 10 mg tablet 10 mg PO DAILY Qty: 90 2RF albuterol sulfate 2.5 mg /3 mL (0.083 %) solution for nebulization 2.5 mg inhalation Q4H PRN (Reason: for wheezing) Qty: 180 0RF lisinopril 10 mg tablet 10 mg PO DAILY Qty: 90 1RF Creon 36,000-114,000- 180,000 unit capsule,delayed release(DR/EC) 1 cap PO QID Qty: 120 3RF lansoprazole 30 mg capsule,delayed release(DR/EC) 30 mg PO DAILY Qty: 30 3RF ferrous sulfate [FeroSul] 325 mg (65 mg iron) tablet 325 mg PO TID erythromycin 5 mg/gram (0.5 %) ointment 1 appl ophthalmic (eye) BEDTIME Velphoro 500 mg tablet,chewable 500 mg PO TID PRN (Reason: Hypocalcemia) PreserVision AREDS-2 250-90-40-1 mg Tablet,Chewable 1 tab PO BID hydrocortisone 1 % ointment 1 appl topical DAILY PRN (Reason: itch) sodium polystyrene sulfonate Powder 15 g PO BEDTIME PRN (Reason: Hyperkalemia) Centrum Women 18-400 mg-mcg Tablet 1 tab PO DAILY Januvia 50 mg tablet 50 mg DAILY gabapentin 100 mg capsule 200 mg PO BEDTIME docusate sodium 100 mg capsule 100 mg PO BID PRN (Reason: constipation) atorvastatin 40 mg tablet 40 mg PO BEDTIME simethicone 180 mg capsule 180 mg PO TID PRN (Reason: Constipation) cholecalciferol (vitamin D3) 50 mcg (2,000 unit) capsule 50 mcg PO DAILY omega 3-xcb-mtm-fish oil 300 mg (120 mg- 180mg)-1,000 mg capsule 1 cap PO DAILY sennosides [senna] 8.6 mg tablet 8.6 - 17.2 mg PO DAILY PRN (Reason: Constipation) (DME) nebulizers Misc See Rx Instructions .Route Rx Instructions: As directed ketorolac 0.5 % drops 1 drp ophthalmic (eye) DAILY PRN (Reason: Dry Eye(S)) cyanocobalamin (vitamin B-12) 1,000 mcg tablet 1,000 mcg PO DAILY meclizine 25 mg tablet 25 mg PO TID PRN (Reason: Dizziness) Artificial Tears(fz-krpc-ecaz) 1-0.2-0.2 % drops 1 drp ophthalmic (eye) DAILY PRN (Reason: Dry Eye(S)) calcium polycarbophil [Fiber (calcium polycarbophil)] 625 mg tablet 625 mg PO DAILY acetaminophen 325 mg tablet 650 mg PO DAILY PRN (Reason: Pain (Scale Score 1-3)) sucralfate 1 gram tablet 1 g PO DAILY PRN (Reason: Loose Stool) (DME) FreeStyle Lite Strips Strip See Rx Instructions .ROUTE .MEDSUPPLY Qty: 10 Rx Instructions: As directed insulin aspart U-100 [Novolog FlexPen U-100 Insulin] 100 unit/mL (3 mL) insulin pen See Protocol subcut QIDACHS Protocol: Insulin Correction Scale Less than or equal to 110 ---- Give (units): 0 111 to 150 Give (units): 0 151 to 200 Give (units): 2 201 to 250 Give (units): 4 251 to 300 Give (units): 6 301 to 350 Give (units): 8 Greater than 350 Give (units): 10 Call MD if Blood Glucose > : 350 Eliquis 2.5 mg tablet 2.5 mg PO BID 90 Days Qty: 180 3RF metoprolol tartrate 50 mg tablet 50 mg PO BID 90 Days Qty: 180 3RF sildenafil (pulm.hypertension) 20 mg tablet 20 mg PO TID 90 Days Qty: 270 3RF Rx Instructions: administer doses at least 4-6 hours apart Trelegy Ellipta 200-62.5-25 mcg blister with device 1 inh inhalation DAILY 30 Days Qty: 60 12RF albuterol sulfate [Ventolin HFA] 90 mcg/actuation HFA aerosol inhaler 2 puff inhalation Q4H PRN (Reason: Wheezing/SOB) 30 Days Qty: 8.5 7RF Discharge Orders: Discharge Order (Routine); Ordered 03/17/25 Ordered By: Drea Lucio Activity on Discharge: As tolerated Stand Alone Forms: Patient Portal Discharge page Print Language: Croatian Activity Restrictions/Additional Instructions: Sling does not have to stay on at all times, would put on when she is having any kind of activity. If sling is removed, she should be allowing the arm to hang down, with no active range of motion of the shoulder away from the body. Will likely be in the sling for a few weeks Care Plan Goals: see below Health Concerns: Elevated potassium levels Right humeral fracture ESRD on hemodialysis Plan of Treatment: Call to schedule a follow-up appointment with Orthopedics for follow-up on right humerus fracture and left knee joint effusion will be discharged home with home VNA/PT services continue dialysis at regularly scheduled times low dose oxycodone for severe shoulder pain Assessment: See discharge summary
[2025-03-17] MEDS: Insulin Lispro 100 UNIT/ML 3 ML VIAL SUBCUT (11:52)
[2025-03-17] MEDS: 0.9 % Sodium Chloride Flush 3 ML SYRINGE IVFLUSH (11:56)
[2025-03-17] MEDS: oxyCODONE HCl Immed Release 5 MG TABLET 2.5 MG PO (11:59)
--- NOTE | 2025-03-17 12:05 | P.F2F_ITS ---
Service Date Service Date: 03/17/25 Encounter Date of encounter: 03/17/25 Reasons for Services Signs and symptoms assessed: right humeral head fracture Reason for physical therapy: home safety and mobility and gait/transfer training Overseeing Care: Juany Rodriguez Homebound: Leaving the home is medically contraindicated at this time without the asist of a device and/or another person due th the listed conditions above and below. Reason homebound: unsteady gait / fall risk Certification: Based on the above findings, I certify that this patient is confined to the home and needs intermittent senior care care, physical therapy and/or speech therapy, or continues to need occupational therapy. The patient is under my care, and I have initiated the establishment of the plan of care. The patient will be followed by a physician who will periodically review the plan of care. Time Spent With Patient Time: Total time managing care of this patient today ____ minutes.
--- NOTE | 2025-03-17 12:24 | MHC.CM.PN ---
Patient has been medically cleared for dc to home today, with services. A referral has been made to [facility], who has been made aware of today's dc. Last IMM was addressed on 03/15/2025.
[2025-03-17 13:41] VITALS: BP 131/56
--- NOTE | 2025-03-19 07:15 | P.CDIM_ITS ---
PROVIDER RESPONSE TEXT: To clarify, the appropriate diagnosis supported by the clinical indicators: Obesity Due to excess calories QUERY TEXT: PHYSICIAN'S DOCUMENTATION REQUEST Date of Query: 03/17/2025 06:38 AM EDT Patient Name: Belen Lemus Admit Date: 03/14/2025 Dear Georgia Chavez MD, A review of the medical record indicates additional documentation may be needed. Please review below and update the documentation accordingly. Clinical Indicators: Height: 5ft Weight: 84.9kg BMI: 36.6 Other Clinical Notes Supporting Significance of the BMI: Nursing notes Height and Weight: Obese Class II with BMI 36.6 If possible, please provide an associated diagnosis related to the abnormal BMI, such as: Overweight Obesity Due to excess calories Obesity Obesity Due to other cause Specify the other cause Other (explain) Clinically unable to determine (explain) Thank you, Gisel Mary, CCS, CDIS Use of terms such as suspected, likely, concern for, or probable (associated with a specific diagnosis that is being evaluated, monitored, or treated as if it exists) are acceptable and can be coded in the inpatient setting, when documented at the time of discharge. Please use your independent medical judgment in providing your response. THIS QUERY IS PART OF THE PERMANENT MEDICAL RECORD
== END 2025-03-17 15:49 | disposition home health service (06) | DRG 640 ==
LOC: HO.ED 15:48 → HO.EDOVER 16:08 → HO.IMC 19:26
PROVIDERS: Nurse Practitioner Family; Student in an Organized Health Care Education/Training Program; Admitting Provider Nurse Practitioner Acute Care; Emergency Provider Emergency Medicine; PCP Pediatrics; Visit Provider Physician Assistant Medical
DX: E87.5 Hyperkalemia (principal); N18.6 End stage renal disease; I13.2 Hypertensive heart and chronic kidney disease with heart failure and with stage 5 chronic kidney disease, or end stage renal disease; S42.211A Unspecified displaced fracture of surgical neck of right humerus, initial encounter for closed fracture; I50.32 Chronic diastolic (congestive) heart failure; W05.0XXA Fall from non-moving wheelchair, initial encounter; E66.09 Other obesity due to excess calories; D63.1 Anemia in chronic kidney disease; J45.909 Unspecified asthma, uncomplicated; Z68.36 Body mass index [BMI] 36.0-36.9, adult; I48.0 Paroxysmal atrial fibrillation; D69.6 Thrombocytopenia, unspecified; E11.22 Type 2 diabetes mellitus with diabetic chronic kidney disease; Z71.3 Dietary counseling and surveillance; Z99.2 Dependence on renal dialysis; Z79.4 Long term (current) use of insulin; Z79.01 Long term (current) use of anticoagulants; Z79.899 Other long term (current) drug therapy
CPT/HCPCS: 36415; 70450; 72125; 73030; 73562; 73600; 80048; 80053; 82947; 83540; 83735; 84100; 84484; 85025; 85610; 85730; 90999; 93005; 97162; 97166; 97530; 99285; J0613; J2270; Q5106

== ENCOUNTER → 2025-03-14 12:35 | Outpatient (BNV) | payer OTHER, SELFPAY | PROVIDERS: Admitting Provider Nurse Practitioner Acute Care; Emergency Provider Emergency Medicine; PCP Pediatrics; Visit Provider Internal Medicine | DX: Z13.6 Encounter for screening for cardiovascular disorders (principal); W19.XXXA Unspecified fall, initial encounter | CPT/HCPCS: 93010 ==

== ENCOUNTER → 2025-03-14 13:01 | Outpatient (BNV) | payer OTHER, SELFPAY | PROVIDERS: Emergency Provider Emergency Medicine; PCP Pediatrics; Visit Provider Radiology Diagnostic Radiology | DX: M51.34 Other intervertebral disc degeneration, thoracic region (principal); S00.83XA Contusion of other part of head, initial encounter; S42.231A 3-part fracture of surgical neck of right humerus, initial encounter for closed fracture; M17.12 Unilateral primary osteoarthritis, left knee; M85.872 Other specified disorders of bone density and structure, left ankle and foot | CPT/HCPCS: 70450; 72125; 73030; 73562; 73600 ==

== ENCOUNTER → 2025-03-14 13:05 | Outpatient (BNV) | payer OTHER, SELFPAY | PROVIDERS: Emergency Provider Emergency Medicine; PCP Pediatrics; Visit Provider Nurse Practitioner Family | DX: N18.6 End stage renal disease (principal); Z99.2 Dependence on renal dialysis | CPT/HCPCS: 90935; 99231 ==

== ENCOUNTER 2025-03-14 16:04 | Outpatient (BNV) | payer OTHER, SELFPAY | END 2025-03-16 09:14 | PROVIDERS: Admitting Provider Nurse Practitioner Acute Care; Emergency Provider Emergency Medicine; PCP Pediatrics; Visit Provider Internal Medicine | DX: I48.91 Unspecified atrial fibrillation (principal) | CPT/HCPCS: 93010 ==

== ENCOUNTER → 2025-03-14 16:04 | Outpatient (BNV) | payer OTHER, SELFPAY | PROVIDERS: Admitting Provider Nurse Practitioner Acute Care; Emergency Provider Emergency Medicine; PCP Pediatrics; Visit Provider Nurse Practitioner Acute Care | DX: I48.91 Unspecified atrial fibrillation (principal); N18.6 End stage renal disease; Z99.2 Dependence on renal dialysis; E87.5 Hyperkalemia | CPT/HCPCS: 99232; 99239 ==

== ENCOUNTER → 2025-03-14 16:04 | Outpatient (BNV) | payer OTHER, SELFPAY | PROVIDERS: Admitting Provider Nurse Practitioner Acute Care; Emergency Provider Emergency Medicine; PCP Pediatrics | DX: S72.001A Fracture of unspecified part of neck of right femur, initial encounter for closed fracture (principal) | CPT/HCPCS: 99222 ==

== ENCOUNTER → 2025-03-22 23:59 | Outpatient (BNV) | payer OTHER, SELFPAY | PROVIDERS: Visit Provider Internal Medicine Hypertension Specialist | DX: N18.6 End stage renal disease (principal) | CPT/HCPCS: 90960 ==

== ENCOUNTER 2025-03-29 08:26 | Outpatient (AMB) | payer OTHER, SELFPAY ==
--- OUTSIDE RECORDS SUMMARY | 2025-03-29 08:32 | XMS_ITS | Clinical Summary ---
Author Organization [facility] Address [address] [place] [address] Phone Care Team Providers Care Clip On Sunglasses Inspector Name Role Phone Juany Rodriguez MD Primary Care Provider [phone] Allergies Active Allergy Reactions Criticality Noted Date Comments Penicillin G Hives High 01/25/2025 Medications ascorbic acid (VITAMIN C) 500 mg tablet Take 1 tablet (500 mg total) by mouth 1 (one) time each day. Active acetaminophen (TYLENOL) 325 mg tablet TAKE TWO TABLETS EVERY 8 HOURS NEEDED FOR PAIN Active Ventolin HFA 90 mcg/actuation inhaler every 4 (four) hours if needed. Active Alcohol Prep Pads pads, medicated 01/25/20 25 Active alendronate (FOSAMAX) 70 mg tablet Take 1 tablet (70 mg total) by mouth every 7 (seven) days. 01/30/20 23 Active amLODIPine (NORVASC) 10 mg tablet Take 1 tablet (10 mg total) by mouth at bedtime. 02/07/20 20 Active ammonium lactate (LAC-HYDRIN) 12 % lotion use 2 x day 11/25/19 20 Active Eliquis 2.5 mg tablet Take 1 tablet (2.5 mg total) by mouth 2 (two) times a day. Stop insulin 3 days prior 01/14/20 25 Active atorvastatin (LIPITOR) 40 mg tablet Take 1 tablet (40 mg total) by mouth at bedtime. 01/31/20 23 Active biotin 1 mg capsule as needed OTC Active blood pressure test kit-large kit Check blood pressure on arm as directed 12/01/19 Active blood sugar diagnostic (FreeStyle Lite Strips) test strip USE TO TEST BLOOD SUGAR FOUR TIMES DAILY 12/29/19 Active Fiber, calcium polycarbophil, 625 mg tablet Take 1 tablet (625 mg total) by mouth 1 (one) time each day. 10/07/19 25 Active candesartan (ATACAND) 16 mg tablet Take 1 tablet (16 mg total) by mouth 1 (one) time each day. Active cholecalciferol (VITAMIN D-3) 50 mcg (2,000 unit) capsule Take 1 capsule (2,000 Units total) by mouth 1 (one) time each day in the morning. 11/26/19 25 Active cyanocobalamin (VITAMIN B-12) 1,000 mcg tablet Take 1 tablet (1,000 mcg total) by mouth 1 (one) time each day. 01/31/20 23 Active cycloSPORINE (RESTASIS) 0.05 % ophthalmic emulsion 1 drop every 12 (twelve) hours. 11/23/19 Active docusate sodium (COLACE) 100 mg capsule TAKE ONE CAPSULE TWICE DAILY NEEDED FOR CONSTIPATION 01/31/20 23 Active erythromycin 5 mg/gram (0.5 %) ophthalmic ointment APPLY IN EACH EYE AND BOTH LIDS AT BEDTIME 06/21/20 24 Active ferrous sulfate 325 mg (65 mg elemental iron) tablet Take 1 tablet (325 mg total) by mouth 3 times daily. 02/10/20 24 Active fluticasone HFA (FLOVENT HFA) 220 mcg/actuation inhaler Inhale 2 puffs by mouth. 01/30/20 23 Active Trelegy Ellipta 100-62.5-25 mcg inhaler INHALE ONE PUFF EVERY MORNING, RINSE MOUTH AFTER USE 01/31/20 23 Active gabapentin (NEURONTIN) 100 mg capsule Take 2 capsules orally at bedtime for neuropathy 02/13/20 23 Active hydrocortisone 1 % ointment APPLY TO THE AFFECTED AREA(S) TWICE DAILY IN THE MORNING AND AT BEDTIME NEEDED FOR ITCHING OR FOR PAIN RECTAL 07/26/20 24 Active insulin aspart (NovoLOG FlexPen) 100 unit/mL (3 mL) injection pen Give 2 units subcutaneously if sugars 150-200, 4 units if 201-250, 6 units if 251-300, 8 units if 301-350, 10 units if 350-400.Call MD if BS above 400 range 05/13/20 24 Active ipratropium-alb uteroL (DUONEB) 0.5-2.5 mg/3 mL nebulizer solution 1 uni dose now for wheezing 06/14/20 22 Active ketorolac (ACULAR) 0.5 % ophthalmic solution PLACE ONE DROP IN EACH EYE TWICE DAILY 01/20/20 25 Active Constulose solution Take 15 mL (10 g total) by mouth if needed. 12/15/19 25 Active Creon 36,000-114,000- 180,000 unit capsule,delayed release(DR/EC) Take by mouth 4 (four) times a day. 01/20/20 25 Active lisinopriL (PRINIVIL,ZESTR IL) 10 mg tablet Take 1 tablet (10 mg total) by mouth 1 (one) time each day. 11/11/19 25 Active meclizine (ANTIVERT) 25 mg tablet TAKE ONE TABLET THREE TIMES DAILY IN THE MORNING, AT NOON, AND AT BEDTIME NEEDED FOR DIZZINESS 01/04/20 25 Active Januvia 25 mg tablet Take 1 tablet (25 mg total) by mouth 1 (one) time each day in the morning. Active witch Larissa 20 % pads, medicated APPLY TO THE AFFECTED AREA(S) NEEDED FOR DISCOMFORT 11/30/19 25 Active Velphoro 500 mg chewable tablet CHEW ONE TABLET THREE TIMES DAILY WITH MEALS 08/30/20 24 Active sucralfate (CARAFATE) 100 mg/mL suspension TAKE 10 ML BY MOUTH EVERY SIX HOURS 11/19/19 23 Active senna (SENOKOT) 8.6 mg tablet TAKE TWO TABLETS DAILY NEEDED FOR CONSTIPATION 01/31/20 23 Active lansoprazole (PREVACID SOLUTAB) 30 mg dispersible [...] within 5 minutes of a meal Active Active Problems Problem Noted Date Diagnosed Date ESRD (end stage renal disease) ([facility], [facility] V28) 01/25/2025 Encounters Date Type Department Care Team Description 02/22/2025 9:00 AM EDT Office Visit [address] [address] Anshul Matthews MD ESRD (end stage renal disease) ([facility], [facility] V28) (Primary Dx) 02/01/2025 10:13 AM EDT Anesthesia Event [facility] [place] [address] [place] [phone] Saurav De Guzman MD Couture, Alison CLINICAL SCIENCES PROFESSOR 02/01/2025 10:00 AM EDT - 02/01/2025 12:00 PM EDT Surgery [facility] [place] [address] [place] [phone] Anshul Matthews MD superfisicialization left arm fistula (revision) [10540 (CPT )] 02/01/2025 8:28 AM EDT - 02/01/2025 1:01 PM EDT Hospital Encounter [facility] [place] [address] [place] [phone] Anshul Matthews MD Discharge Disposition: Home or Self Care 01/26/2025 Telephone General Surgery [address] [address] Anshul Matthews MD Prior Authorization (02/01/25 Dr. Anshul Matthews) 01/25/2025 9:00 AM EDT Consult General [address] [address] Anshul Matthews MD ESRD (end stage renal disease) ([facility], [facility] V28) (Primary Dx); Fistula from Last 3 Months Surgical History Surgery Date Site/Laterality Comments OTHER SURGICAL HISTORY HERNIA REPAIR TUBAL LIGATION AV FISTULA PLACEMENT Left arm/ with coils CATARACT EXTRACTION IRIDOTOMY / IRIDECTOMY CR INSERT RORO CVC W PORT 5YRS Right Medical History Medical History Date Comments Adverse effect of anesthesia diz zeness PONV (postoperative nausea and vomiting) COPD (chronic obstructive pu lmonary disease) ([facility], [facility] V28) Hyperlipidemia Arrhythmia Hypertension Blindness cataracts,retinO MIRACLE Diabetes mellitus ([facility], [facility] V28) GERD (gastroesophageal reflux disease) Chronic kidney disease DIALYSIS Anemia History of transfusion Dizziness Chronic pain disorder Arthritis fibromyalgia, os teoperosis Depression dementia Sleep apnea Social History Tobacco Use Types Packs/Day Years Used Date Smoking Tobacco: Never Tobacco Cessation:Counseling Given: Not Answered Alcohol Use Standard Drinks/Week Comments Never 0 (1 standard drink = 0.6 oz pur e alcohol) Interpersonal Safety Answer Date Record ed Physical Abuse 02/01/2025 Verbal Abuse 02/01/2025 Comments No Sex and Gender Information Value Date Recorded Sex Assigned at Female 01/27/2025 10:47 AM EDT Legal Sex Female 9:13 PM EST Gender Identity Not on file Sexual Orientation Not on file Obstetrics History Last Filed Vital Signs Vital Sign Reading Time Taken Comments Blood Pressure 136/76 02/22/2025 9:12 AM EDT Pulse 70 02/22/2025 9:12 AM EDT Temperature 36.1 C (97 F) 02/01/2025 12:01 PM EDT Respiratory Rate 16 02/01/2025 12:01 PM EDT Oxygen Saturation 95% 02/01/2025 12:21 PM EDT Inhaled Oxygen Concentration - - Weight 83.5 kg (184 lb) 02/22/2025 9:12 AM EDT Height 154.9 cm (5' 1 ) 01/25/2025 11:00 AM EDT Body Mass Index 34.77 01/25/2025 11:00 AM EDT Plan of Treatment Health Maintenance Due Date Last Done Comments Diabetes: Annual Foot Exam 1955 Diabetes: Annual Retina Eye Exam 1955 Zoster Vaccines (2 of 2) 08/03/2019 06/08/2019, 03/24 RSV Immunization Adult Patients (1 - 1-dose 75+ series) 12/16/2019 Medicare Annual Wellness Visit 10/17/2023 Osteoporosis Screening (Bone Density Screening) 10/17/2023 Social Influencers of Health Screening 10/17/2023 COVID-19 Vaccine ( season) 2024 08/30/2021, 02/08/2021, 01/11/2021 Diabetes: Annual Urine Albumin-Creatinine Ratio (uACR) 01/25/2025 Influenza Vaccine (#1) 2025 , 10/29/2023, 07/22/2022, Additional history exists Diabetes: Blood Sugar Control Test (HGBA1C) 06/02/2025 11/30/2024 Depression Screening 11/30/2025 11/30/2024 Diabetes: Annual GFR (Glomerular Filtration Rate) 02/01/2026 02/01/2025 Falls Risk Assessment 02/01/2026 02/01/2025 Hypertension/CHF/CAD Annual BMP Blood Test 02/01/2026 02/01/2025 DTaP,Tdap,and Td Vaccines (2 - Td or Tdap) 09/01/2028 09/01/2018 Cholesterol Screening (Lipid Panel) 07/28/2029 07/28/2024 Hepatitis B Vaccines Completed 05/30/2022, 01/02/2022, 12/05/2021 Pneumococcal Vaccine: 50+ Years Completed 09/03/2024, 11/13/2018 [...] on patient's age to complete this topic Medical Devices Implanted Type Area Mortgage Loan Counselor Device Identifier Shelf Expiration Date Model / Serial / Lot Hemostat Absorb Surgicel Nu-Knit 3x4in - Sn/A - [id number] Implanted:Qty: 1 on 02/01/2025 by Anshul Matthews MD at [facility] Hemostasis Left: Arm [employer] 08/21/2029 [id number] / N/A / [id number] Procedures Procedure Name Priority Date/Time Associated Diagnosis Comments ME YAIR AV FISTULA WO THROMBECTOMY OPEN AUTOGENOUS/NONAUTOGENO US DIALY GFT 02/01/2025 10:13 AM EDT ESRD (end stage renal disease) (CMS/HCC V24, CMS/HCC V28) Special Needs Superfisicialization Left Arm Fistula (Revision) -- Asking 90 Minutes for this case. TH AN NERVE BLOCK SUPRACLAVICULAR (NO CHARGE) Routine 02/01/2025 10:05 AM EDT TH AN NERVE BLOCK SUPRACLAVICULAR (CHARGE) Routine 02/01/2025 10:05 AM EDT PROCEDURAL ECG STAT 02/01/2025 9:59 AM EDT POCT GLUCOSE BLOOD Routine 02/01/2025 9: 12 AM EDT BASIC METABOLIC PANEL Routine 02/01/2025 8:47 AM EDT from Last 3 Months Results * TH AN NERVE BLOCK SUPRACLAVICULAR (CHARGE), TH AN NERVE BLOCK SUPRACLAVICULAR (NO CHARGE) (02/01/2025 10:05 AM EDT) Saurav Blue MD - 02/01/2025 10:05 AM EDT Saurav De Guzman MD 02/01/2025 10:18 AM Peripheral Block Patient location during procedure: pre-op Start time: 02/01/2025 10:05 AM End time: 02/01/2025 10:12 AM Reason for block: post-op pain management Staffing Performed: anesthesiologist Anesthesiologist: Saurav De Guzman MD Resident/CLINICAL SCIENCES PROFESSOR: Laine Cagle CRNA Preanesthetic Checklist Completed: patient identified, IV checked, site marked, risks and benefits discussed, surgical consent, monitors and equipment checked, pre-op evaluation and timeout performed Peripheral Block Patient position: supine Prep: ChloraPrep Patient monitoring: continuous pulse ox and heart rate (NIBP) Block type: supraclavicular Laterality: left Injection technique: single-shot Guidance: ultrasound guided and Ultrasound image saved to chart Needle Needle type: short-bevel Needle gauge: 20 G Needle length: 5 cm Needle localization: ultrasound guidance (Ultrasound with tip visualized throughout) Assessment Injection assessment: negative aspiration for heme, no paresthesia on injection, incremental injection with negative aspiration q 5ml and local visualized surrounding nerve on ultrasound Paresthesia pain: none Heart rate change: no Slow fractionated injection: yes Additional Notes Timeout performed with bedside RN. Anesthesia and surgical consent on chart. Standard aseptic technique: hat, mask, sterile gloves, eye protection. Monitors: NIBP, SpO2, EKG Sedation with meaningful contact. ChloraPrep to peripheral nerve block site. Ultrasound guidance throughout. Injectate: Ropivacaine 0.5% Volume: 25 mL Karin-neural/fascial plane visualization of local anesthetic spread. Ultrasound image saved to chart. Block performed per surgeon request (ordered on chart). Saurav De Guzman MD ANESTHESIA ORDERABLES Final Re sult * ECG 12 lead - Procedural (No Charge) (02/01/2025 9:59 AM EDT) [facility] Signature Ventricular Rate ECG 62 BPM GEMUSE Atrial Rate 62 BPM GEMUSE P-R Interval 174 ms GEMUSE QRS Duration 84 ms GEMUSE Q-T Interval 442 ms GEMUSE QTc 448 ms GEMUSE P Wave Loleta 79 degrees GEMUSE R Loleta 71 degrees GEMUSE T Loleta 88 degrees GEMUSE ECG Interpretation Sinus rhythm with occasional Premature ventricular complexes No previous ECGs available Confirmed by ADRIEL RAMIREZ ([id number]) on 02/02/2025 9:13:40 AM GEMUSE 02/01/2025 9:59 AM EDT 02/02/2025 9:13 AM EDT Anshul Matthews MD ECG ORDERABLES Final Resu lt GEMUSE * (ABNORMAL) POCT Glucose, blood (02/01/2025 9:12 AM EDT) [facility] Glucose POCT 134(H) 70 - 100 mg/dL 02/01/2025 9:13 AM [facility] Blood Capillary blood specimen / Unknown 02/01/2025 9:12 AM EDT 02/01/2025 9:14 AM EDT Anshul Matthews MD LAB POINT OF CARE TEST DOCKED DEVICE UNSOLICITED RESULTS Final Result [facility] [address] [place] [address], [place] [phone] * (ABNORMAL) Basic metabolic panel (02/01/2025 8:47 AM EDT) [facility] Sodium 138 133 - 145 mmol/L LAB CHEMISTRY METHOD 02/01/2025 10:10 AM [facility] Potassium 4.4 3.5 - 5.5 mmol/L LAB CHEMISTRY METHOD 02/01/2025 10:10 AM [facility] Chloride 101 96 - 110 mmol/L LAB CHEMISTRY METHOD 02/01/2025 10:10 AM [facility] CO2 31 21 - 32 mmol/L LAB CHEMISTRY METHOD 02/01/2025 10:10 AM [facility] Anion Gap 6 3 - 11 LAB CHEMISTRY METHOD 02/01/2025 10:10 AM [facility] Glucose 146(H) 70 - 100 mg/dL LAB CHEMISTRY METHOD 02/01/2025 10:10 AM [facility] BUN 55(H) 5 - 25 mg/dL LAB CHEMISTRY METHOD 02/01/2025 10:10 AM [facility] Creatinine 4.56(H) 0.50 - 1.10 mg/dL LAB CHEMISTRY METHOD 02/01/2025 10:10 AM [facility] eGFR 9(L) >=60 mL/min/1. 73m2 LAB CHEMISTRY METHOD 02/01/2025 10:10 AM EDT [facility] Comment:Calculation based on the Chronic Kidney Disease Epidemiology Collaboration (CKD-EPI) equation refit without adjustment for race. BUN/Creatinine Ratio 12.1 LAB CHEMISTRY METHOD 02/01/2025 10:10 AM EDT [facility] Calcium 8.7 8.5 - 10.5 mg/dL LAB CHEMISTRY METHOD 02/01/2025 10:10 AM EDT [facility] Blood Venous blood specimen / Unknown Venipuncture / Unknown 02/01/2025 8:47 AM EDT 02/01/2025 9:36 AM EDT us Anshul Matthews MD LAB BLOOD ORDERABLES Final Result [facility] [address] [place] [address], from Last 3 Months Insurance [facility] MEDICARE Member Subscriber Plan / Payer (Ef fective 2017-Present) Name:Belen Lemus Relation to Subscriber:Self Name:Belen Lemus Payer ID:[id number] Group ID:[id number] Type:Not on file Address: [address] [address] Advance Directives Documents on File Type Date Recorded Patient Window Display Designer Expl anation Advance Directives and Livin g Will 02/03/2025 12:58 PM PROXY Care Teams Clip On Sunglasses Inspector Relationship Specialty Start Date End Date Juany Rodriguez MD [address] [place] [phone] [facility] - General 04/22/24
--- OUTSIDE RECORDS SUMMARY | 2025-03-29 08:32 | XMS_ITS | Encounter Summary ---
Author Organization [employer] Address [address] [place] [address] Care Team Providers Care Flatwork Washer Name Role Phone Juany Rodriguez MD Primary Care Provider [phone] Reason for Visit * Reason Onset Date Comments Nurse Triage 08/20/2023 Encounter Details Date Type Department Care Team (Late st Contact Info) Description 08/20/2023 Telephone [facility] [address] [place] [address] Juany Rodriguez MD [address] [place] [address] Nurse Triage Social History Tobacco Use Types [...] 08/20/2023 10:38 AM EST Triage call Pt Matteo garciath SEAN Dinh, reports for last 2 days Pt has been halucinating. Pt reports pictures falling off the wall, curtains falling which are not actually occurring. PtBP is 183/95 at time of call, continues with lopresser 50mg po. Pt denies urinary symptoms. Neg forfever or ZEV sx. Pt is going for blood draw at 100pm today. Declines to come to [facility] [place]. [place] apt[place] today will obtain insted visit with [facility] insurance present. Tish agrees to this [...] caller accepted this outcome Please contact Tish [phone] documented in this encounter Plan of Treatment Upcoming Encounters Date Type Department Care Team (Late st Contact Info) Description 04/05/2025 2:45 PM EDT Office Visit [facility] [address] [place] [address] Quentin Ruelas MD [address] [place] [address] documented as of this encounter Visit Diagnoses Not on filedocumented in this encounter Care Teams Flatwork Washer Relationship Specialty Start Date End Date Juany Rodriguez MD [address] [place] [address] PCP - General Family Medicine 09/01/17 Dirk DENNISON 08/13/24 documented as of this encounter
--- OUTSIDE RECORDS SUMMARY | 2025-03-29 08:32 | XMS_ITS | Clinical Summary ---
Author Organization [facility] Address [address] [place] [address] Care Team Providers Care Beamster Name Role Phone Unavailable Primary Care Provider [...] (two) times a day. 0 12/19/2022 Active [place]-3 Fatty Acids (Fish Oil) 1000 MG CAPS [...] 67 02/13/2023 3:35 PM EDT Temperature 36.2 C (97.2 F) 02/13/2023 2:19 PM EDT Respiratory Rate - - Oxygen Saturation 100% [...] 1-dose 75+ series) 12/16/2019 Influenza Vaccine (#1) 2025 07/22/2022 Hepatitis B Vaccines Completed 05/30/2022, 01/02/2022, 12/05/2021 RSV Ped < 20 months Aged Out No longe r eligible based on patient's age to complete this topic
--- OUTSIDE RECORDS SUMMARY | 2025-03-29 08:33 | XMS_ITS | Data Portability ---
Author Organization [employer] [place] [employer] [facility] Address [address] [place] [address] Care Team Providers Care Weight Control Lecturer Name Role Phone [facility] Referring Provider [facility] Referring Provider Assessment Encounter Date Assessment Date Assessment LastModified by Organization Details LastModified Time 06/14/2022 06/14/2022 I have reviewed and agree with the Assessment and Plan as documented by the Coat Presser. I provided real -time medical direction via [...] access to them), it would reassure her. [email or web address] Not available 06/14/2022 18:40:48 Plan of Treatment Reminders Order Date Submit Date Provider Last Modified By Organization Details Last Modified Time Details Appointments None recorded. Lab glucose, fingerstick , blood [email or web address] [facility], [address] [place] [address], [phone] 17:51:12 rapid SARS CoV 2 Ag, QL IA, respiratory specimen 2021 [email or web address], [phone] 17:51:12 Referral None recorded. Procedures None recorded. Surgeries None recorded. Imaging None recorded. Medication Orders ipratropium 0.5 mg-albutero l 3 mg (2.5 mg base)/3 mL nebulizatio n soln 2021 [email or web address] 0 Not available 17:21:20 albuterol sulfate 2.5 mg/3 mL (0.083 %) solution for nebulizatio n 2021 [facility], [address] [place] [address], [phone], 18:01:10 Patient TargetsNo targets recorded. Patient InstructionsNo instructions recorded. Reason for Referral None Reported. Results Created Date Observation Date Name Description Value Unit Range Abnormal Flag Note LastModifiedBy Organization Detail LastModifiedTime 06/14/2006/14/2022 gluco se, finge rstic k, blood Blood Glucose: mg/dl 249 Not Available [address], [phone] 06/14/2022 17:29:35 06/14/20 22 06/14/2022 rapid SARS CoV 2 Ag, QL IA, respi rator y speci men rapid SARS CoV 2 Ag, QL IA, respiratory specimen negati ve Not Available [facility] ed [address] [place] [address], [phone] 06/14/2022 17:27:03 Result Notes None recorded. Medical Equipment None Reported. Allergies Allergen ID Allergen Name Allergen Category Reaction Reaction Severity Criticality Documentation Date Start Date Code Code System Note Provider Name and Address Organization Details Recorded Time 1097 Product containin g penicilli n (product) medicatio n Not available Not available Not available 06/14/2022 74836 [id number] SNOMED Not Available [employer] - production [...] Not Available Not Available No t Available [facility] spacer USE DIRECTED active Not Available Not [...] Not Available Not Available Vitals Date Recorded Body weight Provider Name an d Address Organization Details Last Updated DateTime 06/14/2022 51345.63 g Aurelia Roberts [address], [place], [phone], [place] - [employer] 06/14/2022 17:19:02 Date Recorded Oxygen saturation Oxygen saturation in Arterial blood by Pulse oximetry Respiratory rate Body temperature Heart rate Body weight Body temperature Heart rate Respiratory rate Oxygen saturation Oxygen saturation in Arterial blood by Pulse oximetry Systolic And Diastolic Systolic And Diastolic Provider Name and Address Organization Details Last Updated DateTime 95 % 95 % 22 /min 98.3 [degF] 85 /min 88675.3 36 g 98.3 [degF] 85 /min 22 /min 95 % 95 % 150/79 mm[Hg] 150/79 mm[Hg] Not Available [employer] - production 18:41:26 Social History None recorded. Functional Status None recorded. Mental Status None recorded. Family History Nothing Reported. Medical History No medical history recorded. Gynecological HistoryNo gynecological history recorded. Obstetrics History GPAL:G 0 P 0 0 0 0 Past Encounters Encounter ID Performer Location Encounter Start Date Encounter Closed Date Diagnosis/Indication Diagnosis SNOMED-CT Code Diagnosis ICD10 Code Diagnosis Note [id number] Leanne Giron MD Main - [address] [phone] 06/14/2022 17:14:21 06/24/2022 13:48:28 Acute exacerbation of chronic obstructive pulmonary disease 559221270 J44.1 increase nebs to 4 x per day may go as high as q 4 hr- if needs more consider ER Type 2 melida betes mellitus 60001378 E11.9 Health Concerns Section Related Observation LastModified by Organization Detai ls LastModified Time None Recorded Concern Status LastModified by Organization Details LastModified Time None Recorded Advance Directives Directive None Recorded Payers Insurance Date Sequence Insurance Name Policy Number Policy Burton Covered Member ID Burton Member ID Guarantor Name 08/20/2023 1 [facility] - DOS PRIOR TO 2022 - DUAL ELIGIBLE (MEDICARE REPLACEMENT/ADV ANTAGE - HMO) Belen Stone [id number] Belen Stone 08/20/2023 1 [facility] - DOS ON OR AFTER 2022 - DUAL ELIGIBLE - JAIL OPTIONS AND ONE CARE (MEDICARE REPLACEMENT/ADV ANTAGE - HMO) Belen Stone [id number] Belen Stone Notes Date Note Type Note [...] .................. .................. .................. .................. .................. .................. ..... Coat Presser Note: Sent to evaluate pt c/o wheeze+sob. [...] pt takes BID nebs. BGL 249. Consulted [facility] who ordered duoneb and rapid covid test. Rapid covid -, reassessment of lung sounds post neb are clear with better air movement. [facility] orders nebs to be increased to QID, up to Q4 PRN. Pt has pulm appt next month that she was encouraged to keep. Pt to call PCP on Friday. Went over red flags and there were no further questions or concerns at this time. .................. .................. .................. .................. .................. .................. .................. ............... Disposition: Fulfilled Leanne Giron MD [address], [place], [phone], [facility] - [employer] 06/14/2022 23:24:03 OBGyn Episode No OBEpisode recorded.
--- NOTE | 2025-03-29 08:41 | A.OFFVIS_ITS ---
Intake Visit Reasons: WF-Ypabdy-kv right humeral neck fracture Intake Note: Belen is a 79 year old right hand dominant female who presents today for a ED follow up of her right femoral neck fracture, DOI 03/14/25. Patient was seen at the ED and was given a sling for comfort. She is not having a lot of pain today in her shoulder and she is having more pain in both of her feet. IMPRESSION: Comminuted impacted fracture of the humeral neck. Allergies faviola (FAVIOLA) Adverse Reaction (Intermediate, Verified 03/29/25 08:56) NAUSEA & VOMITING Penicillins (PENICILLINS) Adverse Reaction (Unknown, Verified 03/29/25 08:56) NAUSEA & VOMITING YUCA Allergy (Unknown, Uncoded 03/14/25 12:13) NAUSEA & VOMITING SARDINES Adverse Reaction (Intermediate, Uncoded 03/14/25 12:13) NAUSEA & VOMITING HPI HPI [id number]-ez right humeral neck fracture: Details: Ms. Neyda Stone dominant female who presents to the office today for evaluation status post fall on 03/14/2025. Patient's family member is present with the patient in the exam room today. She explains that the patient was attending dialysis and she was using a front wheeled walker going up a ramp. Unfortunately she fell landing directly onto the right shoulder. She felt immediate pain and presented to the emergency department where x-rays were obtained and she was found to have a right proximal humerus fracture. She was g iven a sling and instructed to follow up with orthopedics outpatient for further evaluation and treatment. [facility] Medical History Chronic kidney disease Shortness of breath Chest discomfort Exocrine pancreatic insufficiency ANKIT (obstructive sleep apnea) Asthma Pulmonary hypertension Vasovagal syncope Type 2 diabetes mellitus with unspecified complications Essential hypertension PAF (paroxysmal atrial fibrillation) Cardiomyopathy Surgical History No pertinent past surgical history Family History Father No problems noted. Mother No problems noted. 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 Able to perform full finger flexion, extension, abduction, adduction, okay sign, and thumbs up without deficit. Able to make a closed fist. Able to flex and extend the wrist to end range. Sensation intact. Capillary refill is brisk. Radial pulse intact. Deltoid sensation is reportedly intact. Office Procedures AMB Fracture Care Fracture Billing Code: Fracture Billing Code Assessment & Plan Assessment & Plan (1) Closed fracture of right proximal humerus: Code(s): S42.201A - Unspecified fracture of upper end of right humerus, initial encounter for closed fracture Category: Medical Plan Ms. Neyda Stone dominant female who presents to the office today for evaluati on status post fall on 03/14/2025. Patient's family member is present with the patient do a past medical history of dementia. She explains that the patient was attending dialysis and she was using a front wheeled walker going up a ramp. Unfortunately she fell landing directly onto the right shoulder. She felt immediate pain and presented to the emergency department where x-rays were obtained and she was found to have a right proximal humerus fracture. She was given a sling and instructed to follow up with orthopedics outpatient for further evaluation and treatment. While the office today, we discussed the use of the sling. I encouraged the patient's family member to allow the patient to come out of the sling and let the arm hang as this will help with healing and allow for muscle relaxation. We discussed conservative treatment with this patient due to her history of dementia and inability to follow direction. I would like to see her back in 4 weeks with repeat x-rays, sooner if needed. At that time we will consider physical therapy to work on gentle range of motion based off of the amount of healing seen on x-ray. X-rays of the right shoulder which were obtained while in the office today and were reviewed by me, Laura Plascencia PA-C, revealed right comminuted proximal humerus fracture Orders: Orders XR shoulder RT min 2V Today M25.519 - Pain in unspecified shoulder Coding Level of Care Code New Pt Level 4 (84573) Diagnoses Closed fracture of right proximal humerus S42.201A CPT Codes Fracture Care - Fracture Billing Code: Fracture Billing Code ([id number])
== END 2025-03-29 09:07 | disposition home or self-care (01) ==
LOC: HO.HOS 08:26
PROVIDERS: PCP Pediatrics; Visit Provider Physician Assistant
DX: S42.201A Unspecified fracture of upper end of right humerus, initial encounter for closed fracture (principal)
CPT/HCPCS: 99204

== ENCOUNTER → 2025-03-29 08:33 | Outpatient (BNV) | payer OTHER, SELFPAY | PROVIDERS: Visit Provider Radiology Diagnostic Radiology | DX: S42.211A Unspecified displaced fracture of surgical neck of right humerus, initial encounter for closed fracture (principal); S42.141A Displaced fracture of glenoid cavity of scapula, right shoulder, initial encounter for closed fracture | CPT/HCPCS: 73030 ==

== ENCOUNTER 2025-03-29 10:27 | Outpatient (REF) | payer OTHER, SELFPAY ==
--- NOTE | ~2025-03-29 | XR_ITS ---
EXAMINATION: XR SHOULDER, RIGHT CLINICAL INFORMATION: M25.519 - Pain in unspecified shoulder COMPARISON: 03/14/2025. TECHNIQUE: Two views of the right shoulder. FINDINGS: There is an anteroinferior glenohumeral dislocation. Redemonstration of comminuted fracture of the right humeral surgical neck with extension into the greater tuberosity with mild associated displacement. Fracture lines are still well seen, with minimal sclerosis of the fracture margins, in keeping with very early healing. No gross bony callus is evident. No change in fracture alignment. There may be an associated inferior glenoid fracture. This is not well imaged and only seen on the AP projection. Mild arthritis of the AC joint. XR/XR shoulder RT min 2V IMPRESSION: 1. Comminuted fracture right humeral surgical neck with extension into greater tuberosity with mild associated displacement. Findings suggesting minimal early bony healing. No change in alignment. 2. There has been development of an anteroinferior glenohumeral joint dislocation. 3. There may be an associated inferior glenoid fracture, only partially seen given limited projection. Electronically signed by: Kevon Apple MD 03/29/2025 08:57 AM EDT
--- OUTSIDE RECORDS SUMMARY | 2025-03-30 11:20 | XMS_ITS | Clinical Summary ---
Author Organization [facility] Address [address] [place] [address] Care Team Providers Care Refrigeration Installer Name Role Phone Unavailable Primary Care Provider [...] (two) times a day. 0 12/19/2022 Active Boring-3 Fatty Acids (Fish Oil) 1000 MG CAPS [...]
--- OUTSIDE RECORDS SUMMARY | 2025-03-30 11:20 | XMS_ITS | Encounter Summary ---
Author Organization [employer] Address [address] [facility] [address] [place] [address] Care Team Providers Care Medical Staff Physician Name Role Phone Juany Rodriguez MD Primary Care Provider [phone] Reason for Visit * Reason Onset Date Comments Nurse Triage 08/20/2023 Encounter Details Date Type Department Care Team (Late st Contact Info) Description 08/20/2023 Telephone [facility] MEDIC[facility] [address] [place] [address] Juany Rodriguez MD [address] [place] [address] Nurse Triage Social History Tobacco Use Types [...] at 100pm today. Declines to come to [facility] at [facility]. No aptsavailable in [place] today will obtain insted visit with [facility] insurance present. Tish agrees to this [...] caller accepted this outcome Please contact Tish [phone] documented in this encounter Plan of Treatment Upcoming Encounters Date Type Department Care Team (Late st Contact Info) Description 04/05/2025 2:45 PM EDT Office Visit [facility] [address] [place] [address] Quentin Ruelas MD [address] [place] [address] documented as of this encounter Visit Diagnoses Not on filedocumented in this encounter Care Teams Medical Staff Physician Relationship Specialty Start Date End Date Juany Rodriguez MD [address] [place] [address] PCP - General Family Medicine 09/01/17 Dirk DENNISON 08/13/24 documented as of this encounter
--- OUTSIDE RECORDS SUMMARY | 2025-03-30 11:20 | XMS_ITS | Clinical Summary ---
Author Organization [facility] [address] [facility] Address [address] [place] [address] Phone Care Team Providers Care Human Resources Leader Name Role Phone Juany Rodriguez MD Primary Care Provider [phone] Allergies Active Allergy Reactions Criticality Noted Date [...] Diagnosed Date ESRD (end stage renal disease) ([facility] V24, [facility] V28) 01/25/2025 Encounters Date Type Department Care Team Description 02/22/2025 9:00 AM EDT Office Visit [address] [address] Anshul Matthews MD ESRD (end stage renal disease) ([facility] V24, [facility] V28) (Primary Dx) 02/01/2025 10:13 AM EDT Anesthesia Event [facility] OR [address] [place] [phone] Saurav De Guzman MD Couture, Alison INSURANCE MARKETING SPECIALIST 02/01/2025 10:00 AM EDT - 02/01/2025 12:00 PM EDT Surgery [facility] OR [address] [place] [phone] Anshul Matthews MD superfisicialization left arm fistula (revision) [49952 (CPT )] 02/01/2025 8:28 AM EDT - 02/01/2025 1:01 PM EDT Hospital Encounter [facility] OR [address] [place] [phone] Anshul Matthews MD Discharge Disposition: Home or Self Care 01/26/2025 Telephone General Surgery [address] [address] Anshul Matthews MD Prior Authorization (02/01/25 Dr. Anshul Matthews) 01/25/2025 9:00 AM EDT Consult General [address] [address] Anshul Matthews MD ESRD (end stage renal disease) ([facility] V24, [facility] V28) (Primary Dx); Fistula from Last 3 [...] vomiting) COPD (chronic obstructive pu lmonary disease) ([facility] V24, [facility] V28) Hyperlipidemia Arrhythmia Hypertension Blindness cataracts,retinO MIRACLE Diabetes mellitus ([facility] V24, [facility] V28) GERD (gastroesophageal reflux disease) Chronic kidney [...] this topic Medical Devices Implanted Type Area Rejogger Device Identifier Shelf Expiration Date Model / Serial / Lot Hemostat Absorb Surgicel Nu-Knit 3x4in - Sn/A - [id number] Implanted:Qty: 1 on 02/01/2025 by Anshul aMtthews MD at [facility] Hemostasis Left: Arm [employer] 08/21/2029 [id number] / N/A / [id number] Procedures Procedure Name Priority Date/Time Associated Diagnosis Comments [place] YAIR AV FISTULA WO THROMBECTOMY OPEN AUTOGENOUS/NONAUTOGENO [...] Performed: anesthesiologist Anesthesiologist: Saurav De Guzman MD Resident/INSURANCE MARKETING SPECIALIST: Laine Cagle CRNA Preanesthetic Checklist Completed: patient [...] Procedural (No Charge) (02/01/2025 9:59 AM EDT) [facility] Signature Ventricular Rate ECG 62 BPM GEMUSE Atrial Rate 62 BPM GEMUSE P-R Interval 174 ms GEMUSE QRS Duration 84 ms GEMUSE Q-T Interval 442 ms GEMUSE QTc 448 ms GEMUSE P Wave Hendrix 79 degrees GEMUSE R Hendrix 71 degrees GEMUSE T Hendrix 88 degrees GEMUSE ECG Interpretation Sinus rhythm with occasional Premature ventricular complexes No previous ECGs available Confirmed by ADRIEL RAMIREZ ([id number]) on 02/02/2025 9:13:40 AM GEMUSE 02/01/2025 9:59 AM EDT 02/02/2025 9:13 AM EDT Anshul Matthews MD ECG ORDERABLES Final Resu lt GEMUSE * (ABNORMAL) POCT Glucose, blood (02/01/2025 9:12 AM EDT) [facility] Glucose POCT 134(H) 70 - 100 mg/dL 02/01/2025 9:13 AM [facility] Blood Capillary blood specimen / Unknown 02/01/2025 9:12 AM EDT 02/01/2025 9:14 AM EDT Anshul Matthews MD LAB POINT OF CARE TEST DOCKED DEVICE UNSOLICITED RESULTS Final Result [facility] [address] [place] [address], [place] [phone] * (ABNORMAL) Basic metabolic panel (02/01/2025 8:47 AM EDT) [facility] Sodium 138 133 - 145 mmol/L LAB CHEMISTRY METHOD 02/01/2025 10:10 AM [facility] Potassium 4.4 3.5 - 5.5 mmol/L LAB CHEMISTRY METHOD 02/01/2025 10:10 AM [facility] Chloride 101 96 - 110 mmol/L LAB CHEMISTRY METHOD 02/01/2025 10:10 AM [facility] CO2 31 21 - 32 mmol/L LAB CHEMISTRY METHOD 02/01/2025 10:10 AM [facility] Anion Gap 6 3 - 11 LAB CHEMISTRY METHOD 02/01/2025 10:10 AM [facility] Glucose 146(H) 70 - 100 mg/dL LAB CHEMISTRY METHOD 02/01/2025 10:10 AM [facility] BUN 55(H) 5 - 25 mg/dL LAB CHEMISTRY METHOD 02/01/2025 10:10 AM [facility] Creatinine 4.56(H) 0.50 - 1.10 mg/dL LAB CHEMISTRY METHOD 02/01/2025 10:10 AM [facility] eGFR 9(L) >=60 mL/min/1. 73m2 LAB CHEMISTRY METHOD 02/01/2025 10:10 AM EDT [facility] Comment:Calculation based on the Chronic Kidney Disease Epidemiology Collaboration (CKD-EPI) equation refit without adjustment for race. BUN/Creatinine Ratio 12.1 LAB CHEMISTRY METHOD 02/01/2025 10:10 AM EDT [facility] Calcium 8.7 8.5 - 10.5 mg/dL LAB CHEMISTRY METHOD 02/01/2025 10:10 AM EDT [facility] Blood Venous blood specimen / Unknown Venipuncture / Unknown 02/01/2025 8:47 AM EDT 02/01/2025 9:36 AM EDT us Anshul Matthews MD LAB BLOOD ORDERABLES Final Result [facility] [address] [place] [address], from Last 3 Months Insurance [facility] [employer] Member Subscriber Plan / Payer (Ef fective 2017-Present) Name:Belen Lemus Relation to Subscriber:Self Name:Belen Lemus Payer ID:[id number] Group ID:[id number] Type:Not on file Address: [address] [address] Advance Directives Documents on File Type Date Recorded 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
--- OUTSIDE RECORDS SUMMARY | 2025-03-30 11:20 | XMS_ITS | Data Portability ---
Author Organization [facility] [employer] [facility] Address [address] [place] [address] Care Team Providers Care Beauty Operator Apprentice Name Role Phone [facility] Referring Provider [phone] [facility] Referring Provider Assessment Encounter Date Assessment Date Assessment LastModified by Organization Details LastModified Time 06/14/2022 06/14/2022 I have reviewed and agree with the Assessment and Plan as documented by the Nailer Operator. I provided real -time medical direction via [...] access to them), it would reassure her. [email or web address] Not available 06/14/2022 18:40:48 Plan of Treatment Reminders Order Date Submit Date Provider Last Modified By Organization Details Last Modified Time Details Appointments None recorded. Lab glucose, fingerstick , blood 2021 [email or web address] 0 [facility], [address] [place] [address], [phone] 17:51:12 rapid SARS CoV 2 Ag, QL IA, respiratory specimen 2021 [email or web address], [phone] 17:51:12 Referral None recorded. Procedures None recorded. Surgeries None recorded. Imaging None recorded. Medication Orders ipratropium 0.5 mg-albutero l 3 mg (2.5 mg base)/3 mL nebulizatio n soln 2021 [email or web address] 0 Not available 17:21:20 albuterol sulfate 2.5 mg/3 mL (0.083 %) solution for nebulizatio n 2021 [facility], [address] [place] [address], [phone], 18:01:10 Patient TargetsNo targets recorded. Patient InstructionsNo instructions recorded. Reason for Referral None Reported. Results Created Date Observation Date Name Description Value Unit Range Abnormal Flag Note LastModifiedBy Organization Detail LastModifiedTime 06/14/2006/14/2022 gluco se, finge rstic k, blood Blood Glucose: mg/dl 249 Not Available [address], [phone] 06/14/2022 17:29:35 06/14/20 22 06/14/2022 rapid SARS CoV 2 Ag, QL IA, respi rator y speci men rapid SARS CoV 2 Ag, QL IA, respiratory specimen negati ve Not Available [facility] ed [address] [place] [address], [phone] 06/14/2022 17:27:03 Result Notes None recorded. Medical Equipment None Reported. Allergies Allergen ID Allergen Name Allergen Category Reaction Reaction Severity Criticality Documentation Date Start Date Code Code System Note Provider Name and Address Organization Details Recorded Time 1097 Product containin g penicilli n (product) medicatio n Not available Not available Not available 06/14/2022 89645 [id number] SNOMED Not Available [employer] - production [...] Not Available Not Available No t Available [facility] spacer USE DIRECTED active [...] Address Organization Details Last Updated DateTime 06/14/2022 81109.63 g Aurelia Roberts [address] [facility], [place], [address], [place] [facility] [employer] 06/14/2022 17:19:02 Date Recorded Oxygen saturation Oxygen saturation in Arterial blood by Pulse oximetry Respiratory rate Body temperature Heart rate Body weight Body temperature Heart rate Respiratory rate Oxygen saturation Oxygen saturation in Arterial blood by Pulse oximetry Systolic And Diastolic Systolic And Diastolic Provider Name and Address Organization Details Last Updated DateTime 95 % 95 % 22 /min 98.3 [degF] 85 /min 06175.3 36 g 98.3 [degF] 85 /min 22 [...] Note 4170 Leanne Giron MD Main - [address] [phone] 06/14/2022 17:14:21 06/24/2022 13:48:28 Acute exacerbation of chronic obstructive pulmonary disease [id number] J44.1 increase nebs to 4 x per day may go as high as q 4 hr- if needs more consider ER Type 2 melida betes mellitus [id number] E11.9 Health Concerns Section Related Observation LastModified by Organization Detai ls LastModified Time None Recorded Concern Status LastModified by Organization Details LastModified Time None Recorded Advance Directives Directive None Recorded Payers Insurance Date Sequence Insurance Name Policy Number Policy Burton Covered Member ID Burton Member ID Guarantor Name 08/20/2023 1 [facility] - DOS PRIOR TO 2022 - DUAL ELIGIBLE (MEDICARE REPLACEMENT/ADV ANTAGE - HMO) Belen Stone [id number] Belen Stone 08/20/2023 1 [facility] - DOS ON OR AFTER 2022 - DUAL ELIGIBLE - CORRECTION OPTIONS AND ONE CARE (MEDICARE REPLACEMENT/ADV ANTAGE - HMO) Belen Stone [id number] Belen Stone Notes Date Note Type Note [...] .................. .................. .................. .................. .................. .................. ..... Nailer Operator Note: Sent to evaluate pt c/o wheeze+sob. [...] pt takes BID nebs. BGL 249. Consulted [facility] who ordered duoneb and rapid covid test. Rapid covid -, reassessment of lung sounds post neb are clear with better air movement. [facility] orders nebs to be increased to QID, up to Q4 PRN. Pt has pulm appt next month that she was encouraged to keep. Pt to call PCP on Friday. Went over red flags and there were no further questions or concerns at this time. .................. .................. .................. .................. .................. .................. .................. ............... Disposition: Fulfilled Leanne Giron MD [address] [facility], [place], [address], [facility] [employer] 06/14/2022 23:24:03 OBGyn Episode No OBEpisode recorded.
== END 2025-03-29 10:28 | disposition home or self-care (01) ==
LOC: HO.HOSX 10:27
PROVIDERS: Visit Provider Physician Assistant
DX: M25.511 Pain in right shoulder (principal); S42.211A Unspecified displaced fracture of surgical neck of right humerus, initial encounter for closed fracture; W10.2XXA Fall (on)(from) incline, initial encounter
CPT/HCPCS: 73030; 99202

== ENCOUNTER 2025-04-22 08:21 | Outpatient (REF) | payer OTHER, SELFPAY ==
--- OUTSIDE RECORDS SUMMARY | 2025-04-22 08:31 | XMS_ITS | Clinical Summary ---
Author Organization [facility] [address] [facility] Address [address] [place] [address] Phone Care Team Providers Care Commercial Internship Name Role Phone Juany Rodriguez MD Primary Care Provider [phone] Allergies Active Allergy Reactions Criticality Noted Date [...] Diagnosed Date ESRD (end stage renal disease) ([facility] V24, [facility] V28) 01/25/2025 Encounters Date Type Department Care Team Description 02/22/2025 9:00 AM EDT Office Visit [address] [phone] Anshul Matthews MD ESRD (end stage renal disease) ([facility] V24, [facility] V28) (Primary Dx) 02/01/2025 10:13 AM EDT Anesthesia Event [facility] [place] [address] [place] [phone] Saurav De Guzman MD Couture, Alison PET SITTER 02/01/2025 10:00 AM EDT - 02/01/2025 12:[address] [facility] OR [address] [place] [phone] Anshul Matthews MD superfisicialization left arm fistula (revision) [69410 (CPT )] 02/01/2025 8:28 AM EDT - 02/01/2025 1:01 PM EDT Hospital Encounter [facility] OR [address] [place] [phone] Anshul Matthews MD Discharge Disposition: Home or Self Care 01/26/2025 Telephone General Surgery [address] [address] Anshul Matthews MD Prior Authorization (02/01/25 Dr. Anshul Matthews) 01/25/2025 9:00 AM EDT Consult General [address] [address] Anshul Matthews MD ESRD (end stage renal disease) ([facility] V24, [facility] V28) (Primary Dx); Fistula from Last 3 [...] vomiting) COPD (chronic obstructive pu lmonary disease) ([facility] V24, [facility] V28) Hyperlipidemia Arrhythmia Hypertension Blindness cataracts,retinO MIRACLE Diabetes mellitus ([facility] V24, [facility] V28) GERD (gastroesophageal reflux disease) Chronic kidney [...] Vaccine ( season) 2024 08/30/2021, 02/08/2021, 01/11/2021 Depression Screening 09/22/2024 Diabetes: Annual Urine Albumin-Creatinine Ratio (uACR) 01/25/2025 Influenza Vaccine (#1) 2025 , 10/29/2023, 07/22/2022, Additional history exists Diabetes: Blood Sugar Control Test (HGBA1C) 06/02/2025 11/30/2024 Diabetes: Annual GFR (Glomerular Filtration Rate) [...] this topic Medical Devices Implanted Type Area Macaroni Press Operator Device Identifier Shelf Expiration Date Model / Serial / Lot Hemostat Absorb Surgicel Nu-Knit 3x4in - Sn/A - [id number] Implanted:Qty: 1 on 02/01/2025 by Anshul Matthews MD at [facility] Hemostasis Left: Arm [employer] 08/[birth year]/2029 1943S / N/A / [id number] Procedures Procedure Name Priority Date/Time Associated Diagnosis Comments [place] YAIR AV FISTULA WO THROMBECTOMY OPEN AUTOGENOUS/NONAUTOGENO [...] Performed: anesthesiologist Anesthesiologist: Saurav De Guzman MD Resident/PET SITTER: Laine Cagle CRNA Preanesthetic Checklist Completed: patient [...] Procedural (No Charge) (02/01/2025 9:59 AM EDT) Ventricular Rate ECG 62 BPM GEMUSE Atrial Rate 62 BPM GEMUSE P-R Interval 174 ms GEMUSE QRS Duration 84 ms GEMUSE Q-T Interval 442 ms GEMUSE QTc 448 ms GEMUSE P Wave [place] 79 degrees GEMUSE R [place] 71 degrees GEMUSE T [place] 88 degrees GEMUSE ECG Interpretation Sinus rhythm with occasional Premature ventricular complexes No previous ECGs available Confirmed by ADRIEL RAMIREZ ([id number]) on 02/02/2025 9:13:40 AM GEMUSE 02/01/2025 9:59 AM EDT 02/02/2025 9:13 AM EDT Anshul Matthews MD ECG ORDERABLES Final Resu lt GEMUSE * (ABNORMAL) POCT Glucose, blood (02/01/2025 9:12 AM EDT) Glucose POCT 134(H) 70 - 100 mg/dL 02/01/2025 9:13 AM [facility] Blood Capillary blood specimen / Unknown 02/01/2025 9:12 AM EDT 02/01/2025 9:14 AM EDT Anshul Matthews MD LAB POINT OF CARE TEST DOCKED DEVICE UNSOLICITED RESULTS Final Result [facility] [address] [place] [address], * (ABNORMAL) Basic metabolic panel (02/01/2025 8:47 AM EDT) [facility] Sodium 138 133 - 145 mmol/L LAB CHEMISTRY METHOD 02/01/2025 10:10 AM [facility] Potassium 4.4 3.5 - 5.5 mmol/L LAB CHEMISTRY METHOD 02/01/2025 10:10 AM [facility] Chloride 101 96 - 110 mmol/L LAB CHEMISTRY METHOD 02/01/2025 10:10 AM [facility] CO2 31 21 - 32 mmol/L LAB CHEMISTRY METHOD 02/01/2025 10:10 AM [facility] Anion Gap 6 3 - 11 LAB CHEMISTRY METHOD 02/01/2025 10:10 AM [facility] Glucose 146(H) 70 - 100 mg/dL LAB CHEMISTRY METHOD 02/01/2025 10:10 AM [facility] BUN 55(H) 5 - 25 mg/dL LAB CHEMISTRY METHOD 02/01/2025 10:10 AM [facility] Creatinine 4.56(H) 0.50 - 1.10 mg/dL LAB CHEMISTRY METHOD 02/01/2025 10:10 AM [facility] eGFR 9(L) >=60 mL/min/1. 73m2 LAB CHEMISTRY METHOD 02/01/2025 10:10 AM EDT [facility] Comment:Calculation based on the Chronic Kidney Disease Epidemiology Collaboration (CKD-EPI) equation refit without adjustment for race. BUN/Creatinine Ratio 12.1 LAB CHEMISTRY METHOD 02/01/2025 10:10 AM EDT [facility] Calcium 8.7 8.5 - 10.5 mg/dL LAB CHEMISTRY METHOD 02/01/2025 10:10 AM EDT [facility] Blood Venous blood specimen / Unknown Venipuncture / Unknown 02/01/2025 8:47 AM EDT 02/01/2025 9:36 AM EDT us Anshul Matthews MD LAB BLOOD ORDERABLES Final Result [facility] [address] [place] [address], from Last 3 Months Insurance [facility] MEDIC[facility] Member Subscriber Plan / Payer (Ef fective 2017-Present) Name:Belen Lemus Relation to Subscriber:Self Name:Belen Lemus Payer ID:[id number] Group ID:[id number] Type:Not on file Address: [address] [place] [phone] Advance Directives Documents on File Type Date Recorded 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
--- OUTSIDE RECORDS SUMMARY | 2025-04-22 08:31 | XMS_ITS | Encounter Summary ---
Author Organization [employer] Address [address] [place] [address] 7 [place] [address] Care Team Providers Care Lean Sensei Name Role Phone Juany Rodriguez MD Primary Care Provider [phone] Reason for Visit * Reason Onset Date Comments Nurse Triage 08/20/2023 Encounter Details Date Type Department Care Team (Late st Contact Info) Description 08/20/2023 Telephone [facility] [address] [place] [address] Juany Rodriguez MD [address] [facility] [place] [address] Nurse Triage Social History Tobacco Use Types [...] 1:24 PM EST Telephone call to update [facility] with Instead visit in motion. Grand daughter [...] at 100pm today. Declines to come to [facility] at [facility]. No aptsavailable in [place] today will obtain insted visit with [facility] insurance present. Tish agrees to [...] caller accepted this outcome Please contact Tish [phone] documented in this encounter Plan of Treatment Upcoming Encounters Date Type Department Care Team ([facility] st Contact Info) Description 06/14/2025 10:30 AM EDT Office Visit [facility] [address] [place] [address] Juany Rodriguez MD [address] [place] [address] documented as of this encounter Visit Diagnoses Not on filedocumented in this encounter Care Teams Lean Sensei Relationship Specialty Start Date End Date Juany Rodriguez MD [address] [place] [address] PCP - General Family Medicine 09/01/17 Dirk DENNISON 08/13/24 documented as of this encounter
--- OUTSIDE RECORDS SUMMARY | 2025-04-22 08:31 | XMS_ITS | Clinical Summary ---
Author Organization [facility] Address [address] [place] [address] Care Team Providers Care Athletic Trainer Name Role Phone Unavailable Primary Care Provider [...] (two) times a day. 0 12/19/2022 Active [place]-3 Fatty Acids (Fish Oil) 1000 MG CAPS [...]
== END 2025-04-22 08:22 | disposition home or self-care (01) ==
LOC: HO.HOSX 08:21
PROVIDERS: Visit Provider Physician Assistant
DX: Z13.89 Encounter for screening for other disorder (principal)

== ENCOUNTER → 2025-04-22 23:59 | Outpatient (BNV) | payer OTHER, SELFPAY | PROVIDERS: Visit Provider Internal Medicine Hypertension Specialist | DX: N18.6 End stage renal disease (principal) | CPT/HCPCS: 90961 ==

== ENCOUNTER 2025-04-26 08:34 | Outpatient (REF) | payer OTHER, SELFPAY ==
--- OUTSIDE RECORDS SUMMARY | 2025-04-27 08:44 | XMS_ITS | Encounter Summary ---
Author Organization [employer] Address [address] [place] [address] 7 [place] [address] Care Team Providers Care Cement Despatch Operator Name Role Phone Juany Rodriguez MD Primary Care Provider [phone] Reason for Visit * Reason Onset Date Comments Nurse Triage 08/20/2023 Encounter Details Date Type Department Care Team (Late st Contact Info) Description 08/20/2023 Telephone [facility] [address] [place] [address] Juany Rodriguez MD 505 [place] [address] Nurse Triage Social History Tobacco Use Types [...] 1:24 PM EST Telephone call to update [facility] with Instead visit in motion. Grand daughter [...] at 100pm today. Declines to come to [facility] at [facility]. No aptsavailable in [place] today will obtain insted visit with [facility] insurance present. Tish agrees [...] caller accepted this outcome Please contact Tish [phone] documented in this encounter Plan of Treatment Upcoming Encounters Date Type Department Care Team ([facility] st Contact Info) Description 06/14/2025 10:30 AM EDT Office Visit [facility] [address] [place] [address] Juany Rodriguez MD [address] [place] [address] documented as of this encounter Visit Diagnoses Not on filedocumented in this encounter Care Teams Cement Despatch Operator Relationship Specialty Start Date End Date Juany Rodriguez MD [address] [place] [address] PCP - General Family Medicine 09/01/17 Dirk DENNISON 08/13/24 documented as of this encounter
--- OUTSIDE RECORDS SUMMARY | 2025-04-27 08:44 | XMS_ITS | Clinical Summary ---
Author Organization [facility] Address [address] [place] [address] Care Team Providers Care Superintendent Production Name Role Phone Unavailable Primary Care Provider [...] (two) times a day. 0 12/19/2022 Active [place]-3 Fatty Acids (Fish Oil) 1000 MG CAPS [...]
--- OUTSIDE RECORDS SUMMARY | 2025-04-27 08:44 | XMS_ITS | Clinical Summary ---
Author Organization [facility] [address] [facility] Address [address] [place] [address] Phone Care Team Providers Care Hydraulic Lift Driver Name Role Phone Juany Rodriguez MD Primary Care Provider Allergies Active Allergy Reactions Criticality Noted Date [...] Diagnosed Date ESRD (end stage renal disease) ([facility] V24, [facility] V28) 01/25/2025 Encounters Date Type Department Care Team Description 02/22/2025 9:00 AM EDT Office Visit [address] [phone] Anshul Matthews MD ESRD (end stage renal disease) ([facility] V24, [facility] V28) (Primary Dx) 02/01/2025 10:13 AM EDT Anesthesia Event [facility] OR [address] [place] [phone] Saurav De Guzman MD Couture, Alison BREAKING MACHINE OPERATOR 02/01/2025 10:00 AM EDT - 02/01/2025 12:00 PM EDT Surgery [facility] OR [address] [place] [phone] Anshul Matthews MD superfisicialization left arm fistula (revision) [87857 (CPT )] 02/01/2025 8:28 AM EDT - 02/01/2025 1:01 PM EDT Hospital Encounter [facility] OR [address] [place] [phone] Anshul Matthews MD Discharge Disposition: Home or Self Care 01/26/2025 Telephone General Surgery [address] [address] Anshul Matthews MD Prior Authorization (02/01/25 Dr. Anshul Matthews) 01/25/2025 9:00 AM EDT Consult General [address] [address] Anshul Matthews MD ESRD (end stage renal disease) ([facility] V24, [facility] V28) (Primary Dx); Fistula from Last 3 [...] vomiting) COPD (chronic obstructive pu lmonary disease) ([facility] V24, [facility] V28) Hyperlipidemia Arrhythmia Hypertension Blindness cataracts,retinO MIRACLE Diabetes mellitus ([facility] V24, [facility] V28) GERD (gastroesophageal reflux disease) Chronic kidney [...] this topic Medical Devices Implanted Type Area Shingle Cutter Device Identifier Shelf Expiration Date Model / Serial / Lot Hemostat Absorb Surgicel Nu-Knit 3x4in - Sn/A - [id number] Implanted:Qty: 1 on 02/01/2025 by Anshul Matthews MD at [facility] Hemostasis Left: Arm [employer] 08/21/2029 [id number] / N/A / [id number] Procedures Procedure Name Priority Date/Time Associated Diagnosis Comments [place] YAIR AV FISTULA WO THROMBECTOMY OPEN AUTOGENOUS/NONAUTOGENO [...] Performed: anesthesiologist Anesthesiologist: Saurav De Guzman MD Resident/BREAKING MACHINE OPERATOR: Laine Cagle CRNA Preanesthetic Checklist Completed: patient [...] GEMUSE QTc 448 ms GEMUSE P Wave [place] 79 degrees GEMUSE R [place] 71 degrees GEMUSE T [place] 88 degrees GEMUSE ECG Interpretation Sinus rhythm with occasional Premature ventricular complexes No previous ECGs available Confirmed by ADRIEL RAMIREZ ([id number]) on 02/02/2025 9:13:40 AM GEMUSE 02/01/2025 9:59 AM EDT 02/02/2025 9:13 AM EDT Anshul Matthews MD ECG ORDERABLES Final Resu lt GEMUSE * (ABNORMAL) POCT Glucose, blood (02/01/2025 9:12 AM EDT) Glucose POCT 134(H) 70 - 100 mg/dL 02/01/2025 9:13 AM [facility] Blood Capillary blood specimen / Unknown 02/01/2025 9:12 AM EDT 02/01/2025 9:14 AM EDT Anshul Matthews MD LAB POINT OF CARE TEST DOCKED DEVICE UNSOLICITED RESULTS Final Result [facility] [address] [place] [address], * (ABNORMAL) Basic metabolic panel (02/01/2025 8:47 AM EDT) [facility] Sodium 138 133 - 145 mmol/L LAB CHEMISTRY METHOD 02/01/2025 10:10 AM [facility] Potassium 4.4 3.5 - 5.5 mmol/L LAB CHEMISTRY METHOD 02/01/2025 10:10 AM [facility] Chloride 101 96 - 110 mmol/L LAB CHEMISTRY METHOD 02/01/2025 10:10 AM [facility] CO2 31 21 - 32 mmol/L LAB CHEMISTRY METHOD 02/01/2025 10:10 AM [facility] Anion Gap 6 3 - 11 LAB CHEMISTRY METHOD 02/01/2025 10:10 AM [facility] Glucose 146(H) 70 - 100 mg/dL LAB CHEMISTRY METHOD 02/01/2025 10:10 AM [facility] BUN 55(H) 5 - 25 mg/dL LAB CHEMISTRY METHOD 02/01/2025 10:10 AM [facility] Creatinine 4.56(H) 0.50 - 1.10 mg/dL LAB CHEMISTRY METHOD 02/01/2025 10:10 AM [facility] eGFR 9(L) >=60 mL/min/1. 73m2 LAB CHEMISTRY METHOD 02/01/2025 10:10 AM EDT [facility] Comment:Calculation based on the Chronic Kidney Disease Epidemiology Collaboration (CKD-EPI) equation refit without adjustment for race. BUN/Creatinine Ratio 12.1 LAB CHEMISTRY METHOD 02/01/2025 10:10 AM EDT [facility] Calcium 8.7 8.5 - 10.5 mg/dL LAB CHEMISTRY METHOD 02/01/2025 10:10 AM EDT [facility] Blood Venous blood specimen / Unknown Venipuncture / Unknown 02/01/2025 8:47 AM EDT 02/01/2025 9:36 AM EDT us Anshul Matthews MD LAB BLOOD ORDERABLES Final Result [facility] [address] [place] [address], from Last 3 Months Insurance [facility] MEDICARE Member Subscriber Plan / Payer (Ef fective 2017-Present) Name:Belen Lemus Relation to Subscriber:Self Name:Belen Lemus Payer ID:[id number] Group ID:[id number] Type:Not on file Address: [address] [place] [address] Advance Directives Documents on File Type Date Recorded Patient Grounds And Nursery Specialist Expl anation Advance Directives and Livin g Will 02/03/2025 12:58 PM PROXY Care Teams Hydraulic Lift Driver Relationship Specialty Start Date End Date Juany Rodriguez MD [address] [place] [phone] PCP - General 04/22/24
== END 2025-04-26 08:35 | disposition home or self-care (01) ==
LOC: HO.HOSX 08:34
PROVIDERS: Visit Provider Physician Assistant
DX: Z13.89 Encounter for screening for other disorder (principal)

== ENCOUNTER 2025-05-10 08:56 | Outpatient (REF) | payer OTHER, SELFPAY ==
--- NOTE | ~2025-05-10 | XR_ITS ---
EXAMINATION: XR SHOULDER, RIGHT CLINICAL INFORMATION: M25.519 - Pain in unspecified shoulder COMPARISON: March 29, 2025 TECHNIQUE: Two views of the right shoulder. FINDINGS: Again seen is deformity from chronic impacted fracture of the surgical neck of the humerus. On the scapular view, humeral head is not well demonstrated and appears to project along the anterior glenoid. XR/XR shoulder RT min 2V IMPRESSION: Anterior shoulder dislocation versus subluxation. 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 Electronically signed by: Cal Pathak MD 05/10/2025 10:26 AM EDT
--- OUTSIDE RECORDS SUMMARY | 2025-05-11 09:39 | XMS_ITS | Clinical Summary ---
Author Organization [facility] [address] [facility] Address [address] [place] [address] Phone Care Team Providers Care Therapy Tech Name Role Phone Juany Rodriguez MD Primary [...] Diagnosed Date ESRD (end stage renal disease) ([facility] [place]24, [facility] V28) 01/25/2025 Encounters Date Type Department Care Team Description 02/22/2025 9:00 AM EDT Office Visit General Surgery - [address] [place] [address] Anshul Matthews MD ESRD (end stage renal disease) ([facility] V24, [facility] V28) (Primary Dx) from Last 3 Months Surgical History Surgery Date Site/Laterality Comments OTHER SURGICAL HISTORY HERNIA REPAIR TUBAL LIGATION AV FISTULA PLACEMENT Left arm/ with coils CATARACT EXTRACTION IRIDOTOMY / IRIDECTOMY CR INSERT RORO CVC W PORT 5YRS Right Medical History Medical History Date Comments Adverse effect of anesthesia diz zeness PONV (postoperative nausea and vomiting) COPD (chronic obstructive pu lmonary disease) ([facility], [facility] V28) Hyperlipidemia Arrhythmia Hypertension Blindness cataracts,retinO MIRACLE Diabetes mellitus ([facility]24, [facility] V28) GERD (gastroesophageal reflux [...] this topic Medical Devices Implanted Type Area Process Improvement Manager Device Identifier Shelf Expiration Date Model / Serial / Lot Hemostat Absorb Surgicel Nu-Knit 3x4in - Sn/A - [id number] Implanted:Qty: 1 on 02/01/2025 by Anshul Matthews MD at [facility] Hemostasis Left: Arm [employer] [...] LAB CHEMISTRY METHOD 02/01/2025 10:10 AM EDT [facility] BUN 55(H) 5 - 25 mg/dL LAB CHEMISTRY METHOD 02/01/2025 10:10 AM [facility] Creatinine 4.56(H) 0.50 - 1.10 mg/dL LAB CHEMISTRY METHOD 02/01/2025 10:10 AM [facility] eGFR 9(L) >=60 mL/min/1. 73m2 LAB CHEMISTRY METHOD 02/01/2025 10:10 AM T [facility] Comment:Calculation based on the Chronic Kidney Disease Epidemiology Collaboration (CKD-EPI) equation refit without adjustment for race. BUN/Creatinine Ratio 12.1 LAB CHEMISTRY METHOD 02/01/2025 10:10 AM [facility] Calcium 8.7 8.5 - 10.5 mg/dL LAB CHEMISTRY METHOD 02/01/2025 10:10 AM [facility] Blood Venous blood specimen / Unknown Venipuncture / Unknown 02/01/2025 8:47 AM EDT 02/01/2025 9:36 AM EDT Anshul Matthews MD LAB BLOOD ORDERABLES Final Result [facility] [address] [place] [address], from Last 3 Months or Most Recently Relevant to Health Maintenance [place] [address] [place] [address] MEDICARE Member Subscriber Plan / Payer (Ef fective 2017-Present) Name:Belen Lemus Relation to Subscriber:Self Name:Belen Lemus Payer ID:[id number] Group ID:[id number] Type:Not on file Address: [address] [place] [address] Advance Directives Documents on File Type Date Recorded Patient Product Marketing Specialist Expl teresa Advance Directives and Garrison g Will 02/03/2025 12:58 PM PROXY Care Teams Therapy Tech Relationship Specialty Start Date End Date Junay Rodriguez MD [address] [place] [address] PCP - General 04/22/24
--- OUTSIDE RECORDS SUMMARY | 2025-05-11 09:39 | XMS_ITS | Clinical Summary ---
Author Organization [facility] Address [address] [place] [address] Care Team Providers Care Heel Dipper Name Role Phone Unavailable Primary Care Provider [...] (two) times a day. 0 12/19/2022 Active [place]-3 Fatty Acids (Fish Oil) 1000 MG CAPS [...]
--- OUTSIDE RECORDS SUMMARY | 2025-05-11 09:39 | XMS_ITS | Encounter Summary ---
Author Organization [employer] Address [address] [place] [address] 7 [place] [address] Care Team Providers Care Legal Research Analyst Name Role Phone Juany Rodriguez MD Primary Care Provider [phone] Reason for Visit * Reason Onset Date Comments Nurse Triage 08/20/2023 Encounter Details Date Type Department Care Team (Late st Contact Info) Description 08/20/2023 Telephone [facility] MEDICINE [address] [place] [address] Juany Rodriguez MD 505 [place] [address] Nurse Triage Social History Tobacco Use Types [...] at 100pm today. Declines to come to [facility] at [facility]. No aptsavailable in [place] today will obtain insted visit with [facility] insurance present. Tish agrees to [...] caller accepted this outcome Please contact Tish [phone] documented in this encounter Plan of Treatment Upcoming Encounters Date Type Department Care Team ([facility] st Contact Info) Description 06/14/2025 10:30 AM EDT Office Visit [facility] CHC MED & PEDS [address] [place] [address] Juany Rodriguez MD [address] [place] [address] documented as of this encounter Visit Diagnoses Not on filedocumented in this encounter Care Teams Legal Research Analyst Relationship Specialty Start Date End Date Juany Rodriguez MD [address] [place] [address] PCP - General Family Medicine 09/01/17 Dirk DENNISON 08/13/24 documented as of this encounter
== END 2025-05-10 08:57 | disposition home or self-care (01) ==
LOC: HO.HOSX 08:56
PROVIDERS: Visit Provider Physician Assistant
DX: S42.201D Unspecified fracture of upper end of right humerus, subsequent encounter for fracture with routine healing (principal); M25.511 Pain in right shoulder; X58.XXXD Exposure to other specified factors, subsequent encounter
CPT/HCPCS: 73030; 99212

== ENCOUNTER 2025-05-10 10:00 | Outpatient (AMB) | payer OTHER, SELFPAY ==
--- NOTE | 2025-05-10 10:22 | A.OFFVIS_ITS ---
Vital Signs 05/10/25 10:29 Height 5 ft Weight 187 lb BMI 36.5 Intake Visit Reasons: OV - right proximal humerus fx, DOI 03/14/25 Intake Note: Belen is a 79 year old right hand dominant female who presents today with her COORDINATOR OF REHABILITATION SERVICES for a follow up of her right femoral neck fracture, DOI 03/14/25. At her last visit she was advised to discontinue the sling. She was also referred to work with physical therapy to work on gentle range of motion. Patient reports she has been doing at home exercises and she is feeling better. ROM has improved but she is still unable to lift her arm up. Allergies faviola (FAVIOLA) Adverse Reaction (Intermediate, Verified 05/10/25 10:29) NAUSEA & VOMITING Penicillins (PENICILLINS) Adverse Reaction (Unknown, Verified 05/10/25 10:29) NAUSEA & VOMITING YUCA Allergy (Unknown, Uncoded 03/14/25 12:13) NAUSEA & VOMITING SARDINES Adverse Reaction (Intermediate, Uncoded 03/14/25 12:13) NAUSEA & VOMITING HPI HPI OV - right proximal humerus fx, DOI 03/14/25: Details: Ms. Neyda Stone is an 79-year-old right-hand dominant female who presents to the office today for routine follow-up of a right proximal humerus fracture. Patient presents again with her COORDINATOR OF REHABILITATION SERVICES who accompanies her due to baseline of dementia and inability to follow direction. Her COORDINATOR OF REHABILITATION SERVICES states that the patient has been working hard on gentle range of motion of the right upper extremity. She is able to reach the side of her head. She does not complain of any pain or discomfort. [facility] Medical History Chronic kidney disease Shortness of breath Chest discomfort Exocrine pancreatic insufficiency ANKIT (obstructive sleep apnea) Asthma Pulmonary hypertension Vasovagal syncope Type 2 diabetes mellitus with unspecified complications Essential hypertension PAF (paroxysmal atrial fibrillation) Cardiomyopathy Surgical History No pertinent past surgical history Family History Father No problems noted. Mother No problems noted. Social History Household Members: Children Housing: Apartment Do you presently have visiting nurse or other home services: Yes (COORDINATOR OF REHABILITATION SERVICES) Alcohol intake: never Patient Tobacco Use Status: Never used Tobacco service: No Review of Systems Const All systems reviewed & are unremarkable except as noted in HPI and below Physical Exam Vital Signs: BMI result Body Mass Index 36.5 Const General: cooperative, healthy appearing and no acute distress Resp Effort & Inspection: normal respiratory effort and able to speak in complete sentences Extrem Other: Right upper extremity able to reach the side of her head. Able to perform full finger flexion, extension, abduction, adduction, okay sign, and thumbs up without deficit. Able to make a closed fist. Able to flex and extend the wrist to end range. Sensation intact. Capillary refill is brisk. Radial pulse intact. Psych Appearance: grossly normal Mental Status: mental status grossly normal Attitude: cooperative Assessment & Plan Assessment & Plan (1) Closed fracture of right proximal humerus: Code(s): S42.201A - Unspecified fracture of upper end of right humerus, initial encounter for closed fracture Category: Medical Plan Ms. Neyda Stone is an 79-year-old right-hand dominant female who presents to the office today for routine follow-up of a right proximal humerus fracture. Patient presents again with her COORDINATOR OF REHABILITATION SERVICES who accompanies her due to baseline of dementia and inability to follow direction. Her COORDINATOR OF REHABILITATION SERVICES states that the patient has been working hard on gentle range of motion of the right upper extremity. She is able to reach the side of her head. She does not complain of any pain or discomfort. On the office today, we again discussed continuation of conservative management of the right proximal humerus fracture. I have ordered [facility] services to come to the home to start working on formal physical therapy. Patient attends dialysis Friday and her PCI reports that [facility] services would only be able to come to the home on Tuesdays. They should concentrate on gentle range of motion. Nonweightbearing right upper extremity. I would like to see the patient back in 6 weeks with repeat x-rays, sooner if needed. X-rays of the right shoulder which were obtained while in the office today and were reviewed by me, Laura Plascencia PA-C, revealed routine healing proximal humerus fracture. Orders: Orders XR shoulder RT min 2V Today M25.519 - Pain in unspecified shoulder Referrals [facility] Referral S42.201A - Unspecified fracture of upper end of right humerus, initial encounter for closed fracture Coding Level of Care Code Est Pt Level 3 (32171) Diagnoses Closed fracture of right proximal humerus S42.201A
[2025-05-10 10:29] VITALS: BMI 36.5
--- OUTSIDE RECORDS SUMMARY | 2025-05-10 11:10 | XMS_ITS | Clinical Summary ---
Author Organization [facility] Address [address] [place] [address] Care Team Providers Care Micro Photographer Name Role Phone Unavailable Primary Care Provider [...] (two) times a day. 0 12/19/2022 Active [place]-3 Fatty Acids (Fish Oil) 1000 MG CAPS [...]
--- OUTSIDE RECORDS SUMMARY | 2025-05-10 11:10 | XMS_ITS | Encounter Summary ---
Author Organization [employer] Address [address] [place] [address] 7 [place] [address] Care Team Providers Care Middle School Music Teacher Name Role Phone Juany Rodriguez MD Primary Care Provider [phone] Reason for Visit * Reason Onset Date Comments Nurse Triage 08/20/2023 Encounter Details Date Type Department Care Team (Late st Contact Info) Description 08/20/2023 Telephone [facility] [address] [place] [address] Juany Rodriguez MD 505 [place] [address] Nurse Triage Social History Tobacco Use Types [...] 1:24 PM EST Telephone call to update [facility] with Instead visit in motion. Grand [...] at 100pm today. Declines to come to [facility] at [facility]. No aptsavailable in [place] today will obtain insted visit with Coffey [...] caller accepted this outcome Please contact Tish [phone] documented in this encounter Plan of Treatment Upcoming Encounters Date Type Department Care Team ([facility] st Contact Info) Description 06/14/2025 10:30 AM EDT Office Visit [facility] [address] [place] [address] Juany Rodriguez MD [address] [place] [address] documented as of this encounter Visit Diagnoses Not on filedocumented in this encounter Care Teams Middle School Music Teacher Relationship Specialty Start Date End Date Juany Rodriguez MD [address] [place] [address] PCP - General Family Medicine 09/01/17 Dirk DENNISON 08/13/24 documented as of this encounter
--- OUTSIDE RECORDS SUMMARY | 2025-05-10 11:10 | XMS_ITS | Clinical Summary ---
Author Organization [facility] [address] [facility] Address [address] [place] [address] Phone Care Team Providers Care Hydrogenation Operator Name Role Phone Juany Rodriguez MD Primary Care Provider [phone] Allergies Active Allergy Reactions Criticality Noted Date [...] Diagnosed Date [place]D (end stage renal disease) [place] [place] [facility] V28) 01/25/2025 Encounters Date Type Department Care Team Description 02/22/2025 9:00 AM EDT Office Visit General Surgery - [address] [place] [address] Anshul Matthews MD ESRD (end stage renal disease) ([facility] [place], [facility] [place]) (Primary Dx) from Last 3 Months Surgical History Surgery Date Site/Laterality Comments OTHER SURGICAL HISTORY HERNIA REPAIR TUBAL LIGATION AV FISTULA PLACEMENT Left arm/ with coils CATARACT EXTRACTION IRIDOTOMY / IRIDECTOMY CR INSERT RORO CVC W PORT 5YRS Right Medical History Medical History Date Comments Adverse effect of anesthesia diz zeness PONV (postoperative nausea and vomiting) COPD (chronic obstructive pu lmonary disease) ([facility] [place], [facility] [place]) Hyperlipidemia Arrhythmia Hypertension Blindness cataracts,retinO MIRACLE Diabetes mellitus ([facility] [place], [facility] [place]) GERD (gastroesophageal reflux disease) Chronic kidney [...] this topic Medical Devices Implanted Type Area Worksite Wellness Practitioner Device Identifier Shelf Expiration Date Model / Serial / Lot Hemostat Absorb Surgicel Nu-Knit 3x4in - Sn/A - [id number] Implanted:Qty: 1 on 02/01/2025 by Anshul Matthews MD at [facility] Hemostasis Left: Arm [employer] 08/21/2029 [id number] / N/A / [id number] Procedures Procedure Name Priority Date/Time Associated Diagnosis Comments BASIC METABOLIC PANEL Routine 02/01/2025 8:47 AM EDT from Last 3 Months or Most Recently Relevant to Health Maintenance Results * (ABNORMAL) Basic metabolic panel (02/01/2025 8:47 AM EDT) Sodium 138 133 - 145 mmol/L LAB CHEMISTRY METHOD 02/01/2025 10:10 AM [facility] Potassium 4.4 3.5 - 5.5 mmol/L LAB CHEMISTRY METHOD 02/01/2025 10:10 AM [facility] Chloride 101 96 - 110 mmol/L LAB CHEMISTRY METHOD 02/01/2025 10:10 AM [facility] CO2 31 21 - 32 mmol/L LAB CHEMISTRY METHOD 02/01/2025 10:10 AM [facility] Anion Gap 6 3 - 11 LAB CHEMISTRY METHOD 02/01/2025 10:10 AM [facility] Glucose 146(H) 70 - 100 mg/dL LAB CHEMISTRY METHOD 02/01/2025 10:10 AM EDT [facility] BUN 55(H) 5 - 25 mg/dL LAB CHEMISTRY METHOD 02/01/2025 10:10 AM [facility] Creatinine 4.56(H) 0.50 - 1.10 mg/dL LAB CHEMISTRY METHOD 02/01/2025 10:10 AM [facility] eGFR 9(L) >=60 mL/min/1. 73m2 LAB CHEMISTRY METHOD 02/01/2025 10:10 AM T [facility] Comment:Calculation based on the Chronic Kidney Disease Epidemiology Collaboration (CKD-EPI) equation refit without adjustment for race. BUN/Creatinine Ratio 12.1 LAB CHEMISTRY METHOD 02/01/2025 10:10 AM [facility] Calcium 8.7 8.5 - 10.5 mg/dL LAB CHEMISTRY METHOD 02/01/2025 10:10 AM [facility] Blood Venous blood specimen / Unknown Venipuncture / Unknown 02/01/2025 8:47 AM EDT 02/01/2025 9:36 AM EDT Anshul Matthews MD LAB BLOOD ORDERABLES Final Result [facility] [address] [place] [address], from Last 3 Months or Most Recently Relevant to Health Maintenance [place] [address] [place] [address] MEDICARE Member Subscriber Plan / Payer (Ef fective 2017-Present) Name:Belen Lemus Relation to Subscriber:Self Name:Belen Lemus Payer ID:[id number] Group ID:[id number] Type:Not on file Address: [address] [place] [address] Advance Directives Documents on File Type Date Recorded Patient Machine Tender Expl teresa Advance Directives and Garrison g Will 02/03/2025 12:58 PM PROXY Care Teams Hydrogenation Operator Relationship Specialty Start Date End Date Juany Rodriguez MD [address] [place] [address] PCP - General 04/22/24
== END 2025-05-10 10:57 | disposition home or self-care (01) ==
LOC: HO.HOS 10:01
PROVIDERS: Visit Provider Physician Assistant
DX: S42.201A Unspecified fracture of upper end of right humerus, initial encounter for closed fracture (principal)
CPT/HCPCS: 99213

== ENCOUNTER → 2025-05-10 10:07 | Outpatient (BNV) | payer OTHER, SELFPAY | PROVIDERS: Visit Provider Radiology Diagnostic Radiology | DX: M25.511 Pain in right shoulder (principal) | CPT/HCPCS: 73030 ==

== ENCOUNTER → 2025-05-23 23:59 | Outpatient (BNV) | payer OTHER, SELFPAY | PROVIDERS: Visit Provider Internal Medicine Hypertension Specialist | DX: N18.6 End stage renal disease (principal) | CPT/HCPCS: 90961 ==

== ENCOUNTER 2025-06-21 09:20 | Outpatient (REF) | payer OTHER, SELFPAY ==
--- OUTSIDE RECORDS SUMMARY | 2025-06-22 10:07 | XMS_ITS | Encounter Summary ---
Author Organization [employer] Address [address] [place] [address] 7 [place] [address] Care Team Providers Care Public Welfare Worker Name Role Phone Juany Rodriguez MD Primary Care Provider [phone] Reason for Visit * Reason Comments Med Refill Encounter Details Date Type Department Care Team ([facility] st Contact Info) Description 03/18/2023 Refill [facility] CHC MED & PEDS [address] [place], [place] [phone] Juany Rodriguez MD [address] [place], [place] [phone] Severe pulmonary hypertension (CMS/HCC) Social History Tobacco [...] as of this encounter Plan of Treatment Not on file documented as of this encounter Visit Diagnoses Diagnosis Severe pulmonary hypertension (CMS/HCC) (HCC) documented in this encounter Care Teams Public Welfare Worker Relationship Specialty Start Date End Date Juany Rodriguez MD [address] [place] [address] PCP - General Family Medicine 09/01/17 Dirk DENNISON 08/13/24 documented as of this encounter
--- OUTSIDE RECORDS SUMMARY | 2025-06-22 10:07 | XMS_ITS | Encounter Summary ---
Author Organization [employer] Address [address] [facility] 7 [place] [address] Care Team Providers Care Paper Bag Maker Name Role Phone Juany Rodriguez MD Primary Care Provider [phone] Reason for Visit * Reason Onset Date Comments Med Refill 12/03/2024 Encounter Details Date Type Department Care Team (Late st Contact Info) Description 12/03/2024 Telephone [facility] MEDICINE [address] [place] [address] Juany Rodriguez MD 505 [facility] [place] [phone] Med Refill Social History Tobacco Use Types [...] 10:32 AM EDT Sexual Orientation Straight 03/19/2024 3 :38 PM EDT documented as of this encounter Miscellaneous Notes * Telephone Encounter - Anamaria Batista LPN - 12/03/2024 11:51 AM EDT Medication pended to PCP. * Telephone Encounter - Andreas Diallo - 12/03/2024 11:48 AM EDT TC from pt requesting medication refill. Medications needing refill : meclizine (Antivert) 25 MG tablet metoprolol tartrate (Lopressor) 50 MG tablet To be sent to: [facility] [place] - [address] [facility] documented in this encounter Plan of Treatment Not on file documented as of this encounter Visit Diagnoses Not on filedocumented in this encounter Additional Health Concerns Assessment Noted Time PHQ-9 Depression Total Score: 8 12/01/19 25 11:36 AM EDT documented as of this encounter Care Teams Paper Bag Maker Relationship Specialty Start Date End Date Juany Rodriguez MD 505 [facility] [place] [place] [address] PCP - General Family Medicine 09/01/17 Dirk DENNISON 08/13/24 documented as of this encounter
--- OUTSIDE RECORDS SUMMARY | 2025-06-22 10:07 | XMS_ITS | Encounter Summary ---
Author Organization [employer] Address [address] [facility] 7t [place] [address] Care Team Providers Care Imagery Intelligence Name Role Phone Juany Rodriguez MD Primary Care Provider [phone] Encounter Details Date Type Department Care Team (Late st Contact Info) Description 05/14/2024 Orders Only [facility] [address] [place] [address] Rashmi Marquez MD 505 [facility] [place] [phone] Type 2 diabetes mellitus with hyperglycemia, with long-term current use of insulin ([facility]) (Primary Dx) Social History Tobacco Use Types [...] hyperglycemia, with long-term current use of insulin (HCC)- Primary documented in this encounter Care Teams Imagery Intelligence Relationship Specialty Start Date End Date Juany Rodriguez MD [address] [place] [address] PCP - General Family Medicine 09/01/17 Dirk DENNISON 08/13/24 documented as of this encounter
--- OUTSIDE RECORDS SUMMARY | 2025-06-22 10:07 | XMS_ITS | Encounter Summary ---
Author Organization [employer] Address [address] [place] [address] 7 [place] [address] Care Team Providers Care Dye House Vat Worker Name Role Phone Juany Rodriguez MD Primary Care Provider [phone] Reason for Visit * Reason Onset Date Comments Nurse Triage 08/20/2023 Encounter Details Date Type Department Care Team (Late st Contact Info) Description 08/20/2023 Telephone [facility] MEDICINE [address] [place] [address] Juany Rodriguez MD [address] [place] [address] Nurse Triage Social History Tobacco Use Types [...] 1:24 PM EST Telephone call to update [facility] with Instead visit in motion. Grand [...] at 100pm today. Declines to come to [facility] at [facility]. No aptsavailable in [place] today will obtain insted visit with [facility] insurance present. Tish agrees to this [...] caller accepted this outcome Please contact Tish [phone] documented in this encounter Plan of Treatment Not on file documented as of this encounter Visit Diagnoses Not on filedocumented in this encounter Care Teams Dye House Vat Worker Relationship Specialty Start Date End Date Juany Rodriguez MD [address] [place] [address] PCP - General Family Medicine 09/01/17 Dirk DENNISON 08/13/24 documented as of this encounter
--- OUTSIDE RECORDS SUMMARY | 2025-06-22 10:07 | XMS_ITS | Encounter Summary ---
Author Organization [employer] Address [address] [place] [address] 7 [place] [address] Care Team Providers Care Cabinet Abrasive Sandblaster Name Role Phone Juany Rodriguez MD Primary Care Provider [phone] Reason for Visit * Reason Comments Med Refill Encounter Details Date Type Department Care Team ([facility] st Contact Info) Description 05/04/2025 Refill [facility] CHC MED & PEDS [address] [place] [address] Juany Rodriguez MD [address] [place], [place] [phone] Pain Social History Tobacco Use Types Packs/Day [...] documented as of this encounter Care Teams Cabinet Abrasive Sandblaster Relationship Specialty Start Date End Date Juany Rodriguez MD [address] [place] [address] PCP - General Family Medicine 09/01/17 Dirk DENNISON 08/13/24 documented as of this encounter
--- OUTSIDE RECORDS SUMMARY | 2025-06-22 10:07 | XMS_ITS | Encounter Summary ---
Author Organization [employer] Address [address] [place] [address] 7 [place] [address] Care Team Providers Care Plastics Fabricator Name Role Phone Juany Rodriguez MD Primary Care Provider [phone] Reason for Visit * Reason Onset Date Comments script fax 06/14/2025 Encounter Details Date Type Department Care Team ([facility] st Contact Info) Description 06/14/2025 Telephone [facility] CHC MED & PEDS [address] [place], [place] [phone] Juany Rodriguez MD [address] [place], [place] [phone] script fax Social History Tobacco Use Types Packs/Day Years [...] encounter Miscellaneous Notes * Telephone Encounter - Julieta Batista - 06/14/2025 1:35 PM EDT Tc from pt granddaughter requesting for script for orthopedic shoes be faxed over too [facility] Contact granddaughter at [phone] documented in this encounter Plan of Treatment Not on file documented as of this encounter Visit Diagnoses Not on filedocumented in this encounter Additional Health Concerns Assessment Noted Time PHQ-9 Depression Total Score: 8 12/01/19 25 11:36 AM EDT documented as of this encounter Care Teams Plastics Fabricator Relationship Specialty Start Date End Date Juany Rodriguez MD [address] [place] [address] PCP - General Family Medicine 09/01/17 Dirk DENNISON 08/13/24 documented as of this encounter
--- OUTSIDE RECORDS SUMMARY | 2025-06-22 10:07 | XMS_ITS | Encounter Summary ---
Author Organization [employer] Address [address] [place] [address] 7 [place] [address] Care Team Providers Care Production Sorter Name Role Phone Juany Rodriguez MD Primary Care Provider [phone] Reason for Visit * Reason Comments Med Refill Encounter Details Date Type Department Care Team ([facility] st Contact Info) Description 12/28/2024 Refill [facility] CHC MED & PEDS [address] [place], [place] [phone] Juany Rodriguez MD [address] [place], [place] [phone] Type 2 diabetes mellitus without complication, without [...] complication, without long-term current use of insulin (HCC) Severe pulmonary hypertension (CMS/HCC) (HCC) documented in this encounter Additional Health Concerns Assessment Noted Time PHQ-9 Depression Total Score: 8 12/01/19 25 11:36 AM EDT documented as of this encounter Care Teams Production Sorter Relationship Specialty Start Date End Date Juany Rodriguez MD [address] [place] [address] PCP - General Family Medicine 09/01/17 Dirk DENNISON 08/13/24 documented as of this encounter
--- OUTSIDE RECORDS SUMMARY | 2025-06-22 10:07 | XMS_ITS | Encounter Summary ---
Author Organization [employer] Address [address] [facility] 7 [place] [address] Care Team Providers Care Slitter And Rewinder Machine Operator Name Role Phone Juany Rodriguez MD Primary Care Provider [phone] Reason for Visit * Reason Onset Date Comments Med Refill 05/16/2025 Encounter Details Date Type Department Care Team (Late st Contact Info) Description 05/16/2025 Telephone [facility] MEDICINE [address] [place] [address] Juany Rodriguez MD 505 [place] [address] Med Refill Social History Tobacco Use Types [...] Telephone Encounter - Anamaria Batista LPN - 05/16/2025 9:38 AM EDT 90 day supply of Vitamin D sent to [facility] on 04/05/25. Creon not prescribed by PCP (GI). Other medication pended to PCP. * Telephone Encounter - Tc Johnson - 05/16/2025 9:23 AM EDT TC from pt requesting medication refill. Medications needing refill: metoprolol tartrate (Lopressor) 50 MG tablet cholecalciferol VITAMIN D (Vitamin D-3) 50 MCG (1999 UT) capsule Creon [id number] units capsule delayed-release particles capsule To be sent to: [facility] - [place] - [address] [place] [address] St documented in this encounter Plan of Treatment Not on file documented as of this encounter Visit Diagnoses Not on filedocumented in this encounter Additional Health Concerns Assessment Noted Time PHQ-9 Depression Total Score: 8 12/01/19 25 11:36 AM EDT documented as of this encounter Care Teams Slitter And Rewinder Machine Operator Relationship Specialty Start Date End Date Juany Rodriguez MD [address] [place] [address] PCP - General Family Medicine 09/01/17 Dirk DENNISON 08/13/24 documented as of this encounter
--- OUTSIDE RECORDS SUMMARY | 2025-06-22 10:07 | XMS_ITS | Encounter Summary ---
Author Organization [employer] Address [address] [facility] 7t [place] [address] Care Team Providers Care Cash Sales Audit Clerk Name Role Phone Juany Rodriguez MD Primary Care Provider [phone] Reason for Visit * Reason Comments Med Refill Encounter Details Date Type Department Care Team ([facility] st Contact Info) Description 08/11/2024 Refill [facility] CHC MED & PEDS [address] [place], [place] [phone] Araceli Clifford MD [address] [place], [place] [phone] Social History Tobacco Use Types Packs/Day Years [...] on filedocumented in this encounter Care Teams Cash Sales Audit Clerk Relationship Specialty Start Date End Date Juany Rodriguez MD [address] [place] [address] PCP - General Family Medicine 09/01/17 Dirk DENNISON 08/13/24 documented as of this encounter
--- OUTSIDE RECORDS SUMMARY | 2025-06-22 10:07 | XMS_ITS | Clinical Summary ---
Author Organization [facility] [address] [facility] Address [address] [place] [address] Phone Care Team Providers Care Paper Baling Machine Operator Name Role Phone Juany Rodriguez MD Primary Care Provider [phone] Allergies Active Allergy Reactions Criticality Noted Date [...] Diagnosed Date ESRD (end stage renal disease) ([facility] V24, [facility] V28) 01/25/2025 Surgical History Surgery Date Site/Laterality Comments OTHER SURGICAL HISTORY HERNIA REPAIR TUBAL LIGATION AV FISTULA PLACEMENT Left arm/ with coils CATARACT EXTRACTION IRIDOTOMY / IRIDECTOMY CR INSERT RORO CVC W PORT 5YRS Right Medical History Medical History Date Comments Adverse effect of anesthesia diz zeness PONV (postoperative nausea and vomiting) COPD (chronic obstructive pu lmonary disease) ([facility] V24, [facility] V28) Hyperlipidemia Arrhythmia Hypertension Blindness cataracts,retinO MIRACLE Diabetes mellitus ([facility] V24, [facility] V28) GERD (gastroesophageal [...] Safety Answer Date Record ed Physical Abuse Unrecognized value 02/01/2025 Verbal Abuse Unrecognized value 02/01/2025 Comments No Sex and Gender Information [...] 10/17/2023 Social Influencers of Health Screening 10/17/2023 Depression Screening 09/22/2024 Diabetes: Annual Urine Albumin-Creatinine Ratio (uACR) 01/25/2025 COVID-19 Vaccine ( season) 2025 08/30/2021, 02/08/2021, 01/11/2021 Influenza Vaccine (#1) 2025 , 10/29/2023, 07/22/2022, [...] this topic Medical Devices Implanted Type Area Shift Mgr Device Identifier Shelf Expiration Date Model / Serial / Lot Hemostat Absorb Surgicel Nu-Knit 3x4in - Sn/A - [id number] Implanted:Qty: 1 on 02/01/2025 by Anshul Matthews MD at [facility] Hemostasis Left: Arm [employer] 08/21/2029 [...] LAB CHEMISTRY METHOD 02/01/2025 10:10 AM EDT [facility] eGFR 9(L) >=60 mL/min/1. 73m2 LAB CHEMISTRY METHOD 02/01/2025 10:10 AM EDT [facility] Comment:Calculation based on the Chronic Kidney Disease Epidemiology Collaboration (CKD-EPI) equation refit without adjustment for race. BUN/Creatinine Ratio 12.1 LAB CHEMISTRY METHOD 02/01/2025 10:10 AM EDT [facility] Calcium 8.7 8.5 - 10.5 mg/dL LAB CHEMISTRY METHOD 02/01/2025 10:10 AM EDT [facility] Blood Venous blood specimen / Unknown Venipuncture / Unknown 02/01/2025 8:47 AM EDT 02/01/2025 9:36 AM EDT us Anshul Matthews MD LAB BLOOD ORDERABLES Final Result [facility] [address] [place] [address], [place] [phone] from Last 3 Months or Most Recently Relevant to Health Maintenance [place] [address] [place] [address] MEDICARE Member Subscriber Plan / Payer (Ef fective 2017-Present) Name:Belen Lemus Relation to Subscriber:Self Name:Belen Lemus Payer ID:[id number] Group ID:[id number] Type:Not on file Address: [place] [address] [address] [place] [id number] Advance Directives Documents on File Type Date Recorded Patient Seam Stay Stitcher Expl anation Advance Directives and Livin g Will 02/03/2025 12:58 PM PROXY Care Teams Paper Baling Machine Operator Relationship Specialty Start Date End Date Juany Rodriguez MD [address] [place] [id number] [facility] - General 04/22/24
--- OUTSIDE RECORDS SUMMARY | 2025-06-22 10:07 | XMS_ITS | Encounter Summary ---
Author Organization [employer] Address [address] [place] [address] 7 [place] [address] Care Team Providers Care Sugar Refiner Name Role Phone Juany Rodriguez MD Primary Care Provider [phone] Reason for Visit * Reason Comments Med Refill Encounter Details Date Type Department Care Team ([facility] st Contact Info) Description 01/12/2023 Refill [facility] [address] [place] [address] Juany Rodriguez MD [address] [place] [address] Pain Social History Tobacco Use Types Packs/Day [...] pain documented in this encounter Care Teams Sugar Refiner Relationship Specialty Start Date End Date Juany Rodriguez MD [address] [place] [address] PCP - General Family Medicine 09/01/17 Dirk DENNISON 08/13/24 documented as of this encounter
--- OUTSIDE RECORDS SUMMARY | 2025-06-22 10:07 | XMS_ITS | Clinical Summary ---
Author Organization [employer] Address [address] [place] [address] 7[address] [place] [address] Care Team Providers Care Bioprocess Development Engineer Name Role Phone Juany Rodriguez MD Primary Care Provider [phone] Allergies Active Allergy Reactions Criticality Noted Date [...] 1 tablet by oral route daily Active cycloSPORINE (Restasis) 0.05 % ophthalmic emulsion instill 1 drop by ophthalmic route every 12 hours into affected eye(s) 10 mL 023 Active Neomycin-Polymyx in-HC 1 % solution Administer 3 drops into affected ear(s) 4 times daily. 10 mL 023 Active ipratropium-albu terol (Duo-Neb) 0.5-2.5 mg/3 mL nebulizer solution 1 uni dose now for wheezing 022 Active albuterol (Ventolin HFA) 108 (90 Base) [...] complication, without long-term current use of insulin (HCC),Severe pulmonary hypertension (CMS/HCC) ([facility]) TAKE ONE TABLET AT BEDTIME 90 tablet 3 024 Active Respiratory Therapy Supplies (Nebulizer/Tubin g/Mouthpiece) kitIndications:M ild persistent asthma without complication To be used with Nebulizer 1 kit 2 Active insulin aspart FlexPen (NovoLOG) 100 UNIT/ML pen Give 2 units subcutaneously if sugars 150-200, 4 units if 201-250, 6 units if 251-300, 8 units if 301-350, 10 units if 350-400.Call MD if BS above 400 range 1 each 024 Active albuterol (2.5 MG/3ML) 0.083% nebulizer solutionIndicati ons:Severe pulmonary hypertension (CMS/HCC) ([facility]) INHALE ONE AMPULE USING A NEBULIZER EVERY 4 HOURS NEEDED 90 mL 3 024 Active hydrocortisone 1 % ointment APPLY TO THE AFFECTED AREA(S) TWICE DAILY IN THE MORNING AND AT BEDTIME NEEDED FOR ITCHING OR FOR PAIN RECTAL 28 g 11 024 Active docusate sodium (Colace) 100 MG capsule TAKE ONE CAPSULE TWICE DAILY NEEDED FOR CONSTIPATION 180 capsule 025 Active Blood Pressure Monitoring (Comfort Touch BP Cuff/Medium) [facility] Needs another BP cuff please to check BP 1 each 025 Active sildenafil (Revatio) 20 MG tablet TAKE ONE TABLET THREE TIMES DAILY FOUR TO SIX HOURS APART 90 tablet 3 025 Active amLODIPine (Norvasc) 10 MG tablet TAKE ONE TABLET EVERY DAY 30 tablet 3 025 Active Eliquis 2.5 MG tablet Take 1 tablet by mouth 2 times daily. Active Trelegy Ellipta 200-62.5-25 MCG/ACT aerosol powder Inhale 1 puff 1 (one) time each day at the same time. RINSE MOUTH AFTER USE 025 Active ketorolac (Acular) 0.5 % ophthalmic solution Administer 1 drop into both eyes 2 times daily. Active lansoprazole (Prevacid) [address] capsule Take 1 capsule by mouth Once per day. Active lisinopril 10 MG tablet Take 1 tablet by mouth Once per day. Active Creon [id number] units capsule delayed-release particles capsule Take 1 capsule by mouth 4 times daily. With meals and snack Active Sucroferric Oxyhydroxide 500 MG chewable tablet Chew 1 tablet with breakfast, with lunch, and with evening meal. Active cyanocobalamin (Vitamin B-12) 1000 MCG tablet TAKE ONE TABLET DAILY 90 tablet Active glucose blood (FREESTYLE LITE) test stripIndications :Type 2 diabetes mellitus without complication, without long-term current use of insulin ([facility]) USE TO TEST BLOOD SUGAR FOUR TIMES DAILY 100 strip 11 Active metoprolol tartrate (Lopressor) 50 MG tablet TAKE ONE TABLET TWICE DAILY 60 tablet 5 Active acetaminophen (Tylenol) 325 MG tabletIndication s:Pain TAKE TWO TABLETS EVERY 8 HOURS NEEDED FOR PAIN 180 tablet 1 Active senna (Senokot) 8.6 MG tablet TAKE TWO TABLETS EVERY DAY NEEDED FOR CONSTIPATION 60 tablet 3 Active simethicone (Simethicone Ultra Strength) 180 MG capsuleIndicatio ns:Type 2 diabetes mellitus without complication, without long-term current use of insulin ([facility]),Severe pulmonary hypertension (CMS/HCC) ([facility]) TAKE TWO CAPSULES THREE TIMES DAILY 180 capsule 3 Active Witch Stacey (Medi-Pads) 50 % pads APPLY TO THE AFFECTED AREA(S) NEEDED FOR DISCOMFORT 100 each 5 Active SITagliptin (Januvia) 50 MG tablet TAKE ONE TABLET EVERY DAY 30 tablet 11 Active furosemide (Lasix) 40 MG tabletIndication s:Type 2 diabetes mellitus without complications (HCC),Pulmonary hypertension, unspecified (CMS/HCC) ([facility]) TAKE ONE TABLET TWICE DAILY 60 tablet Active Embecta Pen Needle Ultrafine 31G X 5 MM miscIndications: Type 2 diabetes mellitus without complication, without long-term current use of insulin ([facility]) USE THREE DAILY 100 each Active Alcohol Swabs (Alcohol Prep) 70 % padsIndications: Type 2 diabetes mellitus without complication, without long-term current use of insulin ([facility]) USE THREE DAILY DIRECTED 100 each Active meclizine (Antivert) 25 MG tablet TAKE ONE TABLET BID prn dizziness 60 tablet Active cholecalciferol VITAMIN D (Vitamin D-3) 50 MCG (1999 UT) capsule TAKE ONE CAPSULE EVERY MORNING 90 capsule Active gabapentin (Neurontin) 100 MG capsule TAKE TWO CAPSULES EVERY NIGHT AT BEDTIME FOR NEUROPATHY 60 capsule Active lactulose 20 gram/30 mL oral solution Take 15 mL (10 g) by mouth 2 times daily. 450 mL Active Mouthwashes (Biotene Dry Mouth) liquid Swish and spit 15 ml daily 473 mL Active SITagliptin (Januvia) 50 MG tablet Take 1 tablet (50 mg) by mouth Once per day. 30 tablet 2024 Discontinued Alcohol Swabs (Alcohol Prep) padsIndications: Type 2 diabetes mellitus without complication, without long-term current use of insulin ([facility]) Use tid prn insulin injections 100 each 024 2024 Discontinued pen needle 31G x 5 mm miscIndications: Type 2 diabetes mellitus without complication, without long-term current use of insulin ([facility]) Use as instructed tid 100 each 024 2024 Discontinued Gama Ibarra (Medi-Pads) 50 % pads APPLY TO THE AFFECTED AREA(S) NEEDED FOR DISCOMFORT 100 each 2024 Discontinued senna (Senokot) 8.6 MG tablet TAKE TWO TABLETS DAILY NEEDED FOR CONSTIPATION 60 tablet 2024 Discontinued simethicone (Simethicone Ultra Strength) 180 MG capsuleIndicatio ns:Type 2 diabetes mellitus without complication, without long-term current use of insulin ([facility]),Severe pulmonary hypertension (CMS/HCC) (HCC) TAKE TWO CAPSULES THREE TIMES DAILY 180 capsule 3 /03/ 2025 Discontinued acetaminophen (Tylenol) 325 MG tabletIndication s:Pain TAKE TWO TABLETS BY MOUTH EVERY 8 HOURS NEEDED FOR PAIN 180 tablet 1 025 2024 Discontinued furosemide (Lasix) 40 MG tabletIndication s:Type 2 diabetes mellitus without complications (HCC),Pulmonary hypertension, unspecified ([facility]) (HCC) Take 1 tablet (40 mg) by mouth 2 times daily. 60 tablet 025 2024 Discontinued cholecalciferol VITAMIN D (Vitamin D-3) 50 MCG (1999) capsule TAKE ONE CAPSULE EVERY MORNING 90 capsule 025 2024 Discontinued(R eorder (will not trigger notification to Pharmacy)) gabapentin (Neurontin) 100 MG capsule TAKE TWO CAPSULES EVERY NIGHT AT BEDTIME FOR NEUROPATHY 60 capsule 025 2024 Discontinued meclizine (Antivert) 25 MG tablet TAKE ONE TABLET THREE TIMES DAILY IN THE MORNING, AT NOON, AND AT BEDTIME NEEDED FOR DIZZINESS 30 tablet 025 2024 Discontinued meclizine (Antivert) 25 MG tablet TAKE ONE TABLET THREE TIMES DAILY IN THE MORNING, AT NOON, AND AT BEDTIME NEEDED FOR DIZZINESS 30 tablet 025 2024 Discontinued(R eorder (will not trigger notification to Pharmacy)) gabapentin (Neurontin) 100 MG capsule TAKE TWO CAPSULES EVERY NIGHT AT BEDTIME FOR NEUROPATHY 60 capsule 025 2024 Discontinued(R eorder (will not trigger notification to Pharmacy)) Active Problems Problem Noted Date Diagnosed Date ESRD (end stage renal disease) on dialysis ([facility]) 06/14/2025 Acute on chronic diastolic (congestive) heart fa ilure 11/30/2024 PAF (paroxysmal atrial fibrillation) 11/30/2024 Chronic right shoulder pain 03/19/2024 Assessment & Plan (05/09/2024 10:15 PM EDT): No recent trauma, had a xray done recently, pending results, continue home remedies, if pain not improved and results available could consider cortisone injection Mental status, decreased 10/13/2023 Assessment & Plan (04/05/2025 3:40 PM EDT): Will send DME for wipes, she is not receiving enough wipes Iron deficiency anemia 12/27/2022 Severe pulmonary hypertension ([facility]) 10/16/19 Primary degenerative dementi a of the Alzheimer [...] 09/06/2019 CKD (chronic kidney disease), stage III ([facility] ) 05/13/2018 Overview (10/16/2022): Update for Diagnosis Load Dyslipidemia 03/04/2018 Benign essential hypertension 08/06/2017 Chronic depression 08/06/2017 Type 2 diabetes mellitus 08/06/2017 Asthma 08/06/2017 Encounters Date Type Department Care Team Description 06/14/2025 10:30 AM EDT Office Visit [facility] [address] [place] [address] Juany Rodriguez MD Benign essential hypertension (Primary Dx); Type 2 diabetes mellitus without complication, without long-term current use of insulin ([facility]); ESRD (end stage renal disease) on dialysis ([facility]) 06/14/2025 Telephone [facility] [address] [place] [address] Juany Rodriguez MD script fax 06/14/2025 Travel 06/06/2025 Telephone [facility] [address] [place] [address] Juany Rodriguez MD Durable Medical Equipment 06/06/2025 Refill [facility] [address] [place] [address] Juany Rodriguez MD Type 2 diabetes mellitus without complication, without long-term current use of insulin (CMS/HCC) 06/04/2025 Refill [facility] [address] [place] [address] Juany Rodriguez MD 06/03/2025 Refill [facility] [address] [place] [address] Juany Rodriguez MD Type 2 diabetes mellitus without complications (CMS/HCC); Pulmonary hypertension, unspecified (CMS/HCC) 05/21/2025 Refill [facility] [address] [place] [address] Juany Rodriguez MD Pain; Type 2 diabetes mellitus without complication, without long-term current use of insulin (CMS/HCC); Severe pulmonary hypertension (CMS/HCC) 05/16/2025 Telephone [facility] [address] [place] [address] Juany Rodriguez MD Med Refill 05/16/2025 Refill [facility] [address] [place] [address] Juany Rodriguez MD Type 2 diabetes mellitus without complication, without long-term current use of insulin (CMS/HCC) 05/10/2025 Refill [facility] [address] [place] [address] Juany Rodriguez MD 05/04/2025 Refill [facility] [address] [place] [address] Juany Rodriguez MD Pain 04/26/2025 Refill [facility] [address] [place] [address] Quentin Ruelas MD 04/26/2025 Refill [facility] [address] [place] [address] Juany Rodriguez MD 04/22/2025 Telephone [facility] [address] [place] [address] Juany Rodriguez MD 04/20/2025 Telephone [facility] [address] [place] [address] Juany Rodriguez MD Durable Medical Equipment 04/05/2025 2:45 PM EDT Office Visit [facility] [address] [place] [address] Quentin Ruelas MD PAF (paroxysmal atrial fibrillation) ([facility]) (Primary Dx); Type 2 diabetes mellitus without complication, without long-term current use of insulin ([facility]); Type 2 diabetes mellitus with stage 5 chronic kidney disease not on chronic dialysis, with long-term current use of insulin ([facility]); Mental status, decreased; Other closed nondisplaced fracture of proximal end of right humerus with routine healing, subsequent encounter; Hospital discharge follow-up 04/05/2025 Travel 04/04/2025 Refill [facility] [address] [place] [address] Juany Rodriguez MD Type 2 diabetes mellitus without complications ([facility]); Pulmonary hypertension, unspecified ([facility]) 04/01/2025 Telephone [facility] [address] [place] [address] Juany Rodriguez MD Med Refill 03/28/2025 Refill [facility] [address] [place] [address] Aurea Dunn MD 03/25/2025 Refill [facility] [address] [place] [address] Juany Rodriguez MD Pain from Last 3 Months Immunizations Immunization Administration Dates Next Due Hep B, adult [...] Sign Reading Time Taken Comments Blood Pressure 128/72 06/14/2025 10:52 AM EDT Pulse 64 06/14/2025 10:52 AM EDT Temperature 36.2 C (97.1 F) 06/14/2025 10:52 AM EDT Respiratory Rate 20 06/14/2025 10:52 AM EDT Oxygen Saturation 96% 11/30/2024 11:30 AM EDT Inhaled Oxygen Concentration - - Weight 88 kg (194 lb) 06/14/2025 10:52 AM EDT Height 154.9 cm (5' 1 ) 04/05/2025 3:00 PM EDT Body Mass Index 36.66 04/05/2025 3:00 PM EDT Plan of Treatment Health Maintenance Due Date Last Done Comments Eye Exam 1955 Zoster Vaccines (2 of 2) 08/03/2019 06/08/2019, 03/24 RSV Patients and Patients Aged 60 years or older (1 - 1-dose 75+ series) 12/16/2019 Diabetes: Foot Exam 12/30/2024 12/31/2023, 12/31/2023, 12/31/2023, Additional history exists SDOH Screening 12/30/2024 12/31/2023 COVID-19 Vaccine ( season) 2025 08/30/2021, 02/08/2021, 01/11/2021 Influenza Vaccine (#1) 2025 , 10/29/2023, 07/22/2022, Additional history exists Lipid Panel 07/28/2025 07/28/2024 Diabetes: Hemoglobin A1C 09/13/2025 025, 11/30/2024, 05/12/2024, Additional history exists Alcohol/Substance Use Screening 11/30/2025 11/30/2024 Depression Screening 11/30/2025 11/30/2024, 12/01/19 25 Tobacco Screening 06/14/2026 06/14/2025 DTaP/Tdap/Td Vaccines (2 - Td or Tdap) [...] Diagnosis Comments POCT GLYCATED HEMOGLOBIN, TOTAL Routine 06/14/2025 11:16 AM EDT Type 2 diabetes mellitus without complication, without long-term current use of insulin ([facility]) POCT GLUCOSE Routine 06/14/2025 11:16 AM EDT Type 2 diabetes mellitus without complication, without long-term current use of insulin ([facility]) POCT GLUCOSE Routine 04/05/2025 3:03 PM EDT Type 2 diabetes mellitus without complication, without long-term current use of insulin ([facility]) LIPID PANEL, STANDARD Routine 07/28/2024 12:33 PM EST Dyslipidemia from Last 3 Months or Most Recently Relevant to Health Maintenance Results * (ABNORMAL) POCT Hgb A1c (06/14/2025 11:16 AM EDT) Hemoglobin A1C 7.0(A) 4.0 - 5.7 % Blood 06/14/2025 11:1 6 AM EDT us Juany Rodriguez MD POINT OF CARE TEST ENTER/EDIT ORDERABLES Final Result * (ABNORMAL) POCT Glucose (06/14/2025 11:16 AM EDT) Only the most recent of2 resultswithin the time period is included. Glucose Blood, POC 254(A) 60 - 200 mg/dL Blood Capillary blood specimen / Unknown 06/14/2025 11:16 AM EDT us Juany Rodriguez MD POINT OF CARE TEST ENTER/EDIT ORDERABLES Final Result * (ABNORMAL) Lipid Panel, Standard (07/28/2024 12:33 PM EST) Triglycerides 52 <150 mg/dL [facility] Comment:Desirable Triglyceri de: less than 150 mg/dLBorderline High Triglyceride 150-199 mg/dLHigh Triglyceride: 200-499 mg/dLVery High Triglyceride: greater than or equal to 5OO mg/dL Cholesterol 177 <200 mg/dL [facility] Comment:Desirable Cholestero l: less than 200 mg/dLBorderline High Cholesterol: 200-239 mg/dLHigh Cholesterol: greater than 239 mg/dL LDL Cholesterol Calculated 115(H) <100 mg/dL [facility] Comment:Desirable LDL: less than 100 mg/dLNear Optimal/Above Optimal LDL: 110- 129 mg/dLBorderline High LDL: 130-159 mg/dLHigh LDL: 160-189 mg/dLVery High LDL: greater than or equal to 190 mg/dL HDL Cholesterol 52 >40 mg/dL [facility] Comment:Desirable HDL: great er than 40 mg/dL Note: This HDL assay may give artificially low results in patients with liver disease. Blood Venous blood specimen / Unknown 07/28/2024 12:33 PM EST 07/28/2024 2:18 PM EST us Juany Rodriguez MD LAB BLOOD ORDERABLES Final Re sult [facility] [address] [place], [place] [phone] from Last 3 Months or Most Recently Relevant to Health Maintenance Insurance [facility] [employer] (HMO D-SNP) [address] [place] [id number] Advance Directives Documents on File Type Date Recorded Patient Drive In Waiter/Waitress Expl anation Advance Directives and Livin g Will 09/20/2024 2:37 PM HCP Care Teams Bioprocess Development Engineer Relationship Specialty Start Date End Date Juany Rodriguez MD [address] [place] [address] ABHIJIT Zimmerman [address] PCP - General Family Medicine 09/01/17 Dirk DENNISON 08/13/24
--- OUTSIDE RECORDS SUMMARY | 2025-06-22 10:07 | XMS_ITS | Encounter Summary ---
Author Organization [employer] Address [address] [place] [address] [address] [place] [address] Care Team Providers Care Manager Mobility Name Role Phone Juany Rodriguez MD Primary Care Provider [phone] Reason for Visit * Reason Comments Med Refill Encounter Details Date Type Department Care Team ([facility] st Contact Info) Description 08/11/2024 Refill [facility] [address] [place], [place] [address] Juany Rodriguez MD [address] [place], [place] [phone] Other chronic gastritis without hemorrhage Social History [...] hemorrhage documented in this encounter Care Teams Manager Mobility Relationship Specialty Start Date End Date Juany Rodriguez MD [address] [place] [address] PCP - General Family Medicine 09/01/17 Dirk DENNISON 08/13/24 documented as of this encounter
--- OUTSIDE RECORDS SUMMARY | 2025-06-22 10:07 | XMS_ITS | Encounter Summary ---
Author Organization [employer] Address [address] [place] [address] 7 [place] [address] Care Team Providers Care Signal Maintainer Name Role Phone Juany Rodriguez MD Primary Care Provider [phone] Encounter Details Date Type Department Care Team ([facility] Contact Info) Description 07/12/2024 Orders Only [facility] [address] [facility] ABHIJIT Zimmerman [phone] Juany Rodriguez MD [address] [place], [place] [phone] Social History Tobacco Use Types Packs/Day Years [...] on filedocumented in this encounter Care Teams Signal Maintainer Relationship Specialty Start Date End Date Juany Rodriguez MD [address] [place] [address] PCP - General Family Medicine 09/01/17 Dirk DENNISON 08/13/24 documented as of this encounter
--- OUTSIDE RECORDS SUMMARY | 2025-06-22 10:07 | XMS_ITS | Encounter Summary ---
Author Organization [employer] Address [address] [place] [address] [address] [place] [address] Care Team Providers Care Storm Window Installer Name Role Phone Juany Rodriguez MD Primary Care Provider [phone] Encounter Details Date Type Department Care Team ([facility] st Contact Info) Description 03/27/2023 Orders Only [facility] [address] [facility] [id number] Juany Rodriguez MD [address] [place], [place] [phone] Social History Tobacco Use Types Packs/Day Years [...] on filedocumented in this encounter Care Teams Storm Window Installer Relationship Specialty Start Date End Date Juany Rodriguez MD [address] [place] [address] PCP - General Family Medicine 09/01/17 Dirk DENNISON 08/13/24 documented as of this encounter
--- OUTSIDE RECORDS SUMMARY | 2025-06-22 10:07 | XMS_ITS | Encounter Summary ---
Author Organization [employer] Address 75 [facility] 7 [place] [address] Care Team Providers Care Ccnp Name Role Phone Juany Rodriguez MD Primary Care Provider [phone] Reason for Visit * Reason Onset Date Comments Appointment Request 09/09/2024 Encounter Details Date Type Department Care Team (Late st Contact Info) Description 09/09/2024 Telephone [facility] MEDICINE [address] [place] [address] Juany Rodriguez MD 505 [facility] [place] [id number] Appointment Request Social History Tobacco Use Types [...] from PCP to consult pt availability, callback [phone] documented in this encounter Plan of Treatment Not on file documented as of this encounter Visit Diagnoses Not on filedocumented in this encounter Care Teams Ccnp Relationship Specialty Start Date End Date Juany Rodriguez MD 505 [place] [address] PCP - General Family Medicine 09/01/17 Dirk DENNISON 08/13/24 documented as of this encounter
--- OUTSIDE RECORDS SUMMARY | 2025-06-22 10:07 | XMS_ITS | Encounter Summary ---
Author Organization [employer] Address [address] [place] [address] 7 [place] [address] Care Team Providers Care Insurance Agents Supervisor Name Role Phone Juany Rodriguez MD Primary Care Provider [phone] Encounter Details Date Type Department Care Team (Late st Contact Info) Description 02/02/2025 Orders Only [facility] [address] [place] [address] Provider, MD Tanvir Social History Tobacco Use Types Packs/Day Years [...] on file documented as of this encounter Procedures Procedure Name Priority Date/Time Associated Diagnosis Comments ECG 12-LEAD Routine 02/01/2025 10:51 AM EDT documented in this encounter Results * ECG 12 lead (02/01/2025 10:51 AM EDT) us Historical Provider ECG ORDERABLES Final Res ult documented in this encounter Visit Diagnoses Not on filedocumented in this encounter Additional Health Concerns Assessment Noted Time PHQ-9 Depression Total Score: 8 12/01/19 25 11:36 AM EDT documented as of this encounter Care Teams Insurance Agents Supervisor Relationship Specialty Start Date End Date Juany Rodriguez MD 505 [place] [address] PCP - General Family Medicine 09/01/17 Dirk DENNISON 08/13/24 documented as of this encounter
--- OUTSIDE RECORDS SUMMARY | 2025-06-22 10:07 | XMS_ITS | Encounter Summary ---
Author Organization [employer] Address [address] [facility] 7 [place] [address] Care Team Providers Care Psychosocial Rehabilitation Counselor Name Role Phone Juany Rodriguez MD Primary Care Provider [phone] Reason for Visit * Reason Onset Date Comments Appointment Request 07/06/2024 Encounter Details Date Type Department Care Team (Late st Contact Info) Description 07/06/2024 Telephone [facility] MEDICINE 230 [place] [address] Juany Rodriguez MD 505 [facility] [place] [id number] Appointment Request Social History Tobacco Use Types [...] 07/06/2024 3:20 PM EDT Triage call with [employer] court interpreter jaimie Carrasco. Pt daughter had called requesting rescheduled apt . Pt had loose stools and wasn't able to leave house. New apt scheduled for 07/09/24 @ 845am with Dr. Clifford. Alina bilateral pedal edema/hand swelling. [facility] was offered for today but, declined. * Telephone Encounter - Tc oJhnson - 07/06/2024 2:45 PM EDT Tc from Daughter stating pt was unable to make it to today's visit and is requesting to reschedule. documented in this encounter Plan of Treatment Not on file documented as of this encounter Visit Diagnoses Not on filedocumented in this encounter Care Teams Psychosocial Rehabilitation Counselor Relationship Specialty Start Date End Date Juany Rodriguez MD [address] [place] [address] PCP - General Family Medicine 09/01/17 Dirk DENNISON 08/13/24 documented as of this encounter
--- OUTSIDE RECORDS SUMMARY | 2025-06-22 10:07 | XMS_ITS | Encounter Summary ---
Author Organization [employer] Address [address] [place] [address] 7 [place] [address] Care Team Providers Care Sales Management Trainee Name Role Phone Juany Rodriguez MD Primary Care Provider [phone] Reason for Visit * Reason Onset Date Comments Paperwork/Forms 07/08/2023 Encounter Details Date Type Department Care Team (Late st Contact Info) Description 07/08/2023 Telephone [facility] 230 [place] [address] Juany Rodriguez MD 505 [place] [address] Paperwork/Forms Social History Tobacco Use Types Packs/Day [...] - 07/08/2023 3:25 PM EDT Tc from [facility] stated pt need a PA for medication sildenafil (Revatio) 20 MG tablet. Pt has no meds left. PCP DR. Rodriguez documented in this encounter Plan of Treatment Not on file documented as of this encounter Visit Diagnoses Not on filedocumented in this encounter Care Teams Sales Management Trainee Relationship Specialty Start Date End Date Juany Rodriguez MD [address] [place] [address] PCP - General Family Medicine 09/01/17 Dirk DENNISON 08/13/24 documented as of this encounter
--- OUTSIDE RECORDS SUMMARY | 2025-06-22 10:07 | XMS_ITS | Encounter Summary ---
Author Organization [employer] Address [address] [place] [address] 7 [place] [address] Care Team Providers Care Resolution Expert Name Role Phone Juany Rodriguez MD Primary Care Provider [phone] Reason for Visit * Reason Comments Med Refill Encounter Details Date Type Department Care Team (Late st Contact Info) Description 02/03/2023 Refill [facility] MED & PEDS [address] [facility] [place] [address] Juany Rodriguez MD 505 [place], [place] [phone] Severe pulmonary hypertension (CMS/HCC) Social History Tobacco [...] (HCC) documented in this encounter Care Teams Resolution Expert Relationship Specialty Start Date End Date Juany Rodriguez MD [address] [place], [place] [phone] PCP - General Family Medicine 12/11/17 Dirk DENNISON 08/13/24 documented as of this encounter
--- OUTSIDE RECORDS SUMMARY | 2025-06-22 10:07 | XMS_ITS | Encounter Summary ---
Author Organization [employer] Address 75 [facility] 7 [place] [address] Care Team Providers Care Brewery Technician Name Role Phone Juany Rodriguez MD Primary Care Provider [phone] Reason for Visit * Reason Onset Date Comments Nurse Triage 03/18/2023 Encounter Details Date Type Department Care Team (Late st Contact Info) Description 03/18/2023 Telephone [facility] MEDICINE [address] [place] [address] Juany Rodriguez MD 505 [facility] [place] [phone] Nurse Triage Social History Tobacco Use Types [...] 12:56 PM EDT Called pt daughter via [employer] deaf interpreter [phone] [place]. No answer. Management Specialist left message on pt. Voicemail to call back [facility] nurses at [phone]. RE: Asthma attack. Called alternate number and [...] acuity questions The caller accepted this outcome HEMAL GIBBS documented in this encounter Plan of Treatment Not on file documented as of this encounter Visit Diagnoses Diagnosis Severe pulmonary hypertension (CMS/HCC) (HCC) documented in this encounter Care Teams Brewery Technician Relationship Specialty Start Date End Date Juany Rodriguez MD 505 [place] [address] PCP - General Family Medicine 09/01/17 Dirk DENNISON 08/13/24 documented as of this encounter
--- OUTSIDE RECORDS SUMMARY | 2025-06-22 10:07 | XMS_ITS | Clinical Summary ---
Author Organization [facility] Address [address] [place] [address] Care Team Providers Care Functional Tester Typewriters Name Role Phone Unavailable Primary Care Provider [...] (two) times a day. 0 12/19/2022 Active [place]-3 Fatty Acids (Fish Oil) 1000 MG CAPS [...]
--- OUTSIDE RECORDS SUMMARY | 2025-06-22 10:07 | XMS_ITS | Encounter Summary ---
Author Organization [employer] Address [address] [place] [address] 7 [place] [address] Care Team Providers Care Showroom Sales Consultant Name Role Phone Juany Rodriguez MD Primary Care Provider [phone] Encounter Details Date Type Department Care Team (Latest Contact Info) Description 05/07/2022 Abstract [facility] Dental, Provider, DDS Social History [...] on filedocumented in this encounter Care Teams Showroom Sales Consultant Relationship Specialty Start Date End Date Juany Rodriguez MD 505 [facility] [place] [address] PCP - General Family Medicine 09/01/17 Dirk DENNISON 08/13/24 documented as of this encounter
--- OUTSIDE RECORDS SUMMARY | 2025-06-22 10:07 | XMS_ITS | Encounter Summary ---
Author Organization [employer] Address [address] [place] [address] [place] [address] Care Team Providers Care Artificial Candy Maker Name Role Phone Juany Rodriguez MD Primary Care Provider [phone] Encounter Details Date Type Department Care Team (Late st Contact Info) Description 10/16/2023 Abstract [employer] [facility] [address] [place], [place] [phone] Juany Rodriguez MD 505 [place], [place] [phone] Social History Tobacco Use Types Packs/Day Years [...] on filedocumented in this encounter Care Teams Artificial Candy Maker Relationship Specialty Start Date End Date Juany Rodriguez MD 505 [place], [place] [phone] PCP - General Family Medicine 09/01/17 Dirk Joao 08/13/24 documented as of this encounter
== END 2025-06-21 09:21 | disposition home or self-care (01) ==
LOC: HO.HOSX 09:20
PROVIDERS: Visit Provider Physician Assistant
DX: Z13.89 Encounter for screening for other disorder (principal)

== ENCOUNTER → 2025-06-22 23:59 | Outpatient (BNV) | payer OTHER, SELFPAY | PROVIDERS: Visit Provider Internal Medicine Hypertension Specialist | DX: N18.6 End stage renal disease (principal) | CPT/HCPCS: 90961 ==

== ENCOUNTER → 2025-07-23 23:59 | Outpatient (BNV) | payer OTHER, SELFPAY | PROVIDERS: PCP Pediatrics; Visit Provider Internal Medicine Hypertension Specialist | DX: N18.6 End stage renal disease (principal) | CPT/HCPCS: 90962 ==

== ENCOUNTER 2025-07-26 15:23 | Outpatient (AMB) | payer OTHER, SELFPAY ==
[2025-07-26 15:25] VITALS: BP 90/50; PULSE 70; O2SAT 98; BMI 37.2
--- NOTE | 2025-07-26 15:25 | MHC.OFFVIS ---
Vital Signs 07/26/25 15:25 Height 5 ft Weight 190 lb 11.198 oz BMI 37.2 BP 90/50 L Blood Pressure Location Rt brachial Position Sitting Pulse 70 Pulse Source Pulse Oximeter Pulse Oximetry (%) 98 Oxygen Delivery Method Room Air Intake Visit Reasons: ANKIT/Sinusitis Hr Manager Required: Yes Hr Manager Services: Hr Manager Offered & Declined Hr Manager Name: MD speaks danish Accompanied by: Daughter Allergies faviola (FAVIOLA) Adverse Reaction (Intermediate, Verified 07/26/25 15:29) NAUSEA & VOMITING Penicillins (PENICILLINS) Adverse Reaction (Unknown, Verified 07/26/25 15:29) NAUSEA & VOMITING YUCA Allergy (Unknown, Uncoded 03/14/25 12:13) NAUSEA & VOMITING SARDINES Adverse Reaction (Intermediate, Uncoded 03/14/25 12:13) NAUSEA & VOMITING HPI Comments Details: The patient is a 79-year-old woman with a known history of cardiomyopathy and diastolic dysfunction. She continues to have significant shortness of breath. Moderate to severe. Today she did come in with her daughter but we did have to get her wheelchair to go back to the car because her shortness of breath. The patient also feels very fatigued. She has daytime drowsiness and sleeps throughout the day. She typically sleeps on the sofa because she feels she is more comfortable when she is has not choked up so much. Her Rule score is elevated 16/24. The patient has not had a sleep study. Will have to request a home sleep study at this time. In the meantime the patient had an echocardiogram and I did review the family. It appears that she has a severely dilated right ventricle and severe pulmonary hypertension. In part this is likely due to her diastolic dysfunction. However, additional testing is warranted. Will go ahead and request blood work in addition to a V/Q scan to rule out thromboembolic disease and also a sleep study. the patient does take Eliquis for anticoagulation. However, chronic thromboembolic disease is still in differential. 08/08/2023 the patient is here for a pulmonary follow-up visit. The patient is very groggy this morning. Her daughter's states that she is been sleeping a lot during the daytime. The patient feels tired right now. She has been using her respiratory medications. In addition to that she has been using her positive airway pressure therapy. She is reluctant to use it but her daughter helps her with the and she does use it for more than 4 hours a night. She continues with diuresis. Will go ahead and request additional blood work in addition to a blood gas to assess her CO2 to make sure that she is not developing hypercapnia. 02/09/2024 the patient is here for a pulmonary follow-up visit. She is complaining of significant sinus congestion and nasal congestion. She has a hard time using her CPAP because of the significant sinus and nasal passage obstruction. She has been sick now for about 3 days. The patient also has been having significant allergies. She has been taking allergy medications [id number]. She also has diabetes so therefore prednisone it is difficult for her to tolerate. I did provide her with a different mask see if she did tolerate the CPAP a little better once her nasal congestion this better, N30i small. Hopefully she tolerates this better. In addition to that patient be using the Afrin nasal spray. She will picked edge sewing machine operator some in the pharmacy. She can also start doxycycline to treat her for sinusitis. 01/25/2025 the patient is here for a pulmonary follow-up visit. The patient has been weak and also short of breath. She has multiple comorbidities though. She has not been using her CPAP. The patient does have significant shortness of breath even with minimal activity. She does have a walker that she uses. During the visit we did go for walking oximetry the patient did not desaturate. Pulse ox actually 97%. Although she was visibly dyspneic 03/31. This was with minimal activity. Will go ahead and request an overnight oximetry on room air to see if she is a candidate for oxygen at nighttime. Her now she did start dialysis in that looks like she is going to get a graft or fistula placement on the right upper extremity for her further dialysis treatments. The patient does have some wheezing. She is on Trelegy 100. Will go ahead and increase that to the 200. She also continue with her albuterol as needed. She has been on the sildenafil for the pulmonary hypertension. Will go ahead and request an echocardiogram as well. Will follow-up in 4-6 months if she has any issues prior to that she will call for an earlier assessment. 07/26/2025 the patient is here for pulmonary follow-up visit. She did start dialysis. She is tolerating it okay although she gets very tired and weak. She continues on the sildenafil. Echocardiogram still demonstrating some pulmonary hypertension, moderate. She continues with the Trelegy inhaler. We had increased her dose last time she seems to be tolerating that okay. Breathing seems to be stable. Her biggest issue is that she had a fall and hurt her back. Her lower back is extremely uncomfortable. Will have her get some x-rays of the lumbar back in order to rule out a compression fracture. The patient can put a Lidoderm patch to the affected area. She continues with Tylenol. Unfortunately she can not use any NSAIDs and she can not use any opiates because of her comorbidities. If her symptoms worsen she would have to go to the ER. But for now she will have her x-rays and I will let her know what the results are. The patient will continue with the current respiratory regimen and she will follow-up in 6 months if she has any issues prior to that she can always call for an earlier assessment and recommendations. [facility] Medical History (Updated 07/26/25 @ 19:30 by Alexandre Johnson MD) Fall ESRD on dialysis Renal failure Chronic kidney disease Shortness of breath Chest discomfort Exocrine pancreatic insufficiency ANKIT (obstructive sleep apnea) Asthma Pulmonary hypertension Vasovagal syncope Type 2 diabetes mellitus with unspecified complications Essential hypertension PAF (paroxysmal atrial fibrillation) Cardiomyopathy Surgical History No pertinent past surgical history Family History Father No problems noted. Mother No problems noted. Social History Household Members: Children Housing: Apartment Do you presently have visiting nurse or other home services: Yes (ARCHITECTURE TECHNICIAN) Alcohol intake: never Patient Tobacco Use Status: Never used Tobacco service: No Review of Systems Const Denies chills, Reports daytime sleepiness, Reports fatigue, Denies fever(s), Reports weakness and Reports weight gain ENT Denies dizziness Card Denies chest pain, Denies leg edema, Denies lightheadedness, Denies palpitations, Denies dyspnea, Reports dyspnea on exertion, Denies orthopnea and Denies other Resp Reports cough, Denies dyspnea, Reports dyspnea on exertion and Denies wheezing GI Denies hematochezia and Denies change in stool character Reports as per HPI Musc Reports abnormal gait, Reports back pain, Reports myalgias, Reports atrophy, Reports muscle cramps, Reports muscle weakness, Denies numbness, Denies radiating pain into limb and Denies tingling Neuro Reports abnormal gait, Denies dizziness, Denies numbness, Denies tingling and Reports weakness Endo Reports fatigue and Denies palpitations Gilberto/Lymph Denies lymphadenopathy Aller/Immun Denies wheezing Physical Exam Vital Signs: Last Vital Signs Pulse 70 07/26/25 15:25 BP 90/50 L 07/26/25 15:25 Pulse Ox 98 07/26/25 15:25 Oxygen Delivery Method Room Air 07/26/25 15:25 BMI result Body Mass Index 37.2 Const General: comfortable and tired appearing Orientation/consciousness: patient oriented x3 HEENT Other: Unremarkable Head: Yes normal to inspection Eyes General: appearance normal, both eyes and all related structures Neck Neck: Yes normal visual inspection Chest Chest palpation & inspection: normal inspection of the chest Resp Effort & Inspection: normal respiratory effort Auscultation: no crackles, no wheezes and diminished lung sounds Cardio Jugular venous distension: no JVD Palpation: normal PMI Heart sounds: S1 normal heart sound present, S2 normal heart sound present, no gallops, no murmurs and no rubs GI Palpation (GI): Soft to palpation Back/Spine/Pelvis Other: unremarkable Thoracic/Lumbar Spine: paraspinal muscle tenderness and lumbar spinal tenderness Skin General skin exam: no rashes or lesions noted Neuro General: patient oriented x3 Extrem General: Yes no clubbing, cyanosis or edema Psych Mental Status: mental status grossly normal Assessment & Plan Assessment & Plan (1) Pulmonary hypertension: Code(s): I27.20 - Pulmonary hypertension, unspecified Category: Medical (2) ANKIT (obstructive sleep apnea): Code(s): G47.33 - Obstructive sleep apnea (adult) (pediatric) Category: Medical (3) Asthma: Code(s): J45.909 - Unspecified asthma, uncomplicated Category: Medical Qualifiers: Asthma complication type: uncomplicated Asthma persistence: persistent Asthma severity: moderate Qualified Code(s): J45.40 - Moderate persistent asthma, uncomplicated (4) Shortness of breath: Code(s): R06.02 - Shortness of breath Category: Medical (5) Chronic diastolic (congestive) heart failure: Code(s): I50.32 - Chronic diastolic (congestive) heart failure Category: Medical (6) Fall: Code(s): W19.XXXA - Unspecified fall, initial encounter Category: Medical Qualifiers: Encounter type: initial encounter Qualified Code(s): W19.XXXA - Unspecified fall, initial encounter Plan continue APAP, trial N30i mask continue Sildanefil continue diuresis as tolerated Trelegy 200mcg inhalation daily Overnight oximetry on RA lumbar xr lidoderm follow-up in 6 months Orders: Orders XR lumbar spine 4V min Today W19.XXXA - Unspecified fall, initial encounter Medications: New lidocaine 5% (Lidoderm) leave on most painful area for up to 12 hrs 1 patch topical DAILY 30 ea 4RF 30 days G89.12 - Acute post-thoracotomy pain Coding Level of Care Code Est Pt Level 4 (25690) Complex EM visit Add On G2211 Diagnoses Pulmonary hypertension I27.20 ANKIT (obstructive sleep apnea) G47.33 Moderate persistent asthma without complication J45.40 Asthma complication type: uncomplicated Asthma persistence: persistent Asthma severity: moderate Shortness of breath R06.02 Chronic diastolic (congestive) heart failure I50.32 Fall, initial encounter W19.XXXA Encounter type: initial encounter Time Spent (min) 17
--- OUTSIDE RECORDS SUMMARY | 2025-07-26 18:11 | XMS_ITS | Encounter Summary ---
Author Organization [employer] Address [address] [place] [address] [place] [address] Care Team Providers Care People Manager Name Role Phone Juany Rodriguez MD Primary Care Provider Encounter Details Date Type Department Care Team (Late st Contact Info) Description 10/16/2023 Abstract [employer] [facility] [address] [place], [place] [phone] Juany Rodriguez MD 505 [place], [place] [phone] Social History Tobacco Use Types Packs/Day Years [...] on filedocumented in this encounter Care Teams People Manager Relationship Specialty Start Date End Date Juany Rodriguez MD 505 [place], [place] [phone] PCP - General Family Medicine 09/01/17 Dirk Joao 08/13/24 documented as of this encounter
--- OUTSIDE RECORDS SUMMARY | 2025-07-26 18:11 | XMS_ITS | Encounter Summary ---
Author Organization [employer] Address [address] [place] [address] 7 [place] [address] Care Team Providers Care Dance Director Name Role Phone Juany Rodriguez MD Primary Care Provider [phone] Encounter Details Date Type Department Care Team ([facility] st Contact Info) Description 03/27/2023 Orders Only [facility] CHC MED & PEDS 505 [facility] [place] [address] Juany Rodriguez MD 505 [place], [place] [phone] Social History Tobacco Use Types Packs/Day Years [...] on filedocumented in this encounter Care Teams Dance Director Relationship Specialty Start Date End Date Juany Rodriguez MD [address] [place] [address] PCP - General Family Medicine 09/01/17 Dirk DENNISON 08/13/24 documented as of this encounter
--- OUTSIDE RECORDS SUMMARY | 2025-07-26 18:11 | XMS_ITS | Encounter Summary ---
Author Organization [employer] Address 75 [facility] 7t [place] [address] Care Team Providers Care Felled Seam Operator Name Role Phone Juany Rodriguez MD Primary Care Provider [phone] Encounter Details Date Type Department Care Team (Late st Contact Info) Description 05/14/2024 Orders Only [facility] [address] [place] [address] Rashmi Marquez MD 505 [facility] [place] [phone] Type 2 diabetes mellitus with hyperglycemia, with long-term current use of insulin ([facility]) (Primary Dx) Social History Tobacco Use Types [...] Primary documented in this encounter Care Teams Felled Seam Operator Relationship Specialty Start Date End Date Juany Rodriguez MD [address] [place] [address] PCP - General Family Medicine 09/01/17 Dirk DENNISON 08/13/24 documented as of this encounter
--- OUTSIDE RECORDS SUMMARY | 2025-07-26 18:11 | XMS_ITS | Encounter Summary ---
Author Organization [employer] Address [address] [place] [address] 7 [place] [address] Care Team Providers Care Acid Wash Operator Name Role Phone Juany Rodriguez MD Primary Care Provider [phone] Reason for Visit * Reason Comments Med Refill Encounter Details Date Type Department Care Team ([facility] st Contact Info) Description 03/18/2023 Refill [facility] CHC MED & PEDS [address] [place], [place] [phone] Juany Rodriguez MD 505 [place], [place] [phone] Severe pulmonary hypertension (CMS/HCC) Social History Tobacco [...] (HCC) documented in this encounter Care Teams Acid Wash Operator Relationship Specialty Start Date End Date Juany Rodriguez MD [address] [place] [address] PCP - General Family Medicine 09/01/17 Dirk DENNISON 08/13/24 documented as of this encounter
--- OUTSIDE RECORDS SUMMARY | 2025-07-26 18:11 | XMS_ITS | Encounter Summary ---
Author Organization [employer] Address [address] [facility] 7 [place] [address] Care Team Providers Care Hardwood Floor Sander Name Role Phone Juany Rodriguez MD Primary Care Provider [phone] Reason for Visit * Reason Onset Date Comments Appointment Request 09/09/2024 Encounter Details Date Type Department Care Team (Late st Contact Info) Description 09/09/2024 Telephone [facility] MEDICINE [address] [place] [address] Juany Rodriguez MD 505 [facility] [place] [phone] Appointment Request Social History Tobacco Use Types [...] from PCP to consult pt availability, callback [phone] documented in this encounter Plan of Treatment Not on file documented as of this encounter Visit Diagnoses Not on filedocumented in this encounter Care Teams Hardwood Floor Sander Relationship Specialty Start Date End Date Juany Rodriguez MD 505 [place] [address] PCP - General Family Medicine 09/01/17 Dirk DENNISON 08/13/24 documented as of this encounter
--- OUTSIDE RECORDS SUMMARY | 2025-07-26 18:11 | XMS_ITS | Encounter Summary ---
Author Organization [employer] Address [address] [place] [address] 7 [place] [address] Care Team Providers Care Hydraulic Lift Driver Name Role Phone Juany Rodriguez MD Primary Care Provider [phone] Reason for Visit * Reason Comments Med Refill Encounter Details Date Type Department Care Team (Late st Contact Info) Description 02/03/2023 Refill [facility] MED & PEDS 505 [facility] [place] [address] Juany Rodriguez MD [address] [place], [place] [phone] Severe pulmonary hypertension (CMS/HCC) Social History Tobacco [...] (HCC) documented in this encounter Care Teams Hydraulic Lift Driver Relationship Specialty Start Date End Date Juany Rodriguez MD [address] [place], [place] [phone] PCP - General Family Medicine 12/11/17 Dirk DENNISON 08/13/24 documented as of this encounter
--- OUTSIDE RECORDS SUMMARY | 2025-07-26 18:11 | XMS_ITS | Clinical Summary ---
Author Organization [facility] Address [address] [place] [address] Care Team Providers Care Caregiver Assisted Living Name Role Phone Unavailable Primary Care Provider [...] (two) times a day. 0 12/19/2022 Active [place]-3 Fatty Acids (Fish Oil) 1000 MG CAPS [...]
--- OUTSIDE RECORDS SUMMARY | 2025-07-26 18:11 | XMS_ITS | Encounter Summary ---
Author Organization [employer] Address [address] [facility] 7 [place] [address] Care Team Providers Care Repairer Handtools Name Role Phone Juany Rodriguez MD Primary Care Provider [phone] Reason for Visit * Reason Onset Date Comments Med Refill 05/16/2025 Encounter Details Date Type Department Care Team (Late st Contact Info) Description 05/16/2025 Telephone [facility] MEDICINE [address] [place] [address] Juany Rodriguez MD 505 [facility] [place] [phone] Med Refill Social History Tobacco Use Types [...] day supply of Vitamin D sent to [facility] on 04/05/25. Creon not prescribed by PCP (GI). Other medication pended to PCP. * Telephone Encounter - Tc Johnson - 05/16/2025 9:23 AM EDT TC from pt requesting medication refill. Medications needing refill: metoprolol tartrate (Lopressor) 50 MG tablet cholecalciferol VITAMIN D (Vitamin D-3) 50 MCG (1999 UT) capsule Creon 14662-122792 units capsule delayed-release particles capsule To be sent to: [facility] - ABHIJIT Zimmerman - [address] [place] [address] St documented in this encounter Plan of Treatment Not on file documented as of this encounter Visit Diagnoses Not on filedocumented in this encounter Additional Health Concerns Assessment Noted Time PHQ-9 Depression Total Score: 8 12/01/19 25 11:36 AM EDT documented as of this encounter Care Teams Repairer Handtools Relationship Specialty Start Date End Date Juany Rodriguez MD [address] [place] [address] PCP - General Family Medicine 09/01/17 Dirk DENNISON 08/13/24 documented as of this encounter
--- OUTSIDE RECORDS SUMMARY | 2025-07-26 18:11 | XMS_ITS | Encounter Summary ---
Author Organization [employer] Address 75 [facility] 7 [place] [address] Care Team Providers Care Drafter Tool Design Name Role Phone Juany Rodriguez MD Primary Care Provider [phone] Reason for Visit * Reason Onset Date Comments Med Refill 12/03/2024 Encounter Details Date Type Department Care Team (Late st Contact Info) Description 12/03/2024 Telephone [facility] MEDICINE [address] [place] [address] Juany Rodriguez MD [address] [facility] [place] [phone] Med Refill Social History Tobacco Use Types [...] 50 MG tablet To be sent to: [facility] - [place] - 505 [facility] documented in this encounter Plan of Treatment Not on file documented as of this encounter Visit Diagnoses Not on filedocumented in this encounter Additional Health Concerns Assessment Noted Time PHQ-9 Depression Total Score: 8 12/01/19 25 11:36 AM EDT documented as of this encounter Care Teams Drafter Tool Design Relationship Specialty Start Date End Date Juany Rodriguez MD 505 [place] [address] PCP - General Family Medicine 09/01/17 Dirk DENNISON 08/13/24 documented as of this encounter
--- OUTSIDE RECORDS SUMMARY | 2025-07-26 18:11 | XMS_ITS | Encounter Summary ---
Author Organization [employer] Address 75 [facility] 7t [place] [address] Care Team Providers Care Wildlife Veterinarian Name Role Phone Juany Rodriguez MD Primary Care Provider [phone] Reason for Visit * Reason Comments Med Refill Encounter Details Date Type Department Care Team ([facility] st Contact Info) Description 08/11/2024 Refill [facility] CHC MED & PEDS [address] [place], [place] [phone] Araceli Clifford MD [address] [place], [place] [phone] Social History Tobacco Use Types Packs/Day Years [...] on filedocumented in this encounter Care Teams Wildlife Veterinarian Relationship Specialty Start Date End Date Juany Rodriguez MD 505 [place] [address] PCP - General Family Medicine 09/01/17 Dirk DENNISON 08/13/24 documented as of this encounter
--- OUTSIDE RECORDS SUMMARY | 2025-07-26 18:11 | XMS_ITS | Encounter Summary ---
Author Organization [employer] Address [address] [place] [address] 7 [place] [address] Care Team Providers Care Vehicle Refinisher Name Role Phone Juany Rodriguez MD Primary Care Provider [phone] Encounter Details Date Type Department Care Team (Latest Contact Info) Description 05/07/2022 Abstract [facility] CONVERSIONS Dental, Provider, DDS Social History [...] on filedocumented in this encounter Care Teams Vehicle Refinisher Relationship Specialty Start Date End Date Juany Rodriguez MD 505 [facility] [place] [address] PCP - General Family Medicine 09/01/17 Dirk DENNISON 08/13/24 documented as of this encounter
--- OUTSIDE RECORDS SUMMARY | 2025-07-26 18:11 | XMS_ITS | Clinical Summary ---
Author Organization [facility] [address] [facility] Address [address] [place] [address] Phone Care Team Providers Care Compensator Name Role Phone Juany Rodriguez MD Primary Care Provider [phone] Allergies Active Allergy Reactions Criticality Noted Date [...] renal disease) ([facility] V24, [facility] V28) 01/25/2025 Surgical History Surgery Date Site/Laterality [...] this topic Medical Devices Implanted Type Area Traffic Personnel Supervisor Device Identifier Shelf Expiration Date Model / Serial / Lot Hemostat Absorb Surgicel Nu-Knit 3x4in - Sn/A - [id number] Implanted:Qty: 1 on 02/01/2025 by Anshul Matthews MD at [facility] Hemostasis Left: Arm [employer] 08/21/2029 [id number] / N/A / [id number] Procedures Procedure Name Priority Date/Time Associated Diagnosis Comments BASIC METABOLIC PANEL Routine 02/01/2025 8:47 AM EDT from Last 3 Months or Most Recently Relevant to Health Maintenance Results * (ABNORMAL) Basic metabolic panel (02/01/2025 8:47 AM EDT) Sodium 138 133 - 145 mmol/L LAB CHEMISTRY METHOD 02/01/2025 10:10 AM [facility] Potassium 4.4 3.5 - 5.5 mmol/L LAB CHEMISTRY METHOD 02/01/2025 10:10 AM [facility] Chloride 101 96 - 110 mmol/L LAB CHEMISTRY METHOD 02/01/2025 10:10 AM [facility] CO2 31 21 - 32 mmol/L LAB CHEMISTRY METHOD 02/01/2025 10:10 AM [facility] Anion Gap 6 3 - 11 LAB CHEMISTRY METHOD 02/01/2025 10:10 AM [facility] Glucose 146(H) 70 - 100 mg/dL LAB CHEMISTRY METHOD 02/01/2025 10:10 AM [facility] BUN 55(H) 5 - 25 mg/dL LAB CHEMISTRY METHOD 02/01/2025 10:10 AM [facility] Creatinine 4.56(H) 0.50 - 1.10 mg/dL LAB CHEMISTRY METHOD 02/01/2025 10:10 AM EDT [facility] eGFR 9(L) >=60 mL/min/1. 73m2 LAB CHEMISTRY METHOD 02/01/2025 10:10 AM EDT [facility] Comment:Calculation based on the Chronic Kidney Disease Epidemiology Collaboration (CKD-EPI) equation refit without adjustment for race. BUN/Creatinine Ratio 12.1 LAB CHEMISTRY METHOD 02/01/2025 10:10 AM EDT [facility] Calcium 8.7 8.5 - 10.5 mg/dL LAB CHEMISTRY METHOD 02/01/2025 10:10 AM EDT [facility] Blood Venous blood specimen / Unknown Venipuncture / Unknown 02/01/2025 8:47 AM EDT 02/01/2025 9:36 AM EDT us Anshul Matthews MD LAB BLOOD ORDERABLES Final Result [facility] [address] [place] [address], [place] [phone] from Last 3 Months or Most Recently Relevant to Health Maintenance [place] [address] [place] [address] MEDICARE Member Subscriber Plan / Payer (Ef fective 2017-Present) Name:Belen Lemus Relation to Subscriber:Self Name:Belen Lemus Payer ID:[id number] Group ID:[id number] Type:Not on file Address: [place] [address] [place] [id number] Advance Directives Documents on File Type Date Recorded 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
--- OUTSIDE RECORDS SUMMARY | 2025-07-26 18:11 | XMS_ITS | Encounter Summary ---
Author Organization [employer] Address [address] [facility] 7 [place] [address] Care Team Providers Care Mine Motor Engineer Name Role Phone Juany Rodriguez MD Primary Care Provider [phone] Reason for Visit * Reason Onset Date Comments Appointment Request 07/06/2024 Encounter Details Date Type Department Care Team (Late st Contact Info) Description 07/06/2024 Telephone [facility] MEDICINE [address] [place] [address] Juany Rodriguez MD 505 [facility] [place] [phone] Appointment Request Social History Tobacco Use Types [...] 07/06/2024 3:20 PM EDT Triage call with [employer] cushion filler jaimie Carrasco. Pt daughter had called requesting rescheduled apt . Pt had loose stools and wasn't able to leave house. New apt scheduled for 07/09/24 @ 845am with Dr. Clifford. Alina bilateral pedal edema/hand swelling. [facility] was offered for today but, declined. * Telephone Encounter - Tc Johnson - 07/06/2024 2:45 PM EDT Tc from Daughter stating pt was unable to make it to today's visit and is requesting to reschedule. documented in this encounter Plan of Treatment Not on file documented as of this encounter Visit Diagnoses Not on filedocumented in this encounter Care Teams Mine Motor Engineer Relationship Specialty Start Date End Date Juany Rodriguez MD [address] [place] [address] PCP - General Family Medicine 09/01/17 Dirk DENNISON 08/13/24 documented as of this encounter
--- OUTSIDE RECORDS SUMMARY | 2025-07-26 18:11 | XMS_ITS | Clinical Summary ---
Author Organization [employer] Address [address] [place] [address] 7t [place] [address] Care Team Providers Care Test Fixture Assembler Name Role Phone Juany Rodriguez MD Primary Care Provider [phone] Allergies Active Allergy Reactions Criticality Noted Date [...] use of insulin (HCC),Severe pulmonary hypertension (CMS/HCC) ([facility]) TAKE ONE TABLET AT BEDTIME 90 [...] 0.083% nebulizer solutionIndicati ons:Severe pulmonary hypertension (CMS/HCC) ([facility]) INHALE ONE AMPULE USING A NEBULIZER EVERY [...] Blood Pressure Monitoring (Comfort Touch BP Cuff/Medium) [facility] Needs another BP cuff please to check [...] by mouth Once per day. Active Creon [id number] units capsule delayed-release particles capsule Take 1 [...] complication, without long-term current use of insulin ([facility]) USE TO TEST BLOOD SUGAR FOUR TIMES [...] complication, without long-term current use of insulin ([facility]),Severe pulmonary hypertension (CMS/HCC) ([facility]) TAKE TWO CAPSULES THREE TIMES DAILY 180 capsule 3 Active Witch Stacey (Medi-Pads) 50 % pads APPLY TO THE AFFECTED AREA(S) NEEDED FOR DISCOMFORT 100 each 5 Active SITagliptin (Januvia) 50 MG tablet TAKE ONE TABLET EVERY DAY 30 tablet Active Embecta Pen Needle Ultrafine 31G X 5 MM miscIndications: Type 2 diabetes mellitus without complication, without long-term current use of insulin ([facility]) USE THREE DAILY 100 each 11 Active Alcohol Swabs (Alcohol Prep) 70 % padsIndications: Type 2 diabetes mellitus without complication, without long-term current use of insulin ([facility]) USE THREE DAILY DIRECTED 100 each Active [...] spit 15 ml daily 473 mL Active furosemide (Lasix) 40 MG tabletIndication s:Type 2 diabetes mellitus without complications (HCC),Pulmonary hypertension, unspecified (CMS/HCC) (HCC) TAKE ONE TABLET TWICE DAILY 60 tablet Active furosemide (Lasix) 40 MG tabletIndication s:Type 2 diabetes mellitus without complications (HCC),Pulmonary hypertension, unspecified (CMS/HCC) (HCC) TAKE ONE TABLET TWICE DAILY 60 tablet 025 2024 Discontinued Active Problems Problem Noted Date Diagnosed Date ESRD (end stage renal disease) on dialysis (CMS/ HCC) 06/14/2025 Acute on chronic diastolic (congestive) heart [...] Iron deficiency anemia 12/27/2022 Severe pulmonary hypertension (CMS/HCC) 10/16/19 Primary degenerative dementi a of the [...] 09/06/2019 CKD (chronic kidney disease), stage III (CMS/HCC ) 05/13/2018 Overview (10/16/2022): Update for Diagnosis Load Dyslipidemia 03/04/2018 Benign essential hypertension 08/06/2017 Chronic depression 08/06/2017 Type 2 diabetes mellitus 08/06/2017 Asthma 08/06/2017 Encounters Date Type Department Care Team Description 07/07/2025 Refill [facility] MED & PEDS [address] [place] [address] Juany Rodriguez MD Type 2 diabetes mellitus without complications (HCC); Pulmonary hypertension, unspecified (CMS/HCC) (HCC) 06/14/2025 10:30 AM EDT Office Visit [facility] MED & PEDS [address] [place] [address] Juany Rodriguez MD Benign essential hypertension (Primary Dx); Type 2 diabetes mellitus without complication, without long-term current use of insulin (CMS/[facility]); ESRD (end stage renal disease) on dialysis ([facility]/HCC) 06/14/2025 Telephone [facility] MED & PEDS [address] [place] [address] Juany Rodriguez MD script fax 06/14/2025 Travel 06/06/2025 Telephone [facility] MED & PEDS [address] [place] [address] Juany Rodriguez MD Durable Medical Equipment 06/06/2025 Refill [facility] MED & PEDS [address] [place] [address] Juany Rodriguez MD Type 2 diabetes mellitus without complication, without long-term current use of insulin ([facility]/HCC) 06/04/2025 Refill [facility] [address] [place] [address] Juany Rodriguez MD 06/03/2025 Refill [facility] CHC MED & PEDS [address] [place] [address] Juany Rodriguez MD Type 2 diabetes mellitus without complications (CMS/HCC); Pulmonary hypertension, unspecified (CMS/HCC) 05/21/2025 Refill [facility]C MED & PEDS [address] [place] [address] Juany Rodriguez MD Pain; Type 2 diabetes mellitus without complication, without long-term current use of insulin (CMS/HCC); Severe pulmonary hypertension (CMS/HCC) 05/16/2025 Telephone [facility] MEDICINE [address] [place] [address] Juany Rodriguez MD Med Refill 05/16/2025 Refill [facility] MED & PEDS [address] [place] [address] Juany Rodriguez MD Type 2 diabetes mellitus without complication, without long-term current use of insulin (CMS/HCC) 05/10/2025 Refill [facility] MED & PEDS [address] [place] [address] Juany Rodriguez MD 05/04/2025 Refill [facility] MED & PEDS [address] [place] [address] Juany Rodriguez MD Pain 04/26/2025 Refill [facility] MED & PEDS [address] [place] [address] Quentin Ruelas MD 04/26/2025 Refill [facility] MED & PEDS [address] [place] [address] Juany Rodriguez MD from Last 3 Months Immunizations Immunization Administration [...] complication, without long-term current use of insulin ([facility]) POCT GLUCOSE Routine 06/14/2025 11:16 AM EDT Type 2 diabetes mellitus without complication, without long-term current use of insulin ([facility]) LIPID PANEL, STANDARD Routine 07/28/2024 12:33 [...] (ABNORMAL) POCT Glucose (06/14/2025 11:16 AM EDT) Glucose Blood, POC 254(A) 60 - 200 mg/dL Blood Capillary blood specimen / Unknown 06/14/2025 11:16 AM EDT us Juany Rodriguez MD POINT OF CARE TEST ENTER/EDIT ORDERABLES Final Result * (ABNORMAL) Lipid Panel, Standard (07/28/2024 12:33 PM EST) Triglycerides 52 <150 mg/dL [facility] Comment:Desirable Triglyceri de: less than 150 mg/dLBorderline High Triglyceride 150-199 mg/dLHigh Triglyceride: 200-499 mg/dLVery High Triglyceride: greater than or equal to 5OO mg/dL Cholesterol 177 <200 mg/dL [facility] Comment:Desirable Cholestero l: less than 200 mg/dLBorderline High Cholesterol: 200-239 mg/dLHigh Cholesterol: greater than 239 mg/dL LDL Cholesterol Calculated 115(H) <100 mg/dL [facility] Comment:Desirable LDL: less than 100 mg/dLNear Optimal/Above Optimal LDL: 110- 129 mg/dLBorderline High LDL: 130-159 mg/dLHigh LDL: 160-189 mg/dLVery High LDL: greater than or equal to 190 mg/dL HDL Cholesterol 52 >40 mg/dL [facility] Comment:Desirable HDL: great er than 40 mg/dL Note: This HDL assay may give artificially low results in patients with liver disease. Blood Venous blood specimen / Unknown 07/28/2024 12:33 PM EST 07/28/2024 2:18 PM EST us Juany Rodriguez MD LAB BLOOD ORDERABLES Final Re sult [facility] [address] [place], [place] [phone] from Last 3 Months or Most Recently Relevant to Health Maintenance Insurance [facility] OPT[employer] (O D-SNP) [address] [id number] Advance Directives Documents on File Type Date Recorded Patient Punch Box Tender Expl anation Advance Directives and Livin g Will 09/20/2024 2:37 PM HCP Care Teams Test Fixture Assembler Relationship Specialty Start Date End Date Juany Rodriguez MD [address] [place] [address] [place]IT [place] [address] PCP - General Family Medicine 09/01/17 Dirk DENNISON 08/13/24
--- OUTSIDE RECORDS SUMMARY | 2025-07-26 18:11 | XMS_ITS | Encounter Summary ---
Author Organization [employer] Address [address] [place] [address] 7 [place] [address] Care Team Providers Care International Relations Professor Name Role Phone Juany Rodriguez MD Primary Care Provider [phone] Reason for Visit * Reason Comments Med Refill Encounter Details Date Type Department Care Team ([facility] st Contact Info) Description 01/12/2023 Refill [facility] CH[facility] MED & PEDS [address] [place] [address] Juany Rodriguez MD 505 [place] [address] Pain Social History Tobacco Use Types Packs/Day [...] pain documented in this encounter Care Teams International Relations Professor Relationship Specialty Start Date End Date Juany Rodriguez MD [address] [place] [address] PCP - General Family Medicine 09/01/17 Dirk DENNISON 08/13/24 documented as of this encounter
--- OUTSIDE RECORDS SUMMARY | 2025-07-26 18:11 | XMS_ITS | Encounter Summary ---
Author Organization [employer] Address [address] [place] [address] 7 [place] [address] Care Team Providers Care Sister Superior Name Role Phone Juany Rodriguez MD Primary Care Provider [phone] Reason for Visit * Reason Comments Med Refill Encounter Details Date Type Department Care Team ([facility] st Contact Info) Description 12/28/[address] [facility] MED & PEDS [address] [place], [place] [phone] Juany Rodriguez MD [address] [place], [place] [phone] Type 2 diabetes mellitus without complication, without [...] documented as of this encounter Care Teams Sister Superior Relationship Specialty Start Date End Date Juany Rodriguez MD [address] [place] [address] PCP - General Family Medicine 09/01/17 Dirk DENNISON 08/13/24 documented as of this encounter
--- OUTSIDE RECORDS SUMMARY | 2025-07-26 18:11 | XMS_ITS | Encounter Summary ---
Author Organization [employer] Address [address] [facility] 7 [place] [address] Care Team Providers Care Brilliandeer Looper Name Role Phone Juany Rodriguez MD Primary Care Provider [phone] Reason for Visit * Reason Onset Date Comments Nurse Triage 03/18/2023 Encounter Details Date Type Department Care Team (Late st Contact Info) Description 03/18/2023 Telephone [facility] MEDICINE [address] [place] [address] Juany Rodriguez MD 505 [facility] [place] [phone] Nurse Triage Social History Tobacco Use Types [...] 12:56 PM EDT Called pt daughter via [employer] site damage prevention technician [phone] [place]. No answer. Soft Sugar Supervisor left message on pt. Voicemail to call back [facility] nurses at [phone]. RE: Asthma attack. Called alternate number and [...] (HCC) documented in this encounter Care Teams Brilliandeer Looper Relationship Specialty Start Date End Date Juany Rodriguez MD [address] [place] [address] PCP - General Family Medicine 09/01/17 Dirk DENNISON 08/13/24 documented as of this encounter
--- OUTSIDE RECORDS SUMMARY | 2025-07-26 18:11 | XMS_ITS | Encounter Summary ---
Author Organization [employer] Address [address] [place] [address] 7 [place] [address] Care Team Providers Care Unitizer Name Role Phone Juany Rodriguez MD Primary Care Provider [phone] Reason for Visit * Reason Onset Date Comments Paperwork/Forms 07/08/2023 Encounter Details Date Type Department Care Team (Late st Contact Info) Description 07/08/2023 Telephone [facility] MEDICINE [address] [place] [address] Juany Rodriguez MD 505 [place] [address] Paperwork/Forms Social History Tobacco Use Types Packs/Day [...] - 07/08/2023 3:25 PM EDT Tc from [facility] stated pt need a PA for medication sildenafil (Revatio) 20 MG tablet. Pt has no meds left. PCP DR. Rodriguez documented in this encounter Plan of Treatment Not on file documented as of this encounter Visit Diagnoses Not on filedocumented in this encounter Care Teams Unitizer Relationship Specialty Start Date End Date Juany Rodriguez MD [address] [place] [address] PCP - General Family Medicine 09/01/17 Dirk DENNISON 08/13/24 documented as of this encounter
--- OUTSIDE RECORDS SUMMARY | 2025-07-26 18:11 | XMS_ITS | Encounter Summary ---
Author Organization [employer] Address [address] [place] [address] 7 [place] [address] Care Team Providers Care Chief Digital Officer Name Role Phone Juany Rodriguez MD Primary Care Provider [phone] Reason for Visit * Reason Comments Med Refill Encounter Details Date Type Department Care Team ([facility] st Contact Info) Description 08/11/2024 Refill [facility] CHC MED & PEDS 505 [place], [place] [phone] Juany Rodriguez MD 505 [place], [place] [phone] Other chronic gastritis without hemorrhage Social History [...] hemorrhage documented in this encounter Care Teams Chief Digital Officer Relationship Specialty Start Date End Date Juany Rodriguez MD 505 [place] [address] PCP - General Family Medicine 09/01/17 Dirk DENNISON 08/13/24 documented as of this encounter
--- OUTSIDE RECORDS SUMMARY | 2025-07-26 18:11 | XMS_ITS | Encounter Summary ---
Author Organization [employer] Address [address] [place] [address] 7 [place] [address] Care Team Providers Care Sole Leveler Name Role Phone Juany Rodriguez MD Primary Care Provider [phone] Reason for Visit * Reason Comments Med Refill Encounter Details Date Type Department Care Team ([facility] st Contact Info) Description 05/04/2025 Refill [facility] CHC MED & PEDS [address] [place] [address] Juany Rodriguez MD 505 [place], [place] [phone] Pain Social History Tobacco Use Types Packs/Day [...] documented as of this encounter Care Teams Sole Leveler Relationship Specialty Start Date End Date Juany Rodriguez MD [address] [place] [address] PCP - General Family Medicine 09/01/17 Dirk DENNISON 08/13/24 documented as of this encounter
--- OUTSIDE RECORDS SUMMARY | 2025-07-26 18:11 | XMS_ITS | Encounter Summary ---
Author Organization [employer] Address [address] [place] [address] 7 [place] [address] Care Team Providers Care Curriculum Development Specialist Name Role Phone Juany Rodriguez MD Primary Care Provider [phone] Reason for Visit * Reason Onset Date Comments Nurse Triage 08/20/2023 Encounter Details Date Type Department Care Team (Late st Contact Info) Description 08/20/2023 Telephone [facility] MEDICINE [address] [place] [address] uJany Rodriguez MD 505 [facility] [place] [address] Nurse Triage Social History Tobacco Use Types [...] PM EST Telephone call to update [facility] with Instead visit in motion. Grand [...] at 100pm today. Declines to come to [facility] at [facility]. No aptsavailable in [place] today will obtain insted visit with [facility] insurance present. Tish agrees to [...] caller accepted this outcome Please contact Tish [phone] documented in this encounter Plan of Treatment Not on file documented as of this encounter Visit Diagnoses Not on filedocumented in this encounter Care Teams Curriculum Development Specialist Relationship Specialty Start Date End Date Juany Rodriguez MD 505 [place] [address] PCP - General Family Medicine 09/01/17 Dirk DENNISON 08/13/24 documented as of this encounter
--- OUTSIDE RECORDS SUMMARY | 2025-07-26 18:11 | XMS_ITS | Encounter Summary ---
Author Organization [employer] Address [address] [place] [address] 7 [place] [address] Care Team Providers Care Director Of Health Education Name Role Phone Juany Rodriguez MD Primary Care Provider [phone] Reason for Visit * Reason Onset Date Comments script fax 06/14/2025 Encounter Details Date Type Department Care Team ([facility] st Contact Info) Description 06/14/2025 Telephone [facility] CHC MED & PEDS [address] [place], [place] [phone] Juany Rodriguez MD 505 [place], [place] [phone] script fax Social History Tobacco Use Types [...] [facility] Contact granddaughter at [phone] documented in this encounter Plan of Treatment Not on file documented as of this encounter Visit Diagnoses Not on filedocumented in this encounter Additional Health Concerns Assessment Noted Time PHQ-9 Depression Total Score: 8 12/01/19 25 11:36 AM EDT documented as of this encounter Care Teams Director Of Health Education Relationship Specialty Start Date End Date Juany Rodriguez MD [address] [place] [address] PCP - General Family Medicine 09/01/17 Dirk DENNISON 08/13/24 documented as of this encounter
--- OUTSIDE RECORDS SUMMARY | 2025-07-26 18:11 | XMS_ITS | Encounter Summary ---
Author Organization [employer] Address [address] [place] [address] 7 [place] [address] Care Team Providers Care Senior Lead Java Developer Name Role Phone Juany Rodriguez MD Primary Care Provider [phone] Encounter Details Date Type Department Care Team (Late st Contact Info) Description 02/02/2025 Orders Only [facility] [address] [place] [address] Provider, MD Tanvir Social History Tobacco Use [...] as of this encounter Care Teams Senior Lead Java Developer Relationship Specialty Start Date End Date Juany Rodriguez MD 505 [place] [address] PCP - General Family Medicine 09/01/17 Dirk DENNISON 08/13/24 documented as of this encounter
--- OUTSIDE RECORDS SUMMARY | 2025-07-26 18:11 | XMS_ITS | Encounter Summary ---
Author Organization [employer] Address [address] [place] [address] 7 [place] [address] Care Team Providers Care Sr Account Executive Name Role Phone Juany Rodriguez MD Primary Care Provider [phone] Encounter Details Date Type Department Care Team ([facility] Contact Info) Description 07/12/2024 Orders Only [facility] CHC MED & PEDS 505 [facility] [place] [phone] Juany Rodriguez MD 505 [place], [place] [phone] Social History Tobacco Use Types Packs/Day Years [...] on filedocumented in this encounter Care Teams Sr Account Executive Relationship Specialty Start Date End Date Juany Rodriguez MD [address] [place] [address] PCP - General Family Medicine 09/01/17 Dirk DENNISON 08/13/24 documented as of this encounter
== END 2025-07-26 15:45 ==
LOC: HO.HPS 15:23
PROVIDERS: PCP Pediatrics; Visit Provider Hospitalist
DX: I27.20 Pulmonary hypertension, unspecified (principal); G47.33 Obstructive sleep apnea (adult) (pediatric); J45.40 Moderate persistent asthma, uncomplicated; R06.02 Shortness of breath; I50.32 Chronic diastolic (congestive) heart failure; W19.XXXA Unspecified fall, initial encounter
CPT/HCPCS: 99214; G2211

== ENCOUNTER 2025-07-26 15:23 | Outpatient (REF) | payer OTHER, SELFPAY ==
--- NOTE | ~2025-07-26 | XR_ITS ---
EXAMINATION: XR LUMBOSACRAL SPINE WITH OBLIQUES CLINICAL INFORMATION: W19.XXXA - Unspecified fall, initial encounter COMPARISON: None available. TECHNIQUE: AP oblique and lateral views FINDINGS: S-shaped curvature of the thoracolumbar spine. Multilevel marginal osteophyte formation and syndesmophyte formation with endplate sclerosis and decreased intervertebral disc height. Superior endplate compression deformity representing 20% volume loss at L3 and L1, likely old. Probable laminectomies at L4-5 and L5-S1. Osteopenia versus osteoporosis. No acute cortical disruption or gross malalignment. No lytic or blastic lesions. Vascular calcifications, aorta. Degenerative changes in the symphysis pubis no fully included in the ajmom-xm-pmmo. XR/XR lumbar spine 4V min IMPRESSION: Multilevel thoracolumbar spondylosis and mild scoliosis without acute fracture or listhesis. Electronically signed by: Osmel Montano MD 07/27/2025 08:10 AM HILDA
== END 2025-07-26 15:24 | disposition home or self-care (01) ==
LOC: HO.XRAY 15:23
PROVIDERS: PCP Pediatrics; Visit Provider Hospitalist
DX: J45.40 Moderate persistent asthma, uncomplicated (principal); I11.0 Hypertensive heart disease with heart failure; I50.32 Chronic diastolic (congestive) heart failure; I27.20 Pulmonary hypertension, unspecified; G47.33 Obstructive sleep apnea (adult) (pediatric); G89.12 Acute post-thoracotomy pain; W19.XXXA Unspecified fall, initial encounter; Z79.899 Other long term (current) drug therapy; Z79.01 Long term (current) use of anticoagulants
CPT/HCPCS: 72110; 99212

== ENCOUNTER → 2025-07-26 15:55 | Outpatient (BNV) | payer OTHER, SELFPAY | PROVIDERS: PCP Pediatrics; Visit Provider Radiology Diagnostic Radiology | DX: M47.815 Spondylosis without myelopathy or radiculopathy, thoracolumbar region (principal); M41.85 Other forms of scoliosis, thoracolumbar region | CPT/HCPCS: 72110 ==

== ENCOUNTER 2025-08-04 15:00 | Outpatient (AMB) | payer OTHER, SELFPAY ==
[2025-08-04 15:04] VITALS: BP 120/68; PULSE 71
--- NOTE | 2025-08-04 15:04 | MHC.OFFVIS ---
Vital Signs 08/04/25 15:04 Height 5 ft BMI Reason not done Patient refused/unable BP 120/68 Blood Pressure Location Rt brachial Position Sitting Pulse 71 Pulse Source Pulse Oximeter Intake Visit Reasons: fu Compound Machine Operator Required: Yes Compound Machine Operator Name: [id number] Accompanied by: Daughter Allergies faviola (FAVIOLA) Adverse Reaction (Intermediate, Verified 07/26/25 15:29) NAUSEA & VOMITING Penicillins (PENICILLINS) Adverse Reaction (Unknown, Verified 07/26/25 15:29) NAUSEA & VOMITING [facility] Allergy (Unknown, Uncoded 03/14/25 12:13) NAUSEA & VOMITING SARDINES Adverse Reaction (Intermediate, Uncoded 03/14/25 12:13) NAUSEA & VOMITING Medication List - Last Reconciled 08/04/25 by Josemanuel Wheeler MD acetaminophen 650 mg PO DAILY PRN albuterol sulfate 2.5 mg (3 mL) inhalation Q4H PRN albuterol sulfate 90 mcg/actuation (Ventolin HFA) 2 puffs inhalation Q4H PRN 30 days amlodipine 10 mg PO DAILY apixaban (Eliquis) 2.5 mg PO BID 90 days atorvastatin 40 mg PO BEDTIME blood sugar diagnostic (FreeStyle Lite Strips) As directed cholecalciferol (vitamin D3) 50 mcg PO DAILY cyanocobalamin (vitamin B-12) 1,000 mcg PO DAILY erythromycin 1 appl ophthalmic (eye) BEDTIME ferrous sulfate (FeroSul) 325 mg PO TID ipgxajnuoem-mgqtygsew-ujhywwbu 200-62.5-25 mcg (Trelegy Ellipta) 1 inh inhalation DAILY 30 days furosemide 40 mg PO DAILY gabapentin 200 mg PO BEDTIME hydrocortisone 1% 1 appl topical DAILY PRN inhalational spacing device (Vortex Holding Chamber) As directed insulin aspart U-100 (Novolog FlexPen U-100 Insulin aspart) See Protocol sliding scale doses subcut QIDACHS ketorolac 0.5% 1 drp ophthalmic (eye) DAILY PRN lansoprazole 30 mg PO DAILY nvcekg-ebfknmin-ccmhmgb (pork) 36,000-114,000- 180,000 unit (Creon) 1 cap PO QID lisinopril 10 mg PO DAILY meclizine 25 mg PO TID PRN metoprolol tartrate 50 mg PO BID 90 days bwhytuljqjdi-stkc-rmdmo acid 18-400 mg-mcg (Centrum Women) 1 tab PO DAILY nebulizers As directed omega 8-qfq-wvr-fish oil 300 mg (120 mg- 180mg)-1,000 mg 1 cap PO DAILY oxycodone 2.5 mg (1/2 x 5 mg) PO BID PRN peg 498-jdmxykqpsiqs-pbibprrh 1-0.2-0.2 % (Artificial Tears (ph165-rdghpecle-wwlpwogn)) 1 drp ophthalmic (eye) DAILY PRN sennosides (senna) 8.6 - 17.2 mg PO DAILY PRN sildenafil (pulm.hypertension) 20 mg PO TID 90 days simethicone 180 mg PO TID PRN sitagliptin phosphate (Januvia) 50 mg DAILY sodium polystyrene sulfonate 15 grams PO BEDTIME PRN sucralfate 1 g PO DAILY PRN sucroferric oxyhydroxide (Velphoro) 500 mg PO TID PRN vit C,O-Ec-fswls-lutein-zeaxan 250-90-40-1 mg (PreserVision AREDS-2) 1 tab PO BID HPI Comments Details: Belen returns for follow-up regarding various issues including paroxysmal atrial fibrillation, diastolic heart failure, pulmonary hypertension among others. For the last few visits she has seen a nurse practitioner. In fact I have not seen her since 2021. Due to progression of renal disease, it seems that she has been put on hemodialysis since last year. She has had chest pains at different times and still has the same symptoms. Can happen any time and on several occasions, just trying to get up from a sitting position causes it. Hence not clear if it is just musculoskeletal. A prior stress test was unremarkable. Otherwise, frail but getting along okay. Comes in a wheelchair accompanied by daughter. We discussed using spanish medical interpreter. [facility] Medical History (Updated 07/26/25 @ 19:30 by Alexandre Johnson MD) Fall ESRD on dialysis Renal failure Chronic kidney disease Shortness of breath Chest discomfort Exocrine pancreatic insufficiency ANKIT (obstructive sleep apnea) Asthma Pulmonary hypertension Vasovagal syncope Type 2 diabetes mellitus with unspecified complications Essential hypertension PAF (paroxysmal atrial fibrillation) Cardiomyopathy Surgical History No pertinent past surgical history Family History Father No problems noted. Mother No problems noted. Social History Household Members: Children Housing: Apartment Do you presently have visiting nurse or other home services: Yes (RETAIL SUPPORT ASSOCIATE) Alcohol intake: never Patient Tobacco Use Status: Never used Tobacco service: No Review of Systems Const Denies weakness ENT Denies dizziness Card Denies chest pain, Denies chest pain with activity, Denies syncope, Denies rapid heart rate, Denies pedal edema, Denies edema, Denies leg edema, Denies lightheadedness, Denies palpitations, Denies dyspnea, Denies dyspnea on exertion and Denies orthopnea Resp Denies cough, Denies dyspnea and Denies dyspnea on exertion GI Denies hematochezia and Denies change in stool character Musc Denies abnormal gait, Denies muscle cramps, Denies muscle weakness, Denies numbness, Denies radiating pain into limb and Denies tingling Neuro Denies abnormal gait, Denies dizziness, Denies syncope, Denies numbness, Denies tingling and Denies weakness Endo Denies palpitations Physical Exam Vital Signs: Last Vital Signs Pulse 71 08/04/25 15:04 BP 120/68 08/04/25 15:04 Const General: comfortable and no acute distress Orientation/consciousness: patient oriented x3 HEENT Other: Unremarkable Head: Yes normal to inspection Neck Neck: Yes normal visual inspection Chest Chest palpation & inspection: normal inspection of the chest Resp Auscultation: clear to auscultation bilaterally Cardio Palpation: normal PMI Heart sounds: S1 normal heart sound present, S2 normal heart sound present, no gallops, no murmurs and no rubs GI Palpation (GI): Soft to palpation Back/Spine/Pelvis Other: unremarkable Skin General skin exam: no rashes or lesions noted Neuro General: patient oriented x3 Extrem General: Yes normal to inspection Psych Mental Status: mental status grossly normal Assessment & Plan Assessment & Plan (1) PAF (paroxysmal atrial fibrillation): Code(s): I48.0 - Paroxysmal atrial fibrillation Category: Medical Plan: Remains in sinus rhythm. Continue beta-blockers and Eliquis. (2) Chronic diastolic (congestive) heart failure: Code(s): I50.32 - Chronic diastolic (congestive) heart failure Category: Medical Plan: In the most recent echocardiogram, LVEF is 64%. Moderate diastolic dysfunction. Myocardial perfusion imaging study from 2023 showed normal perfusion. She is already on hemodialysis and optimize fluid removal accordingly. Also listed to be on some Lasix. (3) Essential hypertension: Code(s): I10 - Essential (primary) hypertension Category: Medical Plan: Stable. No changes. (4) Pulmonary hypertension: Code(s): I27.20 - Pulmonary hypertension, unspecified Category: Medical Plan: Could be multifactorial. From some combination of diastolic heart failure, obstructive sleep apnea. She is on sildenafil. We will recheck echocardiogram. Now that she is on hemodialysis, the pulmonary Holter pressure should have improved. In that case, may be able to cut back on the sildenafil. Plan Discussed with family who came for appointment. Discussed using spanish medical interpreter. Orders: Orders CA echo transthoracic complete 09/23/25 I27.20 - Pulmonary hypertension, unspecified Coding Level of Care Code Est Pt Level 4 (36911) Complex EM visit Add On G2211 Diagnoses PAF (paroxysmal atrial fibrillation) I48.0 Chronic diastolic (congestive) heart failure I50.32 Essential hypertension I10 Pulmonary hypertension I27.20
--- OUTSIDE RECORDS SUMMARY | 2025-08-04 18:15 | XMS_ITS | Encounter Summary ---
Author Organization [employer] Address [address] [place] [address] Care Team Providers Care Supervisor Policy Change Clerks Name Role Phone Juany Rodriguez MD Primary Care Provider [phone] Encounter Details Date Type Department Care Team (Late st Contact Info) Description 10/16/2023 Abstract [facility] [address] [place], [place] [phone] Juany Rodriguez MD 505 [place], [place] [phone] Social History Tobacco Use Types Packs/Day Years [...] Care Team (Late st Contact Info) Description 08/11/2025 11:00 AM EST Office Visit [facility] CHC MED & PEDS [address] [place], [place] [phone] Juany Rodriguez MD 505 [place], [place] [phone] documented as of this encounter Visit Diagnoses Not on filedocumented in this encounter Care Teams Supervisor Policy Change Clerks Relationship Specialty Start Date End Date Juany Rodriguez MD [address] [place] [address] PCP - General Family Medicine 09/01/17 Dirk DENNISON 08/13/24 documented as of this encounter
--- OUTSIDE RECORDS SUMMARY | 2025-08-04 18:15 | XMS_ITS | Encounter Summary ---
Author Organization [employer] Address [address] [place] [address] 7 [place] [address] Care Team Providers Care Hack Driver Name Role Phone Juany Rodriguez MD Primary Care Provider [phone] Reason for Visit * Reason Onset Date Comments Paperwork/Forms 07/08/2023 Encounter Details Date Type Department Care Team (Late st Contact Info) Description 07/08/2023 Telephone [facility] MEDICINE [address] [place] [address] Juany Rodriguez MD 505 [place] [address] Paperwork/Forms Social History Tobacco Use Types Packs/Day [...] - 07/08/2023 3:25 PM EDT Tc from [email or web address] stated pt need a PA for medication sildenafil (Revatio) 20 MG tablet. Pt has no meds left. PCP DR. Rodriguez documented in this encounter Plan of Treatment Upcoming Encounters Date Type Department Care Team (Late st Contact Info) Description 08/11/2025 11:00 AM EST Office Visit [facility] MED & PEDS [address] [place] [address] Juany Rodriguez MD 505 [place] [address] documented as of this encounter Visit Diagnoses Not on filedocumented in this encounter Care Teams Hack Driver Relationship Specialty Start Date End Date Juany Rodriguez MD [address] [place] [address] PCP - General Family Medicine 09/01/17 Dirk DENNISON 08/13/24 documented as of this encounter
--- OUTSIDE RECORDS SUMMARY | 2025-08-04 18:15 | XMS_ITS | Encounter Summary ---
Author Organization [employer] Address [address] [place] [address] 7 [place] [address] Care Team Providers Care Sole Leather Cutting Machine Operator Name Role Phone Juany Rodriguez MD Primary Care Provider [phone] Reason for Visit * Reason Comments Med Refill Encounter Details Date Type Department Care Team ([facility] st Contact Info) Description 08/01/2025 Refill [facility] CHC MED & PEDS [address] [place] [address] Juany Rodriguez MD 505 [place], [place] [phone] Pain Social History Tobacco Use Types Packs/Day [...] Description 08/11/2025 11:00 AM EST Office Visit [facility] CHC MED & PEDS [address] [place] [address] Juany Rodriguez MD 505 [place] [address] documented as of this encounter Visit Diagnoses Diagnosis Pain Generalized pain documented in this encounter Additional Health Concerns Assessment Noted Time PHQ-9 Depression Total Score: 8 12/01/19 25 11:36 AM EDT documented as of this encounter Care Teams Sole Leather Cutting Machine Operator Relationship Specialty Start Date End Date Juany Rodriguez MD 505 [place] [address] PCP - General Family Medicine 09/01/17 Dirk DENNISON 08/13/24 documented as of this encounter
--- OUTSIDE RECORDS SUMMARY | 2025-08-04 18:15 | XMS_ITS | Encounter Summary ---
Author Organization [employer] Address [address] [facility] 7 [place] [address] Care Team Providers Care Commercial Real Estate Associate Name Role Phone Juany Rodriguez MD Primary Care Provider [phone] Reason for Visit * Reason Onset Date Comments Appointment Request 09/09/2024 Encounter Details Date Type Department Care Team (Late st Contact Info) Description 09/09/[address] [facility] MEDICINE [address] [place] [address] Juany Rodriguez MD 505 [facility] [place] [phone] Appointment Request Social History Tobacco Use Types [...] from PCP to consult pt availability, callback [phone] documented in this encounter Plan of Treatment Upcoming Encounters Date Type Department Care Team (Late st Contact Info) Description 08/11/2025 11:00 AM EST Office Visit [facility] CHC MED & PEDS [address] [place] [address] Juany Rodriguez MD 505 [place] [address] documented as of this encounter Visit Diagnoses Not on filedocumented in this encounter Care Teams Commercial Real Estate Associate Relationship Specialty Start Date End Date Juany Rodriguez MD [address] [place] [address] PCP - General Family Medicine 09/01/17 Dirk DENNISON 08/13/24 documented as of this encounter
--- OUTSIDE RECORDS SUMMARY | 2025-08-04 18:15 | XMS_ITS | Encounter Summary ---
Author Organization [employer] Address [address] [place] [address] 7 [place] [address] Care Team Providers Care Director Of Research And Development Name Role Phone Juany Rodriguez MD Primary Care Provider [phone] Reason for Visit * Reason Onset Date Comments Nurse Triage 08/20/2023 Encounter Details Date Type Department Care Team (Late st Contact Info) Description 08/20/2023 Telephone [facility] MEDICINE [address] [place] [address] Juany Rodriguez MD 505 [place] [address] Nurse Triage Social History Tobacco Use Types [...] 1:24 PM EST Telephone call to update [facility] with Instead visit in motion. Grand daughter agrees. * Telephone Encounter - Mraissa Echevarria RN - 08/20/2023 10:38 AM EST [...] at 100pm today. Declines to come to [facility] at [facility]. No aptsavailable in [place] today will obtain insted visit with [facility] insurance present. Tish agrees to [...] caller accepted this outcome Please contact Tish [phone] documented in this encounter Plan of Treatment Upcoming Encounters Date Type Department Care Team (Late st Contact Info) Description 08/11/2025 11:00 AM EST Office Visit [facility] CHC MED & PEDS 505 [place] [address] Juany Rodriguez MD [address] [place] [address] documented as of this encounter Visit Diagnoses Not on filedocumented in this encounter Care Teams Director Of Research And Development Relationship Specialty Start Date End Date Juany Rodriguez MD 505 [place] [address] PCP - General Family Medicine 09/01/17 Dirk DENNISON 08/13/24 documented as of this encounter
--- OUTSIDE RECORDS SUMMARY | 2025-08-04 18:15 | XMS_ITS | Encounter Summary ---
Author Organization [employer] Address [address] [place] [address] 7 [place] [address] Care Team Providers Care Blueprint Tracer Name Role Phone Juany Rodriguez MD Primary Care Provider [phone] Encounter Details Date Type Department Care Team (Late st Contact Info) Description 02/02/2025 Orders Only [facility] [address] [place] [address] Provider, MD Tanvir Social History Tobacco Use [...] Upcoming Encounters Date Type Department Care Team ([facility] st Contact Info) Description 08/11/2025 11:00 AM EST Office Visit [facility] MED & PEDS 505 [place] [address] Juany Rodriguez MD [address] [place] [address] documented as of this encounter Procedures Procedure [...] documented as of this encounter Care Teams Blueprint Tracer Relationship Specialty Start Date End Date Juany Rodriguez MD [address] [place] [address] PCP - General Family Medicine 09/01/17 Dirk DENNISON 08/13/24 documented as of this encounter
--- OUTSIDE RECORDS SUMMARY | 2025-08-04 18:16 | XMS_ITS | Encounter Summary ---
Author Organization [employer] Address [address] [place] [address] 7 [place] [address] Care Team Providers Care Programming Director Name Role Phone Juany Rodriguez MD Primary Care Provider [phone] Reason for Visit * Reason Comments Med Refill Encounter Details Date Type Department Care Team ([facility] st Contact Info) Description 08/11/2024 Refill [facility] CHC MED & PEDS [address] [place], [place] [phone] Juany Rodriguez MD [address] [place], [place] [phone] Other chronic gastritis without hemorrhage Social History [...] Upcoming Encounters Date Type Department Care Team ([facility] st Contact Info) Description 08/11/2025 11:00 AM EST Office Visit [facility] MED & PEDS [address] [place] [address] Juany Rodriguez MD [address] [place] [address] documented as of this encounter Visit Diagnoses Diagnosis Other chronic gastritis without hemorrhage documented in this encounter Care Teams Programming Director Relationship Specialty Start Date End Date Juany Rodriguez MD [address] [place] [address] PCP - General Family Medicine 09/01/17 Dirk DENNISON 08/13/24 documented as of this encounter
--- OUTSIDE RECORDS SUMMARY | 2025-08-04 18:16 | XMS_ITS | Encounter Summary ---
Author Organization [employer] Address [address] [facility] 7t [place] [address] Care Team Providers Care Day Care Assistant Name Role Phone Juany Rodriguez MD Primary Care Provider [phone] Encounter Details Date Type Department Care Team (Late st Contact Info) Description 05/14/2024 Orders Only [facility] [address] [place] [address] Rashmi Marquez MD 505 [facility] [place] [phone] Type 2 diabetes mellitus with hyperglycemia, with long-term current use of insulin ([facility]) (Primary Dx) Social History Tobacco Use Types Packs/Day Years Used Date Smoking Tobacco: Never Passive Smoke Exposure: Never Smokeless Tobacco: Never Alcohol Use Standard Drinks/Week Comments Never 0 (1 standard drink = 0.6 oz pur e alcohol) Housing Stability Answer Date Recorded What is your housing situation today? I have tiagotmoi alicea 12/31/[address] you [...] Upcoming Encounters Date Type Department Care Team ([facility] st Contact Info) Description 08/11/2025 11:00 AM EST Office Visit [facility] MED & PEDS [address] [place] [address] Juany Rodriguez MD 505 [place] [address] documented as of this encounter Visit Diagnoses Diagnosis Type 2 diabetes mellitus with hyperglycemia, with long-term current use of insulin (HCC)- Primary documented in this encounter Care Teams Day Care Assistant Relationship Specialty Start Date End Date Juany Rodriguez MD [address] [place] [address] PCP - General Family Medicine 09/01/17 Dirk DENNISON 08/13/24 documented as of this encounter
--- OUTSIDE RECORDS SUMMARY | 2025-08-04 18:16 | XMS_ITS | Encounter Summary ---
Author Organization [employer] Address [address] [place] [address] 7 [place] [address] Care Team Providers Care Supervisor Hand Workers Name Role Phone Juany Rodriguez MD Primary Care Provider [phone] Encounter Details Date Type Department Care Team ([facility] Contact Info) Description 07/12/2024 Orders Only [facility] CHC MED & PEDS 505 [facility] ABHIJIT Zimmerman [id number] Juany Rodriguez MD [address] [place], [place] [address] Social History Tobacco Use Types Packs/Day Years [...] 08/11/2025 11:00 AM EST Office Visit [facility] MED & PEDS [address] [place] [address] Juany Rodriguez MD [address] [place] [address] documented as of this encounter Visit Diagnoses Not on filedocumented in this encounter Care Teams Supervisor Hand Workers Relationship Specialty Start Date End Date Juany Rodriguez MD [address] [place] [address] PCP - General Family Medicine 09/01/17 Dirk DENNISON 08/13/24 documented as of this encounter
--- OUTSIDE RECORDS SUMMARY | 2025-08-04 18:16 | XMS_ITS | Encounter Summary ---
Author Organization [employer] Address [address] [place] [address] 7 [place] [address] Care Team Providers Care Worship Pastor Name Role Phone Juany Rodriguez MD Primary Care Provider [phone] Reason for Visit * Reason Comments Med Refill Encounter Details Date Type Department Care Team (Late st Contact Info) Description 01/12/2023 Refill [facility] MED & PEDS [address] [place], [place] [phone] Juany Rodriguez MD [address] [place], [place] [phone] Pain Social History Tobacco Use Types Packs/Day [...] Description 08/11/2025 11:00 AM EST Office Visit [facility] MED & PEDS [address] [place], [place] [phone] Juany Rodriguez MD [address] [place], [place] [phone] documented as of this encounter Visit Diagnoses Diagnosis Pain Generalized pain documented in this encounter Care Teams Worship Pastor Relationship Specialty Start Date End Date Juany Rodriguez MD [address] [place] [address] PCP - General Family Medicine 09/01/17 Dirk DENNISON 08/13/24 documented as of this encounter
--- OUTSIDE RECORDS SUMMARY | 2025-08-04 18:16 | XMS_ITS | Clinical Summary ---
Author Organization [facility] Address [address] [place] [address] Care Team Providers Care Grave Digger Name Role Phone Unavailable Primary Care Provider [...] (two) times a day. 0 12/19/2022 Active [place]-3 Fatty Acids (Fish Oil) 1000 MG CAPS [...]
--- OUTSIDE RECORDS SUMMARY | 2025-08-04 18:16 | XMS_ITS | Encounter Summary ---
Author Organization [employer] Address [address] [place] [address] 7 [place] [address] Care Team Providers Care Teacher Resource Name Role Phone Juany Rodriguez MD Primary Care Provider [phone] Reason for Visit * Reason Comments Med Refill Encounter Details Date Type Department Care Team ([facility] st Contact Info) Description 05/04/2025 Refill [facility] CHC MED & PEDS [address] [place] [address] Juany Rodriguez MD [address] [place], [place] [phone] Pain Social History Tobacco Use Types Packs/Day [...] Description 08/11/2025 11:00 AM EST Office Visit [facility] CHC MED & PEDS [address] [place] [address] Juany Rodriguez MD 505 [place] [address] documented as of this encounter Visit Diagnoses Diagnosis Pain Generalized pain documented in this encounter Additional Health Concerns Assessment Noted Time PHQ-9 Depression Total Score: 8 12/01/19 25 11:36 AM EDT documented as of this encounter Care Teams Teacher Resource Relationship Specialty Start Date End Date Juany Rodriguez MD 505 [place] [address] PCP - General Family Medicine 09/01/17 Dirk DENNISON 08/13/24 documented as of this encounter
--- OUTSIDE RECORDS SUMMARY | 2025-08-04 18:16 | XMS_ITS | Encounter Summary ---
Author Organization [employer] Address [address] [place] [address] 7 [place] [address] Care Team Providers Care Hunting And Fishing Guide Name Role Phone Juany Rodriguez MD Primary Care Provider [phone] Encounter Details Date Type Department Care Team (Latest Contact Info) Description 05/07/2022 Abstract [facility] CONVERSIONS Dental, Provider, DDS Social History Tobacco [...] Care Team ( st Contact Info) Description 08/11/2025 11:00 AM EST Office Visit [facility] CHC MED & PEDS [address] [place] [address] Juany Rodriguez MD [address] [place] [address] documented as of this encounter Visit Diagnoses Not on filedocumented in this encounter Care Teams Hunting And Fishing Guide Relationship Specialty Start Date End Date Juany Rodriguez MD 505 [place] [address] PCP - General Family Medicine 09/01/17 Dirk DENNISON 08/13/24 documented as of this encounter
--- OUTSIDE RECORDS SUMMARY | 2025-08-04 18:16 | XMS_ITS | Clinical Summary ---
Author Organization [facility] [address] [facility] Address [address] [place] [address] Phone Care Team Providers Care Clinical Research Scientist Name Role Phone Juany Rodriguez MD Primary Care Provider [phone] Allergies Active Allergy Reactions Criticality Noted Date [...] Diagnosed Date ESRD (end stage renal disease) ([facility] [place] [place] V24, [facility] V28) 01/25/2025 Surgical History Surgery Date Site/Laterality Comments OTHER SURGICAL HISTORY HERNIA REPAIR TUBAL LIGATION AV FISTULA PLACEMENT Left arm/ with coils CATARACT EXTRACTION IRIDOTOMY / IRIDECTOMY CR INSERT RORO CVC W PORT 5YRS Right Medical History Medical History Date Comments Adverse effect of anesthesia diz zeness PONV (postoperative nausea and vomiting) COPD (chronic obstructive pu lmonary disease) ([facility] [place] [place] V24, [facility] [place] V28) Hyperlipidemia Arrhythmia Hypertension Blindness cataracts,retinO MIRACLE Diabetes mellitus ([facility] [place] V24, [facility] [place] V28) GERD (gastroesophageal reflux disease) Chronic kidney [...] this topic Medical Devices Implanted Type Area Energy Conservation Specialist Device Identifier Shelf Expiration Date Model / Serial / Lot Hemostat Absorb Surgicel Nu-Knit 3x4in - Sn/A - [id number] Implanted:Qty: 1 on 02/01/2025 by Anshul Matthews MD at [facility] Hemostasis Left: Arm [employer] 08/21/2029 [id number] / N/A / [id number] Procedures Procedure Name Priority Date/Time Associated Diagnosis Comments BASIC METABOLIC PANEL Routine 02/01/2025 8:47 AM EDT from Last 3 Months or Most Recently Relevant to Health Maintenance Results * (ABNORMAL) Basic metabolic panel (02/01/2025 8:47 AM EDT) Sodium 138 133 - 145 mmol/L LAB CHEMISTRY METHOD 02/01/2025 10:10 AM [facility] Potassium 4.4 3.5 - 5.5 mmol/L LAB CHEMISTRY METHOD 02/01/2025 10:10 AM [facility] Chloride 101 96 - 110 mmol/L LAB CHEMISTRY METHOD 02/01/2025 10:10 AM [facility] CO2 31 21 - 32 mmol/L LAB CHEMISTRY METHOD 02/01/2025 10:10 AM [facility] Anion Gap 6 3 - 11 LAB CHEMISTRY METHOD 02/01/2025 10:10 AM [facility] Glucose 146(H) 70 - 100 mg/dL LAB CHEMISTRY METHOD 02/01/2025 10:10 AM [facility] BUN 55(H) 5 - 25 mg/dL LAB CHEMISTRY METHOD 02/01/2025 10:10 AM [facility] Creatinine 4.56(H) 0.50 - 1.10 mg/dL LAB CHEMISTRY METHOD 02/01/2025 10:10 AM EDT [facility] eGFR 9(L) >=60 mL/min/1. 73m2 LAB CHEMISTRY METHOD 02/01/2025 10:10 AM EDT [facility] Comment:Calculation based on the Chronic Kidney Disease Epidemiology Collaboration (CKD-EPI) equation refit without adjustment for race. BUN/Creatinine Ratio 12.1 LAB CHEMISTRY METHOD 02/01/2025 10:10 AM EDT [facility] Calcium 8.7 8.5 - 10.5 mg/dL LAB CHEMISTRY METHOD 02/01/2025 10:10 AM EDT [facility] Blood Venous blood specimen / Unknown Venipuncture / Unknown 02/01/2025 8:47 AM EDT 02/01/2025 9:36 AM EDT us Anshul Matthews MD LAB BLOOD ORDERABLES Final Result [facility] [address] [place] [address], [place] [phone] from Last 3 Months or Most Recently Relevant to Health Maintenance [place] [address] [address] [place] [address] MEDICARE Member Subscriber Plan / Payer (Ef fective 2017-Present) Name:Belen Lemus Relation to Subscriber:Self Name:Belen Lemus Payer ID:[id number] Group ID:[id number] Type:Not on file Address: [place] [address] [place] [id number] Advance Directives Documents on File Type Date Recorded Patient Director Of Career Resources Expl anation Advance Directives and Livin g Will 02/03/2025 12:58 PM [employer] Care Teams Clinical Research Scientist Relationship Specialty Start Date End Date Juany Rodriguez MD [address] [place] [phone] [facility] - General 04/22/24
--- OUTSIDE RECORDS SUMMARY | 2025-08-04 18:16 | XMS_ITS | Encounter Summary ---
Author Organization [employer] Address [address] [place] [address] 7 [place] [address] Care Team Providers Care Credit Officer Name Role Phone Juany Rodriguez MD Primary Care Provider [phone] Reason for Visit * Reason Onset Date Comments script fax 06/14/2025 Encounter Details Date Type Department Care Team ([facility] st Contact Info) Description 06/14/2025 Telephone [facility] CHC MED & PEDS [address] [place], [place] [phone] Juany Rodriguez MD [address] [place], [place] [phone] script fax Social History Tobacco Use Types [...] [facility] Contact granddaughter at [phone] documented in this encounter Plan of Treatment Upcoming Encounters Date Type Department Care Team (Late st Contact Info) Description 08/11/2025 11:00 AM EST Office Visit [facility] MED & PEDS [address] [place] [address] Juany Rodriguez MD [address] [place] [address] documented as of this encounter Visit Diagnoses Not on filedocumented in this encounter Additional Health Concerns Assessment Noted Time PHQ-9 Depression Total Score: 8 12/01/19 25 11:36 AM EDT documented as of this encounter Care Teams Credit Officer Relationship Specialty Start Date End Date Juany Rodriguez MD [address] [place] [address] PCP - General Family Medicine 09/01/17 Dirk DENNISON 08/13/24 documented as of this encounter
--- OUTSIDE RECORDS SUMMARY | 2025-08-04 18:16 | XMS_ITS | Encounter Summary ---
Author Organization [employer] Address [address] [place] [address] 7 [place] [address] Care Team Providers Care Retail Account Manager Name Role Phone Juany Rodriguez MD Primary Care Provider Reason for Visit * Reason Comments Med Refill Encounter Details Date Type Department Care Team ([facility] st Contact Info) Description 12/28/2024 Refill [facility] CHC MED & PEDS [address] [place], [place] [phone] Juany Rodriguez MD [address] [place], [place] [phone] Type 2 diabetes mellitus without complication, without [...] Description 08/11/2025 11:00 AM EST Office Visit [facility] MED & PEDS [address] [place] [address] Juany Rodriguez MD [address] [place] [address] documented as of this encounter Visit Diagnoses Diagnosis Type 2 diabetes mellitus without complication, without long-term current use of insulin (HCC) Severe pulmonary hypertension (CMS/HCC) (HCC) documented in this encounter Additional Health Concerns Assessment Noted Time PHQ-9 Depression Total Score: 8 12/01/19 25 11:36 AM EDT documented as of this encounter Care Teams Retail Account Manager Relationship Specialty Start Date End Date Juany Rodriguez MD 505 [place] [address] PCP - General Family Medicine 09/01/17 Dirk DENNISON 08/13/24 documented as of this encounter
--- OUTSIDE RECORDS SUMMARY | 2025-08-04 18:16 | XMS_ITS | Encounter Summary ---
Author Organization [employer] Address [address] [place] [address] 7 [place] [address] Care Team Providers Care Pool Player Name Role Phone Juany Rodriguez MD Primary Care Provider [phone] Encounter Details Date Type Department Care Team (Late Contact Info) Description 03/27/2023 Orders Only [facility] MED & PEDS 505 [facility] [address] Juany Rodriguez MD [address] [place] [address] Social History Tobacco Use Types Packs/Day Years [...] Department Care Team (Late Contact Info) Description 08/11/2025 11:00 AM EST Office Visit [facility] MED & PEDS [address] [place] [address] Juany Rodriguez MD [address] [place] [address] documented as of this encounter Visit Diagnoses Not on filedocumented in this encounter Care Teams Pool Player Relationship Specialty Start Date End Date Juany Rodriguez MD [address] [place] [address] PCP - General Family Medicine 09/01/17 Dirk DENNISON 08/13/24 documented as of this encounter
--- OUTSIDE RECORDS SUMMARY | 2025-08-04 18:16 | XMS_ITS | Encounter Summary ---
Author Organization [employer] Address [address] [facility] 7 [place] [address] Care Team Providers Care Program Clinician Name Role Phone Juany Rodriguez MD Primary Care Provider [phone] Reason for Visit * Reason Onset Date Comments Appointment Request 07/06/2024 Encounter Details Date Type Department Care Team (Late st Contact Info) Description 07/06/2024 Telephone [facility] MEDICINE [address] [place] [address] Juany Rodriguez MD 505 [facility] [place] [phone] Appointment Request Social History Tobacco Use Types [...] 07/06/2024 3:20 PM EDT Triage call with [employer] credit investigator jaimie Carrasco. Pt daughter had called requesting rescheduled apt . Pt had loose stools and wasn't able to leave house. New apt scheduled for 07/09/24 @ 845am with Dr. Clifford. Eufemiax bilateral pedal edema/hand swelling. [facility] was offered for today but, declined. * Telephone Encounter - Tc Johnson - 07/06/2024 2:45 PM EDT Tc from Daughter stating pt was unable to make it to today's visit and is requesting to reschedule. documented in this encounter Plan of Treatment Upcoming Encounters Date Type Department Care Team (Late st Contact Info) Description 08/11/2025 11:00 AM EST Office Visit [facility] CHC MED & PEDS [address] [place] [address] Juany Rodriguez MD 505 [place] [address] documented as of this encounter Visit Diagnoses Not on filedocumented in this encounter Care Teams Program Clinician Relationship Specialty Start Date End Date Juany Rodriguez MD [address] [place] [address] PCP - General Family Medicine 09/01/17 Dirk DENNISON 08/13/24 documented as of this encounter
--- OUTSIDE RECORDS SUMMARY | 2025-08-04 18:16 | XMS_ITS | Clinical Summary ---
Author Organization [employer] Address [address] [place] [address] 7t [place] [address] Care Team Providers Care Fur Drummer Name Role Phone Juany Rodriguez MD Primary Care Provider [phone] Allergies Active Allergy Reactions Criticality Noted Date [...] TABLET THREE TIMES DAILY 270 tablet 5 Active atorvastatin (Lipitor) 40 MG tabletIndication s:Type 2 diabetes mellitus without complication, without long-term current use of insulin (HCC),Severe pulmonary hypertension (CMS/HCC) ([facility]) TAKE ONE TABLET AT BEDTIME 90 tablet 3 Active Respiratory Therapy Supplies (Nebulizer/Tubin g/Mouthpiece) kitIndications:M [...] 0.083% nebulizer solutionIndicati ons:Severe pulmonary hypertension (CMS/HCC) ([facility]) INHALE ONE AMPULE USING A [...] Blood Pressure Monitoring (Comfort Touch BP Cuff/Medium) [facility] [place] Needs another BP cuff please to check BP 1 each 025 Active sildenafil (Revatio) 20 MG tablet TAKE ONE TABLET THREE TIMES DAILY FOUR TO SIX HOURS APART 90 tablet 3 025 Active Eliquis 2.5 MG tablet Take 1 tablet by mouth 2 times daily. Active Trelegy Ellipta 200-62.5-25 MCG/ACT aerosol powder Inhale 1 puff 1 (one) time each day at the same time. RINSE MOUTH AFTER USE 025 Active ketorolac (Acular) 0.5 % ophthalmic solution Administer 1 drop into both eyes 2 times daily. 024 Active lansoprazole (Prevacid) [address] capsule Take 1 capsule by mouth Once per day. Active lisinopril 10 MG tablet Take 1 tablet by mouth Once per day. Active Creon 89199-659750 units capsule delayed-release particles capsule Take 1 [...] without long-term current use of insulin (HCC) USE TO TEST BLOOD SUGAR FOUR TIMES DAILY 100 strip Active metoprolol tartrate (Lopressor) 50 MG tablet TAKE ONE TABLET TWICE DAILY 60 tablet Active senna (Senokot) 8.6 MG tablet TAKE TWO TABLETS EVERY DAY NEEDED FOR CONSTIPATION 60 tablet Active simethicone (Simethicone Ultra Strength) 180 MG capsuleIndicatio ns:Type 2 diabetes mellitus without complication, without long-term current use of insulin (HCC),Severe pulmonary hypertension (CMS/HCC) ([facility]) TAKE TWO CAPSULES THREE TIMES DAILY 180 capsule Active Witch Stacey (Medi-Pads) 50 % pads APPLY TO THE AFFECTED AREA(S) NEEDED FOR DISCOMFORT 100 each Active SITagliptin (Januvia) 50 MG tablet TAKE ONE TABLET EVERY DAY 30 tablet Active Embecta Pen Needle Ultrafine 31G X 5 MM miscIndications: Type 2 diabetes mellitus without complication, without long-term current use of insulin (HCC) USE THREE DAILY 100 each Active Alcohol Swabs (Alcohol Prep) 70 % padsIndications: Type 2 diabetes mellitus without complication, without long-term current use of insulin (HCC) USE THREE DAILY DIRECTED 100 each Active meclizine (Antivert) 25 MG tablet TAKE ONE TABLET BID prn dizziness 60 tablet Active cholecalciferol VITAMIN D (Vitamin D-3) 50 MCG (1999) capsule TAKE ONE CAPSULE EVERY MORNING 90 capsule 3 Active gabapentin (Neurontin) 100 MG capsule TAKE TWO CAPSULES EVERY NIGHT AT BEDTIME FOR NEUROPATHY 60 capsule 5 Active lactulose 20 gram/30 mL oral solution Take 15 mL (10 g) by mouth 2 times daily. 450 mL Active Mouthwashes (Biotene Dry Mouth) liquid Swish and spit 15 ml daily 473 mL Active furosemide (Lasix) 40 MG tabletIndication s:Type 2 diabetes mellitus without complications (HCC),Pulmonary hypertension, unspecified (CMS/HCC) (HCC) TAKE ONE TABLET TWICE DAILY 60 tablet Active acetaminophen (Tylenol) 325 MG tabletIndication s:Pain TAKE TWO TABLETS EVERY 8 HOURS NEEDED FOR PAIN 180 tablet 1 Active amLODIPine (Norvasc) 10 MG tablet TAKE ONE TABLET EVERY DAY 30 tablet 3 Active amLODIPine (Norvasc) 10 MG tablet TAKE ONE TABLET EVERY DAY 30 tablet 3 025 2024 Discontinued acetaminophen (Tylenol) 325 MG tabletIndication [...] Encounters Date Type Department Care Team Description 08/01/2025 Refill [facility] [address] [place] [address] Juany Rodriguez MD Pain 07/26/2025 Orders Only [facility] External Provider, [facility] 07/07/2025 Refill [facility] [address] [place] [address] Juany Rodriguez MD Type 2 diabetes mellitus without complications (HCC); Pulmonary hypertension, unspecified (CMS/HCC) (HCC) 06/14/2025 10:30 AM EDT Office Visit [facility] [address] [place] [address] Juany Rodriguez MD Benign essential hypertension (Primary Dx); Type 2 diabetes mellitus without complication, without long-term current use of insulin (CMS/HCC); ESRD (end stage renal disease) on dialysis (CMS/HCC) 06/14/2025 Telephone [facility] [address] [place] [address] Juany Rodriguez MD script fax 06/14/2025 Travel 06/06/2025 Telephone [facility] [address] [place] [address] Juany Rodriguez MD Durable Medical Equipment 06/06/2025 Refill [facility] [address] [place] [address] Juany Rodriguez MD Type 2 diabetes mellitus without complication, without long-term current use of insulin (CMS/HCC) 06/04/2025 Refill [facility] [address] [place] [address] Juany Rodriguez MD 06/03/2025 Refill [facility] [address] [place] [address] Juany Rodriguez MD Type 2 diabetes mellitus without complications (CMS/HCC); Pulmonary hypertension, unspecified (CMS/HCC) 05/21/2025 Refill [facility] [address] [place] [address] Juany Rodriguez MD Pain; Type 2 diabetes mellitus without complication, without long-term current use of insulin (CMS/HCC); Severe pulmonary hypertension (CMS/HCC) 05/16/2025 Telephone [facility] [address] [place] [address] Juany Rodriguez MD Med Refill 05/16/2025 Refill [facility] [address] [place] [address] Juany Rodriguez MD Type 2 diabetes mellitus without complication, without long-term current use of insulin (CMS/HCC) 05/10/2025 Refill [facility] [address] [place] [address] Juany Rodriguez MD 05/04/2025 Refill [facility] [address] [place] [address] Juany Rodriguez MD Pain from Last 3 Months Immunizations Immunization Administration Dates Next Due Hep B, adult 05/30/2022,01/02/2022,12/05/2021 INFLUENZA VACCINE QUADRIVALE NT RECOMBINANT PRESERVATIVE FREE RIV4 07/22/2022 Influenza injectable quadriv alent preservative free 10/29/2023 Influenza, High Dose Seasona l, Preservative Free 07/08/2024,09/01/2018 Pneumococcal Conjugate PCV 13 11/13/2018 Tdap 09/01/2018 Zoster, Recombinant 06/08/2019,04/20/2019 Social History Tobacco Use Types Packs/Day Years [...] 04/05/2025 3:00 PM EDT Plan of Treatment Upcoming Encounters Date Type Department Care Team ([facility] st Contact Info) Description 08/11/2025 11:00 AM EST Office Visit [facility] [address] [place], [place] [phone] Juany Rodriguez MD [address] [place], [place] [phone] Health Maintenance Due Date Last Done Comments Eye Exam 1954 RSV Patients and Patients Aged 60 years or older (1 - 1-dose 75+ series) 12/16/2019 Diabetes: Foot Exam 12/30/2024 12/31/2023, 12/31/2023, 12/31/2023, Additional history exists SDOH Screening 12/30/2024 12/31/2023 COVID-19 Vaccine ( season) 2025 08/30/2021, 02/08/2021, 01/11/2021 Lipid Panel 07/28/2025 07/28/2024 Diabetes: Hemoglobin A1C 09/13/2025 025, 11/30/2024, 05/12/2024, Additional history exists Alcohol/Substance Use Screening 11/30/2025 11/30/2024 Depression Screening 11/30/2025 11/30/2024, 12/01/19 25 Tobacco Screening 06/14/2026 06/14/2025 DTaP/Tdap/Td Vaccines (2 - Td or Tdap) 09/01/2028 09/01/2018 Zoster Vaccines Completed 06/08/2019, 04/20/2019 Hepatitis B Vaccines Completed 05/30/2022, 01/02/2022, 12/05/2021 Pneumococcal Vaccine: 50+ Years Completed 09/03/2024, 11/13/2018 Influenza Vaccine Completed 06/15/2025, , 10/29/2023, Additional history exists HIB Vaccines Aged Out No longer eligi [...] Procedure Name Priority Date/Time Associated Diagnosis Comments XR LUMBAR SPINE COMPLETE 4+ VIEWS Routine 07/26/2025 4:05 PM EST POCT GLYCATED HEMOGLOBIN, TOTAL Routine 06/14/2025 11:16 AM EDT Type 2 diabetes mellitus without complication, without long-term current use of insulin ([facility]) POCT GLUCOSE Routine 06/14/2025 11:16 AM EDT Type 2 diabetes mellitus without complication, without long-term current use of insulin ([facility]) LIPID PANEL, STANDARD Routine 07/28/2024 12:33 PM EST Dyslipidemia from Last 3 Months or Most Recently Relevant to Health Maintenance Results * XR Lumbar Spine Complete 4+ Views (07/26/2025 4:05 PM EST) Anatomical Region Laterality Modality Spine, L-spine Radiographic Guerda ging 07/26/2025 4:05 PM EST Narrative 07/27/2025 8:12 AM EST [address] [address] XRay Report Signed Patient: Belen Lemus MR#: [id number] : 1945 Acct:[id number] Age/Sex: 79 / F ADM Date: 07/26/25 Loc: HO.XRAY Attending Dr: Alexandre Johnson MD Ordering Physician: Alexandre Johnson MD Date of Service: 07/26/25 Procedure(s): XR lumbar spine 4V min Accession Number(s): [id number] cc: Juany Rodriguez MD; Alexandre Johnson MD Reason for Exam: W19.XXXA - Unspecified fall, initial encounter EXAMINATION: XR LUMBOSACRAL SPINE WITH OBLIQUES CLINICAL INFORMATION: W19.XXXA - Unspecified fall, initial encounter COMPARISON: None available. TECHNIQUE: AP oblique and lateral views FINDINGS: S-shaped curvature of the thoracolumbar spine. Multilevel marginal osteophyte formation and syndesmophyte formation with endplate sclerosis and decreased intervertebral disc height. Superior endplate compression deformity representing 20% volume loss at L3 and L1, likely old. Probable laminectomies at L4-5 and L5-S1. Osteopenia versus osteoporosis. No acute cortical disruption or gross malalignment. No lytic or blastic lesions. Vascular calcifications, aorta. Degenerative changes in the symphysis pubis no fully included in the [id number]. XR/XR lumbar spine 4V min IMPRESSION: Multilevel thoracolumbar spondylosis and mild scoliosis without acute fracture or listhesis. Electronically signed by: Osmel Montano MD 07/27/2025 08:10 AM [facility] Dictated By: Osmel Lara MD Signed By: <Electronically signed by Osmel Kerns MD in OV> 07/27/25 0810 DD/ 1605 TD/TT: 07/26/25 1617 Patent Prosecution Paralegal: Procedure Note Donotuseinterpreter, Image - 07/27/[address] [address] XRay Report Signed Patient: Belen LemusMR#: [id number] : 5Acct:[id number] Age/Sex: 79 / FADM Date: 07/26/25 Loc: SARATH Attending Dr: Alexandre Johnson MD Ordering Physician: Alexandre Johnson MD Date of Service: 07/26/25 Procedure(s): XR lumbar spine 4V min Accession Number(s): [id number] cc: Juany Rodriguez MD; Alexandre Johnson MD Reason for Exam: W19.XXXA - Unspecified fall, initial encounter EXAMINATION: XR LUMBOSACRAL SPINE WITH OBLIQUES CLINICAL INFORMATION: W19.XXXA - Unspecified fall, initial encounter COMPARISON: None available. TECHNIQUE: AP oblique and lateral views FINDINGS: S-shaped curvature of the thoracolumbar spine. Multilevel marginal osteophyte formation and syndesmophyte formation with endplate sclerosis and decreased intervertebral disc height. Superior endplate compression deformity representing 20% volume loss at L3 and L1, likely old. Probable laminectomies at L4-5 and L5-S1. Osteopenia versus osteoporosis. No acute cortical disruption or gross malalignment. No lytic or blastic lesions. Vascular calcifications, aorta. Degenerative changes in the symphysis pubis no fully included in the [id number]. XR/XR lumbar spine 4V min IMPRESSION: Multilevel thoracolumbar spondylosis and mild scoliosis without acute fracture or listhesis. Electronically signed by: Osmel Montano MD 07/27/2025 08:10 AM [facility] Dictated By: Osmel Lara MD Signed By: <Electronically signed by Osmel Kerns MDin OV> 07/27/25 0810 DD/ 1605 TD/TT: 07/26/25 1617 Patent Prosecution Paralegal: [facility] External Provider IMG XR PROCEDURES Final Result * (ABNORMAL) POCT Hgb A1c (06/14/2025 11:16 [...] 12:33 PM EST) Triglycerides 52 <150 mg/dL [facility] Comment:Desirable Triglyceri de: less than 150 mg/dLBorderline High Triglyceride 150-199 mg/dLHigh Triglyceride: 200-499 mg/dLVery High Triglyceride: greater than or equal to 5OO mg/dL Cholesterol 177 <200 mg/dL [facility] Comment:Desirable Cholestero l: less than 200 mg/dLBorderline High Cholesterol: 200-239 mg/dLHigh Cholesterol: greater than 239 mg/dL LDL Cholesterol Calculated 115(H) <100 mg/dL [facility] Comment:Desirable LDL: less than 100 mg/dLNear Optimal/Above Optimal LDL: 110- 129 mg/dLBorderline High LDL: 130-159 mg/dLHigh LDL: 160-189 mg/dLVery High LDL: greater than or equal to 190 mg/dL HDL Cholesterol 52 >40 mg/dL [facility] Comment:Desirable HDL: great er than 40 mg/dL Note: This HDL assay may give artificially low results in patients with liver disease. Blood Venous blood specimen / Unknown 07/28/2024 12:33 PM EST 07/28/2024 2:18 PM EST us Juany Rodriguez MD LAB BLOOD ORDERABLES Final Re sult [facility] [address] [facility] [place] [phone] [phone] from Last 3 Months or Most Recently Relevant to Health Maintenance Insurance [facility] [employer] (HMO D-SNP) Advance Directives Documents on File Type Date Recorded Patient Screw Machine Adjuster Automatic Expl anation Advance Directives and Livin g Will 09/20/2024 2:37 PM HCP Care Teams Fur Drummer Relationship Specialty Start Date End Date Juany Rodriguez MD [address] [facility] [place] PCP - General Family Medicine 09/01/17 [facility] 08/13/24
--- OUTSIDE RECORDS SUMMARY | 2025-08-04 18:16 | XMS_ITS | Encounter Summary ---
Author Organization [employer] Address [address] [facility] 7 [place] [address] Care Team Providers Care Dining Room Cashier Name Role Phone Juany Rodriguez MD Primary Care Provider [phone] Reason for Visit * Reason Onset Date Comments Med Refill 05/16/2025 Encounter Details Date Type Department Care Team (Late st Contact Info) Description 05/16/2025 Telephone [facility] [address] [place] [address] Juany Rodriguez MD 505 [place] [address] Med Refill Social History Tobacco Use Types [...] day supply of Vitamin D sent to [facility] on 04/05/25. Creon not prescribed by PCP (GI). Other medication pended to PCP. * Telephone Encounter - Tc Johnson - 05/16/2025 9:23 AM EDT TC from pt requesting medication refill. Medications needing refill: metoprolol tartrate (Lopressor) 50 MG tablet cholecalciferol VITAMIN D (Vitamin D-3) 50 MCG (1999 [place]) capsule Creon [id number] units capsule delayed-release particles capsule To be sent to: [facility] - [place] - [address] documented in this encounter Plan of Treatment Upcoming Encounters Date Type Department Care Team (Late st Contact Info) Description 08/11/2025 11:00 AM EST Office Visit [facility]EDS [address] [place] [address] Juany Rodriguez MD [address] [place] [address] documented as of this encounter Visit Diagnoses Not on filedocumented in this encounter Additional Health Concerns Assessment Noted Time PHQ-9 Depression Total Score: 8 12/01/19 25 11:36 AM EDT documented as of this encounter Care Teams Dining Room Cashier Relationship Specialty Start Date End Date Juany Rodriguez MD [address] [place] [address] PCP - General Family Medicine 09/01/17 Dirk DENNISON 08/13/24 documented as of this encounter
--- OUTSIDE RECORDS SUMMARY | 2025-08-04 18:16 | XMS_ITS | Encounter Summary ---
Author Organization [employer] Address [address] [place] [address] 7 [place] [address] Care Team Providers Care Shipboard Intelligence Analyst Name Role Phone Juany Rodriguez MD Primary Care Provider [phone] Reason for Visit * Reason Comments Med Refill Encounter Details Date Type Department Care Team (Late st Contact Info) Description 03/18/2023 Refill [facility] [address] [facility] [place] [address] Juany Rodriguez MD [address] [place] [address] Severe pulmonary hypertension (CMS/HCC) Social History Tobacco [...] 08/11/2025 11:00 AM EST Office Visit [facility] [address] [place] [address] Juany Rodriguez MD [address] [place] [address] documented as of this encounter Visit Diagnoses Diagnosis Severe pulmonary hypertension (CMS/HCC) (HCC) documented in this encounter Care Teams Shipboard Intelligence Analyst Relationship Specialty Start Date End Date Juany Rodriguez MD [address] [place] [address] PCP - General Family Medicine 09/01/17 Dirk DENNISON 08/13/24 documented as of this encounter
--- OUTSIDE RECORDS SUMMARY | 2025-08-04 18:16 | XMS_ITS | Encounter Summary ---
Author Organization [employer] Address [address] [facility] 7 [place] [address] Care Team Providers Care Auto Radiator Specialist Name Role Phone Juany Rodriguez MD Primary Care Provider [phone] Reason for Visit * Reason Onset Date Comments Med Refill 12/03/2024 Encounter Details Date Type Department Care Team (Late st Contact Info) Description 12/03/2024 Telephone [facility] [address] [place] [address] Juany Rodriguez MD 505 [facility] [place] [id number] Med Refill Social History Tobacco Use Types [...] 50 MG tablet To be sent to: [facility] [place] - [address] [facility] [place] [facility] documented in this encounter Plan of Treatment Upcoming Encounters Date Type Department Care Team ([facility] st Contact Info) Description 08/11/2025 11:00 AM EST Office Visit [facility] [address] [facility] [place] [address] Juany Rodriguez MD [address] [place] [address] documented as of this encounter Visit Diagnoses Not on filedocumented in this encounter Additional Health Concerns Assessment Noted Time PHQ-9 Depression Total Score: 8 12/01/19 25 11:36 AM EDT documented as of this encounter Care Teams Auto Radiator Specialist Relationship Specialty Start Date End Date Juany Rodriguez MD [address] [place] [address] PCP - General Family Medicine 09/01/17 Dirk DENNISON 08/13/24 documented as of this encounter
--- OUTSIDE RECORDS SUMMARY | 2025-08-04 18:16 | XMS_ITS | Encounter Summary ---
Author Organization [employer] Address [address] [facility] 7 [place] [address] Care Team Providers Care Hand Assembler For Puller Over Name Role Phone Juany Rodriguez MD Primary Care Provider [phone] Reason for Visit * Reason Onset Date Comments Nurse Triage 03/18/2023 Encounter Details Date Type Department Care Team (Late st Contact Info) Description 03/18/2023 Telephone [facility]INE [address] [place] [address] Juany Rodriguez MD 505 [facility] [place] [phone] Nurse Triage Social History Tobacco Use Types [...] 12:56 PM EDT Called pt daughter via Shoulder Tap field assistant [phone] [place]. No answer. Career Services Assistant left message on pt. Voicemail to call back [facility] nurses at [phone]. RE: Asthma attack. Called alternate number and [...] Upcoming Encounters Date Type Department Care Team ([facility] st Contact Info) Description 08/11/2025 11:00 AM EST Office Visit [facility] [address] [place] [address] Juany Rodriguez MD [address] [place] [address] documented as of this encounter Visit Diagnoses Diagnosis Severe pulmonary hypertension (CMS/HCC) (HCC) documented in this encounter Care Teams Hand Assembler For Puller Over Relationship Specialty Start Date End Date Juany Rodriguez MD [address] [place] [address] PCP - General Family Medicine 09/01/17 Dirk DENNISON 08/13/24 documented as of this encounter
--- OUTSIDE RECORDS SUMMARY | 2025-08-04 18:16 | XMS_ITS | Encounter Summary ---
Author Organization [employer] Address [address] [place] [address] [address] [place] [address] Care Team Providers Care Building Operator Name Role Phone Juany Rodriguez MD Primary Care Provider [phone] Reason for Visit * Reason Comments Med Refill Encounter Details Date Type Department Care Team (Late Contact Info) Description 02/03/2023 Refill [facility] PEDS [address] [place], [place] [phone] Juany Rodriguez MD [address] [place], [place] [phone] Severe pulmonary hypertension (CMS/HCC) Social History Tobacco [...] Description 08/11/2025 11:00 AM EST Office Visit [facility] [address] [place] [address] Juany Rodriguez MD [address] [place], [place] [phone] documented as of this encounter Visit Diagnoses Diagnosis Severe pulmonary hypertension (CMS/HCC) (HCC) documented in this encounter Care Teams Building Operator Relationship Specialty Start Date End Date Juany Rodriguez MD [address] [place] [address] PCP - General Family Medicine 09/01/17 Dirk DENNISON 08/13/24 documented as of this encounter
--- OUTSIDE RECORDS SUMMARY | 2025-08-04 18:16 | XMS_ITS | Encounter Summary ---
Author Organization [employer] Address [address] [facility] 7t [place] [address] Care Team Providers Care Sizing Sprayer Name Role Phone Juany Rodriguez MD Primary Care Provider [phone] Reason for Visit * Reason Comments Med Refill Encounter Details Date Type Department Care Team ([facility] st Contact Info) Description 08/11/2024 Refill [facility]EDS [address] [place], [place] [phone] Araceli Clifford MD [address] [place], [place] [phone] Social History Tobacco Use Types Packs/Day Years [...] 11:00 AM EST Office Visit [facility] P[facility] [address] [place] [address] Juany Rodriguez MD [address] [place] [address] documented as of this encounter Visit Diagnoses Not on filedocumented in this encounter Care Teams Sizing Sprayer Relationship Specialty Start Date End Date Juany Rodriguez MD [address] [place] [address] PCP - General Family Medicine 09/01/17 Dirk DENNISON 08/13/24 documented as of this encounter
== END 2025-08-04 15:28 | disposition home or self-care (01) ==
LOC: HO.HCS 15:00
PROVIDERS: Visit Provider Internal Medicine
DX: I48.0 Paroxysmal atrial fibrillation (principal); I50.32 Chronic diastolic (congestive) heart failure; I10 Essential (primary) hypertension; I27.20 Pulmonary hypertension, unspecified
CPT/HCPCS: 99214; G2211

== ENCOUNTER → 2025-08-04 15:00 | Outpatient (BNVA) | payer OTHER, SELFPAY | PROVIDERS: Visit Provider Internal Medicine | DX: I48.0 Paroxysmal atrial fibrillation (principal); I11.0 Hypertensive heart disease with heart failure; I50.32 Chronic diastolic (congestive) heart failure; I27.20 Pulmonary hypertension, unspecified | CPT/HCPCS: 99212 ==

== ENCOUNTER → 2025-08-22 23:59 | Outpatient (BNV) | payer OTHER, SELFPAY | PROVIDERS: PCP Pediatrics; Visit Provider Internal Medicine Hypertension Specialist | DX: N18.6 End stage renal disease (principal) | CPT/HCPCS: 90961 ==